=== PATIENT | male | born 1965 | race American Indian/Alaskan Native ===

== ENCOUNTER 2018-01-12 09:58 | Inpatient (IN) | payer OTHER ==
[2018-01-12 10:37] LABS: Mean Corpuscular HGB Conc 31 % (32-34); Mean Corpuscular Hemoglobin 28 pg (28-32); Mean Corpuscular Volume 90 fl (84-94); Platelet Count 263 K/mm3 (140-440); Red Blood Count 4.35 M/mm3 (3.65-5.03)
[2018-01-12 10:50] LABS: Hematocrit 39.3 % (35.5-45.6)
[2018-01-12 10:52] LABS: Calcium 8.2 mg/dL (8.4-10.2)
[2018-01-12 11:02] LABS: Bilirubin,Urine NEG (Negative); Blood,Urine MOD (Negative); Color,Urine Yellow (Yellow); Urobilinogen,Urine < 2.0 mg/dL (<2.0)
[2018-01-12 11:09] LABS: Basophils % (Manual) 0 % (0.0-1.8); Eosinophils % (Manual) 0 % (0.0-4.3); Total Cells Counted 100
[2018-01-12 11:12] LABS: Acanthocytes Few; Anisocytosis 1+; Burr Cells 2+; Large Platelets Few
[2018-01-12] MEDS ORDERED: NACL 0.9% 1000 ML 1,000 ML ONE ×2 (12:55→16:27)
[2018-01-12] MEDS ORDERED: D50W (25GM) Syringe IV PRN ×3 (13:07→19:39)
[2018-01-12] MEDS ORDERED: KIONEX ONE (13:07)
[2018-01-12] MEDS ORDERED: NACL 0.9% 1000 ML 1,000 ML IV ONE ×3 (13:07→16:30)
--- NOTE | 2018-01-12 13:27 | Emergency Department Report ---
ED General Adult HPI - General Chief complaint: Hyperglycemia Stated complaint: POSS DKA Time Seen by Provider: 01/12/18 11:28 Source: patient Mode of arrival: Wheelchair Limitations: Physical Limitation - History of Present Illness Initial comments: pt is here with diffuse abd. pain and nausea and vomiting.pt. says that he as not taken his insulin in 2 days because he left it at work Onset/Timin (day) -: Gradual Location: abdomen Radiation: non-radiation Severity scale (0 -10): 10 Quality: aching Consistency: constant Improves with: none Worsens with: none Associated Symptoms: nausea/vomiting Treatments Prior to Arrival: none - Related Data Allergies Allergy/AdvReac Type Severity Reaction Status Date / Time No Known Allergies Allergy Unverified 01/12/18 10:02 ED Review of Systems ROS: Stated complaint: POSS DKA Other details as noted in HPI Comment: All other systems reviewed and negative ED Past Medical Hx - Past Medical History Previous Medical History?: Yes Hx Hypertension: Yes Hx CVA: Yes (right sided weakness) Hx Diabetes: Yes (Insulin Pump) Additional medical history: insulin pump usage - Surgical History Past Surgical History?: No - Social History Smoking Status: Current Some Day Smoker Substance Use Type: Alcohol, Marijuana, Prescribed ED Physical Exam - General Limitations: Physical Limitation General appearance: alert, in no apparent distress - Head Head exam: Present: atraumatic, normocephalic - Eye Eye exam: Present: normal appearance. Absent: PERRL - ENT ENT exam: Present: mucous membranes dry - Neck Neck exam: Present: normal inspection - Respiratory Respiratory exam: Present: normal lung sounds bilaterally. Absent: respiratory distress - Cardiovascular Cardiovascular Exam: Present: regular rate, normal rhythm. Absent: systolic murmur, diastolic murmur, rubs, gallop - GI/Abdominal GI/Abdominal exam: Present: soft, tenderness (mild diffuse ttp), normal bowel sounds - Rectal Rectal exam: Present: deferred - Extremities Exam Extremities exam: Present: normal inspection - Back Exam Back exam: Present: normal inspection - Neurological Exam Neurological exam: Present: alert, oriented X3. Absent: CN II-XII intact - Psychiatric Psychiatric exam: Present: normal affect, normal mood - Skin Skin exam: Present: warm, dry, intact, normal color. Absent: rash ED Course Vital Signs 01/12/18 01/12/18 01/12/18 10:02 12:14 13:15 Temperature 97.8 F 98.9 F Pulse Rate 118 H 130 H Respiratory 20 22 24 Rate Blood Pressure 176/118 208/96 O2 Sat by Pulse 97 98 99 Oximetry ED Medical Decision Making - Lab Data Result diagrams: 01/12/18 10:16 01/12/18 10:16 - Radiology Data Radiology results: report reviewed - Medical Decision Making I spoke to Dr Alvarenga and he was okay with admitting to ICU. Critical care attestation.: If time is entered above; I have spent that time in minutes in the direct care of this critically ill patient, excluding procedure time. ED Disposition Clinical Impression: DKA (diabetic ketoacidoses) Disposition: DC-09 OP ADMIT IP TO THIS HOSP Is pt being admited?: Yes Does the pt Need Aspirin: No Condition: Stable Instructions: Diabetic Ketoacidosis (ED) Referrals: PRIMARY CARE, [Primary Care Provider] - 3-5 Days Time of Disposition: 13:34 Print Language: ITALIAN
[2018-01-12] MEDS ORDERED: HumuLIN R IV ONE (13:42)
[2018-01-12 13:46] LABS: Calcium 7.9 mg/dL (8.4-10.2)
[2018-01-12] MEDS ORDERED: D5W/0.45% NACL/KCL 20 MEQ 20 MEQ/1,000 ML BAG IV SCH (14:00)
[2018-01-12] MEDS ORDERED: CALCIUM GLUCONATE 1,000 MG in NACL 0.9% 100 ML IV ONE (14:00)
[2018-01-12] MEDS: HumuLIN R 100 UNITS in NACL 0.9% 99 ML IV SCH (15:00)
[2018-01-12] MEDS ORDERED: PERCOCET 5/325 PO PRN (15:01)
[2018-01-12] MEDS ORDERED: DILAUDID IV PRN (15:01)
[2018-01-12] MEDS ORDERED: AMBIEN PO PRN (15:01)
[2018-01-12] MEDS ORDERED: ZOFRAN IV PRN (15:01)
[2018-01-12] MEDS ORDERED: TYLENOL PO PRN (15:01)
[2018-01-12] MEDS ORDERED: SODIUM CHLORIDE FLUSH SYRINGE 10 ML IV PRN (15:01)
--- NOTE | 2018-01-12 15:01 | History and Physical Report ---
History of Present Illness Date of examination: 01/12/18 Date of admission: 01/12/18 13:36 Chief complaint: CC Abd pain Nausea and vomiting for 1 day. History of present illness: History of Present Illness: Patient with Hx of IDDM comes in for Nausea Vomiting and abdominal pain of 1 day.Patient has not been taking any insulin for 2 days.He left his Insulin at work and not taking his insulin for 2 days.No fever or chills. Past Medical History Hypertension: Yes CVA: Yes (right sided weakness) Diabetes: Yes (Insulin Pump) Additional medical history: Insulin pump usage Surgical History Past Surgical History?: No Social History Smoking Status: Current Some Day Smoker Substance Use Type: Alcohol, Marijuana, Prescribed Family History DM Medications and Allergies Allergies Allergy/AdvReac Type Severity Reaction Status Date / Time No Known Allergies Allergy Unverified 01/12/18 10:02 Active Meds: Active Medications Dextrose (D50w (25gm) Syringe) 0 ml IV ONCE PRN PRN Reason: Hypoglycemia Heparin Sodium (Porcine) (Heparin) 5,000 unit SUB-Q Q8H MUSA Potassium Chloride/Dextrose/Sod Cl (D5w/0.45% Nacl/Kcl 20 Meq) 20 meq in 1,000 mls @ 125 mls/hr IV DIRECT MUSA Insulin Human Regular 100 (units/ Sodium Chloride) 100 mls @ 1 mls/hr IV TITR MUSA; Protocol Review of Systems All systems: negative Constitutional: no weight loss, no weight gain, no fever, no chills, no sweats, no night sweats Ears, nose, mouth and throat: no hoarseness, no sore throat, no swelling in mouth, no swelling in throat Cardiovascular: no chest pain, no orthopnea, no palpitations, no rapid/ irregular heart beat, no edema, no syncope, no lightheadedness, no shortness of breath Respiratory: no cough, no cough with sputum, no excessive sputum, no hemoptysis , no shortness of breath, no dyspnea on exertion Gastrointestinal: abdominal pain, nausea, vomiting, no diarrhea, no constipation Genitourinary Male: no dysuria, no hematuria, no flank pain, no discharge Rectal: no pain Musculoskeletal: no neck stiffness, no neck pain, no shooting arm pain, no arm numbness/tingling, no low back pain Integumentary: no rash, no pruritis, no redness, no sores Neurological: no head injury, no transient paralysis, no paralysis, no weakness Psychiatric: no anxiety, no memory loss, no change in sleep habits, no sleep disturbances, no insomnia, no hypersomnia Endocrine: polydipsia, polyuria, nocturia Hematologic/Lymphatic: no easy bruising, no easy bleeding Exam - Constitutional Vitals: Temp Pulse Resp BP Pulse Ox 98.9 F 130 H 24 208/96 99 01/12/18 12:14 01/12/18 12:14 01/12/18 13:15 01/12/18 12:14 01/12/18 13:15 General appearance: Present: mild distress, well-nourished - EENT Eyes: Present: PERRL ENT: hearing intact, clear oral mucosa - Neck Neck: Present: supple, normal ROM - Respiratory Respiratory effort: normal Respiratory: bilateral: CTA - Cardiovascular Heart rate: 90 Rhythm: regular Heart Sounds: Present: S1 & S2. Absent: rub, click - Extremities Extremities: no ischemia, pulses intact, pulses symmetrical, No edema Peripheral Pulses: within normal limits - Abdominal General gastrointestinal: Present: soft, non-tender, non-distended, normal bowel sounds Male genitourinary: Present: normal - Rectal Rectal Exam: deferred - Integumentary Integumentary: Present: clear, warm, dry - Musculoskeletal Musculoskeletal: gait normal, strength equal bilaterally - Psychiatric Psychiatric: appropriate mood/affect, intact judgment & insight - Neurologic Neurologic: CNII-XII intact, moves all extremities - Allied Health Allied health notes reviewed: nursing, case management Results - Labs CBC & Chem 7: 01/12/18 10:16 01/12/18 16:08 Labs: Laboratory Last Values WBC 15.4 K/mm3 (4.5-11.0) H 01/12/18 10:16 RBC 4.35 M/mm3 (3.65-5.03) 01/12/18 10:16 Hgb 12.0 gm/dl (11.8-15.2) 01/12/18 10:16 Hct 39.3 % (35.5-45.6) 01/12/18 10:16 MCV 90 fl (84-94) 01/12/18 10:16 MCH 28 pg (28-32) 01/12/18 10:16 MCHC 31 % (32-34) L 01/12/18 10:16 RDW 14.0 % (13.2-15.2) 01/12/18 10:16 Plt Count 263 K/mm3 (140-440) 01/12/18 10:16 Add Manual Diff Complete 01/12/18 10:16 Total Counted 100 01/12/18 10:16 Seg Neutrophils % Wheelchair Van Operator First Responder 01/12/18 10:16 Seg Neuts % (Manual) 94.0 % (40.0-70.0) H 01/12/18 10:16 Band Neutrophils % 0 % 01/12/18 10:16 Lymphocytes % (Manual) 4.0 % (13.4-35.0) L 01/12/18 10:16 Reactive Lymphs % (Man) 0 % 01/12/18 10:16 Monocytes % (Manual) 2.0 % (0.0-7.3) 01/12/18 10:16 Eosinophils % (Manual) 0 % (0.0-4.3) 01/12/18 10:16 Basophils % (Manual) 0 % (0.0-1.8) 01/12/18 10:16 Metamyelocytes % 0 % 01/12/18 10:16 Myelocytes % 0 % 01/12/18 10:16 Promyelocytes % 0 % 01/12/18 10:16 Blast Cells % 0 % 01/12/18 10:16 Nucleated RBC % Not Reportable 01/12/18 10:16 Seg Neutrophils # Man 14.5 K/mm3 (1.8-7.7) H 01/12/18 10:16 Band Neutrophils # 0.0 K/mm3 01/12/18 10:16 Lymphocytes # (Manual) 0.6 K/mm3 (1.2-5.4) L 01/12/18 10:16 Abs React Lymphs (Man) 0.0 K/mm3 01/12/18 10:16 Monocytes # (Manual) 0.3 K/mm3 (0.0-0.8) 01/12/18 10:16 Eosinophils # (Manual) 0.0 K/mm3 (0.0-0.4) 01/12/18 10:16 Basophils # (Manual) 0.0 K/mm3 (0.0-0.1) 01/12/18 10:16 Metamyelocytes # 0.0 K/mm3 01/12/18 10:16 Myelocytes # 0.0 K/mm3 01/12/18 10:16 Promyelocytes # 0.0 K/mm3 01/12/18 10:16 Blast Cells # 0.0 K/mm3 01/12/18 10:16 WBC Morphology Not Reportable 01/12/18 10:16 Hypersegmented Neuts Not Reportable 01/12/18 10:16 Hyposegmented Neuts Not Reportable 01/12/18 10:16 Hypogranular Neuts Not Reportable 01/12/18 10:16 Smudge Cells Not Reportable 01/12/18 10:16 Toxic Granulation Not Reportable 01/12/18 10:16 Toxic Vacuolation Not Reportable 01/12/18 10:16 Dohle Bodies Not Reportable 01/12/18 10:16 Pelger-Huet Anomaly Not Reportable 01/12/18 10:16 Loi Rods Not Reportable 01/12/18 10:16 Platelet Estimate Appears normal 01/12/18 10:16 Clumped Platelets Not Reportable 01/12/18 10:16 Plt Clumps, EDTA Not Reportable 01/12/18 10:16 Large Platelets Few 01/12/18 10:16 Giant Platelets Not Reportable 01/12/18 10:16 Platelet Satelliting Not Reportable 01/12/18 10:16 Plt Morphology Comment Not Reportable 01/12/18 10:16 RBC Morphology Not Reportable 01/12/18 10:16 Dimorphic RBCs Not Reportable 01/12/18 10:16 Polychromasia Few 01/12/18 10:16 Hypochromasia Not Reportable 01/12/18 10:16 Poikilocytosis Not Reportable 01/12/18 10:16 Anisocytosis 1+ 01/12/18 10:16 Microcytosis Not Reportable 01/12/18 10:16 Macrocytosis Not Reportable 01/12/18 10:16 Spherocytes Not Reportable 01/12/18 10:16 Pappenheimer Bodies Not Reportable 01/12/18 10:16 Sickle Cells Not Reportable 01/12/18 10:16 Target Cells Not Reportable 01/12/18 10:16 Tear Drop Cells Not Reportable 01/12/18 10:16 Ovalocytes Not Reportable 01/12/18 10:16 Helmet Cells Not Reportable 01/12/18 10:[address] [place] Bodies Not Reportable 01/12/18 10:16 [place] Rings Not Reportable 01/12/18 10:16 [place] Cells 2+ 01/12/18 10:16 Bite Cells Not Reportable 01/12/18 10:16 Crenated Cell Not Reportable 01/12/18 10:16 Elliptocytes Not Reportable 01/12/18 10:16 Acanthocytes (Spur) Few 01/12/18 10:16 Rouleaux Not Reportable 01/12/18 10:16 Hemoglobin C Crystals Not Reportable 01/12/18 10:16 Schistocytes Not Reportable 01/12/18 10:16 Malaria parasites Not Reportable 01/12/18 10:16 Lev Bodies Not Reportable 01/12/18 10:16 Hem Pathologist Commnt No 01/12/18 10:16 VBG pH 7.211 (7.320-7.420) L 01/12/18 10:16 Sodium 130 mmol/L (137-145) L 01/12/18 13:21 Potassium 6.6 mmol/L (3.6-5.0) H* 01/12/18 13:21 Chloride 85.5 mmol/L (98-107) L 01/12/18 13:21 Carbon Dioxide 8 mmol/L (22-30) L* 01/12/18 13:21 Anion Gap 43 mmol/L 01/12/18 13:21 BUN 55 mg/dL (9-20) H 01/12/18 13:21 Creatinine 2.2 mg/dL (0.8-1.5) H 01/12/18 13:21 Estimated GFR 38 ml/min 01/12/18 13:21 BUN/Creatinine Ratio 25 % 01/12/18 13:21 Glucose 907 mg/dL (75-100) H* 01/12/18 13:21 POC Glucose > 500 (70-105) H 01/12/18 10:04 Calcium 7.9 mg/dL (8.4-10.2) L 01/12/18 13:21 Phosphorus 6.70 mg/dL (2.5-4.5) H 01/12/18 13:21 Magnesium 2.00 mg/dL (1.7-2.3) 01/12/18 13:21 Urine Color Yellow (Yellow) 01/12/18 10:56 Urine Turbidity Clear (Clear) 01/12/18 10:56 Urine pH 5.0 (5.0-7.0) 01/12/18 10:56 Ur Specific [place] 1.020 (1.003-1.030) 01/12/18 10:56 Urine Protein 100 mg/dl mg/dL (Negative) 01/12/18 10:56 Urine Glucose (UA) >=500 mg/dL (Negative) 01/12/18 10:56 Urine Ketones 20 mg/dL (Negative) 01/12/18 10:56 Urine Blood Mod (Negative) 01/12/18 10:56 Urine Nitrite Neg (Negative) 01/12/18 10:56 Urine Bilirubin Neg (Negative) 01/12/18 10:56 Urine Urobilinogen < 2.0 mg/dL (<2.0) 01/12/18 10:56 Ur Leukocyte Esterase Neg (Negative) 01/12/18 10:56 Urine WBC (Auto) 1.0 /HPF (0.0-6.0) 01/12/18 10:56 Urine RBC (Auto) 2.0 /HPF (0.0-6.0) 01/12/18 10:56 Assessment and Plan Assessment and plan: The high probability of a clinically significant, sudden or life threatening deterioration of the [Pulmonary, cadiac, renal] system(s) required my full and direct attention, intervention and personal management. The aggregate critical care time was [35] minutes. This time is in addition to time spent performing reported procedures but includes the following: [x] Data Review and interpretation [x] Patient assessment and monitoring of vital signs [x] Documentation [x] Medication orders and management Advance Directives: Yes (full code) VTE prophylaxis?: Chemical Plan of care discussed with patient/family: Yes - Patient Problems (1) DKA (diabetic ketoacidoses) Current Visit: Yes Status: Acute Qualifiers: Diabetes mellitus type: type 2 Plan to address problem: DKA protocol initiated Large Anion gap of 40 Dischaarge insulin regimen to be adjusted-Will defer to Hospitalist team (2) Hyperkalemia Current Visit: Yes Status: Acute Plan to address problem: Patient onIV Insulin drip K level should correct IV fluids for now (3) Acute hyponatremia Current Visit: Yes Status: Acute Plan to address problem: Sec to severe Hyperglycemia [place] correct with correction of glucose levels (4) Metabolic acidosis Current Visit: Yes Status: Acute Plan to address problem: Severe cont DKA protocol (5) DVT prophylaxis Current Visit: Yes Status: Acute Plan to address problem: On Heparin
[2018-01-12] MEDS ORDERED: MORPHINE IV PRN (15:23)
[2018-01-12 15:40] LABS: Creatinine,Urine 41.1 mg/dL (0.1-20.0)
[2018-01-12] MEDS: HEPARIN SUB-Q SCH ×3 (15:48→23:16)
[2018-01-12 16:00] LABS: Microalbumin/Creatinine Ratio 2457.4 ug/mg
[2018-01-12] MEDS ORDERED: HumuLIN R 100 UNITS in NACL 0.9% 99 ML IV SCH ×2 (16:00→20:00)
[2018-01-12 16:53] LABS: Calcium 7.8 mg/dL (8.4-10.2)
[2018-01-12 16:58] LABS: Chol/HDL Ratio 3.23 %
[2018-01-12] MEDS: KCL 10MEQ/100ML 10 MEQ/100 ML BAG IV SCH ×4 (19:57→22:16)
[2018-01-12 20:26] LABS: Calcium 7.7 mg/dL (8.4-10.2)
[2018-01-12 22:03] LABS: Calcium 7.5 mg/dL (8.4-10.2)
[2018-01-12] MEDS: SODIUM CHLORIDE FLUSH SYRINGE 10 ML IV SCH (23:16)
[2018-01-12 23:24] LABS: Calcium 7.5 mg/dL (8.4-10.2)
[2018-01-13] MEDS ORDERED: NACL 0.9% 1000 ML 1,000 ML ONE (00:31)
[2018-01-13] MEDS ORDERED: NACL 0.9% 1000 ML 1,000 ML IV SCH ×2 (01:00→07:00)
[2018-01-13] MEDS: HumuLIN R 100 UNITS in NACL 0.9% 99 ML IV SCH (01:42)
[2018-01-13 02:45] LABS: Calcium 7.6 mg/dL (8.4-10.2)
[2018-01-13 04:23] LABS: Calcium 7.5 mg/dL (8.4-10.2)
[2018-01-13 04:27] LABS: Albumin 2.1 g/dL (3.9-5); Calcium 7.6 mg/dL (8.4-10.2)
[2018-01-13] MEDS ORDERED: HumuLIN R SUB-Q ONE (05:51)
[2018-01-13] MEDS: HEPARIN SUB-Q SCH (06:48)
[2018-01-13 07:07] LABS: Calcium 7.3 mg/dL (8.4-10.2)
[2018-01-13] MEDS ORDERED: HumuLIN R SUB-Q SCH (07:30)
[2018-01-13] MEDS ORDERED: LANTUS SUB-Q ONE (09:42)
[2018-01-13] MEDS ORDERED: D50W (25GM) Syringe IV PRN (09:44)
[2018-01-13] MEDS ORDERED: K-DUR PO ONE (09:46)
[2018-01-13] MEDS: SODIUM CHLORIDE FLUSH SYRINGE 10 ML IV SCH ×2 (11:11→22:50)
--- NOTE | 2018-01-13 13:12 | Progress Note ---
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 He was treated with insulin drip and anion gap closed, insulin drip was stopped, he was placed on sliding scale but not long-acting insulin last night. This morning prior to me taking over care, his Blood glucose drop to 64 on bmp and nurse covered him with dextrose. Now blood sugars over 200 but Patient feels better and he is tolerating liquids. -DKA: ordered long acting insulin, he can resume insulin pump at home, adjusted ssi -Hypoglycemia, resolved -Tobacco dep: peer counselor on stopping -CVA with late effect: continue secondary prevention. dvt/gi prop reviewed Disposition: if blood glucose less than 300 and tolerating diet, anion gap stays close then d/c tomorrow. CCT 35 minutes, treating DKA History Interval history: Patient was seen and examined. Follow-up on current diagnosis of abdominal pain , nausea which is improved. He denies any vomiting currently. Overnight uneventful. Patient denies any chest pain, shortness breath, or severe headaches. Imaging, nursing note, chart, labs and old chart reviewed. Discussed with patient. Hospitalist Physical - Physical exam Narrative exam: GEN: WDWN, NAD, AWAKE, ALERT, ORIENTATED 3 HEENT: NCAT, EOMI, PERRL, OP Clear NECK: supple, no adenopathy, no thyromegaly, no JVD CVS/HEART: RRR, NORMAL S1S2, pulses present bilaterally CHEST/LUNGS: CTA B, Symmetrical chest expansion, good air entry bilaterally GI/Abdomen: soft, NTND, good bowel sounds, no guarding or rebound /Bladder: no suprapubic tenderness, no CVA or paraspinal tenderness EXT/Skin: no c/c/e, no obvious rash MSK: Right hemiparesis Neuro: CN 2-12 grossly intact, no new focal deficits Psych: calm - Constitutional Vitals: Temp Pulse Resp BP Pulse Ox 98.7 F 112 H 16 183/90 99 01/13/18 12:49 01/13/18 12:49 01/13/18 12:49 01/13/18 12:49 01/13/18 12:49 General appearance: Present: well-nourished Results - Labs CBC & Chem 7: 01/12/18 10:16 01/13/18 06:08 Labs: Laboratory Last Values WBC 15.4 K/mm3 (4.5-11.0) H 01/12/18 10:16 RBC 4.35 M/mm3 (3.65-5.03) 01/12/18 10:16 Hgb 12.0 gm/dl (11.8-15.2) 01/12/18 10:16 Hct 39.3 % (35.5-45.6) 01/12/18 10:16 MCV 90 fl (84-94) 01/12/18 10:16 MCH 28 pg (28-32) 01/12/18 10:16 MCHC 31 % (32-34) L 01/12/18 10:16 RDW 14.0 % (13.2-15.2) 01/12/18 10:16 Plt Count 263 K/mm3 (140-440) 01/12/18 10:16 Add Manual Diff Complete 01/12/18 10:16 Total Counted 100 01/12/18 10:16 Seg Neutrophils % [employer] Visitor 01/12/18 10:16 Seg Neuts % (Manual) 94.0 % (40.0-70.0) H 01/12/18 10:16 Band Neutrophils % 0 % 01/12/18 10:16 Lymphocytes % (Manual) 4.0 % (13.4-35.0) L 01/12/18 10:16 Reactive Lymphs % (Man) 0 % 01/12/18 10:16 Monocytes % (Manual) 2.0 % (0.0-7.3) 01/12/18 10:16 Eosinophils % (Manual) 0 % (0.0-4.3) 01/12/18 10:16 Basophils % (Manual) 0 % (0.0-1.8) 01/12/18 10:16 Metamyelocytes % 0 % 01/12/18 10:16 Myelocytes % 0 % 01/12/18 10:16 Promyelocytes % 0 % 01/12/18 10:16 Blast Cells % 0 % 01/12/18 10:16 Nucleated RBC % Not Reportable 01/12/18 10:16 Seg Neutrophils # Man 14.5 K/mm3 (1.8-7.7) H 01/12/18 10:16 Band Neutrophils # 0.0 K/mm3 01/12/18 10:16 Lymphocytes # (Manual) 0.6 K/mm3 (1.2-5.4) L 01/12/18 10:16 Abs React Lymphs (Man) 0.0 K/mm3 01/12/18 10:16 Monocytes # (Manual) 0.3 K/mm3 (0.0-0.8) 01/12/18 10:16 Eosinophils # (Manual) 0.0 K/mm3 (0.0-0.4) 01/12/18 10:16 Basophils # (Manual) 0.0 K/mm3 (0.0-0.1) 01/12/18 10:16 Metamyelocytes # 0.0 K/mm3 01/12/18 10:16 Myelocytes # 0.0 K/mm3 01/12/18 10:16 Promyelocytes # 0.0 K/mm3 01/12/18 10:16 Blast Cells # 0.0 K/mm3 01/12/18 10:16 WBC Morphology Not Reportable 01/12/18 10:16 Hypersegmented Neuts Not Reportable 01/12/18 10:16 Hyposegmented Neuts Not Reportable 01/12/18 10:16 Hypogranular Neuts Not Reportable 01/12/18 10:16 Smudge Cells Not Reportable 01/12/18 10:16 Toxic Granulation Not Reportable 01/12/18 10:16 Toxic Vacuolation Not Reportable 01/12/18 10:16 Dohle Bodies Not Reportable 01/12/18 10:16 Pelger-Huet Anomaly Not Reportable 01/12/18 10:16 Loi Rods Not Reportable 01/12/18 10:16 Platelet Estimate Appears normal 01/12/18 10:16 Clumped Platelets Not Reportable 01/12/18 10:16 Plt Clumps, EDTA Not Reportable 01/12/18 10:16 Large Platelets Few 01/12/18 10:16 Giant Platelets Not Reportable 01/12/18 10:16 Platelet Satelliting Not Reportable 01/12/18 10:16 Plt Morphology Comment Not Reportable 01/12/18 10:16 RBC Morphology Not Reportable 01/12/18 10:16 Dimorphic RBCs Not Reportable 01/12/18 10:16 Polychromasia Few 01/12/18 10:16 Hypochromasia Not Reportable 01/12/18 10:16 Poikilocytosis Not Reportable 01/12/18 10:16 Anisocytosis 1+ 01/12/18 10:16 Microcytosis Not Reportable 01/12/18 10:16 Macrocytosis Not Reportable 01/12/18 10:16 Spherocytes Not Reportable 01/12/18 10:16 Pappenheimer Bodies Not Reportable 01/12/18 10:16 Sickle Cells Not Reportable 01/12/18 10:16 Target Cells Not Reportable 01/12/18 10:16 Tear Drop Cells Not Reportable 01/12/18 10:16 Ovalocytes Not Reportable 01/12/18 10:16 Helmet Cells Not Reportable 01/12/18 10:16 [place] Bodies Not Reportable 01/12/18 10:16 [place] Rings Not Reportable 01/12/18 10:16 [place] Cells 2+ 01/12/18 10:16 Bite Cells Not Reportable 01/12/18 10:16 Crenated Cell Not Reportable 01/12/18 10:16 Elliptocytes Not Reportable 01/12/18 10:16 Acanthocytes (Spur) Few 01/12/18 10:16 Rouleaux Not Reportable 01/12/18 10:16 Hemoglobin C Crystals Not Reportable 01/12/18 10:16 Schistocytes Not Reportable 01/12/18 10:16 Malaria parasites Not Reportable 01/12/18 10:16 Lev Bodies Not Reportable 01/12/18 10:16 Hem Pathologist Commnt No 01/12/18 10:16 VBG pH 7.211 (7.320-7.420) L 01/12/18 10:16 Sodium 146 mmol/L (137-145) H 01/13/18 06:08 Potassium 3.6 mmol/L (3.6-5.0) 01/13/18 06:08 Chloride 108.8 mmol/L (98-107) H 01/13/18 06:08 Carbon Dioxide 21 mmol/L (22-30) L 01/13/18 06:08 Anion Gap 20 mmol/L 01/13/18 06:08 BUN 52 mg/dL (9-20) H 01/13/18 06:08 Creatinine 1.8 mg/dL (0.8-1.5) H 01/13/18 06:08 Estimated GFR 48 ml/min 01/13/18 06:08 BUN/Creatinine Ratio 29 % 01/13/18 06:08 Glucose 133 mg/dL (75-100) H 01/13/18 06:08 POC Glucose 253 (70-105) H 01/13/18 09:54 Hemoglobin A1c 8.3 % (4-6) H 01/12/18 16:08 Calcium 7.3 mg/dL (8.4-10.2) L 01/13/18 06:08 Phosphorus 2.80 mg/dL (2.5-4.5) D 01/12/18 19:44 Magnesium 2.10 mg/dL (1.7-2.3) 01/12/18 19:44 Total Bilirubin 0.20 mg/dL (0.1-1.2) 01/13/18 04:03 AST 40 units/L (5-40) 01/13/18 04:03 ALT 26 units/L (7-56) 01/13/18 04:03 Alkaline Phosphatase 88 units/L (35-129) 01/13/18 04:03 Total Protein 5.5 g/dL (6.3-8.2) L 01/13/18 04:03 Albumin 2.1 g/dL (3.9-5) L 01/13/18 04:03 Albumin/Globulin Ratio 0.6 % 01/13/18 04:03 Triglycerides 109 mg/dL (2-149) 01/12/18 16:08 Cholesterol 191 mg/dL (50-199) 01/12/18 16:08 LDL Cholesterol Direct 124 mg/dL (50-130) 01/12/18 16:08 HDL Cholesterol 59 mg/dL (40-59) 01/12/18 16:08 Cholesterol/HDL Ratio 3.23 % 01/12/18 16:08 Urine Color Yellow (Yellow) 01/12/18 10:56 Urine Turbidity Clear (Clear) 01/12/18 10:56 Urine pH 5.0 (5.0-7.0) 01/12/18 10:56 Ur Specific [place] 1.020 (1.003-1.030) 01/12/18 10:56 Urine Protein 100 mg/dl mg/dL (Negative) 01/12/18 10:56 Urine Glucose (UA) >=500 mg/dL (Negative) 01/12/18 10:56 Urine Ketones 20 mg/dL (Negative) 01/12/18 10:56 Urine Blood Mod (Negative) 01/12/18 10:56 Urine Nitrite Neg (Negative) 01/12/18 10:56 Urine Bilirubin Neg (Negative) 01/12/18 10:56 Urine Urobilinogen < 2.0 mg/dL (<2.0) 01/12/18 10:56 Ur Leukocyte Esterase Neg (Negative) 01/12/18 10:56 Urine WBC (Auto) 1.0 /HPF (0.0-6.0) 01/12/18 10:56 Urine RBC (Auto) 2.0 /HPF (0.0-6.0) 01/12/18 10:56 Urine Creatinine 41.1 mg/dL (0.1-20.0) H 01/12/18 10:56 Urine Microalbumin 101.0 mg/dL (0.1-34.0) H 01/12/18 10:56 Microalb/Creat Ratio 2457.4 ug/mg 01/12/18 10:56
[2018-01-13] MEDS ORDERED: NORMODYNE IV PRN (14:13)
[2018-01-13] MEDS: HumaLOG SUB-Q SCH ×3 (15:31→22:48)
[2018-01-13] MEDS ORDERED: LANTUS SUB-Q SCH (22:00)
[2018-01-13] MEDS ORDERED: NON-FORMULARY (Terazosin 5 MG) PO SCH (22:00)
[2018-01-13] MEDS: MINIPRESS PO SCH (22:47)
[2018-01-13] MEDS: COREG PO SCH (22:48)
[2018-01-14 05:43] LABS: Hematocrit 26.2 % (35.5-45.6); Hemoglobin 8.9 gm/dl (11.8-15.2); Mean Corpuscular HGB Conc 34 % (32-34); Mean Corpuscular Hemoglobin 28 pg (28-32); Mean Corpuscular Volume 81 fl (84-94); Platelet Count 211 K/mm3 (140-440); Red Blood Count 3.24 M/mm3 (3.65-5.03); Red Cell Distribution Width 13.3 % (13.2-15.2)
[2018-01-14 05:59] LABS: Calcium 7.3 mg/dL (8.4-10.2)
[2018-01-14] MEDS ORDERED: LANTUS SUB-Q SCH (08:00)
[2018-01-14 08:22] VITALS: BP 165/77
[2018-01-14] MEDS: HumaLOG SUB-Q SCH ×2 (08:56→12:19)
[2018-01-14] MEDS ORDERED: BABY ASPIRIN PO SCH (10:00)
[2018-01-14] MEDS ORDERED: PROzac PO SCH (10:00)
[2018-01-14] MEDS: COREG PO SCH (10:49)
--- NOTE | 2018-01-14 11:43 | Discharge Summary ---
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 He was treated with insulin drip and anion gap closed, insulin drip was stopped, he was placed on sliding scale but not long-acting insulin last night. This morning prior to me taking over care, his Blood glucose drop to 64 on bmp and nurse covered him with dextrose. Now blood sugars over 200 but Patient feels better and he is tolerating liquids. -DKA: ordered long acting insulin, he can resume insulin pump at home, adjusted ssi -Hypoglycemia, resolved -Tobacco dep: primary counselor on stopping -CVA with late effect: continue secondary prevention. Severe Malnutrition, poa: discuss his diet and made recommendations dvt/gi prop reviewed Disposition: DC-01 TO HOME OR SELFCARE Time spent for discharge: 35 minutes Core Measure Documentation - Palliative Care Palliative Care/ Comfort Measures: Not Applicable - Core Measures Any of the following diagnoses?: none - VTE Discharge Requirements Deep Vein Thrombosis/Pulmonary Embolism Present on Admission: No Has pt received <5 days of overlap therapy or INR<2.0: No Anticoagulant overlap therapy prescribed at discharge: No Contraindication No Overlap Therapy order at DC: Not Indicated Exam - Physical Exam Narrative exam: GEN: WDWN, NAD, AWAKE, ALERT, ORIENTATED 3 HEENT: NCAT, EOMI, PERRL, OP Clear NECK: supple, no adenopathy, no thyromegaly, no JVD CVS/HEART: RRR, NORMAL S1S2, pulses present bilaterally CHEST/LUNGS: CTA B, Symmetrical chest expansion, good air entry bilaterally GI/Abdomen: soft, NTND, good bowel sounds, no guarding or rebound /Bladder: no suprapubic tenderness, no CVA or paraspinal tenderness EXT/Skin: no c/c/e, no obvious rash MSK: Right hemiparesis Neuro: CN 2-12 grossly intact, no new focal deficits Psych: calm - Constitutional Vitals: Temp Pulse Resp BP Pulse Ox 97.8 F 85 16 165/77 96 01/14/18 07:22 01/14/18 10:55 01/14/18 07:22 01/14/18 07:22 01/14/18 07:22 Plan Activity: other (no strenous activity until cleared by pcp) Diet: diabetic Special Instructions: record blood sugar diary (with meals 3 times a day) Follow up with: PRIMARY CARE, [Primary Care Provider] - 3-5 Days
[2018-01-14] MEDS: MINIPRESS PO SCH (12:00)
[2018-01-14] MEDS: SODIUM CHLORIDE FLUSH SYRINGE 10 ML IV SCH (12:25)
== END 2018-01-14 13:00 | disposition home or self-care (01) | DRG 637 ==
LOC: ED 09:58 → CC1 13:36 → 2B-ACE 01-13 09:59 → 3A 01-14 03:19
PROVIDERS: ADMIT Internal Medicine; ATTEND Internal Medicine
DX: E13.10 Other specified diabetes mellitus with ketoacidosis without coma (principal); E43 Unspecified severe protein-calorie malnutrition; I69.351 Hemiplegia and hemiparesis following cerebral infarction affecting right dominant side; E87.1 Hypo-osmolality and hyponatremia; N28.9 Disorder of kidney and ureter, unspecified; E87.5 Hyperkalemia; I10 Essential (primary) hypertension; F17.200 Nicotine dependence, unspecified, uncomplicated; E13.649 Other specified diabetes mellitus with hypoglycemia without coma; Z68.26 Body mass index [BMI] 26.0-26.9, adult
CPT/HCPCS: 36415; 80048; 80053; 80061; 81001; 82043; 82805; 82962; 83036; 83735; 84100; 85007; 85025; 85027; 96361; 96365; 96366; 96372; 96375; A9270-GY; J0610; J1644; J1815; J7030

== ENCOUNTER 2018-03-25 13:34 | Inpatient (IN) | payer OTHER ==
[2018-03-25] MEDS ORDERED: NACL 0.9% 1000 ML 2,000 ML ONE (13:55)
[2018-03-25] MEDS ORDERED: VASELINE LIP THERAPY TP PRN (13:56)
[2018-03-25] MEDS ORDERED: ARTIFICIAL TEARS OPHTH OINT OU PRN (13:56)
[2018-03-25] MEDS ORDERED: DIPRIVAN 10 MG/ML 1,000 MG/100 ML BOTTLE IV ONE (13:56)
[2018-03-25] MEDS ORDERED: HumuLIN R ONE (13:57)
[2018-03-25] MEDS ORDERED: NACL 0.9% 500 ML IV SCH (14:00)
[2018-03-25] MEDS: DIPRIVAN 10 MG/ML 1,000 MG/100 ML BOTTLE IV SCH (14:05)
[2018-03-25] MEDS ORDERED: ZEMURON IV ONE (14:07)
[2018-03-25] MEDS ORDERED: AMIDATE IV ONE (14:07)
[2018-03-25] MEDS ORDERED: HumuLIN R IV ONE ×2 (14:08→15:29)
[2018-03-25 14:41] LABS: Basophils # (Auto) 0.1 K/mm3 (0.0-0.1); Basophils % (Auto) 0.4 % (0.0-1.8); Lymphocytes # (Auto) 1.3 K/mm3 (1.2-5.4); Lymphocytes % (Auto) 8.5 % (13.4-35.0); Mean Corpuscular HGB Conc 28 % (32-34); Mean Corpuscular Hemoglobin 27 pg (28-32); Mean Corpuscular Volume 95 fl (84-94); Monocytes # (Auto) 0.7 K/mm3 (0.0-0.8); Monocytes % (Auto) 4.7 % (0.0-7.3); Platelet Count 269 K/mm3 (140-440); Red Blood Count 3.87 M/mm3 (3.65-5.03); Red Cell Distribution Width 14.5 % (13.2-15.2)
[2018-03-25 14:43] LABS: Hematocrit 36.9 % (35.5-45.6); Hemoglobin 10.5 gm/dl (11.8-15.2)
[2018-03-25] MEDS ORDERED: VANCOMYCIN PHARMACY TO DOSE IV SCH (15:00)
[2018-03-25 15:03] LABS: Bacteria,Urine 1+ /HPF (Negative); Bilirubin,Urine NEG (Negative); Blood,Urine SM (Negative); Color,Urine Yellow (Yellow); Mucus,Urine FEW /HPF; Urobilinogen,Urine < 2.0 mg/dL (<2.0)
[2018-03-25 15:06] LABS: Calcium 8.4 mg/dL (8.4-10.2)
[2018-03-25 15:09] LABS: Alanine Aminotransferase 37 units/L (7-56); Albumin 2.6 g/dL (3.9-5)
[2018-03-25 15:10] LABS: Amphetamine Screen,Urine PRESUMPTIVE NEGATIVE; Benzodiazepines Screen,Urine PRESUMPTIVE NEGATIVE; Cannabinoid Screen,Urine PRESUMPTIVE NEGATIVE; Cocaine Screen,Urine PRESUMPTIVE NEGATIVE; Methadone Screen,Urine PRESUMPTIVE NEGATIVE; Opiate Screen,Urine PRESUMPTIVE NEGATIVE
[2018-03-25 15:13] LABS: Bilirubin,Direct < 0.2 mg/dL (0-0.2)
[2018-03-25] MEDS ORDERED: SODIUM BICARBONATE IV ONE ×2 (15:30→15:57)
[2018-03-25] MEDS ORDERED: NACL 0.9% 1000 ML 1,000 ML IV ONE (15:31)
[2018-03-25] MEDS ORDERED: CALCIUM CHLORIDE IVP ONE (15:31)
[2018-03-25] MEDS: ZOSYN/NS 3.375GM/50ML 3.375 GM/50 ML BAG IV SCH ×2 (15:45→18:30)
[2018-03-25] MEDS ORDERED: XYLOCAINE 1% 20 mL ONE (15:58)
[2018-03-25] MEDS ORDERED: HumuLIN R 100 UNITS in NACL 0.9% 99 ML IV SCH (16:00)
[2018-03-25] MEDS ORDERED: VANCOMYCIN 1,500 MG in NACL 0.9% 500 ML 500 ML IV ONE (16:00)
[2018-03-25] MEDS ORDERED: VANCOMYCIN 1,250 MG in NACL 0.9% 250ML 250 ML IV SCH (16:00)
[2018-03-25 16:09] LABS: Calcium 7.5 mg/dL (8.4-10.2)
[2018-03-25] MEDS ORDERED: CALCIUM CHLORIDE 1,000 MG in NACL 0.9% 100 ML IV ONE (17:00)
--- NOTE | 2018-03-25 17:10 | Consultation ---
History of Present Illness Consult date: 03/25/18 Requesting physician: BELEN PINK Reason for consult: other (Acute Hypoxemic Respiratory Failure; Severe Sepsis; DKA) History of present illness: PULMONARY/CCM CONSULT NOTE (Full note dictated) Please see dictated notes for full details Medications and Allergies Allergies Allergy/AdvReac Type Severity Reaction Status Date / Time No Known Allergies Allergy Unverified 01/12/18 10:02 Home Medications Medication Instructions Recorded Confirmed Last Taken Type Aspirin 81 mg PO DAILY 01/13/18 01/13/18 Unknown History AtorvaSTATin [Lipitor] 40 mg PO QHS 01/13/18 01/13/18 Unknown History Carvedilol [Coreg] 6.25 mg PO BID 01/13/18 01/13/18 Unknown History FLUoxetine [PROzac] 10 mg PO QDAY 01/13/18 01/13/18 Unknown History Fluconazole [Diflucan] 200 mg PO 1XW 01/13/18 01/13/18 Unknown History Lisinopril/Hydrochlorothiazide 1 tab PO QDAY 01/13/18 01/13/18 Unknown History [Zestoretic 20-12.5 mg] Terazosin [Hytrin] 5 mg PO QHS 01/13/18 01/13/18 Unknown History Active Meds: Active Medications Dextrose (D50w (25gm) Syringe) 0 ml IV ONCE PRN PRN Reason: Hypoglycemia Hydrophilic Ointment (Vaseline Lip Therapy) 1 applic TP Q2HR PRN PRN Reason: Dry Lips Propofol (Diprivan 10 Mg/Ml) 1,000 mg in 100 mls @ 2.585 mls/hr IV TITR MUSA; Protocol Last Admin: 03/25/18 14:05 Dose: 5 mcg/kg/min, 2.585 mls/hr Piperacillin Sod/Tazobactam Sod (Zosyn/Ns 3.375gm/50ml) 3.375 gm in 50 mls @ 100 mls/hr IV Q6HR MUSA; Protocol Insulin Human Regular 100 (units/ Sodium Chloride) 100 mls @ 1 mls/hr IV TITR MUSA; Protocol Vancomycin HCl 1,500 mg/ (Sodium Chloride) 515 mls @ 333.333 mls/hr IV ONCE ONE Stop: 03/25/18 17:32 Vancomycin HCl 1,250 mg/ (Sodium Chloride) 262.5 mls @ 166.667 mls/hr IV Q24H MUSA Calcium Chloride 1,000 mg/ (Sodium Chloride) 110 mls @ 330 mls/hr IV ONCE ONE Stop: 03/25/18 17:19 Multi-Ingred Cream/Lotion/Oil/Oint (Artificial Tears Ophth Oint) 1 applic OU Q4HR PRN PRN Reason: Dry Eye(s) Sodium Chloride (Nacl 0.9% 500 Ml) 1 ml IV DIRECT MUSA Vancomycin HCl (Vancomycin Pharmacy To Dose) 1 each IV PKCONSULT MUSA; Protocol Physical Examination Vital signs: Vital Signs Pulse Resp 144 H 46 H 03/25/18 13:41 03/25/18 13:41 Results - Laboratory Findings CBC and BMP: 03/25/18 14:00 03/25/18 15:40 ABG POC ABG pH 6.952 (7.35-7.45) L 03/25/18 14:29 POC ABG pCO2 25.8 (35-45) L 03/25/18 14:29 POC ABG pO2 559 (80-105) H 03/25/18 14:29 POC ABG HCO3 5.7 03/25/18 14:29 POC ABG Total CO2 6 03/25/18 14:29 POC ABG O2 Sat 100 03/25/18 14:29 Abnormal lab findings: Abnormal Labs 03/25/18 03/25/18 03/25/18 13:48 14:00 14:00 WBC 15.3 H Hgb 10.5 L MCV 95 H MCH 27 L MCHC 28 L Lymph % (Auto) 8.5 L Seg Neutrophils % 86.4 H Seg Neutrophils # 13.2 H POC ABG pH POC ABG pCO2 POC ABG pO2 VBG pH Sodium 132 L Potassium 8.1 H* Chloride 87.8 L Carbon Dioxide 3 L* BUN 43 H Creatinine 2.6 H Glucose 1026 H* POC Glucose > 500 H Lactic Acid Calcium Phosphorus Albumin 03/25/18 03/25/18 03/25/18 14:00 14:08 14:29 WBC Hgb MCV MCH MCHC Lymph % (Auto) Seg Neutrophils % Seg Neutrophils # POC ABG pH 6.952 L POC ABG pCO2 25.8 L POC ABG pO2 559 H VBG pH Sodium Potassium Chloride Carbon Dioxide BUN Creatinine Glucose POC Glucose Lactic Acid 10.10 H* Calcium Phosphorus 8.70 H Albumin 2.6 L 03/25/18 03/25/18 03/25/18 14:41 15:40 15:40 WBC Hgb MCV MCH MCHC Lymph % (Auto) Seg Neutrophils % Seg Neutrophils # POC ABG pH POC ABG pCO2 POC ABG pO2 VBG pH 7.000 L* Sodium Potassium 6.7 H* Chloride 97.5 L Carbon Dioxide 5 L* BUN 43 H Creatinine 2.5 H Glucose 893 H* POC Glucose Lactic Acid Calcium 7.5 L Phosphorus 9.10 H Albumin
--- NOTE | 2018-03-25 17:20 | XRay Report ---
FINAL REPORT PROCEDURE: XR CHEST 1V AP TECHNIQUE: Chest radiograph anteroposterior view. CPT 70161 HISTORY: line placement COMPARISON: No prior studies are available for comparison. FINDINGS: There is an endotracheal to in place. The tip lies 5 centimeters above the marleni. Right jugular central venous line in place. Tip projects in the mid SVC. No evidence of pneumothorax. Lungs are clear. Tip of the right lateral costophrenic angle is excluded, this does limit the exam. Lung armas otherwise. No acute bony abnormalities are seen. Heart is magnified due to projection although appears to be size. Pulmonary vasculature appears normal. IMPRESSION: Endotracheal tube and central venous line in place as described. No evidence of pneumothorax. No acute abnormalities are identified..
--- NOTE | 2018-03-25 17:36 | Emergency Department Report ---
ED General Adult HPI - General Chief complaint: Hyperglycemia Stated complaint: SEVERINO Time Seen by Provider: 03/25/18 14:40 Source: EMS Mode of arrival: Stretcher Limitations: Altered Mental Status - History of Present Illness Initial comments: This is a 52-year-old insulin-dependent diabetic who was found essentially obtunded in his residence. No history was obtainable from the patient. Family members state that they have not seen him for perhaps 48 hours. He was found by his brother and obviously dire condition and EMS was notified. Medics transported to the patient to this facility fighting a sugar to be above the scale. The patient had been disconnected from his insulin pump. He was placed in a resuscitation room. He was deemed to be unable to adequately protect his airway. His respiratory rate was about 50. He was thus intubated using rapid sequence intubation technique. Later I spoke to the [facility] doctor (Dr. Carrera? sp). She stated that actually the patient had been seen in the [facility] on Sunday. He was found to have a sugar greater than 1000. He was given insulin and fluid. Apparently he was discharged with a sugar in the 400s. At that time he was fully ambulatory. He was documented to be in "good spirits". -: days(s) - Related Data Home Medications Medication Instructions Recorded Confirmed Last Taken Aspirin 81 mg PO DAILY 01/13/18 01/13/18 Unknown AtorvaSTATin [Lipitor] 40 mg PO QHS 01/13/18 01/13/18 Unknown Carvedilol [Coreg] 6.25 mg PO BID 01/13/18 01/13/18 Unknown FLUoxetine [PROzac] 10 mg PO QDAY 01/13/18 01/13/18 Unknown Fluconazole [Diflucan] 200 mg PO 1XW 01/13/18 01/13/18 Unknown Lisinopril/Hydrochlorothiazide 1 tab PO QDAY 01/13/18 01/13/18 Unknown [Zestoretic 20-12.5 mg] Terazosin [Hytrin] 5 mg PO QHS 01/13/18 01/13/18 Unknown Allergies Allergy/AdvReac Type Severity Reaction Status Date / Time No Known Allergies Allergy Unverified 01/12/18 10:02 ED Review of Systems ROS: Stated complaint: SEVERINO Other details as noted in HPI Comment: Unobtainable due to pts medical conditions ED Past Medical Hx - Past Medical History Previous Medical History?: Yes Hx Hypertension: Yes Hx CVA: Yes (right sided weakness) Hx Diabetes: Yes (Has an Insulin pump at home) Hx HIV: No Additional medical history: insulin pump usage - Surgical History Past Surgical History?: No - Social History Smoking Status: Never Smoker - Medications Home Medications: Home Medications Medication Instructions Recorded Confirmed Last Taken Type Aspirin 81 mg PO DAILY 01/13/18 01/13/18 Unknown History AtorvaSTATin [Lipitor] 40 mg PO QHS 01/13/18 01/13/18 Unknown History Carvedilol [Coreg] 6.25 mg PO BID 01/13/18 01/13/18 Unknown History FLUoxetine [PROzac] 10 mg PO QDAY 01/13/18 01/13/18 Unknown History Fluconazole [Diflucan] 200 mg PO 1XW 01/13/18 01/13/18 Unknown History Lisinopril/Hydrochlorothiazide 1 tab PO QDAY 01/13/18 01/13/18 Unknown History [Zestoretic 20-12.5 mg] Terazosin [Hytrin] 5 mg PO QHS 01/13/18 01/13/18 Unknown History ED Physical Exam - General Limitations: Altered Mental Status General appearance: obtunded - Head Head exam: Present: atraumatic - Eye Eye exam: Present: PERRL, other (somewhat roving eye movements). Absent: scleral icterus Pupils: Present: other (reactive) - ENT ENT exam: Present: mucous membranes dry - Neck Neck exam: Absent: tenderness, meningismus - Respiratory Respiratory exam: Present: normal lung sounds bilaterally - Cardiovascular Cardiovascular Exam: Present: tachycardia - GI/Abdominal GI/Abdominal exam: Present: soft, normal bowel sounds. Absent: distended, tenderness (none apparent), guarding, rebound - Extremities Exam Extremities exam: Present: normal inspection - Neurological Exam Neurological exam: Present: altered, other (moving all extremities but essentially obtunded. Does not specifically respond to pain stimulation.) - Psychiatric Psychiatric exam: Present: other (inapplicable) - Skin Skin exam: Absent: warm, dry ED Course Vital Signs 03/25/18 03/25/18 03/25/18 13:41 13:46 13:57 Pulse Rate 144 H 140 H 130 H Respiratory 46 H 46 H Rate Blood Pressure 148/50 O2 Sat by Pulse 100 100 Oximetry 03/25/18 03/25/18 03/25/18 14:00 14:15 14:30 Pulse Rate 137 H 128 H 122 H Respiratory 55 H 30 H 30 H Rate Blood Pressure 148/50 117/51 91/44 O2 Sat by Pulse 100 100 97 Oximetry 03/25/18 03/25/18 03/25/18 14:45 15:00 15:15 Pulse Rate 121 H 118 H 117 H Respiratory 30 H 30 H 30 H Rate Blood Pressure 89/43 76/39 84/43 O2 Sat by Pulse 99 96 97 Oximetry 03/25/18 03/25/18 03/25/18 15:30 15:45 16:00 Pulse Rate 119 H 123 H 128 H Respiratory 30 H 28 H 28 H Rate Blood Pressure 85/41 96/44 109/61 O2 Sat by Pulse 98 100 Oximetry 03/25/18 16:47 Pulse Rate 129 H Respiratory Rate Blood Pressure 128/60 O2 Sat by Pulse 100 Oximetry - Reevaluation(s) Reevaluation #1: The patient was given 50 mg a rock erroneous man 6 mg of etomidate. He was intubated using a Mac 4 and #8 Lithuanian endotracheal tube secured at 23 cm at the teeth. End-tidal CO2 was positive. There were good breath sounds bilaterally. Tube position was confirmed with an x-ray. The patient was placed on a propofol drip for sedation. The patient had a 12-lead EKG that which was consistent with hyperkalemia and tachycardia at about 135. He was given 6 units of insulin empirically. His laboratory returned shortly thereafter. He was found to have a sugar of greater than 1000. His CO2 was 3 and his potassium was greater than 8. He was given 6 additional units of insulin IV. His pH was 6.9. I decided that one amp of bicarbonate and 1 amp of calcium chloride was reasonable. This was given. Insulin drip was started. He received at least 4 L of normal saline during the course of care. I spoke to her plant protection officer about the patient's findings. He felt that the patient's metabolic disorder with likely improve with the above interventions. He was in agreement with what had been done so far. He stated he would see the patient. On reexam the patient continued to the lethargic. His propofol drip was turned off because his blood pressure was somewhat low. The blood pressure did improve with additional fluids. However due to his lactic acid level of 10 and obvious dire illness I decided to place a central line. This was placed without difficulty, usual Seldinger technique, 1 puncture in the left internal jugular vein. A confirmatory x-ray showed good endotracheal and line placement and no acute pulmonary process. I spoke with Dr. Cooper the shearing machine tender. It was Dr. Murphy that came to see and examine the patient. We went over the findings thus far. Dr. Harrison has admitted the patient to the intensive care unit. He is still being head held in the emergency department. Veins hemodynamically stable. Further care will be with the above consultants and the hospitalist service. 03/25/18 19:26 Reevaluation #2: The patient was given empiric antibiotics shortly after my initial encounter processes Zosyn and vancomycin. 03/25/18 19:32 03/25/18 19:[address] of the patient's head has long been ordered. I will remind the nursing staff of the need to complete. ED Medical Decision Making - Lab Data Result diagrams: 03/25/18 14:00 03/25/18 18:12 Laboratory Results - last 24 hr 03/25/18 03/25/18 03/25/18 13:48 14:00 14:00 WBC 15.3 H RBC 3.87 Hgb 10.5 L Hct 36.9 MCV 95 H MCH 27 L MCHC 28 L RDW 14.5 Plt Count 269 Lymph % (Auto) 8.5 L [place] % (Auto) 4.7 Eos % (Auto) 0.0 Baso % (Auto) 0.4 Lymph # 1.3 [place]racken # 0.7 Eos # 0.0 Baso # 0.1 Seg Neutrophils % 86.4 H Seg Neutrophils # 13.2 H POC ABG pH POC ABG pCO2 POC ABG pO2 POC ABG HCO3 POC ABG Total CO2 POC ABG O2 Sat POC ABG Base Excess VBG pH FiO2 Sodium Potassium Chloride Carbon Dioxide Anion Gap BUN Creatinine Estimated GFR BUN/Creatinine Ratio Glucose POC Glucose > 500 H Lactic Acid Calcium Phosphorus Magnesium Total Bilirubin Direct Bilirubin Indirect Bilirubin AST ALT Alkaline Phosphatase Total Protein Albumin Albumin/Globulin Ratio Urine Color Yellow Urine Turbidity Clear Urine pH 5.0 Ur Specific [place] 1.021 Urine Protein 100 mg/dl Urine Glucose (UA) >=500 Urine Ketones 80 Urine Blood Sm Urine Nitrite Neg Urine Bilirubin Neg Urine Urobilinogen < 2.0 Ur Leukocyte Esterase Neg Urine WBC (Auto) 1.0 Urine RBC (Auto) 1.0 Urine Bacteria (Auto) 1+ Urine Mucus Few Urine Opiates Screen Urine Methadone Screen Ur Barbiturates Screen Ur Phencyclidine Scrn Ur Amphetamines Screen U Benzodiazepines Scrn Urine Cocaine Screen U Marijuana (THC) Screen Drugs of Abuse Note 03/25/18 03/25/18 03/25/18 14:00 14:00 14:08 WBC RBC Hgb Hct MCV MCH MCHC RDW Plt Count Lymph % (Auto) [place] % (Auto) Eos % (Auto) Baso % (Auto) Lymph # [place] # Eos # Baso # Seg Neutrophils % Seg Neutrophils # POC ABG pH POC ABG pCO2 POC ABG pO2 POC ABG HCO3 POC ABG Total CO2 POC ABG O2 Sat POC ABG Base Excess VBG pH FiO2 Sodium 132 L Potassium 8.1 H* Chloride 87.8 L Carbon Dioxide 3 L* Anion Gap 49 BUN 43 H Creatinine 2.6 H Estimated GFR 32 BUN/Creatinine Ratio 17 Glucose 1026 H* POC Glucose Lactic Acid 10.10 H* Calcium 8.4 Phosphorus 8.70 H Magnesium 2.20 Total Bilirubin 0.30 Direct Bilirubin < 0.2 Indirect Bilirubin 0.1 AST 34 ALT 37 Alkaline Phosphatase 113 Total Protein 6.5 Albumin 2.6 L Albumin/Globulin Ratio 0.7 Urine Color Urine Turbidity Urine pH Ur Specific [place] Urine Protein Urine Glucose (UA) Urine Ketones Urine Blood Urine Nitrite Urine Bilirubin Urine Urobilinogen Ur Leukocyte Esterase Urine WBC (Auto) Urine RBC (Auto) Urine Bacteria (Auto) Urine Mucus Urine Opiates Screen Urine Methadone Screen Ur Barbiturates Screen Ur Phencyclidine Scrn Ur Amphetamines Screen U Benzodiazepines Scrn Urine Cocaine Screen U Marijuana (THC) Screen Drugs of Abuse Note 03/25/18 03/25/18 03/25/18 14:19 14:29 14:41 WBC RBC Hgb Hct MCV MCH MCHC RDW Plt Count Lymph % (Auto) [place] % (Auto) Eos % (Auto) Baso % (Auto) Lymph # [place] # Eos # Baso # Seg Neutrophils % Seg Neutrophils # POC ABG pH 6.952 L POC ABG pCO2 25.8 L POC ABG pO2 559 H POC ABG HCO3 5.7 POC ABG Total CO2 6 POC ABG O2 Sat 100 POC ABG Base Excess -26 VBG pH 7.000 L* FiO2 100 Sodium Potassium Chloride Carbon Dioxide Anion Gap BUN Creatinine Estimated GFR BUN/Creatinine Ratio Glucose POC Glucose Lactic Acid Calcium Phosphorus Magnesium Total Bilirubin Direct Bilirubin Indirect Bilirubin AST ALT Alkaline Phosphatase Total Protein Albumin Albumin/Globulin Ratio Urine Color Urine Turbidity Urine pH Ur Specific [place] Urine Protein Urine Glucose (UA) Urine Ketones Urine Blood Urine Nitrite Urine Bilirubin Urine Urobilinogen Ur Leukocyte Esterase Urine WBC (Auto) Urine RBC (Auto) Urine Bacteria (Auto) Urine Mucus Urine Opiates Screen Presumptive negative Urine Methadone Screen Presumptive negative Ur Barbiturates Screen Presumptive negative Ur Phencyclidine Scrn Presumptive negative Ur Amphetamines Screen Presumptive negative U Benzodiazepines Scrn Presumptive negative Urine Cocaine Screen Presumptive negative U Marijuana (THC) Screen Presumptive negative Drugs of Abuse Note Disclamer 03/25/18 03/25/18 15:40 15:40 WBC RBC Hgb Hct MCV MCH MCHC RDW Plt Count Lymph % (Auto) [place] % (Auto) Eos % (Auto) Baso % (Auto) Lymph # [place] # Eos # Baso # Seg Neutrophils % Seg Neutrophils # POC ABG pH POC ABG pCO2 POC ABG pO2 POC ABG HCO3 POC ABG Total CO2 POC ABG O2 Sat POC ABG Base Excess VBG pH FiO2 Sodium 137 Potassium 6.7 H* Chloride 97.5 L Carbon Dioxide 5 L* Anion Gap 41 BUN 43 H Creatinine 2.5 H Estimated GFR 33 BUN/Creatinine Ratio 17 Glucose 893 H* POC Glucose Lactic Acid Calcium 7.5 L Phosphorus 9.10 H Magnesium 2.10 Total Bilirubin Direct Bilirubin Indirect Bilirubin AST ALT Alkaline Phosphatase Total Protein Albumin Albumin/Globulin Ratio Urine Color Urine Turbidity Urine pH Ur Specific [place] Urine Protein Urine Glucose (UA) Urine Ketones Urine Blood Urine Nitrite Urine Bilirubin Urine Urobilinogen Ur Leukocyte Esterase Urine WBC (Auto) Urine RBC (Auto) Urine Bacteria (Auto) Urine Mucus Urine Opiates Screen Urine Methadone Screen Ur Barbiturates Screen Ur Phencyclidine Scrn Ur Amphetamines Screen U Benzodiazepines Scrn Urine Cocaine Screen U Marijuana (THC) Screen Drugs of Abuse Note - EKG Data -: EKG Interpreted by Me EKG shows normal: sinus rhythm Rate: tachycardia - EKG Data Interpretation: other (consistent with hyperkalemia) - Radiology Data interpreted by me: Good tube physicians as above. No acute pulmonary process seen. Critical Care Time: Yes Critical care time in (mins) excluding proc time.: 120 Critical care attestation.: If time is entered above; I have spent that time in minutes in the direct care of this critically ill patient, excluding procedure time. ED Disposition Clinical Impression: Hyperkalemia, Metabolic acidosis, Lactic acidosis DKA (diabetic ketoacidoses) Qualifiers: Diabetes mellitus type: type 1 Diabetes mellitus complication detail: with coma Qualified Code(s): E10.11 - Type 1 diabetes mellitus with ketoacidosis with coma Acute renal failure Qualifiers: Acute renal failure type: unspecified Qualified Code(s): N17.9 - Acute kidney failure, unspecified Disposition: DC-09 OP ADMIT IP TO THIS HOSP Is pt being admited?: Yes Does the pt Need Aspirin: Yes Condition: Stable Time of Disposition: 19:36
--- NOTE | 2018-03-25 18:06 | History and Physical Report ---
History of Present Illness Date of examination: 03/25/18 Date of admission: 03/25/18 16:07 Chief complaint: Chief complaint: Abd pain Nausea and vomiting for 1 day. History of present illness: History of present illness: History of Present Illness: Patient with Hx of IDDM comes in for Nausea Vomiting and abdominal pain of 2 days duration.Patient has not been taking any insulin for 2 days.He left his Insulin at work and not taking his insulin for 2 days.No fever or chills. Patient has an insulin pump. Patient is very noncompliant. Patient is admitted for about 3 days and discharged on 03/16/2018. Patient's blood sugars at the time of discharge were 200 and now the blood sugars remain around 800. Patient is obtunded and lethargic--- hence intubated in the ER for protection of airway. No fever or chills. No shortness of breath. No diarrhea. No recent travel. Past Medical History Hypertension: Yes CVA: Yes (right sided weakness) Diabetes: Yes (Insulin Pump) Additional medical history: Insulin pump usage Surgical History Past Surgical History?: No Social History Smoking Status: Current Some Day Smoker Substance Use Type: Alcohol, Marijuana, Prescribed Family History DM Medications and Allergies Allergies Allergy/AdvReac Type Severity Reaction Status Date / Time No Known Allergies Allergy Unverified 01/12/18 10:02 Active Meds: Active Medications Dextrose (D50w (25gm) Syringe) 0 ml IV ONCE PRN PRN Reason: Hypoglycemia Heparin Sodium (Porcine) (Heparin) 5,000 unit SUB-Q Q8H [facility] Potassium Chloride/Dextrose/Sod Cl (D5w/0.45% Nacl/Kcl 20 Meq) 20 meq in 1,000 mls @ 125 mls/hr IV DIRECT [facility] Insulin Human Regular 100 (units/ Sodium Chloride) 100 mls @ 1 mls/hr IV TITR [facility]; Protocol Review of Systems All systems: negative Constitutional: no weight loss, no weight gain, no fever, no chills, no sweats, no night sweats Ears, nose, mouth and throat: no hoarseness, no sore throat, no swelling in mouth, no swelling in throat Cardiovascular: no chest pain, no orthopnea, no palpitations, no rapid/ irregular heart beat, no edema, no syncope, no lightheadedness, no shortness of breath Respiratory: no cough, no cough with sputum, no excessive sputum, no hemoptysis , no shortness of breath, no dyspnea on exertion Gastrointestinal: abdominal pain, nausea, vomiting, no diarrhea, no constipation Genitourinary Male: no dysuria, no hematuria, no flank pain, no discharge Rectal: no pain Musculoskeletal: no neck stiffness, no neck pain, no shooting arm pain, no arm numbness/tingling, no low back pain Integumentary: no rash, no pruritis, no redness, no sores Neurological: no head injury, no transient paralysis, no paralysis, no weakness Psychiatric: no anxiety, no memory loss, no change in sleep habits, no sleep disturbances, no insomnia, no hypersomnia Endocrine: polydipsia, polyuria, nocturia Hematologic/Lymphatic: no easy bruising, no easy bleeding Medications and Allergies Allergies Allergy/AdvReac Type Severity Reaction Status Date / Time No Known Allergies Allergy Unverified 01/12/18 10:02 Home Medications Medication Instructions Recorded Confirmed Last Taken Type Aspirin 81 mg PO DAILY 01/13/18 01/13/18 Unknown History AtorvaSTATin [Lipitor] 40 mg PO QHS 01/13/18 01/13/18 Unknown History Carvedilol [Coreg] 6.25 mg PO BID 01/13/18 01/13/18 Unknown History FLUoxetine [PROzac] 10 mg PO QDAY 01/13/18 01/13/18 Unknown History Fluconazole [Diflucan] 200 mg PO 1XW 01/13/18 01/13/18 Unknown History Lisinopril/Hydrochlorothiazide 1 tab PO QDAY 01/13/18 01/13/18 Unknown History [Zestoretic 20-12.5 mg] Terazosin [Hytrin] 5 mg PO QHS 01/13/18 01/13/18 Unknown History Active Meds: Active Medications Dextrose (D50w (25gm) Syringe) 0 ml IV ONCE PRN PRN Reason: Hypoglycemia Hydrophilic Ointment (Vaseline Lip Therapy) 1 applic TP Q2HR PRN PRN Reason: Dry Lips Propofol (Diprivan 10 Mg/Ml) 1,000 mg in 100 mls @ 2.585 mls/hr IV TITR [facility]; Protocol Last Admin: 03/25/18 14:05 Dose: 5 mcg/kg/min, 2.585 mls/hr Piperacillin Sod/Tazobactam Sod (Zosyn/Ns 3.375gm/50ml) 3.375 gm in 50 mls @ 100 mls/hr IV Q6HR [facility]; Protocol Insulin Human Regular 100 (units/ Sodium Chloride) 100 mls @ 1 mls/hr IV TITR [facility]; Protocol Vancomycin HCl 1,250 mg/ (Sodium Chloride) 262.5 mls @ 166.667 mls/hr IV Q24H [facility] Multi-Ingred Cream/Lotion/Oil/Oint (Artificial Tears Ophth Oint) 1 applic OU Q4HR PRN PRN Reason: Dry Eye(s) Sodium Chloride (Nacl 0.9% 500 Ml) 1 ml IV DIRECT [facility] Vancomycin HCl (Vancomycin Pharmacy To Dose) 1 each IV PKCONSULT [facility]; Protocol Exam - Physical Exam Narrative exam: Patient intubated - Constitutional Vitals: Temp Pulse Resp BP Pulse Ox 129 H 28 H 128/60 100 03/25/18 16:47 03/25/18 16:00 03/25/18 16:47 03/25/18 16:47 General appearance: Present: severe distress, well-nourished - EENT Eyes: Present: PERRL ENT: hearing intact, clear oral mucosa, other (tongue is dry) - Neck Neck: Present: supple, normal ROM - Respiratory Respiratory effort: normal Respiratory: bilateral: CTA - Cardiovascular Heart rate: 130 Rhythm: regular Heart Sounds: Present: S1 & S2. Absent: rub, click - Extremities Extremities: no ischemia, pulses intact, pulses symmetrical, No edema Peripheral Pulses: within normal limits - Abdominal General gastrointestinal: Present: soft, non-tender, non-distended, normal bowel sounds Male genitourinary: Present: normal - Rectal Rectal Exam: deferred - Integumentary Integumentary: Present: clear, warm, dry - Musculoskeletal Musculoskeletal: strength equal bilaterally, generalized weakness - Psychiatric Psychiatric: appropriate mood/affect, intact judgment & insight - Neurologic Neurologic: CNII-XII intact, moves all extremities - Allied Health Allied health notes reviewed: nursing, case management Results - Labs CBC & Chem 7: 03/25/18 14:00 03/25/18 15:40 Labs: Laboratory Last Values WBC 15.3 K/mm3 (4.5-11.0) H 03/25/18 14:00 RBC 3.87 M/mm3 (3.65-5.03) 03/25/18 14:00 Hgb 10.5 gm/dl (11.8-15.2) L 03/25/18 14:00 Hct 36.9 % (35.5-45.6) 03/25/18 14:00 MCV 95 fl (84-94) H 03/25/18 14:00 MCH 27 pg (28-32) L 03/25/18 14:00 MCHC 28 % (32-34) L 03/25/18 14:00 RDW 14.5 % (13.2-15.2) 03/25/18 14:00 Plt Count 269 K/mm3 (140-440) 03/25/18 14:00 Lymph % (Auto) 8.5 % (13.4-35.0) L 03/25/18 14:00 [place] % (Auto) 4.7 % (0.0-7.3) 03/25/18 14:00 Eos % (Auto) 0.0 % (0.0-4.3) 03/25/18 14:00 Baso % (Auto) 0.4 % (0.0-1.8) 03/25/18 14:00 Lymph # 1.3 K/mm3 (1.2-5.4) 03/25/18 14:00 [place] # 0.7 K/mm3 (0.0-0.8) 03/25/18 14:00 Eos # 0.0 K/mm3 (0.0-0.4) 03/25/18 14:00 Baso # 0.1 K/mm3 (0.0-0.1) 03/25/18 14:00 Seg Neutrophils % 86.4 % (40.0-70.0) H 03/25/18 14:00 Seg Neutrophils # 13.2 K/mm3 (1.8-7.7) H 03/25/18 14:00 POC ABG pH 6.952 (7.35-7.45) L 03/25/18 14:29 POC ABG pCO2 25.8 (35-45) L 03/25/18 14:29 POC ABG pO2 559 (80-105) H 03/25/18 14:29 POC ABG HCO3 5.7 03/25/18 14:29 POC ABG Total CO2 6 03/25/18 14:29 POC ABG O2 Sat 100 03/25/18 14:29 POC ABG Base Excess -26 03/25/18 14:29 VBG pH 7.000 (7.320-7.420) L* 03/25/18 14:41 FiO2 100 % 03/25/18 14:29 Sodium 137 mmol/L (137-145) 03/25/18 15:40 Potassium 6.7 mmol/L (3.6-5.0) H* 03/25/18 15:40 Chloride 97.5 mmol/L (98-107) L 03/25/18 15:40 Carbon Dioxide 5 mmol/L (22-30) L* 03/25/18 15:40 Anion Gap 41 mmol/L 03/25/18 15:40 BUN 43 mg/dL (9-20) H 03/25/18 15:40 Creatinine 2.5 mg/dL (0.8-1.5) H 03/25/18 15:40 Estimated GFR 33 ml/min 03/25/18 15:40 BUN/Creatinine Ratio 17 % 03/25/18 15:40 Glucose 893 mg/dL (75-100) H* 03/25/18 15:40 POC Glucose > 500 (70-105) H 03/25/18 13:48 Lactic Acid 10.10 mmol/L (0.7-2.0) H* 03/25/18 14:00 Calcium 7.5 mg/dL (8.4-10.2) L 03/25/18 15:40 Phosphorus 9.10 mg/dL (2.5-4.5) H 03/25/18 15:40 Magnesium 2.10 mg/dL (1.7-2.3) 03/25/18 15:40 Total Bilirubin 0.30 mg/dL (0.1-1.2) 03/25/18 14:08 Direct Bilirubin < 0.2 mg/dL (0-0.2) 03/25/18 14:08 Indirect Bilirubin 0.1 mg/dL 03/25/18 14:08 AST 34 units/L (5-40) 03/25/18 14:08 ALT 37 units/L (7-56) 03/25/18 14:08 Alkaline Phosphatase 113 units/L (35-129) 03/25/18 14:08 Total Protein 6.5 g/dL (6.3-8.2) 03/25/18 14:08 Albumin 2.6 g/dL (3.9-5) L 03/25/18 14:08 Albumin/Globulin Ratio 0.7 % 03/25/18 14:08 Urine Color Yellow (Yellow) 03/25/18 14:00 Urine Turbidity Clear (Clear) 03/25/18 14:00 Urine pH 5.0 (5.0-7.0) 03/25/18 14:00 Ur Specific [place] 1.021 (1.003-1.030) 03/25/18 14:00 Urine Protein 100 mg/dl mg/dL (Negative) 03/25/18 14:00 Urine Glucose (UA) >=500 mg/dL (Negative) 03/25/18 14:00 Urine Ketones 80 mg/dL (Negative) 03/25/18 14:00 Urine Blood Sm (Negative) 03/25/18 14:00 Urine Nitrite Neg (Negative) 03/25/18 14:00 Urine Bilirubin Neg (Negative) 03/25/18 14:00 Urine Urobilinogen < 2.0 mg/dL (<2.0) 03/25/18 14:00 Ur Leukocyte Esterase Neg (Negative) 03/25/18 14:00 Urine WBC (Auto) 1.0 /HPF (0.0-6.0) 03/25/18 14:00 Urine RBC (Auto) 1.0 /HPF (0.0-6.0) 03/25/18 14:00 Urine Bacteria (Auto) 1+ /HPF (Negative) 03/25/18 14:00 Urine Mucus Few /HPF 03/25/18 14:00 Urine Opiates Screen Presumptive negative 03/25/18 14:19 Urine Methadone Screen Presumptive negative 03/25/18 14:19 Ur Barbiturates Screen Presumptive negative 03/25/18 14:19 Ur Phencyclidine Scrn Presumptive negative 03/25/18 14:19 Ur Amphetamines Screen Presumptive negative 03/25/18 14:19 U Benzodiazepines Scrn Presumptive negative 03/25/18 14:19 Urine Cocaine Screen Presumptive negative 03/25/18 14:19 U Marijuana (THC) Screen Presumptive negative 03/25/18 14:19 Drugs of Abuse Note Disclamer 03/25/18 14:19 Short CBC 03/25/18 03/25/18 03/25/18 Range/Units 13:48 14:00 14:00 WBC 15.3 H (4.5-11.0) K/mm3 RBC 3.87 (3.65-5.03) M/mm3 Hgb 10.5 L (11.8-15.2) gm/dl Hct 36.9 (35.5-45.6) % MCV 95 H (84-94) fl MCH 27 L (28-32) pg MCHC 28 L (32-34) % RDW 14.5 (13.2-15.2) % Plt Count 269 (140-440) K/mm3 Lymph % (Auto) 8.5 L (13.4-35.0) % [place] % (Auto) 4.7 (0.0-7.3) % Eos % (Auto) 0.0 (0.0-4.3) % Baso % (Auto) 0.4 (0.0-1.8) % Lymph # 1.3 (1.2-5.4) K/mm3 [place] # 0.7 (0.0-0.8) K/mm3 Eos # 0.0 (0.0-0.4) K/mm3 Baso # 0.1 (0.0-0.1) K/mm3 Seg Neutrophils % 86.4 H (40.0-70.0) % Seg Neutrophils # 13.2 H (1.8-7.7) K/mm3 POC ABG pH (7.35-7.45) POC ABG pCO2 (35-45) POC ABG pO2 (80-105) POC ABG HCO3 POC ABG Total CO2 POC ABG O2 Sat POC ABG Base Excess VBG pH (7.320-7.420) FiO2 % Sodium (137-145) mmol/L Potassium (3.6-5.0) mmol/L Chloride (98-107) mmol/L Carbon Dioxide (22-30) mmol/L Anion Gap mmol/L BUN (9-20) mg/dL Creatinine (0.8-1.5) mg/dL Estimated GFR ml/min BUN/Creatinine Ratio % Glucose (75-100) mg/dL POC Glucose > 500 H (70-105) Lactic Acid (0.7-2.0) mmol/L Calcium (8.4-10.2) mg/dL Phosphorus (2.5-4.5) mg/dL Magnesium (1.7-2.3) mg/dL Total Bilirubin (0.1-1.2) mg/dL Direct Bilirubin (0-0.2) mg/dL Indirect Bilirubin mg/dL AST (5-40) units/L ALT (7-56) units/L Alkaline Phosphatase (35-129) units/L Total Protein (6.3-8.2) g/dL Albumin (3.9-5) g/dL Albumin/Globulin Ratio % Urine Color Yellow (Yellow) Urine Turbidity Clear (Clear) Urine pH 5.0 (5.0-7.0) Ur Specific [place] 1.021 (1.003-1.030) Urine Protein 100 mg/dl (Negative) mg/dL Urine Glucose (UA) >=500 (Negative) mg/dL Urine Ketones 80 (Negative) mg/dL Urine Blood Sm (Negative) Urine Nitrite Neg (Negative) Urine Bilirubin Neg (Negative) Urine Urobilinogen < 2.0 (<2.0) mg/dL Ur Leukocyte Esterase Neg (Negative) Urine WBC (Auto) 1.0 (0.0-6.0) /HPF Urine RBC (Auto) 1.0 (0.0-6.0) /HPF Urine Bacteria (Auto) 1+ (Negative) /HPF Urine Mucus Few /HPF Urine Opiates Screen Urine Methadone Screen Ur Barbiturates Screen Ur Phencyclidine Scrn Ur Amphetamines Screen U Benzodiazepines Scrn Urine Cocaine Screen U Marijuana (THC) Screen Drugs of Abuse Note 03/25/18 03/25/18 03/25/18 Range/Units 14:00 14:00 14:08 WBC (4.5-11.0) K/mm3 RBC (3.65-5.03) M/mm3 Hgb (11.8-15.2) gm/dl Hct (35.5-45.6) % MCV (84-94) fl MCH (28-32) pg MCHC (32-34) % RDW (13.2-15.2) % Plt Count (140-440) K/mm3 Lymph % (Auto) (13.4-35.0) % [place] % (Auto) (0.0-7.3) % Eos % (Auto) (0.0-4.3) % Baso % (Auto) (0.0-1.8) % Lymph # (1.2-5.4) K/mm3 [place] # (0.0-0.8) K/mm3 Eos # (0.0-0.4) K/mm3 Baso # (0.0-0.1) K/mm3 Seg Neutrophils % (40.0-70.0) % Seg Neutrophils # (1.8-7.7) K/mm3 POC ABG pH (7.35-7.45) POC ABG pCO2 (35-45) POC ABG pO2 (80-105) POC ABG HCO3 POC ABG Total CO2 POC ABG O2 Sat POC ABG Base Excess VBG pH (7.320-7.420) FiO2 % Sodium 132 L (137-145) mmol/L Potassium 8.1 H* (3.6-5.0) mmol/L Chloride 87.8 L (98-107) mmol/L Carbon Dioxide 3 L* (22-30) mmol/L Anion Gap 49 mmol/L BUN 43 H (9-20) mg/dL Creatinine 2.6 H (0.8-1.5) mg/dL Estimated GFR 32 ml/min BUN/Creatinine Ratio 17 % Glucose 1026 H* (75-100) mg/dL POC Glucose (70-105) Lactic Acid 10.10 H* (0.7-2.0) mmol/L Calcium 8.4 (8.4-10.2) mg/dL Phosphorus 8.70 H (2.5-4.5) mg/dL Magnesium 2.20 (1.7-2.3) mg/dL Total Bilirubin 0.30 (0.1-1.2) mg/dL Direct Bilirubin < 0.2 (0-0.2) mg/dL Indirect Bilirubin 0.1 mg/dL AST 34 (5-40) units/L ALT 37 (7-56) units/L Alkaline Phosphatase 113 (35-129) units/L Total Protein 6.5 (6.3-8.2) g/dL Albumin 2.6 L (3.9-5) g/dL Albumin/Globulin Ratio 0.7 % Urine Color (Yellow) Urine Turbidity (Clear) Urine pH (5.0-7.0) Ur Specific [place] (1.003-1.030) Urine Protein (Negative) mg/dL Urine Glucose (UA) (Negative) mg/dL Urine Ketones (Negative) mg/dL Urine Blood (Negative) Urine Nitrite (Negative) Urine Bilirubin (Negative) Urine Urobilinogen (<2.0) mg/dL Ur Leukocyte Esterase (Negative) Urine WBC (Auto) (0.0-6.0) /HPF Urine RBC (Auto) (0.0-6.0) /HPF Urine Bacteria (Auto) (Negative) /HPF Urine Mucus /HPF Urine Opiates Screen Urine Methadone Screen Ur Barbiturates Screen Ur Phencyclidine Scrn Ur Amphetamines Screen U Benzodiazepines Scrn Urine Cocaine Screen U Marijuana (THC) Screen Drugs of Abuse Note 03/25/18 03/25/18 03/25/18 Range/Units 14:19 14:29 14:41 WBC (4.5-11.0) K/mm3 RBC (3.65-5.03) M/mm3 Hgb (11.8-15.2) gm/dl Hct (35.5-45.6) % MCV (84-94) fl MCH (28-32) pg MCHC (32-34) % RDW (13.2-15.2) % Plt Count (140-440) K/mm3 Lymph % (Auto) (13.4-35.0) % [place] % (Auto) (0.0-7.3) % Eos % (Auto) (0.0-4.3) % Baso % (Auto) (0.0-1.8) % Lymph # (1.2-5.4) K/mm3 [place] # (0.0-0.8) K/mm3 Eos # (0.0-0.4) K/mm3 Baso # (0.0-0.1) K/mm3 Seg Neutrophils % (40.0-70.0) % Seg Neutrophils # (1.8-7.7) K/mm3 POC ABG pH 6.952 L (7.35-7.45) POC ABG pCO2 25.8 L (35-45) POC ABG pO2 559 H (80-105) POC ABG HCO3 5.7 POC ABG Total CO2 6 POC ABG O2 Sat 100 POC ABG Base Excess -26 VBG pH 7.000 L* (7.320-7.420) FiO2 100 % Sodium (137-145) mmol/L Potassium (3.6-5.0) mmol/L Chloride (98-107) mmol/L Carbon Dioxide (22-30) mmol/L Anion Gap mmol/L BUN (9-20) mg/dL Creatinine (0.8-1.5) mg/dL Estimated GFR ml/min BUN/Creatinine Ratio % Glucose (75-100) mg/dL POC Glucose (70-105) Lactic Acid (0.7-2.0) mmol/L Calcium (8.4-10.2) mg/dL Phosphorus (2.5-4.5) mg/dL Magnesium (1.7-2.3) mg/dL Total Bilirubin (0.1-1.2) mg/dL Direct Bilirubin (0-0.2) mg/dL Indirect Bilirubin mg/dL AST (5-40) units/L ALT (7-56) units/L Alkaline Phosphatase (35-129) units/L Total Protein (6.3-8.2) g/dL Albumin (3.9-5) g/dL Albumin/Globulin Ratio % Urine Color (Yellow) Urine Turbidity (Clear) Urine pH (5.0-7.0) Ur Specific [place] (1.003-1.030) Urine Protein (Negative) mg/dL Urine Glucose (UA) (Negative) mg/dL Urine Ketones (Negative) mg/dL Urine Blood (Negative) Urine Nitrite (Negative) Urine Bilirubin (Negative) Urine Urobilinogen (<2.0) mg/dL Ur Leukocyte Esterase (Negative) Urine WBC (Auto) (0.0-6.0) /HPF Urine RBC (Auto) (0.0-6.0) /HPF Urine Bacteria (Auto) (Negative) /HPF Urine Mucus /HPF Urine Opiates Screen Presumptive negative Urine Methadone Screen Presumptive negative Ur Barbiturates Screen Presumptive negative Ur Phencyclidine Scrn Presumptive negative Ur Amphetamines Screen Presumptive negative U Benzodiazepines Scrn Presumptive negative Urine Cocaine Screen Presumptive negative U Marijuana (THC) Screen Presumptive negative Drugs of Abuse Note Disclamer 03/25/18 03/25/18 Range/Units 15:40 15:40 WBC (4.5-11.0) K/mm3 RBC (3.65-5.03) M/mm3 Hgb (11.8-15.2) gm/dl Hct (35.5-45.6) % MCV (84-94) fl MCH (28-32) pg MCHC (32-34) % RDW (13.2-15.2) % Plt Count (140-440) K/mm3 Lymph % (Auto) (13.4-35.0) % [place] % (Auto) (0.0-7.3) % Eos % (Auto) (0.0-4.3) % Baso % (Auto) (0.0-1.8) % Lymph # (1.2-5.4) K/mm3 [place] # (0.0-0.8) K/mm3 Eos # (0.0-0.4) K/mm3 Baso # (0.0-0.1) K/mm3 Seg Neutrophils % (40.0-70.0) % Seg Neutrophils # (1.8-7.7) K/mm3 POC ABG pH (7.35-7.45) POC ABG pCO2 (35-45) POC ABG pO2 (80-105) POC ABG HCO3 POC ABG Total CO2 POC ABG O2 Sat POC ABG Base Excess VBG pH (7.320-7.420) FiO2 % Sodium 137 (137-145) mmol/L Potassium 6.7 H* (3.6-5.0) mmol/L Chloride 97.5 L (98-107) mmol/L Carbon Dioxide 5 L* (22-30) mmol/L Anion Gap 41 mmol/L BUN 43 H (9-20) mg/dL Creatinine 2.5 H (0.8-1.5) mg/dL Estimated GFR 33 ml/min BUN/Creatinine Ratio 17 % Glucose 893 H* (75-100) mg/dL POC Glucose (70-105) Lactic Acid (0.7-2.0) mmol/L Calcium 7.5 L (8.4-10.2) mg/dL Phosphorus 9.10 H (2.5-4.5) mg/dL Magnesium 2.10 (1.7-2.3) mg/dL Total Bilirubin (0.1-1.2) mg/dL Direct Bilirubin (0-0.2) mg/dL Indirect Bilirubin mg/dL AST (5-40) units/L ALT (7-56) units/L Alkaline Phosphatase (35-129) units/L Total Protein (6.3-8.2) g/dL Albumin (3.9-5) g/dL Albumin/Globulin Ratio % Urine Color (Yellow) Urine Turbidity (Clear) Urine pH (5.0-7.0) Ur Specific [place] (1.003-1.030) Urine Protein (Negative) mg/dL Urine Glucose (UA) (Negative) mg/dL Urine Ketones (Negative) mg/dL Urine Blood (Negative) Urine Nitrite (Negative) Urine Bilirubin (Negative) Urine Urobilinogen (<2.0) mg/dL Ur Leukocyte Esterase (Negative) Urine WBC (Auto) (0.0-6.0) /HPF Urine RBC (Auto) (0.0-6.0) /HPF Urine Bacteria (Auto) (Negative) /HPF Urine Mucus /HPF Urine Opiates Screen Urine Methadone Screen Ur Barbiturates Screen Ur Phencyclidine Scrn Ur Amphetamines Screen U Benzodiazepines Scrn Urine Cocaine Screen U Marijuana (THC) Screen Drugs of Abuse Note BMP 03/25/18 03/25/18 14:00 15:40 Sodium 132 L 137 Potassium 8.1 H* 6.7 H* Chloride 87.8 L 97.5 L Carbon Dioxide 3 L* 5 L* BUN 43 H 43 H Creatinine 2.6 H 2.5 H Glucose 1026 H* 893 H* Calcium 8.4 7.5 L Liver Function 03/25/18 Range/Units 14:08 Total Bilirubin 0.30 (0.1-1.2) mg/dL Direct Bilirubin < 0.2 (0-0.2) mg/dL AST 34 (5-40) units/L ALT 37 (7-56) units/L Alkaline Phosphatase 113 (35-129) units/L Albumin 2.6 L (3.9-5) g/dL Urine 03/25/18 Range/Units 14:00 Urine Color Yellow (Yellow) Urine pH 5.0 (5.0-7.0) Ur Specific [place] 1.021 (1.003-1.030) Urine Protein 100 mg/dl (Negative) mg/dL Urine Glucose (UA) >=500 (Negative) mg/dL - Imaging and Cardiology EKG: report reviewed (heart rate of 139 nonspecific intraventricular conduction delay nonspecific ST-T wave changes and prolonged QT interval EKG interpreted by me) Chest x-ray: report reviewed Assessment and Plan Assessment and plan: The high probability of a clinically significant, sudden or life threatening deterioration of the [Pulmonary, cadiac, renal] system(s) required my full and direct attention, intervention and personal management. The aggregate critical care time was [45] minutes. This time is in addition to time spent performing reported procedures but includes the following: [x] Data Review and interpretation [x] Patient assessment and monitoring of vital signs [x] Documentation [x] Medication orders and management Advance Directives: Yes (full code) VTE prophylaxis?: Chemical Plan of care discussed with patient/family: Yes - Patient Problems (1) DKA (diabetic ketoacidoses) Current Visit: No Status: Acute Qualifiers: Diabetes mellitus type: type 2 Diabetes mellitus complication detail: with coma Qualified Code(s): E11.11 - Type 2 diabetes mellitus with ketoacidosis with coma Plan to address problem: DKA with her unresponsive state. Patient intubated. Vent management IV insulin drip IV fluids Patiently to be counselled once he is extubated and blood sugars are reasonable. Also his home insulin to be adjusted (2) Acute respiratory failure Current Visit: Yes Status: Acute Qualifiers: Respiratory failure complication: hypoxia Qualified Code(s): J96.01 - Acute respiratory failure with hypoxia Plan to address problem: Continue ventilator management and support DuoNeb when necessary (3) Hyperkalemia Current Visit: No Status: Acute Plan to address problem: Should correct with IV insulin IV fluids Better control of diabetes (4) BLEKIS (acute kidney injury) Current Visit: Yes Status: Acute Plan to address problem: BUN/creatinine on March 16 was 41/1.5 today it is 43/2.5. Acute kidney injury secondary to severe dehydration IV fluids for now Nephrology consult requested monitor BUN/creatinine (5) Sepsis Current Visit: Yes Status: Acute Qualifiers: Sepsis type: sepsis due to unspecified organism Qualified Code(s): A41.9 - Sepsis, unspecified organism Plan to address problem: We will start on IV Zosyn pending blood cultures. Urine infection is not there. (6) Metabolic acidosis Current Visit: No Status: Acute Plan to address problem: Severe Sodium bicarbonate to be given (7) DVT prophylaxis Current Visit: No Status: Acute Plan to address problem: Heparin subcutaneously 5000 units every 8 hours
[2018-03-25 18:24] LABS: Creatine Kinase MB 3.7 ng/mL (0.0-4.0)
[2018-03-25] MEDS ORDERED: D50W (25GM) Syringe IV PRN (18:27)
[2018-03-25 18:35] LABS: Chol/HDL Ratio 4.47 %
[2018-03-25 18:40] LABS: Calcium 7.8 mg/dL (8.4-10.2)
[2018-03-25] MEDS ORDERED: D5W/0.45% NACL/KCL 20 MEQ 20 MEQ/1,000 ML BAG IV SCH (19:00)
--- NOTE | 2018-03-25 20:53 | Cat Scan Report ---
FINAL REPORT PROCEDURE: CT HEAD/BRAIN WO CON TECHNIQUE: Computerized tomography of the head was performed without contrast material. HISTORY: altered mental status COMPARISON: No prior studies are available for comparison. FINDINGS: Brain: There is no evidence of intracranial hemorrhage. No parenchymal hemorrhage is seen. No mass lesions or mass effect is identified. No abnormal extra-axial fluid collections or masses are seen. Old lacunar infarcts visualized inferior aspect of the terence. Old lacunar infarct also appears to be visualized in the anterior lateral aspect of the left basal ganglia and left caudate nucleus. There is some decreased density seen in the periventricular white matter without mass effect. This is fairly symmetric and does not exhibit any mass effect consistent with gliosis probably on the basis of microvascular disease or white matter changes of aging. Ventricles: The ventricles are midline. There is mild compensatory enlargement of the anterior horn of the left lateral ventricle secondary to the adjacent mature lacunar infarcts. Ventricles otherwise are normal size. Sulcal pattern and fissures are mildly prominent consistent with mild atrophy. Bones: No evidence of acute fracture. Paranasal sinuses: Visualized portions appear clear. Mastoid air cells: clear IMPRESSION: There is evidence of mild atrophy and gliosis. Old lacunar infarcts seen in the terence, left basal ganglia and left caudate nucleus. No acute intracranial abnormalities are identified. If clinical symptoms persist or worsen consider follow-up CT scan or MRI for further evaluation.
[2018-03-25] MEDS: HumuLIN R 100 UNITS in NACL 0.9% 99 ML IV SCH (21:00)
[2018-03-25] MEDS: NACL 0.9% 1000 ML 1,000 ML IV SCH (21:02)
[2018-03-25 21:28] LABS: Calcium 7.8 mg/dL (8.4-10.2)
[2018-03-25] MEDS ORDERED: ATIVAN IV ONE (21:34)
[2018-03-25] MEDS ORDERED: ZOSYN/NS 2.25 GM/50ML 2.25 GM/50 ML BAG IV SCH (22:00)
[2018-03-25] MEDS ORDERED: PEPCID IV SCH (22:00)
[2018-03-25] MEDS ORDERED: ZOSYN/NS 4.5GM/100ML 4.5 GM/100 ML VIAL IV SCH (22:00)
[2018-03-25] MEDS ORDERED: KIONEX PO ONE (22:16)
[2018-03-25] MEDS ORDERED: NACL 0.9% 500 ML 500 ML IV ONE (23:06)
[2018-03-26] MEDS: ZOSYN/NS 2.25 GM/50ML 2.25 GM/50 ML BAG IV SCH ×2 (00:17→05:43)
--- NOTE | 2018-03-26 00:23 | XRay Report ---
FINAL REPORT PROCEDURE: XR ABDOMEN 1V AP TECHNIQUE: Upright AP view of the abdomen obtained. HISTORY: Evaluate NG tube placement COMPARISON: No prior studies are available for comparison. FINDINGS: NG tube is seen directed into the left side of the stomach. The tube appears to be in good position. Visualized bowel gas pattern is unremarkable. Lower lung armas show no abnormalities. IMPRESSION: NG tube in good position.
[2018-03-26 00:30] LABS: Calcium 7.6 mg/dL (8.4-10.2)
[2018-03-26] MEDS: SODIUM CHLORIDE FLUSH SYRINGE 10 ML IV SCH ×3 (00:42→21:45)
[2018-03-26] MEDS: DIPRIVAN 10 MG/ML 1,000 MG/100 ML BOTTLE IV SCH ×2 (01:27→06:53)
--- NOTE | 2018-03-26 02:30 | XRay Report ---
FINAL REPORT EXAM: XR CHEST 1V AP HISTORY: Follow-up respiratory failure. TECHNIQUE: A single frontal portable radiograph of the chest was obtained. Comparison is made with prior exam 03/25/2018. FINDINGS: Note that the inferior tip of the right costophrenic angle is not fully included on this exam. The cardiac silhouette and mediastinum are within normal limits. An endotracheal tube is seen with its tip approximately 7 cm above the marleni. An enteric tube traverses the thorax into the stomach, though its tip is not included on this film. A right jugular central venous line terminates overlying the SVC. The lungs are clear bilaterally, without focal infiltrate or effusion. There is no pneumothorax. No significant osseous abnormalities are identified. IMPRESSION: No focal infiltrate or effusion. No pneumothorax.
[2018-03-26] MEDS: HumuLIN R 100 UNITS in NACL 0.9% 99 ML IV SCH (02:41)
[2018-03-26] MEDS: NACL 0.9% 1000 ML 1,000 ML IV SCH (03:18)
[2018-03-26 05:19] LABS: Calcium 7.7 mg/dL (8.4-10.2)
[2018-03-26] MEDS ORDERED: NACL 0.45% 1000 ML 1,000 ML IV SCH ×2 (08:00→10:00)
[2018-03-26] MEDS: KCL 10MEQ/100ML 10 MEQ/100 ML BAG IV SCH ×7 (08:13→16:37)
[2018-03-26] MEDS: SODIUM BICARBONATE IV SCH ×2 (08:16→08:17)
[2018-03-26] MEDS ORDERED: AMIDATE IV ONE (08:28)
[2018-03-26] MEDS ORDERED: ZEMURON IV ONE (08:28)
--- NOTE | 2018-03-26 09:08 | Progress Note ---
Assessment and Plan SIRS possibly from DKA Acute hypoxic respiratory failure on MVS Acute encephalopathy( toxic, metabolic) Diabetic ketoacidosis Severe metabolic acidosis Severe Hyperkalemia ( Potassium was 8.1 on admission) BELKIS (acute kidney injury)secondary to severe dehydration BUN/creatinine on March 16 was 41/1.5, on admission was 43/2.5. Hypernatremia -VAP bundle addressed -Continue empiric antibiotics for now, follow cultures then de-escalatebased on SALOME -Continue with volume resuscitation, once blood glucose is <200 change IVF -Change insulin to long acting with scheduled short acting insulin therapy TID -Enteral feeding with steady-carg formula( discussed with pegger dobby looms/ ore trimmer during IDT rounds)\\ -VTE prophylaxis -Stress ulcer prophylaxis -SAT and SBT today ( discussed with RT and RN during IDT rounds) -Titrate propofol to RAAS of -1 -Beard catheter for accurate intake and output measurement in this critically ill patient -Agitation and analgesia -Avoid delirium, avoid benzodiazepines -Electrolyte management -Avoid nephrotoxic agents and adjust all medications for CrCl/GFR -ABGS -CXR prn -Mobility, PT/OT consult placed -Address and treat electrolyte abnormalities The high probability of a clinically significant, sudden or life threatening deterioration of the system( Respiratory, endocrine, cardiovascular) required my full and direct attention, intervention and personal management. The aggregate critical care time was 75 minutes. This time is in addition to time spent performing reported procedures but includes the following: [x] Data Review and interpretation [x] Patient assessment and monitoring of vital signs [x] Documentation [x] Medication orders and management Subjective Date of service: 03/26/18 Principal diagnosis: Acute hypoxic respiratory failure, DKA, BELKIS, Acute encephalopathy Interval history: Documentation per ER MD. Unable to get history from the patient he is orally intubated. This is a 52-year-old insulin-dependent diabetic who was found essentially obtunded in his residence. No history was obtainable from the patient. Family members state that they have not seen him for perhaps 48 hours. He was found by his brother and obviously dire condition and EMS was notified. Medics transported to the patient to this facility fighting a sugar to be above the scale. The patient had been disconnected from his insulin pump. He was placed in a resuscitation room. He was deemed to be unable to adequately protect his airway. His respiratory rate was about 50. He was thus intubated using rapid sequence intubation technique. Later I spoke to the [place] doctor (Dr. Carrera? sp). She stated that actually the patient had been seen in the [facility] on Sunday. He was found to have a sugar greater than 1000. He was given insulin and fluid. Apparently he was discharged with a sugar in the 400s. At that time he was fully ambulatory. He was documented to be in "good spirits". Follow up: Patient was seen and examined. Vitals, labs, medications and chart reviewed. Critically ill on mechanical ventilatory support, and insulin infusion. Hemodynamically..has sinus tachycardia with adequate blood pressure parameters. Overnight issues were addressed remotely over the phone with his RN Patient was discussed in ICU-IDT rounds Objective - Exam Narrative Exam: Patient intubated GENERAL: -[place]ov[place] male lying on bed appeared to be in no discomfort. Intubated No patient -ventialtor dyssynchrony HEENT: Normocephalic. Atraumatic. No conjunctival congestion or icterus. Patient has moist mucous membranes. NECK: Supple. Trachea midline. ET tube in place CHEST/LUNGS: Clear to auscultated bilaterally, mechanically ventilated HEART/CARDIOVASCULAR: Regular in rate and rhythm. S1 and S2 positive. ABDOMEN: Abdomen is soft, non tender. Patient has normal bowel sounds. SKIN: There is no rash. Warm and dry. NEURO: Sedated MUSCULOSKELETAL: No joint effusion or tenderness. EXTRIMITY: No edema, no cyanosis or clubbing. PSYCH: Unable to assess Vital Signs - 12hr 03/25/18 03/25/18 03/25/18 21:54 22:00 22:11 Temperature Pulse Rate 140 H 142 H 137 H Respiratory 27 H 26 H 27 H Rate Blood Pressure 123/59 123/59 O2 Sat by Pulse 100 100 100 Oximetry 03/25/18 03/25/18 03/25/18 22:21 22:30 22:41 Temperature Pulse Rate 137 H 135 H 137 H Respiratory 28 H 27 H 25 H Rate Blood Pressure 126/63 130/61 130/61 O2 Sat by Pulse 100 100 100 Oximetry 03/25/18 03/25/18 03/25/18 22:51 23:00 23:11 Temperature Pulse Rate 134 H 133 H 135 H Respiratory 24 26 H 27 H Rate Blood Pressure 122/56 112/59 112/59 O2 Sat by Pulse 100 100 100 Oximetry 03/25/18 03/25/18 03/25/18 23:21 23:30 23:41 Temperature Pulse Rate 133 H 131 H 129 H Respiratory 24 24 24 Rate Blood Pressure 108/60 107/64 107/64 O2 Sat by Pulse 100 100 100 Oximetry 03/25/18 03/25/18 03/26/18 23:46 23:50 00:00 Temperature 98.8 F Pulse Rate 129 H 129 H Respiratory 25 H 25 H 33 H Rate Blood Pressure 112/59 O2 Sat by Pulse 100 100 100 Oximetry 03/26/18 03/26/18 03/26/18 00:02 00:11 00:21 Temperature Pulse Rate 130 H 129 H 130 H Respiratory 25 H 23 25 H Rate Blood Pressure 117/63 O2 Sat by Pulse 100 100 100 Oximetry 03/26/18 03/26/18 03/26/18 00:22 00:30 00:41 Temperature Pulse Rate 131 H 131 H 131 H Respiratory 24 25 H Rate Blood Pressure 117/63 109/64 109/64 O2 Sat by Pulse 100 100 100 Oximetry 03/26/18 03/26/18 03/26/18 00:51 01:00 01:11 Temperature Pulse Rate 129 H 130 H 129 H Respiratory 24 24 22 Rate Blood Pressure 112/60 116/63 116/63 O2 Sat by Pulse 100 100 100 Oximetry 03/26/18 03/26/18 03/26/18 01:21 01:30 01:41 Temperature Pulse Rate 132 H 127 H 126 H Respiratory 26 H 26 H 29 H Rate Blood Pressure 111/62 105/59 105/59 O2 Sat by Pulse 100 100 100 Oximetry 03/26/18 03/26/18 03/26/18 01:51 01:57 02:00 Temperature Pulse Rate 126 H 125 H Respiratory 30 H 30 H 30 H Rate Blood Pressure 109/57 109/57 O2 Sat by Pulse 100 100 Oximetry 03/26/18 03/26/18 03/26/18 02:11 02:21 02:30 Temperature Pulse Rate 124 H 122 H 123 H Respiratory 28 H 34 H 31 H Rate Blood Pressure 116/58 103/55 107/58 O2 Sat by Pulse 100 100 100 Oximetry 03/26/18 03/26/18 03/26/18 02:41 02:51 03:00 Temperature Pulse Rate 124 H 123 H 123 H Respiratory 30 H 31 H 30 H Rate Blood Pressure 107/58 113/59 110/58 O2 Sat by Pulse 100 100 100 Oximetry 03/26/18 03/26/18 03/26/18 03:11 03:21 03:30 Temperature Pulse Rate 124 H 124 H 122 H Respiratory 30 H 30 H 30 H Rate Blood Pressure 110/58 111/57 106/57 O2 Sat by Pulse 100 100 100 Oximetry 03/26/18 03/26/18 03/26/18 03:41 03:51 04:00 Temperature 98.5 F Pulse Rate 120 H 121 H 119 H Respiratory 29 H 30 H 30 H Rate Blood Pressure 106/57 96/58 101/56 O2 Sat by Pulse 100 100 100 Oximetry 03/26/18 03/26/18 03/26/18 04:11 04:21 04:23 Temperature Pulse Rate 118 H 118 H 117 H Respiratory 30 H 23 Rate Blood Pressure 101/56 112/55 112/55 O2 Sat by Pulse 100 100 100 Oximetry 03/26/18 03/26/18 03/26/18 04:30 04:41 04:51 Temperature Pulse Rate 114 H 115 H 115 H Respiratory 30 H 30 H 31 H Rate Blood Pressure 103/57 103/57 103/61 O2 Sat by Pulse 100 100 100 Oximetry 03/26/18 03/26/18 03/26/18 05:01 05:11 05:21 Temperature Pulse Rate 110 H 112 H Respiratory 30 H 30 H Rate Blood Pressure 100/69 103/57 127/67 O2 Sat by Pulse 100 100 100 Oximetry 03/26/18 03/26/18 03/26/18 05:30 05:41 05:51 Temperature Pulse Rate 112 H 112 H 117 H Respiratory 30 H 30 H 30 H Rate Blood Pressure 123/65 123/65 118/64 O2 Sat by Pulse 100 100 100 Oximetry 03/26/18 03/26/18 03/26/18 06:00 06:11 06:21 Temperature Pulse Rate 113 H 112 H 112 H Respiratory 30 H 30 H 26 H Rate Blood Pressure 126/67 126/67 131/61 O2 Sat by Pulse 100 100 100 Oximetry 03/26/18 03/26/18 03/26/18 06:30 06:41 06:51 Temperature Pulse Rate 111 H 110 H 110 H Respiratory 30 H 30 H 26 H Rate Blood Pressure 120/66 126/67 117/66 O2 Sat by Pulse 100 100 100 Oximetry 03/26/18 03/26/18 03/26/18 07:00 07:10 07:20 Temperature Pulse Rate 109 H 107 H 106 H Respiratory 32 H 30 H 29 H Rate Blood Pressure 125/69 117/66 125/69 O2 Sat by Pulse 100 100 100 Oximetry 03/26/18 03/26/18 03/26/18 07:23 07:30 07:40 Temperature Pulse Rate 105 H 103 H Respiratory 30 H 24 30 H Rate Blood Pressure 135/73 135/73 O2 Sat by Pulse 100 100 Oximetry 03/26/18 03/26/18 03/26/18 07:51 08:00 08:01 Temperature 98.4 F Pulse Rate 102 H 101 H Respiratory 30 H 30 H 30 H Rate Blood Pressure 130/76 143/74 O2 Sat by Pulse 100 100 100 Oximetry 03/26/18 03/26/18 08:11 08:55 Temperature Pulse Rate 99 H 100 H Respiratory 30 H Rate Blood Pressure 135/73 169/78 O2 Sat by Pulse 100 100 Oximetry CBC and BMP: 03/27/18 03:35 03/27/18 03:35 ABG, PT/INR, D-dimer: ABG POC ABG pH 7.388 (7.35-7.45) 03/26/18 04:52 POC ABG pCO2 26.2 (35-45) L 03/26/18 04:52 POC ABG pO2 39 (80-105) L 03/26/18 04:52 POC ABG HCO3 15.8 03/26/18 04:52 POC ABG Total CO2 17 03/26/18 04:52 POC ABG O2 Sat 74 03/26/18 04:52 Abnormal lab findings: Abnormal Labs 03/25/18 03/25/18 03/25/18 13:48 14:00 14:00 WBC 15.3 H Hgb 10.5 L MCV 95 H MCH 27 L MCHC 28 L Lymph % (Auto) 8.5 L Seg Neutrophils % 86.4 H Seg Neutrophils # 13.2 H POC ABG pH POC ABG pCO2 POC ABG pO2 VBG pH Sodium 132 L Potassium 8.1 H* Chloride 87.8 L Carbon Dioxide 3 L* BUN 43 H Creatinine 2.6 H Glucose 1026 H* POC Glucose > 500 H Hemoglobin A1c Lactic Acid Calcium Phosphorus Total Creatine Kinase Troponin T Albumin Triglycerides Cholesterol LDL Cholesterol Direct 03/25/18 03/25/18 03/25/18 14:00 14:08 14:29 WBC Hgb MCV MCH MCHC Lymph % (Auto) Seg Neutrophils % Seg Neutrophils # POC ABG pH 6.952 L POC ABG pCO2 25.8 L POC ABG pO2 559 H VBG pH Sodium Potassium Chloride Carbon Dioxide BUN Creatinine Glucose POC Glucose Hemoglobin A1c Lactic Acid 10.10 H* Calcium Phosphorus 8.70 H Total Creatine Kinase Troponin T Albumin 2.6 L Triglycerides Cholesterol LDL Cholesterol Direct 03/25/18 03/25/18 03/25/18 14:41 15:40 15:40 WBC Hgb MCV MCH MCHC Lymph % (Auto) Seg Neutrophils % Seg Neutrophils # POC ABG pH POC ABG pCO2 POC ABG pO2 VBG pH 7.000 L* Sodium Potassium 6.7 H* Chloride 97.5 L Carbon Dioxide 5 L* BUN 43 H Creatinine 2.5 H Glucose 893 H* POC Glucose Hemoglobin A1c Lactic Acid Calcium 7.5 L Phosphorus 9.10 H Total Creatine Kinase Troponin T Albumin Triglycerides Cholesterol LDL Cholesterol Direct 03/25/18 03/25/18 03/25/18 18:09 18:12 18:55 WBC Hgb MCV MCH MCHC Lymph % (Auto) Seg Neutrophils % Seg Neutrophils # POC ABG pH POC ABG pCO2 POC ABG pO2 VBG pH Sodium 133 L Potassium 5.7 H Chloride 93.1 L Carbon Dioxide 10 L BUN 43 H Creatinine 2.5 H Glucose 786 H* POC Glucose Hemoglobin A1c 8.9 H Lactic Acid Calcium 7.8 L Phosphorus Total Creatine Kinase 226 H Troponin T 0.033 H Albumin Triglycerides 185 H Cholesterol 215 H LDL Cholesterol Direct 144 H 03/25/18 03/25/18 03/25/18 18:55 21:00 21:03 WBC Hgb MCV MCH MCHC Lymph % (Auto) Seg Neutrophils % Seg Neutrophils # POC ABG pH POC ABG pCO2 POC ABG pO2 VBG pH Sodium 136 L Potassium 6.7 H* Chloride Carbon Dioxide 7 L* BUN 45 H Creatinine 2.6 H Glucose 879 H* POC Glucose > 500 H Hemoglobin A1c Lactic Acid Calcium 7.8 L Phosphorus 9.20 H Total Creatine Kinase Troponin T Albumin Triglycerides Cholesterol LDL Cholesterol Direct 03/25/18 03/25/18 03/25/18 21:39 22:06 23:20 WBC Hgb MCV MCH MCHC Lymph % (Auto) Seg Neutrophils % Seg Neutrophils # POC ABG pH 7.272 L POC ABG pCO2 14.2 L POC ABG pO2 263 H VBG pH Sodium Potassium Chloride Carbon Dioxide 7 L* BUN 47 H Creatinine 2.9 H Glucose 702 H* POC Glucose > 500 H Hemoglobin A1c Lactic Acid Calcium 7.6 L Phosphorus Total Creatine Kinase Troponin T Albumin Triglycerides Cholesterol LDL Cholesterol Direct 03/25/18 03/26/18 03/26/18 23:20 00:17 01:08 WBC Hgb MCV MCH MCHC Lymph % (Auto) Seg Neutrophils % Seg Neutrophils # POC ABG pH POC ABG pCO2 POC ABG pO2 VBG pH Sodium Potassium Chloride Carbon Dioxide BUN Creatinine Glucose POC Glucose > 500 H 447 H 484 H Hemoglobin A1c Lactic Acid Calcium Phosphorus Total Creatine Kinase Troponin T Albumin Triglycerides Cholesterol LDL Cholesterol Direct 03/26/18 03/26/18 03/26/18 02:31 03:07 04:09 WBC Hgb MCV MCH MCHC Lymph % (Auto) Seg Neutrophils % Seg Neutrophils # POC ABG pH POC ABG pCO2 POC ABG pO2 VBG pH Sodium Potassium Chloride Carbon Dioxide BUN Creatinine Glucose POC Glucose > 500 H 467 H 361 H Hemoglobin A1c Lactic Acid Calcium Phosphorus Total Creatine Kinase Troponin T Albumin Triglycerides Cholesterol LDL Cholesterol Direct 03/26/18 03/26/18 03/26/18 04:25 04:52 05:24 WBC Hgb MCV MCH MCHC Lymph % (Auto) Seg Neutrophils % Seg Neutrophils # POC ABG pH POC ABG pCO2 26.2 L POC ABG pO2 39 L VBG pH Sodium 150 H D Potassium 3.4 L D Chloride 118.3 H Carbon Dioxide 16 L D BUN 45 H Creatinine 2.7 H Glucose 278 H POC Glucose 306 H Hemoglobin A1c Lactic Acid Calcium 7.7 L Phosphorus Total Creatine Kinase Troponin T Albumin Triglycerides Cholesterol LDL Cholesterol Direct 03/26/18 03/26/18 06:19 07:09 WBC Hgb MCV MCH MCHC Lymph % (Auto) Seg Neutrophils % Seg Neutrophils # POC ABG pH POC ABG pCO2 POC ABG pO2 VBG pH Sodium Potassium Chloride Carbon Dioxide BUN Creatinine Glucose POC Glucose 188 H 148 H Hemoglobin A1c Lactic Acid Calcium Phosphorus Total Creatine Kinase Troponin T Albumin Triglycerides Cholesterol LDL Cholesterol Direct Additional Studies: Radiological data: CT head: Evidence of chronic changes and gliosis Chest x-ray: No infiltrates or pneumothorax, ET tube in place Abdomen x-ray: No acute process NG tube in place
[2018-03-26] MEDS ORDERED: SODIUM BICARBONATE FEEDTUBE PRN ×2 (09:33→10:25)
[2018-03-26] MEDS ORDERED: SIMPLE SYRUP FEEDTUBE PRN ×4 (09:33→10:25)
[2018-03-26] MEDS ORDERED: PANCREAZE DR 10,500 UNIT FEEDTUBE PRN ×2 (09:33→10:25)
--- NOTE | 2018-03-26 09:41 | Progress Note ---
Assessment and Plan /DKA (diabetic ketoacidoses) BG was 1026, with pH of 6.9, AG 49 Placed on insulin drip since admission Patient remained intubated. Anion gap has now closed will DC insulin drip and placed on NPH every 12 hours along with SSI We'll also start on tube feeding, nutrition consult We'll check A1c /Acute respiratory failure Continue ventilator management and support DuoNeb scheduled, critical care following Weaned off vent as tolerated /Hyperkalemia Potassium was 8.1 on admission Corrected with IV insulin cont IV fluids, monitor BMP /BELKIS (acute kidney injury)secondary to severe dehydration BUN/creatinine on March 16 was 41/1.5, on admission was 43/2.5. IV fluids for now Nephrology consult requested monitor BUN/creatinine / SIRS, likely from DKA We will continue on IV Zosyn pending blood cultures. UA doesn't look like significant for UTI / Metabolic acidosis due to DKA and renal failure Severe Status post IV Sodium bicarbonate /Hypernatremia, we'll change IV fluid to half normal saline, continue to monitor BMP Free water with tube feeding /DVT prophylaxis Heparin subcutaneously 5000 units every 8 hours The high probability of a clinically significant, sudden or life threatening deterioration of the system(s) required my full and direct attention, intervention and personal management. The aggregate critical care time was 35 minutes. This time is in addition to time spent performing reported procedures but includes the following: [x] Data Review and interpretation [x] Patient assessment and monitoring of vital signs [x] Documentation [x] Medication orders and management Brief History: Patient with Hx of IDDM on insulin pump and noncompliant came to the ER for Nausea Vomiting and abdominal pain of 2 days duration. Patient left his insulin pump at work and was not taking any insulin for 2 days. in the ER his blood sugars noted to be about 1000 and Patient was obtunded and lethargic--- hence intubated in the ER for protection of airway. Placed on insulin drip and admitted to ICU. Radiological data: CT head: Evidence of chronic changes and gliosis Chest x-ray: No infiltrates or pneumothorax, ET tube in place Abdomen x-ray: No acute process NG tube in place Hospitalist Physical exam: GENERAL: -[place] male lying on bed appeared to be in no discomfort. Intubated HEENT: Normocephalic. Atraumatic. No conjunctival congestion or icterus. Patient has moist mucous membranes. NECK: Supple. Trachea midline. ET tube in place CHEST/LUNGS: Clear to auscultated bilaterally, mechanically ventilated HEART/CARDIOVASCULAR: Regular in rate and rhythm. S1 and S2 positive. ABDOMEN: Abdomen is soft, nontender. Patient has normal bowel sounds. SKIN: There is no rash. Warm and dry. NEURO: Intubated and sedated MUSCULOSKELETAL: No joint effusion or tenderness. EXTRIMITY: No edema, no cyanosis or clubbing. PSYCH: Unable to assess The Subjective Date of service: 03/26/18 Interval history: Patient seen and examined. Medical records and medication list reviewed. No acute event overnight noted by the RN. Patient remained intubated Discussed plan of care at bedside with dispatch associate Objective - Constitutional Vitals: Vital Signs - 12hr 03/25/18 03/25/18 03/25/18 21:54 22:00 22:11 Temperature Pulse Rate 140 H 142 H 137 H Respiratory 27 H 26 H 27 H Rate Blood Pressure 123/59 123/59 O2 Sat by Pulse 100 100 100 Oximetry 03/25/18 03/25/18 03/25/18 22:21 22:30 22:41 Temperature Pulse Rate 137 H 135 H 137 H Respiratory 28 H 27 H 25 H Rate Blood Pressure 126/63 130/61 130/61 O2 Sat by Pulse 100 100 100 Oximetry 03/25/18 03/25/18 03/25/18 22:51 23:00 23:11 Temperature Pulse Rate 134 H 133 H 135 H Respiratory 24 26 H 27 H Rate Blood Pressure 122/56 112/59 112/59 O2 Sat by Pulse 100 100 100 Oximetry 03/25/18 03/25/18 03/25/18 23:21 23:30 23:41 Temperature Pulse Rate 133 H 131 H 129 H Respiratory 24 24 24 Rate Blood Pressure 108/60 107/64 107/64 O2 Sat by Pulse 100 100 100 Oximetry 03/25/18 03/25/18 03/26/18 23:46 23:50 00:00 Temperature 98.8 F Pulse Rate 129 H 129 H Respiratory 25 H 25 H 33 H Rate Blood Pressure 112/59 O2 Sat by Pulse 100 100 100 Oximetry 03/26/18 03/26/18 03/26/18 00:02 00:11 00:21 Temperature Pulse Rate 130 H 129 H 130 H Respiratory 25 H 23 25 H Rate Blood Pressure 117/63 O2 Sat by Pulse 100 100 100 Oximetry 03/26/18 03/26/18 03/26/18 00:22 00:30 00:41 Temperature Pulse Rate 131 H 131 H 131 H Respiratory 24 25 H Rate Blood Pressure 117/63 109/64 109/64 O2 Sat by Pulse 100 100 100 Oximetry 03/26/18 03/26/18 03/26/18 00:51 01:00 01:11 Temperature Pulse Rate 129 H 130 H 129 H Respiratory 24 24 22 Rate Blood Pressure 112/60 116/63 116/63 O2 Sat by Pulse 100 100 100 Oximetry 03/26/18 03/26/18 03/26/18 01:21 01:30 01:41 Temperature Pulse Rate 132 H 127 H 126 H Respiratory 26 H 26 H 29 H Rate Blood Pressure 111/62 105/59 105/59 O2 Sat by Pulse 100 100 100 Oximetry 03/26/18 03/26/18 03/26/18 01:51 01:57 02:00 Temperature Pulse Rate 126 H 125 H Respiratory 30 H 30 H 30 H Rate Blood Pressure 109/57 109/57 O2 Sat by Pulse 100 100 Oximetry 03/26/18 03/26/18 03/26/18 02:11 02:21 02:30 Temperature Pulse Rate 124 H 122 H 123 H Respiratory 28 H 34 H 31 H Rate Blood Pressure 116/58 103/55 107/58 O2 Sat by Pulse 100 100 100 Oximetry 03/26/18 03/26/18 03/26/18 02:41 02:51 03:00 Temperature Pulse Rate 124 H 123 H 123 H Respiratory 30 H 31 H 30 H Rate Blood Pressure 107/58 113/59 110/58 O2 Sat by Pulse 100 100 100 Oximetry 03/26/18 03/26/18 03/26/18 03:11 03:21 03:30 Temperature Pulse Rate 124 H 124 H 122 H Respiratory 30 H 30 H 30 H Rate Blood Pressure 110/58 111/57 106/57 O2 Sat by Pulse 100 100 100 Oximetry 03/26/18 03/26/18 03/26/18 03:41 03:51 04:00 Temperature 98.5 F Pulse Rate 120 H 121 H 119 H Respiratory 29 H 30 H 30 H Rate Blood Pressure 106/57 96/58 101/56 O2 Sat by Pulse 100 100 100 Oximetry 03/26/18 03/26/18 03/26/18 04:11 04:21 04:23 Temperature Pulse Rate 118 H 118 H 117 H Respiratory 30 H 23 Rate Blood Pressure 101/56 112/55 112/55 O2 Sat by Pulse 100 100 100 Oximetry 03/26/18 03/26/18 03/26/18 04:30 04:41 04:51 Temperature Pulse Rate 114 H 115 H 115 H Respiratory 30 H 30 H 31 H Rate Blood Pressure 103/57 103/57 103/61 O2 Sat by Pulse 100 100 100 Oximetry 03/26/18 03/26/18 03/26/18 05:01 05:11 05:21 Temperature Pulse Rate 110 H 112 H Respiratory 30 H 30 H Rate Blood Pressure 100/69 103/57 127/67 O2 Sat by Pulse 100 100 100 Oximetry 03/26/18 03/26/18 03/26/18 05:30 05:41 05:51 Temperature Pulse Rate 112 H 112 H 117 H Respiratory 30 H 30 H 30 H Rate Blood Pressure 123/65 123/65 118/64 O2 Sat by Pulse 100 100 100 Oximetry 03/26/18 03/26/18 03/26/18 06:00 06:11 06:21 Temperature Pulse Rate 113 H 112 H 112 H Respiratory 30 H 30 H 26 H Rate Blood Pressure 126/67 126/67 131/61 O2 Sat by Pulse 100 100 100 Oximetry 03/26/18 03/26/18 03/26/18 06:30 06:41 06:51 Temperature Pulse Rate 111 H 110 H 110 H Respiratory 30 H 30 H 26 H Rate Blood Pressure 120/66 126/67 117/66 O2 Sat by Pulse 100 100 100 Oximetry 03/26/18 03/26/18 03/26/18 07:00 07:10 07:20 Temperature Pulse Rate 109 H 107 H 106 H Respiratory 32 H 30 H 29 H Rate Blood Pressure 125/69 117/66 125/69 O2 Sat by Pulse 100 100 100 Oximetry 03/26/18 03/26/18 03/26/18 07:23 07:30 07:40 Temperature Pulse Rate 105 H 103 H Respiratory 30 H 24 30 H Rate Blood Pressure 135/73 135/73 O2 Sat by Pulse 100 100 Oximetry 03/26/18 03/26/18 03/26/18 07:51 08:00 08:01 Temperature 98.4 F Pulse Rate 102 H 101 H Respiratory 30 H 30 H 30 H Rate Blood Pressure 130/76 143/74 O2 Sat by Pulse 100 100 100 Oximetry 03/26/18 03/26/18 08:11 08:55 Temperature Pulse Rate 99 H 100 H Respiratory 30 H Rate Blood Pressure 135/73 169/78 O2 Sat by Pulse 100 100 Oximetry - Labs CBC & Chem 7: 03/25/18 14:00 03/26/18 19:27 Labs: Abnormal lab results 03/25/18 03/25/18 03/25/18 Range/Units 13:48 14:00 14:00 WBC 15.3 H (4.5-11.0) K/mm3 Hgb 10.5 L (11.8-15.2) gm/dl MCV 95 H (84-94) fl MCH 27 L (28-32) pg MCHC 28 L (32-34) % Lymph % (Auto) 8.5 L (13.4-35.0) % Seg Neutrophils % 86.4 H (40.0-70.0) % Seg Neutrophils # 13.2 H (1.8-7.7) K/mm3 POC ABG pH (7.35-7.45) POC ABG pCO2 (35-45) POC ABG pO2 (80-105) VBG pH (7.320-7.420) Sodium 132 L (137-145) mmol/L Potassium 8.1 H* (3.6-5.0) mmol/L Chloride 87.8 L (98-107) mmol/L Carbon Dioxide 3 L* (22-30) mmol/L BUN 43 H (9-20) mg/dL Creatinine 2.6 H (0.8-1.5) mg/dL Glucose 1026 H* (75-100) mg/dL POC Glucose > 500 H (70-105) Hemoglobin A1c (4-6) % Lactic Acid (0.7-2.0) mmol/L Calcium (8.4-10.2) mg/dL Phosphorus (2.5-4.5) mg/dL Total Creatine Kinase (55-170) units/L Troponin T (0.00-0.029) ng/mL Albumin (3.9-5) g/dL Triglycerides (2-149) mg/dL Cholesterol (50-199) mg/dL LDL Cholesterol Direct (50-130) mg/dL 03/25/18 03/25/18 03/25/18 Range/Units 14:00 14:08 14:29 WBC (4.5-11.0) K/mm3 Hgb (11.8-15.2) gm/dl MCV (84-94) fl MCH (28-32) pg MCHC (32-34) % Lymph % (Auto) (13.4-35.0) % Seg Neutrophils % (40.0-70.0) % Seg Neutrophils # (1.8-7.7) K/mm3 POC ABG pH 6.952 L (7.35-7.45) POC ABG pCO2 25.8 L (35-45) POC ABG pO2 559 H (80-105) VBG pH (7.320-7.420) Sodium (137-145) mmol/L Potassium (3.6-5.0) mmol/L Chloride (98-107) mmol/L Carbon Dioxide (22-30) mmol/L BUN (9-20) mg/dL Creatinine (0.8-1.5) mg/dL Glucose (75-100) mg/dL POC Glucose (70-105) Hemoglobin A1c (4-6) % Lactic Acid 10.10 H* (0.7-2.0) mmol/L Calcium (8.4-10.2) mg/dL Phosphorus 8.70 H (2.5-4.5) mg/dL Total Creatine Kinase (55-170) units/L Troponin T (0.00-0.029) ng/mL Albumin 2.6 L (3.9-5) g/dL Triglycerides (2-149) mg/dL Cholesterol (50-199) mg/dL LDL Cholesterol Direct (50-130) mg/dL 03/25/18 03/25/18 03/25/18 Range/Units 14:41 15:40 15:40 WBC (4.5-11.0) K/mm3 Hgb (11.8-15.2) gm/dl MCV (84-94) fl MCH (28-32) pg MCHC (32-34) % Lymph % (Auto) (13.4-35.0) % Seg Neutrophils % (40.0-70.0) % Seg Neutrophils # (1.8-7.7) K/mm3 POC ABG pH (7.35-7.45) POC ABG pCO2 (35-45) POC ABG pO2 (80-105) VBG pH 7.000 L* (7.320-7.420) Sodium (137-145) mmol/L Potassium 6.7 H* (3.6-5.0) mmol/L Chloride 97.5 L (98-107) mmol/L Carbon Dioxide 5 L* (22-30) mmol/L BUN 43 H (9-20) mg/dL Creatinine 2.5 H (0.8-1.5) mg/dL Glucose 893 H* (75-100) mg/dL POC Glucose (70-105) Hemoglobin A1c (4-6) % Lactic Acid (0.7-2.0) mmol/L Calcium 7.5 L (8.4-10.2) mg/dL Phosphorus 9.10 H (2.5-4.5) mg/dL Total Creatine Kinase (55-170) units/L Troponin T (0.00-0.029) ng/mL Albumin (3.9-5) g/dL Triglycerides (2-149) mg/dL Cholesterol (50-199) mg/dL LDL Cholesterol Direct (50-130) mg/dL 03/25/18 03/25/18 03/25/18 Range/Units 18:09 18:12 18:55 WBC (4.5-11.0) K/mm3 Hgb (11.8-15.2) gm/dl MCV (84-94) fl MCH (28-32) pg MCHC (32-34) % Lymph % (Auto) (13.4-35.0) % Seg Neutrophils % (40.0-70.0) % Seg Neutrophils # (1.8-7.7) K/mm3 POC ABG pH (7.35-7.45) POC ABG pCO2 (35-45) POC ABG pO2 (80-105) VBG pH (7.320-7.420) Sodium 133 L (137-145) mmol/L Potassium 5.7 H (3.6-5.0) mmol/L Chloride 93.1 L (98-107) mmol/L Carbon Dioxide 10 L (22-30) mmol/L BUN 43 H (9-20) mg/dL Creatinine 2.5 H (0.8-1.5) mg/dL Glucose 786 H* (75-100) mg/dL POC Glucose (70-105) Hemoglobin A1c 8.9 H (4-6) % Lactic Acid (0.7-2.0) mmol/L Calcium 7.8 L (8.4-10.2) mg/dL Phosphorus (2.5-4.5) mg/dL Total Creatine Kinase 226 H (55-170) units/L Troponin T 0.033 H (0.00-0.029) ng/mL Albumin (3.9-5) g/dL Triglycerides 185 H (2-149) mg/dL Cholesterol 215 H (50-199) mg/dL LDL Cholesterol Direct 144 H (50-130) mg/dL 03/25/18 03/25/18 03/25/18 Range/Units 18:55 21:00 21:03 WBC (4.5-11.0) K/mm3 Hgb (11.8-15.2) gm/dl MCV (84-94) fl MCH (28-32) pg MCHC (32-34) % Lymph % (Auto) (13.4-35.0) % Seg Neutrophils % (40.0-70.0) % Seg Neutrophils # (1.8-7.7) K/mm3 POC ABG pH (7.35-7.45) POC ABG pCO2 (35-45) POC ABG pO2 (80-105) VBG pH (7.320-7.420) Sodium 136 L (137-145) mmol/L Potassium 6.7 H* (3.6-5.0) mmol/L Chloride (98-107) mmol/L Carbon Dioxide 7 L* (22-30) mmol/L BUN 45 H (9-20) mg/dL Creatinine 2.6 H (0.8-1.5) mg/dL Glucose 879 H* (75-100) mg/dL POC Glucose > 500 H (70-105) Hemoglobin A1c (4-6) % Lactic Acid (0.7-2.0) mmol/L Calcium 7.8 L (8.4-10.2) mg/dL Phosphorus 9.20 H (2.5-4.5) mg/dL Total Creatine Kinase (55-170) units/L Troponin T (0.00-0.029) ng/mL Albumin (3.9-5) g/dL Triglycerides (2-149) mg/dL Cholesterol (50-199) mg/dL LDL Cholesterol Direct (50-130) mg/dL 03/25/18 03/25/18 03/25/18 Range/Units 21:39 22:06 23:20 WBC (4.5-11.0) K/mm3 Hgb (11.8-15.2) gm/dl MCV (84-94) fl MCH (28-32) pg MCHC (32-34) % Lymph % (Auto) (13.4-35.0) % Seg Neutrophils % (40.0-70.0) % Seg Neutrophils # (1.8-7.7) K/mm3 POC ABG pH 7.272 L (7.35-7.45) POC ABG pCO2 14.2 L (35-45) POC ABG pO2 263 H (80-105) VBG pH (7.320-7.420) Sodium (137-145) mmol/L Potassium (3.6-5.0) mmol/L Chloride (98-107) mmol/L Carbon Dioxide 7 L* (22-30) mmol/L BUN 47 H (9-20) mg/dL Creatinine 2.9 H (0.8-1.5) mg/dL Glucose 702 H* (75-100) mg/dL POC Glucose > 500 H (70-105) Hemoglobin A1c (4-6) % Lactic Acid (0.7-2.0) mmol/L Calcium 7.6 L (8.4-10.2) mg/dL Phosphorus (2.5-4.5) mg/dL Total Creatine Kinase (55-170) units/L Troponin T (0.00-0.029) ng/mL Albumin (3.9-5) g/dL Triglycerides (2-149) mg/dL Cholesterol (50-199) mg/dL LDL Cholesterol Direct (50-130) mg/dL 03/25/18 03/26/18 03/26/18 Range/Units 23:20 00:17 01:08 WBC (4.5-11.0) K/mm3 Hgb (11.8-15.2) gm/dl MCV (84-94) fl MCH (28-32) pg MCHC (32-34) % Lymph % (Auto) (13.4-35.0) % Seg Neutrophils % (40.0-70.0) % Seg Neutrophils # (1.8-7.7) K/mm3 POC ABG pH (7.35-7.45) POC ABG pCO2 (35-45) POC ABG pO2 (80-105) VBG pH (7.320-7.420) Sodium (137-145) mmol/L Potassium (3.6-5.0) mmol/L Chloride (98-107) mmol/L Carbon Dioxide (22-30) mmol/L BUN (9-20) mg/dL Creatinine (0.8-1.5) mg/dL Glucose (75-100) mg/dL POC Glucose > 500 H 447 H 484 H (70-105) Hemoglobin A1c (4-6) % Lactic Acid (0.7-2.0) mmol/L Calcium (8.4-10.2) mg/dL Phosphorus (2.5-4.5) mg/dL Total Creatine Kinase (55-170) units/L Troponin T (0.00-0.029) ng/mL Albumin (3.9-5) g/dL Triglycerides (2-149) mg/dL Cholesterol (50-199) mg/dL LDL Cholesterol Direct (50-130) mg/dL 03/26/18 03/26/18 03/26/18 Range/Units 02:31 03:07 04:09 WBC (4.5-11.0) K/mm3 Hgb (11.8-15.2) gm/dl MCV (84-94) fl MCH (28-32) pg MCHC (32-34) % Lymph % (Auto) (13.4-35.0) % Seg Neutrophils % (40.0-70.0) % Seg Neutrophils # (1.8-7.7) K/mm3 POC ABG pH (7.35-7.45) POC ABG pCO2 (35-45) POC ABG pO2 (80-105) VBG pH (7.320-7.420) Sodium (137-145) mmol/L Potassium (3.6-5.0) mmol/L Chloride (98-107) mmol/L Carbon Dioxide (22-30) mmol/L BUN (9-20) mg/dL Creatinine (0.8-1.5) mg/dL Glucose (75-100) mg/dL POC Glucose > 500 H 467 H 361 H (70-105) Hemoglobin A1c (4-6) % Lactic Acid (0.7-2.0) mmol/L Calcium (8.4-10.2) mg/dL Phosphorus (2.5-4.5) mg/dL Total Creatine Kinase (55-170) units/L Troponin T (0.00-0.029) ng/mL Albumin (3.9-5) g/dL Triglycerides (2-149) mg/dL Cholesterol (50-199) mg/dL LDL Cholesterol Direct (50-130) mg/dL 03/26/18 03/26/18 03/26/18 Range/Units 04:25 04:52 05:24 WBC (4.5-11.0) K/mm3 Hgb (11.8-15.2) gm/dl MCV (84-94) fl MCH (28-32) pg MCHC (32-34) % Lymph % (Auto) (13.4-35.0) % Seg Neutrophils % (40.0-70.0) % Seg Neutrophils # (1.8-7.7) K/mm3 POC ABG pH (7.35-7.45) POC ABG pCO2 26.2 L (35-45) POC ABG pO2 39 L (80-105) VBG pH (7.320-7.420) Sodium 150 H D (137-145) mmol/L Potassium 3.4 L D (3.6-5.0) mmol/L Chloride 118.3 H (98-107) mmol/L Carbon Dioxide 16 L D (22-30) mmol/L BUN 45 H (9-20) mg/dL Creatinine 2.7 H (0.8-1.5) mg/dL Glucose 278 H (75-100) mg/dL POC Glucose 306 H (70-105) Hemoglobin A1c (4-6) % Lactic Acid (0.7-2.0) mmol/L Calcium 7.7 L (8.4-10.2) mg/dL Phosphorus (2.5-4.5) mg/dL Total Creatine Kinase (55-170) units/L Troponin T (0.00-0.029) ng/mL Albumin (3.9-5) g/dL Triglycerides (2-149) mg/dL Cholesterol (50-199) mg/dL LDL Cholesterol Direct (50-130) mg/dL 03/26/18 03/26/18 03/26/18 Range/Units 06:19 07:09 09:12 WBC (4.5-11.0) K/mm3 Hgb (11.8-15.2) gm/dl MCV (84-94) fl MCH (28-32) pg MCHC (32-34) % Lymph % (Auto) (13.4-35.0) % Seg Neutrophils % (40.0-70.0) % Seg Neutrophils # (1.8-7.7) K/mm3 POC ABG pH 7.530 H (7.35-7.45) POC ABG pCO2 22.0 L (35-45) POC ABG pO2 147 H (80-105) VBG pH (7.320-7.420) Sodium (137-145) mmol/L Potassium (3.6-5.0) mmol/L Chloride (98-107) mmol/L Carbon Dioxide (22-30) mmol/L BUN (9-20) mg/dL Creatinine (0.8-1.5) mg/dL Glucose (75-100) mg/dL POC Glucose 188 H 148 H (70-105) Hemoglobin A1c (4-6) % Lactic Acid (0.7-2.0) mmol/L Calcium (8.4-10.2) mg/dL Phosphorus (2.5-4.5) mg/dL Total Creatine Kinase (55-170) units/L Troponin T (0.00-0.029) ng/mL Albumin (3.9-5) g/dL Triglycerides (2-149) mg/dL Cholesterol (50-199) mg/dL LDL Cholesterol Direct (50-130) mg/dL
[2018-03-26] MEDS ORDERED: COREG PO SCH (10:00)
--- NOTE | 2018-03-26 10:34 | Consultation ---
History of Present Illness - Reason for Consult Consult date: 03/26/18 acute renal failure, hyperkalemia - History of Present Illness patient with h/o DM who was admitted yesterday for DKA, he was brought by EMS after he was found to down in his home. in the ED he was found to have severe hyperglycemia, hyperkalemia, and metabolic acidosis, he was intubated for airway protection. renal consult was requested for elevated K and kidney failure. currently he is intubated and sedated. his brother at bedside. Past History Past Medical History: diabetes, hypertension Medications and Allergies Allergies Allergy/AdvReac Type Severity Reaction Status Date / Time No Known Allergies Allergy Unverified 01/12/18 10:02 Home Medications Medication Instructions Recorded Confirmed Last Taken Type Aspirin 81 mg PO DAILY 01/13/18 01/13/18 Unknown History AtorvaSTATin [Lipitor] 40 mg PO QHS 01/13/18 01/13/18 Unknown History Carvedilol [Coreg] 6.25 mg PO BID 01/13/18 01/13/18 Unknown History FLUoxetine [PROzac] 10 mg PO QDAY 01/13/18 01/13/18 Unknown History Fluconazole [Diflucan] 200 mg PO 1XW 01/13/18 01/13/18 Unknown History Lisinopril/Hydrochlorothiazide 1 tab PO QDAY 01/13/18 01/13/18 Unknown History [Zestoretic 20-12.5 mg] Terazosin [Hytrin] 5 mg PO QHS 01/13/18 01/13/18 Unknown History Active Meds: Active Medications Lipase/Protease/Amylase (Holli Metz 10,500 Unit) 1 each FEEDTUBE PRN PRN PRN Reason: For Clogged Feeding Tube Lipase/Protease/Amylase (Holli Metz 10,500 Unit) 1 each FEEDTUBE PRN PRN PRN Reason: For Clogged Feeding Tube Aspirin (Aspirin) 300 mg FL ONCE ONE Stop: 03/26/18 22:01 Aspirin (Baby Aspirin) 81 mg PO DAILY [facility] Atorvastatin Calcium (Lipitor) 40 mg PO QHS [facility] Carvedilol (Coreg) 6.25 mg PO BID [facility] Dextrose (D50w (25gm) Syringe) 0 ml IV ONCE PRN PRN Reason: Hypoglycemia Famotidine (Pepcid) 20 mg IV DAILY [facility] Fluoxetine HCl (Prozac) 10 mg PO QDAY [facility] Heparin Sodium (Porcine) (Heparin) 5,000 unit SUB-Q Q8HR [facility] Hydrophilic Ointment (Vaseline Lip Therapy) 1 applic TP Q2HR PRN PRN Reason: Dry Lips Propofol (Diprivan 10 Mg/Ml) 1,000 mg in 100 mls @ 2.585 mls/hr IV TITR [facility]; Protocol Last Titration: 03/26/18 09:10 Dose: 0 mcg/kg/min, 0 mls/hr Potassium Chloride (Kcl 10meq/100ml) 10 meq in 100 mls @ 100 mls/hr IV Q1H [facility] Stop: 03/26/18 12:59 Sodium Chloride (Nacl 0.45% 1000 Ml) 1,000 mls @ 125 mls/hr IV DIRECT [facility] Insulin Human NPH (Humulin N) 10 unit SUB-Q BIDDIAB [facility] Insulin Human Regular (Humulin R) 0 units SUB-Q Q4HR [facility]; Protocol Multi-Ingred Cream/Lotion/Oil/Oint (Artificial Tears Ophth Oint) 1 applic OU Q4HR PRN PRN Reason: Dry Eye(s) Prazosin HCl (Minipress) 1 mg PO Q12HR [facility] Simple Syrup (Simple Syrup) 15 ml FEEDTUBE PRN PRN PRN Reason: Hypoglycemia Simple Syrup (Simple Syrup) 30 ml FEEDTUBE PRN PRN PRN Reason: Hypoglycemia Simple Syrup (Simple Syrup) 15 ml FEEDTUBE PRN PRN PRN Reason: Hypoglycemia Simple Syrup (Simple Syrup) 30 ml FEEDTUBE PRN PRN PRN Reason: Hypoglycemia Sodium Bicarbonate (Sodium Bicarbonate) 325 mg FEEDTUBE PRN PRN PRN Reason: For Clogged Feeding Tube Sodium Bicarbonate (Sodium Bicarbonate) 325 mg FEEDTUBE PRN PRN PRN Reason: For Clogged Feeding Tube Sodium Chloride (Nacl 0.9% 500 Ml) 1 ml IV DIRECT [facility] Sodium Chloride (Sodium Chloride Flush Syringe 10 Ml) 10 ml IV BID [facility] Last Admin: 03/26/18 00:42 Dose: 10 ml Sodium Chloride (Sodium Chloride Flush Syringe 10 Ml) 10 ml IV PRN PRN PRN Reason: LINE FLUSH Review of Systems ROS unobtainable: due to mental status Exam - Vital Signs Vital signs: Vital Signs Pulse Resp 144 H 46 H 03/25/18 13:41 05/28/18 13:41 - General Appearance General appearance: sedated on ventilator, intubated EENT: ATNC, PERRL, mucous membranes dry Neck: Present: neck supple Respiratory: Clear to Ascultation Heart: tachycardia, S1S2 Gastrointestinal: Present: normoactive bowel sounds. Absent: tenderness, distended Integumentary: no rash, warm and dry Neurologic: other (intubated and sedated) Musculoskeletal: Present: other (no edema in BLE) Psychiatric: other (sedated) Results - Lab Results 03/25/18 14:00 03/26/18 04:25 Most recent lab results Calcium 7.7 mg/dL (8.4-10.2) L 03/26/18 04:25 Phosphorus 9.20 mg/dL (2.5-4.5) H 03/25/18 18:55 Magnesium 2.20 mg/dL (1.7-2.3) 03/25/18 18:55 Assessment and Plan Acute renal failure - unknown baseline, possible CKD due to DM and HTN, worsening renal failure secondary to prerenal azotemia vs/ ischemic ATN from volume depletion - mild improvement in Cr since admission, good UOP - no indication for [employer] - renally dose meds - strict I&O - daily weight Acute resp failure - on the vent, per ICU team Hyperkalemia - resolved with insulin gtt DKA - improving - on DKA protocol Hypernatremia - started on 1 NS HTN - will adjust home regimen as needed
[2018-03-26] MEDS: PEPCID IV SCH (11:22)
[2018-03-26 11:23] LABS: Calcium 7.5 mg/dL (8.4-10.2)
[2018-03-26] MEDS: HEPARIN SUB-Q SCH ×3 (11:47→21:44)
[2018-03-26] MEDS: PROzac PO SCH (11:51)
[2018-03-26] MEDS: BABY ASPIRIN PO SCH (11:51)
[2018-03-26] MEDS: SODIUM CHLORIDE FLUSH SYRINGE 10 ML IV PRN ×2 (11:52→13:47)
[2018-03-26] MEDS: NACL 0.45% 1000 ML 1,000 ML IV SCH ×2 (11:53→20:02)
[2018-03-26] MEDS: MINIPRESS PO SCH ×2 (13:46→23:50)
[2018-03-26] MEDS: HumuLIN R SUB-Q SCH ×5 (13:48→21:43)
[2018-03-26] MEDS ORDERED: KCL 10MEQ/100ML 10 MEQ/100 ML BAG IV SCH (15:10)
[2018-03-26 15:30] LABS: Calcium 7.3 mg/dL (8.4-10.2)
[2018-03-26] MEDS ORDERED: LOPRESSOR IV ONE ×2 (17:44→19:45)
[2018-03-26 19:56] LABS: Calcium 7.1 mg/dL (8.4-10.2)
[2018-03-26] MEDS: SUBLIMAZE IV PRN (20:50)
[2018-03-26] MEDS: COREG PO SCH (21:45)
[2018-03-26] MEDS ORDERED: ASPIRIN PR ONE (22:00)
[2018-03-27] MEDS: HumuLIN R SUB-Q SCH ×6 (02:09→21:45)
[2018-03-27] MEDS: SUBLIMAZE IV PRN ×4 (04:05→21:03)
[2018-03-27 04:18] LABS: Basophils % (Auto) 0.3 % (0.0-1.8); Eosinophils % (Auto) 0.1 % (0.0-4.3); Hematocrit 25.3 % (35.5-45.6); Hemoglobin 8.3 gm/dl (11.8-15.2); Lymphocytes # (Auto) 1.8 K/mm3 (1.2-5.4); Lymphocytes % (Auto) 14.5 % (13.4-35.0); Mean Corpuscular HGB Conc 33 % (32-34); Mean Corpuscular Hemoglobin 27 pg (28-32); Mean Corpuscular Volume 83 fl (84-94); Monocytes # (Auto) 1.1 K/mm3 (0.0-0.8); Monocytes % (Auto) 8.6 % (0.0-7.3); Platelet Count 172 K/mm3 (140-440); Red Blood Count 3.05 M/mm3 (3.65-5.03); Red Cell Distribution Width 13.3 % (13.2-15.2)
--- NOTE | 2018-03-27 04:34 | XRay Report ---
FINAL REPORT EXAM: XR CHEST 1V AP HISTORY: follow up respiratory failure TECHNIQUE: A portable upright view the chest was obtained and compared the study of 03/26/2018. FINDINGS: The tip of the ET tube is 3 cm above the marleni. The NG tube is in good position in the stomach. The right-sided transjugular venous catheter is in good position in the distal superior vena cava. The heart size is normal. The lungs are not congested. There are no localized infiltrates or effusions. The skeletal structures are well-maintained. IMPRESSION: Satisfactory position of all tubes and lines. No acute infiltrates or congestion.
[2018-03-27 04:35] LABS: Albumin 2.1 g/dL (3.9-5); Calcium 7.1 mg/dL (8.4-10.2)
[2018-03-27] MEDS: HEPARIN SUB-Q SCH ×3 (05:29→21:29)
[2018-03-27] MEDS: NACL 0.45% 1000 ML 1,000 ML IV SCH ×3 (05:31→20:17)
[2018-03-27] MEDS: PEPCID IV SCH (09:45)
[2018-03-27] MEDS: BABY ASPIRIN PO SCH (09:46)
[2018-03-27] MEDS: PROzac PO SCH (09:46)
[2018-03-27] MEDS: COREG PO SCH ×2 (09:46→21:28)
[2018-03-27] MEDS ORDERED: SUBLIMAZE IV ONE (10:01)
[2018-03-27] MEDS: CATAPRES-TTS PATCH TD SCH (10:09)
[2018-03-27] MEDS: MINIPRESS PO SCH ×2 (10:10→21:29)
[2018-03-27] MEDS: SODIUM CHLORIDE FLUSH SYRINGE 10 ML IV SCH ×2 (10:11→21:30)
--- NOTE | 2018-03-27 10:25 | Progress Note ---
Assessment and Plan /DKA (diabetic ketoacidoses) BG was 1026, with pH of 6.9, AG 49 Placed on insulin drip since admission Patient remained intubated. Anion gap has now closed now off insulin drip and placed on NPH every 12 hours along with SSI cont on tube feeding, A1c 8.9 /Acute respiratory failure Continue ventilator management and support DuoNeb scheduled, critical care following Weaned off vent as tolerated, plan for extubation if tolerates /Hyperkalemia Potassium was 8.1 on admission Corrected with IV insulin cont IV fluids, monitor BMP /BELKIS (acute kidney injury)secondary to severe dehydration BUN/creatinine on March 16 was 41/1.5, on admission was 43/2.5. IV fluids for now Nephrology consult requested monitor BUN/creatinine / SIRS, likely from DKA We will continue on IV Zosyn pending blood cultures. UA doesn't look like significant for UTI / Metabolic acidosis due to DKA and renal failure Severe Status post IV Sodium bicarbonate /Hypernatremia, we'll change IV fluid to half normal saline, continue to monitor BMP Free water with tube feeding /Hypertension, uncontrolled Placed on Coreg 12.5 twice a day, will also place on clonidine patch for now /DVT prophylaxis Heparin subcutaneously 5000 units every 8 hours The high probability of a clinically significant, sudden or life threatening deterioration of the system(s) required my full and direct attention, intervention and personal management. The aggregate critical care time was 35 minutes. This time is in addition to time spent performing reported procedures but includes the following: [x] Data Review and interpretation [x] Patient assessment and monitoring of vital signs [x] Documentation [x] Medication orders and management Brief History: Patient with Hx of IDDM on insulin pump and noncompliant came to the ER for Nausea Vomiting and abdominal pain of 2 days duration. Patient left his insulin pump at work and was not taking any insulin for 2 days. in the ER his blood sugars noted to be about 1000 and Patient was obtunded and lethargic--- hence intubated in the ER for protection of airway. Placed on insulin drip and admitted to ICU. Radiological data: CT head: Evidence of chronic changes and gliosis Chest x-ray: No infiltrates or pneumothorax, ET tube in place Abdomen x-ray: No acute process NG tube in place Hospitalist Physical exam: GENERAL: -[place] male lying on bed appeared to be in no discomfort. Intubated HEENT: Normocephalic. Atraumatic. No conjunctival congestion or icterus. Patient has moist mucous membranes. NECK: Supple. Trachea midline. ET tube in place CHEST/LUNGS: Clear to auscultated bilaterally, mechanically ventilated HEART/CARDIOVASCULAR: Regular in rate and rhythm. S1 and S2 positive. ABDOMEN: Abdomen is soft, nontender. Patient has normal bowel sounds. SKIN: There is no rash. Warm and dry. NEURO: Intubated and sedated MUSCULOSKELETAL: No joint effusion or tenderness. EXTRIMITY: No edema, no cyanosis or clubbing. PSYCH: Unable to assess The Subjective Date of service: 03/27/18 Principal diagnosis: Acute hypoxic respiratory failure, DKA, BELKIS, Acute encephalopathy Interval history: Patient seen and examined. Medical records and medication list reviewed. No acute event overnight noted by the RN. Patient remained intubated Discussed plan of care at bedside with agricultural produce commission agent Objective - Constitutional Vitals: Vital Signs - 12hr 03/26/18 03/26/18 03/26/18 22:31 22:41 22:45 Temperature Pulse Rate 100 H 99 H 99 H Respiratory 18 18 18 Rate Blood Pressure 160/92 160/92 160/92 O2 Sat by Pulse 100 100 100 Oximetry 03/26/18 03/26/18 03/26/18 22:51 23:00 23:11 Temperature Pulse Rate 99 H 98 H 94 H Respiratory 17 17 16 Rate Blood Pressure 160/92 158/84 158/84 O2 Sat by Pulse 100 100 100 Oximetry 03/26/18 03/26/18 03/26/18 23:21 23:31 23:41 Temperature Pulse Rate 95 H 101 H 100 H Respiratory 17 15 13 Rate Blood Pressure 158/84 158/84 158/84 O2 Sat by Pulse 100 100 100 Oximetry 03/26/18 03/26/18 03/27/18 23:50 23:51 00:00 Temperature 98.8 F Pulse Rate 93 H 92 H 105 H Respiratory 14 18 Rate Blood Pressure 158/84 158/84 158/84 O2 Sat by Pulse 100 100 Oximetry 03/27/18 03/27/18 03/27/18 00:11 00:21 00:31 Temperature Pulse Rate 105 H 104 H 101 H Respiratory 16 19 17 Rate Blood Pressure 191/101 176/97 176/97 O2 Sat by Pulse 100 100 100 Oximetry 03/27/18 03/27/18 03/27/18 01:00 01:23 01:31 Temperature Pulse Rate 99 H 98 H 98 H Respiratory 17 19 Rate Blood Pressure 155/85 176/97 155/85 O2 Sat by Pulse 100 100 100 Oximetry 03/27/18 03/27/18 03/27/18 02:00 02:31 02:58 Temperature Pulse Rate 101 H 109 H 98 H Respiratory 17 15 Rate Blood Pressure 155/85 149/78 149/78 O2 Sat by Pulse 100 100 100 Oximetry 03/27/18 03/27/18 03/27/18 03:00 03:31 04:00 Temperature 98.9 F Pulse Rate 97 H 98 H Respiratory 17 17 18 Rate Blood Pressure 168/86 168/86 O2 Sat by Pulse 100 100 100 Oximetry 03/27/18 03/27/18 03/27/18 04:01 04:31 05:00 Temperature Pulse Rate 103 H 92 H 94 H Respiratory 17 16 17 Rate Blood Pressure 193/93 171/90 176/89 O2 Sat by Pulse 100 100 100 Oximetry 03/27/18 03/27/18 03/27/18 05:31 06:00 06:31 Temperature Pulse Rate 92 H 92 H 90 Respiratory 18 13 17 Rate Blood Pressure 176/89 169/84 176/89 O2 Sat by Pulse 100 100 100 Oximetry 03/27/18 03/27/18 03/27/18 07:00 07:31 07:53 Temperature Pulse Rate 87 86 86 Respiratory 15 16 Rate Blood Pressure 170/83 170/83 170/83 O2 Sat by Pulse 100 100 100 Oximetry 03/27/18 03/27/18 03/27/18 08:00 08:18 08:31 Temperature 98.3 F Pulse Rate 100 H 97 H 86 Respiratory 9 L 12 Rate Blood Pressure 162/74 162/74 162/74 O2 Sat by Pulse 100 100 100 Oximetry 03/27/18 03/27/18 03/27/18 09:00 09:46 10:10 Temperature Pulse Rate 95 H Respiratory 12 Rate Blood Pressure 188/92 188/92 179/86 O2 Sat by Pulse 100 Oximetry - Labs CBC & Chem 7: 03/27/18 03:35 03/27/18 03:35 Labs: Abnormal lab results 03/26/18 03/26/18 03/26/18 Range/Units 08:20 09:15 10:30 WBC (4.5-11.0) K/mm3 RBC (3.65-5.03) M/mm3 Hgb (11.8-15.2) gm/dl Hct (35.5-45.6) % MCV (84-94) fl MCH (28-32) pg [place] % (Auto) (0.0-7.3) % [place] # (0.0-0.8) K/mm3 Seg Neutrophils % (40.0-70.0) % Seg Neutrophils # (1.8-7.7) K/mm3 Sodium 152 H (137-145) mmol/L Potassium 3.1 L (3.6-5.0) mmol/L Chloride 121.4 H (98-107) mmol/L Carbon Dioxide (22-30) mmol/L BUN 43 H (9-20) mg/dL Creatinine 2.6 H (0.8-1.5) mg/dL Glucose 105 H (75-100) mg/dL POC Glucose 170 H 177 H (70-105) Calcium 7.5 L (8.4-10.2) mg/dL AST (5-40) units/L Total Protein (6.3-8.2) g/dL Albumin (3.9-5) g/dL 03/26/18 03/26/18 03/26/18 Range/Units 10:46 14:57 15:35 WBC (4.5-11.0) K/mm3 RBC (3.65-5.03) M/mm3 Hgb (11.8-15.2) gm/dl Hct (35.5-45.6) % MCV (84-94) fl MCH (28-32) pg [place] % (Auto) (0.0-7.3) % [place] # (0.0-0.8) K/mm3 Seg Neutrophils % (40.0-70.0) % Seg Neutrophils # (1.8-7.7) K/mm3 Sodium 148 H (137-145) mmol/L Potassium (3.6-5.0) mmol/L Chloride 117.5 H (98-107) mmol/L Carbon Dioxide 18 L (22-30) mmol/L BUN 43 H (9-20) mg/dL Creatinine 2.5 H (0.8-1.5) mg/dL Glucose 135 H (75-100) mg/dL POC Glucose 125 H 159 H (70-105) Calcium 7.3 L (8.4-10.2) mg/dL AST (5-40) units/L Total Protein (6.3-8.2) g/dL Albumin (3.9-5) g/dL 03/26/18 03/26/18 03/26/18 Range/Units 18:12 19:27 21:42 WBC (4.5-11.0) K/mm3 RBC (3.65-5.03) M/mm3 Hgb (11.8-15.2) gm/dl Hct (35.5-45.6) % MCV (84-94) fl MCH (28-32) pg [place] % (Auto) (0.0-7.3) % [place] # (0.0-0.8) K/mm3 Seg Neutrophils % (40.0-70.0) % Seg Neutrophils # (1.8-7.7) K/mm3 Sodium (137-145) mmol/L Potassium (3.6-5.0) mmol/L Chloride 115.0 H (98-107) mmol/L Carbon Dioxide 20 L (22-30) mmol/L BUN 42 H (9-20) mg/dL Creatinine 2.4 H (0.8-1.5) mg/dL Glucose 221 H (75-100) mg/dL POC Glucose 245 H 261 H (70-105) Calcium 7.1 L (8.4-10.2) mg/dL AST (5-40) units/L Total Protein (6.3-8.2) g/dL Albumin (3.9-5) g/dL 03/27/18 03/27/18 03/27/18 Range/Units 02:03 03:35 03:35 WBC 12.3 H (4.5-11.0) K/mm3 RBC 3.05 L (3.65-5.03) M/mm3 Hgb 8.3 L (11.8-15.2) gm/dl Hct 25.3 L D (35.5-45.6) % MCV 83 L (84-94) fl MCH 27 L (28-32) pg [place] % (Auto) 8.6 H (0.0-7.3) % [place] # 1.1 H (0.0-0.8) K/mm3 Seg Neutrophils % 76.5 H (40.0-70.0) % Seg Neutrophils # 9.4 H (1.8-7.7) K/mm3 Sodium (137-145) mmol/L Potassium (3.6-5.0) mmol/L Chloride 112.6 H (98-107) mmol/L Carbon Dioxide (22-30) mmol/L BUN 36 H (9-20) mg/dL Creatinine 2.1 H (0.8-1.5) mg/dL Glucose 244 H (75-100) mg/dL POC Glucose 254 H (70-105) Calcium 7.1 L (8.4-10.2) mg/dL AST 44 H (5-40) units/L Total Protein 5.1 L D (6.3-8.2) g/dL Albumin 2.1 L (3.9-5) g/dL 03/27/18 03/27/18 Range/Units 05:20 08:22 WBC (4.5-11.0) K/mm3 RBC (3.65-5.03) M/mm3 Hgb (11.8-15.2) gm/dl Hct (35.5-45.6) % MCV (84-94) fl MCH (28-32) pg [place] % (Auto) (0.0-7.3) % [place] # (0.0-0.8) K/mm3 Seg Neutrophils % (40.0-70.0) % Seg Neutrophils # (1.8-7.7) K/mm3 Sodium (137-145) mmol/L Potassium (3.6-5.0) mmol/L Chloride (98-107) mmol/L Carbon Dioxide (22-30) mmol/L BUN (9-20) mg/dL Creatinine (0.8-1.5) mg/dL Glucose (75-100) mg/dL POC Glucose 263 H 306 H (70-105) Calcium (8.4-10.2) mg/dL AST (5-40) units/L Total Protein (6.3-8.2) g/dL Albumin (3.9-5) g/dL
--- NOTE | 2018-03-27 10:58 | Progress Note ---
Assessment and Plan Acute respiratory failure, on mechanical ventilator. Sepsis syndrome. Diabetic ketoacidosis. Severe metabolic acidosis. Acute on chronic encephalopathy, rule out cerebrovascular accident. Medication noncompliance. Anemia. Hyperkalemia. Acute kidney injury. - continue PSV trial as tolerated; get 2 hour ABG - if tolerates through the day will rest on AC with extubation in am after SBT - VAP bundle addressed - Continue empiric antibiotics for now, follow cultures then de-escalate based on SALOME - continue Enteral feeding ( discussed with brick dropper/marketing sales representative during IDT rounds)\ - continue VTE prophylaxis - continue Stress ulcer prophylaxis - continue daily SAT - continue Beard catheter for accurate intake and output measurement in this critically ill patient - Agitation and analgesia - Avoid delirium, avoid benzodiazepines - Avoid nephrotoxic agents and adjust all medications for CrCl/GFR - CXR prn - Mobility, PT/OT consult placed - continue other care per attending / other consultants The high probability of a clinically significant, sudden or life threatening deterioration of the [cardiac and respiratory] system(s) required my full and direct attention, intervention and personal management. The aggregate critical care time was [35] minutes without overlap. Time includes spent on; [x] Data Review and interpretation [x] Patient assessment and monitoring of vital signs [x] Documentation [x] Medication orders and management Subjective Date of service: 03/27/18 Principal diagnosis: Acute hypoxic respiratory failure, DKA, BELKIS, Acute encephalopathy Interval history: Patient is seen today for: Acute hypoxic respiratory failure, DKA, BELKIS, Acute encephalopathy Seen and examined at bedside; 24hour events reviewed; nursing and respiratory care staff consulted; no adverse overnight events reported to me; resting in bed ; denies any chest pains; on PSV but tolerating tenuously at times; No N/V/F/C; friends visiting in room Objective Vital Signs - 12hr 03/26/18 03/26/18 03/26/18 23:00 23:11 23:21 Temperature Pulse Rate 98 H 94 H 95 H Respiratory 17 16 17 Rate Blood Pressure 158/84 158/84 158/84 O2 Sat by Pulse 100 100 100 Oximetry 03/26/18 03/26/18 03/26/18 23:31 23:41 23:50 Temperature Pulse Rate 101 H 100 H 93 H Respiratory 15 13 Rate Blood Pressure 158/84 158/84 158/84 O2 Sat by Pulse 100 100 Oximetry 03/26/18 03/27/18 03/27/18 23:51 00:00 00:11 Temperature 98.8 F Pulse Rate 92 H 105 H 105 H Respiratory 14 18 16 Rate Blood Pressure 158/84 158/84 191/101 O2 Sat by Pulse 100 100 100 Oximetry 03/27/18 03/27/18 03/27/18 00:21 00:31 01:00 Temperature Pulse Rate 104 H 101 H 99 H Respiratory 19 17 17 Rate Blood Pressure 176/97 176/97 155/85 O2 Sat by Pulse 100 100 100 Oximetry 03/27/18 03/27/18 03/27/18 01:23 01:31 02:00 Temperature Pulse Rate 98 H 98 H 101 H Respiratory 19 17 Rate Blood Pressure 176/97 155/85 155/85 O2 Sat by Pulse 100 100 100 Oximetry 03/27/18 03/27/18 03/27/18 02:31 02:58 03:00 Temperature Pulse Rate 109 H 98 H 97 H Respiratory 15 17 Rate Blood Pressure 149/78 149/78 168/86 O2 Sat by Pulse 100 100 100 Oximetry 03/27/18 03/27/18 03/27/18 03:31 04:00 04:01 Temperature 98.9 F Pulse Rate 98 H 103 H Respiratory 17 18 17 Rate Blood Pressure 168/86 193/93 O2 Sat by Pulse 100 100 100 Oximetry 03/27/18 03/27/18 03/27/18 04:31 05:00 05:31 Temperature Pulse Rate 92 H 94 H 92 H Respiratory 16 17 18 Rate Blood Pressure 171/90 176/89 176/89 O2 Sat by Pulse 100 100 100 Oximetry 03/27/18 03/27/18 03/27/18 06:00 06:31 07:00 Temperature Pulse Rate 92 H 90 87 Respiratory 13 17 15 Rate Blood Pressure 169/84 176/89 170/83 O2 Sat by Pulse 100 100 100 Oximetry 03/27/18 03/27/18 03/27/18 07:31 07:53 08:00 Temperature 98.3 F Pulse Rate 86 86 100 H Respiratory 16 9 L Rate Blood Pressure 170/83 170/83 162/74 O2 Sat by Pulse 100 100 100 Oximetry 03/27/18 03/27/18 03/27/18 08:18 08:31 09:00 Temperature Pulse Rate 97 H 86 95 H Respiratory 12 12 Rate Blood Pressure 162/74 162/74 188/92 O2 Sat by Pulse 100 100 100 Oximetry 03/27/18 03/27/18 03/27/18 09:31 09:46 10:00 Temperature Pulse Rate 90 87 Respiratory 13 12 Rate Blood Pressure 188/92 188/92 179/86 O2 Sat by Pulse 100 100 Oximetry 03/27/18 10:10 Temperature Pulse Rate Respiratory Rate Blood Pressure 179/86 O2 Sat by Pulse Oximetry Constitutional: appears uncomfortable, other (middle aged AAM, normocephalic and atraumatic) Eyes: non-icteric ENT: oropharynx moist, other (mallampatti 2) Neck: supple, no lymphadenopathy, no JVD, other (no thyromegaly) Effort: mildly labored Ascultation: Bilateral: diminished breath sounds, rhonchi (posterior base) Percussion: Bilateral: not dull Cardiovascular: regular rate and rhythm, other (No R/M) Gastrointestinal: normoactive bowel sounds, soft, non-tender, non-distended, other ( No HSM) Integumentary: normal Extremities: no cyanosis, pulses normal, no ischemia or petechiae, edema (to hands) Neurologic: normal mental status, non-focal exam (grossly), pupils equal and round, CN II-XII normal, motor strength normal and Psychiatric: mood appropriate, affect normal CBC and BMP: 03/29/18 05:45 03/29/18 04:23 ABG, PT/INR, D-dimer: ABG POC ABG pH 7.409 (7.35-7.45) 03/27/18 08:20 POC ABG pCO2 38.5 (35-45) 03/27/18 08:20 POC ABG pO2 91 (80-105) 03/27/18 08:20 POC ABG HCO3 24.3 03/27/18 08:20 POC ABG Total CO2 26 03/27/18 08:20 POC ABG O2 Sat 97 03/27/18 08:20 Abnormal lab findings: Abnormal Labs 03/25/18 03/25/18 03/25/18 13:48 14:00 14:00 WBC 15.3 H RBC Hgb 10.5 L Hct MCV 95 H MCH 27 L MCHC 28 L Lymph % (Auto) 8.5 L [place] % (Auto) [place] # Seg Neutrophils % 86.4 H Seg Neutrophils # 13.2 H POC ABG pH POC ABG pCO2 POC ABG pO2 VBG pH Sodium 132 L Potassium 8.1 H* Chloride 87.8 L Carbon Dioxide 3 L* BUN 43 H Creatinine 2.6 H Glucose 1026 H* POC Glucose > 500 H Hemoglobin A1c Lactic Acid Calcium Phosphorus AST Total Creatine Kinase Troponin T Total Protein Albumin Triglycerides Cholesterol LDL Cholesterol Direct 03/25/18 03/25/18 03/25/18 14:00 14:08 14:29 WBC RBC Hgb Hct MCV MCH MCHC Lymph % (Auto) [place] % (Auto) [place] # Seg Neutrophils % Seg Neutrophils # POC ABG pH 6.952 L POC ABG pCO2 25.8 L POC ABG pO2 559 H VBG pH Sodium Potassium Chloride Carbon Dioxide BUN Creatinine Glucose POC Glucose Hemoglobin A1c Lactic Acid 10.10 H* Calcium Phosphorus 8.70 H AST Total Creatine Kinase Troponin T Total Protein Albumin 2.6 L Triglycerides Cholesterol LDL Cholesterol Direct 03/25/18 03/25/18 03/25/18 14:41 15:40 15:40 WBC RBC Hgb Hct MCV MCH MCHC Lymph % (Auto) [place] % (Auto) [place] # Seg Neutrophils % Seg Neutrophils # POC ABG pH POC ABG pCO2 POC ABG pO2 VBG pH 7.000 L* Sodium Potassium 6.7 H* Chloride 97.5 L Carbon Dioxide 5 L* BUN 43 H Creatinine 2.5 H Glucose 893 H* POC Glucose Hemoglobin A1c Lactic Acid Calcium 7.5 L Phosphorus 9.10 H AST Total Creatine Kinase Troponin T Total Protein Albumin Triglycerides Cholesterol LDL Cholesterol Direct 03/25/18 03/25/18 03/25/18 18:09 18:12 18:55 WBC RBC Hgb Hct MCV MCH MCHC Lymph % (Auto) [place] % (Auto) [place] # Seg Neutrophils % Seg Neutrophils # POC ABG pH POC ABG pCO2 POC ABG pO2 VBG pH Sodium 133 L Potassium 5.7 H Chloride 93.1 L Carbon Dioxide 10 L BUN 43 H Creatinine 2.5 H Glucose 786 H* POC Glucose Hemoglobin A1c 8.9 H Lactic Acid Calcium 7.8 L Phosphorus AST Total Creatine Kinase 226 H Troponin T 0.033 H Total Protein Albumin Triglycerides 185 H Cholesterol 215 H LDL Cholesterol Direct 144 H 03/25/18 03/25/18 03/25/18 18:55 21:00 21:03 WBC RBC Hgb Hct MCV MCH MCHC Lymph % (Auto) [place] % (Auto) [place] # Seg Neutrophils % Seg Neutrophils # POC ABG pH POC ABG pCO2 POC ABG pO2 VBG pH Sodium 136 L Potassium 6.7 H* Chloride Carbon Dioxide 7 L* BUN 45 H Creatinine 2.6 H Glucose 879 H* POC Glucose > 500 H Hemoglobin A1c Lactic Acid Calcium 7.8 L Phosphorus 9.20 H AST Total Creatine Kinase Troponin T Total Protein Albumin Triglycerides Cholesterol LDL Cholesterol Direct 03/25/18 03/25/18 03/25/18 21:39 22:06 23:20 WBC RBC Hgb Hct MCV MCH MCHC Lymph % (Auto) [place] % (Auto) [place] # Seg Neutrophils % Seg Neutrophils # POC ABG pH 7.272 L POC ABG pCO2 14.2 L POC ABG pO2 263 H VBG pH Sodium Potassium Chloride Carbon Dioxide 7 L* BUN 47 H Creatinine 2.9 H Glucose 702 H* POC Glucose > 500 H Hemoglobin A1c Lactic Acid Calcium 7.6 L Phosphorus AST Total Creatine Kinase Troponin T Total Protein Albumin Triglycerides Cholesterol LDL Cholesterol Direct 03/25/18 03/26/18 03/26/18 23:20 00:17 01:08 WBC RBC Hgb Hct MCV MCH MCHC Lymph % (Auto) [place] % (Auto) [place] # Seg Neutrophils % Seg Neutrophils # POC ABG pH POC ABG pCO2 POC ABG pO2 VBG pH Sodium Potassium Chloride Carbon Dioxide BUN Creatinine Glucose POC Glucose > 500 H 447 H 484 H Hemoglobin A1c Lactic Acid Calcium Phosphorus AST Total Creatine Kinase Troponin T Total Protein Albumin Triglycerides Cholesterol LDL Cholesterol Direct 03/26/18 03/26/18 03/26/18 02:31 03:07 04:09 WBC RBC Hgb Hct MCV MCH MCHC Lymph % (Auto) [place] % (Auto) [place] # Seg Neutrophils % Seg Neutrophils # POC ABG pH POC ABG pCO2 POC ABG pO2 VBG pH Sodium Potassium Chloride Carbon Dioxide BUN Creatinine Glucose POC Glucose > 500 H 467 H 361 H Hemoglobin A1c Lactic Acid Calcium Phosphorus AST Total Creatine Kinase Troponin T Total Protein Albumin Triglycerides Cholesterol LDL Cholesterol Direct 03/26/18 03/26/18 03/26/18 04:25 04:52 05:24 WBC RBC Hgb Hct MCV MCH MCHC Lymph % (Auto) [place] % (Auto) [place] # Seg Neutrophils % Seg Neutrophils # POC ABG pH POC ABG pCO2 26.2 L POC ABG pO2 39 L VBG pH Sodium 150 H D Potassium 3.4 L D Chloride 118.3 H Carbon Dioxide 16 L D BUN 45 H Creatinine 2.7 H Glucose 278 H POC Glucose 306 H Hemoglobin A1c Lactic Acid Calcium 7.7 L Phosphorus AST Total Creatine Kinase Troponin T Total Protein Albumin Triglycerides Cholesterol LDL Cholesterol Direct 03/26/18 03/26/18 03/26/18 06:19 07:09 08:20 WBC RBC Hgb Hct MCV MCH MCHC Lymph % (Auto) [place] % (Auto) [place] # Seg Neutrophils % Seg Neutrophils # POC ABG pH POC ABG pCO2 POC ABG pO2 VBG pH Sodium Potassium Chloride Carbon Dioxide BUN Creatinine Glucose POC Glucose 188 H 148 H 170 H Hemoglobin A1c Lactic Acid Calcium Phosphorus AST Total Creatine Kinase Troponin T Total Protein Albumin Triglycerides Cholesterol LDL Cholesterol Direct 03/26/18 03/26/18 03/26/18 09:12 09:15 10:30 WBC RBC Hgb Hct MCV MCH MCHC Lymph % (Auto) [place] % (Auto) [place] # Seg Neutrophils % Seg Neutrophils # POC ABG pH 7.530 H POC ABG pCO2 22.0 L POC ABG pO2 147 H VBG pH Sodium 152 H Potassium 3.1 L Chloride 121.4 H Carbon Dioxide BUN 43 H Creatinine 2.6 H Glucose 105 H POC Glucose 177 H Hemoglobin A1c Lactic Acid Calcium 7.5 L Phosphorus AST Total Creatine Kinase Troponin T Total Protein Albumin Triglycerides Cholesterol LDL Cholesterol Direct 03/26/18 03/26/18 03/26/18 10:46 14:57 15:35 WBC RBC Hgb Hct MCV MCH MCHC Lymph % (Auto) [place] % (Auto) [place] # Seg Neutrophils % Seg Neutrophils # POC ABG pH POC ABG pCO2 POC ABG pO2 VBG pH Sodium 148 H Potassium Chloride 117.5 H Carbon Dioxide 18 L BUN 43 H Creatinine 2.5 H Glucose 135 H POC Glucose 125 H 159 H Hemoglobin A1c Lactic Acid Calcium 7.3 L Phosphorus AST Total Creatine Kinase Troponin T Total Protein Albumin Triglycerides Cholesterol LDL Cholesterol Direct 03/26/18 03/26/18 03/26/18 18:12 19:27 21:42 WBC RBC Hgb Hct MCV MCH MCHC Lymph % (Auto) [place] % (Auto) [place] # Seg Neutrophils % Seg Neutrophils # POC ABG pH POC ABG pCO2 POC ABG pO2 VBG pH Sodium Potassium Chloride 115.0 H Carbon Dioxide 20 L BUN 42 H Creatinine 2.4 H Glucose 221 H POC Glucose 245 H 261 H Hemoglobin A1c Lactic Acid Calcium 7.1 L Phosphorus AST Total Creatine Kinase Troponin T Total Protein Albumin Triglycerides Cholesterol LDL Cholesterol Direct 03/27/18 03/27/18 03/27/18 02:03 03:35 03:35 WBC 12.3 H RBC 3.05 L Hgb 8.3 L Hct 25.3 L D MCV 83 L MCH 27 L MCHC Lymph % (Auto) [place] % (Auto) 8.6 H Henry # 1.1 H Seg Neutrophils % 76.5 H Seg Neutrophils # 9.4 H POC ABG pH POC ABG pCO2 POC ABG pO2 VBG pH Sodium Potassium Chloride 112.6 H Carbon Dioxide BUN 36 H Creatinine 2.1 H Glucose 244 H POC Glucose 254 H Hemoglobin A1c Lactic Acid Calcium 7.1 L Phosphorus AST 44 H Total Creatine Kinase Troponin T Total Protein 5.1 L D Albumin 2.1 L Triglycerides Cholesterol LDL Cholesterol Direct 03/27/18 03/27/18 05:20 08:22 WBC RBC Hgb Hct MCV MCH MCHC Lymph % (Auto) [place] % (Auto) [place] # Seg Neutrophils % Seg Neutrophils # POC ABG pH POC ABG pCO2 POC ABG pO2 VBG pH Sodium Potassium Chloride Carbon Dioxide BUN Creatinine Glucose POC Glucose 263 H 306 H Hemoglobin A1c Lactic Acid Calcium Phosphorus AST Total Creatine Kinase Troponin T Total Protein Albumin Triglycerides Cholesterol LDL Cholesterol Direct Chest x-ray: image reviewed (RIJ line otherwise no acute process) Allied health notes reviewed: nursing
[2018-03-27] MEDS ORDERED: COREG PO ONE (12:00)
[2018-03-27] MEDS: APRESOLINE IV PRN ×2 (14:46→19:41)
--- NOTE | 2018-03-27 16:39 | Progress Note ---
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: -Renal function reviewed, SCr level was 2.1 today, yesterday's SCr level was 2.4 -Renally dose meds -Strict intake and output -On 0.45% NS infusion at 125 ml/hr -Obtain daily weight -Beard Catheter: Yes -Intake= 2933 ml Output= 1650 ml ( Net= 1283 ml) -Renal plan d/w Dr Adrian -Continue supportive therapy Acute Respiratory Failure: -Intubated on ventilator -Pulmonology on board DKA: -Improving -Off insulin drip -On insulin -On DKA protocol Essential Hypertension: -On clonidine patch and coreg Anemia: -Check iron studies Subjective Date of service: 03/27/18 Principal diagnosis: Acute hypoxic respiratory failure, DKA, BELKIS, Acute encephalopathy Interval history: Pt intubated, awake, follows simple commands, ex- at bedside Objective - Vital Signs Vital signs: Vital Signs - 12hr 03/27/18 03/27/18 03/27/18 05:00 05:31 06:00 Temperature Pulse Rate 94 H 92 H 92 H Respiratory 17 18 13 Rate Blood Pressure 176/89 176/89 169/84 O2 Sat by Pulse 100 100 100 Oximetry 03/27/18 03/27/18 03/27/18 06:31 07:00 07:31 Temperature Pulse Rate 90 87 86 Respiratory 17 15 16 Rate Blood Pressure 176/89 170/83 170/83 O2 Sat by Pulse 100 100 100 Oximetry 03/27/18 03/27/18 03/27/18 07:53 08:00 08:18 Temperature 98.3 F Pulse Rate 86 100 H 97 H Respiratory 9 L Rate Blood Pressure 170/83 162/74 162/74 O2 Sat by Pulse 100 100 100 Oximetry 03/27/18 03/27/18 03/27/18 08:31 09:00 09:31 Temperature Pulse Rate 86 95 H 90 Respiratory 12 12 13 Rate Blood Pressure 162/74 188/92 188/92 O2 Sat by Pulse 100 100 100 Oximetry 03/27/18 03/27/18 03/27/18 09:46 10:00 10:10 Temperature Pulse Rate 87 Respiratory 12 Rate Blood Pressure 188/92 179/86 179/86 O2 Sat by Pulse 100 Oximetry 03/27/18 03/27/18 03/27/18 10:31 11:00 11:31 Temperature Pulse Rate 80 81 80 Respiratory 14 10 L 13 Rate Blood Pressure 179/86 151/81 151/81 O2 Sat by Pulse 100 100 100 Oximetry 03/27/18 03/27/18 03/27/18 12:00 12:18 12:31 Temperature 98.1 F Pulse Rate 80 78 78 Respiratory 18 13 Rate Blood Pressure 159/84 159/84 159/84 O2 Sat by Pulse 100 100 100 Oximetry 03/27/18 03/27/18 03/27/18 13:00 13:23 13:30 Temperature Pulse Rate 80 82 Respiratory 13 18 Rate Blood Pressure 172/82 172/82 O2 Sat by Pulse 100 100 Oximetry 03/27/18 03/27/18 03/27/18 14:00 14:30 14:46 Temperature Pulse Rate 86 82 79 Respiratory 17 17 Rate Blood Pressure 172/82 174/83 174/83 O2 Sat by Pulse 100 100 Oximetry 03/27/18 03/27/18 03/27/18 15:00 15:31 15:52 Temperature 98.4 F Pulse Rate 86 86 Respiratory 17 19 Rate Blood Pressure 158/78 158/78 O2 Sat by Pulse 100 100 Oximetry 03/27/18 16:00 Temperature Pulse Rate 87 Respiratory 17 Rate Blood Pressure 167/78 O2 Sat by Pulse 100 Oximetry - General Appearance General appearance: intubated (no acute distress) EENT: ATNC Neck: no JVD Respiratory: Present: Other (Lung sounds decreased bilaterally, intubated on ventilator) Cardiology: regular, S1S2 Gastrointestinal: normoactive bowel sounds, other (: Beard to gravity draining christiano colored urine) Integumentary: warm and dry Neurologic: other (intubated, awake, follows simple commands, moves all 4 extremities) Musculoskeletal: other (no edema to both lower extremities) Psychiatric: cooperative - Lab 03/27/18 03:35 03/27/18 03:35 Most recent lab results Calcium 7.1 mg/dL (8.4-10.2) L 03/27/18 03:35 Phosphorus 9.20 mg/dL (2.5-4.5) H 03/25/18 18:55 Magnesium 2.20 mg/dL (1.7-2.3) 03/25/18 18:55
[2018-03-28] MEDS: HumuLIN R SUB-Q SCH ×6 (02:46→21:51)
[2018-03-28] MEDS: APRESOLINE IV PRN (03:31)
[2018-03-28] MEDS: NACL 0.45% 1000 ML 1,000 ML IV SCH ×2 (04:09→19:47)
[2018-03-28 05:32] LABS: Iron 54 ug/dL (49-181); Total Iron Binding Capacity 115 mcg/dL (250-450); Transferrin 94 mg/dl (180-329)
[2018-03-28] MEDS: HEPARIN SUB-Q SCH ×3 (05:32→21:22)
--- NOTE | 2018-03-28 10:28 | Progress Note ---
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: -labs are pending this AM, good UOP -Renally dose meds -Strict intake and output -Obtain daily weight -Beard Catheter: Yes Acute Respiratory Failure: -Intubated on ventilator -Pulmonology on board DKA: -Improving -Off insulin drip -On insulin -On DKA protocol Essential Hypertension: -On clonidine patch and coreg Subjective Date of service: 03/28/18 Principal diagnosis: Acute hypoxic respiratory failure, DKA, BELKIS, Acute encephalopathy Interval history: patient is intubated and sedated, no family at bedside Objective - Vital Signs Vital signs: Vital Signs - 12hr 03/27/18 03/27/18 03/27/18 22:31 23:00 23:31 Temperature Pulse Rate 90 86 85 Respiratory 19 18 17 Rate Blood Pressure 182/85 158/82 158/82 O2 Sat by Pulse 100 100 100 Oximetry 03/27/18 03/27/18 03/28/18 23:37 23:39 00:00 Temperature 100.8 F H Pulse Rate 86 100 H Respiratory 19 19 Rate Blood Pressure 158/82 152/88 O2 Sat by Pulse 100 100 Oximetry 03/28/18 03/28/18 03/28/18 00:31 01:00 01:31 Temperature Pulse Rate 86 93 H 87 Respiratory 17 17 18 Rate Blood Pressure 158/82 152/88 177/84 O2 Sat by Pulse 100 100 100 Oximetry 03/28/18 03/28/18 03/28/18 02:00 02:31 03:00 Temperature Pulse Rate 91 H 135 H 87 Respiratory 16 34 H 17 Rate Blood Pressure 170/74 170/74 173/86 O2 Sat by Pulse 100 66 L 100 Oximetry 03/28/18 03/28/18 03/28/18 03:08 03:27 03:31 Temperature 99.6 F Pulse Rate 85 83 Respiratory 16 Rate Blood Pressure 173/86 170/74 O2 Sat by Pulse 100 100 Oximetry 03/28/18 03/28/18 03/28/18 03:41 03:51 04:00 Temperature Pulse Rate 102 H 99 H 109 H Respiratory 19 19 16 Rate Blood Pressure 170/74 170/74 185/82 O2 Sat by Pulse 100 100 100 Oximetry 03/28/18 03/28/18 03/28/18 04:11 04:31 05:00 Temperature Pulse Rate 97 H 98 H 102 H Respiratory 20 17 17 Rate Blood Pressure 167/79 167/79 174/81 O2 Sat by Pulse 100 100 100 Oximetry 03/28/18 03/28/18 03/28/18 05:31 06:00 06:31 Temperature Pulse Rate 97 H 90 91 H Respiratory 16 18 16 Rate Blood Pressure 174/81 157/81 157/81 O2 Sat by Pulse 100 100 100 Oximetry 03/28/18 03/28/18 03/28/18 07:00 08:00 08:35 Temperature 98.4 F Pulse Rate 88 94 H Respiratory 18 18 Rate Blood Pressure 158/82 171/85 O2 Sat by Pulse 100 100 Oximetry - General Appearance General appearance: well-developed, well-nourished, sedated on ventilator, intubated EENT: ATNC, mucous membranes moist Neck: no JVD, no carotid bruit Respiratory: Present: Clear to Ascultation. Absent: Rales, Ronchi Cardiology: regular, S1S2 Gastrointestinal: normoactive bowel sounds, no tenderness, no distended Integumentary: no rash, warm and dry Neurologic: other (intubated ) Musculoskeletal: other (no edema in BLE) Psychiatric: other (intubated) - Lab 03/27/18 03:35 03/27/18 03:35 Most recent lab results Calcium 7.1 mg/dL (8.4-10.2) L 03/27/18 03:35 Phosphorus 9.20 mg/dL (2.5-4.5) H 03/25/18 18:55 Magnesium 2.20 mg/dL (1.7-2.3) 03/25/18 18:55
--- NOTE | 2018-03-28 10:34 | Progress Note ---
Assessment and Plan SIRS possibly from DKA Acute hypoxic respiratory failure on MVS Acute encephalopathy( toxic, metabolic) Diabetic ketoacidosis Severe metabolic acidosis Severe Hyperkalemia ( Potassium was 8.1 on admission) BELKIS (acute kidney injury)secondary to severe dehydration BUN/creatinine on March 16 was 41/1.5, on admission was 43/2.5. Hypernatremia -VAP bundle addressed -Continue empiric antibiotics for now, follow cultures then de-escalate based on SALOME -Continue with fluid and insulin management per DKA protocol -Change insulin to long acting with scheduled short acting insulin therapy TID -Enteral feeding with steady-carb formula( discussed with pediatric geneticist/ land conservation specialist during IDT rounds)\\ -VTE prophylaxis -Stress ulcer prophylaxis -SAT and SBT today ( discussed with RT and RN during IDT rounds, plan to liberate from mechanical ventilatory support today) -Beard catheter for accurate intake and output measurement in this critically ill patient -Agitation and analgesia -Avoid delirium, avoid benzodiazepines -Electrolyte management -Avoid nephrotoxic agents and adjust all medications for CrCl/GFR -ABGS -CXR prn -Mobility, PT/OT consult placed -Address and treat electrolyte abnormalities The high probability of a clinically significant, sudden or life threatening deterioration of the system( Respiratory, endocrine, cardiovascular) required my full and direct attention, intervention and personal management. The aggregate critical care time was 35 minutes. This time is in addition to time spent performing reported procedures but includes the following: [x] Data Review and interpretation [x] Patient assessment and monitoring of vital signs [x] Documentation [x] Medication orders and management Subjective Date of service: 03/28/18 Principal diagnosis: Acute hypoxic respiratory failure, DKA, BELKIS, Acute encephalopathy Interval history: Documentation per ER MD. Unable to get history from the patient he is orally intubated. This is a 52-year-old insulin-dependent diabetic who was found essentially obtunded in his residence. No history was obtainable from the patient. Family members state that they have not seen him for perhaps 48 hours. He was found by his brother and obviously dire condition and EMS was notified. Medics transported to the patient to this facility fighting a sugar to be above the scale. The patient had been disconnected from his insulin pump. He was placed in a resuscitation room. He was deemed to be unable to adequately protect his airway. His respiratory rate was about 50. He was thus intubated using rapid sequence intubation technique. Later I spoke to the [place] doctor (Dr. Carrera? sp). She stated that actually the patient had been seen in the [facility] on Sunday. He was found to have a sugar greater than 1000. He was given insulin and fluid. Apparently he was discharged with a sugar in the 400s. At that time he was fully ambulatory. He was documented to be in "good spirits". Follow up: Patient was seen and examined. Vitals, labs, medications and chart reviewed. Critically ill on mechanical ventilatory support, and insulin infusion. Hemodynamically..has sinus tachycardia with adequate blood pressure parameters. No acute overnight events reported or documented Patient was discussed in ICU-IDT rounds Objective - Exam Narrative Exam: Patient intubated GENERAL: -Tong[place] male lying on bed appeared to be in no discomfort. Intubated No patient -ventialtor dyssynchrony HEENT: Normocephalic. Atraumatic. No conjunctival congestion or icterus. Patient has moist mucous membranes. NECK: Supple. Trachea midline. ET tube in place CHEST/LUNGS: Clear to auscultated bilaterally, mechanically ventilated HEART/CARDIOVASCULAR: Regular in rate and rhythm. S1 and S2 positive. ABDOMEN: Abdomen is soft, non tender. Patient has normal bowel sounds. SKIN: There is no rash. Warm and dry. NEURO:Awake, alert, obeys simple commands MUSCULOSKELETAL: No joint effusion or tenderness. EXTRIMITY: No edema, no cyanosis or clubbing. PSYCH: Good affect Vital Signs - 12hr 03/27/18 03/27/18 03/27/18 23:00 23:31 23:37 Temperature 100.8 F H Pulse Rate 86 85 Respiratory 18 17 Rate Blood Pressure 158/82 158/82 O2 Sat by Pulse 100 100 Oximetry 03/27/18 03/28/18 03/28/18 23:39 00:00 00:31 Temperature Pulse Rate 86 100 H 86 Respiratory 19 19 17 Rate Blood Pressure 158/82 152/88 158/82 O2 Sat by Pulse 100 100 100 Oximetry 03/28/18 03/28/18 03/28/18 01:00 01:31 02:00 Temperature Pulse Rate 93 H 87 91 H Respiratory 17 18 16 Rate Blood Pressure 152/88 177/84 170/74 O2 Sat by Pulse 100 100 100 Oximetry 03/28/18 03/28/1818 02:31 03:00 03:08 Temperature Pulse Rate 135 H 87 85 Respiratory 34 H 17 Rate Blood Pressure 170/74 173/86 173/86 O2 Sat by Pulse 66 L 100 100 Oximetry 03/28/18 03/28/18 03/28/18 03:27 03:31 03:41 Temperature 99.6 F Pulse Rate 83 102 H Respiratory 16 19 Rate Blood Pressure 170/74 170/74 O2 Sat by Pulse 100 100 Oximetry 03/28/18 03/28/18 03/28/18 03:51 04:00 04:11 Temperature Pulse Rate 99 H 109 H 97 H Respiratory 19 16 20 Rate Blood Pressure 170/74 185/82 167/79 O2 Sat by Pulse 100 100 100 Oximetry 03/28/18 03/28/18 03/28/18 04:31 05:00 05:31 Temperature Pulse Rate 98 H 102 H 97 H Respiratory 17 17 16 Rate Blood Pressure 167/79 174/81 174/81 O2 Sat by Pulse 100 100 100 Oximetry 03/28/18 03/28/18 03/28/18 06:00 06:31 07:00 Temperature Pulse Rate 90 91 H 88 Respiratory 18 16 18 Rate Blood Pressure 157/81 157/81 158/82 O2 Sat by Pulse 100 100 100 Oximetry 03/28/18 03/28/18 08:00 08:35 Temperature 98.4 F Pulse Rate 94 H Respiratory 18 Rate Blood Pressure 171/85 O2 Sat by Pulse 100 Oximetry CBC and BMP: 03/30/18 06:39 03/30/18 06:39 ABG, PT/INR, D-dimer: ABG POC ABG pH 7.405 (7.35-7.45) 03/28/18 03:49 POC ABG pCO2 38.6 (35-45) 03/28/18 03:49 POC ABG pO2 102 (80-105) 03/28/18 03:49 POC ABG HCO3 24.2 03/28/18 03:49 POC ABG Total CO2 25 03/28/18 03:49 POC ABG O2 Sat 98 03/28/18 03:49 Abnormal lab findings: Abnormal Labs 03/25/18 03/25/18 03/25/18 13:48 14:00 14:00 WBC 15.3 H RBC Hgb 10.5 L Hct MCV 95 H MCH 27 L MCHC 28 L Lymph % (Auto) 8.5 L [place] % (Auto) [place] # Seg Neutrophils % 86.4 H Seg Neutrophils # 13.2 H POC ABG pH POC ABG pCO2 POC ABG pO2 VBG pH Sodium 132 L Potassium 8.1 H* Chloride 87.8 L Carbon Dioxide 3 L* BUN 43 H Creatinine 2.6 H Glucose 1026 H* POC Glucose > 500 H Hemoglobin A1c Lactic Acid Calcium Phosphorus TIBC Transferrin Ferritin AST Total Creatine Kinase Troponin T Total Protein Albumin Triglycerides Cholesterol LDL Cholesterol Direct 03/25/18 03/25/18 03/25/18 14:00 14:08 14:29 WBC RBC Hgb Hct MCV MCH MCHC Lymph % (Auto) [place] % (Auto) [place] # Seg Neutrophils % Seg Neutrophils # POC ABG pH 6.952 L POC ABG pCO2 25.8 L POC ABG pO2 559 H VBG pH Sodium Potassium Chloride Carbon Dioxide BUN Creatinine Glucose POC Glucose Hemoglobin A1c Lactic Acid 10.10 H* Calcium Phosphorus 8.70 H TIBC Transferrin Ferritin AST Total Creatine Kinase Troponin T Total Protein Albumin 2.6 L Triglycerides Cholesterol LDL Cholesterol Direct 03/25/18 03/25/18 03/25/18 14:41 15:40 15:40 WBC RBC Hgb Hct MCV MCH MCHC Lymph % (Auto) [place] % (Auto) [place] # Seg Neutrophils % Seg Neutrophils # POC ABG pH POC ABG pCO2 POC ABG pO2 VBG pH 7.000 L* Sodium Potassium 6.7 H* Chloride 97.5 L Carbon Dioxide 5 L* BUN 43 H Creatinine 2.5 H Glucose 893 H* POC Glucose Hemoglobin A1c Lactic Acid Calcium 7.5 L Phosphorus 9.10 H TIBC Transferrin Ferritin AST Total Creatine Kinase Troponin T Total Protein Albumin Triglycerides Cholesterol LDL Cholesterol Direct 03/25/18 03/25/18 03/25/18 18:09 18:12 18:55 WBC RBC Hgb Hct MCV MCH MCHC Lymph % (Auto) [place] % (Auto) [place] # Seg Neutrophils % Seg Neutrophils # POC ABG pH POC ABG pCO2 POC ABG pO2 VBG pH Sodium 133 L Potassium 5.7 H Chloride 93.1 L Carbon Dioxide 10 L BUN 43 H Creatinine 2.5 H Glucose 786 H* POC Glucose Hemoglobin A1c 8.9 H Lactic Acid Calcium 7.8 L Phosphorus TIBC Transferrin Ferritin AST Total Creatine Kinase 226 H Troponin T 0.033 H Total Protein Albumin Triglycerides 185 H Cholesterol 215 H LDL Cholesterol Direct 144 H 03/25/18 03/25/18 03/25/18 18:55 21:00 21:03 WBC RBC Hgb Hct MCV MCH MCHC Lymph % (Auto) [place] % (Auto) [place] # Seg Neutrophils % Seg Neutrophils # POC ABG pH POC ABG pCO2 POC ABG pO2 VBG pH Sodium 136 L Potassium 6.7 H* Chloride Carbon Dioxide 7 L* BUN 45 H Creatinine 2.6 H Glucose 879 H* POC Glucose > 500 H Hemoglobin A1c Lactic Acid Calcium 7.8 L Phosphorus 9.20 H TIBC Transferrin Ferritin AST Total Creatine Kinase Troponin T Total Protein Albumin Triglycerides Cholesterol LDL Cholesterol Direct 03/25/18 03/25/18 03/25/18 21:39 22:06 23:20 WBC RBC Hgb Hct MCV MCH MCHC Lymph % (Auto) [place] % (Auto) [place] # Seg Neutrophils % Seg Neutrophils # POC ABG pH 7.272 L POC ABG pCO2 14.2 L POC ABG pO2 263 H VBG pH Sodium Potassium Chloride Carbon Dioxide 7 L* BUN 47 H Creatinine 2.9 H Glucose 702 H* POC Glucose > 500 H Hemoglobin A1c Lactic Acid Calcium 7.6 L Phosphorus TIBC Transferrin Ferritin AST Total Creatine Kinase Troponin T Total Protein Albumin Triglycerides Cholesterol LDL Cholesterol Direct 03/25/18 03/26/18 03/26/18 23:20 00:17 01:08 WBC RBC Hgb Hct MCV MCH MCHC Lymph % (Auto) [place] % (Auto) [place] # Seg Neutrophils % Seg Neutrophils # POC ABG pH POC ABG pCO2 POC ABG pO2 VBG pH Sodium Potassium Chloride Carbon Dioxide BUN Creatinine Glucose POC Glucose > 500 H 447 H 484 H Hemoglobin A1c Lactic Acid Calcium Phosphorus TIBC Transferrin Ferritin AST Total Creatine Kinase Troponin T Total Protein Albumin Triglycerides Cholesterol LDL Cholesterol Direct 03/26/18 03/26/18 03/26/18 02:31 03:07 04:09 WBC RBC Hgb Hct MCV MCH MCHC Lymph % (Auto) [place] % (Auto) [place] # Seg Neutrophils % Seg Neutrophils # POC ABG pH POC ABG pCO2 POC ABG pO2 VBG pH Sodium Potassium Chloride Carbon Dioxide BUN Creatinine Glucose POC Glucose > 500 H 467 H 361 H Hemoglobin A1c Lactic Acid Calcium Phosphorus TIBC Transferrin Ferritin AST Total Creatine Kinase Troponin T Total Protein Albumin Triglycerides Cholesterol LDL Cholesterol Direct 03/26/18 03/26/18 03/26/18 04:25 05:24 06:19 WBC RBC Hgb Hct MCV MCH MCHC Lymph % (Auto) [place] % (Auto) [place] # Seg Neutrophils % Seg Neutrophils # POC ABG pH POC ABG pCO2 POC ABG pO2 VBG pH Sodium 150 H D Potassium 3.4 L D Chloride 118.3 H Carbon Dioxide 16 L D BUN 45 H Creatinine 2.7 H Glucose 278 H POC Glucose 306 H 188 H Hemoglobin A1c Lactic Acid Calcium 7.7 L Phosphorus TIBC Transferrin Ferritin AST Total Creatine Kinase Troponin T Total Protein Albumin Triglycerides Cholesterol LDL Cholesterol Direct 03/26/18 03/26/18 03/26/18 07:09 08:20 09:12 WBC RBC Hgb Hct MCV MCH MCHC Lymph % (Auto) [place] % (Auto) [place] # Seg Neutrophils % Seg Neutrophils # POC ABG pH 7.530 H POC ABG pCO2 22.0 L POC ABG pO2 147 H VBG pH Sodium Potassium Chloride Carbon Dioxide BUN Creatinine Glucose POC Glucose 148 H 170 H Hemoglobin A1c Lactic Acid Calcium Phosphorus TIBC Transferrin Ferritin AST Total Creatine Kinase Troponin T Total Protein Albumin Triglycerides Cholesterol LDL Cholesterol Direct 03/26/18 03/26/18 03/26/18 09:15 10:30 10:46 WBC RBC Hgb Hct MCV MCH MCHC Lymph % (Auto) [place] % (Auto) [place] # Seg Neutrophils % Seg Neutrophils # POC ABG pH POC ABG pCO2 POC ABG pO2 VBG pH Sodium 152 H Potassium 3.1 L Chloride 121.4 H Carbon Dioxide BUN 43 H Creatinine 2.6 H Glucose 105 H POC Glucose 177 H 125 H Hemoglobin A1c Lactic Acid Calcium 7.5 L Phosphorus TIBC Transferrin Ferritin AST Total Creatine Kinase Troponin T Total Protein Albumin Triglycerides Cholesterol LDL Cholesterol Direct 03/26/18 03/26/18 03/26/18 14:57 15:35 18:12 WBC RBC Hgb Hct MCV MCH MCHC Lymph % (Auto) [place] % (Auto) [place] # Seg Neutrophils % Seg Neutrophils # POC ABG pH POC ABG pCO2 POC ABG pO2 VBG pH Sodium 148 H Potassium Chloride 117.5 H Carbon Dioxide 18 L BUN 43 H Creatinine 2.5 H Glucose 135 H POC Glucose 159 H 245 H Hemoglobin A1c Lactic Acid Calcium 7.3 L Phosphorus TIBC Transferrin Ferritin AST Total Creatine Kinase Troponin T Total Protein Albumin Triglycerides Cholesterol LDL Cholesterol Direct 03/26/18 03/26/18 03/27/18 19:27 21:42 02:03 WBC RBC Hgb Hct MCV MCH MCHC Lymph % (Auto) [place] % (Auto) [place] # Seg Neutrophils % Seg Neutrophils # POC ABG pH POC ABG pCO2 POC ABG pO2 VBG pH Sodium Potassium Chloride 115.0 H Carbon Dioxide 20 L BUN 42 H Creatinine 2.4 H Glucose 221 H POC Glucose 261 H 254 H Hemoglobin A1c Lactic Acid Calcium 7.1 L Phosphorus TIBC Transferrin Ferritin AST Total Creatine Kinase Troponin T Total Protein Albumin Triglycerides Cholesterol LDL Cholesterol Direct 03/27/18 03/27/18 03/27/18 03:35 03:35 05:20 WBC 12.3 H RBC 3.05 L Hgb 8.3 L Hct 25.3 L D MCV 83 L MCH 27 L MCHC Lymph % (Auto) [place] % (Auto) 8.6 H [place] # 1.1 H Seg Neutrophils % 76.5 H Seg Neutrophils # 9.4 H POC ABG pH POC ABG pCO2 POC ABG pO2 VBG pH Sodium Potassium Chloride 112.6 H Carbon Dioxide BUN 36 H Creatinine 2.1 H Glucose 244 H POC Glucose 263 H Hemoglobin A1c Lactic Acid Calcium 7.1 L Phosphorus TIBC Transferrin Ferritin AST 44 H Total Creatine Kinase Troponin T Total Protein 5.1 L D Albumin 2.1 L Triglycerides Cholesterol LDL Cholesterol Direct 03/27/18 03/27/18 03/27/18 08:22 13:00 14:06 WBC RBC Hgb Hct MCV MCH MCHC Lymph % (Auto) [place] % (Auto) [place] # Seg Neutrophils % Seg Neutrophils # POC ABG pH POC ABG pCO2 34.7 L POC ABG pO2 VBG pH Sodium Potassium Chloride Carbon Dioxide BUN Creatinine Glucose POC Glucose 306 H 233 H Hemoglobin A1c Lactic Acid Calcium Phosphorus TIBC Transferrin Ferritin AST Total Creatine Kinase Troponin T Total Protein Albumin Triglycerides Cholesterol LDL Cholesterol Direct 03/27/18 03/27/18 03/27/18 16:15 18:11 21:44 WBC RBC Hgb Hct MCV MCH MCHC Lymph % (Auto) [place] % (Auto) [place] # Seg Neutrophils % Seg Neutrophils # POC ABG pH POC ABG pCO2 POC ABG pO2 VBG pH Sodium Potassium Chloride Carbon Dioxide BUN Creatinine Glucose POC Glucose 243 H 226 H 224 H Hemoglobin A1c Lactic Acid Calcium Phosphorus TIBC Transferrin Ferritin AST Total Creatine Kinase Troponin T Total Protein Albumin Triglycerides Cholesterol LDL Cholesterol Direct 03/28/18 03/28/18 03/28/18 02:07 04:35 04:35 WBC RBC Hgb Hct MCV MCH MCHC Lymph % (Auto) [place] % (Auto) [place] # Seg Neutrophils % Seg Neutrophils # POC ABG pH POC ABG pCO2 POC ABG pO2 VBG pH Sodium Potassium Chloride Carbon Dioxide BUN Creatinine Glucose POC Glucose 220 H Hemoglobin A1c Lactic Acid Calcium Phosphorus TIBC 115 L Transferrin 94 L Ferritin 412.1 H AST Total Creatine Kinase Troponin T Total Protein Albumin Triglycerides Cholesterol LDL Cholesterol Direct 03/28/18 03/28/18 05:27 09:52 WBC RBC Hgb Hct MCV MCH MCHC Lymph % (Auto) [place] % (Auto) [place] # Seg Neutrophils % Seg Neutrophils # POC ABG pH POC ABG pCO2 POC ABG pO2 VBG pH Sodium Potassium Chloride Carbon Dioxide BUN Creatinine Glucose POC Glucose 280 H 332 H Hemoglobin A1c Lactic Acid Calcium Phosphorus TIBC Transferrin Ferritin AST Total Creatine Kinase Troponin T Total Protein Albumin Triglycerides Cholesterol LDL Cholesterol Direct
[2018-03-28 11:17] LABS: Hematocrit 26.8 % (35.5-45.6); Hemoglobin 9.1 gm/dl (11.8-15.2); Mean Corpuscular HGB Conc 34 % (32-34); Mean Corpuscular Hemoglobin 28 pg (28-32); Mean Corpuscular Volume 83 fl (84-94); Platelet Count 134 K/mm3 (140-440); Red Blood Count 3.22 M/mm3 (3.65-5.03); Red Cell Distribution Width 13.2 % (13.2-15.2)
[2018-03-28 11:41] LABS: BUN/Creatinine Ratio 24; Blood Urea Nitrogen 29 mg/dL (9-20); Hemolysis Index 2
--- NOTE | 2018-03-28 13:02 | XRay Report ---
AP CHEST: HISTORY: Endotracheal tube placement An endotracheal tube has been inserted which terminates 4.5 cm superior to the marleni. AP view of the chest demonstrates a normal mediastinal and cardiac contour with clear lungs and normal bony and soft tissue structures. IMPRESSION: Unremarkable AP chest. Adequate placement of the endotracheal tube.
--- NOTE | 2018-03-28 13:41 | Progress Note ---
Assessment and Plan /DKA (diabetic ketoacidoses) BG was 1026, with pH of 6.9, AG 49 Placed on insulin drip since admission Anion gap has now closed now off insulin drip and placed on NPH every 12 hours along with SSI, A1c 8.9 /Acute respiratory failure s/p ventilator management and support Weaned off from vent, extubated today DuoNeb scheduled, critical care following /Hyperkalemia Potassium was 8.1 on admission Corrected with IV insulin cont IV fluids, monitor BMP /BELKIS (acute kidney injury)secondary to severe dehydration BUN/creatinine on March 16 was 41/1.5, on admission was 43/2.5. IV fluids for now Nephrology consult requested monitor BUN/creatinine / SIRS, likely from DKA We will continue on IV Zosyn pending blood cultures. UA doesn't look like significant for UTI / Metabolic acidosis due to DKA and renal failure Severe Status post IV Sodium bicarbonate /Hypernatremia, we'll change IV fluid to half normal saline, continue to monitor BMP Free water with tube feeding /Hypertension, uncontrolled Placed on Coreg 12.5 twice a day, also placed on clonidine patch for now /DVT prophylaxis Heparin subcutaneously 5000 units every 8 hours Brief History: Patient with Hx of IDDM on insulin pump and noncompliant came to the ER for Nausea Vomiting and abdominal pain of 2 days duration. Patient left his insulin pump at work and was not taking any insulin for 2 days. in the ER his blood sugars noted to be about 1000 and Patient was obtunded and lethargic--- hence intubated in the ER for protection of airway. Placed on insulin drip and admitted to ICU. Radiological data: CT head: Evidence of chronic changes and gliosis Chest x-ray: No infiltrates or pneumothorax, ET tube in place Abdomen x-ray: No acute process NG tube in place Hospitalist Physical exam: GENERAL: -[place] male lying on bed appeared to be in no discomfort. HEENT: Normocephalic. Atraumatic. No conjunctival congestion or icterus. Patient has moist mucous membranes. NECK: Supple. Trachea midline. CHEST/LUNGS: Coarse BS auscultated bilaterally, on nasal canula now HEART/CARDIOVASCULAR: Regular in rate and rhythm. S1 and S2 positive. ABDOMEN: Abdomen is soft, nontender. Patient has normal bowel sounds. SKIN: There is no rash. Warm and dry. NEURO: follows commend, no focal deficit MUSCULOSKELETAL: No joint effusion or tenderness. EXTRIMITY: No edema, no cyanosis or clubbing. PSYCH: cooperative Subjective Date of service: 03/28/18 Principal diagnosis: Acute hypoxic respiratory failure, DKA, BELKIS, Acute encephalopathy Interval history: Patient seen and examined. Medical records and medication list reviewed. No acute event overnight noted by the RN. Patient patient extubated now, placed on nasal cannula and frequent suction Discussed plan of care at bedside with RN Objective - Constitutional Vitals: Vital Signs - 12hr 03/28/18 03/28/18 03/28/18 02:00 02:31 03:00 Temperature Pulse Rate 91 H 135 H 87 Respiratory 16 34 H 17 Rate Blood Pressure 170/74 170/74 173/86 O2 Sat by Pulse 100 66 L 100 Oximetry 03/28/18 03/28/18 03/28/18 03:08 03:27 03:31 Temperature 99.6 F Pulse Rate 85 83 Respiratory 16 Rate Blood Pressure 173/86 170/74 O2 Sat by Pulse 100 100 Oximetry 03/28/18 03/28/18 03/28/18 03:41 03:51 04:00 Temperature Pulse Rate 102 H 99 H 109 H Respiratory 19 19 16 Rate Blood Pressure 170/74 170/74 185/82 O2 Sat by Pulse 100 100 100 Oximetry 03/28/18 03/28/18 03/28/18 04:11 04:31 05:00 Temperature Pulse Rate 97 H 98 H 102 H Respiratory 20 17 17 Rate Blood Pressure 167/79 167/79 174/81 O2 Sat by Pulse 100 100 100 Oximetry 03/28/18 03/28/18 03/28/18 05:31 06:00 06:31 Temperature Pulse Rate 97 H 90 91 H Respiratory 16 18 16 Rate Blood Pressure 174/81 157/81 157/81 O2 Sat by Pulse 100 100 100 Oximetry 03/28/18 03/28/18 03/28/18 07:00 08:00 08:35 Temperature 98.4 F Pulse Rate 88 94 H Respiratory 18 18 Rate Blood Pressure 158/82 171/85 O2 Sat by Pulse 100 100 Oximetry 03/28/18 12:00 Temperature 98.2 F Pulse Rate Respiratory Rate Blood Pressure O2 Sat by Pulse Oximetry - Labs CBC & Chem 7: 03/29/18 05:45 03/29/18 04:23 Labs: Abnormal lab results 03/27/18 03/27/18 03/27/18 Range/Units 13:00 14:06 16:15 RBC (3.65-5.03) M/mm3 Hgb (11.8-15.2) gm/dl Hct (35.5-45.6) % MCV (84-94) fl Plt Count (140-440) K/mm3 POC ABG pCO2 34.7 L (35-45) Sodium (137-145) mmol/L BUN (9-20) mg/dL Glucose (75-100) mg/dL POC Glucose 233 H 243 H (70-105) Calcium (8.4-10.2) mg/dL TIBC (250-450) mcg/dL Transferrin (180-329) mg/dl Ferritin (13.0-400.0) ng/mL 03/27/18 03/27/18 03/28/18 Range/Units 18:11 21:44 02:07 RBC (3.65-5.03) M/mm3 Hgb (11.8-15.2) gm/dl Hct (35.5-45.6) % MCV (84-94) fl Plt Count (140-440) K/mm3 POC ABG pCO2 (35-45) Sodium (137-145) mmol/L BUN (9-20) mg/dL Glucose (75-100) mg/dL POC Glucose 226 H 224 H 220 H (70-105) Calcium (8.4-10.2) mg/dL TIBC (250-450) mcg/dL Transferrin (180-329) mg/dl Ferritin (13.0-400.0) ng/mL 03/28/18 03/28/18 03/28/18 Range/Units 04:35 04:35 05:27 RBC (3.65-5.03) M/mm3 Hgb (11.8-15.2) gm/dl Hct (35.5-45.6) % MCV (84-94) fl Plt Count (140-440) K/mm3 POC ABG pCO2 (35-45) Sodium (137-145) mmol/L BUN (9-20) mg/dL Glucose (75-100) mg/dL POC Glucose 280 H (70-105) Calcium (8.4-10.2) mg/dL TIBC 115 L (250-450) mcg/dL Transferrin 94 L (180-329) mg/dl Ferritin 412.1 H (13.0-400.0) ng/mL 03/28/18 03/28/18 03/28/18 Range/Units 09:52 10:59 10:59 RBC 3.22 L (3.65-5.03) M/mm3 Hgb 9.1 L (11.8-15.2) gm/dl Hct 26.8 L (35.5-45.6) % MCV 83 L (84-94) fl Plt Count 134 L (140-440) K/mm3 POC ABG pCO2 (35-45) Sodium 136 L (137-145) mmol/L BUN 29 H (9-20) mg/dL Glucose 310 H (75-100) mg/dL POC Glucose 332 H (70-105) Calcium 7.0 L (8.4-10.2) mg/dL TIBC (250-450) mcg/dL Transferrin (180-329) mg/dl Ferritin (13.0-400.0) ng/mL
[2018-03-28] MEDS: PROzac PO SCH (19:48)
[2018-03-28] MEDS: MINIPRESS PO SCH ×2 (19:48→21:21)
[2018-03-28] MEDS: PEPCID PO SCH ×2 (19:48→21:21)
[2018-03-28] MEDS: BABY ASPIRIN PO SCH (19:48)
[2018-03-28] MEDS: COREG PO SCH ×2 (19:49→21:22)
[2018-03-28] MEDS: SODIUM CHLORIDE FLUSH SYRINGE 10 ML IV SCH ×2 (19:58→21:23)
[2018-03-28] MEDS: PERCOCET 5/325 PO PRN (22:53)
[2018-03-29] MEDS: HumuLIN R SUB-Q SCH ×5 (02:07→17:18)
[2018-03-29] MEDS: NACL 0.45% 1000 ML 1,000 ML IV SCH (05:07)
[2018-03-29 05:08] LABS: BUN/Creatinine Ratio 21; Blood Urea Nitrogen 27 mg/dL (9-20); Calcium 7.1 mg/dL (8.4-10.2); Hemolysis Index 158
[2018-03-29] MEDS: APRESOLINE IV PRN (05:08)
[2018-03-29] MEDS: PERCOCET 5/325 PO PRN (05:09)
[2018-03-29] MEDS: HEPARIN SUB-Q SCH ×2 (05:10→13:45)
[2018-03-29 05:59] LABS: Basophils % (Auto) 0.2 % (0.0-1.8); Eosinophils # (Auto) 0.1 K/mm3 (0.0-0.4); Eosinophils % (Auto) 0.8 % (0.0-4.3); Hematocrit 25.8 % (35.5-45.6); Hemoglobin 8.8 gm/dl (11.8-15.2); Lymphocytes % (Auto) 10.8 % (13.4-35.0); Mean Corpuscular HGB Conc 34 % (32-34); Mean Corpuscular Hemoglobin 28 pg (28-32); Mean Corpuscular Volume 82 fl (84-94); Monocytes # (Auto) 0.8 K/mm3 (0.0-0.8); Monocytes % (Auto) 9.1 % (0.0-7.3); Platelet Count 132 K/mm3 (140-440); Red Blood Count 3.13 M/mm3 (3.65-5.03); Red Cell Distribution Width 12.7 % (13.2-15.2)
[2018-03-29] MEDS: MINIPRESS PO SCH (11:09)
[2018-03-29] MEDS: COREG PO SCH (11:10)
[2018-03-29] MEDS: BABY ASPIRIN PO SCH (11:10)
[2018-03-29] MEDS: PEPCID PO SCH (11:11)
[2018-03-29] MEDS: PROzac PO SCH (11:11)
[2018-03-29] MEDS: SODIUM CHLORIDE FLUSH SYRINGE 10 ML IV SCH (11:15)
--- NOTE | 2018-03-29 13:24 | Progress Note ---
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: -resolved -Renally dose meds -Strict intake and output -Obtain daily weight -Beard Catheter: Yes Acute Respiratory Failure: -extubated -Pulmonology on board DKA: -Improving -Off insulin drip -On insulin -On DKA protocol Essential Hypertension: -On clonidine patch and coreg Subjective Date of service: 03/29/18 Principal diagnosis: Acute hypoxic respiratory failure, DKA, BELKIS, Acute encephalopathy Interval history: extubated, feels weak but comfortable Objective - Vital Signs Vital signs: Vital Signs - 12hr 03/29/18 03/29/18 03/29/18 01:30 02:00 02:30 Temperature Pulse Rate 86 85 83 Respiratory 27 H 26 H 30 H Rate Blood Pressure 148/71 158/72 158/72 O2 Sat by Pulse 95 96 96 Oximetry 03/29/18 03/29/18 03/29/18 03:00 03:30 03:52 Temperature 99.7 F H Pulse Rate 85 91 H Respiratory 28 H 28 H Rate Blood Pressure 161/75 161/75 O2 Sat by Pulse 96 97 Oximetry 03/29/18 03/29/18 03/29/18 04:00 04:30 05:00 Temperature Pulse Rate 85 85 87 Respiratory 18 19 23 Rate Blood Pressure 161/75 170/74 176/77 O2 Sat by Pulse 98 97 95 Oximetry 03/29/18 03/29/18 03/29/18 05:08 05:30 06:00 Temperature Pulse Rate 84 96 H 101 H Respiratory 23 22 Rate Blood Pressure 176/77 170/74 156/71 O2 Sat by Pulse 96 97 Oximetry 03/29/18 03/29/18 03/29/18 06:30 07:00 07:30 Temperature Pulse Rate 102 H 101 H 100 H Respiratory 18 30 H 26 H Rate Blood Pressure 156/71 147/65 147/65 O2 Sat by Pulse 97 96 96 Oximetry 03/29/18 03/29/18 03/29/18 08:00 08:30 08:58 Temperature 99.2 F Pulse Rate 96 H 90 Respiratory 18 29 H Rate Blood Pressure 133/62 133/62 O2 Sat by Pulse 96 97 98 Oximetry 03/29/18 03/29/18 03/29/18 09:00 09:31 10:00 Temperature Pulse Rate 88 90 93 H Respiratory 21 19 17 Rate Blood Pressure 133/62 160/79 161/69 O2 Sat by Pulse 97 98 98 Oximetry 03/29/18 03/29/18 03/29/18 10:31 11:00 11:09 Temperature Pulse Rate 89 92 H 94 H Respiratory 21 20 Rate Blood Pressure 161/69 173/73 173/73 O2 Sat by Pulse 99 100 Oximetry 03/29/18 03/29/18 03/29/18 11:10 11:31 12:00 Temperature 99.2 F Pulse Rate 94 H 91 H 89 Respiratory 23 17 Rate Blood Pressure 173/73 173/73 146/70 O2 Sat by Pulse 98 99 Oximetry 03/29/18 03/29/18 12:31 13:00 Temperature Pulse Rate 89 92 H Respiratory 23 19 Rate Blood Pressure 146/70 145/71 O2 Sat by Pulse 97 99 Oximetry - General Appearance General appearance: well-developed, well-nourished EENT: ATNC, PERRL, mucous membranes moist Neck: no JVD, no carotid bruit Respiratory: Present: Clear to Ascultation. Absent: Rales, Ronchi Cardiology: regular, S1S2 Gastrointestinal: normoactive bowel sounds, no tenderness, no distended Integumentary: no rash, warm and dry Neurologic: no focal deficit, no asterixis Musculoskeletal: other (no edema in BLE) Psychiatric: cooperative - Lab 03/29/18 05:45 03/29/18 04:23 Most recent lab results Calcium 7.1 mg/dL (8.4-10.2) L 03/29/18 04:23 Phosphorus 2.80 mg/dL (2.5-4.5) 03/29/18 04:23 Magnesium 2.20 mg/dL (1.7-2.3) 03/25/18 18:55
--- NOTE | 2018-03-29 13:54 | Progress Note ---
Assessment and Plan Acute respiratory failure, on mechanical ventilator. Sepsis syndrome. Diabetic ketoacidosis. Severe metabolic acidosis. Acute on chronic encephalopathy, rule out cerebrovascular accident. Medication noncompliance. Anemia. Hyperkalemia. Acute kidney injury. - supplemental oxygen as needed to keep O2 Sats > 90% - Continue empiric antibiotics for now, follow cultures then de-escalate based on SALOME - ST evaluation and advance diet - continue VTE prophylaxis - continue Stress ulcer prophylaxis - Agitation and analgesia - Avoid delirium, avoid benzodiazepines - Avoid nephrotoxic agents and adjust all medications for CrCl/GFR - CXR prn - Mobility, PT/OT consult placed - continue other care per attending / other consultants ..... improved ...35' Subjective Date of service: 03/29/18 Principal diagnosis: Acute hypoxic respiratory failure, DKA, BELKIS, Acute encephalopathy Interval history: Patient is seen today for: Acute hypoxic respiratory failure, DKA, BELKIS, Acute encephalopathy Seen and examined at bedside; 24hour events reviewed; nursing and respiratory care staff consulted; no adverse overnight events reported to me; resting in bed ; denies any chest pains; doing well post extubation; No N/V/F/C Objective Vital Signs - 12hr 03/29/18 03/29/18 03/29/18 02:00 02:30 03:00 Temperature Pulse Rate 85 83 85 Respiratory 26 H 30 H 28 H Rate Blood Pressure 158/72 158/72 161/75 O2 Sat by Pulse 96 96 96 Oximetry 03/29/18 03/29/18 03/29/18 03:30 03:52 04:00 Temperature 99.7 F H Pulse Rate 91 H 85 Respiratory 28 H 18 Rate Blood Pressure 161/75 161/75 O2 Sat by Pulse 97 98 Oximetry 03/29/18 03/29/18 03/29/18 04:30 05:00 05:08 Temperature Pulse Rate 85 87 84 Respiratory 19 23 Rate Blood Pressure 170/74 176/77 176/77 O2 Sat by Pulse 97 95 Oximetry 03/29/18 03/29/18 03/29/18 05:30 06:00 06:30 Temperature Pulse Rate 96 H 101 H 102 H Respiratory 23 22 18 Rate Blood Pressure 170/74 156/71 156/71 O2 Sat by Pulse 96 97 97 Oximetry 03/29/18 03/29/18 03/29/18 07:00 07:30 08:00 Temperature 99.2 F Pulse Rate 101 H 100 H 96 H Respiratory 30 H 26 H 18 Rate Blood Pressure 147/65 147/65 133/62 O2 Sat by Pulse 96 96 96 Oximetry 03/29/18 03/29/18 03/29/18 08:30 08:58 09:00 Temperature Pulse Rate 90 88 Respiratory 29 H 21 Rate Blood Pressure 133/62 133/62 O2 Sat by Pulse 97 98 97 Oximetry 03/29/18 03/29/18 03/29/18 09:31 10:00 10:31 Temperature Pulse Rate 90 93 H 89 Respiratory 19 17 21 Rate Blood Pressure 160/79 161/69 161/69 O2 Sat by Pulse 98 98 99 Oximetry 03/29/18 03/29/18 03/29/18 11:00 11:09 11:10 Temperature Pulse Rate 92 H 94 H 94 H Respiratory 20 Rate Blood Pressure 173/73 173/73 173/73 O2 Sat by Pulse 100 Oximetry 03/29/18 03/29/18 03/29/18 11:31 12:00 12:31 Temperature 99.2 F Pulse Rate 91 H 89 89 Respiratory 23 17 23 Rate Blood Pressure 173/73 146/70 146/70 O2 Sat by Pulse 98 99 97 Oximetry 03/29/18 13:00 Temperature Pulse Rate 92 H Respiratory 19 Rate Blood Pressure 145/71 O2 Sat by Pulse 99 Oximetry Constitutional: appears uncomfortable, other (middle aged AAM, normocephalic and atraumatic) Eyes: non-icteric ENT: oropharynx moist, other (mallampatti 2) Neck: supple, no lymphadenopathy, no JVD, other (no thyromegaly) Effort: mildly labored Ascultation: Bilateral: diminished breath sounds, rhonchi (posterior base) Percussion: Bilateral: not dull Cardiovascular: regular rate and rhythm, other (No R/M) Gastrointestinal: normoactive bowel sounds, soft, non-tender, non-distended, other ( No HSM) Integumentary: normal Extremities: no cyanosis, pulses normal, no ischemia or petechiae, edema (to hands) Neurologic: normal mental status, non-focal exam (grossly), pupils equal and round, CN II-XII normal, motor strength normal and Psychiatric: mood appropriate, affect normal CBC and BMP: 04/03/18 05:46 04/03/18 05:46 ABG, PT/INR, D-dimer: ABG POC ABG pH 7.405 (7.35-7.45) 03/28/18 03:49 POC ABG pCO2 38.6 (35-45) 03/28/18 03:49 POC ABG pO2 102 (80-105) 03/28/18 03:49 POC ABG HCO3 24.2 03/28/18 03:49 POC ABG Total CO2 25 03/28/18 03:49 POC ABG O2 Sat 98 03/28/18 03:49 Abnormal lab findings: Abnormal Labs 03/25/18 03/25/18 03/25/18 13:48 14:00 14:00 WBC 15.3 H RBC Hgb 10.5 L Hct MCV 95 H MCH 27 L MCHC 28 L RDW Plt Count Lymph % (Auto) 8.5 L [place] % (Auto) Lymph # [place] # Seg Neutrophils % 86.4 H Seg Neutrophils # 13.2 H POC ABG pH POC ABG pCO2 POC ABG pO2 VBG pH Sodium 132 L Potassium 8.1 H* Chloride 87.8 L Carbon Dioxide 3 L* BUN 43 H Creatinine 2.6 H Glucose 1026 H* POC Glucose > 500 H Hemoglobin A1c Lactic Acid Calcium Phosphorus TIBC Transferrin Ferritin AST Total Creatine Kinase Troponin T Total Protein Albumin Triglycerides Cholesterol LDL Cholesterol Direct 03/25/18 03/25/18 03/25/18 14:00 14:08 14:29 WBC RBC Hgb Hct MCV MCH MCHC RDW Plt Count Lymph % (Auto) [place] % (Auto) Lymph # [place] # Seg Neutrophils % Seg Neutrophils # POC ABG pH 6.952 L POC ABG pCO2 25.8 L POC ABG pO2 559 H VBG pH Sodium Potassium Chloride Carbon Dioxide BUN Creatinine Glucose POC Glucose Hemoglobin A1c Lactic Acid 10.10 H* Calcium Phosphorus 8.70 H TIBC Transferrin Ferritin AST Total Creatine Kinase Troponin T Total Protein Albumin 2.6 L Triglycerides Cholesterol LDL Cholesterol Direct 03/25/18 03/25/18 03/25/18 14:41 15:40 15:40 WBC RBC Hgb Hct MCV MCH MCHC RDW Plt Count Lymph % (Auto) [place] % (Auto) Lymph # [place] # Seg Neutrophils % Seg Neutrophils # POC ABG pH POC ABG pCO2 POC ABG pO2 VBG pH 7.000 L* Sodium Potassium 6.7 H* Chloride 97.5 L Carbon Dioxide 5 L* BUN 43 H Creatinine 2.5 H Glucose 893 H* POC Glucose Hemoglobin A1c Lactic Acid Calcium 7.5 L Phosphorus 9.10 H TIBC Transferrin Ferritin AST Total Creatine Kinase Troponin T Total Protein Albumin Triglycerides Cholesterol LDL Cholesterol Direct 03/25/18 03/25/18 03/25/18 18:09 18:12 18:55 WBC RBC Hgb Hct MCV MCH MCHC RDW Plt Count Lymph % (Auto) [place] % (Auto) Lymph # [place] # Seg Neutrophils % Seg Neutrophils # POC ABG pH POC ABG pCO2 POC ABG pO2 VBG pH Sodium 133 L Potassium 5.7 H Chloride 93.1 L Carbon Dioxide 10 L BUN 43 H Creatinine 2.5 H Glucose 786 H* POC Glucose Hemoglobin A1c 8.9 H Lactic Acid Calcium 7.8 L Phosphorus TIBC Transferrin Ferritin AST Total Creatine Kinase 226 H Troponin T 0.033 H Total Protein Albumin Triglycerides 185 H Cholesterol 215 H LDL Cholesterol Direct 144 H 03/25/18 03/25/18 03/25/18 18:55 21:00 21:03 WBC RBC Hgb Hct MCV MCH MCHC RDW Plt Count Lymph % (Auto) [place] % (Auto) Lymph # [place] # Seg Neutrophils % Seg Neutrophils # POC ABG pH POC ABG pCO2 POC ABG pO2 VBG pH Sodium 136 L Potassium 6.7 H* Chloride Carbon Dioxide 7 L* BUN 45 H Creatinine 2.6 H Glucose 879 H* POC Glucose > 500 H Hemoglobin A1c Lactic Acid Calcium 7.8 L Phosphorus 9.20 H TIBC Transferrin Ferritin AST Total Creatine Kinase Troponin T Total Protein Albumin Triglycerides Cholesterol LDL Cholesterol Direct 03/25/18 03/25/18 03/25/18 21:39 22:06 23:20 WBC RBC Hgb Hct MCV MCH MCHC RDW Plt Count Lymph % (Auto) [place] % (Auto) Lymph # [place] # Seg Neutrophils % Seg Neutrophils # POC ABG pH 7.272 L POC ABG pCO2 14.2 L POC ABG pO2 263 H VBG pH Sodium Potassium Chloride Carbon Dioxide 7 L* BUN 47 H Creatinine 2.9 H Glucose 702 H* POC Glucose > 500 H Hemoglobin A1c Lactic Acid Calcium 7.6 L Phosphorus TIBC Transferrin Ferritin AST Total Creatine Kinase Troponin T Total Protein Albumin Triglycerides Cholesterol LDL Cholesterol Direct 05/28/18 05/29/18 05/29/18 23:20 00:17 01:08 WBC RBC Hgb Hct MCV MCH MCHC RDW Plt Count Lymph % (Auto) [place] % (Auto) Lymph # [place] # Seg Neutrophils % Seg Neutrophils # POC ABG pH POC ABG pCO2 POC ABG pO2 VBG pH Sodium Potassium Chloride Carbon Dioxide BUN Creatinine Glucose POC Glucose > 500 H 447 H 484 H Hemoglobin A1c Lactic Acid Calcium Phosphorus TIBC Transferrin Ferritin AST Total Creatine Kinase Troponin T Total Protein Albumin Triglycerides Cholesterol LDL Cholesterol Direct 03/26/18 03/26/18 03/26/18 02:31 03:07 04:09 WBC RBC Hgb Hct MCV MCH MCHC RDW Plt Count Lymph % (Auto) [place] % (Auto) Lymph # [place] # Seg Neutrophils % Seg Neutrophils # POC ABG pH POC ABG pCO2 POC ABG pO2 VBG pH Sodium Potassium Chloride Carbon Dioxide BUN Creatinine Glucose POC Glucose > 500 H 467 H 361 H Hemoglobin A1c Lactic Acid Calcium Phosphorus TIBC Transferrin Ferritin AST Total Creatine Kinase Troponin T Total Protein Albumin Triglycerides Cholesterol LDL Cholesterol Direct 03/26/18 03/26/18 03/26/18 04:25 05:24 06:19 WBC RBC Hgb Hct MCV MCH MCHC RDW Plt Count Lymph % (Auto) [place] % (Auto) Lymph # [place] # Seg Neutrophils % Seg Neutrophils # POC ABG pH POC ABG pCO2 POC ABG pO2 VBG pH Sodium 150 H D Potassium 3.4 L D Chloride 118.3 H Carbon Dioxide 16 L D BUN 45 H Creatinine 2.7 H Glucose 278 H POC Glucose 306 H 188 H Hemoglobin A1c Lactic Acid Calcium 7.7 L Phosphorus TIBC Transferrin Ferritin AST Total Creatine Kinase Troponin T Total Protein Albumin Triglycerides Cholesterol LDL Cholesterol Direct 03/26/18 03/26/18 03/26/18 07:09 08:20 09:12 WBC RBC Hgb Hct MCV MCH MCHC RDW Plt Count Lymph % (Auto) [place] % (Auto) Lymph # [place] # Seg Neutrophils % Seg Neutrophils # POC ABG pH 7.530 H POC ABG pCO2 22.0 L POC ABG pO2 147 H VBG pH Sodium Potassium Chloride Carbon Dioxide BUN Creatinine Glucose POC Glucose 148 H 170 H Hemoglobin A1c Lactic Acid Calcium Phosphorus TIBC Transferrin Ferritin AST Total Creatine Kinase Troponin T Total Protein Albumin Triglycerides Cholesterol LDL Cholesterol Direct 03/26/18 03/26/18 03/26/18 09:15 10:30 10:46 WBC RBC Hgb Hct MCV MCH MCHC RDW Plt Count Lymph % (Auto) [place] % (Auto) Lymph # [place] # Seg Neutrophils % Seg Neutrophils # POC ABG pH POC ABG pCO2 POC ABG pO2 VBG pH Sodium 152 H Potassium 3.1 L Chloride 121.4 H Carbon Dioxide BUN 43 H Creatinine 2.6 H Glucose 105 H POC Glucose 177 H 125 H Hemoglobin A1c Lactic Acid Calcium 7.5 L Phosphorus TIBC Transferrin Ferritin AST Total Creatine Kinase Troponin T Total Protein Albumin Triglycerides Cholesterol LDL Cholesterol Direct 03/26/18 03/26/18 03/26/18 14:57 15:35 18:12 WBC RBC Hgb Hct MCV MCH MCHC RDW Plt Count Lymph % (Auto) [place] % (Auto) Lymph # [place] # Seg Neutrophils % Seg Neutrophils # POC ABG pH POC ABG pCO2 POC ABG pO2 VBG pH Sodium 148 H Potassium Chloride 117.5 H Carbon Dioxide 18 L BUN 43 H Creatinine 2.5 H Glucose 135 H POC Glucose 159 H 245 H Hemoglobin A1c Lactic Acid Calcium 7.3 L Phosphorus TIBC Transferrin Ferritin AST Total Creatine Kinase Troponin T Total Protein Albumin Triglycerides Cholesterol LDL Cholesterol Direct 03/26/18 03/26/18 03/27/18 19:27 21:42 02:03 WBC RBC Hgb Hct MCV MCH MCHC RDW Plt Count Lymph % (Auto) [place] % (Auto) Lymph # [place] # Seg Neutrophils % Seg Neutrophils # POC ABG pH POC ABG pCO2 POC ABG pO2 VBG pH Sodium Potassium Chloride 115.0 H Carbon Dioxide 20 L BUN 42 H Creatinine 2.4 H Glucose 221 H POC Glucose 261 H 254 H Hemoglobin A1c Lactic Acid Calcium 7.1 L Phosphorus TIBC Transferrin Ferritin AST Total Creatine Kinase Troponin T Total Protein Albumin Triglycerides Cholesterol LDL Cholesterol Direct 03/27/18 03/27/18 03/27/18 03:35 03:35 05:20 WBC 12.3 H RBC 3.05 L Hgb 8.3 L Hct 25.3 L D MCV 83 L MCH 27 L MCHC RDW Plt Count Lymph % (Auto) [place] % (Auto) 8.6 H Lymph # [place] # 1.1 H Seg Neutrophils % 76.5 H Seg Neutrophils # 9.4 H POC ABG pH POC ABG pCO2 POC ABG pO2 VBG pH Sodium Potassium Chloride 112.6 H Carbon Dioxide BUN 36 H Creatinine 2.1 H Glucose 244 H POC Glucose 263 H Hemoglobin A1c Lactic Acid Calcium 7.1 L Phosphorus TIBC Transferrin Ferritin AST 44 H Total Creatine Kinase Troponin T Total Protein 5.1 L D Albumin 2.1 L Triglycerides Cholesterol LDL Cholesterol Direct 03/27/18 03/27/18 03/27/18 08:22 13:00 14:06 WBC RBC Hgb Hct MCV MCH MCHC RDW Plt Count Lymph % (Auto) [place] % (Auto) Lymph # [place] # Seg Neutrophils % Seg Neutrophils # POC ABG pH POC ABG pCO2 34.7 L POC ABG pO2 VBG pH Sodium Potassium Chloride Carbon Dioxide BUN Creatinine Glucose POC Glucose 306 H 233 H Hemoglobin A1c Lactic Acid Calcium Phosphorus TIBC Transferrin Ferritin AST Total Creatine Kinase Troponin T Total Protein Albumin Triglycerides Cholesterol LDL Cholesterol Direct 03/27/18 03/27/18 03/27/18 16:15 18:11 21:44 WBC RBC Hgb Hct MCV MCH MCHC RDW Plt Count Lymph % (Auto) [place] % (Auto) Lymph # [place] # Seg Neutrophils % Seg Neutrophils # POC ABG pH POC ABG pCO2 POC ABG pO2 VBG pH Sodium Potassium Chloride Carbon Dioxide BUN Creatinine Glucose POC Glucose 243 H 226 H 224 H Hemoglobin A1c Lactic Acid Calcium Phosphorus TIBC Transferrin Ferritin AST Total Creatine Kinase Troponin T Total Protein Albumin Triglycerides Cholesterol LDL Cholesterol Direct 03/28/18 03/28/18 03/28/18 02:07 04:35 04:35 WBC RBC Hgb Hct MCV MCH MCHC RDW Plt Count Lymph % (Auto) [place] % (Auto) Lymph # [place] # Seg Neutrophils % Seg Neutrophils # POC ABG pH POC ABG pCO2 POC ABG pO2 VBG pH Sodium Potassium Chloride Carbon Dioxide BUN Creatinine Glucose POC Glucose 220 H Hemoglobin A1c Lactic Acid Calcium Phosphorus TIBC 115 L Transferrin 94 L Ferritin 412.1 H AST Total Creatine Kinase Troponin T Total Protein Albumin Triglycerides Cholesterol LDL Cholesterol Direct 03/28/18 03/28/18 03/28/18 05:27 09:52 10:59 WBC RBC 3.22 L Hgb 9.1 L Hct 26.8 L MCV 83 L MCH MCHC RDW Plt Count 134 L Lymph % (Auto) [place] % (Auto) Lymph # [place] # Seg Neutrophils % Seg Neutrophils # POC ABG pH POC ABG pCO2 POC ABG pO2 VBG pH Sodium Potassium Chloride Carbon Dioxide BUN Creatinine Glucose POC Glucose 280 H 332 H Hemoglobin A1c Lactic Acid Calcium Phosphorus TIBC Transferrin Ferritin AST Total Creatine Kinase Troponin T Total Protein Albumin Triglycerides Cholesterol LDL Cholesterol Direct 03/28/18 03/28/18 03/28/18 10:59 14:39 17:47 WBC RBC Hgb Hct MCV MCH MCHC RDW Plt Count Lymph % (Auto) [place] % (Auto) Lymph # [place] # Seg Neutrophils % Seg Neutrophils # POC ABG pH POC ABG pCO2 POC ABG pO2 VBG pH Sodium 136 L Potassium Chloride Carbon Dioxide BUN 29 H Creatinine Glucose 310 H POC Glucose 250 H 132 H Hemoglobin A1c Lactic Acid Calcium 7.0 L Phosphorus TIBC Transferrin Ferritin AST Total Creatine Kinase Troponin T Total Protein Albumin Triglycerides Cholesterol LDL Cholesterol Direct 03/29/18 03/29/18 03/29/18 01:49 04:23 05:45 WBC RBC 3.13 L Hgb 8.8 L Hct 25.8 L MCV 82 L MCH MCHC RDW 12.7 L Plt Count 132 L Lymph % (Auto) 10.8 L [place] % (Auto) 9.1 H Lymph # 1.0 L [place] # Seg Neutrophils % 79.1 H Seg Neutrophils # POC ABG pH POC ABG pCO2 POC ABG pO2 VBG pH Sodium 134 L Potassium Chloride Carbon Dioxide BUN 27 H Creatinine Glucose 172 H POC Glucose 122 H Hemoglobin A1c Lactic Acid Calcium 7.1 L Phosphorus TIBC Transferrin Ferritin AST Total Creatine Kinase Troponin T Total Protein Albumin Triglycerides Cholesterol LDL Cholesterol Direct 03/29/18 03/29/18 05:57 09:19 WBC RBC Hgb Hct MCV MCH MCHC RDW Plt Count Lymph % (Auto) [place] % (Auto) Lymph # [place] # Seg Neutrophils % Seg Neutrophils # POC ABG pH POC ABG pCO2 POC ABG pO2 VBG pH Sodium Potassium Chloride Carbon Dioxide BUN Creatinine Glucose POC Glucose 224 H 316 H Hemoglobin A1c Lactic Acid Calcium Phosphorus TIBC Transferrin Ferritin AST Total Creatine Kinase Troponin T Total Protein Albumin Triglycerides Cholesterol LDL Cholesterol Direct Allied health notes reviewed: nursing
--- NOTE | 2018-03-29 14:11 | Progress Note ---
Assessment and Plan /DKA (diabetic ketoacidoses) BG was 1026, with pH of 6.9, AG 49 Placed on insulin drip since admission Anion gap has now closed now off insulin drip and placed on NPH every 12 hours along with SSI, A1c 8.9 Start on consistent carb diet /Acute respiratory failure s/p ventilator management and support Weaned off from vent, extubated 03/28 DuoNeb scheduled, critical care following transfer out to [facility] today /Hyperkalemia Potassium was 8.1 on admission Corrected with IV insulin cont IV fluids, monitor BMP /BELKIS (acute kidney injury)secondary to severe dehydration BUN/creatinine on March 16 was 41/1.5, on admission was 43/2.5. IV fluids for now Nephrology consult requested monitor BUN/creatinine / SIRS, likely from DKA We will continue on IV Zosyn pending blood cultures. UA doesn't look like significant for UTI / Metabolic acidosis due to DKA and renal failure Severe Status post IV Sodium bicarbonate /Hypernatremia, we'll change IV fluid to half normal saline, continue to monitor BMP Free water with tube feeding /Hypertension, uncontrolled Placed on Coreg 12.5 twice a day, also placed on clonidine patch for now /DVT prophylaxis Heparin subcutaneously 5000 units every 8 hours Brief History: Patient with Hx of IDDM on insulin pump and noncompliant came to the ER for Nausea Vomiting and abdominal pain of 2 days duration. Patient left his insulin pump at work and was not taking any insulin for 2 days. in the ER his blood sugars noted to be about 1000 and Patient was obtunded and lethargic--- hence intubated in the ER for protection of airway. Placed on insulin drip and admitted to ICU. Radiological data: CT head: Evidence of chronic changes and gliosis Chest x-ray: No infiltrates or pneumothorax, ET tube in place Abdomen x-ray: No acute process NG tube in place Hospitalist Physical exam: GENERAL: -Marshallese male lying on bed appeared to be in no discomfort. HEENT: Normocephalic. Atraumatic. No conjunctival congestion or icterus. Patient has moist mucous membranes. NECK: Supple. Trachea midline. CHEST/LUNGS: Coarse BS auscultated bilaterally, on nasal canula now HEART/CARDIOVASCULAR: Regular in rate and rhythm. S1 and S2 positive. ABDOMEN: Abdomen is soft, nontender. Patient has normal bowel sounds. SKIN: There is no rash. Warm and dry. NEURO: follows commend, no focal deficit MUSCULOSKELETAL: No joint effusion or tenderness. EXTRIMITY: No edema, no cyanosis or clubbing. PSYCH: cooperative Subjective Date of service: 03/29/18 Principal diagnosis: Acute hypoxic respiratory failure, DKA, BELKIS, Acute encephalopathy Interval history: Patient seen and examined. Medical records and medication list reviewed. No acute event overnight noted by the RN. s/p extubated yesterday, placed on nasal cannula and frequent suction Passed swallow eval today, transfer to tele Discussed plan of care at bedside with RN Objective - Constitutional Vitals: Vital Signs - 12hr 03/29/18 03/29/18 03/29/18 02:30 03:00 03:30 Temperature Pulse Rate 83 85 91 H Respiratory 30 H 28 H 28 H Rate Blood Pressure 158/72 161/75 161/75 O2 Sat by Pulse 96 96 97 Oximetry 03/29/18 03/29/18 03/29/18 03:52 04:00 04:30 Temperature 99.7 F H Pulse Rate 85 85 Respiratory 18 19 Rate Blood Pressure 161/75 170/74 O2 Sat by Pulse 98 97 Oximetry 03/29/18 03/29/18 03/29/18 05:00 05:08 05:30 Temperature Pulse Rate 87 84 96 H Respiratory 23 23 Rate Blood Pressure 176/77 176/77 170/74 O2 Sat by Pulse 95 96 Oximetry 03/29/18 03/29/18 03/29/18 06:00 06:30 07:00 Temperature Pulse Rate 101 H 102 H 101 H Respiratory 22 18 30 H Rate Blood Pressure 156/71 156/71 147/65 O2 Sat by Pulse 97 97 96 Oximetry 03/29/18 03/29/18 03/29/18 07:30 08:00 08:30 Temperature 99.2 F Pulse Rate 100 H 96 H 90 Respiratory 26 H 18 29 H Rate Blood Pressure 147/65 133/62 133/62 O2 Sat by Pulse 96 96 97 Oximetry 03/29/18 03/29/18 03/29/18 08:58 09:00 09:31 Temperature Pulse Rate 88 90 Respiratory 21 19 Rate Blood Pressure 133/62 160/79 O2 Sat by Pulse 98 97 98 Oximetry 03/29/18 03/29/18 03/29/18 10:00 10:31 11:00 Temperature Pulse Rate 93 H 89 92 H Respiratory 17 21 20 Rate Blood Pressure 161/69 161/69 173/73 O2 Sat by Pulse 98 99 100 Oximetry 03/29/18 03/29/18 03/29/18 11:09 11:10 11:31 Temperature Pulse Rate 94 H 94 H 91 H Respiratory 23 Rate Blood Pressure 173/73 173/73 173/73 O2 Sat by Pulse 98 Oximetry 03/29/18 03/29/18 03/29/18 12:00 12:31 13:00 Temperature 99.2 F Pulse Rate 89 89 92 H Respiratory 17 23 19 Rate Blood Pressure 146/70 146/70 145/71 O2 Sat by Pulse 99 97 99 Oximetry 03/29/18 13:31 Temperature Pulse Rate 86 Respiratory 23 Rate Blood Pressure 145/71 O2 Sat by Pulse 98 Oximetry - Labs CBC & Chem 7: 03/29/18 05:45 03/29/18 23:18 Labs: Abnormal lab results 03/28/18 03/28/18 03/29/18 Range/Units 14:39 17:47 01:49 RBC (3.65-5.03) M/mm3 Hgb (11.8-15.2) gm/dl Hct (35.5-45.6) % MCV (84-94) fl RDW (13.2-15.2) % Plt Count (140-440) K/mm3 Lymph % (Auto) (13.4-35.0) % [place] % (Auto) (0.0-7.3) % Lymph # (1.2-5.4) K/mm3 Seg Neutrophils % (40.0-70.0) % Sodium (137-145) mmol/L BUN (9-20) mg/dL Glucose (75-100) mg/dL POC Glucose 250 H 132 H 122 H (70-105) Calcium (8.4-10.2) mg/dL 03/29/18 03/29/18 03/29/18 Range/Units 04:23 05:45 05:57 RBC 3.13 L (3.65-5.03) M/mm3 Hgb 8.8 L (11.8-15.2) gm/dl Hct 25.8 L (35.5-45.6) % MCV 82 L (84-94) fl RDW 12.7 L (13.2-15.2) % Plt Count 132 L (140-440) K/mm3 Lymph % (Auto) 10.8 L (13.4-35.0) % [place] % (Auto) 9.1 H (0.0-7.3) % Lymph # 1.0 L (1.2-5.4) K/mm3 Seg Neutrophils % 79.1 H (40.0-70.0) % Sodium 134 L (137-145) mmol/L BUN 27 H (9-20) mg/dL Glucose 172 H (75-100) mg/dL POC Glucose 224 H (70-105) Calcium 7.1 L (8.4-10.2) mg/dL 03/29/18 Range/Units 09:19 RBC (3.65-5.03) M/mm3 Hgb (11.8-15.2) gm/dl Hct (35.5-45.6) % MCV (84-94) fl RDW (13.2-15.2) % Plt Count (140-440) K/mm3 Lymph % (Auto) (13.4-35.0) % [place] % (Auto) (0.0-7.3) % Lymph # (1.2-5.4) K/mm3 Seg Neutrophils % (40.0-70.0) % Sodium (137-145) mmol/L BUN (9-20) mg/dL Glucose (75-100) mg/dL POC Glucose 316 H (70-105) Calcium (8.4-10.2) mg/dL
[2018-03-29] MEDS: D50W (25GM) Syringe IV PRN (22:33)
[2018-03-30] MEDS: MINIPRESS PO SCH ×3 (00:04→21:55)
[2018-03-30] MEDS: COREG PO SCH ×3 (00:05→21:55)
[2018-03-30] MEDS: PEPCID PO SCH ×3 (00:05→21:55)
[2018-03-30] MEDS: HEPARIN SUB-Q SCH ×4 (00:06→21:55)
[2018-03-30] MEDS: HumuLIN R SUB-Q SCH ×7 (00:07→21:35)
[2018-03-30] MEDS: SODIUM CHLORIDE FLUSH SYRINGE 10 ML IV SCH ×3 (00:13→21:56)
[2018-03-30] MEDS: NACL 0.45% 1000 ML 1,000 ML IV SCH ×2 (00:19→10:14)
[2018-03-30 08:11] LABS: Basophils % (Auto) 0.5 % (0.0-1.8); Eosinophils # (Auto) 0.1 K/mm3 (0.0-0.4); Eosinophils % (Auto) 1.7 % (0.0-4.3); Hematocrit 24.6 % (35.5-45.6); Hemoglobin 8.3 gm/dl (11.8-15.2); Lymphocytes # (Auto) 1.3 K/mm3 (1.2-5.4); Lymphocytes % (Auto) 20.2 % (13.4-35.0); Mean Corpuscular HGB Conc 34 % (32-34); Mean Corpuscular Hemoglobin 28 pg (28-32); Mean Corpuscular Volume 83 fl (84-94); Monocytes # (Auto) 0.9 K/mm3 (0.0-0.8); Monocytes % (Auto) 13.5 % (0.0-7.3); Platelet Count 172 K/mm3 (140-440); Red Blood Count 2.95 M/mm3 (3.65-5.03); Red Cell Distribution Width 12.9 % (13.2-15.2)
[2018-03-30] MEDS: PERCOCET 5/325 PO PRN ×3 (08:20→18:15)
[2018-03-30 08:23] LABS: BUN/Creatinine Ratio 24; Blood Urea Nitrogen 34 mg/dL (9-20); Calcium 7.3 mg/dL (8.4-10.2); Hemolysis Index 2
[2018-03-30] MEDS: BABY ASPIRIN PO SCH (10:15)
[2018-03-30] MEDS: APRESOLINE IV PRN (10:16)
--- NOTE | 2018-03-30 10:57 | Progress Note ---
Assessment and Plan SIRS possibly from DKA Acute hypoxic respiratory failure s/p MVS Acute encephalopathy( toxic, metabolic) Diabetic ketoacidosis Severe metabolic acidosis Severe Hyperkalemia ( Potassium was 8.1 on admission) BELKIS (acute kidney injury)secondary to severe dehydration BUN/creatinine on March 16 was 41/1.5, on admission was 43/2.5. Hypernatremia -Continue empiric antibiotics for now, follow cultures then de-escalate based on SALOME -Continue with fluid and insulin management per DKA protocol -Change insulin to long acting with scheduled short acting insulin therapy TID -VTE prophylaxis -Stress ulcer prophylaxis -Electrolyte management -Avoid nephrotoxic agents and adjust all medications for CrCl/GFR -ABGS -CXR prn -Mobility, PT/OT -Address and treat electrolyte abnormalities Subjective Date of service: 03/30/18 Principal diagnosis: Acute hypoxic respiratory failure, DKA, BELKIS, Acute encephalopathy Interval history: Documentation per ER MD. Unable to get history from the patient he is orally intubated. This is a 52-year-old insulin-dependent diabetic who was found essentially obtunded in his residence. No history was obtainable from the patient. Family members state that they have not seen him for perhaps 48 hours. He was found by his brother and obviously dire condition and EMS was notified. Medics transported to the patient to this facility fighting a sugar to be above the scale. The patient had been disconnected from his insulin pump. He was placed in a resuscitation room. He was deemed to be unable to adequately protect his airway. His respiratory rate was about 50. He was thus intubated using rapid sequence intubation technique. Later I spoke to the [facility] doctor (Dr. Carrera? sp). She stated that actually the patient had been seen in the [facility] on Sunday. He was found to have a sugar greater than 1000. He was given insulin and fluid. Apparently he was discharged with a sugar in the 400s. At that time he was fully ambulatory. He was documented to be in "good spirits". Follow up: Patient was seen and examined. Vitals, labs, medications and chart reviewed. No acute overnight events reported or documented Objective Vital Signs - 12hr 03/30/18 03/30/18 03/30/18 00:08 04:23 07:35 Temperature 98.5 F 98.5 F 99.0 F Pulse Rate 73 74 86 Respiratory 20 20 22 Rate Blood Pressure 148/87 156/83 190/86 O2 Sat by Pulse 99 99 100 Oximetry Constitutional: no acute distress, other (middle aged AAM, normocephalic and atraumatic) Eyes: non-icteric ENT: oropharynx moist, other (mallampatti 2) Neck: supple, no lymphadenopathy, no JVD, other (no thyromegaly) Effort: normal Ascultation: Bilateral: diminished breath sounds, rhonchi (posterior base) Percussion: Bilateral: not dull Cardiovascular: regular rate and rhythm, other (No R/M) Gastrointestinal: normoactive bowel sounds, soft, non-tender, non-distended, other ( No HSM) Integumentary: normal Extremities: no cyanosis, pulses normal, no ischemia or petechiae, edema (to hands) Neurologic: normal mental status, non-focal exam (grossly), pupils equal and round, CN II-XII normal, motor strength normal and Psychiatric: mood appropriate, affect normal CBC and BMP: 04/16/18 06:08 04/16/18 06:08 ABG, PT/INR, D-dimer: ABG POC ABG pH 7.405 (7.35-7.45) 03/28/18 03:49 POC ABG pCO2 38.6 (35-45) 03/28/18 03:49 POC ABG pO2 102 (80-105) 03/28/18 03:49 POC ABG HCO3 24.2 03/28/18 03:49 POC ABG Total CO2 25 03/28/18 03:49 POC ABG O2 Sat 98 03/28/18 03:49 Abnormal lab findings: Abnormal Labs 03/25/18 03/25/18 03/25/18 13:48 14:00 14:00 WBC 15.3 H RBC Hgb 10.5 L Hct MCV 95 H MCH 27 L MCHC 28 L RDW Plt Count Lymph % (Auto) 8.5 L [place] % (Auto) Lymph # [place] # Seg Neutrophils % 86.4 H Seg Neutrophils # 13.2 H POC ABG pH POC ABG pCO2 POC ABG pO2 VBG pH Sodium 132 L Potassium 8.1 H* Chloride 87.8 L Carbon Dioxide 3 L* BUN 43 H Creatinine 2.6 H Glucose 1026 H* POC Glucose > 500 H Hemoglobin A1c Lactic Acid Calcium Phosphorus TIBC Transferrin Ferritin AST Total Creatine Kinase Troponin T Total Protein Albumin Triglycerides Cholesterol LDL Cholesterol Direct 03/25/18 03/25/18 03/25/18 14:00 14:08 14:29 WBC RBC Hgb Hct MCV MCH MCHC RDW Plt Count Lymph % (Auto) [place] % (Auto) Lymph # [place] # Seg Neutrophils % Seg Neutrophils # POC ABG pH 6.952 L POC ABG pCO2 25.8 L POC ABG pO2 559 H VBG pH Sodium Potassium Chloride Carbon Dioxide BUN Creatinine Glucose POC Glucose Hemoglobin A1c Lactic Acid 10.10 H* Calcium Phosphorus 8.70 H TIBC Transferrin Ferritin AST Total Creatine Kinase Troponin T Total Protein Albumin 2.6 L Triglycerides Cholesterol LDL Cholesterol Direct 03/25/18 03/25/18 03/25/18 14:41 15:40 15:40 WBC RBC Hgb Hct MCV MCH MCHC RDW Plt Count Lymph % (Auto) [place] % (Auto) Lymph # [place] # Seg Neutrophils % Seg Neutrophils # POC ABG pH POC ABG pCO2 POC ABG pO2 VBG pH 7.000 L* Sodium Potassium 6.7 H* Chloride 97.5 L Carbon Dioxide 5 L* BUN 43 H Creatinine 2.5 H Glucose 893 H* POC Glucose Hemoglobin A1c Lactic Acid Calcium 7.5 L Phosphorus 9.10 H TIBC Transferrin Ferritin AST Total Creatine Kinase Troponin T Total Protein Albumin Triglycerides Cholesterol LDL Cholesterol Direct 03/25/18 03/25/18 03/25/18 18:09 18:12 18:55 WBC RBC Hgb Hct MCV MCH MCHC RDW Plt Count Lymph % (Auto) [place] % (Auto) Lymph # [place] # Seg Neutrophils % Seg Neutrophils # POC ABG pH POC ABG pCO2 POC ABG pO2 VBG pH Sodium 133 L Potassium 5.7 H Chloride 93.1 L Carbon Dioxide 10 L BUN 43 H Creatinine 2.5 H Glucose 786 H* POC Glucose Hemoglobin A1c 8.9 H Lactic Acid Calcium 7.8 L Phosphorus TIBC Transferrin Ferritin AST Total Creatine Kinase 226 H Troponin T 0.033 H Total Protein Albumin Triglycerides 185 H Cholesterol 215 H LDL Cholesterol Direct 144 H 03/25/18 03/25/18 03/25/18 18:55 21:00 21:03 WBC RBC Hgb Hct MCV MCH MCHC RDW Plt Count Lymph % (Auto) [place] % (Auto) Lymph # [place] # Seg Neutrophils % Seg Neutrophils # POC ABG pH POC ABG pCO2 POC ABG pO2 VBG pH Sodium 136 L Potassium 6.7 H* Chloride Carbon Dioxide 7 L* BUN 45 H Creatinine 2.6 H Glucose 879 H* POC Glucose > 500 H Hemoglobin A1c Lactic Acid Calcium 7.8 L Phosphorus 9.20 H TIBC Transferrin Ferritin AST Total Creatine Kinase Troponin T Total Protein Albumin Triglycerides Cholesterol LDL Cholesterol Direct 03/25/18 03/25/18 03/25/18 21:39 22:06 23:20 WBC RBC Hgb Hct MCV MCH MCHC RDW Plt Count Lymph % (Auto) [place] % (Auto) Lymph # [place] # Seg Neutrophils % Seg Neutrophils # POC ABG pH 7.272 L POC ABG pCO2 14.2 L POC ABG pO2 263 H VBG pH Sodium Potassium Chloride Carbon Dioxide 7 L* BUN 47 H Creatinine 2.9 H Glucose 702 H* POC Glucose > 500 H Hemoglobin A1c Lactic Acid Calcium 7.6 L Phosphorus TIBC Transferrin Ferritin AST Total Creatine Kinase Troponin T Total Protein Albumin Triglycerides Cholesterol LDL Cholesterol Direct 03/25/18 03/26/18 03/26/18 23:20 00:17 01:08 WBC RBC Hgb Hct MCV MCH MCHC RDW Plt Count Lymph % (Auto) [place] % (Auto) Lymph # [place] # Seg Neutrophils % Seg Neutrophils # POC ABG pH POC ABG pCO2 POC ABG pO2 VBG pH Sodium Potassium Chloride Carbon Dioxide BUN Creatinine Glucose POC Glucose > 500 H 447 H 484 H Hemoglobin A1c Lactic Acid Calcium Phosphorus TIBC Transferrin Ferritin AST Total Creatine Kinase Troponin T Total Protein Albumin Triglycerides Cholesterol LDL Cholesterol Direct 03/26/18 03/26/18 03/26/18 02:31 03:07 04:09 WBC RBC Hgb Hct MCV MCH MCHC RDW Plt Count Lymph % (Auto) [place] % (Auto) Lymph # [place] # Seg Neutrophils % Seg Neutrophils # POC ABG pH POC ABG pCO2 POC ABG pO2 VBG pH Sodium Potassium Chloride Carbon Dioxide BUN Creatinine Glucose POC Glucose > 500 H 467 H 361 H Hemoglobin A1c Lactic Acid Calcium Phosphorus TIBC Transferrin Ferritin AST Total Creatine Kinase Troponin T Total Protein Albumin Triglycerides Cholesterol LDL Cholesterol Direct 03/26/18 03/26/18 03/26/18 04:25 05:24 06:19 WBC RBC Hgb Hct MCV MCH MCHC RDW Plt Count Lymph % (Auto) [place] % (Auto) Lymph # [place] # Seg Neutrophils % Seg Neutrophils # POC ABG pH POC ABG pCO2 POC ABG pO2 VBG pH Sodium 150 H D Potassium 3.4 L D Chloride 118.3 H Carbon Dioxide 16 L D BUN 45 H Creatinine 2.7 H Glucose 278 H POC Glucose 306 H 188 H Hemoglobin A1c Lactic Acid Calcium 7.7 L Phosphorus TIBC Transferrin Ferritin AST Total Creatine Kinase Troponin T Total Protein Albumin Triglycerides Cholesterol LDL Cholesterol Direct 03/26/18 03/26/18 03/26/18 07:09 08:20 09:12 WBC RBC Hgb Hct MCV MCH MCHC RDW Plt Count Lymph % (Auto) [place] % (Auto) Lymph # [place] # Seg Neutrophils % Seg Neutrophils # POC ABG pH 7.530 H POC ABG pCO2 22.0 L POC ABG pO2 147 H VBG pH Sodium Potassium Chloride Carbon Dioxide BUN Creatinine Glucose POC Glucose 148 H 170 H Hemoglobin A1c Lactic Acid Calcium Phosphorus TIBC Transferrin Ferritin AST Total Creatine Kinase Troponin T Total Protein Albumin Triglycerides Cholesterol LDL Cholesterol Direct 03/26/18 03/26/18 03/26/18 09:15 10:30 10:46 WBC RBC Hgb Hct MCV MCH MCHC RDW Plt Count Lymph % (Auto) [place] % (Auto) Lymph # [place] # Seg Neutrophils % Seg Neutrophils # POC ABG pH POC ABG pCO2 POC ABG pO2 VBG pH Sodium 152 H Potassium 3.1 L Chloride 121.4 H Carbon Dioxide BUN 43 H Creatinine 2.6 H Glucose 105 H POC Glucose 177 H 125 H Hemoglobin A1c Lactic Acid Calcium 7.5 L Phosphorus TIBC Transferrin Ferritin AST Total Creatine Kinase Troponin T Total Protein Albumin Triglycerides Cholesterol LDL Cholesterol Direct 03/26/18 03/26/18 03/26/18 14:57 15:35 18:12 WBC RBC Hgb Hct MCV MCH MCHC RDW Plt Count Lymph % (Auto) [place] % (Auto) Lymph # [place] # Seg Neutrophils % Seg Neutrophils # POC ABG pH POC ABG pCO2 POC ABG pO2 VBG pH Sodium 148 H Potassium Chloride 117.5 H Carbon Dioxide 18 L BUN 43 H Creatinine 2.5 H Glucose 135 H POC Glucose 159 H 245 H Hemoglobin A1c Lactic Acid Calcium 7.3 L Phosphorus TIBC Transferrin Ferritin AST Total Creatine Kinase Troponin T Total Protein Albumin Triglycerides Cholesterol LDL Cholesterol Direct 03/26/18 03/26/18 03/27/18 19:27 21:42 02:03 WBC RBC Hgb Hct MCV MCH MCHC RDW Plt Count Lymph % (Auto) [place] % (Auto) Lymph # [place] # Seg Neutrophils % Seg Neutrophils # POC ABG pH POC ABG pCO2 POC ABG pO2 VBG pH Sodium Potassium Chloride 115.0 H Carbon Dioxide 20 L BUN 42 H Creatinine 2.4 H Glucose 221 H POC Glucose 261 H 254 H Hemoglobin A1c Lactic Acid Calcium 7.1 L Phosphorus TIBC Transferrin Ferritin AST Total Creatine Kinase Troponin T Total Protein Albumin Triglycerides Cholesterol LDL Cholesterol Direct 03/27/18 03/27/18 03/27/18 03:35 03:35 05:20 WBC 12.3 H RBC 3.05 L Hgb 8.3 L Hct 25.3 L D MCV 83 L MCH 27 L MCHC RDW Plt Count Lymph % (Auto) [place] % (Auto) 8.6 H Lymph # [place] # 1.1 H Seg Neutrophils % 76.5 H Seg Neutrophils # 9.4 H POC ABG pH POC ABG pCO2 POC ABG pO2 VBG pH Sodium Potassium Chloride 112.6 H Carbon Dioxide BUN 36 H Creatinine 2.1 H Glucose 244 H POC Glucose 263 H Hemoglobin A1c Lactic Acid Calcium 7.1 L Phosphorus TIBC Transferrin Ferritin AST 44 H Total Creatine Kinase Troponin T Total Protein 5.1 L D Albumin 2.1 L Triglycerides Cholesterol LDL Cholesterol Direct 03/27/18 03/27/18 03/27/18 08:22 13:00 14:06 WBC RBC Hgb Hct MCV MCH MCHC RDW Plt Count Lymph % (Auto) [place] % (Auto) Lymph # [place] # Seg Neutrophils % Seg Neutrophils # POC ABG pH POC ABG pCO2 34.7 L POC ABG pO2 VBG pH Sodium Potassium Chloride Carbon Dioxide BUN Creatinine Glucose POC Glucose 306 H 233 H Hemoglobin A1c Lactic Acid Calcium Phosphorus TIBC Transferrin Ferritin AST Total Creatine Kinase Troponin T Total Protein Albumin Triglycerides Cholesterol LDL Cholesterol Direct 03/27/18 03/27/18 03/27/18 16:15 18:11 21:44 WBC RBC Hgb Hct MCV MCH MCHC RDW Plt Count Lymph % (Auto) [place] % (Auto) Lymph # [place] # Seg Neutrophils % Seg Neutrophils # POC ABG pH POC ABG pCO2 POC ABG pO2 VBG pH Sodium Potassium Chloride Carbon Dioxide BUN Creatinine Glucose POC Glucose 243 H 226 H 224 H Hemoglobin A1c Lactic Acid Calcium Phosphorus TIBC Transferrin Ferritin AST Total Creatine Kinase Troponin T Total Protein Albumin Triglycerides Cholesterol LDL Cholesterol Direct 03/28/18 03/28/18 03/28/18 02:07 04:35 04:35 WBC RBC Hgb Hct MCV MCH MCHC RDW Plt Count Lymph % (Auto) [place] % (Auto) Lymph # [place] # Seg Neutrophils % Seg Neutrophils # POC ABG pH POC ABG pCO2 POC ABG pO2 VBG pH Sodium Potassium Chloride Carbon Dioxide BUN Creatinine Glucose POC Glucose 220 H Hemoglobin A1c Lactic Acid Calcium Phosphorus TIBC 115 L Transferrin 94 L Ferritin 412.1 H AST Total Creatine Kinase Troponin T Total Protein Albumin Triglycerides Cholesterol LDL Cholesterol Direct 03/28/18 03/28/18 03/28/18 05:27 09:52 10:59 WBC RBC 3.22 L Hgb 9.1 L Hct 26.8 L MCV 83 L MCH MCHC RDW Plt Count 134 L Lymph % (Auto) [place] % (Auto) Lymph # [place] # Seg Neutrophils % Seg Neutrophils # POC ABG pH POC ABG pCO2 POC ABG pO2 VBG pH Sodium Potassium Chloride Carbon Dioxide BUN Creatinine Glucose POC Glucose 280 H 332 H Hemoglobin A1c Lactic Acid Calcium Phosphorus TIBC Transferrin Ferritin AST Total Creatine Kinase Troponin T Total Protein Albumin Triglycerides Cholesterol LDL Cholesterol Direct 03/28/18 03/28/18 03/28/18 10:59 14:39 17:47 WBC RBC Hgb Hct MCV MCH MCHC RDW Plt Count Lymph % (Auto) [place] % (Auto) Lymph # [place] # Seg Neutrophils % Seg Neutrophils # POC ABG pH POC ABG pCO2 POC ABG pO2 VBG pH Sodium 136 L Potassium Chloride Carbon Dioxide BUN 29 H Creatinine Glucose 310 H POC Glucose 250 H 132 H Hemoglobin A1c Lactic Acid Calcium 7.0 L Phosphorus TIBC Transferrin Ferritin AST Total Creatine Kinase Troponin T Total Protein Albumin Triglycerides Cholesterol LDL Cholesterol Direct 03/29/18 03/29/18 03/29/18 01:49 04:23 05:45 WBC RBC 3.13 L Hgb 8.8 L Hct 25.8 L MCV 82 L MCH MCHC RDW 12.7 L Plt Count 132 L Lymph % (Auto) 10.8 L [place] % (Auto) 9.1 H Lymph # 1.0 L [place] # Seg Neutrophils % 79.1 H Seg Neutrophils # POC ABG pH POC ABG pCO2 POC ABG pO2 VBG pH Sodium 134 L Potassium Chloride Carbon Dioxide BUN 27 H Creatinine Glucose 172 H POC Glucose 122 H Hemoglobin A1c Lactic Acid Calcium 7.1 L Phosphorus TIBC Transferrin Ferritin AST Total Creatine Kinase Troponin T Total Protein Albumin Triglycerides Cholesterol LDL Cholesterol Direct 03/29/18 03/29/18 03/29/18 05:57 09:19 13:09 WBC RBC Hgb Hct MCV MCH MCHC RDW Plt Count Lymph % (Auto) [place] % (Auto) Lymph # [place] # Seg Neutrophils % Seg Neutrophils # POC ABG pH POC ABG pCO2 POC ABG pO2 VBG pH Sodium Potassium Chloride Carbon Dioxide BUN Creatinine Glucose POC Glucose 224 H 316 H 345 H Hemoglobin A1c Lactic Acid Calcium Phosphorus TIBC Transferrin Ferritin AST Total Creatine Kinase Troponin T Total Protein Albumin Triglycerides Cholesterol LDL Cholesterol Direct 03/29/18 03/30/18 03/30/18 16:27 00:07 05:12 WBC RBC Hgb Hct MCV MCH MCHC RDW Plt Count Lymph % (Auto) [place] % (Auto) Lymph # [place] # Seg Neutrophils % Seg Neutrophils # POC ABG pH POC ABG pCO2 POC ABG pO2 VBG pH Sodium Potassium Chloride Carbon Dioxide BUN Creatinine Glucose POC Glucose 210 H 69 L 213 H Hemoglobin A1c Lactic Acid Calcium Phosphorus TIBC Transferrin Ferritin AST Total Creatine Kinase Troponin T Total Protein Albumin Triglycerides Cholesterol LDL Cholesterol Direct 03/30/18 03/30/18 03/30/18 06:39 06:39 10:06 WBC RBC 2.95 L Hgb 8.3 L Hct 24.6 L MCV 83 L MCH MCHC RDW 12.9 L Plt Count Lymph % (Auto) [place] % (Auto) 13.5 H Lymph # [place] # 0.9 H Seg Neutrophils % Seg Neutrophils # POC ABG pH POC ABG pCO2 POC ABG pO2 VBG pH Sodium 133 L Potassium 3.5 L D Chloride 95.6 L Carbon Dioxide BUN 34 H Creatinine Glucose 241 H POC Glucose 368 H Hemoglobin A1c Lactic Acid Calcium 7.3 L Phosphorus TIBC Transferrin Ferritin AST Total Creatine Kinase Troponin T Total Protein Albumin Triglycerides Cholesterol LDL Cholesterol Direct Allied health notes reviewed: nursing
--- NOTE | 2018-03-30 11:04 | Progress Note ---
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: -Cr stable. -Renally dose meds -Strict intake and output -Obtain daily weight Acute Respiratory Failure: -extubated -Pulmonology on board DKA: -Improving -Off insulin drip -On insulin -On DKA protocol Essential Hypertension: -Titrate BP meds PRN to keep SBP <130 Subjective Date of service: 03/30/18 Principal diagnosis: Acute hypoxic respiratory failure, DKA, BELKIS, Acute encephalopathy Interval history: Denies CP, SHOB. Objective - Exam Narrative Exam: General appearance: well-developed, well-nourished EENT: ATNC, PERRL, mucous membranes moist Neck: no JVD, no carotid bruit Respiratory: Present: Clear to Ascultation. Absent: Rales, Ronchi Cardiology: regular, S1S2 Gastrointestinal: normoactive bowel sounds, no tenderness, no distended Integumentary: no rash, warm and dry Neurologic: no focal deficit, no asterixis Musculoskeletal: other (no edema in BLE) Psychiatric: cooperative - Vital Signs Vital signs: Vital Signs - 12hr 03/30/18 03/30/18 03/30/18 00:08 04:23 07:35 Temperature 98.5 F 98.5 F 99.0 F Pulse Rate 73 74 86 Respiratory 20 20 22 Rate Blood Pressure 148/87 156/83 190/86 O2 Sat by Pulse 99 99 100 Oximetry 03/30/18 10:57 Temperature Pulse Rate 86 Respiratory Rate Blood Pressure O2 Sat by Pulse Oximetry - Lab 03/30/18 06:39 03/30/18 06:39 Most recent lab results Calcium 7.3 mg/dL (8.4-10.2) L 03/30/18 06:39 Phosphorus 3.10 mg/dL (2.5-4.5) 03/30/18 06:39 Magnesium 2.20 mg/dL (1.7-2.3) 03/25/18 18:55
--- NOTE | 2018-03-30 12:18 | Progress Note ---
Assessment and Plan Assessment and plan: --DKA (diabetic ketoacidoses) BG was 1026, with pH of 6.9, AG 49 Placed on insulin drip since admission Anion gap has now closed now off insulin drip and placed on NPH every 12 hours along with SSI, A1c 8.9 Start on consistent carb diet --Acute respiratory failure s/p ventilator management and support Weaned off from vent, extubated 03/28 DuoNeb scheduled, critical care following transfer out to [facility] today --Hyperkalemia Potassium was 8.1 on admission Corrected with IV insulin cont IV fluids, monitor BMP --BELKIS (acute kidney injury)secondary to severe dehydration BUN/creatinine on March 16 was 41/1.5, on admission was 43/2.5. IV fluids for now Nephrology consult requested monitor BUN/creatinine --SIRS, likely from DKA We will continue on IV Zosyn pending blood cultures. UA doesn't look like significant for UTI --Metabolic acidosis due to DKA and renal failure Severe Status post IV Sodium bicarbonate --Hypernatremia, we'll change IV fluid to half normal saline, continue to monitor BMP Free water with tube feeding --Hypertension, uncontrolled Placed on Coreg 12.5 twice a day, also placed on clonidine patch for now --DVT prophylaxis Heparin subcutaneously 5000 units every 8 hours History Interval history: Patient seen and evaluated medical records reviewed Admitted with DKA The patient's blood sugars are uncontrolled Secondary to noncompliance No new complaints vital signs reviewed Hospitalist Physical - Constitutional Vitals: Temp Pulse Resp BP Pulse Ox 99.0 F 86 22 190/86 100 03/30/18 07:35 03/30/18 10:57 03/30/18 07:35 03/30/18 07:35 03/30/18 07:35 General appearance: Present: no acute distress, well-nourished - EENT Eyes: Present: PERRL, EOM intact - Neck Neck: Present: supple, normal ROM - Respiratory Respiratory effort: normal Respiratory: negative: rales, rhonchi, wheezing - Cardiovascular Rhythm: regular Heart Sounds: Present: S1 & S2 - Extremities Extremities: no ischemia, No edema - Abdominal General gastrointestinal: soft, non-tender, non-distended, normal bowel sounds - Integumentary Integumentary: Present: clear, warm - Psychiatric Psychiatric: appropriate mood/affect, cooperative - Neurologic Neurologic: CNII-XII intact, moves all extremities Results - Labs CBC & Chem 7: 03/30/18 06:39 06 06:39 Labs: Laboratory Last Values WBC 6.6 K/mm3 (4.5-11.0) 03/30/18 06:39 RBC 2.95 M/mm3 (3.65-5.03) L 03/30/18 06:39 Hgb 8.3 gm/dl (11.8-15.2) L 03/30/18 06:39 Hct 24.6 % (35.5-45.6) L 03/30/18 06:39 MCV 83 fl (84-94) L 03/30/18 06:39 MCH 28 pg (28-32) 03/30/18 06:39 MCHC 34 % (32-34) 03/30/18 06:39 RDW 12.9 % (13.2-15.2) L 03/30/18 06:39 Plt Count 172 K/mm3 (140-440) 03/30/18 06:39 Lymph % (Auto) 20.2 % (13.4-35.0) 03/30/18 06:39 [place] % (Auto) 13.5 % (0.0-7.3) H 03/30/18 06:39 Eos % (Auto) 1.7 % (0.0-4.3) 03/30/18 06:39 Baso % (Auto) 0.5 % (0.0-1.8) 03/30/18 06:39 Lymph # 1.3 K/mm3 (1.2-5.4) 03/30/18 06:39 [place] # 0.9 K/mm3 (0.0-0.8) H 03/30/18 06:39 Eos # 0.1 K/mm3 (0.0-0.4) 03/30/18 06:39 Baso # 0.0 K/mm3 (0.0-0.1) 03/30/18 06:39 Seg Neutrophils % 64.1 % (40.0-70.0) 03/30/18 06:39 Seg Neutrophils # 4.2 K/mm3 (1.8-7.7) 03/30/18 06:39 POC ABG pH 7.405 (7.35-7.45) 03/28/18 03:49 POC ABG pCO2 38.6 (35-45) 03/28/18 03:49 POC ABG pO2 102 (80-105) 03/28/18 03:49 POC ABG HCO3 24.2 03/28/18 03:49 POC ABG Total CO2 25 03/28/18 03:49 POC ABG O2 Sat 98 03/28/18 03:49 POC ABG Base Excess 0 03/28/18 03:49 VBG pH 7.000 (7.320-7.420) L* 03/25/18 14:41 FiO2 25 % 03/28/18 03:49 Sodium 133 mmol/L (137-145) L 03/30/18 06:39 Potassium 3.5 mmol/L (3.6-5.0) L D 03/30/18 06:39 Chloride 95.6 mmol/L (98-107) L 03/30/18 06:39 Carbon Dioxide 24 mmol/L (22-30) 03/30/18 06:39 Anion Gap 17 mmol/L 03/30/18 06:39 BUN 34 mg/dL (9-20) H 03/30/18 06:39 Creatinine 1.4 mg/dL (0.8-1.5) 03/30/18 06:39 Estimated GFR > 60 ml/min 03/30/18 06:39 BUN/Creatinine Ratio 24 % 03/30/18 06:39 Glucose 241 mg/dL (75-100) H 03/30/18 06:39 POC Glucose 368 (70-105) H 03/30/18 10:06 Hemoglobin A1c 8.9 % (4-6) H 03/25/18 18:55 Lactic Acid 1.80 mmol/L (0.7-2.0) 03/26/18 04:25 Calcium 7.3 mg/dL (8.4-10.2) L 03/30/18 06:39 Phosphorus 3.10 mg/dL (2.5-4.5) 03/30/18 06:39 Magnesium 2.20 mg/dL (1.7-2.3) 03/25/18 18:55 Iron 54 ug/dL (49-181) 03/28/18 04:35 TIBC 115 mcg/dL (250-450) L 03/28/18 04:35 Transferrin 94 mg/dl (180-329) L 03/28/18 04:35 Ferritin 412.1 ng/mL (13.0-400.0) H 03/28/18 04:35 Total Bilirubin 0.20 mg/dL (0.1-1.2) 03/27/18 03:35 Direct Bilirubin < 0.2 mg/dL (0-0.2) 03/25/18 14:08 Indirect Bilirubin 0.1 mg/dL 03/25/18 14:08 AST 44 units/L (5-40) H 03/27/18 03:35 ALT 28 units/L (7-56) 03/27/18 03:35 Alkaline Phosphatase 128 units/L (35-129) 03/27/18 03:35 Total Creatine Kinase 226 units/L (55-170) H 03/25/18 18:09 CK-MB (CK-2) 3.7 ng/mL (0.0-4.0) 03/25/18 18:09 CK-MB (CK-2) Rel Index 1.6 (0-4) 03/25/18 18:09 Troponin T 0.033 ng/mL (0.00-0.029) H 03/25/18 18:09 Total Protein 5.1 g/dL (6.3-8.2) L D 03/27/18 03:35 Albumin 2.1 g/dL (3.9-5) L 03/27/18 03:35 Albumin/Globulin Ratio 0.7 % 03/27/18 03:35 Triglycerides 185 mg/dL (2-149) H 03/25/18 18:09 Cholesterol 215 mg/dL (50-199) H 03/25/18 18:09 LDL Cholesterol Direct 144 mg/dL (50-130) H 03/25/18 18:09 HDL Cholesterol 48 mg/dL (40-59) 03/25/18 18:09 Cholesterol/HDL Ratio 4.47 % 03/25/18 18:09 Urine Color Yellow (Yellow) 03/25/18 14:00 Urine Turbidity Clear (Clear) 03/25/18 14:00 Urine pH 5.0 (5.0-7.0) 03/25/18 14:00 Ur Specific [place] 1.021 (1.003-1.030) 03/25/18 14:00 Urine Protein 100 mg/dl mg/dL (Negative) 03/25/18 14:00 Urine Glucose (UA) >=500 mg/dL (Negative) 03/25/18 14:00 Urine Ketones 80 mg/dL (Negative) 03/25/18 14:00 Urine Blood Sm (Negative) 03/25/18 14:00 Urine Nitrite Neg (Negative) 03/25/18 14:00 Urine Bilirubin Neg (Negative) 03/25/18 14:00 Urine Urobilinogen < 2.0 mg/dL (<2.0) 03/25/18 14:00 Ur Leukocyte Esterase Neg (Negative) 03/25/18 14:00 Urine WBC (Auto) 1.0 /HPF (0.0-6.0) 03/25/18 14:00 Urine RBC (Auto) 1.0 /HPF (0.0-6.0) 03/25/18 14:00 Urine Bacteria (Auto) 1+ /HPF (Negative) 03/25/18 14:00 Urine Mucus Few /HPF 03/25/18 14:00 Urine Opiates Screen Presumptive negative 03/25/18 14:19 Urine Methadone Screen Presumptive negative 03/25/18 14:19 Ur Barbiturates Screen Presumptive negative 03/25/18 14:19 Ur Phencyclidine Scrn Presumptive negative 03/25/18 14:19 Ur Amphetamines Screen Presumptive negative 03/25/18 14:19 U Benzodiazepines Scrn Presumptive negative 03/25/18 14:19 Urine Cocaine Screen Presumptive negative 03/25/18 14:19 U Marijuana (THC) Screen Presumptive negative 03/25/18 14:19 Drugs of Abuse Note Disclamer 03/25/18 14:19
[2018-03-30] MEDS ORDERED: K-DUR PO ONE (13:00)
[2018-03-30] MEDS: PROzac PO SCH (15:27)
[2018-03-31] MEDS: NACL 0.45% 1000 ML 1,000 ML IV SCH (04:06)
[2018-03-31] MEDS: HumuLIN R SUB-Q SCH ×6 (05:11→22:56)
[2018-03-31] MEDS: HEPARIN SUB-Q SCH ×3 (06:32→22:57)
[2018-03-31 09:06] LABS: Hematocrit 25.3 % (35.5-45.6); Hemoglobin 8.6 gm/dl (11.8-15.2); Mean Corpuscular HGB Conc 34 % (32-34); Mean Corpuscular Hemoglobin 28 pg (28-32); Mean Corpuscular Volume 83 fl (84-94); Platelet Count 232 K/mm3 (140-440); Red Blood Count 3.06 M/mm3 (3.65-5.03); Red Cell Distribution Width 12.7 % (13.2-15.2)
[2018-03-31 09:23] LABS: Calcium 7.3 mg/dL (8.4-10.2)
[2018-03-31] MEDS: PEPCID PO SCH ×2 (09:47→22:56)
[2018-03-31] MEDS: BABY ASPIRIN PO SCH (09:47)
[2018-03-31] MEDS: PROzac PO SCH (09:47)
[2018-03-31] MEDS: MINIPRESS PO SCH ×2 (09:47→22:55)
[2018-03-31] MEDS: COREG PO SCH ×2 (09:47→22:55)
[2018-03-31 10:47] LABS: Basophils % (Manual) 0 % (0.0-1.8); Eosinophils % (Manual) 0 % (0.0-4.3); RBC Morphology Normal; Total Cells Counted 100
[2018-03-31 10:48] LABS: Platelet Estimate Consistent w Auto
--- NOTE | 2018-03-31 11:05 | Progress Note ---
Assessment and Plan Assessment and plan: --Uncontrolled blood sugars; Patient did not receive 30 units insulin last night because of hypoglycemia Did not receive 30 units insulin this morning, [ nurse reports that pt did not eat]] Patient's sugars are more than 500 ,not in DKA Closely monitor blood sugars and adjust insulin dose as needed --DKA (diabetic ketoacidoses); resolved BG was 1026, with pH of 6.9, AG 49 at the time of admission now off insulin drip and placed on long-acting insulin twice a day dose Sliding scale coverage high-dose scale, A1c 8.9 On ADA diet --Acute respiratory failure; saturating well on nasal cannula oxygen s/p ventilator management and support Weaned off from vent, extubated 03/28 Continued nebs, evaluation for home oxygen at discharge --Hyperkalemia; resolved --BELKIS (acute kidney injury)secondary to severe dehydration Due to ATN, trending down --SIRS, Received empiric antibiotics Cultures negative to date --Metabolic acidosis due to DKA and renal failure Admission to improve continue supportive care --Hypernatremia, resolved --Hypertension,moderate control Continue current antihypertensives and when necessary medications --DVT prophylaxis Heparin subcutaneously 5000 units every 8 hours Plan of care reviewed with the patient and his nurse Closely monitor blood sugars Possible home health nurse for disease monitoring at discharge Possible discharge in 1-2 days if stable History Interval history: Patient seen and examined medical records reviewed Admitted with DKA , managed per DKA protocol Blood sugars are reasonable level, acidosis ketosis resolved This morning morning blood sugars 260, Patient did not receive 30 units of yesterday evening dose due to hypoglycemia, did not receive 30 units morning dose today because patient did not eat, Today afternoon blood sugars are more than 500 Not in DKA, patient is tolerating diet Hospitalist Physical - Constitutional Vitals: Temp Pulse Resp BP Pulse Ox 99.6 F 93 H 20 163/76 96 03/31/18 08:14 03/31/18 09:47 03/31/18 08:14 03/31/18 09:47 03/31/18 08:14 General appearance: Present: no acute distress, well-nourished - EENT Eyes: Present: PERRL, EOM intact - Neck Neck: Present: supple, normal ROM - Respiratory Respiratory effort: normal Respiratory: bilateral: diminished, negative: rales, rhonchi, wheezing - Cardiovascular Rhythm: regular Heart Sounds: Present: S1 & S2 - Extremities Extremities: no ischemia, No edema - Abdominal General gastrointestinal: soft, non-tender, non-distended, normal bowel sounds - Integumentary Integumentary: Present: clear, warm - Psychiatric Psychiatric: appropriate mood/affect, cooperative - Neurologic Neurologic: CNII-XII intact, moves all extremities Results - Labs CBC & Chem 7: 03/31/18 07:24 03/31/18 07:24 Labs: Laboratory Last Values WBC 6.9 K/mm3 (4.5-11.0) 03/31/18 07:24 RBC 3.06 M/mm3 (3.65-5.03) L 03/31/18 07:24 Hgb 8.6 gm/dl (11.8-15.2) L 03/31/18 07:24 Hct 25.3 % (35.5-45.6) L 03/31/18 07:24 MCV 83 fl (84-94) L 03/31/18 07:24 MCH 28 pg (28-32) 03/31/18 07:24 MCHC 34 % (32-34) 03/31/18 07:24 RDW 12.7 % (13.2-15.2) L 03/31/18 07:24 Plt Count 232 K/mm3 (140-440) 03/31/18 07:24 Lymph % (Auto) 20.2 % (13.4-35.0) 03/30/18 06:39 [place] % (Auto) Therapist Speech 03/31/18 07:24 Eos % (Auto) 1.7 % (0.0-4.3) 03/30/18 06:39 Baso % (Auto) 0.5 % (0.0-1.8) 03/30/18 06:39 Lymph # 1.3 K/mm3 (1.2-5.4) 03/30/18 06:39 [place] # 0.9 K/mm3 (0.0-0.8) H 03/30/18 06:39 Eos # 0.1 K/mm3 (0.0-0.4) 03/30/18 06:39 Baso # 0.0 K/mm3 (0.0-0.1) 03/30/18 06:39 Add Manual Diff Complete 03/31/18 07:24 Total Counted 100 03/31/18 07:24 Seg Neutrophils % 64.1 % (40.0-70.0) 03/30/18 06:39 Seg Neuts % (Manual) 73.0 % (40.0-70.0) H 03/31/18 07:24 Band Neutrophils % 0 % 03/31/18 07:24 Lymphocytes % (Manual) 6.0 % (13.4-35.0) L 03/31/18 07:24 Reactive Lymphs % (Man) 0 % 03/31/18 07:24 Monocytes % (Manual) 21.0 % (0.0-7.3) H 03/31/18 07:24 Eosinophils % (Manual) 0 % (0.0-4.3) 03/31/18 07:24 Basophils % (Manual) 0 % (0.0-1.8) 03/31/18 07:24 Metamyelocytes % 0 % 03/31/18 07:24 Myelocytes % 0 % 03/31/18 07:24 Promyelocytes % 0 % 03/31/18 07:24 Blast Cells % 0 % 03/31/18 07:24 Nucleated RBC % Not Reportable 03/31/18 07:24 Seg Neutrophils # 4.2 K/mm3 (1.8-7.7) 03/30/18 06:39 Seg Neutrophils # Man 5.0 K/mm3 (1.8-7.7) 03/31/18 07:24 Band Neutrophils # 0.0 K/mm3 03/31/18 07:24 Lymphocytes # (Manual) 0.4 K/mm3 (1.2-5.4) L 03/31/18 07:24 Abs React Lymphs (Man) 0.0 K/mm3 03/31/18 07:24 Monocytes # (Manual) 1.4 K/mm3 (0.0-0.8) H 03/31/18 07:24 Eosinophils # (Manual) 0.0 K/mm3 (0.0-0.4) 03/31/18 07:24 Basophils # (Manual) 0.0 K/mm3 (0.0-0.1) 03/31/18 07:24 Metamyelocytes # 0.0 K/mm3 03/31/18 07:24 Myelocytes # 0.0 K/mm3 03/31/18 07:24 Promyelocytes # 0.0 K/mm3 03/31/18 07:24 Blast Cells # 0.0 K/mm3 03/31/18 07:24 WBC Morphology Not Reportable 03/31/18 07:24 Hypersegmented Neuts Not Reportable 03/31/18 07:24 Hyposegmented Neuts Not Reportable 03/31/18 07:24 Hypogranular Neuts Not Reportable 03/31/18 07:24 Smudge Cells Not Reportable 03/31/18 07:24 Toxic Granulation Not Reportable 03/31/18 07:24 Toxic Vacuolation Not Reportable 03/31/18 07:24 Dohle Bodies Not Reportable 03/31/18 07:24 Pelger-Huet Anomaly Not Reportable 03/31/18 07:24 Loi Rods Not Reportable 03/31/18 07:24 Platelet Estimate Consistent w auto 03/31/18 07:24 Clumped Platelets Not Reportable 03/31/18 07:24 Plt Clumps, EDTA Not Reportable 03/31/18 07:24 Large Platelets Not Reportable 03/31/18 07:24 Giant Platelets Not Reportable 03/31/18 07:24 Platelet Satelliting Not Reportable 03/31/18 07:24 Plt Morphology Comment Not Reportable 03/31/18 07:24 RBC Morphology Normal 03/31/18 07:24 Dimorphic RBCs Not Reportable 03/31/18 07:24 Polychromasia Not Reportable 03/31/18 07:24 Hypochromasia Not Reportable 03/31/18 07:24 Poikilocytosis Not Reportable 03/31/18 07:24 Anisocytosis Not Reportable 03/31/18 07:24 Microcytosis Not Reportable 03/31/18 07:24 Macrocytosis Not Reportable 03/31/18 07:24 Spherocytes Not Reportable 03/31/18 07:24 Pappenheimer Bodies Not Reportable 03/31/18 07:24 Sickle Cells Not Reportable 03/31/18 07:24 Target Cells Not Reportable 03/31/18 07:24 Tear Drop Cells Not Reportable 03/31/18 07:24 Ovalocytes Not Reportable 03/31/18 07:24 Helmet Cells Not Reportable 03/31/18 07:24 [place] Bodies Not Reportable 03/31/18 07:24 Atkins Rings Not Reportable 03/31/18 07:24 Bison Cells Not Reportable 03/31/18 07:24 Bite Cells Not Reportable 03/31/18 07:24 Crenated Cell Not Reportable 03/31/18 07:24 Elliptocytes Not Reportable 03/31/18 07:24 Acanthocytes (Spur) Not Reportable 03/31/18 07:24 Rouleaux Not Reportable 03/31/18 07:24 Hemoglobin C Crystals Not Reportable 03/31/18 07:24 Schistocytes Not Reportable 03/31/18 07:24 Malaria parasites Not Reportable 03/31/18 07:24 Lev Bodies Not Reportable 03/31/18 07:24 Hem Pathologist Commnt No 03/31/18 07:24 POC ABG pH 7.405 (7.35-7.45) 03/28/18 03:49 POC ABG pCO2 38.6 (35-45) 03/28/18 03:49 POC ABG pO2 102 (80-105) 03/28/18 03:49 POC ABG HCO3 24.2 03/28/18 03:49 POC ABG Total CO2 25 03/28/18 03:49 POC ABG O2 Sat 98 03/28/18 03:49 POC ABG Base Excess 0 03/28/18 03:49 VBG pH 7.000 (7.320-7.420) L* 03/25/18 14:41 FiO2 25 % 03/28/18 03:49 Sodium 134 mmol/L (137-145) L 03/31/18 07:24 Potassium 4.0 mmol/L (3.6-5.0) 03/31/18 07:24 Chloride 100.5 mmol/L (98-107) 03/31/18 07:24 Carbon Dioxide 23 mmol/L (22-30) 03/31/18 07:24 Anion Gap 15 mmol/L 03/31/18 07:24 BUN 36 mg/dL (9-20) H 03/31/18 07:24 Creatinine 1.8 mg/dL (0.8-1.5) H 03/31/18 07:24 Estimated GFR 48 ml/min 03/31/18 07:24 BUN/Creatinine Ratio 20 % 03/31/18 07:24 Glucose 271 mg/dL (75-100) H 03/31/18 07:24 POC Glucose 260 (70-105) H 03/31/18 06:45 Hemoglobin A1c 8.9 % (4-6) H 03/25/18 18:55 Lactic Acid 1.80 mmol/L (0.7-2.0) 03/26/18 04:25 Calcium 7.3 mg/dL (8.4-10.2) L 03/31/18 07:24 Phosphorus 2.70 mg/dL (2.5-4.5) 03/31/18 07:24 Magnesium 2.20 mg/dL (1.7-2.3) 03/25/18 18:55 Iron 54 ug/dL (49-181) 03/28/18 04:35 TIBC 115 mcg/dL (250-450) L 03/28/18 04:35 Transferrin 94 mg/dl (180-329) L 03/28/18 04:35 Ferritin 412.1 ng/mL (13.0-400.0) H 03/28/18 04:35 Total Bilirubin 0.20 mg/dL (0.1-1.2) 03/27/18 03:35 Direct Bilirubin < 0.2 mg/dL (0-0.2) 03/25/18 14:08 Indirect Bilirubin 0.1 mg/dL 03/25/18 14:08 AST 44 units/L (5-40) H 03/27/18 03:35 ALT 28 units/L (7-56) 03/27/18 03:35 Alkaline Phosphatase 128 units/L (35-129) 03/27/18 03:35 Total Creatine Kinase 226 units/L (55-170) H 03/25/18 18:09 CK-MB (CK-2) 3.7 ng/mL (0.0-4.0) 03/25/18 18:09 CK-MB (CK-2) Rel Index 1.6 (0-4) 03/25/18 18:09 Troponin T 0.033 ng/mL (0.00-0.029) H 03/25/18 18:09 Total Protein 5.1 g/dL (6.3-8.2) L D 03/27/18 03:35 Albumin 2.1 g/dL (3.9-5) L 03/27/18 03:35 Albumin/Globulin Ratio 0.7 % 03/27/18 03:35 Triglycerides 185 mg/dL (2-149) H 03/25/18 18:09 Cholesterol 215 mg/dL (50-199) H 03/25/18 18:09 LDL Cholesterol Direct 144 mg/dL (50-130) H 03/25/18 18:09 HDL Cholesterol 48 mg/dL (40-59) 03/25/18 18:09 Cholesterol/HDL Ratio 4.47 % 03/25/18 18:09 Urine Color Yellow (Yellow) 03/25/18 14:00 Urine Turbidity Clear (Clear) 03/25/18 14:00 Urine pH 5.0 (5.0-7.0) 03/25/18 14:00 Ur Specific [place] 1.021 (1.003-1.030) 03/25/18 14:00 Urine Protein 100 mg/dl mg/dL (Negative) 03/25/18 14:00 Urine Glucose (UA) >=500 mg/dL (Negative) 03/25/18 14:00 Urine Ketones 80 mg/dL (Negative) 03/25/18 14:00 Urine Blood Sm (Negative) 03/25/18 14:00 Urine Nitrite Neg (Negative) 03/25/18 14:00 Urine Bilirubin Neg (Negative) 03/25/18 14:00 Urine Urobilinogen < 2.0 mg/dL (<2.0) 03/25/18 14:00 Ur Leukocyte Esterase Neg (Negative) 03/25/18 14:00 Urine WBC (Auto) 1.0 /HPF (0.0-6.0) 03/25/18 14:00 Urine RBC (Auto) 1.0 /HPF (0.0-6.0) 03/25/18 14:00 Urine Bacteria (Auto) 1+ /HPF (Negative) 03/25/18 14:00 Urine Mucus Few /HPF 03/25/18 14:00 Urine Opiates Screen Presumptive negative 03/25/18 14:19 Urine Methadone Screen Presumptive negative 03/25/18 14:19 Ur Barbiturates Screen Presumptive negative 03/25/18 14:19 Ur Phencyclidine Scrn Presumptive negative 03/25/18 14:19 Ur Amphetamines Screen Presumptive negative 03/25/18 14:19 U Benzodiazepines Scrn Presumptive negative 03/25/18 14:19 Urine Cocaine Screen Presumptive negative 03/25/18 14:19 U Marijuana (THC) Screen Presumptive negative 03/25/18 14:19 Drugs of Abuse Note Disclamer 03/25/18 14:19
--- NOTE | 2018-03-31 11:07 | Progress Note ---
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: -Cr trending up. Will give albumin q6h X 3 doses. -Renally dose meds -Strict intake and output -Obtain daily weight Acute Respiratory Failure: -extubated -Pulmonology on board DKA: -Improving -Per primary Essential Hypertension: -Titrate BP meds PRN to keep SBP <130 Glen Dimas MD [phone] Subjective Date of service: 03/31/18 Principal diagnosis: Acute hypoxic respiratory failure, DKA, BELKIS, Acute encephalopathy Interval history: Feels tired. Family at bedside. Objective - Exam Narrative Exam: General appearance: well-developed, well-nourished EENT: ATNC, PERRL, mucous membranes moist Neck: no JVD, no carotid bruit Respiratory: Present: Clear to Ascultation. Absent: Rales, Ronchi Cardiology: regular, S1S2 Gastrointestinal: normoactive bowel sounds, no tenderness, no distended Integumentary: no rash, warm and dry Neurologic: no focal deficit, no asterixis Musculoskeletal: other (no edema in BLE) Psychiatric: cooperative - Vital Signs Vital signs: Vital Signs - 12hr 03/30/18 03/31/18 03/31/18 23:56 04:41 08:14 Temperature 99.7 F H 100.7 F H 99.6 F Pulse Rate 89 99 H 93 H Respiratory 18 20 20 Rate Blood Pressure 150/71 162/72 163/76 O2 Sat by Pulse 99 96 96 Oximetry 03/31/18 09:47 Temperature Pulse Rate 93 H Respiratory Rate Blood Pressure 163/76 O2 Sat by Pulse Oximetry - Lab 03/31/18 07:24 03/31/18 07:24 Most recent lab results Calcium 7.3 mg/dL (8.4-10.2) L 03/31/18 07:24 Phosphorus 2.70 mg/dL (2.5-4.5) 03/31/18 07:24 Magnesium 2.20 mg/dL (1.7-2.3) 03/25/18 18:55
[2018-03-31] MEDS: SODIUM CHLORIDE FLUSH SYRINGE 10 ML IV SCH (11:36)
[2018-03-31] MEDS: NACL 0.9% 1000 ML 1,000 ML IV SCH (12:13)
[2018-03-31] MEDS: ALBURX 25% (ALBUMIN) IV SCH ×2 (12:25→17:49)
--- NOTE | 2018-03-31 15:21 | Progress Note ---
Assessment and Plan SIRS possibly from DKA Acute hypoxic respiratory failure s/p MVS Acute encephalopathy( toxic, metabolic) Diabetic ketoacidosis Severe metabolic acidosis Severe Hyperkalemia ( Potassium was 8.1 on admission) BELKIS (acute kidney injury)secondary to severe dehydration BUN/creatinine on March 16 was 41/1.5, on admission was 43/2.5. Hypernatremia -Continue empiric antibiotics for now, follow cultures then de-escalate based on SALOME -Continue with fluid and insulin management per DKA protocol -Change insulin to long acting with scheduled short acting insulin therapy TID -VTE prophylaxis -Stress ulcer prophylaxis -Electrolyte management -Avoid nephrotoxic agents and adjust all medications for CrCl/GFR -CXR prn -Mobility, PT/OT -Address and treat electrolyte abnormalities Subjective Date of service: 03/31/18 Principal diagnosis: Acute hypoxic respiratory failure, DKA, BELKIS, Acute encephalopathy Interval history: Patient was seen and examined. Vitals, labs, medications and chart reviewed. No acute overnight events reported or documented Denies any chest pain, no shortness of breath, no fevers or chills. O2 sats 98% on 2L NC Objective - Exam Narrative Exam: General appearance: well-developed, well-nourished EENT: ATNC, PERRL, mucous membranes moist Neck: no JVD, no carotid bruit Respiratory: Present: Clear to Ascultation. Absent: Rales, Ronchi Cardiology: regular, S1S2, systolic murmur Gastrointestinal: normoactive bowel sounds, no tenderness, no distended Integumentary: no rash, warm and dry Neurologic: no focal deficit, no asterixis Musculoskeletal: other (no edema in BLE) Psychiatric: cooperative Vital Signs - 12hr 03/31/18 03/31/18 03/31/18 04:41 08:14 09:47 Temperature 100.7 F H 99.6 F Pulse Rate 99 H 93 H 93 H Pulse Rate [ From Monitor] Respiratory 20 20 Rate Blood Pressure 162/72 163/76 163/76 O2 Sat by Pulse 96 96 Oximetry 03/31/18 10:00 Temperature Pulse Rate 103 H Pulse Rate [ 93 H From Monitor] Respiratory 20 Rate Blood Pressure O2 Sat by Pulse 96 Oximetry Constitutional: no acute distress, other (middle aged AAM, normocephalic and atraumatic) Eyes: non-icteric ENT: oropharynx moist, other (mallampatti 2) Neck: supple, no lymphadenopathy, no JVD, other (no thyromegaly) Effort: normal Ascultation: Bilateral: diminished breath sounds, rhonchi (posterior base) Percussion: Bilateral: not dull Cardiovascular: regular rate and rhythm, other (No R/M) Gastrointestinal: normoactive bowel sounds, soft, non-tender, non-distended, other ( No HSM) Integumentary: normal Extremities: no cyanosis, pulses normal, no ischemia or petechiae, edema (to hands) Neurologic: normal mental status, non-focal exam (grossly), pupils equal and round, CN II-XII normal, motor strength normal and Psychiatric: mood appropriate, affect normal CBC and BMP: 04/08/18 05:38 04/09/18 10:08 ABG, PT/INR, D-dimer: ABG POC ABG pH 7.405 (7.35-7.45) 03/28/18 03:49 POC ABG pCO2 38.6 (35-45) 03/28/18 03:49 POC ABG pO2 102 (80-105) 03/28/18 03:49 POC ABG HCO3 24.2 03/28/18 03:49 POC ABG Total CO2 25 03/28/18 03:49 POC ABG O2 Sat 98 03/28/18 03:49 Abnormal lab findings: Abnormal Labs 03/25/18 03/25/18 03/25/18 13:48 14:00 14:00 WBC 15.3 H RBC Hgb 10.5 L Hct MCV 95 H MCH 27 L MCHC 28 L RDW Plt Count Lymph % (Auto) 8.5 L [place] % (Auto) Lymph # [place] # Seg Neutrophils % 86.4 H Seg Neuts % (Manual) Lymphocytes % (Manual) Monocytes % (Manual) Seg Neutrophils # 13.2 H Lymphocytes # (Manual) Monocytes # (Manual) POC ABG pH POC ABG pCO2 POC ABG pO2 VBG pH Sodium 132 L Potassium 8.1 H* Chloride 87.8 L Carbon Dioxide 3 L* BUN 43 H Creatinine 2.6 H Glucose 1026 H* POC Glucose > 500 H Hemoglobin A1c Lactic Acid Calcium Phosphorus TIBC Transferrin Ferritin AST Total Creatine Kinase Troponin T Total Protein Albumin Triglycerides Cholesterol LDL Cholesterol Direct 03/25/18 03/25/18 03/25/18 14:00 14:08 14:29 WBC RBC Hgb Hct MCV MCH MCHC RDW Plt Count Lymph % (Auto) [place] % (Auto) Lymph # [place] # Seg Neutrophils % Seg Neuts % (Manual) Lymphocytes % (Manual) Monocytes % (Manual) Seg Neutrophils # Lymphocytes # (Manual) Monocytes # (Manual) POC ABG pH 6.952 L POC ABG pCO2 25.8 L POC ABG pO2 559 H VBG pH Sodium Potassium Chloride Carbon Dioxide BUN Creatinine Glucose POC Glucose Hemoglobin A1c Lactic Acid 10.10 H* Calcium Phosphorus 8.70 H TIBC Transferrin Ferritin AST Total Creatine Kinase Troponin T Total Protein Albumin 2.6 L Triglycerides Cholesterol LDL Cholesterol Direct 03/25/18 03/25/18 03/25/18 14:41 15:40 15:40 WBC RBC Hgb Hct MCV MCH MCHC RDW Plt Count Lymph % (Auto) [place] % (Auto) Lymph # [place] # Seg Neutrophils % Seg Neuts % (Manual) Lymphocytes % (Manual) Monocytes % (Manual) Seg Neutrophils # Lymphocytes # (Manual) Monocytes # (Manual) POC ABG pH POC ABG pCO2 POC ABG pO2 VBG pH 7.000 L* Sodium Potassium 6.7 H* Chloride 97.5 L Carbon Dioxide 5 L* BUN 43 H Creatinine 2.5 H Glucose 893 H* POC Glucose Hemoglobin A1c Lactic Acid Calcium 7.5 L Phosphorus 9.10 H TIBC Transferrin Ferritin AST Total Creatine Kinase Troponin T Total Protein Albumin Triglycerides Cholesterol LDL Cholesterol Direct 03/25/18 03/25/18 03/25/18 18:09 18:12 18:55 WBC RBC Hgb Hct MCV MCH MCHC RDW Plt Count Lymph % (Auto) [place] % (Auto) Lymph # [place] # Seg Neutrophils % Seg Neuts % (Manual) Lymphocytes % (Manual) Monocytes % (Manual) Seg Neutrophils # Lymphocytes # (Manual) Monocytes # (Manual) POC ABG pH POC ABG pCO2 POC ABG pO2 VBG pH Sodium 133 L Potassium 5.7 H Chloride 93.1 L Carbon Dioxide 10 L BUN 43 H Creatinine 2.5 H Glucose 786 H* POC Glucose Hemoglobin A1c 8.9 H Lactic Acid Calcium 7.8 L Phosphorus TIBC Transferrin Ferritin AST Total Creatine Kinase 226 H Troponin T 0.033 H Total Protein Albumin Triglycerides 185 H Cholesterol 215 H LDL Cholesterol Direct 144 H 03/25/18 03/25/18 03/25/18 18:55 21:00 21:03 WBC RBC Hgb Hct MCV MCH MCHC RDW Plt Count Lymph % (Auto) [place] % (Auto) Lymph # [place] # Seg Neutrophils % Seg Neuts % (Manual) Lymphocytes % (Manual) Monocytes % (Manual) Seg Neutrophils # Lymphocytes # (Manual) Monocytes # (Manual) POC ABG pH POC ABG pCO2 POC ABG pO2 VBG pH Sodium 136 L Potassium 6.7 H* Chloride Carbon Dioxide 7 L* BUN 45 H Creatinine 2.6 H Glucose 879 H* POC Glucose > 500 H Hemoglobin A1c Lactic Acid Calcium 7.8 L Phosphorus 9.20 H TIBC Transferrin Ferritin AST Total Creatine Kinase Troponin T Total Protein Albumin Triglycerides Cholesterol LDL Cholesterol Direct 03/25/18 03/25/18 03/25/18 21:39 22:06 23:20 WBC RBC Hgb Hct MCV MCH MCHC RDW Plt Count Lymph % (Auto) [place] % (Auto) Lymph # [place] # Seg Neutrophils % Seg Neuts % (Manual) Lymphocytes % (Manual) Monocytes % (Manual) Seg Neutrophils # Lymphocytes # (Manual) Monocytes # (Manual) POC ABG pH 7.272 L POC ABG pCO2 14.2 L POC ABG pO2 263 H VBG pH Sodium Potassium Chloride Carbon Dioxide 7 L* BUN 47 H Creatinine 2.9 H Glucose 702 H* POC Glucose > 500 H Hemoglobin A1c Lactic Acid Calcium 7.6 L Phosphorus TIBC Transferrin Ferritin AST Total Creatine Kinase Troponin T Total Protein Albumin Triglycerides Cholesterol LDL Cholesterol Direct 03/25/18 03/26/18 03/26/18 23:20 00:17 01:08 WBC RBC Hgb Hct MCV MCH MCHC RDW Plt Count Lymph % (Auto) [place] % (Auto) Lymph # [place] # Seg Neutrophils % Seg Neuts % (Manual) Lymphocytes % (Manual) Monocytes % (Manual) Seg Neutrophils # Lymphocytes # (Manual) Monocytes # (Manual) POC ABG pH POC ABG pCO2 POC ABG pO2 VBG pH Sodium Potassium Chloride Carbon Dioxide BUN Creatinine Glucose POC Glucose > 500 H 447 H 484 H Hemoglobin A1c Lactic Acid Calcium Phosphorus TIBC Transferrin Ferritin AST Total Creatine Kinase Troponin T Total Protein Albumin Triglycerides Cholesterol LDL Cholesterol Direct 03/26/18 03/26/18 03/26/18 02:31 03:07 04:09 WBC RBC Hgb Hct MCV MCH MCHC RDW Plt Count Lymph % (Auto) [place] % (Auto) Lymph # [place] # Seg Neutrophils % Seg Neuts % (Manual) Lymphocytes % (Manual) Monocytes % (Manual) Seg Neutrophils # Lymphocytes # (Manual) Monocytes # (Manual) POC ABG pH POC ABG pCO2 POC ABG pO2 VBG pH Sodium Potassium Chloride Carbon Dioxide BUN Creatinine Glucose POC Glucose > 500 H 467 H 361 H Hemoglobin A1c Lactic Acid Calcium Phosphorus TIBC Transferrin Ferritin AST Total Creatine Kinase Troponin T Total Protein Albumin Triglycerides Cholesterol LDL Cholesterol Direct 03/26/18 03/26/18 03/26/18 04:25 05:24 06:19 WBC RBC Hgb Hct MCV MCH MCHC RDW Plt Count Lymph % (Auto) [place] % (Auto) Lymph # [place] # Seg Neutrophils % Seg Neuts % (Manual) Lymphocytes % (Manual) Monocytes % (Manual) Seg Neutrophils # Lymphocytes # (Manual) Monocytes # (Manual) POC ABG pH POC ABG pCO2 POC ABG pO2 VBG pH Sodium 150 H D Potassium 3.4 L D Chloride 118.3 H Carbon Dioxide 16 L D BUN 45 H Creatinine 2.7 H Glucose 278 H POC Glucose 306 H 188 H Hemoglobin A1c Lactic Acid Calcium 7.7 L Phosphorus TIBC Transferrin Ferritin AST Total Creatine Kinase Troponin T Total Protein Albumin Triglycerides Cholesterol LDL Cholesterol Direct 03/26/18 03/26/18 03/26/18 07:09 08:20 09:12 WBC RBC Hgb Hct MCV MCH MCHC RDW Plt Count Lymph % (Auto) [place] % (Auto) Lymph # [place] # Seg Neutrophils % Seg Neuts % (Manual) Lymphocytes % (Manual) Monocytes % (Manual) Seg Neutrophils # Lymphocytes # (Manual) Monocytes # (Manual) POC ABG pH 7.530 H POC ABG pCO2 22.0 L POC ABG pO2 147 H VBG pH Sodium Potassium Chloride Carbon Dioxide BUN Creatinine Glucose POC Glucose 148 H 170 H Hemoglobin A1c Lactic Acid Calcium Phosphorus TIBC Transferrin Ferritin AST Total Creatine Kinase Troponin T Total Protein Albumin Triglycerides Cholesterol LDL Cholesterol Direct 03/26/18 03/26/18 03/26/18 09:15 10:30 10:46 WBC RBC Hgb Hct MCV MCH MCHC RDW Plt Count Lymph % (Auto) [place] % (Auto) Lymph # [place] # Seg Neutrophils % Seg Neuts % (Manual) Lymphocytes % (Manual) Monocytes % (Manual) Seg Neutrophils # Lymphocytes # (Manual) Monocytes # (Manual) POC ABG pH POC ABG pCO2 POC ABG pO2 VBG pH Sodium 152 H Potassium 3.1 L Chloride 121.4 H Carbon Dioxide BUN 43 H Creatinine 2.6 H Glucose 105 H POC Glucose 177 H 125 H Hemoglobin A1c Lactic Acid Calcium 7.5 L Phosphorus TIBC Transferrin Ferritin AST Total Creatine Kinase Troponin T Total Protein Albumin Triglycerides Cholesterol LDL Cholesterol Direct 03/26/18 03/26/18 03/26/18 14:57 15:35 18:12 WBC RBC Hgb Hct MCV MCH MCHC RDW Plt Count Lymph % (Auto) [place] % (Auto) Lymph # [place] # Seg Neutrophils % Seg Neuts % (Manual) Lymphocytes % (Manual) Monocytes % (Manual) Seg Neutrophils # Lymphocytes # (Manual) Monocytes # (Manual) POC ABG pH POC ABG pCO2 POC ABG pO2 VBG pH Sodium 148 H Potassium Chloride 117.5 H Carbon Dioxide 18 L BUN 43 H Creatinine 2.5 H Glucose 135 H POC Glucose 159 H 245 H Hemoglobin A1c Lactic Acid Calcium 7.3 L Phosphorus TIBC Transferrin Ferritin AST Total Creatine Kinase Troponin T Total Protein Albumin Triglycerides Cholesterol LDL Cholesterol Direct 03/26/18 03/26/18 03/27/18 19:27 21:42 02:03 WBC RBC Hgb Hct MCV MCH MCHC RDW Plt Count Lymph % (Auto) [place] % (Auto) Lymph # [place] # Seg Neutrophils % Seg Neuts % (Manual) Lymphocytes % (Manual) Monocytes % (Manual) Seg Neutrophils # Lymphocytes # (Manual) Monocytes # (Manual) POC ABG pH POC ABG pCO2 POC ABG pO2 VBG pH Sodium Potassium Chloride 115.0 H Carbon Dioxide 20 L BUN 42 H Creatinine 2.4 H Glucose 221 H POC Glucose 261 H 254 H Hemoglobin A1c Lactic Acid Calcium 7.1 L Phosphorus TIBC Transferrin Ferritin AST Total Creatine Kinase Troponin T Total Protein Albumin Triglycerides Cholesterol LDL Cholesterol Direct 03/27/18 03/27/18 03/27/18 03:35 03:35 05:20 WBC 12.3 H RBC 3.05 L Hgb 8.3 L Hct 25.3 L D MCV 83 L MCH 27 L MCHC RDW Plt Count Lymph % (Auto) [place] % (Auto) 8.6 H Lymph # [place] # 1.1 H Seg Neutrophils % 76.5 H Seg Neuts % (Manual) Lymphocytes % (Manual) Monocytes % (Manual) Seg Neutrophils # 9.4 H Lymphocytes # (Manual) Monocytes # (Manual) POC ABG pH POC ABG pCO2 POC ABG pO2 VBG pH Sodium Potassium Chloride 112.6 H Carbon Dioxide BUN 36 H Creatinine 2.1 H Glucose 244 H POC Glucose 263 H Hemoglobin A1c Lactic Acid Calcium 7.1 L Phosphorus TIBC Transferrin Ferritin AST 44 H Total Creatine Kinase Troponin T Total Protein 5.1 L D Albumin 2.1 L Triglycerides Cholesterol LDL Cholesterol Direct 03/27/18 03/27/18 03/27/18 08:22 13:00 14:06 WBC RBC Hgb Hct MCV MCH MCHC RDW Plt Count Lymph % (Auto) [place] % (Auto) Lymph # [place] # Seg Neutrophils % Seg Neuts % (Manual) Lymphocytes % (Manual) Monocytes % (Manual) Seg Neutrophils # Lymphocytes # (Manual) Monocytes # (Manual) POC ABG pH POC ABG pCO2 34.7 L POC ABG pO2 VBG pH Sodium Potassium Chloride Carbon Dioxide BUN Creatinine Glucose POC Glucose 306 H 233 H Hemoglobin A1c Lactic Acid Calcium Phosphorus TIBC Transferrin Ferritin AST Total Creatine Kinase Troponin T Total Protein Albumin Triglycerides Cholesterol LDL Cholesterol Direct 03/27/18 03/27/18 03/27/18 16:15 18:11 21:44 WBC RBC Hgb Hct MCV MCH MCHC RDW Plt Count Lymph % (Auto) [place] % (Auto) Lymph # [place] # Seg Neutrophils % Seg Neuts % (Manual) Lymphocytes % (Manual) Monocytes % (Manual) Seg Neutrophils # Lymphocytes # (Manual) Monocytes # (Manual) POC ABG pH POC ABG pCO2 POC ABG pO2 VBG pH Sodium Potassium Chloride Carbon Dioxide BUN Creatinine Glucose POC Glucose 243 H 226 H 224 H Hemoglobin A1c Lactic Acid Calcium Phosphorus TIBC Transferrin Ferritin AST Total Creatine Kinase Troponin T Total Protein Albumin Triglycerides Cholesterol LDL Cholesterol Direct 03/28/18 03/28/18 03/28/18 02:07 04:35 04:35 WBC RBC Hgb Hct MCV MCH MCHC RDW Plt Count Lymph % (Auto) [place] % (Auto) Lymph # [place] # Seg Neutrophils % Seg Neuts % (Manual) Lymphocytes % (Manual) Monocytes % (Manual) Seg Neutrophils # Lymphocytes # (Manual) Monocytes # (Manual) POC ABG pH POC ABG pCO2 POC ABG pO2 VBG pH Sodium Potassium Chloride Carbon Dioxide BUN Creatinine Glucose POC Glucose 220 H Hemoglobin A1c Lactic Acid Calcium Phosphorus TIBC 115 L Transferrin 94 L Ferritin 412.1 H AST Total Creatine Kinase Troponin T Total Protein Albumin Triglycerides Cholesterol LDL Cholesterol Direct 03/28/18 03/28/18 03/28/18 05:27 09:52 10:59 WBC RBC 3.22 L Hgb 9.1 L Hct 26.8 L MCV 83 L MCH MCHC RDW Plt Count 134 L Lymph % (Auto) [place] % (Auto) Lymph # [place] # Seg Neutrophils % Seg Neuts % (Manual) Lymphocytes % (Manual) Monocytes % (Manual) Seg Neutrophils # Lymphocytes # (Manual) Monocytes # (Manual) POC ABG pH POC ABG pCO2 POC ABG pO2 VBG pH Sodium Potassium Chloride Carbon Dioxide BUN Creatinine Glucose POC Glucose 280 H 332 H Hemoglobin A1c Lactic Acid Calcium Phosphorus TIBC Transferrin Ferritin AST Total Creatine Kinase Troponin T Total Protein Albumin Triglycerides Cholesterol LDL Cholesterol Direct 03/28/18 03/28/18 03/28/18 10:59 14:39 17:47 WBC RBC Hgb Hct MCV MCH MCHC RDW Plt Count Lymph % (Auto) [place] % (Auto) Lymph # [place] # Seg Neutrophils % Seg Neuts % (Manual) Lymphocytes % (Manual) Monocytes % (Manual) Seg Neutrophils # Lymphocytes # (Manual) Monocytes # (Manual) POC ABG pH POC ABG pCO2 POC ABG pO2 VBG pH Sodium 136 L Potassium Chloride Carbon Dioxide BUN 29 H Creatinine Glucose 310 H POC Glucose 250 H 132 H Hemoglobin A1c Lactic Acid Calcium 7.0 L Phosphorus TIBC Transferrin Ferritin AST Total Creatine Kinase Troponin T Total Protein Albumin Triglycerides Cholesterol LDL Cholesterol Direct 03/29/18 03/29/18 03/29/18 01:49 04:23 05:45 WBC RBC 3.13 L Hgb 8.8 L Hct 25.8 L MCV 82 L MCH MCHC RDW 12.7 L Plt Count 132 L Lymph % (Auto) 10.8 L [place] % (Auto) 9.1 H Lymph # 1.0 L [place] # Seg Neutrophils % 79.1 H Seg Neuts % (Manual) Lymphocytes % (Manual) Monocytes % (Manual) Seg Neutrophils # Lymphocytes # (Manual) Monocytes # (Manual) POC ABG pH POC ABG pCO2 POC ABG pO2 VBG pH Sodium 134 L Potassium Chloride Carbon Dioxide BUN 27 H Creatinine Glucose 172 H POC Glucose 122 H Hemoglobin A1c Lactic Acid Calcium 7.1 L Phosphorus TIBC Transferrin Ferritin AST Total Creatine Kinase Troponin T Total Protein Albumin Triglycerides Cholesterol LDL Cholesterol Direct 03/29/18 03/29/18 03/29/18 05:57 09:19 13:09 WBC RBC Hgb Hct MCV MCH MCHC RDW Plt Count Lymph % (Auto) [place] % (Auto) Lymph # [place] # Seg Neutrophils % Seg Neuts % (Manual) Lymphocytes % (Manual) Monocytes % (Manual) Seg Neutrophils # Lymphocytes # (Manual) Monocytes # (Manual) POC ABG pH POC ABG pCO2 POC ABG pO2 VBG pH Sodium Potassium Chloride Carbon Dioxide BUN Creatinine Glucose POC Glucose 224 H 316 H 345 H Hemoglobin A1c Lactic Acid Calcium Phosphorus TIBC Transferrin Ferritin AST Total Creatine Kinase Troponin T Total Protein Albumin Triglycerides Cholesterol LDL Cholesterol Direct 03/29/18 03/30/18 03/30/18 16:27 00:07 05:12 WBC RBC Hgb Hct MCV MCH MCHC RDW Plt Count Lymph % (Auto) [place] % (Auto) Lymph # [place] # Seg Neutrophils % Seg Neuts % (Manual) Lymphocytes % (Manual) Monocytes % (Manual) Seg Neutrophils # Lymphocytes # (Manual) Monocytes # (Manual) POC ABG pH POC ABG pCO2 POC ABG pO2 VBG pH Sodium Potassium Chloride Carbon Dioxide BUN Creatinine Glucose POC Glucose 210 H 69 L 213 H Hemoglobin A1c Lactic Acid Calcium Phosphorus TIBC Transferrin Ferritin AST Total Creatine Kinase Troponin T Total Protein Albumin Triglycerides Cholesterol LDL Cholesterol Direct 03/30/18 03/30/18 03/30/18 06:39 06:39 10:06 WBC RBC 2.95 L Hgb 8.3 L Hct 24.6 L MCV 83 L MCH MCHC RDW 12.9 L Plt Count Lymph % (Auto) [place] % (Auto) 13.5 H Lymph # [place] # 0.9 H Seg Neutrophils % Seg Neuts % (Manual) Lymphocytes % (Manual) Monocytes % (Manual) Seg Neutrophils # Lymphocytes # (Manual) Monocytes # (Manual) POC ABG pH POC ABG pCO2 POC ABG pO2 VBG pH Sodium 133 L Potassium 3.5 L D Chloride 95.6 L Carbon Dioxide BUN 34 H Creatinine Glucose 241 H POC Glucose 368 H Hemoglobin A1c Lactic Acid Calcium 7.3 L Phosphorus TIBC Transferrin Ferritin AST Total Creatine Kinase Troponin T Total Protein Albumin Triglycerides Cholesterol LDL Cholesterol Direct 03/30/18 03/30/18 03/30/18 13:59 16:39 20:47 WBC RBC Hgb Hct MCV MCH MCHC RDW Plt Count Lymph % (Auto) [place] % (Auto) Lymph # [place] # Seg Neutrophils % Seg Neuts % (Manual) Lymphocytes % (Manual) Monocytes % (Manual) Seg Neutrophils # Lymphocytes # (Manual) Monocytes # (Manual) POC ABG pH POC ABG pCO2 POC ABG pO2 VBG pH Sodium Potassium Chloride Carbon Dioxide BUN Creatinine Glucose POC Glucose 237 H 176 H 60 L Hemoglobin A1c Lactic Acid Calcium Phosphorus TIBC Transferrin Ferritin AST Total Creatine Kinase Troponin T Total Protein Albumin Triglycerides Cholesterol LDL Cholesterol Direct 03/30/18 03/31/18 03/31/18 21:30 02:07 06:45 WBC RBC Hgb Hct MCV MCH MCHC RDW Plt Count Lymph % (Auto) [place] % (Auto) Lymph # [place] # Seg Neutrophils % Seg Neuts % (Manual) Lymphocytes % (Manual) Monocytes % (Manual) Seg Neutrophils # Lymphocytes # (Manual) Monocytes # (Manual) POC ABG pH POC ABG pCO2 POC ABG pO2 VBG pH Sodium Potassium Chloride Carbon Dioxide BUN Creatinine Glucose POC Glucose 113 H 140 H 260 H Hemoglobin A1c Lactic Acid Calcium Phosphorus TIBC Transferrin Ferritin AST Total Creatine Kinase Troponin T Total Protein Albumin Triglycerides Cholesterol LDL Cholesterol Direct 03/31/18 03/31/18 03/31/18 07:24 07:24 11:51 WBC RBC 3.06 L Hgb 8.6 L Hct 25.3 L MCV 83 L MCH MCHC RDW 12.7 L Plt Count Lymph % (Auto) [place] % (Auto) Lymph # [place] # Seg Neutrophils % Seg Neuts % (Manual) 73.0 H Lymphocytes % (Manual) 6.0 L Monocytes % (Manual) 21.0 H Seg Neutrophils # Lymphocytes # (Manual) 0.4 L Monocytes # (Manual) 1.4 H POC ABG pH POC ABG pCO2 POC ABG pO2 VBG pH Sodium 134 L Potassium Chloride Carbon Dioxide BUN 36 H Creatinine 1.8 H Glucose 271 H POC Glucose > 500 H Hemoglobin A1c Lactic Acid Calcium 7.3 L Phosphorus TIBC Transferrin Ferritin AST Total Creatine Kinase Troponin T Total Protein Albumin Triglycerides Cholesterol LDL Cholesterol Direct 03/31/18 03/31/18 13:08 14:00 WBC RBC Hgb Hct MCV MCH MCHC RDW Plt Count Lymph % (Auto) [place] % (Auto) Lymph # [place] # Seg Neutrophils % Seg Neuts % (Manual) Lymphocytes % (Manual) Monocytes % (Manual) Seg Neutrophils # Lymphocytes # (Manual) Monocytes # (Manual) POC ABG pH POC ABG pCO2 POC ABG pO2 VBG pH Sodium Potassium Chloride Carbon Dioxide BUN Creatinine Glucose POC Glucose > 500 H > 500 H Hemoglobin A1c Lactic Acid Calcium Phosphorus TIBC Transferrin Ferritin AST Total Creatine Kinase Troponin T Total Protein Albumin Triglycerides Cholesterol LDL Cholesterol Direct Allied health notes reviewed: nursing
[2018-04-01] MEDS: ALBURX 25% (ALBUMIN) IV SCH (01:18)
[2018-04-01] MEDS: SODIUM CHLORIDE FLUSH SYRINGE 10 ML IV SCH ×2 (01:22→09:29)
[2018-04-01] MEDS: HEPARIN SUB-Q SCH (05:35)
[2018-04-01] MEDS: NACL 0.9% 1000 ML 1,000 ML IV SCH (05:39)
[2018-04-01 06:25] LABS: Hematocrit 21.2 % (35.5-45.6); Hemoglobin 7.1 gm/dl (11.8-15.2); Mean Corpuscular HGB Conc 34 % (32-34); Mean Corpuscular Hemoglobin 28 pg (28-32); Mean Corpuscular Volume 83 fl (84-94); Platelet Count 261 K/mm3 (140-440); Red Blood Count 2.55 M/mm3 (3.65-5.03); Red Cell Distribution Width 12.5 % (13.2-15.2)
[2018-04-01 06:35] LABS: Calcium 7.3 mg/dL (8.4-10.2)
[2018-04-01] MEDS: HumuLIN R SUB-Q SCH ×4 (07:56→22:35)
[2018-04-01 08:56] LABS: Basophils % (Manual) 0 % (0.0-1.8); Total Cells Counted 100
[2018-04-01 08:57] LABS: Platelet Estimate Consistent w Auto; RBC Morphology Normal
[2018-04-01] MEDS: MINIPRESS PO SCH ×2 (09:27→22:37)
[2018-04-01] MEDS: PROzac PO SCH (09:28)
[2018-04-01] MEDS: COREG PO SCH ×2 (09:28→22:37)
[2018-04-01] MEDS: PEPCID PO SCH ×2 (09:29→22:38)
--- NOTE | 2018-04-01 10:44 | Progress Note ---
Assessment and Plan Assessment and plan: --Severe anemia; no external evidence of bleeding Possible GI bleeding, stool for occult blood, GI consultation Hemoglobin was 10 on admission, gradually decreased to 7.1 today Type and cross, transfuse 1 unit of PRBC, --Uncontrolled blood sugars; Moderate control; Accu-Chek sliding scale coverage and ADA diet, long-acting insulin Closely monitor blood sugars and adjust insulin dose as needed --DKA (diabetic ketoacidoses); resolved BG was 1026, with pH of 6.9, AG 49 at the time of admission now off insulin drip, on long-acting insulin twice a day dose Sliding scale coverage high-dose scale, A1c 8.9 On ADA diet --Acute respiratory failure; saturating well on nasal cannula oxygen s/p ventilator management and support, extubated 03/28 Continued nebs, evaluation for home oxygen at discharge --Hyperkalemia; resolved --BELKIS (acute kidney injury)secondary to severe dehydration Due to ATN, trending down --SIRS, Received empiric antibiotics Cultures negative to date --Metabolic acidosis due to DKA and renal failure Admission to improve continue supportive care --Hypernatremia, resolved --Hypertension,moderate control Continue current antihypertensives and when necessary medications --DVT prophylaxis Heparin subcutaneously 5000 units every 8 hours Plan of care reviewed with the patient and his nurse Closely monitor blood sugars Possible home health nurse for disease monitoring at discharge Possible discharge in 1-2 days if stable History Interval history: Patient seen and examined medical records reviewed No new events reported by the nursing Complaints of constipation Looks diaphoretic and pale Hemoglobin today 7.1, no evidence of bleeding Vital signs reviewed Hospitalist Physical - Constitutional Vitals: Temp Pulse Resp BP Pulse Ox 99.1 F 88 20 147/70 94 04/01/18 08:16 04/01/18 09:28 04/01/18 08:16 04/01/18 09:28 04/01/18 08:16 General appearance: Present: no acute distress, well-nourished - EENT Eyes: Present: PERRL, EOM intact ENT: hearing intact, clear oral mucosa - Neck Neck: Present: supple, normal ROM - Cardiovascular Rhythm: regular Heart Sounds: Present: S1 & S2 - Extremities Extremities: no ischemia, No edema - Abdominal General gastrointestinal: soft, non-tender, non-distended, normal bowel sounds - Integumentary Integumentary: Present: clear, warm, pale - Psychiatric Psychiatric: appropriate mood/affect, cooperative - Neurologic Neurologic: CNII-XII intact, moves all extremities Results - Labs CBC & Chem 7: 04/01/18 05:51 04/01/18 05:51 Labs: Laboratory Last Values WBC 5.1 K/mm3 (4.5-11.0) 04/01/18 05:51 RBC 2.55 M/mm3 (3.65-5.03) L 04/01/18 05:51 Hgb 7.1 gm/dl (11.8-15.2) L 04/01/18 05:51 Hct 21.2 % (35.5-45.6) L 04/01/18 05:51 MCV 83 fl (84-94) L 04/01/18 05:51 MCH 28 pg (28-32) 04/01/18 05:51 MCHC 34 % (32-34) 04/01/18 05:51 RDW 12.5 % (13.2-15.2) L 04/01/18 05:51 Plt Count 261 K/mm3 (140-440) 04/01/18 05:51 Lymph % (Auto) 20.2 % (13.4-35.0) 03/30/18 06:39 [place] % (Auto) Drying Room Attendant 04/01/18 05:51 Eos % (Auto) 1.7 % (0.0-4.3) 03/30/18 06:39 Baso % (Auto) 0.5 % (0.0-1.8) 03/30/18 06:39 Lymph # 1.3 K/mm3 (1.2-5.4) 03/30/18 06:39 [place] # 0.9 K/mm3 (0.0-0.8) H 03/30/18 06:39 Eos # 0.1 K/mm3 (0.0-0.4) 03/30/18 06:39 Baso # 0.0 K/mm3 (0.0-0.1) 03/30/18 06:39 Add Manual Diff Complete 04/01/18 05:51 Total Counted 100 04/01/18 05:51 Seg Neutrophils % 64.1 % (40.0-70.0) 03/30/18 06:39 Seg Neuts % (Manual) 47.0 % (40.0-70.0) 04/01/18 05:51 Band Neutrophils % 0 % 04/01/18 05:51 Lymphocytes % (Manual) 28.0 % (13.4-35.0) 04/01/18 05:51 Reactive Lymphs % (Man) 0 % 04/01/18 05:51 Monocytes % (Manual) 22.0 % (0.0-7.3) H 04/01/18 05:51 Eosinophils % (Manual) 3.0 % (0.0-4.3) 04/01/18 05:51 Basophils % (Manual) 0 % (0.0-1.8) 04/01/18 05:51 Metamyelocytes % 0 % 04/01/18 05:51 Myelocytes % 0 % 04/01/18 05:51 Promyelocytes % 0 % 04/01/18 05:51 Blast Cells % 0 % 04/01/18 05:51 Nucleated RBC % Not Reportable 04/01/18 05:51 Seg Neutrophils # 4.2 K/mm3 (1.8-7.7) 03/30/18 06:39 Seg Neutrophils # Man 2.4 K/mm3 (1.8-7.7) 04/01/18 05:51 Band Neutrophils # 0.0 K/mm3 04/01/18 05:51 Lymphocytes # (Manual) 1.4 K/mm3 (1.2-5.4) 04/01/18 05:51 Abs React Lymphs (Man) 0.0 K/mm3 04/01/18 05:51 Monocytes # (Manual) 1.1 K/mm3 (0.0-0.8) H 04/01/18 05:51 Eosinophils # (Manual) 0.2 K/mm3 (0.0-0.4) 04/01/18 05:51 Basophils # (Manual) 0.0 K/mm3 (0.0-0.1) 04/01/18 05:51 Metamyelocytes # 0.0 K/mm3 04/01/18 05:51 Myelocytes # 0.0 K/mm3 04/01/18 05:51 Promyelocytes # 0.0 K/mm3 04/01/18 05:51 Blast Cells # 0.0 K/mm3 04/01/18 05:51 WBC Morphology Not Reportable 04/01/18 05:51 Hypersegmented Neuts Not Reportable 04/01/18 05:51 Hyposegmented Neuts Not Reportable 04/01/18 05:51 Hypogranular Neuts Not Reportable 04/01/18 05:51 Smudge Cells Not Reportable 04/01/18 05:51 Toxic Granulation Not Reportable 04/01/18 05:51 Toxic Vacuolation Not Reportable 04/01/18 05:51 Dohle Bodies Not Reportable 04/01/18 05:51 Pelger-Huet Anomaly Not Reportable 04/01/18 05:51 Loi Rods Not Reportable 04/01/18 05:51 Platelet Estimate Consistent w auto 04/01/18 05:51 Clumped Platelets Not Reportable 04/01/18 05:51 Plt Clumps, EDTA Not Reportable 04/01/18 05:51 Large Platelets Not Reportable 04/01/18 05:51 Giant Platelets Not Reportable 04/01/18 05:51 Platelet Satelliting Not Reportable 04/01/18 05:51 Plt Morphology Comment Not Reportable 04/01/18 05:51 RBC Morphology Normal 04/01/18 05:51 Dimorphic RBCs Not Reportable 04/01/18 05:51 Polychromasia Not Reportable 04/01/18 05:51 Hypochromasia Not Reportable 04/01/18 05:51 Poikilocytosis Not Reportable 04/01/18 05:51 Anisocytosis Not Reportable 04/01/18 05:51 Microcytosis Not Reportable 04/01/18 05:51 Macrocytosis Not Reportable 04/01/18 05:51 Spherocytes Not Reportable 04/01/18 05:51 Pappenheimer Bodies Not Reportable 04/01/18 05:51 Sickle Cells Not Reportable 04/01/18 05:51 Target Cells Not Reportable 04/01/18 05:51 Tear Drop Cells Not Reportable 04/01/18 05:51 Ovalocytes Not Reportable 04/01/18 05:51 Helmet Cells Not Reportable 04/01/18 05:51 [place] Bodies Not Reportable 04/01/18 05:51 [place] Rings Not Reportable 04/01/18 05:51 [place] Cells Not Reportable 04/01/18 05:51 Bite Cells Not Reportable 04/01/18 05:51 Crenated Cell Not Reportable 04/01/18 05:51 Elliptocytes Not Reportable 04/01/18 05:51 Acanthocytes (Spur) Not Reportable 04/01/18 05:51 Rouleaux Not Reportable 04/01/18 05:51 Hemoglobin C Crystals Not Reportable 04/01/18 05:51 Schistocytes Not Reportable 04/01/18 05:51 Malaria parasites Not Reportable 04/01/18 05:51 Lev Bodies Not Reportable 04/01/18 05:51 Hem Pathologist Commnt No 04/01/18 05:51 POC ABG pH 7.405 (7.35-7.45) 03/28/18 03:49 POC ABG pCO2 38.6 (35-45) 03/28/18 03:49 POC ABG pO2 102 (80-105) 03/28/18 03:49 POC ABG HCO3 24.2 03/28/18 03:49 POC ABG Total CO2 25 03/28/18 03:49 POC ABG O2 Sat 98 03/28/18 03:49 POC ABG Base Excess 0 03/28/18 03:49 VBG pH 7.000 (7.320-7.420) L* 03/25/18 14:41 FiO2 25 % 03/28/18 03:49 Sodium 137 mmol/L (137-145) 04/01/18 05:51 Potassium 3.9 mmol/L (3.6-5.0) 04/01/18 05:51 Chloride 103.9 mmol/L (98-107) 04/01/18 05:51 Carbon Dioxide 23 mmol/L (22-30) 04/01/18 05:51 Anion Gap 14 mmol/L 04/01/18 05:51 BUN 35 mg/dL (9-20) H 04/01/18 05:51 Creatinine 1.5 mg/dL (0.8-1.5) 04/01/18 05:51 Estimated GFR 59 ml/min 04/01/18 05:51 BUN/Creatinine Ratio 23 % 04/01/18 05:51 Glucose 120 mg/dL (75-100) H 04/01/18 05:51 POC Glucose 114 (70-105) H 04/01/18 06:52 Hemoglobin A1c 8.9 % (4-6) H 03/25/18 18:55 Lactic Acid 1.80 mmol/L (0.7-2.0) 03/26/18 04:25 Calcium 7.3 mg/dL (8.4-10.2) L 04/01/18 05:51 Phosphorus 3.30 mg/dL (2.5-4.5) D 04/01/18 05:51 Magnesium 2.00 mg/dL (1.7-2.3) 04/01/18 05:51 Iron 54 ug/dL (49-181) 03/28/18 04:35 TIBC 115 mcg/dL (250-450) L 03/28/18 04:35 Transferrin 94 mg/dl (180-329) L 03/28/18 04:35 Ferritin 412.1 ng/mL (13.0-400.0) H 03/28/18 04:35 Total Bilirubin 0.20 mg/dL (0.1-1.2) 03/27/18 03:35 Direct Bilirubin < 0.2 mg/dL (0-0.2) 03/25/18 14:08 Indirect Bilirubin 0.1 mg/dL 03/25/18 14:08 AST 44 units/L (5-40) H 03/27/18 03:35 ALT 28 units/L (7-56) 03/27/18 03:35 Alkaline Phosphatase 128 units/L (35-129) 03/27/18 03:35 Total Creatine Kinase 226 units/L (55-170) H 03/25/18 18:09 CK-MB (CK-2) 3.7 ng/mL (0.0-4.0) 03/25/18 18:09 CK-MB (CK-2) Rel Index 1.6 (0-4) 03/25/18 18:09 Troponin T 0.033 ng/mL (0.00-0.029) H 03/25/18 18:09 Total Protein 5.1 g/dL (6.3-8.2) L D 03/27/18 03:35 Albumin 2.1 g/dL (3.9-5) L 03/27/18 03:35 Albumin/Globulin Ratio 0.7 % 03/27/18 03:35 Triglycerides 185 mg/dL (2-149) H 03/25/18 18:09 Cholesterol 215 mg/dL (50-199) H 03/25/18 18:09 LDL Cholesterol Direct 144 mg/dL (50-130) H 03/25/18 18:09 HDL Cholesterol 48 mg/dL (40-59) 03/25/18 18:09 Cholesterol/HDL Ratio 4.47 % 03/25/18 18:09 Urine Color Yellow (Yellow) 03/25/18 14:00 Urine Turbidity Clear (Clear) 03/25/18 14:00 Urine pH 5.0 (5.0-7.0) 03/25/18 14:00 Ur Specific [place] 1.021 (1.003-1.030) 03/25/18 14:00 Urine Protein 100 mg/dl mg/dL (Negative) 03/25/18 14:00 Urine Glucose (UA) >=500 mg/dL (Negative) 03/25/18 14:00 Urine Ketones 80 mg/dL (Negative) 03/25/18 14:00 Urine Blood Sm (Negative) 03/25/18 14:00 Urine Nitrite Neg (Negative) 03/25/18 14:00 Urine Bilirubin Neg (Negative) 03/25/18 14:00 Urine Urobilinogen < 2.0 mg/dL (<2.0) 03/25/18 14:00 Ur Leukocyte Esterase Neg (Negative) 03/25/18 14:00 Urine WBC (Auto) 1.0 /HPF (0.0-6.0) 03/25/18 14:00 Urine RBC (Auto) 1.0 /HPF (0.0-6.0) 03/25/18 14:00 Urine Bacteria (Auto) 1+ /HPF (Negative) 03/25/18 14:00 Urine Mucus Few /HPF 03/25/18 14:00 Urine Opiates Screen Presumptive negative 03/25/18 14:19 Urine Methadone Screen Presumptive negative 03/25/18 14:19 Ur Barbiturates Screen Presumptive negative 03/25/18 14:19 Ur Phencyclidine Scrn Presumptive negative 03/25/18 14:19 Ur Amphetamines Screen Presumptive negative 03/25/18 14:19 U Benzodiazepines Scrn Presumptive negative 03/25/18 14:19 Urine Cocaine Screen Presumptive negative 03/25/18 14:19 U Marijuana (THC) Screen Presumptive negative 03/25/18 14:19 Drugs of Abuse Note Disclamer 03/25/18 14:19
[2018-04-01] MEDS ORDERED: NACL 0.9% 500 ML 500 ML IV ONE (10:48)
[2018-04-01] MEDS ORDERED: MILK OF MAGNESIA PO ONE (12:17)
[2018-04-01] MEDS: BABY ASPIRIN PO SCH (12:25)
[2018-04-01 12:39] LABS: Hematocrit 21.5 % (35.5-45.6); Hemoglobin 7.3 gm/dl (11.8-15.2)
--- NOTE | 2018-04-01 14:01 | Progress Note ---
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: -Cr trending down after albumin q6h X 3 doses. -Renally dose meds -Strict intake and output -Obtain daily weight Acute Respiratory Failure: -extubated -Pulmonology on board DKA: -Improving -Per primary Essential Hypertension: -Titrate BP meds PRN to keep SBP <130 Glen Dimas MD [phone] Subjective Date of service: 04/01/18 Principal diagnosis: Acute hypoxic respiratory failure, DKA, BELKIS, Acute encephalopathy Interval history: Denies Cp, SHOB. Objective - Exam Narrative Exam: General appearance: well-developed, well-nourished EENT: ATNC, PERRL, mucous membranes moist Neck: no JVD, no carotid bruit Respiratory: Present: Clear to Ascultation. Absent: Rales, Ronchi Cardiology: regular, S1S2 Gastrointestinal: normoactive bowel sounds, no tenderness, no distended Integumentary: no rash, warm and dry Neurologic: no focal deficit, no asterixis Musculoskeletal: other (no edema in BLE) Psychiatric: cooperative - Vital Signs Vital signs: Vital Signs - 12hr 04/01/18 04/01/18 04/01/18 04:40 08:16 09:27 Temperature 99.1 F Pulse Rate 80 88 88 Respiratory 22 20 Rate Blood Pressure 174/77 147/70 147/70 Blood Pressure [Right] O2 Sat by Pulse 97 94 Oximetry 04/01/18 04/01/18 09:28 11:30 Temperature Pulse Rate 88 80 Respiratory 20 Rate Blood Pressure 147/70 Blood Pressure 130/67 [Right] O2 Sat by Pulse 99 Oximetry - Lab 04/01/18 11:16 04/01/18 05:51 Most recent lab results Calcium 7.3 mg/dL (8.4-10.2) L 04/01/18 05:51 Phosphorus 3.30 mg/dL (2.5-4.5) D 04/01/18 05:51 Magnesium 2.00 mg/dL (1.7-2.3) 04/01/18 05:51
--- NOTE | 2018-04-01 14:15 | Progress Note ---
Assessment and Plan Acute respiratory failure, on mechanical ventilator. Sepsis syndrome. Diabetic ketoacidosis. Severe metabolic acidosis. Acute on chronic encephalopathy, rule out cerebrovascular accident. Medication noncompliance. Anemia. Hyperkalemia. Acute kidney injury. - supplemental oxygen as needed to keep O2 Sats > 90% - Continue empiric antibiotics for now, follow cultures then de-escalate based on SALOME - ST evaluation and advance diet - continue VTE prophylaxis - continue Stress ulcer prophylaxis - Agitation and analgesia - Avoid delirium, avoid benzodiazepines - Avoid nephrotoxic agents and adjust all medications for CrCl/GFR - CXR prn - Mobility, PT/OT consult placed - continue other care per attending / other consultants ..... improved ...25' Subjective Date of service: 04/01/18 Principal diagnosis: Acute hypoxic respiratory failure, DKA, BELKIS, Acute encephalopathy Interval history: Patient is seen today for: Acute hypoxic respiratory failure, DKA, BELKIS, Acute encephalopathy Seen and examined at bedside; 24hour events reviewed; nursing and respiratory care staff consulted; no adverse overnight events reported to me; resting in bed ; denies any chest pains; No N/V/F/C; tolerating PT so far. Objective Vital Signs - 12hr 04/01/18 04/01/18 04/01/18 04:40 08:16 09:27 Temperature 99.1 F Pulse Rate 80 88 88 Respiratory 22 20 Rate Blood Pressure 174/77 147/70 147/70 Blood Pressure [Right] O2 Sat by Pulse 97 94 Oximetry 04/01/18 04/01/18 04/01/18 09:28 11:30 14:13 Temperature 98.8 F Pulse Rate 88 80 79 Respiratory 20 20 Rate Blood Pressure 147/70 128/66 Blood Pressure 130/67 [Right] O2 Sat by Pulse 99 Oximetry Constitutional: no acute distress, other (middle aged AAM, normocephalic and atraumatic) Eyes: non-icteric ENT: oropharynx moist, other (mallampatti 2) Neck: supple, no lymphadenopathy, no JVD, other (no thyromegaly) Effort: normal Ascultation: Bilateral: diminished breath sounds, rhonchi (posterior base) Percussion: Bilateral: not dull Cardiovascular: regular rate and rhythm, other (No R/M) Gastrointestinal: normoactive bowel sounds, soft, non-tender, non-distended, other ( No HSM) Integumentary: normal Extremities: no cyanosis, pulses normal, no ischemia or petechiae, edema (to hands) Neurologic: normal mental status, non-focal exam (grossly), pupils equal and round, CN II-XII normal, motor strength normal and Psychiatric: mood appropriate, affect normal CBC and BMP: 04/03/18 05:46 04/03/18 05:46 ABG, PT/INR, D-dimer: ABG POC ABG pH 7.405 (7.35-7.45) 03/28/18 03:49 POC ABG pCO2 38.6 (35-45) 03/28/18 03:49 POC ABG pO2 102 (80-105) 03/28/18 03:49 POC ABG HCO3 24.2 03/28/18 03:49 POC ABG Total CO2 25 03/28/18 03:49 POC ABG O2 Sat 98 03/28/18 03:49 Abnormal lab findings: Abnormal Labs 03/25/18 03/25/18 03/25/18 13:48 14:00 14:00 WBC 15.3 H RBC Hgb 10.5 L Hct MCV 95 H MCH 27 L MCHC 28 L RDW Plt Count Lymph % (Auto) 8.5 L [place] % (Auto) Lymph # [place] # Seg Neutrophils % 86.4 H Seg Neuts % (Manual) Lymphocytes % (Manual) Monocytes % (Manual) Seg Neutrophils # 13.2 H Lymphocytes # (Manual) Monocytes # (Manual) POC ABG pH POC ABG pCO2 POC ABG pO2 VBG pH Sodium 132 L Potassium 8.1 H* Chloride 87.8 L Carbon Dioxide 3 L* BUN 43 H Creatinine 2.6 H Glucose 1026 H* POC Glucose > 500 H Hemoglobin A1c Lactic Acid Calcium Phosphorus TIBC Transferrin Ferritin AST Total Creatine Kinase Troponin T Total Protein Albumin Triglycerides Cholesterol LDL Cholesterol Direct Crossmatch 03/25/18 03/25/18 03/25/18 14:00 14:08 14:29 WBC RBC Hgb Hct MCV MCH MCHC RDW Plt Count Lymph % (Auto) [place] % (Auto) Lymph # [place] # Seg Neutrophils % Seg Neuts % (Manual) Lymphocytes % (Manual) Monocytes % (Manual) Seg Neutrophils # Lymphocytes # (Manual) Monocytes # (Manual) POC ABG pH 6.952 L POC ABG pCO2 25.8 L POC ABG pO2 559 H VBG pH Sodium Potassium Chloride Carbon Dioxide BUN Creatinine Glucose POC Glucose Hemoglobin A1c Lactic Acid 10.10 H* Calcium Phosphorus 8.70 H TIBC Transferrin Ferritin AST Total Creatine Kinase Troponin T Total Protein Albumin 2.6 L Triglycerides Cholesterol LDL Cholesterol Direct Crossmatch 03/25/18 03/25/18 03/25/18 14:41 15:40 15:40 WBC RBC Hgb Hct MCV MCH MCHC RDW Plt Count Lymph % (Auto) [place] % (Auto) Lymph # [place] # Seg Neutrophils % Seg Neuts % (Manual) Lymphocytes % (Manual) Monocytes % (Manual) Seg Neutrophils # Lymphocytes # (Manual) Monocytes # (Manual) POC ABG pH POC ABG pCO2 POC ABG pO2 VBG pH 7.000 L* Sodium Potassium 6.7 H* Chloride 97.5 L Carbon Dioxide 5 L* BUN 43 H Creatinine 2.5 H Glucose 893 H* POC Glucose Hemoglobin A1c Lactic Acid Calcium 7.5 L Phosphorus 9.10 H TIBC Transferrin Ferritin AST Total Creatine Kinase Troponin T Total Protein Albumin Triglycerides Cholesterol LDL Cholesterol Direct Crossmatch 03/25/18 03/25/18 03/25/18 18:09 18:12 18:55 WBC RBC Hgb Hct MCV MCH MCHC RDW Plt Count Lymph % (Auto) [place] % (Auto) Lymph # [place] # Seg Neutrophils % Seg Neuts % (Manual) Lymphocytes % (Manual) Monocytes % (Manual) Seg Neutrophils # Lymphocytes # (Manual) Monocytes # (Manual) POC ABG pH POC ABG pCO2 POC ABG pO2 VBG pH Sodium 133 L Potassium 5.7 H Chloride 93.1 L Carbon Dioxide 10 L BUN 43 H Creatinine 2.5 H Glucose 786 H* POC Glucose Hemoglobin A1c 8.9 H Lactic Acid Calcium 7.8 L Phosphorus TIBC Transferrin Ferritin AST Total Creatine Kinase 226 H Troponin T 0.033 H Total Protein Albumin Triglycerides 185 H Cholesterol 215 H LDL Cholesterol Direct 144 H Crossmatch 03/25/18 03/25/18 03/25/18 18:55 21:00 21:03 WBC RBC Hgb Hct MCV MCH MCHC RDW Plt Count Lymph % (Auto) [place] % (Auto) Lymph # [place] # Seg Neutrophils % Seg Neuts % (Manual) Lymphocytes % (Manual) Monocytes % (Manual) Seg Neutrophils # Lymphocytes # (Manual) Monocytes # (Manual) POC ABG pH POC ABG pCO2 POC ABG pO2 VBG pH Sodium 136 L Potassium 6.7 H* Chloride Carbon Dioxide 7 L* BUN 45 H Creatinine 2.6 H Glucose 879 H* POC Glucose > 500 H Hemoglobin A1c Lactic Acid Calcium 7.8 L Phosphorus 9.20 H TIBC Transferrin Ferritin AST Total Creatine Kinase Troponin T Total Protein Albumin Triglycerides Cholesterol LDL Cholesterol Direct Crossmatch 03/25/18 03/25/18 03/25/18 21:39 22:06 23:20 WBC RBC Hgb Hct MCV MCH MCHC RDW Plt Count Lymph % (Auto) [place] % (Auto) Lymph # [place] # Seg Neutrophils % Seg Neuts % (Manual) Lymphocytes % (Manual) Monocytes % (Manual) Seg Neutrophils # Lymphocytes # (Manual) Monocytes # (Manual) POC ABG pH 7.272 L POC ABG pCO2 14.2 L POC ABG pO2 263 H VBG pH Sodium Potassium Chloride Carbon Dioxide 7 L* BUN 47 H Creatinine 2.9 H Glucose 702 H* POC Glucose > 500 H Hemoglobin A1c Lactic Acid Calcium 7.6 L Phosphorus TIBC Transferrin Ferritin AST Total Creatine Kinase Troponin T Total Protein Albumin Triglycerides Cholesterol LDL Cholesterol Direct Crossmatch 03/25/18 03/26/18 03/26/18 23:20 00:17 01:08 WBC RBC Hgb Hct MCV MCH MCHC RDW Plt Count Lymph % (Auto) [place] % (Auto) Lymph # [place] # Seg Neutrophils % Seg Neuts % (Manual) Lymphocytes % (Manual) Monocytes % (Manual) Seg Neutrophils # Lymphocytes # (Manual) Monocytes # (Manual) POC ABG pH POC ABG pCO2 POC ABG pO2 VBG pH Sodium Potassium Chloride Carbon Dioxide BUN Creatinine Glucose POC Glucose > 500 H 447 H 484 H Hemoglobin A1c Lactic Acid Calcium Phosphorus TIBC Transferrin Ferritin AST Total Creatine Kinase Troponin T Total Protein Albumin Triglycerides Cholesterol LDL Cholesterol Direct Crossmatch 03/26/18 03/26/18 03/26/18 02:31 03:07 04:09 WBC RBC Hgb Hct MCV MCH MCHC RDW Plt Count Lymph % (Auto) [place] % (Auto) Lymph # [place] # Seg Neutrophils % Seg Neuts % (Manual) Lymphocytes % (Manual) Monocytes % (Manual) Seg Neutrophils # Lymphocytes # (Manual) Monocytes # (Manual) POC ABG pH POC ABG pCO2 POC ABG pO2 VBG pH Sodium Potassium Chloride Carbon Dioxide BUN Creatinine Glucose POC Glucose > 500 H 467 H 361 H Hemoglobin A1c Lactic Acid Calcium Phosphorus TIBC Transferrin Ferritin AST Total Creatine Kinase Troponin T Total Protein Albumin Triglycerides Cholesterol LDL Cholesterol Direct Crossmatch 03/26/18 03/26/18 03/26/18 04:25 05:24 06:19 WBC RBC Hgb Hct MCV MCH MCHC RDW Plt Count Lymph % (Auto) [place] % (Auto) Lymph # [place] # Seg Neutrophils % Seg Neuts % (Manual) Lymphocytes % (Manual) Monocytes % (Manual) Seg Neutrophils # Lymphocytes # (Manual) Monocytes # (Manual) POC ABG pH POC ABG pCO2 POC ABG pO2 VBG pH Sodium 150 H D Potassium 3.4 L D Chloride 118.3 H Carbon Dioxide 16 L D BUN 45 H Creatinine 2.7 H Glucose 278 H POC Glucose 306 H 188 H Hemoglobin A1c Lactic Acid Calcium 7.7 L Phosphorus TIBC Transferrin Ferritin AST Total Creatine Kinase Troponin T Total Protein Albumin Triglycerides Cholesterol LDL Cholesterol Direct Crossmatch 03/26/18 03/26/18 03/26/18 07:09 08:20 09:12 WBC RBC Hgb Hct MCV MCH MCHC RDW Plt Count Lymph % (Auto) [place] % (Auto) Lymph # [place] # Seg Neutrophils % Seg Neuts % (Manual) Lymphocytes % (Manual) Monocytes % (Manual) Seg Neutrophils # Lymphocytes # (Manual) Monocytes # (Manual) POC ABG pH 7.530 H POC ABG pCO2 22.0 L POC ABG pO2 147 H VBG pH Sodium Potassium Chloride Carbon Dioxide BUN Creatinine Glucose POC Glucose 148 H 170 H Hemoglobin A1c Lactic Acid Calcium Phosphorus TIBC Transferrin Ferritin AST Total Creatine Kinase Troponin T Total Protein Albumin Triglycerides Cholesterol LDL Cholesterol Direct Crossmatch 03/26/18 03/26/18 03/26/18 09:15 10:30 10:46 WBC RBC Hgb Hct MCV MCH MCHC RDW Plt Count Lymph % (Auto) [place] % (Auto) Lymph # [place] # Seg Neutrophils % Seg Neuts % (Manual) Lymphocytes % (Manual) Monocytes % (Manual) Seg Neutrophils # Lymphocytes # (Manual) Monocytes # (Manual) POC ABG pH POC ABG pCO2 POC ABG pO2 VBG pH Sodium 152 H Potassium 3.1 L Chloride 121.4 H Carbon Dioxide BUN 43 H Creatinine 2.6 H Glucose 105 H POC Glucose 177 H 125 H Hemoglobin A1c Lactic Acid Calcium 7.5 L Phosphorus TIBC Transferrin Ferritin AST Total Creatine Kinase Troponin T Total Protein Albumin Triglycerides Cholesterol LDL Cholesterol Direct Crossmatch 03/26/18 03/26/18 03/26/18 14:57 15:35 18:12 WBC RBC Hgb Hct MCV MCH MCHC RDW Plt Count Lymph % (Auto) [place] % (Auto) Lymph # [place] # Seg Neutrophils % Seg Neuts % (Manual) Lymphocytes % (Manual) Monocytes % (Manual) Seg Neutrophils # Lymphocytes # (Manual) Monocytes # (Manual) POC ABG pH POC ABG pCO2 POC ABG pO2 VBG pH Sodium 148 H Potassium Chloride 117.5 H Carbon Dioxide 18 L BUN 43 H Creatinine 2.5 H Glucose 135 H POC Glucose 159 H 245 H Hemoglobin A1c Lactic Acid Calcium 7.3 L Phosphorus TIBC Transferrin Ferritin AST Total Creatine Kinase Troponin T Total Protein Albumin Triglycerides Cholesterol LDL Cholesterol Direct Crossmatch 03/26/18 03/26/18 03/27/18 19:27 21:42 02:03 WBC RBC Hgb Hct MCV MCH MCHC RDW Plt Count Lymph % (Auto) [place] % (Auto) Lymph # [place] # Seg Neutrophils % Seg Neuts % (Manual) Lymphocytes % (Manual) Monocytes % (Manual) Seg Neutrophils # Lymphocytes # (Manual) Monocytes # (Manual) POC ABG pH POC ABG pCO2 POC ABG pO2 VBG pH Sodium Potassium Chloride 115.0 H Carbon Dioxide 20 L BUN 42 H Creatinine 2.4 H Glucose 221 H POC Glucose 261 H 254 H Hemoglobin A1c Lactic Acid Calcium 7.1 L Phosphorus TIBC Transferrin Ferritin AST Total Creatine Kinase Troponin T Total Protein Albumin Triglycerides Cholesterol LDL Cholesterol Direct Crossmatch 03/27/18 03/27/18 03/27/18 03:35 03:35 05:20 WBC 12.3 H RBC 3.05 L Hgb 8.3 L Hct 25.3 L D MCV 83 L MCH 27 L MCHC RDW Plt Count Lymph % (Auto) [place] % (Auto) 8.6 H Lymph # [place] # 1.1 H Seg Neutrophils % 76.5 H Seg Neuts % (Manual) Lymphocytes % (Manual) Monocytes % (Manual) Seg Neutrophils # 9.4 H Lymphocytes # (Manual) Monocytes # (Manual) POC ABG pH POC ABG pCO2 POC ABG pO2 VBG pH Sodium Potassium Chloride 112.6 H Carbon Dioxide BUN 36 H Creatinine 2.1 H Glucose 244 H POC Glucose 263 H Hemoglobin A1c Lactic Acid Calcium 7.1 L Phosphorus TIBC Transferrin Ferritin AST 44 H Total Creatine Kinase Troponin T Total Protein 5.1 L D Albumin 2.1 L Triglycerides Cholesterol LDL Cholesterol Direct Crossmatch 03/27/18 03/27/18 03/27/18 08:22 13:00 14:06 WBC RBC Hgb Hct MCV MCH MCHC RDW Plt Count Lymph % (Auto) [place] % (Auto) Lymph # [place] # Seg Neutrophils % Seg Neuts % (Manual) Lymphocytes % (Manual) Monocytes % (Manual) Seg Neutrophils # Lymphocytes # (Manual) Monocytes # (Manual) POC ABG pH POC ABG pCO2 34.7 L POC ABG pO2 VBG pH Sodium Potassium Chloride Carbon Dioxide BUN Creatinine Glucose POC Glucose 306 H 233 H Hemoglobin A1c Lactic Acid Calcium Phosphorus TIBC Transferrin Ferritin AST Total Creatine Kinase Troponin T Total Protein Albumin Triglycerides Cholesterol LDL Cholesterol Direct Crossmatch 03/27/18 03/27/18 03/27/18 16:15 18:11 21:44 WBC RBC Hgb Hct MCV MCH MCHC RDW Plt Count Lymph % (Auto) [place] % (Auto) Lymph # [place] # Seg Neutrophils % Seg Neuts % (Manual) Lymphocytes % (Manual) Monocytes % (Manual) Seg Neutrophils # Lymphocytes # (Manual) Monocytes # (Manual) POC ABG pH POC ABG pCO2 POC ABG pO2 VBG pH Sodium Potassium Chloride Carbon Dioxide BUN Creatinine Glucose POC Glucose 243 H 226 H 224 H Hemoglobin A1c Lactic Acid Calcium Phosphorus TIBC Transferrin Ferritin AST Total Creatine Kinase Troponin T Total Protein Albumin Triglycerides Cholesterol LDL Cholesterol Direct Crossmatch 03/28/18 03/28/18 03/28/18 02:07 04:35 04:35 WBC RBC Hgb Hct MCV MCH MCHC RDW Plt Count Lymph % (Auto) [place] % (Auto) Lymph # [place] # Seg Neutrophils % Seg Neuts % (Manual) Lymphocytes % (Manual) Monocytes % (Manual) Seg Neutrophils # Lymphocytes # (Manual) Monocytes # (Manual) POC ABG pH POC ABG pCO2 POC ABG pO2 VBG pH Sodium Potassium Chloride Carbon Dioxide BUN Creatinine Glucose POC Glucose 220 H Hemoglobin A1c Lactic Acid Calcium Phosphorus TIBC 115 L Transferrin 94 L Ferritin 412.1 H AST Total Creatine Kinase Troponin T Total Protein Albumin Triglycerides Cholesterol LDL Cholesterol Direct Crossmatch 03/28/18 03/28/18 03/28/18 05:27 09:52 10:59 WBC RBC 3.22 L Hgb 9.1 L Hct 26.8 L MCV 83 L MCH MCHC RDW Plt Count 134 L Lymph % (Auto) [place] % (Auto) Lymph # [place] # Seg Neutrophils % Seg Neuts % (Manual) Lymphocytes % (Manual) Monocytes % (Manual) Seg Neutrophils # Lymphocytes # (Manual) Monocytes # (Manual) POC ABG pH POC ABG pCO2 POC ABG pO2 VBG pH Sodium Potassium Chloride Carbon Dioxide BUN Creatinine Glucose POC Glucose 280 H 332 H Hemoglobin A1c Lactic Acid Calcium Phosphorus TIBC Transferrin Ferritin AST Total Creatine Kinase Troponin T Total Protein Albumin Triglycerides Cholesterol LDL Cholesterol Direct Crossmatch 03/28/18 03/28/18 03/28/18 10:59 14:39 17:47 WBC RBC Hgb Hct MCV MCH MCHC RDW Plt Count Lymph % (Auto) [place] % (Auto) Lymph # [place] # Seg Neutrophils % Seg Neuts % (Manual) Lymphocytes % (Manual) Monocytes % (Manual) Seg Neutrophils # Lymphocytes # (Manual) Monocytes # (Manual) POC ABG pH POC ABG pCO2 POC ABG pO2 VBG pH Sodium 136 L Potassium Chloride Carbon Dioxide BUN 29 H Creatinine Glucose 310 H POC Glucose 250 H 132 H Hemoglobin A1c Lactic Acid Calcium 7.0 L Phosphorus TIBC Transferrin Ferritin AST Total Creatine Kinase Troponin T Total Protein Albumin Triglycerides Cholesterol LDL Cholesterol Direct Crossmatch 03/29/18 03/29/18 03/29/18 01:49 04:23 05:45 WBC RBC 3.13 L Hgb 8.8 L Hct 25.8 L MCV 82 L MCH MCHC RDW 12.7 L Plt Count 132 L Lymph % (Auto) 10.8 L [place] % (Auto) 9.1 H Lymph # 1.0 L [place] # Seg Neutrophils % 79.1 H Seg Neuts % (Manual) Lymphocytes % (Manual) Monocytes % (Manual) Seg Neutrophils # Lymphocytes # (Manual) Monocytes # (Manual) POC ABG pH POC ABG pCO2 POC ABG pO2 VBG pH Sodium 134 L Potassium Chloride Carbon Dioxide BUN 27 H Creatinine Glucose 172 H POC Glucose 122 H Hemoglobin A1c Lactic Acid Calcium 7.1 L Phosphorus TIBC Transferrin Ferritin AST Total Creatine Kinase Troponin T Total Protein Albumin Triglycerides Cholesterol LDL Cholesterol Direct Crossmatch 03/29/18 03/29/18 03/29/18 05:57 09:19 13:09 WBC RBC Hgb Hct MCV MCH MCHC RDW Plt Count Lymph % (Auto) [place] % (Auto) Lymph # [place] # Seg Neutrophils % Seg Neuts % (Manual) Lymphocytes % (Manual) Monocytes % (Manual) Seg Neutrophils # Lymphocytes # (Manual) Monocytes # (Manual) POC ABG pH POC ABG pCO2 POC ABG pO2 VBG pH Sodium Potassium Chloride Carbon Dioxide BUN Creatinine Glucose POC Glucose 224 H 316 H 345 H Hemoglobin A1c Lactic Acid Calcium Phosphorus TIBC Transferrin Ferritin AST Total Creatine Kinase Troponin T Total Protein Albumin Triglycerides Cholesterol LDL Cholesterol Direct Crossmatch 03/29/18 03/30/18 03/30/18 16:27 00:07 05:12 WBC RBC Hgb Hct MCV MCH MCHC RDW Plt Count Lymph % (Auto) [place] % (Auto) Lymph # [place] # Seg Neutrophils % Seg Neuts % (Manual) Lymphocytes % (Manual) Monocytes % (Manual) Seg Neutrophils # Lymphocytes # (Manual) Monocytes # (Manual) POC ABG pH POC ABG pCO2 POC ABG pO2 VBG pH Sodium Potassium Chloride Carbon Dioxide BUN Creatinine Glucose POC Glucose 210 H 69 L 213 H Hemoglobin A1c Lactic Acid Calcium Phosphorus TIBC Transferrin Ferritin AST Total Creatine Kinase Troponin T Total Protein Albumin Triglycerides Cholesterol LDL Cholesterol Direct Crossmatch 03/30/18 03/30/18 03/30/18 06:39 06:39 10:06 WBC RBC 2.95 L Hgb 8.3 L Hct 24.6 L MCV 83 L MCH MCHC RDW 12.9 L Plt Count Lymph % (Auto) [place] % (Auto) 13.5 H Lymph # [place] # 0.9 H Seg Neutrophils % Seg Neuts % (Manual) Lymphocytes % (Manual) Monocytes % (Manual) Seg Neutrophils # Lymphocytes # (Manual) Monocytes # (Manual) POC ABG pH POC ABG pCO2 POC ABG pO2 VBG pH Sodium 133 L Potassium 3.5 L D Chloride 95.6 L Carbon Dioxide BUN 34 H Creatinine Glucose 241 H POC Glucose 368 H Hemoglobin A1c Lactic Acid Calcium 7.3 L Phosphorus TIBC Transferrin Ferritin AST Total Creatine Kinase Troponin T Total Protein Albumin Triglycerides Cholesterol LDL Cholesterol Direct Crossmatch 03/30/18 03/30/18 03/30/18 13:59 16:39 20:47 WBC RBC Hgb Hct MCV MCH MCHC RDW Plt Count Lymph % (Auto) [place] % (Auto) Lymph # [place] # Seg Neutrophils % Seg Neuts % (Manual) Lymphocytes % (Manual) Monocytes % (Manual) Seg Neutrophils # Lymphocytes # (Manual) Monocytes # (Manual) POC ABG pH POC ABG pCO2 POC ABG pO2 VBG pH Sodium Potassium Chloride Carbon Dioxide BUN Creatinine Glucose POC Glucose 237 H 176 H 60 L Hemoglobin A1c Lactic Acid Calcium Phosphorus TIBC Transferrin Ferritin AST Total Creatine Kinase Troponin T Total Protein Albumin Triglycerides Cholesterol LDL Cholesterol Direct Crossmatch 03/30/18 03/31/18 03/31/18 21:30 02:07 06:45 WBC RBC Hgb Hct MCV MCH MCHC RDW Plt Count Lymph % (Auto) [place] % (Auto) Lymph # [place] # Seg Neutrophils % Seg Neuts % (Manual) Lymphocytes % (Manual) Monocytes % (Manual) Seg Neutrophils # Lymphocytes # (Manual) Monocytes # (Manual) POC ABG pH POC ABG pCO2 POC ABG pO2 VBG pH Sodium Potassium Chloride Carbon Dioxide BUN Creatinine Glucose POC Glucose 113 H 140 H 260 H Hemoglobin A1c Lactic Acid Calcium Phosphorus TIBC Transferrin Ferritin AST Total Creatine Kinase Troponin T Total Protein Albumin Triglycerides Cholesterol LDL Cholesterol Direct Crossmatch 03/31/18 03/31/18 03/31/18 07:24 07:24 11:51 WBC RBC 3.06 L Hgb 8.6 L Hct 25.3 L MCV 83 L MCH MCHC RDW 12.7 L Plt Count Lymph % (Auto) [place] % (Auto) Lymph # [place] # Seg Neutrophils % Seg Neuts % (Manual) 73.0 H Lymphocytes % (Manual) 6.0 L Monocytes % (Manual) 21.0 H Seg Neutrophils # Lymphocytes # (Manual) 0.4 L Monocytes # (Manual) 1.4 H POC ABG pH POC ABG pCO2 POC ABG pO2 VBG pH Sodium 134 L Potassium Chloride Carbon Dioxide BUN 36 H Creatinine 1.8 H Glucose 271 H POC Glucose > 500 H Hemoglobin A1c Lactic Acid Calcium 7.3 L Phosphorus TIBC Transferrin Ferritin AST Total Creatine Kinase Troponin T Total Protein Albumin Triglycerides Cholesterol LDL Cholesterol Direct Crossmatch 03/31/18 03/31/18 03/31/18 13:08 14:00 16:15 WBC RBC Hgb Hct MCV MCH MCHC RDW Plt Count Lymph % (Auto) [place] % (Auto) Lymph # [place] # Seg Neutrophils % Seg Neuts % (Manual) Lymphocytes % (Manual) Monocytes % (Manual) Seg Neutrophils # Lymphocytes # (Manual) Monocytes # (Manual) POC ABG pH POC ABG pCO2 POC ABG pO2 VBG pH Sodium Potassium Chloride Carbon Dioxide BUN Creatinine Glucose POC Glucose > 500 H > 500 H 405 H Hemoglobin A1c Lactic Acid Calcium Phosphorus TIBC Transferrin Ferritin AST Total Creatine Kinase Troponin T Total Protein Albumin Triglycerides Cholesterol LDL Cholesterol Direct Crossmatch 03/31/18 03/31/18 04/01/18 16:29 21:14 00:21 WBC RBC Hgb Hct MCV MCH MCHC RDW Plt Count Lymph % (Auto) [place] % (Auto) Lymph # [place] # Seg Neutrophils % Seg Neuts % (Manual) Lymphocytes % (Manual) Monocytes % (Manual) Seg Neutrophils # Lymphocytes # (Manual) Monocytes # (Manual) POC ABG pH POC ABG pCO2 POC ABG pO2 VBG pH Sodium Potassium Chloride Carbon Dioxide BUN Creatinine Glucose POC Glucose 424 H 393 H 384 H Hemoglobin A1c Lactic Acid Calcium Phosphorus TIBC Transferrin Ferritin AST Total Creatine Kinase Troponin T Total Protein Albumin Triglycerides Cholesterol LDL Cholesterol Direct Crossmatch 04/01/18 04/01/18 04/01/18 05:51 05:51 06:52 WBC RBC 2.55 L Hgb 7.1 L Hct 21.2 L MCV 83 L MCH MCHC RDW 12.5 L Plt Count Lymph % (Auto) [place] % (Auto) Lymph # [place] # Seg Neutrophils % Seg Neuts % (Manual) Lymphocytes % (Manual) Monocytes % (Manual) 22.0 H Seg Neutrophils # Lymphocytes # (Manual) Monocytes # (Manual) 1.1 H POC ABG pH POC ABG pCO2 POC ABG pO2 VBG pH Sodium Potassium Chloride Carbon Dioxide BUN 35 H Creatinine Glucose 120 H POC Glucose 114 H Hemoglobin A1c Lactic Acid Calcium 7.3 L Phosphorus TIBC Transferrin Ferritin AST Total Creatine Kinase Troponin T Total Protein Albumin Triglycerides Cholesterol LDL Cholesterol Direct Crossmatch 04/01/18 04/01/18 04/01/18 11:13 11:16 12:06 WBC RBC Hgb 7.3 L Hct 21.5 L MCV MCH MCHC RDW Plt Count Lymph % (Auto) [place] % (Auto) Lymph # [place] # Seg Neutrophils % Seg Neuts % (Manual) Lymphocytes % (Manual) Monocytes % (Manual) Seg Neutrophils # Lymphocytes # (Manual) Monocytes # (Manual) POC ABG pH POC ABG pCO2 POC ABG pO2 VBG pH Sodium Potassium Chloride Carbon Dioxide BUN Creatinine Glucose POC Glucose 223 H Hemoglobin A1c Lactic Acid Calcium Phosphorus TIBC Transferrin Ferritin AST Total Creatine Kinase Troponin T Total Protein Albumin Triglycerides Cholesterol LDL Cholesterol Direct Crossmatch See Detail Allied health notes reviewed: nursing
--- NOTE | 2018-04-01 14:16 | XRay Report ---
FINAL REPORT EXAM: XR CHEST 1V AP HISTORY: Follow-up respiratory failure. TECHNIQUE: A single frontal portable radiograph of the chest was obtained. Comparison is made with prior study 03/26/2018. FINDINGS: The cardiac silhouette and mediastinum are within normal limits. An endotracheal tube is seen with its tip approximately 7 cm above the marleni. An enteric tube traverses the thorax, and is seen with its tip overlying the proximal stomach. A right jugular central venous line terminates overlying the lower SVC. The lungs are clear bilaterally, without focal infiltrate or effusion. There is no pneumothorax. No significant osseous abnormalities are identified. IMPRESSION: No focal infiltrate or effusion.
--- NOTE | 2018-04-01 14:23 | XRay Report ---
FINAL REPORT EXAM: XR CHEST 1V AP HISTORY: Follow-up respiratory failure. TECHNIQUE: A single frontal portable radiograph of the chest was obtained. Comparison is made with prior study 03/27/2018. FINDINGS: The cardiac silhouette and mediastinum are within normal limits. There has been interval removal of the endotracheal and nasogastric tubes. A right jugular central venous line remains in place with its tip overlying the SVC. There is mild patchy consolidation at the left lung base, representing mild atelectasis and/or infiltrate, new compared to prior exam. The remainder of the lung armas are clear. There is no pleural effusion or pneumothorax. No significant osseous abnormalities are identified. IMPRESSION: New mild patchy opacities at the left lung base, representing atelectasis and/or infiltrate.
[2018-04-01 20:50] LABS: Hematocrit 23.5 % (35.5-45.6); Hemoglobin 7.7 gm/dl (11.8-15.2)
[2018-04-02] MEDS: SODIUM CHLORIDE FLUSH SYRINGE 10 ML IV SCH ×3 (01:44→23:41)
[2018-04-02] MEDS: HumuLIN R SUB-Q SCH ×4 (08:15→23:48)
[2018-04-02 08:39] LABS: Hematocrit 23.5 % (35.5-45.6); Hemoglobin 7.7 gm/dl (11.8-15.2); Mean Corpuscular HGB Conc 33 % (32-34); Mean Corpuscular Hemoglobin 28 pg (28-32); Mean Corpuscular Volume 84 fl (84-94); Platelet Count 284 K/mm3 (140-440); Red Cell Distribution Width 13.2 % (13.2-15.2)
[2018-04-02 08:54] LABS: BUN/Creatinine Ratio 22; Blood Urea Nitrogen 28 mg/dL (9-20); Calcium 7.3 mg/dL (8.4-10.2); Hemolysis Index 1
[2018-04-02] MEDS ORDERED: MILK OF MAGNESIA PO PRN (10:00)
[2018-04-02] MEDS: BABY ASPIRIN PO SCH (10:07)
--- NOTE | 2018-04-02 10:07 | Progress Note ---
Assessment and Plan Assessment and plan: --Bilateral upper extremity swelling/cellulitis Elevated the limb, venous Doppler to rule out DVTs, supportive care Empiric IV antibiotics --Severe anemia; no external evidence of bleeding; Received 1 unit of PRBCs, mild improvement of hemoglobin Follow GI evaluation, stool for occult blood, closely monitor H&H and transfuse as needed --Uncontrolled blood sugars; Moderate control; Accu-Chek sliding scale coverage and ADA diet, long-acting insulin Closely monitor blood sugars and adjust insulin dose as needed --DKA (diabetic ketoacidoses); resolved BG was 1026, with pH of 6.9, AG 49 at the time of admission now off insulin drip, on long-acting insulin twice a day dose Sliding scale coverage high-dose scale, A1c 8.9 On ADA diet --Acute respiratory failure; saturating well on nasal cannula oxygen s/p ventilator management and support, extubated 03/28 Continued nebs, evaluation for home oxygen at discharge --Hyperkalemia; resolved --BELKIS (acute kidney injury)secondary to severe dehydration Due to ATN, trending down --Metabolic acidosis due to DKA and renal failure Admission to improve continue supportive care --Hypertension,moderate control Continue current antihypertensives and when necessary medications --DVT prophylaxis Heparin subcutaneously 5000 units every 8 hours Plan of care reviewed with the patient and his nurse Closely monitor blood sugars Possible home health nurse for disease monitoring at discharge Possible discharge in 1-2 days if stable History Interval history: The patient seen and examined medical records reviewed Patient noticed bilateral upper extremity swelling, with blisters Received 1 unit of PRBCs yesterday mild improvement of hemoglobin No external evidence of bleeding GI consulted Blood sugars are reasonable levels Alert awake oriented 3 vital signs reviewed Hospitalist Physical - Constitutional Vitals: Temp Pulse Resp BP Pulse Ox 99.9 F H 79 18 167/76 94 04/02/18 07:34 04/02/18 07:34 04/02/18 07:34 04/02/18 07:34 04/02/18 07:34 General appearance: Present: no acute distress, well-nourished - EENT Eyes: Present: PERRL, EOM intact ENT: hearing intact, clear oral mucosa - Neck Neck: Present: supple, normal ROM - Respiratory Respiratory effort: labored Respiratory: bilateral: diminished, negative: rales, rhonchi, wheezing - Cardiovascular Rhythm: regular Heart Sounds: Present: S1 & S2 - Extremities Extremities: abnormal (bilateral upper extremity swelling, blisters) Extremity abnormal: edema (bilateral upper extremities) - Abdominal General gastrointestinal: soft, non-tender, non-distended, normal bowel sounds - Integumentary Integumentary: Present: clear, warm - Psychiatric Psychiatric: appropriate mood/affect, cooperative - Neurologic Neurologic: moves all extremities Results - Labs CBC & Chem 7: 04/02/18 07:52 04/02/18 07:52 Labs: Laboratory Last Values WBC 5.3 K/mm3 (4.5-11.0) 04/02/18 07:52 RBC 2.80 M/mm3 (3.65-5.03) L 04/02/18 07:52 Hgb 7.7 gm/dl (11.8-15.2) L 04/02/18 07:52 Hct 23.5 % (35.5-45.6) L 04/02/18 07:52 MCV 84 fl (84-94) 04/02/18 07:52 MCH 28 pg (28-32) 04/02/18 07:52 MCHC 33 % (32-34) 04/02/18 07:52 RDW 13.2 % (13.2-15.2) 04/02/18 07:52 Plt Count 284 K/mm3 (140-440) 04/02/18 07:52 Lymph % (Auto) 20.2 % (13.4-35.0) 03/30/18 06:39 [place] % (Auto) Screwdown Operator 04/02/18 07:52 Eos % (Auto) 1.7 % (0.0-4.3) 03/30/18 06:39 Baso % (Auto) 0.5 % (0.0-1.8) 03/30/18 06:39 Lymph # 1.3 K/mm3 (1.2-5.4) 03/30/18 06:39 [place] # 0.9 K/mm3 (0.0-0.8) H 03/30/18 06:39 Eos # 0.1 K/mm3 (0.0-0.4) 03/30/18 06:39 Baso # 0.0 K/mm3 (0.0-0.1) 03/30/18 06:39 Add Manual Diff Complete 04/01/18 05:51 Total Counted 100 04/01/18 05:51 Seg Neutrophils % 64.1 % (40.0-70.0) 03/30/18 06:39 Seg Neuts % (Manual) 47.0 % (40.0-70.0) 04/01/18 05:51 Band Neutrophils % 0 % 04/01/18 05:51 Lymphocytes % (Manual) 28.0 % (13.4-35.0) 04/01/18 05:51 Reactive Lymphs % (Man) 0 % 04/01/18 05:51 Monocytes % (Manual) 22.0 % (0.0-7.3) H 04/01/18 05:51 Eosinophils % (Manual) 3.0 % (0.0-4.3) 04/01/18 05:51 Basophils % (Manual) 0 % (0.0-1.8) 04/01/18 05:51 Metamyelocytes % 0 % 04/01/18 05:51 Myelocytes % 0 % 04/01/18 05:51 Promyelocytes % 0 % 04/01/18 05:51 Blast Cells % 0 % 04/01/18 05:51 Nucleated RBC % Not Reportable 04/01/18 05:51 Seg Neutrophils # 4.2 K/mm3 (1.8-7.7) 03/30/18 06:39 Seg Neutrophils # Man 2.4 K/mm3 (1.8-7.7) 04/01/18 05:51 Band Neutrophils # 0.0 K/mm3 04/01/18 05:51 Lymphocytes # (Manual) 1.4 K/mm3 (1.2-5.4) 04/01/18 05:51 Abs React Lymphs (Man) 0.0 K/mm3 04/01/18 05:51 Monocytes # (Manual) 1.1 K/mm3 (0.0-0.8) H 04/01/18 05:51 Eosinophils # (Manual) 0.2 K/mm3 (0.0-0.4) 04/01/18 05:51 Basophils # (Manual) 0.0 K/mm3 (0.0-0.1) 04/01/18 05:51 Metamyelocytes # 0.0 K/mm3 04/01/18 05:51 Myelocytes # 0.0 K/mm3 04/01/18 05:51 Promyelocytes # 0.0 K/mm3 04/01/18 05:51 Blast Cells # 0.0 K/mm3 04/01/18 05:51 WBC Morphology Not Reportable 04/01/18 05:51 Hypersegmented Neuts Not Reportable 04/01/18 05:51 Hyposegmented Neuts Not Reportable 04/01/18 05:51 Hypogranular Neuts Not Reportable 04/01/18 05:51 Smudge Cells Not Reportable 04/01/18 05:51 Toxic Granulation Not Reportable 04/01/18 05:51 Toxic Vacuolation Not Reportable 04/01/18 05:51 Dohle Bodies Not Reportable 04/01/18 05:51 Pelger-Huet Anomaly Not Reportable 04/01/18 05:51 Loi Rods Not Reportable 04/01/18 05:51 Platelet Estimate Consistent w auto 04/01/18 05:51 Clumped Platelets Not Reportable 04/01/18 05:51 Plt Clumps, EDTA Not Reportable 04/01/18 05:51 Large Platelets Not Reportable 04/01/18 05:51 Giant Platelets Not Reportable 04/01/18 05:51 Platelet Satelliting Not Reportable 04/01/18 05:51 Plt Morphology Comment Not Reportable 04/01/18 05:51 RBC Morphology Normal 04/01/18 05:51 Dimorphic RBCs Not Reportable 04/01/18 05:51 Polychromasia Not Reportable 04/01/18 05:51 Hypochromasia Not Reportable 04/01/18 05:51 Poikilocytosis Not Reportable 04/01/18 05:51 Anisocytosis Not Reportable 04/01/18 05:51 Microcytosis Not Reportable 04/01/18 05:51 Macrocytosis Not Reportable 04/01/18 05:51 Spherocytes Not Reportable 04/01/18 05:51 Pappenheimer Bodies Not Reportable 04/01/18 05:51 Sickle Cells Not Reportable 04/01/18 05:51 Target Cells Not Reportable 04/01/18 05:51 Tear Drop Cells Not Reportable 04/01/18 05:51 Ovalocytes Not Reportable 04/01/18 05:51 Helmet Cells Not Reportable 04/01/18 05:51 Joe-[place] Bodies Not Reportable 04/01/18 05:51 Lavina Rings Not Reportable 04/01/18 05:51 Kiki Cells Not Reportable 04/01/18 05:51 Bite Cells Not Reportable 04/01/18 05:51 Crenated Cell Not Reportable 04/01/18 05:51 Elliptocytes Not Reportable 04/01/18 05:51 Acanthocytes (Spur) Not Reportable 04/01/18 05:51 Rouleaux Not Reportable 04/01/18 05:51 Hemoglobin C Crystals Not Reportable 04/01/18 05:51 Schistocytes Not Reportable 04/01/18 05:51 Malaria parasites Not Reportable 04/01/18 05:51 Lev Bodies Not Reportable 04/01/18 05:51 Hem Pathologist Commnt No 04/01/18 05:51 POC ABG pH 7.405 (7.35-7.45) 03/28/18 03:49 POC ABG pCO2 38.6 (35-45) 03/28/18 03:49 POC ABG pO2 102 (80-105) 03/28/18 03:49 POC ABG HCO3 24.2 03/28/18 03:49 POC ABG Total CO2 25 03/28/18 03:49 POC ABG O2 Sat 98 03/28/18 03:49 POC ABG Base Excess 0 03/28/18 03:49 VBG pH 7.000 (7.320-7.420) L* 03/25/18 14:41 FiO2 25 % 03/28/18 03:49 Sodium 139 mmol/L (137-145) 04/02/18 07:52 Potassium 3.9 mmol/L (3.6-5.0) 04/02/18 07:52 Chloride 106.1 mmol/L (98-107) 04/02/18 07:52 Carbon Dioxide 22 mmol/L (22-30) 04/02/18 07:52 Anion Gap 15 mmol/L 04/02/18 07:52 BUN 28 mg/dL (9-20) H 04/02/18 07:52 Creatinine 1.3 mg/dL (0.8-1.5) 04/02/18 07:52 Estimated GFR > 60 ml/min 04/02/18 07:52 BUN/Creatinine Ratio 22 % 04/02/18 07:52 Glucose 115 mg/dL (75-100) H 04/02/18 07:52 POC Glucose 111 (70-105) H 04/02/18 06:57 Hemoglobin A1c 8.9 % (4-6) H 03/25/18 18:55 Lactic Acid 1.80 mmol/L (0.7-2.0) 03/26/18 04:25 Calcium 7.3 mg/dL (8.4-10.2) L 04/02/18 07:52 Phosphorus 3.60 mg/dL (2.5-4.5) 04/02/18 07:52 Magnesium 2.00 mg/dL (1.7-2.3) 04/01/18 05:51 Iron 54 ug/dL (49-181) 03/28/18 04:35 TIBC 115 mcg/dL (250-450) L 03/28/18 04:35 Transferrin 94 mg/dl (180-329) L 03/28/18 04:35 Ferritin 412.1 ng/mL (13.0-400.0) H 03/28/18 04:35 Total Bilirubin 0.20 mg/dL (0.1-1.2) 03/27/18 03:35 Direct Bilirubin < 0.2 mg/dL (0-0.2) 03/25/18 14:08 Indirect Bilirubin 0.1 mg/dL 03/25/18 14:08 AST 44 units/L (5-40) H 03/27/18 03:35 ALT 28 units/L (7-56) 03/27/18 03:35 Alkaline Phosphatase 128 units/L (35-129) 03/27/18 03:35 Total Creatine Kinase 226 units/L (55-170) H 03/25/18 18:09 CK-MB (CK-2) 3.7 ng/mL (0.0-4.0) 03/25/18 18:09 CK-MB (CK-2) Rel Index 1.6 (0-4) 03/25/18 18:09 Troponin T 0.033 ng/mL (0.00-0.029) H 03/25/18 18:09 Total Protein 5.1 g/dL (6.3-8.2) L D 03/27/18 03:35 Albumin 2.1 g/dL (3.9-5) L 03/27/18 03:35 Albumin/Globulin Ratio 0.7 % 03/27/18 03:35 Triglycerides 185 mg/dL (2-149) H 03/25/18 18:09 Cholesterol 215 mg/dL (50-199) H 03/25/18 18:09 LDL Cholesterol Direct 144 mg/dL (50-130) H 03/25/18 18:09 HDL Cholesterol 48 mg/dL (40-59) 03/25/18 18:09 Cholesterol/HDL Ratio 4.47 % 03/25/18 18:09 Urine Color Yellow (Yellow) 03/25/18 14:00 Urine Turbidity Clear (Clear) 03/25/18 14:00 Urine pH 5.0 (5.0-7.0) 03/25/18 14:00 Ur Specific [place] 1.021 (1.003-1.030) 03/25/18 14:00 Urine Protein 100 mg/dl mg/dL (Negative) 03/25/18 14:00 Urine Glucose (UA) >=500 mg/dL (Negative) 03/25/18 14:00 Urine Ketones 80 mg/dL (Negative) 03/25/18 14:00 Urine Blood Sm (Negative) 03/25/18 14:00 Urine Nitrite Neg (Negative) 03/25/18 14:00 Urine Bilirubin Neg (Negative) 03/25/18 14:00 Urine Urobilinogen < 2.0 mg/dL (<2.0) 03/25/18 14:00 Ur Leukocyte Esterase Neg (Negative) 03/25/18 14:00 Urine WBC (Auto) 1.0 /HPF (0.0-6.0) 03/25/18 14:00 Urine RBC (Auto) 1.0 /HPF (0.0-6.0) 03/25/18 14:00 Urine Bacteria (Auto) 1+ /HPF (Negative) 03/25/18 14:00 Urine Mucus Few /HPF 03/25/18 14:00 Urine Opiates Screen Presumptive negative 03/25/18 14:19 Urine Methadone Screen Presumptive negative 03/25/18 14:19 Ur Barbiturates Screen Presumptive negative 03/25/18 14:19 Ur Phencyclidine Scrn Presumptive negative 03/25/18 14:19 Ur Amphetamines Screen Presumptive negative 03/25/18 14:19 U Benzodiazepines Scrn Presumptive negative 03/25/18 14:19 Urine Cocaine Screen Presumptive negative 03/25/18 14:19 U Marijuana (THC) Screen Presumptive negative 03/25/18 14:19 Drugs of Abuse Note Disclamer 03/25/18 14:19 Blood Type O POSITIVE 04/01/18 11:13 Antibody Screen Negative 04/01/18 11:13 Crossmatch See Detail 04/01/18 11:13
[2018-04-02] MEDS: COREG PO SCH ×2 (10:09→23:47)
[2018-04-02] MEDS: MINIPRESS PO SCH ×2 (10:09→23:47)
[2018-04-02] MEDS: PROzac PO SCH (10:10)
[2018-04-02] MEDS: PEPCID PO SCH ×2 (10:10→23:47)
--- NOTE | 2018-04-02 10:10 | Gastroenterology Consultation ---
<REBEKAH TANNER REYMUNDO - Last Filed: 04/02/18 09:56> History of Present Illness - Reason for Consult Consult date: 04/02/18 anemia Requesting physician: JING ROA - History of Present Illness Mr Rosales is a 52 y/o male admitted on 03/25/18 with abdominal pain, N/V and was found to be in DKA with a BG >800. He is noncompliant with his insulin per note. He was initially intubated as he was obtunded on admission, extubated on 03/28. During his admission he was noted to have a drop in H/H from 10.5-> 7.7, he is s/p 1 unit of PRBC. NO GI signs of bleeding. He denies melena, hematochezia or hematemesis. He reports a colonoscopy 1 year ago at [place], normal. No prior EGD. NO abdominal pain or reflux symptoms. [facility] has now closed and he is off insulin gtt, and on SQ insulin. Past History Past Medical History: diabetes, hypertension Past Surgical History: No surgical history Social history: no significant social history Family history: no significant family history Medications and Allergies Allergies Allergy/AdvReac Type Severity Reaction Status Date / Time No Known Allergies Allergy Unverified 01/12/18 10:02 Home Medications Medication Instructions Recorded Confirmed Last Taken Type Aspirin 81 mg PO DAILY 01/13/18 03/26/18 Unknown History AtorvaSTATin [Lipitor] 40 mg PO QHS 01/13/18 03/26/18 Unknown History Carvedilol [Coreg] 6.25 mg PO BID 01/13/18 03/27/18 Unknown History FLUoxetine [PROzac] 10 mg PO QDAY 01/13/18 03/27/18 Unknown History Fluconazole [Diflucan] 200 mg PO 1XW 01/13/18 03/27/18 03/25/18 10:00 History 5mg Lisinopril/Hydrochlorothiazide 1 tab PO QDAY 01/13/18 03/26/18 03/25/18 10:00 History [Zestoretic 20-12.5 mg] 5mg Terazosin [Hytrin] 5 mg PO QHS 01/13/18 03/26/18 Unknown History Active Meds: Active Medications Lipase/Protease/Amylase (Holli Metz 10,500 Unit) 1 each FEEDTUBE PRN PRN PRN Reason: For Clogged Feeding Tube Aspirin (Baby Aspirin) 81 mg PO DAILY [facility] Last Admin: 04/01/18 12:25 Dose: 81 mg Atorvastatin Calcium (Lipitor) 40 mg PO QHS [facility] Last Admin: 04/01/18 22:37 Dose: 40 mg Carvedilol (Coreg) 25 mg PO BID [facility] Last Admin: 04/01/18 22:37 Dose: 25 mg Clonidine HCl (Catapres-Tts Patch) 0.2 mg TD We [facility] Last Admin: 03/27/18 10:09 Dose: 0.2 mg Dextrose (D50w (25gm) Syringe) 0 ml IV ONCE PRN PRN Reason: Hypoglycemia Last Admin: 03/29/18 22:33 Dose: 30 ml Famotidine (Pepcid) 20 mg PO BID [facility] Last Admin: 04/01/18 22:38 Dose: 20 mg Fentanyl (Sublimaze) 25 mcg IV Q2H PRN PRN Reason: Pain Last Admin: 03/27/18 21:03 Dose: 25 mcg Fluoxetine HCl (Prozac) 10 mg PO QDAY [facility] Last Admin: 04/01/18 09:28 Dose: 10 mg Hydralazine HCl (Apresoline) 10 mg IV Q4H PRN PRN Reason: SBP > 160 Last Admin: 03/30/18 10:16 Dose: 10 mg Hydrophilic Ointment (Vaseline Lip Therapy) 1 applic TP Q2HR PRN PRN Reason: Dry Lips Sodium Chloride (Nacl 0.9% 1000 Ml) 1,000 mls @ 125 mls/hr IV DIRECT [facility] Last Infusion: 04/01/18 23:59 Dose: Infused Insulin Human NPH (Humulin N) 30 unit SUB-Q Q12HR [facility] Last Admin: 04/01/18 22:36 Dose: 30 unit Insulin Human Regular (Humulin R) 0 units SUB-Q ACHS [facility]; Protocol Last Admin: 04/02/18 08:15 Dose: Not Given Magnesium Hydroxide (Milk Of Magnesia) 30 ml PO QDAY PRN PRN Reason: Constipation Multi-Ingred Cream/Lotion/Oil/Oint (Artificial Tears Ophth Oint) 1 applic OU Q4HR PRN PRN Reason: Dry Eye(s) Oxycodone/Acetaminophen (Percocet 5/325) 1 tab PO Q6H PRN PRN Reason: Pain, Moderate (4-6) Last Admin: 03/30/18 18:15 Dose: 1 tab Prazosin HCl (Minipress) 1 mg PO Q12HR [facility] Last Admin: 04/01/18 22:37 Dose: 1 mg Simple Syrup (Simple Syrup) 15 ml FEEDTUBE PRN PRN PRN Reason: Hypoglycemia Simple Syrup (Simple Syrup) 30 ml FEEDTUBE PRN PRN PRN Reason: Hypoglycemia Sodium Bicarbonate (Sodium Bicarbonate) 325 mg FEEDTUBE PRN PRN PRN Reason: For Clogged Feeding Tube Sodium Chloride (Nacl 0.9% 500 Ml) 1 ml IV DIRECT [facility] Sodium Chloride (Sodium Chloride Flush Syringe 10 Ml) 10 ml IV BID [facility] Last Admin: 04/02/18 01:44 Dose: Not Given Sodium Chloride (Sodium Chloride Flush Syringe 10 Ml) 10 ml IV PRN PRN PRN Reason: LINE FLUSH Last Admin: 03/26/18 13:47 Dose: 10 ml Review of Systems - Review of Systems All systems: negative Constitutional: weakness Exam - Constitutional Vital Signs: Temp Pulse Resp BP Pulse Ox 99.9 F H 79 18 167/76 94 04/02/18 07:34 04/02/18 07:34 04/02/18 07:34 04/02/18 07:34 04/02/18 07:34 General appearance: no acute distress - EENT Eyes: EOM intact ENT: hearing intact - Neck Neck: supple - Respiratory Respiratory: bilateral: CTA - Cardiovascular Rhythm: regular Heart Sounds: Present: S1 & S2 - Gastrointestinal General gastrointestinal: Present: soft, non-tender, distended, normal bowel sounds - Integumentary Integumentary: Present: warm, dry - Neurologic Neurological: alert and oriented x3 - Psychiatric Psychiatric: appropriate mood/affect, cooperative - Labs CBC & Chem 7: 04/02/18 07:52 04/02/18 07:52 Lab Results: Laboratory Results - last 24 hr 04/01/18 04/01/18 04/01/18 05:51 11:13 11:16 WBC RBC Hgb 7.3 L Hct 21.5 L MCV MCH MCHC RDW Plt Count [place] % (Auto) Sodium Potassium Chloride Carbon Dioxide Anion Gap BUN Creatinine Estimated GFR BUN/Creatinine Ratio Glucose POC Glucose Calcium Phosphorus Magnesium 2.00 Blood Type O POSITIVE Antibody Screen Negative Crossmatch See Detail 04/01/18 04/01/18 04/01/18 12:06 16:04 16:46 WBC RBC Hgb Hct MCV MCH MCHC RDW Plt Count [place] % (Auto) Sodium Potassium Chloride Carbon Dioxide Anion Gap BUN Creatinine Estimated GFR BUN/Creatinine Ratio Glucose POC Glucose 223 H 225 H 219 H Calcium Phosphorus Magnesium Blood Type Antibody Screen Crossmatch 04/01/18 04/01/18 04/02/18 19:47 21:15 05:47 WBC RBC Hgb 7.7 L Hct 23.5 L MCV MCH MCHC RDW Plt Count [place] % (Auto) Sodium Potassium Chloride Carbon Dioxide Anion Gap BUN Creatinine Estimated GFR BUN/Creatinine Ratio Glucose POC Glucose 380 H 49 L Calcium Phosphorus Magnesium Blood Type Antibody Screen Crossmatch 04/02/18 04/02/18 04/02/18 06:57 07:52 07:52 WBC 5.3 RBC 2.80 L Hgb 7.7 L Hct 23.5 L MCV 84 MCH 28 MCHC 33 RDW 13.2 Plt Count 284 [place] % (Auto) [employer]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 DKA- resolved 2. Anemia -No evidence of GI bleeding at this time. PT denies Melena or hematochezia, last colonoscopy 1 yr ago. No prior EGD. -Agree with FOBT -Recheck H/H -May consider EGD if pt remains anemic, will d/w Dr. Escobedo inpt vs outpat. -Currently on Pepcid. <KOLE ESCOBEDO - Last Filed: 04/02/18 14:38> Medications and Allergies Active Meds: Active Medications Lipase/Protease/Amylase (Holli Metz 10,500 Unit) 1 each FEEDTUBE PRN PRN PRN Reason: For Clogged Feeding Tube Aspirin (Baby Aspirin) 81 mg PO DAILY [facility] Last Admin: 04/02/18 10:07 Dose: 81 mg Atorvastatin Calcium (Lipitor) 40 mg PO QHS [facility] Last Admin: 04/01/18 22:37 Dose: 40 mg Carvedilol (Coreg) 25 mg PO BID [facility] Last Admin: 04/02/18 10:09 Dose: 25 mg Clonidine HCl (Catapres-Tts Patch) 0.2 mg TD We [facility] Last Admin: 03/27/18 10:09 Dose: 0.2 mg Dextrose (D50w (25gm) Syringe) 0 ml IV ONCE PRN PRN Reason: Hypoglycemia Last Admin: 03/29/18 22:33 Dose: 30 ml Famotidine (Pepcid) 20 mg PO BID [facility] Last Admin: 04/02/18 10:10 Dose: 20 mg Fentanyl (Sublimaze) 25 mcg IV Q2H PRN PRN Reason: Pain Last Admin: 03/27/18 21:03 Dose: 25 mcg Fluoxetine HCl (Prozac) 10 mg PO QDAY [facility] Last Admin: 04/02/18 10:10 Dose: 10 mg Hydralazine HCl (Apresoline) 10 mg IV Q4H PRN PRN Reason: SBP > 160 Last Admin: 03/30/18 10:16 Dose: 10 mg Hydrophilic Ointment (Vaseline Lip Therapy) 1 applic TP Q2HR PRN PRN Reason: Dry Lips Sodium Chloride (Nacl 0.9% 1000 Ml) 1,000 mls @ 125 mls/hr IV DIRECT [facility] Last Infusion: 04/01/18 23:59 Dose: Infused Piperacillin Sod/Tazobactam Sod (Zosyn/Ns 4.5gm/100ml) 4.5 gm in 100 mls @ 200 mls/hr IV Q8H [facility]; Protocol Vancomycin HCl 1,250 mg/ (Sodium Chloride) 262.5 mls @ 131.25 mls/hr IV Q12H [facility] Last Admin: 04/02/18 13:29 Dose: 131.25 mls/hr Insulin Human NPH (Humulin N) 30 unit SUB-Q Q12HR [facility] Last Admin: 04/02/18 10:09 Dose: 30 unit Insulin Human Regular (Humulin R) 0 units SUB-Q ACHS [facility]; Protocol Last Admin: 04/02/18 13:29 Dose: 6 units Magnesium Hydroxide (Milk Of Magnesia) 30 ml PO QDAY PRN PRN Reason: Constipation Multi-Ingred Cream/Lotion/Oil/Oint (Artificial Tears Ophth Oint) 1 applic OU Q4HR PRN PRN Reason: Dry Eye(s) Oxycodone/Acetaminophen (Percocet 5/325) 1 tab PO Q6H PRN PRN Reason: Pain, Moderate (4-6) Last Admin: 03/30/18 18:15 Dose: 1 tab Prazosin HCl (Minipress) 1 mg PO Q12HR [facility] Last Admin: 04/02/18 10:09 Dose: 1 mg Simple Syrup (Simple Syrup) 15 ml FEEDTUBE PRN PRN PRN Reason: Hypoglycemia Simple Syrup (Simple Syrup) 30 ml FEEDTUBE PRN PRN PRN Reason: Hypoglycemia Sodium Bicarbonate (Sodium Bicarbonate) 325 mg FEEDTUBE PRN PRN PRN Reason: For Clogged Feeding Tube Sodium Chloride (Nacl 0.9% 500 Ml) 1 ml IV DIRECT [facility] Sodium Chloride (Sodium Chloride Flush Syringe 10 Ml) 10 ml IV BID [facility] Last Admin: 04/02/18 10:11 Dose: 10 ml Sodium Chloride (Sodium Chloride Flush Syringe 10 Ml) 10 ml IV PRN PRN PRN Reason: LINE FLUSH Last Admin: 03/26/18 13:47 Dose: 10 ml Vancomycin HCl (Vancomycin Pharmacy To Dose) 1 each IV PKCONSULT [facility] Exam - Constitutional Vital Signs: Temp Pulse Resp BP Pulse Ox 99.9 F H 87 18 175/85 100 04/02/18 07:34 04/02/18 10:00 04/02/18 07:34 04/02/18 12:26 04/02/18 09:44 - Labs CBC & Chem 7: 04/02/18 07:52 04/02/18 07:52 Lab Results: Laboratory Results - last 24 hr 04/01/18 04/01/18 04/01/18 11:13 16:04 16:46 WBC RBC Hgb Hct MCV MCH MCHC RDW Plt Count [place] % (Auto) Add Manual Diff Total Counted Seg Neuts % (Manual) Band Neutrophils % Lymphocytes % (Manual) Reactive Lymphs % (Man) Monocytes % (Manual) Eosinophils % (Manual) Basophils % (Manual) Metamyelocytes % Myelocytes % Promyelocytes % Blast Cells % Nucleated RBC % Seg Neutrophils # Man Band Neutrophils # Lymphocytes # (Manual) Abs React Lymphs (Man) Monocytes # (Manual) Eosinophils # (Manual) Basophils # (Manual) Metamyelocytes # Myelocytes # Promyelocytes # Blast Cells # WBC Morphology Hypersegmented Neuts Hyposegmented Neuts Hypogranular Neuts Smudge Cells Toxic Granulation Toxic Vacuolation Dohle Bodies Pelger-Huet Anomaly Loi Rods Platelet Estimate Clumped Platelets Plt Clumps, EDTA Large Platelets Giant Platelets Platelet Satelliting Plt Morphology Comment RBC Morphology Dimorphic RBCs Polychromasia Hypochromasia Poikilocytosis Anisocytosis Microcytosis Macrocytosis Spherocytes Pappenheimer Bodies Sickle Cells Target Cells Tear Drop Cells Ovalocytes Helmet Cells Joe-Sinclair Bodies [place] Rings [place] Cells Bite Cells Crenated Cell Elliptocytes Acanthocytes (Spur) Rouleaux Hemoglobin C Crystals Schistocytes Malaria parasites Lev Bodies Hem Pathologist Commnt Sodium Potassium Chloride Carbon Dioxide Anion Gap BUN Creatinine Estimated GFR BUN/Creatinine Ratio Glucose POC Glucose 225 H 219 H Calcium Phosphorus Crossmatch See Detail 04/01/18 04/01/18 04/02/18 19:47 21:15 05:47 WBC RBC Hgb 7.7 L Hct 23.5 L MCV MCH MCHC RDW Plt Count [place] % (Auto) Add Manual Diff Total Counted Seg Neuts % (Manual) Band Neutrophils % Lymphocytes % (Manual) Reactive Lymphs % (Man) Monocytes % (Manual) Eosinophils % (Manual) Basophils % (Manual) Metamyelocytes % Myelocytes % Promyelocytes % Blast Cells % Nucleated RBC % Seg Neutrophils # Man Band Neutrophils # Lymphocytes # (Manual) Abs React Lymphs (Man) Monocytes # (Manual) Eosinophils # (Manual) Basophils # (Manual) Metamyelocytes # Myelocytes # Promyelocytes # Blast Cells # WBC Morphology Hypersegmented Neuts Hyposegmented Neuts Hypogranular Neuts Smudge Cells Toxic Granulation Toxic Vacuolation Dohle Bodies Pelger-Huet Anomaly [place]i Rods Platelet Estimate Clumped Platelets Plt Clumps, EDTA Large Platelets Giant Platelets Platelet Satelliting Plt Morphology Comment RBC Morphology Dimorphic RBCs Polychromasia Hypochromasia Poikilocytosis Anisocytosis Microcytosis Macrocytosis Spherocytes Pappenheimer Bodies Sickle Cells Target Cells Tear Drop Cells Ovalocytes Helmet Cells Joe-[place] Bodies [place] Cells Bite Cells Crenated Cell Elliptocytes Acanthocytes (Spur) Rouleaux Hemoglobin C Crystals Schistocytes Malaria parasites Lev Bodies Hem Pathologist Commnt Sodium Potassium Chloride Carbon Dioxide Anion Gap BUN Creatinine Estimated GFR BUN/Creatinine Ratio Glucose POC Glucose 380 H 49 L Calcium Phosphorus Crossmatch 04/02/18 04/02/18 04/02/18 06:57 07:52 07:52 WBC 5.3 RBC 2.80 L Hgb 7.7 L Hct 23.5 L MCV 84 MCH 28 MCHC 33 RDW 13.2 Plt Count 284 [place] % (Auto) Assembler [employer] Puller Over Hand Add Manual Diff Complete Total Counted 100 Seg Neuts % (Manual) 51.0 Band Neutrophils % 0 Lymphocytes % (Manual) 20.0 Reactive Lymphs % (Man) 0 Monocytes % (Manual) 25.0 H Eosinophils % (Manual) 4.0 Basophils % (Manual) 0 Metamyelocytes % 0 Myelocytes % 0 Promyelocytes % 0 Blast Cells % 0 Nucleated RBC % Not Reportable Seg Neutrophils # Man 2.7 Band Neutrophils # 0.0 Lymphocytes # (Manual) 1.1 L Abs React Lymphs (Man) 0.0 Monocytes # (Manual) 1.3 H Eosinophils # (Manual) 0.2 Basophils # (Manual) 0.0 Metamyelocytes # 0.0 Myelocytes # 0.0 Promyelocytes # 0.0 Blast Cells # 0.0 WBC Morphology Not Reportable Hypersegmented Neuts Not Reportable Hyposegmented Neuts Not Reportable Hypogranular Neuts Not Reportable Smudge Cells Not Reportable Toxic Granulation Not Reportable Toxic Vacuolation Not Reportable Dohle Bodies Not Reportable Pelger-Huet Anomaly Not Reportable Loi Rods Not Reportable Platelet Estimate Consistent w auto Clumped Platelets Not Reportable Plt Clumps, EDTA Not Reportable Large Platelets Not Reportable Giant Platelets Not Reportable Platelet Satelliting Not Reportable Plt Morphology Comment Not Reportable RBC Morphology Normal Dimorphic RBCs Not Reportable Polychromasia Not Reportable Hypochromasia Not Reportable Poikilocytosis Not Reportable Anisocytosis Not Reportable Microcytosis Not Reportable Macrocytosis Not Reportable Spherocytes Not Reportable Pappenheimer Bodies Not Reportable Sickle Cells Not Reportable Target Cells Not Reportable Tear Drop Cells Not Reportable Ovalocytes Not Reportable Helmet Cells Not Reportable Joe-[place] Bodies Not Reportable [place] Rings Not Reportable [place] Cells Not Reportable Bite Cells Not Reportable Crenated Cell Not Reportable Elliptocytes Not Reportable Acanthocytes (Spur) Not Reportable Rouleaux Not Reportable Hemoglobin C Crystals Not Reportable Schistocytes Not Reportable Malaria parasites Not Reportable Lev Bodies Not Reportable Hem Pathologist Commnt No Sodium 139 Potassium 3.9 Chloride 106.1 Carbon Dioxide 22 Anion Gap 15 BUN 28 H Creatinine 1.3 Estimated GFR > 60 BUN/Creatinine Ratio 22 Glucose 115 H POC Glucose 111 H Calcium 7.3 L Phosphorus 3.60 Crossmatch 04/02/18 12:36 WBC RBC Hgb Hct MCV MCH MCHC RDW Plt Count [place] % (Auto) Add Manual Diff Total Counted Seg Neuts % (Manual) Band Neutrophils % Lymphocytes % (Manual) Reactive Lymphs % (Man) Monocytes % (Manual) Eosinophils % (Manual) Basophils % (Manual) Metamyelocytes % Myelocytes % Promyelocytes % Blast Cells % Nucleated RBC % Seg Neutrophils # Man Band Neutrophils # Lymphocytes # (Manual) Abs React Lymphs (Man) Monocytes # (Manual) Eosinophils # (Manual) Basophils # (Manual) Metamyelocytes # Myelocytes # Promyelocytes # Blast Cells # WBC Morphology Hypersegmented Neuts Hyposegmented Neuts Hypogranular Neuts Smudge Cells Toxic Granulation Toxic Vacuolation Dohle Bodies Pelger-Huet Anomaly Loi Rods Platelet Estimate Clumped Platelets Plt Clumps, EDTA Large Platelets Giant Platelets Platelet Satelliting Plt Morphology Comment RBC Morphology Dimorphic RBCs Polychromasia Hypochromasia Poikilocytosis Anisocytosis Microcytosis Macrocytosis Spherocytes Pappenheimer Bodies Sickle Cells Target Cells Tear Drop Cells Ovalocytes Helmet Cells Joe-Sinclair Bodies [place] Cells Bite Cells Crenated Cell Elliptocytes Acanthocytes (Spur) Rouleaux Hemoglobin C Crystals Schistocytes Malaria parasites Lev Bodies Hem Pathologist Commnt Sodium Potassium Chloride Carbon Dioxide Anion Gap BUN Creatinine Estimated GFR BUN/Creatinine Ratio Glucose POC Glucose 259 H Calcium Phosphorus Crossmatch Assessment and Plan - Patient Problems (1) Anemia Current Visit: Yes Status: Acute Plan to address problem: The patient was seen and examined and care discussed. Medications were reviewed. He has no evidence of acute GI bleeding and is asymptomatic. Occult GI blood loss is possible. He had a normal colonoscopy a year ago at [place]. Outpatient EGD will be planned. We will s/o and f/u PRN this admission. Would continue empiric PPI therapy as outpatient until seen.
[2018-04-02 10:25] LABS: Basophils % (Manual) 0 % (0.0-1.8); Platelet Estimate Consistent w Auto; RBC Morphology Normal; Total Cells Counted 100
[2018-04-02] MEDS ORDERED: VANCOMYCIN PHARMACY TO DOSE IV SCH (11:00)
[2018-04-02] MEDS ORDERED: VANCOMYCIN/NS 1 GM/250 ML 1 GM/250 ML BAG IV SCH (11:00)
--- NOTE | 2018-04-02 13:25 | Progress Note ---
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: -Cr continues to improve. s/p albumin q6h X 3 doses. -Renally dose meds -Strict intake and output -Obtain daily weight Acute Respiratory Failure: -extubated -Pulmonology on board DKA: -Improving -Per primary Essential Hypertension: -Titrate BP meds PRN to keep SBP <130 Glen Dimas MD [phone] Subjective Date of service: 04/02/18 Principal diagnosis: Acute hypoxic respiratory failure, DKA, BELKIS, Acute encephalopathy Interval history: Denies Cp, SHOB. Objective - Exam Narrative Exam: General appearance: well-developed, well-nourished EENT: ATNC, PERRL, mucous membranes moist Neck: no JVD, no carotid bruit Respiratory: Present: Clear to Ascultation. Absent: Rales, Ronchi Cardiology: regular, S1S2 Gastrointestinal: normoactive bowel sounds, no tenderness, no distended Integumentary: no rash, warm and dry Neurologic: no focal deficit, no asterixis Musculoskeletal: other (no edema in BLE) Psychiatric: cooperative - Vital Signs Vital signs: Vital Signs - 12hr 04/02/18 04/02/18 04/02/18 04:05 04:55 07:34 Temperature 99.6 F 99.9 F H Pulse Rate 79 79 79 Pulse Rate [ From Monitor] Respiratory 18 18 Rate Blood Pressure 178/85 167/76 Blood Pressure 178/85 [Right] O2 Sat by Pulse 97 94 94 Oximetry 04/02/18 04/02/18 04/02/18 09:44 10:00 12:26 Temperature Pulse Rate 87 Pulse Rate [ 87 From Monitor] Respiratory Rate Blood Pressure 175/85 Blood Pressure [Right] O2 Sat by Pulse 100 Oximetry - Lab 04/02/18 07:52 04/02/18 07:52 Most recent lab results Calcium 7.3 mg/dL (8.4-10.2) L 04/02/18 07:52 Phosphorus 3.60 mg/dL (2.5-4.5) 04/02/18 07:52 Magnesium 2.00 mg/dL (1.7-2.3) 04/01/18 05:51
[2018-04-02] MEDS: VANCOMYCIN 1,250 MG in NACL 0.9% 250ML 250 ML IV SCH (13:29)
[2018-04-02] MEDS: ZOSYN/NS 4.5GM/100ML 4.5 GM/100 ML VIAL IV SCH ×3 (16:00→23:39)
--- NOTE | 2018-04-02 18:08 | Vascular Lab Report ---
UPPER EXTREMITY VENOUS DUPLEX: REASON FOR EXAM: Pain and swelling of the upper extremities COMMENTS ON THE RIGHT: Acute superficial venous thrombosis involving the cephalic vein from the forearm up to the upper arm is identified. The remaining veins visualized are freely compressible without evidence of internal echogenicity. Spontaneous and phasic flow is present proximally. COMMENTS ON THE LEFT: Acute thrombus is seen in the cephalic vein from the wrist to the shoulder. The remaining veins visualized are freely compressible without evidence of internal echogenicity. Spontaneous and phasic flow is present proximally. IMPRESSION: Acute superficial venous thrombosis involving the cephalic veins bilaterally. No evidence of acute deep venous thrombosis in either upper extremity.
[2018-04-02] MEDS: APRESOLINE IV PRN (18:34)
[2018-04-02] MEDS: NACL 0.9% 1000 ML 1,000 ML IV SCH (20:35)
[2018-04-03] MEDS: VANCOMYCIN 1,250 MG in NACL 0.9% 250ML 250 ML IV SCH ×2 (01:57→18:00)
[2018-04-03] MEDS: D50W (25GM) Syringe IV PRN (04:22)
[2018-04-03] MEDS: ZOSYN/NS 4.5GM/100ML 4.5 GM/100 ML VIAL IV SCH ×3 (05:16→21:50)
[2018-04-03 06:37] LABS: Hematocrit 22.4 % (35.5-45.6); Hemoglobin 7.6 gm/dl (11.8-15.2); Mean Corpuscular HGB Conc 34 % (32-34); Mean Corpuscular Hemoglobin 28 pg (28-32); Mean Corpuscular Volume 83 fl (84-94); Red Blood Count 2.72 M/mm3 (3.65-5.03); Red Cell Distribution Width 13.4 % (13.2-15.2)
[2018-04-03 07:01] LABS: Calcium 7.3 mg/dL (8.4-10.2)
[2018-04-03 08:27] LABS: Total Cells Counted 100
[2018-04-03 08:28] LABS: Platelet Estimate Consistent w Auto; RBC Morphology Normal
[2018-04-03 08:31] LABS: Platelet Count 319 K/mm3 (140-440)
--- NOTE | 2018-04-03 11:16 | Progress Note ---
Hospitalist Physical - Constitutional Vitals: Temp Pulse Resp BP Pulse Ox 98.2 F 79 20 164/72 94 04/03/18 08:00 04/03/18 08:26 04/03/18 08:26 04/03/18 08:26 04/03/18 09:57 General appearance: Present: no acute distress, well-nourished Results - Labs CBC & Chem 7: 04/03/18 05:46 04/03/18 05:46 Labs: Laboratory Last Values WBC 7.1 K/mm3 (4.5-11.0) 04/03/18 05:46 RBC 2.72 M/mm3 (3.65-5.03) L 04/03/18 05:46 Hgb 7.6 gm/dl (11.8-15.2) L 04/03/18 05:46 Hct 22.4 % (35.5-45.6) L 04/03/18 05:46 MCV 83 fl (84-94) L 04/03/18 05:46 MCH 28 pg (28-32) 04/03/18 05:46 MCHC 34 % (32-34) 04/03/18 05:46 RDW 13.4 % (13.2-15.2) 04/03/18 05:46 Plt Count 319 K/mm3 (140-440) 04/03/18 05:46 Lymph % (Auto) 20.2 % (13.4-35.0) 03/30/18 06:39 [place] % (Auto) Coronary Care Unit Nurse 04/03/18 05:46 Eos % (Auto) 1.7 % (0.0-4.3) 03/30/18 06:39 Baso % (Auto) 0.5 % (0.0-1.8) 03/30/18 06:39 Lymph # 1.3 K/mm3 (1.2-5.4) 03/30/18 06:39 [place] # 0.9 K/mm3 (0.0-0.8) H 03/30/18 06:39 Eos # 0.1 K/mm3 (0.0-0.4) 03/30/18 06:39 Baso # 0.0 K/mm3 (0.0-0.1) 03/30/18 06:39 Add Manual Diff Complete 04/03/18 05:46 Total Counted 100 04/03/18 05:46 Seg Neutrophils % 64.1 % (40.0-70.0) 03/30/18 06:39 Seg Neuts % (Manual) 64.0 % (40.0-70.0) 04/03/18 05:46 Band Neutrophils % 0 % 04/03/18 05:46 Lymphocytes % (Manual) 13.0 % (13.4-35.0) L 04/03/18 05:46 Reactive Lymphs % (Man) 0 % 04/03/18 05:46 Monocytes % (Manual) 19.0 % (0.0-7.3) H 04/03/18 05:46 Eosinophils % (Manual) 3.0 % (0.0-4.3) 04/03/18 05:46 Basophils % (Manual) 1.0 % (0.0-1.8) 04/03/18 05:46 Metamyelocytes % 0 % 04/03/18 05:46 Myelocytes % 0 % 04/03/18 05:46 Promyelocytes % 0 % 04/03/18 05:46 Blast Cells % 0 % 04/03/18 05:46 Nucleated RBC % Not Reportable 04/03/18 05:46 Seg Neutrophils # 4.2 K/mm3 (1.8-7.7) 03/30/18 06:39 Seg Neutrophils # Man 4.5 K/mm3 (1.8-7.7) 04/03/18 05:46 Band Neutrophils # 0.0 K/mm3 04/03/18 05:46 Lymphocytes # (Manual) 0.9 K/mm3 (1.2-5.4) L 04/03/18 05:46 Abs React Lymphs (Man) 0.0 K/mm3 04/03/18 05:46 Monocytes # (Manual) 1.3 K/mm3 (0.0-0.8) H 04/03/18 05:46 Eosinophils # (Manual) 0.2 K/mm3 (0.0-0.4) 04/03/18 05:46 Basophils # (Manual) 0.1 K/mm3 (0.0-0.1) 04/03/18 05:46 Metamyelocytes # 0.0 K/mm3 04/03/18 05:46 Myelocytes # 0.0 K/mm3 04/03/18 05:46 Promyelocytes # 0.0 K/mm3 04/03/18 05:46 Blast Cells # 0.0 K/mm3 04/03/18 05:46 WBC Morphology Not Reportable 04/03/18 05:46 Hypersegmented Neuts Not Reportable 04/03/18 05:46 Hyposegmented Neuts Not Reportable 04/03/18 05:46 Hypogranular Neuts Not Reportable 04/03/18 05:46 Smudge Cells Not Reportable 04/03/18 05:46 Toxic Granulation Not Reportable 04/03/18 05:46 Toxic Vacuolation Not Reportable 04/03/18 05:46 Dohle Bodies Not Reportable 04/03/18 05:46 Pelger-Huet Anomaly Not Reportable 04/03/18 05:46 Loi Rods Not Reportable 04/03/18 05:46 Platelet Estimate Consistent w auto 04/03/18 05:46 Clumped Platelets Not Reportable 04/03/18 05:46 Plt Clumps, EDTA Not Reportable 04/03/18 05:46 Large Platelets Not Reportable 04/03/18 05:46 Giant Platelets Not Reportable 04/03/18 05:46 Platelet Satelliting Not Reportable 04/03/18 05:46 Plt Morphology Comment Not Reportable 04/03/18 05:46 RBC Morphology Normal 04/03/18 05:46 Dimorphic RBCs Not Reportable 04/03/18 05:46 Polychromasia Not Reportable 04/03/18 05:46 Hypochromasia Not Reportable 04/03/18 05:46 Poikilocytosis Not Reportable 04/03/18 05:46 Anisocytosis Not Reportable 04/03/18 05:46 Microcytosis Not Reportable 04/03/18 05:46 Macrocytosis Not Reportable 04/03/18 05:46 Spherocytes Not Reportable 04/03/18 05:46 Pappenheimer Bodies Not Reportable 04/03/18 05:46 Sickle Cells Not Reportable 04/03/18 05:46 Target Cells Not Reportable 04/03/18 05:46 Tear Drop Cells Not Reportable 04/03/18 05:46 Ovalocytes Not Reportable 04/03/18 05:46 Helmet Cells Not Reportable 04/03/18 05:46 [place] Bodies Not Reportable 04/03/18 05:46 [place] Rings Not Reportable 04/03/18 05:46 Kiki Cells Not Reportable 04/03/18 05:46 Bite Cells Not Reportable 04/03/18 05:46 Crenated Cell Not Reportable 04/03/18 05:46 Elliptocytes Not Reportable 04/03/18 05:46 Acanthocytes (Spur) Not Reportable 04/03/18 05:46 Rouleaux Not Reportable 04/03/18 05:46 Hemoglobin C Crystals Not Reportable 04/03/18 05:46 Schistocytes Not Reportable 04/03/18 05:46 Malaria parasites Not Reportable 04/03/18 05:46 Lev Bodies Not Reportable 04/03/18 05:46 Hem Pathologist Commnt No 04/03/18 05:46 POC ABG pH 7.405 (7.35-7.45) 03/28/18 03:49 POC ABG pCO2 38.6 (35-45) 03/28/18 03:49 POC ABG pO2 102 (80-105) 03/28/18 03:49 POC ABG HCO3 24.2 03/28/18 03:49 POC ABG Total CO2 25 03/28/18 03:49 POC ABG O2 Sat 98 03/28/18 03:49 POC ABG Base Excess 0 03/28/18 03:49 VBG pH 7.000 (7.320-7.420) L* 03/25/18 14:41 FiO2 25 % 03/28/18 03:49 Sodium 144 mmol/L (137-145) 04/03/18 05:46 Potassium 3.6 mmol/L (3.6-5.0) 04/03/18 05:46 Chloride 110.7 mmol/L (98-107) H 04/03/18 05:46 Carbon Dioxide 22 mmol/L (22-30) 04/03/18 05:46 Anion Gap 15 mmol/L 04/03/18 05:46 BUN 24 mg/dL (9-20) H 04/03/18 05:46 Creatinine 1.5 mg/dL (0.8-1.5) 04/03/18 05:46 Estimated GFR 59 ml/min 04/03/18 05:46 BUN/Creatinine Ratio 16 % 04/03/18 05:46 Glucose 45 mg/dL (75-100) L 04/03/18 05:46 POC Glucose 107 (70-105) H 04/03/18 09:17 Hemoglobin A1c 8.9 % (4-6) H 03/25/18 18:55 Lactic Acid 1.80 mmol/L (0.7-2.0) 03/26/18 04:25 Calcium 7.3 mg/dL (8.4-10.2) L 04/03/18 05:46 Phosphorus 3.70 mg/dL (2.5-4.5) 04/03/18 05:46 Magnesium 2.00 mg/dL (1.7-2.3) 04/01/18 05:51 Iron 54 ug/dL (49-181) 03/28/18 04:35 TIBC 115 mcg/dL (250-450) L 03/28/18 04:35 Transferrin 94 mg/dl (180-329) L 03/28/18 04:35 Ferritin 412.1 ng/mL (13.0-400.0) H 03/28/18 04:35 Total Bilirubin 0.20 mg/dL (0.1-1.2) 03/27/18 03:35 Direct Bilirubin < 0.2 mg/dL (0-0.2) 03/25/18 14:08 Indirect Bilirubin 0.1 mg/dL 03/25/18 14:08 AST 44 units/L (5-40) H 03/27/18 03:35 ALT 28 units/L (7-56) 03/27/18 03:35 Alkaline Phosphatase 128 units/L (35-129) 03/27/18 03:35 Total Creatine Kinase 226 units/L (55-170) H 03/25/18 18:09 CK-MB (CK-2) 3.7 ng/mL (0.0-4.0) 03/25/18 18:09 CK-MB (CK-2) Rel Index 1.6 (0-4) 03/25/18 18:09 Troponin T 0.033 ng/mL (0.00-0.029) H 03/25/18 18:09 Total Protein 5.1 g/dL (6.3-8.2) L D 03/27/18 03:35 Albumin 2.1 g/dL (3.9-5) L 03/27/18 03:35 Albumin/Globulin Ratio 0.7 % 03/27/18 03:35 Triglycerides 185 mg/dL (2-149) H 03/25/18 18:09 Cholesterol 215 mg/dL (50-199) H 03/25/18 18:09 LDL Cholesterol Direct 144 mg/dL (50-130) H 03/25/18 18:09 HDL Cholesterol 48 mg/dL (40-59) 03/25/18 18:09 Cholesterol/HDL Ratio 4.47 % 03/25/18 18:09 Urine Color Yellow (Yellow) 03/25/18 14:00 Urine Turbidity Clear (Clear) 03/25/18 14:00 Urine pH 5.0 (5.0-7.0) 03/25/18 14:00 Ur Specific [place] 1.021 (1.003-1.030) 03/25/18 14:00 Urine Protein 100 mg/dl mg/dL (Negative) 03/25/18 14:00 Urine Glucose (UA) >=500 mg/dL (Negative) 03/25/18 14:00 Urine Ketones 80 mg/dL (Negative) 03/25/18 14:00 Urine Blood Sm (Negative) 03/25/18 14:00 Urine Nitrite Neg (Negative) 03/25/18 14:00 Urine Bilirubin Neg (Negative) 03/25/18 14:00 Urine Urobilinogen < 2.0 mg/dL (<2.0) 03/25/18 14:00 Ur Leukocyte Esterase Neg (Negative) 03/25/18 14:00 Urine WBC (Auto) 1.0 /HPF (0.0-6.0) 03/25/18 14:00 Urine RBC (Auto) 1.0 /HPF (0.0-6.0) 03/25/18 14:00 Urine Bacteria (Auto) 1+ /HPF (Negative) 03/25/18 14:00 Urine Mucus Few /HPF 03/25/18 14:00 Urine Opiates Screen Presumptive negative 03/25/18 14:19 Urine Methadone Screen Presumptive negative 03/25/18 14:19 Ur Barbiturates Screen Presumptive negative 03/25/18 14:19 Ur Phencyclidine Scrn Presumptive negative 03/25/18 14:19 Ur Amphetamines Screen Presumptive negative 03/25/18 14:19 U Benzodiazepines Scrn Presumptive negative 03/25/18 14:19 Urine Cocaine Screen Presumptive negative 03/25/18 14:19 U Marijuana (THC) Screen Presumptive negative 03/25/18 14:19 Drugs of Abuse Note Disclamer 03/25/18 14:19 Blood Type O POSITIVE 04/01/18 11:13 Antibody Screen Negative 04/01/18 11:13 Crossmatch See Detail 04/01/18 11:13
[2018-04-03] MEDS: SODIUM CHLORIDE FLUSH SYRINGE 10 ML IV SCH (12:00)
[2018-04-03] MEDS: PROzac PO SCH (12:00)
[2018-04-03] MEDS: PEPCID PO SCH ×2 (12:00→22:45)
[2018-04-03] MEDS: MINIPRESS PO SCH ×2 (12:00→22:45)
[2018-04-03] MEDS ORDERED: D10W 1,000 ML IV SCH (12:00)
[2018-04-03] MEDS: BABY ASPIRIN PO SCH (12:00)
[2018-04-03] MEDS: COREG PO SCH ×2 (12:00→22:45)
[2018-04-03] MEDS: CATAPRES-TTS PATCH TD SCH (13:00)
--- NOTE | 2018-04-03 13:10 | Gastroenterology Progress Note ---
Assessment and Plan - Patient Problems (1) Anemia Current Visit: Yes Status: Acute Plan to address problem: No signs of acute blood loss during this admission. Stable GI diana for outpatient work up. Patient was given my contact information. I will s/o at this point and see him in the office in 2-3 weeks. Subjective Date of service: 04/03/18 Principal diagnosis: anemia Interval history: The patient reports feeling well overall. Eating well. No nausea and vomiting. Stools are brown and non bloody/non melenic. Objective - Constitutional Vitals: Temp Pulse Resp BP Pulse Ox 98.2 F 79 20 164/72 94 04/03/18 08:00 04/03/18 08:26 04/03/18 08:26 04/03/18 08:26 04/03/18 09:57 General appearance: no acute distress - EENT ENT: hearing intact, clear oral mucosa, dentition normal - Respiratory Respiratory effort: normal Respiratory: bilateral: CTA - Cardiovascular Rhythm: regular - Gastrointestinal General gastrointestinal: Present: soft, non-tender, non-distended, normal bowel sounds - Neurologic Neurological: alert and oriented x3 - Labs CBC & Chem 7: 04/03/18 05:46 04/03/18 05:46 Labs: Laboratory Results - last 24 hr 03/29/18 03/29/18 04/02/18 22:26 22:36 12:36 WBC RBC Hgb Hct MCV MCH MCHC RDW Plt Count [place] % (Auto) Add Manual Diff Total Counted Seg Neuts % (Manual) Band Neutrophils % Lymphocytes % (Manual) Reactive Lymphs % (Man) Monocytes % (Manual) Eosinophils % (Manual) Basophils % (Manual) Metamyelocytes % Myelocytes % Promyelocytes % Blast Cells % Nucleated RBC % Seg Neutrophils # Man Band Neutrophils # Lymphocytes # (Manual) Abs React Lymphs (Man) Monocytes # (Manual) Eosinophils # (Manual) Basophils # (Manual) Metamyelocytes # Myelocytes # Promyelocytes # Blast Cells # WBC Morphology Hypersegmented Neuts Hyposegmented Neuts Hypogranular Neuts Smudge Cells Toxic Granulation Toxic Vacuolation Dohle Bodies Pelger-Huet Anomaly Loi Rods Platelet Estimate Clumped Platelets Plt Clumps, EDTA Large Platelets Giant Platelets Platelet Satelliting Plt Morphology Comment RBC Morphology Dimorphic RBCs Polychromasia Hypochromasia Poikilocytosis Anisocytosis Microcytosis Macrocytosis Spherocytes Pappenheimer Bodies Sickle Cells Target Cells Tear Drop Cells Ovalocytes Helmet Cells [place] Bodies [place] Rings Kiki Cells Bite Cells Crenated Cell Elliptocytes Acanthocytes (Spur) Rouleaux Hemoglobin C Crystals Schistocytes Malaria parasites Lev Bodies Hem Pathologist Commnt Sodium Potassium Chloride Carbon Dioxide Anion Gap BUN Creatinine Estimated GFR BUN/Creatinine Ratio Glucose POC Glucose < 40 L 172 H 259 H Calcium Phosphorus 04/02/18 04/02/18 04/03/18 16:36 22:01 04:20 WBC RBC Hgb Hct MCV MCH MCHC RDW Plt Count [place] % (Auto) Add Manual Diff Total Counted Seg Neuts % (Manual) Band Neutrophils % Lymphocytes % (Manual) Reactive Lymphs % (Man) Monocytes % (Manual) Eosinophils % (Manual) Basophils % (Manual) Metamyelocytes % Myelocytes % Promyelocytes % Blast Cells % Nucleated RBC % Seg Neutrophils # Man Band Neutrophils # Lymphocytes # (Manual) Abs React Lymphs (Man) Monocytes # (Manual) Eosinophils # (Manual) Basophils # (Manual) Metamyelocytes # Myelocytes # Promyelocytes # Blast Cells # WBC Morphology Hypersegmented Neuts Hyposegmented Neuts Hypogranular Neuts Smudge Cells Toxic Granulation Toxic Vacuolation Dohle Bodies Pelger-Huet Anomaly Loi Rods Platelet Estimate Clumped Platelets Plt Clumps, EDTA Large Platelets Giant Platelets Platelet Satelliting Plt Morphology Comment RBC Morphology Dimorphic RBCs Polychromasia Hypochromasia Poikilocytosis Anisocytosis Microcytosis Macrocytosis Spherocytes Pappenheimer Bodies Sickle Cells Target Cells Tear Drop Cells Ovalocytes Helmet Cells [place] Bodies [place] Rings [place]iki Cells Bite Cells Crenated Cell Elliptocytes Acanthocytes (Spur) Rouleaux Hemoglobin C Crystals Schistocytes Malaria parasites Lev Bodies Hem Pathologist Commnt Sodium Potassium Chloride Carbon Dioxide Anion Gap BUN Creatinine Estimated GFR BUN/Creatinine Ratio Glucose POC Glucose 297 H 206 H < 40 L Calcium Phosphorus 04/03/18 04/03/18 04/03/18 04:46 05:46 05:46 WBC 7.1 RBC 2.72 L Hgb 7.6 L Hct 22.4 L MCV 83 L MCH 28 MCHC 34 RDW 13.4 Plt Count 319 [place] % (Auto) [employer] Mechanical Engineer Add Manual Diff Complete Total Counted 100 Seg Neuts % (Manual) 64.0 Band Neutrophils % 0 Lymphocytes % (Manual) 13.0 L Reactive Lymphs % (Man) 0 Monocytes % (Manual) 19.0 H Eosinophils % (Manual) 3.0 Basophils % (Manual) 1.0 Metamyelocytes % 0 Myelocytes % 0 Promyelocytes % 0 Blast Cells % 0 Nucleated RBC % Not Reportable Seg Neutrophils # Man 4.5 Band Neutrophils # 0.0 Lymphocytes # (Manual) 0.9 L Abs React Lymphs (Man) 0.0 Monocytes # (Manual) 1.3 H Eosinophils # (Manual) 0.2 Basophils # (Manual) 0.1 Metamyelocytes # 0.0 Myelocytes # 0.0 Promyelocytes # 0.0 Blast Cells # 0.0 WBC Morphology Not Reportable Hypersegmented Neuts Not Reportable Hyposegmented Neuts Not Reportable Hypogranular Neuts Not Reportable Smudge Cells Not Reportable Toxic Granulation Not Reportable Toxic Vacuolation Not Reportable Dohle Bodies Not Reportable Pelger-Huet Anomaly Not Reportable Loi Rods Not Reportable Platelet Estimate Consistent w auto Clumped Platelets Not Reportable Plt Clumps, EDTA Not Reportable Large Platelets Not Reportable Giant Platelets Not Reportable Platelet Satelliting Not Reportable Plt Morphology Comment Not Reportable RBC Morphology Normal Dimorphic RBCs Not Reportable Polychromasia Not Reportable Hypochromasia Not Reportable Poikilocytosis Not Reportable Anisocytosis Not Reportable Microcytosis Not Reportable Macrocytosis Not Reportable Spherocytes Not Reportable Pappenheimer Bodies Not Reportable Sickle Cells Not Reportable Target Cells Not Reportable Tear Drop Cells Not Reportable Ovalocytes Not Reportable Helmet Cells Not Reportable [place] Bodies Not Reportable [place] Rings Not Reportable [place]iki Cells Not Reportable Bite Cells Not Reportable Crenated Cell Not Reportable Elliptocytes Not Reportable Acanthocytes (Spur) Not Reportable Rouleaux Not Reportable Hemoglobin C Crystals Not Reportable Schistocytes Not Reportable Malaria parasites Not Reportable Lev Bodies Not Reportable Hem Pathologist Commnt No Sodium 144 Potassium 3.6 Chloride 110.7 H Carbon Dioxide 22 Anion Gap 15 BUN 24 H Creatinine 1.5 Estimated GFR 59 BUN/Creatinine Ratio 16 Glucose 45 L POC Glucose 64 L Calcium 7.3 L Phosphorus 3.70 04/03/18 04/03/18 04/03/18 05:57 07:04 09:17 WBC RBC Hgb Hct MCV MCH MCHC RDW Plt Count [place] % (Auto) Add Manual Diff Total Counted Seg Neuts % (Manual) Band Neutrophils % Lymphocytes % (Manual) Reactive Lymphs % (Man) Monocytes % (Manual) Eosinophils % (Manual) Basophils % (Manual) Metamyelocytes % Myelocytes % Promyelocytes % Blast Cells % Nucleated RBC % Seg Neutrophils # Man Band Neutrophils # Lymphocytes # (Manual) Abs React Lymphs (Man) Monocytes # (Manual) Eosinophils # (Manual) Basophils # (Manual) Metamyelocytes # Myelocytes # Promyelocytes # Blast Cells # WBC Morphology Hypersegmented Neuts Hyposegmented Neuts Hypogranular Neuts Smudge Cells Toxic Granulation Toxic Vacuolation Dohle Bodies Pelger-Huet Anomaly Loi Rods Platelet Estimate Clumped Platelets Plt Clumps, EDTA Large Platelets Giant Platelets Platelet Satelliting Plt Morphology Comment RBC Morphology Dimorphic RBCs Polychromasia Hypochromasia Poikilocytosis Anisocytosis Microcytosis Macrocytosis Spherocytes Pappenheimer Bodies Sickle Cells Target Cells Tear Drop Cells Ovalocytes Helmet Cells [place] Bodies [place] Rings Kiki Cells Bite Cells Crenated Cell Elliptocytes Acanthocytes (Spur) Rouleaux Hemoglobin C Crystals Schistocytes Malaria parasites Lev Bodies Hem Pathologist Commnt Sodium Potassium Chloride Carbon Dioxide Anion Gap BUN Creatinine Estimated GFR BUN/Creatinine Ratio Glucose POC Glucose < 40 L 44 L 107 H Calcium Phosphorus 04/03/18 11:34 WBC RBC Hgb Hct MCV MCH MCHC RDW Plt Count [place] % (Auto) Add Manual Diff Total Counted Seg Neuts % (Manual) Band Neutrophils % Lymphocytes % (Manual) Reactive Lymphs % (Man) Monocytes % (Manual) Eosinophils % (Manual) Basophils % (Manual) Metamyelocytes % Myelocytes % Promyelocytes % Blast Cells % Nucleated RBC % Seg Neutrophils # Man Band Neutrophils # Lymphocytes # (Manual) Abs React Lymphs (Man) Monocytes # (Manual) Eosinophils # (Manual) Basophils # (Manual) Metamyelocytes # Myelocytes # Promyelocytes # Blast Cells # WBC Morphology Hypersegmented Neuts Hyposegmented Neuts Hypogranular Neuts Smudge Cells Toxic Granulation Toxic Vacuolation Dohle Bodies Pelger-Huet Anomaly Loi Rods Platelet Estimate Clumped Platelets Plt Clumps, EDTA Large Platelets Giant Platelets Platelet Satelliting Plt Morphology Comment RBC Morphology Dimorphic RBCs Polychromasia Hypochromasia Poikilocytosis Anisocytosis Microcytosis Macrocytosis Spherocytes Pappenheimer Bodies Sickle Cells Target Cells Tear Drop Cells Ovalocytes Helmet Cells [place] Bodies [place] Rings [place] Cells Bite Cells Crenated Cell Elliptocytes Acanthocytes (Spur) Rouleaux Hemoglobin C Crystals Schistocytes Malaria parasites Lev Bodies Hem Pathologist Commnt Sodium Potassium Chloride Carbon Dioxide Anion Gap BUN Creatinine Estimated GFR BUN/Creatinine Ratio Glucose POC Glucose 196 H Calcium Phosphorus
[2018-04-03] MEDS: HumuLIN R SUB-Q SCH ×2 (14:11→22:50)
--- NOTE | 2018-04-03 14:54 | Progress Note ---
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: -Cr worsening now. Albumin q6h X 3 doses ordered. -Renally dose meds -Strict intake and output -Obtain daily weight Acute Respiratory Failure: -extubated -Pulmonology on board DKA: -Improving -Per primary Essential Hypertension: -Titrate BP meds PRN to keep SBP <130 Glen Dimas MD [phone] Subjective Date of service: 04/03/18 Principal diagnosis: anemia Interval history: Feels tired. Objective - Exam Narrative Exam: General appearance: well-developed, well-nourished EENT: ATNC, PERRL, mucous membranes moist Neck: no JVD, no carotid bruit Respiratory: Present: Clear to Ascultation. Absent: Rales, Ronchi Cardiology: regular, S1S2 Gastrointestinal: normoactive bowel sounds, no tenderness, no distended Integumentary: no rash, warm and dry Neurologic: no focal deficit, no asterixis Musculoskeletal: other (no edema in BLE) Psychiatric: cooperative - Vital Signs Vital signs: Vital Signs - 12hr 04/03/18 04/03/18 04/03/18 04:34 08:00 08:26 Temperature 98.2 F 98.2 F Pulse Rate 79 Respiratory 20 20 Rate Blood Pressure 159/76 164/72 O2 Sat by Pulse 93 Oximetry 04/03/18 09:57 Temperature Pulse Rate Respiratory Rate Blood Pressure O2 Sat by Pulse 94 Oximetry - Lab 04/03/18 05:46 04/03/18 05:46 Most recent lab results Calcium 7.3 mg/dL (8.4-10.2) L 04/03/18 05:46 Phosphorus 3.70 mg/dL (2.5-4.5) 04/03/18 05:46 Magnesium 2.00 mg/dL (1.7-2.3) 04/01/18 05:51
--- NOTE | 2018-04-03 16:51 | Progress Note ---
Assessment and Plan Acute respiratory failure, on mechanical ventilator. Sepsis syndrome. Diabetic ketoacidosis. Severe metabolic acidosis. Acute on chronic encephalopathy, rule out cerebrovascular accident. Medication noncompliance. Anemia. Hyperkalemia. Acute kidney injury. - supplemental oxygen as needed to keep O2 Sats > 90% - Continue empiric antibiotics for now, follow cultures then de-escalate based on SALOME - ST evaluation and advance diet - continue VTE prophylaxis - continue Stress ulcer prophylaxis - Agitation and analgesia - Avoid delirium, avoid benzodiazepines - Avoid nephrotoxic agents and adjust all medications for CrCl/GFR - CXR prn - Mobility, PT/OT consult placed - continue other care per attending / other consultants ..... improved ...25' Subjective Date of service: 04/03/18 Principal diagnosis: Acute hypoxic respiratory failure, DKA, BELKIS, Acute encephalopathy Interval history: Patient is seen today for: Acute hypoxic respiratory failure, DKA, BELKIS, Acute encephalopathy Seen and examined at bedside; 24hour events reviewed; nursing and respiratory care staff consulted; no adverse overnight events reported to me; resting in bed ; Objective Vital Signs - 12hr 04/03/18 04/03/18 04/03/18 08:00 08:26 09:57 Temperature 98.2 F Pulse Rate 79 Respiratory 20 Rate Blood Pressure 164/72 O2 Sat by Pulse 93 94 Oximetry Constitutional: no acute distress, other (middle aged AAM, normocephalic and atraumatic) Eyes: non-icteric ENT: oropharynx moist, other (mallampatti 2) Neck: supple, no lymphadenopathy, no JVD, other (no thyromegaly) Effort: normal Ascultation: Bilateral: diminished breath sounds, rhonchi (posterior base) Percussion: Bilateral: not dull Cardiovascular: regular rate and rhythm, other (No R/M) Gastrointestinal: normoactive bowel sounds, soft, non-tender, non-distended, other ( No HSM) Integumentary: normal Extremities: no cyanosis, pulses normal, no ischemia or petechiae, edema (to hands) Neurologic: normal mental status, non-focal exam (grossly), pupils equal and round, CN II-XII normal, motor strength normal and Psychiatric: mood appropriate, affect normal CBC and BMP: 04/03/18 05:46 04/03/18 05:46 ABG, PT/INR, D-dimer: ABG POC ABG pH 7.405 (7.35-7.45) 03/28/18 03:49 POC ABG pCO2 38.6 (35-45) 03/28/18 03:49 POC ABG pO2 102 (80-105) 03/28/18 03:49 POC ABG HCO3 24.2 03/28/18 03:49 POC ABG Total CO2 25 03/28/18 03:49 POC ABG O2 Sat 98 03/28/18 03:49 Abnormal lab findings: Abnormal Labs 03/25/18 03/25/18 03/25/18 13:48 14:00 14:00 WBC 15.3 H RBC Hgb 10.5 L Hct MCV 95 H MCH 27 L MCHC 28 L RDW Plt Count Lymph % (Auto) 8.5 L [place] % (Auto) Lymph # [place] # Seg Neutrophils % 86.4 H Seg Neuts % (Manual) Lymphocytes % (Manual) Monocytes % (Manual) Seg Neutrophils # 13.2 H Lymphocytes # (Manual) Monocytes # (Manual) POC ABG pH POC ABG pCO2 POC ABG pO2 VBG pH Sodium 132 L Potassium 8.1 H* Chloride 87.8 L Carbon Dioxide 3 L* BUN 43 H Creatinine 2.6 H Glucose 1026 H* POC Glucose > 500 H Hemoglobin A1c Lactic Acid Calcium Phosphorus TIBC Transferrin Ferritin AST Total Creatine Kinase Troponin T Total Protein Albumin Triglycerides Cholesterol LDL Cholesterol Direct Crossmatch 03/25/18 03/25/18 03/25/18 14:00 14:08 14:29 WBC RBC Hgb Hct MCV MCH MCHC RDW Plt Count Lymph % (Auto) [place] % (Auto) Lymph # [place] # Seg Neutrophils % Seg Neuts % (Manual) Lymphocytes % (Manual) Monocytes % (Manual) Seg Neutrophils # Lymphocytes # (Manual) Monocytes # (Manual) POC ABG pH 6.952 L POC ABG pCO2 25.8 L POC ABG pO2 559 H VBG pH Sodium Potassium Chloride Carbon Dioxide BUN Creatinine Glucose POC Glucose Hemoglobin A1c Lactic Acid 10.10 H* Calcium Phosphorus 8.70 H TIBC Transferrin Ferritin AST Total Creatine Kinase Troponin T Total Protein Albumin 2.6 L Triglycerides Cholesterol LDL Cholesterol Direct Crossmatch 03/25/18 03/25/18 03/25/18 14:41 15:40 15:40 WBC RBC Hgb Hct MCV MCH MCHC RDW Plt Count Lymph % (Auto) [place] % (Auto) Lymph # [place] # Seg Neutrophils % Seg Neuts % (Manual) Lymphocytes % (Manual) Monocytes % (Manual) Seg Neutrophils # Lymphocytes # (Manual) Monocytes # (Manual) POC ABG pH POC ABG pCO2 POC ABG pO2 VBG pH 7.000 L* Sodium Potassium 6.7 H* Chloride 97.5 L Carbon Dioxide 5 L* BUN 43 H Creatinine 2.5 H Glucose 893 H* POC Glucose Hemoglobin A1c Lactic Acid Calcium 7.5 L Phosphorus 9.10 H TIBC Transferrin Ferritin AST Total Creatine Kinase Troponin T Total Protein Albumin Triglycerides Cholesterol LDL Cholesterol Direct Crossmatch 03/25/18 03/25/18 03/25/18 18:09 18:12 18:55 WBC RBC Hgb Hct MCV MCH MCHC RDW Plt Count Lymph % (Auto) [place] % (Auto) Lymph # [place] # Seg Neutrophils % Seg Neuts % (Manual) Lymphocytes % (Manual) Monocytes % (Manual) Seg Neutrophils # Lymphocytes # (Manual) Monocytes # (Manual) POC ABG pH POC ABG pCO2 POC ABG pO2 VBG pH Sodium 133 L Potassium 5.7 H Chloride 93.1 L Carbon Dioxide 10 L BUN 43 H Creatinine 2.5 H Glucose 786 H* POC Glucose Hemoglobin A1c 8.9 H Lactic Acid Calcium 7.8 L Phosphorus TIBC Transferrin Ferritin AST Total Creatine Kinase 226 H Troponin T 0.033 H Total Protein Albumin Triglycerides 185 H Cholesterol 215 H LDL Cholesterol Direct 144 H Crossmatch 03/25/18 03/25/18 03/25/18 18:55 21:00 21:03 WBC RBC Hgb Hct MCV MCH MCHC RDW Plt Count Lymph % (Auto) [place] % (Auto) Lymph # [place] # Seg Neutrophils % Seg Neuts % (Manual) Lymphocytes % (Manual) Monocytes % (Manual) Seg Neutrophils # Lymphocytes # (Manual) Monocytes # (Manual) POC ABG pH POC ABG pCO2 POC ABG pO2 VBG pH Sodium 136 L Potassium 6.7 H* Chloride Carbon Dioxide 7 L* BUN 45 H Creatinine 2.6 H Glucose 879 H* POC Glucose > 500 H Hemoglobin A1c Lactic Acid Calcium 7.8 L Phosphorus 9.20 H TIBC Transferrin Ferritin AST Total Creatine Kinase Troponin T Total Protein Albumin Triglycerides Cholesterol LDL Cholesterol Direct Crossmatch 03/25/18 03/25/18 03/25/18 21:39 22:06 23:20 WBC RBC Hgb Hct MCV MCH MCHC RDW Plt Count Lymph % (Auto) [place] % (Auto) Lymph # [place] # Seg Neutrophils % Seg Neuts % (Manual) Lymphocytes % (Manual) Monocytes % (Manual) Seg Neutrophils # Lymphocytes # (Manual) Monocytes # (Manual) POC ABG pH 7.272 L POC ABG pCO2 14.2 L POC ABG pO2 263 H VBG pH Sodium Potassium Chloride Carbon Dioxide 7 L* BUN 47 H Creatinine 2.9 H Glucose 702 H* POC Glucose > 500 H Hemoglobin A1c Lactic Acid Calcium 7.6 L Phosphorus TIBC Transferrin Ferritin AST Total Creatine Kinase Troponin T Total Protein Albumin Triglycerides Cholesterol LDL Cholesterol Direct Crossmatch 03/25/18 03/26/18 03/26/18 23:20 00:17 01:08 WBC RBC Hgb Hct MCV MCH MCHC RDW Plt Count Lymph % (Auto) [place] % (Auto) Lymph # [place] # Seg Neutrophils % Seg Neuts % (Manual) Lymphocytes % (Manual) Monocytes % (Manual) Seg Neutrophils # Lymphocytes # (Manual) Monocytes # (Manual) POC ABG pH POC ABG pCO2 POC ABG pO2 VBG pH Sodium Potassium Chloride Carbon Dioxide BUN Creatinine Glucose POC Glucose > 500 H 447 H 484 H Hemoglobin A1c Lactic Acid Calcium Phosphorus TIBC Transferrin Ferritin AST Total Creatine Kinase Troponin T Total Protein Albumin Triglycerides Cholesterol LDL Cholesterol Direct Crossmatch 03/26/18 03/26/18 03/26/18 02:31 03:07 04:09 WBC RBC Hgb Hct MCV MCH MCHC RDW Plt Count Lymph % (Auto) [place] % (Auto) Lymph # [place] # Seg Neutrophils % Seg Neuts % (Manual) Lymphocytes % (Manual) Monocytes % (Manual) Seg Neutrophils # Lymphocytes # (Manual) Monocytes # (Manual) POC ABG pH POC ABG pCO2 POC ABG pO2 VBG pH Sodium Potassium Chloride Carbon Dioxide BUN Creatinine Glucose POC Glucose > 500 H 467 H 361 H Hemoglobin A1c Lactic Acid Calcium Phosphorus TIBC Transferrin Ferritin AST Total Creatine Kinase Troponin T Total Protein Albumin Triglycerides Cholesterol LDL Cholesterol Direct Crossmatch 03/26/18 03/26/18 03/26/18 04:25 05:24 06:19 WBC RBC Hgb Hct MCV MCH MCHC RDW Plt Count Lymph % (Auto) [place] % (Auto) Lymph # [place] # Seg Neutrophils % Seg Neuts % (Manual) Lymphocytes % (Manual) Monocytes % (Manual) Seg Neutrophils # Lymphocytes # (Manual) Monocytes # (Manual) POC ABG pH POC ABG pCO2 POC ABG pO2 VBG pH Sodium 150 H D Potassium 3.4 L D Chloride 118.3 H Carbon Dioxide 16 L D BUN 45 H Creatinine 2.7 H Glucose 278 H POC Glucose 306 H 188 H Hemoglobin A1c Lactic Acid Calcium 7.7 L Phosphorus TIBC Transferrin Ferritin AST Total Creatine Kinase Troponin T Total Protein Albumin Triglycerides Cholesterol LDL Cholesterol Direct Crossmatch 03/26/18 03/26/18 03/26/18 07:09 08:20 09:12 WBC RBC Hgb Hct MCV MCH MCHC RDW Plt Count Lymph % (Auto) [place] % (Auto) Lymph # [place] # Seg Neutrophils % Seg Neuts % (Manual) Lymphocytes % (Manual) Monocytes % (Manual) Seg Neutrophils # Lymphocytes # (Manual) Monocytes # (Manual) POC ABG pH 7.530 H POC ABG pCO2 22.0 L POC ABG pO2 147 H VBG pH Sodium Potassium Chloride Carbon Dioxide BUN Creatinine Glucose POC Glucose 148 H 170 H Hemoglobin A1c Lactic Acid Calcium Phosphorus TIBC Transferrin Ferritin AST Total Creatine Kinase Troponin T Total Protein Albumin Triglycerides Cholesterol LDL Cholesterol Direct Crossmatch 03/26/18 03/26/18 03/26/18 09:15 10:30 10:46 WBC RBC Hgb Hct MCV MCH MCHC RDW Plt Count Lymph % (Auto) [place] % (Auto) Lymph # [place] # Seg Neutrophils % Seg Neuts % (Manual) Lymphocytes % (Manual) Monocytes % (Manual) Seg Neutrophils # Lymphocytes # (Manual) Monocytes # (Manual) POC ABG pH POC ABG pCO2 POC ABG pO2 VBG pH Sodium 152 H Potassium 3.1 L Chloride 121.4 H Carbon Dioxide BUN 43 H Creatinine 2.6 H Glucose 105 H POC Glucose 177 H 125 H Hemoglobin A1c Lactic Acid Calcium 7.5 L Phosphorus TIBC Transferrin Ferritin AST Total Creatine Kinase Troponin T Total Protein Albumin Triglycerides Cholesterol LDL Cholesterol Direct Crossmatch 03/26/18 03/26/18 03/26/18 14:57 15:35 18:12 WBC RBC Hgb Hct MCV MCH MCHC RDW Plt Count Lymph % (Auto) [place] % (Auto) Lymph # [place] # Seg Neutrophils % Seg Neuts % (Manual) Lymphocytes % (Manual) Monocytes % (Manual) Seg Neutrophils # Lymphocytes # (Manual) Monocytes # (Manual) POC ABG pH POC ABG pCO2 POC ABG pO2 VBG pH Sodium 148 H Potassium Chloride 117.5 H Carbon Dioxide 18 L BUN 43 H Creatinine 2.5 H Glucose 135 H POC Glucose 159 H 245 H Hemoglobin A1c Lactic Acid Calcium 7.3 L Phosphorus TIBC Transferrin Ferritin AST Total Creatine Kinase Troponin T Total Protein Albumin Triglycerides Cholesterol LDL Cholesterol Direct Crossmatch 03/26/18 03/26/18 03/27/18 19:27 21:42 02:03 WBC RBC Hgb Hct MCV MCH MCHC RDW Plt Count Lymph % (Auto) [place] % (Auto) Lymph # [place] # Seg Neutrophils % Seg Neuts % (Manual) Lymphocytes % (Manual) Monocytes % (Manual) Seg Neutrophils # Lymphocytes # (Manual) Monocytes # (Manual) POC ABG pH POC ABG pCO2 POC ABG pO2 VBG pH Sodium Potassium Chloride 115.0 H Carbon Dioxide 20 L BUN 42 H Creatinine 2.4 H Glucose 221 H POC Glucose 261 H 254 H Hemoglobin A1c Lactic Acid Calcium 7.1 L Phosphorus TIBC Transferrin Ferritin AST Total Creatine Kinase Troponin T Total Protein Albumin Triglycerides Cholesterol LDL Cholesterol Direct Crossmatch 03/27/18 03/27/18 03/27/18 03:35 03:35 05:20 WBC 12.3 H RBC 3.05 L Hgb 8.3 L Hct 25.3 L D MCV 83 L MCH 27 L MCHC RDW Plt Count Lymph % (Auto) [place] % (Auto) 8.6 H Lymph # [place] # 1.1 H Seg Neutrophils % 76.5 H Seg Neuts % (Manual) Lymphocytes % (Manual) Monocytes % (Manual) Seg Neutrophils # 9.4 H Lymphocytes # (Manual) Monocytes # (Manual) POC ABG pH POC ABG pCO2 POC ABG pO2 VBG pH Sodium Potassium Chloride 112.6 H Carbon Dioxide BUN 36 H Creatinine 2.1 H Glucose 244 H POC Glucose 263 H Hemoglobin A1c Lactic Acid Calcium 7.1 L Phosphorus TIBC Transferrin Ferritin AST 44 H Total Creatine Kinase Troponin T Total Protein 5.1 L D Albumin 2.1 L Triglycerides Cholesterol LDL Cholesterol Direct Crossmatch 03/27/18 03/27/18 03/27/18 08:22 13:00 14:06 WBC RBC Hgb Hct MCV MCH MCHC RDW Plt Count Lymph % (Auto) [place] % (Auto) Lymph # [place] # Seg Neutrophils % Seg Neuts % (Manual) Lymphocytes % (Manual) Monocytes % (Manual) Seg Neutrophils # Lymphocytes # (Manual) Monocytes # (Manual) POC ABG pH POC ABG pCO2 34.7 L POC ABG pO2 VBG pH Sodium Potassium Chloride Carbon Dioxide BUN Creatinine Glucose POC Glucose 306 H 233 H Hemoglobin A1c Lactic Acid Calcium Phosphorus TIBC Transferrin Ferritin AST Total Creatine Kinase Troponin T Total Protein Albumin Triglycerides Cholesterol LDL Cholesterol Direct Crossmatch 03/27/18 03/27/18 03/27/18 16:15 18:11 21:44 WBC RBC Hgb Hct MCV MCH MCHC RDW Plt Count Lymph % (Auto) [place] % (Auto) Lymph # [place] # Seg Neutrophils % Seg Neuts % (Manual) Lymphocytes % (Manual) Monocytes % (Manual) Seg Neutrophils # Lymphocytes # (Manual) Monocytes # (Manual) POC ABG pH POC ABG pCO2 POC ABG pO2 VBG pH Sodium Potassium Chloride Carbon Dioxide BUN Creatinine Glucose POC Glucose 243 H 226 H 224 H Hemoglobin A1c Lactic Acid Calcium Phosphorus TIBC Transferrin Ferritin AST Total Creatine Kinase Troponin T Total Protein Albumin Triglycerides Cholesterol LDL Cholesterol Direct Crossmatch 03/28/18 03/28/18 03/28/18 02:07 04:35 04:35 WBC RBC Hgb Hct MCV MCH MCHC RDW Plt Count Lymph % (Auto) [place] % (Auto) Lymph # [place] # Seg Neutrophils % Seg Neuts % (Manual) Lymphocytes % (Manual) Monocytes % (Manual) Seg Neutrophils # Lymphocytes # (Manual) Monocytes # (Manual) POC ABG pH POC ABG pCO2 POC ABG pO2 VBG pH Sodium Potassium Chloride Carbon Dioxide BUN Creatinine Glucose POC Glucose 220 H Hemoglobin A1c Lactic Acid Calcium Phosphorus TIBC 115 L Transferrin 94 L Ferritin 412.1 H AST Total Creatine Kinase Troponin T Total Protein Albumin Triglycerides Cholesterol LDL Cholesterol Direct Crossmatch 03/28/18 03/28/18 03/28/18 05:27 09:52 10:59 WBC RBC 3.22 L Hgb 9.1 L Hct 26.8 L MCV 83 L MCH MCHC RDW Plt Count 134 L Lymph % (Auto) [place] % (Auto) Lymph # [place] # Seg Neutrophils % Seg Neuts % (Manual) Lymphocytes % (Manual) Monocytes % (Manual) Seg Neutrophils # Lymphocytes # (Manual) Monocytes # (Manual) POC ABG pH POC ABG pCO2 POC ABG pO2 VBG pH Sodium Potassium Chloride Carbon Dioxide BUN Creatinine Glucose POC Glucose 280 H 332 H Hemoglobin A1c Lactic Acid Calcium Phosphorus TIBC Transferrin Ferritin AST Total Creatine Kinase Troponin T Total Protein Albumin Triglycerides Cholesterol LDL Cholesterol Direct Crossmatch 03/28/18 03/28/18 03/28/18 10:59 14:39 17:47 WBC RBC Hgb Hct MCV MCH MCHC RDW Plt Count Lymph % (Auto) [place] % (Auto) Lymph # [place] # Seg Neutrophils % Seg Neuts % (Manual) Lymphocytes % (Manual) Monocytes % (Manual) Seg Neutrophils # Lymphocytes # (Manual) Monocytes # (Manual) POC ABG pH POC ABG pCO2 POC ABG pO2 VBG pH Sodium 136 L Potassium Chloride Carbon Dioxide BUN 29 H Creatinine Glucose 310 H POC Glucose 250 H 132 H Hemoglobin A1c Lactic Acid Calcium 7.0 L Phosphorus TIBC Transferrin Ferritin AST Total Creatine Kinase Troponin T Total Protein Albumin Triglycerides Cholesterol LDL Cholesterol Direct Crossmatch 03/29/18 03/29/18 03/29/18 01:49 04:23 05:45 WBC RBC 3.13 L Hgb 8.8 L Hct 25.8 L MCV 82 L MCH MCHC RDW 12.7 L Plt Count 132 L Lymph % (Auto) 10.8 L [place] % (Auto) 9.1 H Lymph # 1.0 L [place] # Seg Neutrophils % 79.1 H Seg Neuts % (Manual) Lymphocytes % (Manual) Monocytes % (Manual) Seg Neutrophils # Lymphocytes # (Manual) Monocytes # (Manual) POC ABG pH POC ABG pCO2 POC ABG pO2 VBG pH Sodium 134 L Potassium Chloride Carbon Dioxide BUN 27 H Creatinine Glucose 172 H POC Glucose 122 H Hemoglobin A1c Lactic Acid Calcium 7.1 L Phosphorus TIBC Transferrin Ferritin AST Total Creatine Kinase Troponin T Total Protein Albumin Triglycerides Cholesterol LDL Cholesterol Direct Crossmatch 03/29/18 03/29/18 03/29/18 05:57 09:19 13:09 WBC RBC Hgb Hct MCV MCH MCHC RDW Plt Count Lymph % (Auto) [place] % (Auto) Lymph # [place] # Seg Neutrophils % Seg Neuts % (Manual) Lymphocytes % (Manual) Monocytes % (Manual) Seg Neutrophils # Lymphocytes # (Manual) Monocytes # (Manual) POC ABG pH POC ABG pCO2 POC ABG pO2 VBG pH Sodium Potassium Chloride Carbon Dioxide BUN Creatinine Glucose POC Glucose 224 H 316 H 345 H Hemoglobin A1c Lactic Acid Calcium Phosphorus TIBC Transferrin Ferritin AST Total Creatine Kinase Troponin T Total Protein Albumin Triglycerides Cholesterol LDL Cholesterol Direct Crossmatch 03/29/18 03/29/18 03/29/18 16:27 22:26 22:36 WBC RBC Hgb Hct MCV MCH MCHC RDW Plt Count Lymph % (Auto) [place] % (Auto) Lymph # [place] # Seg Neutrophils % Seg Neuts % (Manual) Lymphocytes % (Manual) Monocytes % (Manual) Seg Neutrophils # Lymphocytes # (Manual) Monocytes # (Manual) POC ABG pH POC ABG pCO2 POC ABG pO2 VBG pH Sodium Potassium Chloride Carbon Dioxide BUN Creatinine Glucose POC Glucose 210 H < 40 L 172 H Hemoglobin A1c Lactic Acid Calcium Phosphorus TIBC Transferrin Ferritin AST Total Creatine Kinase Troponin T Total Protein Albumin Triglycerides Cholesterol LDL Cholesterol Direct Crossmatch 03/30/18 03/30/18 03/30/18 00:07 05:12 06:39 WBC RBC 2.95 L Hgb 8.3 L Hct 24.6 L MCV 83 L MCH MCHC RDW 12.9 L Plt Count Lymph % (Auto) [place] % (Auto) 13.5 H Lymph # [place] # 0.9 H Seg Neutrophils % Seg Neuts % (Manual) Lymphocytes % (Manual) Monocytes % (Manual) Seg Neutrophils # Lymphocytes # (Manual) Monocytes # (Manual) POC ABG pH POC ABG pCO2 POC ABG pO2 VBG pH Sodium Potassium Chloride Carbon Dioxide BUN Creatinine Glucose POC Glucose 69 L 213 H Hemoglobin A1c Lactic Acid Calcium Phosphorus TIBC Transferrin Ferritin AST Total Creatine Kinase Troponin T Total Protein Albumin Triglycerides Cholesterol LDL Cholesterol Direct Crossmatch 03/30/18 03/30/18 03/30/18 06:39 10:06 13:59 WBC RBC Hgb Hct MCV MCH MCHC RDW Plt Count Lymph % (Auto) [place] % (Auto) Lymph # [place] # Seg Neutrophils % Seg Neuts % (Manual) Lymphocytes % (Manual) Monocytes % (Manual) Seg Neutrophils # Lymphocytes # (Manual) Monocytes # (Manual) POC ABG pH POC ABG pCO2 POC ABG pO2 VBG pH Sodium 133 L Potassium 3.5 L D Chloride 95.6 L Carbon Dioxide BUN 34 H Creatinine Glucose 241 H POC Glucose 368 H 237 H Hemoglobin A1c Lactic Acid Calcium 7.3 L Phosphorus TIBC Transferrin Ferritin AST Total Creatine Kinase Troponin T Total Protein Albumin Triglycerides Cholesterol LDL Cholesterol Direct Crossmatch 03/30/18 03/30/18 03/30/18 16:39 20:47 21:30 WBC RBC Hgb Hct MCV MCH MCHC RDW Plt Count Lymph % (Auto) [place] % (Auto) Lymph # [place] # Seg Neutrophils % Seg Neuts % (Manual) Lymphocytes % (Manual) Monocytes % (Manual) Seg Neutrophils # Lymphocytes # (Manual) Monocytes # (Manual) POC ABG pH POC ABG pCO2 POC ABG pO2 VBG pH Sodium Potassium Chloride Carbon Dioxide BUN Creatinine Glucose POC Glucose 176 H 60 L 113 H Hemoglobin A1c Lactic Acid Calcium Phosphorus TIBC Transferrin Ferritin AST Total Creatine Kinase Troponin T Total Protein Albumin Triglycerides Cholesterol LDL Cholesterol Direct Crossmatch 03/31/18 03/31/18 03/31/18 02:07 06:45 07:24 WBC RBC 3.06 L Hgb 8.6 L Hct 25.3 L MCV 83 L MCH MCHC RDW 12.7 L Plt Count Lymph % (Auto) [place] % (Auto) Lymph # [place] # Seg Neutrophils % Seg Neuts % (Manual) 73.0 H Lymphocytes % (Manual) 6.0 L Monocytes % (Manual) 21.0 H Seg Neutrophils # Lymphocytes # (Manual) 0.4 L Monocytes # (Manual) 1.4 H POC ABG pH POC ABG pCO2 POC ABG pO2 VBG pH Sodium Potassium Chloride Carbon Dioxide BUN Creatinine Glucose POC Glucose 140 H 260 H Hemoglobin A1c Lactic Acid Calcium Phosphorus TIBC Transferrin Ferritin AST Total Creatine Kinase Troponin T Total Protein Albumin Triglycerides Cholesterol LDL Cholesterol Direct Crossmatch 03/31/18 03/31/18 03/31/18 07:24 11:51 13:08 WBC RBC Hgb Hct MCV MCH MCHC RDW Plt Count Lymph % (Auto) [place] % (Auto) Lymph # [place] # Seg Neutrophils % Seg Neuts % (Manual) Lymphocytes % (Manual) Monocytes % (Manual) Seg Neutrophils # Lymphocytes # (Manual) Monocytes # (Manual) POC ABG pH POC ABG pCO2 POC ABG pO2 VBG pH Sodium 134 L Potassium Chloride Carbon Dioxide BUN 36 H Creatinine 1.8 H Glucose 271 H POC Glucose > 500 H > 500 H Hemoglobin A1c Lactic Acid Calcium 7.3 L Phosphorus TIBC Transferrin Ferritin AST Total Creatine Kinase Troponin T Total Protein Albumin Triglycerides Cholesterol LDL Cholesterol Direct Crossmatch 03/31/18 03/31/18 03/31/18 14:00 16:15 16:29 WBC RBC Hgb Hct MCV MCH MCHC RDW Plt Count Lymph % (Auto) [place] % (Auto) Lymph # [place] # Seg Neutrophils % Seg Neuts % (Manual) Lymphocytes % (Manual) Monocytes % (Manual) Seg Neutrophils # Lymphocytes # (Manual) Monocytes # (Manual) POC ABG pH POC ABG pCO2 POC ABG pO2 VBG pH Sodium Potassium Chloride Carbon Dioxide BUN Creatinine Glucose POC Glucose > 500 H 405 H 424 H Hemoglobin A1c Lactic Acid Calcium Phosphorus TIBC Transferrin Ferritin AST Total Creatine Kinase Troponin T Total Protein Albumin Triglycerides Cholesterol LDL Cholesterol Direct Crossmatch 03/31/18 04/01/18 04/01/18 21:14 00:21 05:51 WBC RBC 2.55 L Hgb 7.1 L Hct 21.2 L MCV 83 L MCH MCHC RDW 12.5 L Plt Count Lymph % (Auto) [place] % (Auto) Lymph # [place] # Seg Neutrophils % Seg Neuts % (Manual) Lymphocytes % (Manual) Monocytes % (Manual) 22.0 H Seg Neutrophils # Lymphocytes # (Manual) Monocytes # (Manual) 1.1 H POC ABG pH POC ABG pCO2 POC ABG pO2 VBG pH Sodium Potassium Chloride Carbon Dioxide BUN Creatinine Glucose POC Glucose 393 H 384 H Hemoglobin A1c Lactic Acid Calcium Phosphorus TIBC Transferrin Ferritin AST Total Creatine Kinase Troponin T Total Protein Albumin Triglycerides Cholesterol LDL Cholesterol Direct Crossmatch 04/01/18 04/01/18 04/01/18 05:51 06:52 11:13 WBC RBC Hgb Hct MCV MCH MCHC RDW Plt Count Lymph % (Auto) [place] % (Auto) Lymph # [place] # Seg Neutrophils % Seg Neuts % (Manual) Lymphocytes % (Manual) Monocytes % (Manual) Seg Neutrophils # Lymphocytes # (Manual) Monocytes # (Manual) POC ABG pH POC ABG pCO2 POC ABG pO2 VBG pH Sodium Potassium Chloride Carbon Dioxide BUN 35 H Creatinine Glucose 120 H POC Glucose 114 H Hemoglobin A1c Lactic Acid Calcium 7.3 L Phosphorus TIBC Transferrin Ferritin AST Total Creatine Kinase Troponin T Total Protein Albumin Triglycerides Cholesterol LDL Cholesterol Direct Crossmatch See Detail 04/01/18 04/01/18 04/01/18 11:16 12:06 16:04 WBC RBC Hgb 7.3 L Hct 21.5 L MCV MCH MCHC RDW Plt Count Lymph % (Auto) [place] % (Auto) Lymph # [place] # Seg Neutrophils % Seg Neuts % (Manual) Lymphocytes % (Manual) Monocytes % (Manual) Seg Neutrophils # Lymphocytes # (Manual) Monocytes # (Manual) POC ABG pH POC ABG pCO2 POC ABG pO2 VBG pH Sodium Potassium Chloride Carbon Dioxide BUN Creatinine Glucose POC Glucose 223 H 225 H Hemoglobin A1c Lactic Acid Calcium Phosphorus TIBC Transferrin Ferritin AST Total Creatine Kinase Troponin T Total Protein Albumin Triglycerides Cholesterol LDL Cholesterol Direct Crossmatch 04/01/18 04/01/18 04/01/18 16:46 19:47 21:15 WBC RBC Hgb 7.7 L Hct 23.5 L MCV MCH MCHC RDW Plt Count Lymph % (Auto) [place] % (Auto) Lymph # [place] # Seg Neutrophils % Seg Neuts % (Manual) Lymphocytes % (Manual) Monocytes % (Manual) Seg Neutrophils # Lymphocytes # (Manual) Monocytes # (Manual) POC ABG pH POC ABG pCO2 POC ABG pO2 VBG pH Sodium Potassium Chloride Carbon Dioxide BUN Creatinine Glucose POC Glucose 219 H 380 H Hemoglobin A1c Lactic Acid Calcium Phosphorus TIBC Transferrin Ferritin AST Total Creatine Kinase Troponin T Total Protein Albumin Triglycerides Cholesterol LDL Cholesterol Direct Crossmatch 04/02/18 04/02/18 04/02/18 05:47 06:57 07:52 WBC RBC 2.80 L Hgb 7.7 L Hct 23.5 L MCV MCH MCHC RDW Plt Count Lymph % (Auto) [place] % (Auto) Lymph # [place] # Seg Neutrophils % Seg Neuts % (Manual) Lymphocytes % (Manual) Monocytes % (Manual) 25.0 H Seg Neutrophils # Lymphocytes # (Manual) 1.1 L Monocytes # (Manual) 1.3 H POC ABG pH POC ABG pCO2 POC ABG pO2 VBG pH Sodium Potassium Chloride Carbon Dioxide BUN Creatinine Glucose POC Glucose 49 L 111 H Hemoglobin A1c Lactic Acid Calcium Phosphorus TIBC Transferrin Ferritin AST Total Creatine Kinase Troponin T Total Protein Albumin Triglycerides Cholesterol LDL Cholesterol Direct Crossmatch 04/02/18 04/02/18 04/02/18 07:52 12:36 16:36 WBC RBC Hgb Hct MCV MCH MCHC RDW Plt Count Lymph % (Auto) [place] % (Auto) Lymph # [place] # Seg Neutrophils % Seg Neuts % (Manual) Lymphocytes % (Manual) Monocytes % (Manual) Seg Neutrophils # Lymphocytes # (Manual) Monocytes # (Manual) POC ABG pH POC ABG pCO2 POC ABG pO2 VBG pH Sodium Potassium Chloride Carbon Dioxide BUN 28 H Creatinine Glucose 115 H POC Glucose 259 H 297 H Hemoglobin A1c Lactic Acid Calcium 7.3 L Phosphorus TIBC Transferrin Ferritin AST Total Creatine Kinase Troponin T Total Protein Albumin Triglycerides Cholesterol LDL Cholesterol Direct Crossmatch 04/02/18 04/03/18 04/03/18 22:01 04:20 04:46 WBC RBC Hgb Hct MCV MCH MCHC RDW Plt Count Lymph % (Auto) [place] % (Auto) Lymph # [place] # Seg Neutrophils % Seg Neuts % (Manual) Lymphocytes % (Manual) Monocytes % (Manual) Seg Neutrophils # Lymphocytes # (Manual) Monocytes # (Manual) POC ABG pH POC ABG pCO2 POC ABG pO2 VBG pH Sodium Potassium Chloride Carbon Dioxide BUN Creatinine Glucose POC Glucose 206 H < 40 L 64 L Hemoglobin A1c Lactic Acid Calcium Phosphorus TIBC Transferrin Ferritin AST Total Creatine Kinase Troponin T Total Protein Albumin Triglycerides Cholesterol LDL Cholesterol Direct Crossmatch 04/03/18 04/03/18 04/03/18 05:46 05:46 05:57 WBC RBC 2.72 L Hgb 7.6 L Hct 22.4 L MCV 83 L MCH MCHC RDW Plt Count Lymph % (Auto) [place] % (Auto) Lymph # [place] # Seg Neutrophils % Seg Neuts % (Manual) Lymphocytes % (Manual) 13.0 L Monocytes % (Manual) 19.0 H Seg Neutrophils # Lymphocytes # (Manual) 0.9 L Monocytes # (Manual) 1.3 H POC ABG pH POC ABG pCO2 POC ABG pO2 VBG pH Sodium Potassium Chloride 110.7 H Carbon Dioxide BUN 24 H Creatinine Glucose 45 L POC Glucose < 40 L Hemoglobin A1c Lactic Acid Calcium 7.3 L Phosphorus TIBC Transferrin Ferritin AST Total Creatine Kinase Troponin T Total Protein Albumin Triglycerides Cholesterol LDL Cholesterol Direct Crossmatch 04/03/18 04/03/18 04/03/18 07:04 09:17 11:34 WBC RBC Hgb Hct MCV MCH MCHC RDW Plt Count Lymph % (Auto) [place] % (Auto) Lymph # [place] # Seg Neutrophils % Seg Neuts % (Manual) Lymphocytes % (Manual) Monocytes % (Manual) Seg Neutrophils # Lymphocytes # (Manual) Monocytes # (Manual) POC ABG pH POC ABG pCO2 POC ABG pO2 VBG pH Sodium Potassium Chloride Carbon Dioxide BUN Creatinine Glucose POC Glucose 44 L 107 H 196 H Hemoglobin A1c Lactic Acid Calcium Phosphorus TIBC Transferrin Ferritin AST Total Creatine Kinase Troponin T Total Protein Albumin Triglycerides Cholesterol LDL Cholesterol Direct Crossmatch Allied health notes reviewed: nursing
--- NOTE | 2018-04-03 17:43 | Consultation ---
History of Present Illness - Reason for Consult Consult date: 04/03/18 Bilateral Upper Extremity Superficial Venous Thrombosis Requesting physician: JING ROA - History of Present Illness This patient is a 52-year-old -[place] male that was admitted via the emergency room on 03/25/2018 due to nausea vomiting and abdominal pain. He is a juvenile onset diabetic, noncompliant with his insulin needs over the 2 days prior to this admission. He was found to be in DKA, and subsequently intubated for airway protection. He has since been extubated. During the course of this hospitalization he developed anasarca-like swelling with subsequent blistering of his upper extremities (primarily on the left). He was started on antibiotics , and a venous duplex was ordered. This revealed an acute superficial venous thrombosis involving the cephalic veins bilaterally; no evidence of acute DVT noted in either upper extremity. A Vascular surgery consult has been requested to further evaluate. The patient denies any previous history of known "blood clots". During the course was also positioned the patient's hemoglobin dropped from 10.5 -7.6. A gastrointestinal workup was initiated but no evidence of active acute GI blood loss was noted. Past History Past Medical History: diabetes, hypertension Past Surgical History: No surgical history Social history: no significant social history Family history: diabetes Medications and Allergies Allergies Allergy/AdvReac Type Severity Reaction Status Date / Time No Known Allergies Allergy Unverified 01/12/18 10:02 Home Medications Medication Instructions Recorded Confirmed Last Taken Type Aspirin 81 mg PO DAILY 01/13/18 03/26/18 Unknown History AtorvaSTATin [Lipitor] 40 mg PO QHS 01/13/18 03/26/18 Unknown History Carvedilol [Coreg] 6.25 mg PO BID 01/13/18 03/27/18 Unknown History FLUoxetine [PROzac] 10 mg PO QDAY 01/13/18 03/27/18 Unknown History Fluconazole [Diflucan] 200 mg PO 1XW 01/13/18 03/27/18 03/25/18 10:00 History 5mg Lisinopril/Hydrochlorothiazide 1 tab PO QDAY 01/13/18 03/26/18 03/25/18 10:00 History [Zestoretic 20-12.5 mg] 5mg Terazosin [Hytrin] 5 mg PO QHS 01/13/18 03/26/18 Unknown History Active Meds: Active Medications Albumin Human (Alburx 25% (Albumin)) 25 gm IV Q6H [facility] Stop: 04/04/18 04:01 Lipase/Protease/Amylase (Pancreramy Dr 10,500 Unit) 1 each FEEDTUBE PRN PRN PRN Reason: For Clogged Feeding Tube Aspirin (Baby Aspirin) 81 mg PO DAILY [facility] Last Admin: 04/02/18 10:07 Dose: 81 mg Atorvastatin Calcium (Lipitor) 40 mg PO QHS [facility] Last Admin: 04/02/18 23:47 Dose: 40 mg Carvedilol (Coreg) 25 mg PO BID [facility] Last Admin: 04/02/18 23:47 Dose: 25 mg Clonidine HCl (Catapres-Tts Patch) 0.2 mg TD We [facility] Last Admin: 03/27/18 10:09 Dose: 0.2 mg Dextrose (D50w (25gm) Syringe) 0 ml IV ONCE PRN PRN Reason: Hypoglycemia Last Admin: 04/03/18 04:22 Dose: 25 ml Enoxaparin Sodium (Lovenox) 40 mg SUB-Q QDAY@2200 [facility] Famotidine (Pepcid) 20 mg PO BID [facility] Last Admin: 04/02/18 23:47 Dose: 20 mg Fentanyl (Sublimaze) 25 mcg IV Q2H PRN PRN Reason: Pain Last Admin: 03/27/18 21:03 Dose: 25 mcg Fluoxetine HCl (Prozac) 10 mg PO QDAY [facility] Last Admin: 04/02/18 10:10 Dose: 10 mg Hydralazine HCl (Apresoline) 10 mg IV Q4H PRN PRN Reason: SBP > 160 Last Admin: 04/02/18 18:34 Dose: 10 mg Hydrophilic Ointment (Vaseline Lip Therapy) 1 applic TP Q2HR PRN PRN Reason: Dry Lips Sodium Chloride (Nacl 0.9% 1000 Ml) 1,000 mls @ 125 mls/hr IV DIRECT [facility] Last Admin: 04/02/18 20:35 Dose: 125 mls/hr Piperacillin Sod/Tazobactam Sod (Zosyn/Ns 4.5gm/100ml) 4.5 gm in 100 mls @ 200 mls/hr IV Q8H [facility]; Protocol Last Admin: 04/03/18 05:16 Dose: 200 mls/hr Vancomycin HCl 1,250 mg/ (Sodium Chloride) 262.5 mls @ 131.25 mls/hr IV Q12H [facility] Last Admin: 04/03/18 01:57 Dose: 131.25 mls/hr Insulin Human Regular (Humulin R) 0 units SUB-Q ACHS [facility]; Protocol Last Admin: 04/03/18 14:11 Dose: Not Given Magnesium Hydroxide (Milk Of Magnesia) 30 ml PO QDAY PRN PRN Reason: Constipation Multi-Ingred Cream/Lotion/Oil/Oint (Artificial Tears Ophth Oint) 1 applic OU Q4HR PRN PRN Reason: Dry Eye(s) Oxycodone/Acetaminophen (Percocet 5/325) 1 tab PO Q6H PRN PRN Reason: Pain, Moderate (4-6) Last Admin: 03/30/18 18:15 Dose: 1 tab Prazosin HCl (Minipress) 1 mg PO Q12HR [facility] Last Admin: 04/02/18 23:47 Dose: 1 mg Simple Syrup (Simple Syrup) 15 ml FEEDTUBE PRN PRN PRN Reason: Hypoglycemia Simple Syrup (Simple Syrup) 30 ml FEEDTUBE PRN PRN PRN Reason: Hypoglycemia Sodium Bicarbonate (Sodium Bicarbonate) 325 mg FEEDTUBE PRN PRN PRN Reason: For Clogged Feeding Tube Sodium Chloride (Nacl 0.9% 500 Ml) 1 ml IV DIRECT [facility] Sodium Chloride (Sodium Chloride Flush Syringe 10 Ml) 10 ml IV BID [facility] Last Admin: 04/02/18 23:41 Dose: 10 ml Sodium Chloride (Sodium Chloride Flush Syringe 10 Ml) 10 ml IV PRN PRN PRN Reason: LINE FLUSH Last Admin: 03/26/18 13:47 Dose: 10 ml Vancomycin HCl (Vancomycin Pharmacy To Dose) 1 each IV PKCONSULT [facility] Review of Systems All systems: negative Exam - Constitutional Vitals: Temp Pulse Resp BP Pulse Ox 98.2 F 79 20 164/72 94 04/03/18 08:00 04/03/18 08:26 04/03/18 08:26 04/03/18 08:26 04/03/18 09:57 General appearance: Present: no acute distress - EENT Eyes: Present: EOM intact ENT: hearing intact - Neck Neck: Present: supple - Respiratory Respiratory effort: normal - Extremities Extremities: no ischemia, normal temperature Extremity abnormal: edema (marked edema of all 4 upper and lower extremities. He has multiple large bulla on his left forearm. Some have ruptured and are leaking serous fluid. Mild erythema appreciated.) - Psychiatric Psychiatric: appropriate mood/affect, intact judgment & insight, cooperative - Neurologic Neurologic: no focal deficits Results - Labs CBC & Chem 7: 04/03/18 05:46 04/03/18 05:46 Labs: Abnormal lab results 03/29/18 03/29/18 04/02/18 Range/Units 22:26 22:36 22:01 RBC (3.65-5.03) M/mm3 Hgb (11.8-15.2) gm/dl Hct (35.5-45.6) % MCV (84-94) fl Lymphocytes % (Manual) (13.4-35.0) % Monocytes % (Manual) (0.0-7.3) % Lymphocytes # (Manual) (1.2-5.4) K/mm3 Monocytes # (Manual) (0.0-0.8) K/mm3 Chloride (98-107) mmol/L BUN (9-20) mg/dL Glucose (75-100) mg/dL POC Glucose < 40 L 172 H 206 H (70-105) Calcium (8.4-10.2) mg/dL 04/03/18 04/03/18 04/03/18 Range/Units 04:20 04:46 05:46 RBC 2.72 L (3.65-5.03) M/mm3 Hgb 7.6 L (11.8-15.2) gm/dl Hct 22.4 L (35.5-45.6) % MCV 83 L (84-94) fl Lymphocytes % (Manual) 13.0 L (13.4-35.0) % Monocytes % (Manual) 19.0 H (0.0-7.3) % Lymphocytes # (Manual) 0.9 L (1.2-5.4) K/mm3 Monocytes # (Manual) 1.3 H (0.0-0.8) K/mm3 Chloride (98-107) mmol/L BUN (9-20) mg/dL Glucose (75-100) mg/dL POC Glucose < 40 L 64 L (70-105) Calcium (8.4-10.2) mg/dL 06/06/18 06/06/18 06/06/18 Range/Units 05:46 05:57 07:04 RBC (3.65-5.03) M/mm3 Hgb (11.8-15.2) gm/dl Hct (35.5-45.6) % MCV (84-94) fl Lymphocytes % (Manual) (13.4-35.0) % Monocytes % (Manual) (0.0-7.3) % Lymphocytes # (Manual) (1.2-5.4) K/mm3 Monocytes # (Manual) (0.0-0.8) K/mm3 Chloride 110.7 H (98-107) mmol/L BUN 24 H (9-20) mg/dL Glucose 45 L (75-100) mg/dL POC Glucose < 40 L 44 L (70-105) Calcium 7.3 L (8.4-10.2) mg/dL 04/03/18 04/03/18 04/03/18 Range/Units 09:17 11:34 16:48 RBC (3.65-5.03) M/mm3 Hgb (11.8-15.2) gm/dl Hct (35.5-45.6) % MCV (84-94) fl Lymphocytes % (Manual) (13.4-35.0) % Monocytes % (Manual) (0.0-7.3) % Lymphocytes # (Manual) (1.2-5.4) K/mm3 Monocytes # (Manual) (0.0-0.8) K/mm3 Chloride (98-107) mmol/L BUN (9-20) mg/dL Glucose (75-100) mg/dL POC Glucose 107 H 196 H 251 H (70-105) Calcium (8.4-10.2) mg/dL Assessment and Plan This patient is a 52-year-old [place] male that was admitted with DKA. He was initially intubated to protect his airway and has since been extubated. During the course of his hospitalization he's had a significant drop in hemoglobin. He is also noted have hypoalbuminemia and hypoproteinemia. He appears to have anasarca. He had significant upper extremity swelling with blister formation to the skin. A venous duplex was ordered this revealed bilateral cephalic vein thrombosis ( no evidence of deep vein thrombosis). A vascular surgery consult was requested to further evaluate. He is currently on 40 mg of Lovenox daily, which he seems to be tolerating thus far. He will have to be monitored given his recent drop in hemoglobin. He was also started on intravenous antibiotics which seems reasonable given the skin lesions. We'll consult the ET nurse for upper extremity local wound care recommendations. Recommend treating his underlying anasarca, which I suspect may have contributed to the development of his upper extremity SVTs. We'll also check a lower extremity venous duplex given the bilateral extremity swelling. - Patient Problems (1) Superficial venous thrombosis of both upper extremities Current Visit: Yes Status: Acute (2) Anasarca Current Visit: Yes Status: Acute (3) Hypoalbuminemia Current Visit: Yes Status: Acute (4) Hypoproteinemia Current Visit: Yes Status: Acute (5) DKA (diabetic ketoacidoses) Current Visit: Yes Status: Acute Qualifiers: Diabetes mellitus type: type 1 Diabetes mellitus complication detail: with coma Qualified Code(s): E10.11 - Type 1 diabetes mellitus with ketoacidosis with coma (6) Acute renal failure Current Visit: Yes Status: Acute Qualifiers: Acute renal failure type: unspecified Qualified Code(s): N17.9 - Acute kidney failure, unspecified
--- NOTE | 2018-04-03 18:19 | Progress Note ---
Assessment and Plan Assessment and plan: --Bilateral upper extremity superficial venous thrombosis/cellulitis With edema, cellulitis and blisters, Elevate the limb Continue empiric antibiotics, wound care, vascular evaluation noted --Severe anemia; no external evidence of bleeding; Received 1 unit of PRBCs, mild improvement of hemoglobin No external bleeding, GI evaluated, recommended out patient workup, --Uncontrolled blood sugars; Moderate control; Accu-Chek sliding scale coverage and ADA diet, long-acting insulin Closely monitor blood sugars and adjust insulin dose as needed --DKA (diabetic ketoacidoses); resolved BG was 1026, with pH of 6.9, AG 49 at the time of admission now off insulin drip, on long-acting insulin twice a day dose Sliding scale coverage high-dose scale, A1c 8.9 On ADA diet --Acute respiratory failure; saturating well on nasal cannula oxygen s/p ventilator management and support, extubated 03/28 Continued nebs, evaluation for home oxygen at discharge --BELKIS (acute kidney injury)secondary to severe dehydration Due to ATN, trending down --Severe hypoalbuminemia; severe malnutrition Nutrition consults, supportive care --Metabolic acidosis due to DKA and renal failure Admission to improve continue supportive care --Hypertension,moderate control Continue current antihypertensives and when necessary medications --DVT prophylaxis Heparin subcutaneously 5000 units every 8 hours Plan of care reviewed with the patient and his nurse Closely monitor blood sugars Possible home health nurse for disease monitoring at discharge Possible discharge in 1-2 days if stable History Interval history: Sincerely and examined medical records reviewed No new events reported by the nursing staff Bilateral upper extremity swelling slightly improved Has multiple blisters on the left upper extremity Patient denies any chest pain or shortness of breath Vital signs reviewed Hospitalist Physical - Constitutional Vitals: Temp Pulse Resp BP Pulse Ox 98.2 F 79 20 164/72 94 04/03/18 08:00 04/03/18 08:26 04/03/18 08:26 04/03/18 08:26 04/03/18 09:57 General appearance: Present: no acute distress, well-nourished - EENT Eyes: Present: PERRL, EOM intact - Neck Neck: Present: supple, normal ROM - Respiratory Respiratory effort: normal Respiratory: bilateral: diminished, negative: rales, rhonchi, wheezing - Cardiovascular Rhythm: regular Heart Sounds: Present: S1 & S2 - Extremities Extremities: abnormal (left upper extremity swelling) Extremity abnormal: edema, other (left upper extremity multiple blisters noted) - Abdominal General gastrointestinal: soft, non-tender, non-distended, normal bowel sounds - Integumentary Integumentary: Present: clear, warm - Psychiatric Psychiatric: appropriate mood/affect, cooperative - Neurologic Neurologic: CNII-XII intact, moves all extremities Results - Labs CBC & Chem 7: 04/03/18 05:46 04/03/18 05:46 Labs: Laboratory Last Values WBC 7.1 K/mm3 (4.5-11.0) 04/03/18 05:46 RBC 2.72 M/mm3 (3.65-5.03) L 04/03/18 05:46 Hgb 7.6 gm/dl (11.8-15.2) L 04/03/18 05:46 Hct 22.4 % (35.5-45.6) L 04/03/18 05:46 MCV 83 fl (84-94) L 04/03/18 05:46 MCH 28 pg (28-32) 04/03/18 05:46 MCHC 34 % (32-34) 04/03/18 05:46 RDW 13.4 % (13.2-15.2) 04/03/18 05:46 Plt Count 319 K/mm3 (140-440) 04/03/18 05:46 Lymph % (Auto) 20.2 % (13.4-35.0) 03/30/18 06:39 [place] % (Auto) [employer] Engineer 04/03/18 05:46 Eos % (Auto) 1.7 % (0.0-4.3) 03/30/18 06:39 Baso % (Auto) 0.5 % (0.0-1.8) 03/30/18 06:39 Lymph # 1.3 K/mm3 (1.2-5.4) 03/30/18 06:39 [place] # 0.9 K/mm3 (0.0-0.8) H 03/30/18 06:39 Eos # 0.1 K/mm3 (0.0-0.4) 03/30/18 06:39 Baso # 0.0 K/mm3 (0.0-0.1) 03/30/18 06:39 Add Manual Diff Complete 04/03/18 05:46 Total Counted 100 04/03/18 05:46 Seg Neutrophils % 64.1 % (40.0-70.0) 03/30/18 06:39 Seg Neuts % (Manual) 64.0 % (40.0-70.0) 04/03/18 05:46 Band Neutrophils % 0 % 04/03/18 05:46 Lymphocytes % (Manual) 13.0 % (13.4-35.0) L 04/03/18 05:46 Reactive Lymphs % (Man) 0 % 04/03/18 05:46 Monocytes % (Manual) 19.0 % (0.0-7.3) H 04/03/18 05:46 Eosinophils % (Manual) 3.0 % (0.0-4.3) 04/03/18 05:46 Basophils % (Manual) 1.0 % (0.0-1.8) 04/03/18 05:46 Metamyelocytes % 0 % 04/03/18 05:46 Myelocytes % 0 % 04/03/18 05:46 Promyelocytes % 0 % 04/03/18 05:46 Blast Cells % 0 % 04/03/18 05:46 Nucleated RBC % Not Reportable 04/03/18 05:46 Seg Neutrophils # 4.2 K/mm3 (1.8-7.7) 03/30/18 06:39 Seg Neutrophils # Man 4.5 K/mm3 (1.8-7.7) 04/03/18 05:46 Band Neutrophils # 0.0 K/mm3 04/03/18 05:46 Lymphocytes # (Manual) 0.9 K/mm3 (1.2-5.4) L 04/03/18 05:46 Abs React Lymphs (Man) 0.0 K/mm3 04/03/18 05:46 Monocytes # (Manual) 1.3 K/mm3 (0.0-0.8) H 04/03/18 05:46 Eosinophils # (Manual) 0.2 K/mm3 (0.0-0.4) 04/03/18 05:46 Basophils # (Manual) 0.1 K/mm3 (0.0-0.1) 04/03/18 05:46 Metamyelocytes # 0.0 K/mm3 04/03/18 05:46 Myelocytes # 0.0 K/mm3 04/03/18 05:46 Promyelocytes # 0.0 K/mm3 04/03/18 05:46 Blast Cells # 0.0 K/mm3 04/03/18 05:46 WBC Morphology Not Reportable 04/03/18 05:46 Hypersegmented Neuts Not Reportable 04/03/18 05:46 Hyposegmented Neuts Not Reportable 04/03/18 05:46 Hypogranular Neuts Not Reportable 04/03/18 05:46 Smudge Cells Not Reportable 04/03/18 05:46 Toxic Granulation Not Reportable 04/03/18 05:46 Toxic Vacuolation Not Reportable 04/03/18 05:46 Dohle Bodies Not Reportable 04/03/18 05:46 Pelger-Huet Anomaly Not Reportable 04/03/18 05:46 Loi Rods Not Reportable 04/03/18 05:46 Platelet Estimate Consistent w auto 04/03/18 05:46 Clumped Platelets Not Reportable 04/03/18 05:46 Plt Clumps, EDTA Not Reportable 04/03/18 05:46 Large Platelets Not Reportable 04/03/18 05:46 Giant Platelets Not Reportable 04/03/18 05:46 Platelet Satelliting Not Reportable 04/03/18 05:46 Plt Morphology Comment Not Reportable 04/03/18 05:46 RBC Morphology Normal 04/03/18 05:46 Dimorphic RBCs Not Reportable 04/03/18 05:46 Polychromasia Not Reportable 04/03/18 05:46 Hypochromasia Not Reportable 04/03/18 05:46 Poikilocytosis Not Reportable 04/03/18 05:46 Anisocytosis Not Reportable 04/03/18 05:46 Microcytosis Not Reportable 04/03/18 05:46 Macrocytosis Not Reportable 04/03/18 05:46 Spherocytes Not Reportable 04/03/18 05:46 Pappenheimer Bodies Not Reportable 04/03/18 05:46 Sickle Cells Not Reportable 04/03/18 05:46 Target Cells Not Reportable 04/03/18 05:46 Tear Drop Cells Not Reportable 04/03/18 05:46 Ovalocytes Not Reportable 04/03/18 05:46 Helmet Cells Not Reportable 04/03/18 05:46 Joe-Thurmond Bodies Not Reportable 04/03/18 05:46 [place] Rings Not Reportable 04/03/18 05:46 [place] Cells Not Reportable 04/03/18 05:46 Bite Cells Not Reportable 04/03/18 05:46 Crenated Cell Not Reportable 04/03/18 05:46 Elliptocytes Not Reportable 04/03/18 05:46 Acanthocytes (Spur) Not Reportable 04/03/18 05:46 Rouleaux Not Reportable 04/03/18 05:46 Hemoglobin C Crystals Not Reportable 04/03/18 05:46 Schistocytes Not Reportable 04/03/18 05:46 Malaria parasites Not Reportable 04/03/18 05:46 Lev Bodies Not Reportable 04/03/18 05:46 Hem Pathologist Commnt No 04/03/18 05:46 POC ABG pH 7.405 (7.35-7.45) 03/28/18 03:49 POC ABG pCO2 38.6 (35-45) 03/28/18 03:49 POC ABG pO2 102 (80-105) 03/28/18 03:49 POC ABG HCO3 24.2 03/28/18 03:49 POC ABG Total CO2 25 03/28/18 03:49 POC ABG O2 Sat 98 03/28/18 03:49 POC ABG Base Excess 0 03/28/18 03:49 VBG pH 7.000 (7.320-7.420) L* 03/25/18 14:41 FiO2 25 % 03/28/18 03:49 Sodium 144 mmol/L (137-145) 04/03/18 05:46 Potassium 3.6 mmol/L (3.6-5.0) 04/03/18 05:46 Chloride 110.7 mmol/L (98-107) H 04/03/18 05:46 Carbon Dioxide 22 mmol/L (22-30) 04/03/18 05:46 Anion Gap 15 mmol/L 04/03/18 05:46 BUN 24 mg/dL (9-20) H 04/03/18 05:46 Creatinine 1.5 mg/dL (0.8-1.5) 04/03/18 05:46 Estimated GFR 59 ml/min 04/03/18 05:46 BUN/Creatinine Ratio 16 % 04/03/18 05:46 Glucose 45 mg/dL (75-100) L 04/03/18 05:46 POC Glucose 251 (70-105) H 04/03/18 16:48 Hemoglobin A1c 8.9 % (4-6) H 03/25/18 18:55 Lactic Acid 1.80 mmol/L (0.7-2.0) 03/26/18 04:25 Calcium 7.3 mg/dL (8.4-10.2) L 04/03/18 05:46 Phosphorus 3.70 mg/dL (2.5-4.5) 04/03/18 05:46 Magnesium 2.00 mg/dL (1.7-2.3) 04/01/18 05:51 Iron 54 ug/dL (49-181) 03/28/18 04:35 TIBC 115 mcg/dL (250-450) L 03/28/18 04:35 Transferrin 94 mg/dl (180-329) L 03/28/18 04:35 Ferritin 412.1 ng/mL (13.0-400.0) H 03/28/18 04:35 Total Bilirubin 0.20 mg/dL (0.1-1.2) 03/27/18 03:35 Direct Bilirubin < 0.2 mg/dL (0-0.2) 03/25/18 14:08 Indirect Bilirubin 0.1 mg/dL 03/25/18 14:08 AST 44 units/L (5-40) H 03/27/18 03:35 ALT 28 units/L (7-56) 03/27/18 03:35 Alkaline Phosphatase 128 units/L (35-129) 03/27/18 03:35 Total Creatine Kinase 226 units/L (55-170) H 03/25/18 18:09 CK-MB (CK-2) 3.7 ng/mL (0.0-4.0) 03/25/18 18:09 CK-MB (CK-2) Rel Index 1.6 (0-4) 03/25/18 18:09 Troponin T 0.033 ng/mL (0.00-0.029) H 03/25/18 18:09 Total Protein 5.1 g/dL (6.3-8.2) L D 03/27/18 03:35 Albumin 2.1 g/dL (3.9-5) L 03/27/18 03:35 Albumin/Globulin Ratio 0.7 % 03/27/18 03:35 Triglycerides 185 mg/dL (2-149) H 03/25/18 18:09 Cholesterol 215 mg/dL (50-199) H 03/25/18 18:09 LDL Cholesterol Direct 144 mg/dL (50-130) H 03/25/18 18:09 HDL Cholesterol 48 mg/dL (40-59) 03/25/18 18:09 Cholesterol/HDL Ratio 4.47 % 03/25/18 18:09 Urine Color Yellow (Yellow) 03/25/18 14:00 Urine Turbidity Clear (Clear) 03/25/18 14:00 Urine pH 5.0 (5.0-7.0) 03/25/18 14:00 Ur Specific [place] 1.021 (1.003-1.030) 03/25/18 14:00 Urine Protein 100 mg/dl mg/dL (Negative) 03/25/18 14:00 Urine Glucose (UA) >=500 mg/dL (Negative) 03/25/18 14:00 Urine Ketones 80 mg/dL (Negative) 03/25/18 14:00 Urine Blood Sm (Negative) 03/25/18 14:00 Urine Nitrite Neg (Negative) 03/25/18 14:00 Urine Bilirubin Neg (Negative) 03/25/18 14:00 Urine Urobilinogen < 2.0 mg/dL (<2.0) 03/25/18 14:00 Ur Leukocyte Esterase Neg (Negative) 03/25/18 14:00 Urine WBC (Auto) 1.0 /HPF (0.0-6.0) 03/25/18 14:00 Urine RBC (Auto) 1.0 /HPF (0.0-6.0) 03/25/18 14:00 Urine Bacteria (Auto) 1+ /HPF (Negative) 03/25/18 14:00 Urine Mucus Few /HPF 03/25/18 14:00 Urine Opiates Screen Presumptive negative 03/25/18 14:19 Urine Methadone Screen Presumptive negative 03/25/18 14:19 Ur Barbiturates Screen Presumptive negative 03/25/18 14:19 Ur Phencyclidine Scrn Presumptive negative 03/25/18 14:19 Ur Amphetamines Screen Presumptive negative 03/25/18 14:19 U Benzodiazepines Scrn Presumptive negative 03/25/18 14:19 Urine Cocaine Screen Presumptive negative 03/25/18 14:19 U Marijuana (THC) Screen Presumptive negative 03/25/18 14:19 Drugs of Abuse Note Disclamer 03/25/18 14:19 Blood Type O POSITIVE 04/01/18 11:13 Antibody Screen Negative 04/01/18 11:13 Crossmatch See Detail 04/01/18 11:13
[2018-04-03] MEDS: LOVENOX SUB-Q SCH (22:45)
[2018-04-03] MEDS: ALBURX 25% (ALBUMIN) IV SCH (22:45)
[2018-04-04] MEDS: VANCOMYCIN 1,250 MG in NACL 0.9% 250ML 250 ML IV SCH ×2 (02:35→16:00)
[2018-04-04] MEDS: ALBURX 25% (ALBUMIN) IV SCH (04:30)
[2018-04-04] MEDS: ZOSYN/NS 4.5GM/100ML 4.5 GM/100 ML VIAL IV SCH ×3 (05:27→21:48)
[2018-04-04 06:35] LABS: Hematocrit 20.8 % (35.5-45.6); Hemoglobin 6.9 gm/dl (11.8-15.2); Mean Corpuscular HGB Conc 33 % (32-34); Mean Corpuscular Hemoglobin 28 pg (28-32); Mean Corpuscular Volume 83 fl (84-94); Platelet Count 330 K/mm3 (140-440); Red Blood Count 2.49 M/mm3 (3.65-5.03); Red Cell Distribution Width 13.2 % (13.2-15.2)
[2018-04-04 06:43] LABS: Calcium 7.2 mg/dL (8.4-10.2)
[2018-04-04] MEDS: APRESOLINE IV PRN (06:59)
[2018-04-04] MEDS: HumuLIN R SUB-Q SCH ×5 (07:00→22:48)
[2018-04-04 07:26] LABS: Band Neutrophils # (Manual) 0.1 K/mm3; Basophils % (Manual) 0 % (0.0-1.8); Total Cells Counted 100
[2018-04-04 07:27] LABS: Anisocytosis 1+; Hypochromasia Few
[2018-04-04] MEDS: PROzac PO SCH (11:00)
[2018-04-04] MEDS: PEPCID PO SCH ×2 (11:00→21:48)
[2018-04-04] MEDS: SODIUM CHLORIDE FLUSH SYRINGE 10 ML IV SCH ×3 (11:00→22:46)
[2018-04-04] MEDS: BABY ASPIRIN PO SCH (12:53)
[2018-04-04] MEDS: COREG PO SCH ×2 (12:53→21:49)
[2018-04-04] MEDS: MINIPRESS PO SCH ×2 (12:53→21:49)
[2018-04-04] MEDS: SODIUM CHLORIDE FLUSH SYRINGE 10 ML IV PRN (12:54)
--- NOTE | 2018-04-04 14:32 | Progress Note ---
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: -Cr still trending up. s/p albumin yesterday. Will keep AIN from Antibiotics in mind. Check Urine studies. -Renally dose meds -Strict intake and output -Obtain daily weight Normocytic anemia: -Hg low, transfuse PRN primary Cellulitus: -On Abx -Per primary Metabolic acidosis: -Mild, monitor Acute Respiratory Failure: -extubated -Pulmonology on board Diabetes Mellitus Type 2: -Per primary Essential Hypertension: -Titrate BP meds PRN to keep SBP <130 -Add hydralazine 25 mg TID to regimen as BP high. Glen Dimas MD [phone] Subjective Date of service: 04/04/18 Principal diagnosis: Acute hypoxic respiratory failure, DKA, BELKIS, Acute encephalopathy Interval history: Denies CP, SHOB. Objective - Exam Narrative Exam: General appearance: well-developed, well-nourished EENT: ATNC, PERRL, mucous membranes moist Neck: no JVD, no carotid bruit Respiratory: Present: Clear to Ascultation. Absent: Rales, Ronchi Cardiology: regular, S1S2 Gastrointestinal: normoactive bowel sounds, no tenderness, no distended Integumentary: no rash, warm and dry Neurologic: no focal deficit, no asterixis Musculoskeletal: 2+ BLE edema Psychiatric: cooperative - Vital Signs Vital signs: Vital Signs - 12hr 04/04/18 04/04/18 04/04/18 04:41 06:59 08:11 Temperature 98.7 F 98.4 F Pulse Rate 83 83 95 H Respiratory 18 24 Rate Blood Pressure 175/94 175/94 171/74 O2 Sat by Pulse 94 96 Oximetry 04/04/18 11:37 Temperature 99.4 F Pulse Rate 92 H Respiratory 18 Rate Blood Pressure 154/74 O2 Sat by Pulse 96 Oximetry - Lab 04/04/18 06:05 04/04/18 06:05 Most recent lab results Calcium 7.2 mg/dL (8.4-10.2) L 04/04/18 06:05 Phosphorus 3.70 mg/dL (2.5-4.5) 04/03/18 05:46 Magnesium 2.00 mg/dL (1.7-2.3) 04/04/18 06:05
--- NOTE | 2018-04-04 15:00 | Progress Note ---
Assessment and Plan Patient resting on room air . No acute respiratory distress.O2 saturation 96%. Patient running very low grade temp.Denies cough,chest pain or shortness of breath. No leukocytosis. - Patient Problems (1) Acute respiratory failure Current Visit: Yes Status: Acute Qualifiers: Respiratory failure complication: hypoxia Qualified Code(s): J96.01 - Acute respiratory failure with hypoxia Plan to address problem: Improved. No complaint of shortness of breath.O2 saturation 96% on room air. (2) DKA (diabetic ketoacidoses) Current Visit: Yes Status: Acute Qualifiers: Diabetes mellitus type: type 1 Diabetes mellitus complication detail: with coma Qualified Code(s): E10.11 - Type 1 diabetes mellitus with ketoacidosis with coma Plan to address problem: Improving. Management as per primary care. (3) BELKIS (acute kidney injury) Current Visit: Yes Status: Acute (4) Pulmonary infiltrate in left lung on chest x-ray Current Visit: Yes Status: Acute Plan to address problem: Patient is on zosyn. Subjective Date of service: 04/04/18 Principal diagnosis: Acute hypoxic respiratory failure, DKA, BELKIS, Acute encephalopathy Interval history: Patient resting on room air . No acute respiratory distress.O2 saturation 96% .Patient running very low grade temp.Denies cough,chest pain or shortness of breath. No leukocytosis. Objective Vital Signs - 12hr 04/04/18 04/04/18 04/04/18 04:41 06:59 08:11 Temperature 98.7 F 98.4 F Pulse Rate 83 83 95 H Respiratory 18 24 Rate Blood Pressure 175/94 175/94 171/74 O2 Sat by Pulse 94 96 Oximetry 04/04/18 11:37 Temperature 99.4 F Pulse Rate 92 H Respiratory 18 Rate Blood Pressure 154/74 O2 Sat by Pulse 96 Oximetry Constitutional: no acute distress, alert, other (middle aged AAM, normocephalic and atraumatic) Eyes: non-icteric ENT: oropharynx moist, other (mallampatti 2) Neck: supple, no lymphadenopathy, no JVD, other (no thyromegaly) Effort: normal Ascultation: Bilateral: diminished breath sounds Percussion: Bilateral: not dull Cardiovascular: regular rate and rhythm, other (No R/M) Gastrointestinal: normoactive bowel sounds, soft, non-tender, non-distended, other ( No HSM) Integumentary: normal Extremities: no cyanosis, pulses normal, no ischemia or petechiae, edema (to hands) Neurologic: normal mental status, non-focal exam (grossly), pupils equal and round, CN II-XII normal, motor strength normal and Psychiatric: mood appropriate, affect normal CBC and BMP: 04/04/18 06:05 04/04/18 06:05 ABG, PT/INR, D-dimer: ABG POC ABG pH 7.405 (7.35-7.45) 03/28/18 03:49 POC ABG pCO2 38.6 (35-45) 03/28/18 03:49 POC ABG pO2 102 (80-105) 03/28/18 03:49 POC ABG HCO3 24.2 03/28/18 03:49 POC ABG Total CO2 25 03/28/18 03:49 POC ABG O2 Sat 98 03/28/18 03:49 Abnormal lab findings: Abnormal Labs 03/25/18 03/25/18 03/25/18 13:48 14:00 14:00 WBC 15.3 H RBC Hgb 10.5 L Hct MCV 95 H MCH 27 L MCHC 28 L RDW Plt Count Lymph % (Auto) 8.5 L [place] % (Auto) Lymph # [place] # Seg Neutrophils % 86.4 H Seg Neuts % (Manual) Lymphocytes % (Manual) Monocytes % (Manual) Seg Neutrophils # 13.2 H Lymphocytes # (Manual) Monocytes # (Manual) POC ABG pH POC ABG pCO2 POC ABG pO2 VBG pH Sodium 132 L Potassium 8.1 H* Chloride 87.8 L Carbon Dioxide 3 L* BUN 43 H Creatinine 2.6 H Glucose 1026 H* POC Glucose > 500 H Hemoglobin A1c Lactic Acid Calcium Phosphorus TIBC Transferrin Ferritin AST Total Creatine Kinase Troponin T Total Protein Albumin Triglycerides Cholesterol LDL Cholesterol Direct Crossmatch 03/25/18 03/25/18 03/25/18 14:00 14:08 14:29 WBC RBC Hgb Hct MCV MCH MCHC RDW Plt Count Lymph % (Auto) [place] % (Auto) Lymph # [place] # Seg Neutrophils % Seg Neuts % (Manual) Lymphocytes % (Manual) Monocytes % (Manual) Seg Neutrophils # Lymphocytes # (Manual) Monocytes # (Manual) POC ABG pH 6.952 L POC ABG pCO2 25.8 L POC ABG pO2 559 H VBG pH Sodium Potassium Chloride Carbon Dioxide BUN Creatinine Glucose POC Glucose Hemoglobin A1c Lactic Acid 10.10 H* Calcium Phosphorus 8.70 H TIBC Transferrin Ferritin AST Total Creatine Kinase Troponin T Total Protein Albumin 2.6 L Triglycerides Cholesterol LDL Cholesterol Direct Crossmatch 03/25/18 03/25/18 03/25/18 14:41 15:40 15:40 WBC RBC Hgb Hct MCV MCH MCHC RDW Plt Count Lymph % (Auto) [place] % (Auto) Lymph # [place] # Seg Neutrophils % Seg Neuts % (Manual) Lymphocytes % (Manual) Monocytes % (Manual) Seg Neutrophils # Lymphocytes # (Manual) Monocytes # (Manual) POC ABG pH POC ABG pCO2 POC ABG pO2 VBG pH 7.000 L* Sodium Potassium 6.7 H* Chloride 97.5 L Carbon Dioxide 5 L* BUN 43 H Creatinine 2.5 H Glucose 893 H* POC Glucose Hemoglobin A1c Lactic Acid Calcium 7.5 L Phosphorus 9.10 H TIBC Transferrin Ferritin AST Total Creatine Kinase Troponin T Total Protein Albumin Triglycerides Cholesterol LDL Cholesterol Direct Crossmatch 03/25/18 03/25/18 03/25/18 18:09 18:12 18:55 WBC RBC Hgb Hct MCV MCH MCHC RDW Plt Count Lymph % (Auto) [place] % (Auto) Lymph # [place] # Seg Neutrophils % Seg Neuts % (Manual) Lymphocytes % (Manual) Monocytes % (Manual) Seg Neutrophils # Lymphocytes # (Manual) Monocytes # (Manual) POC ABG pH POC ABG pCO2 POC ABG pO2 VBG pH Sodium 133 L Potassium 5.7 H Chloride 93.1 L Carbon Dioxide 10 L BUN 43 H Creatinine 2.5 H Glucose 786 H* POC Glucose Hemoglobin A1c 8.9 H Lactic Acid Calcium 7.8 L Phosphorus TIBC Transferrin Ferritin AST Total Creatine Kinase 226 H Troponin T 0.033 H Total Protein Albumin Triglycerides 185 H Cholesterol 215 H LDL Cholesterol Direct 144 H Crossmatch 03/25/18 03/25/18 03/25/18 18:55 21:00 21:03 WBC RBC Hgb Hct MCV MCH MCHC RDW Plt Count Lymph % (Auto) [place] % (Auto) Lymph # [place] # Seg Neutrophils % Seg Neuts % (Manual) Lymphocytes % (Manual) Monocytes % (Manual) Seg Neutrophils # Lymphocytes # (Manual) Monocytes # (Manual) POC ABG pH POC ABG pCO2 POC ABG pO2 VBG pH Sodium 136 L Potassium 6.7 H* Chloride Carbon Dioxide 7 L* BUN 45 H Creatinine 2.6 H Glucose 879 H* POC Glucose > 500 H Hemoglobin A1c Lactic Acid Calcium 7.8 L Phosphorus 9.20 H TIBC Transferrin Ferritin AST Total Creatine Kinase Troponin T Total Protein Albumin Triglycerides Cholesterol LDL Cholesterol Direct Crossmatch 03/25/18 03/25/18 03/25/18 21:39 22:06 23:20 WBC RBC Hgb Hct MCV MCH MCHC RDW Plt Count Lymph % (Auto) [place] % (Auto) Lymph # [place] # Seg Neutrophils % Seg Neuts % (Manual) Lymphocytes % (Manual) Monocytes % (Manual) Seg Neutrophils # Lymphocytes # (Manual) Monocytes # (Manual) POC ABG pH 7.272 L POC ABG pCO2 14.2 L POC ABG pO2 263 H VBG pH Sodium Potassium Chloride Carbon Dioxide 7 L* BUN 47 H Creatinine 2.9 H Glucose 702 H* POC Glucose > 500 H Hemoglobin A1c Lactic Acid Calcium 7.6 L Phosphorus TIBC Transferrin Ferritin AST Total Creatine Kinase Troponin T Total Protein Albumin Triglycerides Cholesterol LDL Cholesterol Direct Crossmatch 03/25/18 03/26/18 03/26/18 23:20 00:17 01:08 WBC RBC Hgb Hct MCV MCH MCHC RDW Plt Count Lymph % (Auto) [place] % (Auto) Lymph # [place] # Seg Neutrophils % Seg Neuts % (Manual) Lymphocytes % (Manual) Monocytes % (Manual) Seg Neutrophils # Lymphocytes # (Manual) Monocytes # (Manual) POC ABG pH POC ABG pCO2 POC ABG pO2 VBG pH Sodium Potassium Chloride Carbon Dioxide BUN Creatinine Glucose POC Glucose > 500 H 447 H 484 H Hemoglobin A1c Lactic Acid Calcium Phosphorus TIBC Transferrin Ferritin AST Total Creatine Kinase Troponin T Total Protein Albumin Triglycerides Cholesterol LDL Cholesterol Direct Crossmatch 03/26/18 03/26/18 03/26/18 02:31 03:07 04:09 WBC RBC Hgb Hct MCV MCH MCHC RDW Plt Count Lymph % (Auto) [place] % (Auto) Lymph # [place] # Seg Neutrophils % Seg Neuts % (Manual) Lymphocytes % (Manual) Monocytes % (Manual) Seg Neutrophils # Lymphocytes # (Manual) Monocytes # (Manual) POC ABG pH POC ABG pCO2 POC ABG pO2 VBG pH Sodium Potassium Chloride Carbon Dioxide BUN Creatinine Glucose POC Glucose > 500 H 467 H 361 H Hemoglobin A1c Lactic Acid Calcium Phosphorus TIBC Transferrin Ferritin AST Total Creatine Kinase Troponin T Total Protein Albumin Triglycerides Cholesterol LDL Cholesterol Direct Crossmatch 03/26/18 03/26/18 03/26/18 04:25 05:24 06:19 WBC RBC Hgb Hct MCV MCH MCHC RDW Plt Count Lymph % (Auto) [place] % (Auto) Lymph # [place] # Seg Neutrophils % Seg Neuts % (Manual) Lymphocytes % (Manual) Monocytes % (Manual) Seg Neutrophils # Lymphocytes # (Manual) Monocytes # (Manual) POC ABG pH POC ABG pCO2 POC ABG pO2 VBG pH Sodium 150 H D Potassium 3.4 L D Chloride 118.3 H Carbon Dioxide 16 L D BUN 45 H Creatinine 2.7 H Glucose 278 H POC Glucose 306 H 188 H Hemoglobin A1c Lactic Acid Calcium 7.7 L Phosphorus TIBC Transferrin Ferritin AST Total Creatine Kinase Troponin T Total Protein Albumin Triglycerides Cholesterol LDL Cholesterol Direct Crossmatch 03/26/18 03/26/18 03/26/18 07:09 08:20 09:12 WBC RBC Hgb Hct MCV MCH MCHC RDW Plt Count Lymph % (Auto) [place] % (Auto) Lymph # [place] # Seg Neutrophils % Seg Neuts % (Manual) Lymphocytes % (Manual) Monocytes % (Manual) Seg Neutrophils # Lymphocytes # (Manual) Monocytes # (Manual) POC ABG pH 7.530 H POC ABG pCO2 22.0 L POC ABG pO2 147 H VBG pH Sodium Potassium Chloride Carbon Dioxide BUN Creatinine Glucose POC Glucose 148 H 170 H Hemoglobin A1c Lactic Acid Calcium Phosphorus TIBC Transferrin Ferritin AST Total Creatine Kinase Troponin T Total Protein Albumin Triglycerides Cholesterol LDL Cholesterol Direct Crossmatch 03/26/18 03/26/18 03/26/18 09:15 10:30 10:46 WBC RBC Hgb Hct MCV MCH MCHC RDW Plt Count Lymph % (Auto) [place] % (Auto) Lymph # [place] # Seg Neutrophils % Seg Neuts % (Manual) Lymphocytes % (Manual) Monocytes % (Manual) Seg Neutrophils # Lymphocytes # (Manual) Monocytes # (Manual) POC ABG pH POC ABG pCO2 POC ABG pO2 VBG pH Sodium 152 H Potassium 3.1 L Chloride 121.4 H Carbon Dioxide BUN 43 H Creatinine 2.6 H Glucose 105 H POC Glucose 177 H 125 H Hemoglobin A1c Lactic Acid Calcium 7.5 L Phosphorus TIBC Transferrin Ferritin AST Total Creatine Kinase Troponin T Total Protein Albumin Triglycerides Cholesterol LDL Cholesterol Direct Crossmatch 03/26/18 03/26/18 03/26/18 14:57 15:35 18:12 WBC RBC Hgb Hct MCV MCH MCHC RDW Plt Count Lymph % (Auto) [place] % (Auto) Lymph # [place] # Seg Neutrophils % Seg Neuts % (Manual) Lymphocytes % (Manual) Monocytes % (Manual) Seg Neutrophils # Lymphocytes # (Manual) Monocytes # (Manual) POC ABG pH POC ABG pCO2 POC ABG pO2 VBG pH Sodium 148 H Potassium Chloride 117.5 H Carbon Dioxide 18 L BUN 43 H Creatinine 2.5 H Glucose 135 H POC Glucose 159 H 245 H Hemoglobin A1c Lactic Acid Calcium 7.3 L Phosphorus TIBC Transferrin Ferritin AST Total Creatine Kinase Troponin T Total Protein Albumin Triglycerides Cholesterol LDL Cholesterol Direct Crossmatch 03/26/18 03/26/18 03/27/18 19:27 21:42 02:03 WBC RBC Hgb Hct MCV MCH MCHC RDW Plt Count Lymph % (Auto) [place] % (Auto) Lymph # [place] # Seg Neutrophils % Seg Neuts % (Manual) Lymphocytes % (Manual) Monocytes % (Manual) Seg Neutrophils # Lymphocytes # (Manual) Monocytes # (Manual) POC ABG pH POC ABG pCO2 POC ABG pO2 VBG pH Sodium Potassium Chloride 115.0 H Carbon Dioxide 20 L BUN 42 H Creatinine 2.4 H Glucose 221 H POC Glucose 261 H 254 H Hemoglobin A1c Lactic Acid Calcium 7.1 L Phosphorus TIBC Transferrin Ferritin AST Total Creatine Kinase Troponin T Total Protein Albumin Triglycerides Cholesterol LDL Cholesterol Direct Crossmatch 03/27/18 03/27/18 03/27/18 03:35 03:35 05:20 WBC 12.3 H RBC 3.05 L Hgb 8.3 L Hct 25.3 L D MCV 83 L MCH 27 L MCHC RDW Plt Count Lymph % (Auto) [place] % (Auto) 8.6 H Lymph # [place] # 1.1 H Seg Neutrophils % 76.5 H Seg Neuts % (Manual) Lymphocytes % (Manual) Monocytes % (Manual) Seg Neutrophils # 9.4 H Lymphocytes # (Manual) Monocytes # (Manual) POC ABG pH POC ABG pCO2 POC ABG pO2 VBG pH Sodium Potassium Chloride 112.6 H Carbon Dioxide BUN 36 H Creatinine 2.1 H Glucose 244 H POC Glucose 263 H Hemoglobin A1c Lactic Acid Calcium 7.1 L Phosphorus TIBC Transferrin Ferritin AST 44 H Total Creatine Kinase Troponin T Total Protein 5.1 L D Albumin 2.1 L Triglycerides Cholesterol LDL Cholesterol Direct Crossmatch 03/27/18 03/27/18 03/27/18 08:22 13:00 14:06 WBC RBC Hgb Hct MCV MCH MCHC RDW Plt Count Lymph % (Auto) [place] % (Auto) Lymph # [place] # Seg Neutrophils % Seg Neuts % (Manual) Lymphocytes % (Manual) Monocytes % (Manual) Seg Neutrophils # Lymphocytes # (Manual) Monocytes # (Manual) POC ABG pH POC ABG pCO2 34.7 L POC ABG pO2 VBG pH Sodium Potassium Chloride Carbon Dioxide BUN Creatinine Glucose POC Glucose 306 H 233 H Hemoglobin A1c Lactic Acid Calcium Phosphorus TIBC Transferrin Ferritin AST Total Creatine Kinase Troponin T Total Protein Albumin Triglycerides Cholesterol LDL Cholesterol Direct Crossmatch 03/27/18 03/27/18 03/27/18 16:15 18:11 21:44 WBC RBC Hgb Hct MCV MCH MCHC RDW Plt Count Lymph % (Auto) [place] % (Auto) Lymph # [place] # Seg Neutrophils % Seg Neuts % (Manual) Lymphocytes % (Manual) Monocytes % (Manual) Seg Neutrophils # Lymphocytes # (Manual) Monocytes # (Manual) POC ABG pH POC ABG pCO2 POC ABG pO2 VBG pH Sodium Potassium Chloride Carbon Dioxide BUN Creatinine Glucose POC Glucose 243 H 226 H 224 H Hemoglobin A1c Lactic Acid Calcium Phosphorus TIBC Transferrin Ferritin AST Total Creatine Kinase Troponin T Total Protein Albumin Triglycerides Cholesterol LDL Cholesterol Direct Crossmatch 03/28/18 03/28/18 03/28/18 02:07 04:35 04:35 WBC RBC Hgb Hct MCV MCH MCHC RDW Plt Count Lymph % (Auto) [place] % (Auto) Lymph # [place] # Seg Neutrophils % Seg Neuts % (Manual) Lymphocytes % (Manual) Monocytes % (Manual) Seg Neutrophils # Lymphocytes # (Manual) Monocytes # (Manual) POC ABG pH POC ABG pCO2 POC ABG pO2 VBG pH Sodium Potassium Chloride Carbon Dioxide BUN Creatinine Glucose POC Glucose 220 H Hemoglobin A1c Lactic Acid Calcium Phosphorus TIBC 115 L Transferrin 94 L Ferritin 412.1 H AST Total Creatine Kinase Troponin T Total Protein Albumin Triglycerides Cholesterol LDL Cholesterol Direct Crossmatch 03/28/18 03/28/18 03/28/18 05:27 09:52 10:59 WBC RBC 3.22 L Hgb 9.1 L Hct 26.8 L MCV 83 L MCH MCHC RDW Plt Count 134 L Lymph % (Auto) [place] % (Auto) Lymph # [place] # Seg Neutrophils % Seg Neuts % (Manual) Lymphocytes % (Manual) Monocytes % (Manual) Seg Neutrophils # Lymphocytes # (Manual) Monocytes # (Manual) POC ABG pH POC ABG pCO2 POC ABG pO2 VBG pH Sodium Potassium Chloride Carbon Dioxide BUN Creatinine Glucose POC Glucose 280 H 332 H Hemoglobin A1c Lactic Acid Calcium Phosphorus TIBC Transferrin Ferritin AST Total Creatine Kinase Troponin T Total Protein Albumin Triglycerides Cholesterol LDL Cholesterol Direct Crossmatch 03/28/18 03/28/18 03/28/18 10:59 14:39 17:47 WBC RBC Hgb Hct MCV MCH MCHC RDW Plt Count Lymph % (Auto) [place] % (Auto) Lymph # [place] # Seg Neutrophils % Seg Neuts % (Manual) Lymphocytes % (Manual) Monocytes % (Manual) Seg Neutrophils # Lymphocytes # (Manual) Monocytes # (Manual) POC ABG pH POC ABG pCO2 POC ABG pO2 VBG pH Sodium 136 L Potassium Chloride Carbon Dioxide BUN 29 H Creatinine Glucose 310 H POC Glucose 250 H 132 H Hemoglobin A1c Lactic Acid Calcium 7.0 L Phosphorus TIBC Transferrin Ferritin AST Total Creatine Kinase Troponin T Total Protein Albumin Triglycerides Cholesterol LDL Cholesterol Direct Crossmatch 03/29/18 03/29/18 03/29/18 01:49 04:23 05:45 WBC RBC 3.13 L Hgb 8.8 L Hct 25.8 L MCV 82 L MCH MCHC RDW 12.7 L Plt Count 132 L Lymph % (Auto) 10.8 L [place] % (Auto) 9.1 H Lymph # 1.0 L [place] # Seg Neutrophils % 79.1 H Seg Neuts % (Manual) Lymphocytes % (Manual) Monocytes % (Manual) Seg Neutrophils # Lymphocytes # (Manual) Monocytes # (Manual) POC ABG pH POC ABG pCO2 POC ABG pO2 VBG pH Sodium 134 L Potassium Chloride Carbon Dioxide BUN 27 H Creatinine Glucose 172 H POC Glucose 122 H Hemoglobin A1c Lactic Acid Calcium 7.1 L Phosphorus TIBC Transferrin Ferritin AST Total Creatine Kinase Troponin T Total Protein Albumin Triglycerides Cholesterol LDL Cholesterol Direct Crossmatch 03/29/18 03/29/18 03/29/18 05:57 09:19 13:09 WBC RBC Hgb Hct MCV MCH MCHC RDW Plt Count Lymph % (Auto) [place] % (Auto) Lymph # [place] # Seg Neutrophils % Seg Neuts % (Manual) Lymphocytes % (Manual) Monocytes % (Manual) Seg Neutrophils # Lymphocytes # (Manual) Monocytes # (Manual) POC ABG pH POC ABG pCO2 POC ABG pO2 VBG pH Sodium Potassium Chloride Carbon Dioxide BUN Creatinine Glucose POC Glucose 224 H 316 H 345 H Hemoglobin A1c Lactic Acid Calcium Phosphorus TIBC Transferrin Ferritin AST Total Creatine Kinase Troponin T Total Protein Albumin Triglycerides Cholesterol LDL Cholesterol Direct Crossmatch 03/29/18 03/29/18 03/29/18 16:27 22:26 22:36 WBC RBC Hgb Hct MCV MCH MCHC RDW Plt Count Lymph % (Auto) [place] % (Auto) Lymph # [place] # Seg Neutrophils % Seg Neuts % (Manual) Lymphocytes % (Manual) Monocytes % (Manual) Seg Neutrophils # Lymphocytes # (Manual) Monocytes # (Manual) POC ABG pH POC ABG pCO2 POC ABG pO2 VBG pH Sodium Potassium Chloride Carbon Dioxide BUN Creatinine Glucose POC Glucose 210 H < 40 L 172 H Hemoglobin A1c Lactic Acid Calcium Phosphorus TIBC Transferrin Ferritin AST Total Creatine Kinase Troponin T Total Protein Albumin Triglycerides Cholesterol LDL Cholesterol Direct Crossmatch 03/30/18 03/30/18 03/30/18 00:07 05:12 06:39 WBC RBC 2.95 L Hgb 8.3 L Hct 24.6 L MCV 83 L MCH MCHC RDW 12.9 L Plt Count Lymph % (Auto) [place] % (Auto) 13.5 H Lymph # [place] # 0.9 H Seg Neutrophils % Seg Neuts % (Manual) Lymphocytes % (Manual) Monocytes % (Manual) Seg Neutrophils # Lymphocytes # (Manual) Monocytes # (Manual) POC ABG pH POC ABG pCO2 POC ABG pO2 VBG pH Sodium Potassium Chloride Carbon Dioxide BUN Creatinine Glucose POC Glucose 69 L 213 H Hemoglobin A1c Lactic Acid Calcium Phosphorus TIBC Transferrin Ferritin AST Total Creatine Kinase Troponin T Total Protein Albumin Triglycerides Cholesterol LDL Cholesterol Direct Crossmatch 03/30/18 03/30/18 03/30/18 06:39 10:06 13:59 WBC RBC Hgb Hct MCV MCH MCHC RDW Plt Count Lymph % (Auto) [place] % (Auto) Lymph # [place] # Seg Neutrophils % Seg Neuts % (Manual) Lymphocytes % (Manual) Monocytes % (Manual) Seg Neutrophils # Lymphocytes # (Manual) Monocytes # (Manual) POC ABG pH POC ABG pCO2 POC ABG pO2 VBG pH Sodium 133 L Potassium 3.5 L D Chloride 95.6 L Carbon Dioxide BUN 34 H Creatinine Glucose 241 H POC Glucose 368 H 237 H Hemoglobin A1c Lactic Acid Calcium 7.3 L Phosphorus TIBC Transferrin Ferritin AST Total Creatine Kinase Troponin T Total Protein Albumin Triglycerides Cholesterol LDL Cholesterol Direct Crossmatch 03/30/18 03/30/18 03/30/18 16:39 20:47 21:30 WBC RBC Hgb Hct MCV MCH MCHC RDW Plt Count Lymph % (Auto) [place] % (Auto) Lymph # [place] # Seg Neutrophils % Seg Neuts % (Manual) Lymphocytes % (Manual) Monocytes % (Manual) Seg Neutrophils # Lymphocytes # (Manual) Monocytes # (Manual) POC ABG pH POC ABG pCO2 POC ABG pO2 VBG pH Sodium Potassium Chloride Carbon Dioxide BUN Creatinine Glucose POC Glucose 176 H 60 L 113 H Hemoglobin A1c Lactic Acid Calcium Phosphorus TIBC Transferrin Ferritin AST Total Creatine Kinase Troponin T Total Protein Albumin Triglycerides Cholesterol LDL Cholesterol Direct Crossmatch 03/31/18 03/31/18 03/31/18 02:07 06:45 07:24 WBC RBC 3.06 L Hgb 8.6 L Hct 25.3 L MCV 83 L MCH MCHC RDW 12.7 L Plt Count Lymph % (Auto) [place] % (Auto) Lymph # [place] # Seg Neutrophils % Seg Neuts % (Manual) 73.0 H Lymphocytes % (Manual) 6.0 L Monocytes % (Manual) 21.0 H Seg Neutrophils # Lymphocytes # (Manual) 0.4 L Monocytes # (Manual) 1.4 H POC ABG pH POC ABG pCO2 POC ABG pO2 VBG pH Sodium Potassium Chloride Carbon Dioxide BUN Creatinine Glucose POC Glucose 140 H 260 H Hemoglobin A1c Lactic Acid Calcium Phosphorus TIBC Transferrin Ferritin AST Total Creatine Kinase Troponin T Total Protein Albumin Triglycerides Cholesterol LDL Cholesterol Direct Crossmatch 03/31/18 03/31/18 03/31/18 07:24 11:51 13:08 WBC RBC Hgb Hct MCV MCH MCHC RDW Plt Count Lymph % (Auto) [place] % (Auto) Lymph # [place] # Seg Neutrophils % Seg Neuts % (Manual) Lymphocytes % (Manual) Monocytes % (Manual) Seg Neutrophils # Lymphocytes # (Manual) Monocytes # (Manual) POC ABG pH POC ABG pCO2 POC ABG pO2 VBG pH Sodium 134 L Potassium Chloride Carbon Dioxide BUN 36 H Creatinine 1.8 H Glucose 271 H POC Glucose > 500 H > 500 H Hemoglobin A1c Lactic Acid Calcium 7.3 L Phosphorus TIBC Transferrin Ferritin AST Total Creatine Kinase Troponin T Total Protein Albumin Triglycerides Cholesterol LDL Cholesterol Direct Crossmatch 03/31/18 03/31/18 03/31/18 14:00 16:15 16:29 WBC RBC Hgb Hct MCV MCH MCHC RDW Plt Count Lymph % (Auto) [place] % (Auto) Lymph # [place] # Seg Neutrophils % Seg Neuts % (Manual) Lymphocytes % (Manual) Monocytes % (Manual) Seg Neutrophils # Lymphocytes # (Manual) Monocytes # (Manual) POC ABG pH POC ABG pCO2 POC ABG pO2 VBG pH Sodium Potassium Chloride Carbon Dioxide BUN Creatinine Glucose POC Glucose > 500 H 405 H 424 H Hemoglobin A1c Lactic Acid Calcium Phosphorus TIBC Transferrin Ferritin AST Total Creatine Kinase Troponin T Total Protein Albumin Triglycerides Cholesterol LDL Cholesterol Direct Crossmatch 03/31/18 04/01/18 04/01/18 21:14 00:21 05:51 WBC RBC 2.55 L Hgb 7.1 L Hct 21.2 L MCV 83 L MCH MCHC RDW 12.5 L Plt Count Lymph % (Auto) [place] % (Auto) Lymph # [place] # Seg Neutrophils % Seg Neuts % (Manual) Lymphocytes % (Manual) Monocytes % (Manual) 22.0 H Seg Neutrophils # Lymphocytes # (Manual) Monocytes # (Manual) 1.1 H POC ABG pH POC ABG pCO2 POC ABG pO2 VBG pH Sodium Potassium Chloride Carbon Dioxide BUN Creatinine Glucose POC Glucose 393 H 384 H Hemoglobin A1c Lactic Acid Calcium Phosphorus TIBC Transferrin Ferritin AST Total Creatine Kinase Troponin T Total Protein Albumin Triglycerides Cholesterol LDL Cholesterol Direct Crossmatch 04/01/18 04/01/18 04/01/18 05:51 06:52 11:13 WBC RBC Hgb Hct MCV MCH MCHC RDW Plt Count Lymph % (Auto) [place] % (Auto) Lymph # [place] # Seg Neutrophils % Seg Neuts % (Manual) Lymphocytes % (Manual) Monocytes % (Manual) Seg Neutrophils # Lymphocytes # (Manual) Monocytes # (Manual) POC ABG pH POC ABG pCO2 POC ABG pO2 VBG pH Sodium Potassium Chloride Carbon Dioxide BUN 35 H Creatinine Glucose 120 H POC Glucose 114 H Hemoglobin A1c Lactic Acid Calcium 7.3 L Phosphorus TIBC Transferrin Ferritin AST Total Creatine Kinase Troponin T Total Protein Albumin Triglycerides Cholesterol LDL Cholesterol Direct Crossmatch See Detail 04/01/18 04/01/18 04/01/18 11:16 12:06 16:04 WBC RBC Hgb 7.3 L Hct 21.5 L MCV MCH MCHC RDW Plt Count Lymph % (Auto) [place] % (Auto) Lymph # [place] # Seg Neutrophils % Seg Neuts % (Manual) Lymphocytes % (Manual) Monocytes % (Manual) Seg Neutrophils # Lymphocytes # (Manual) Monocytes # (Manual) POC ABG pH POC ABG pCO2 POC ABG pO2 VBG pH Sodium Potassium Chloride Carbon Dioxide BUN Creatinine Glucose POC Glucose 223 H 225 H Hemoglobin A1c Lactic Acid Calcium Phosphorus TIBC Transferrin Ferritin AST Total Creatine Kinase Troponin T Total Protein Albumin Triglycerides Cholesterol LDL Cholesterol Direct Crossmatch 04/01/18 04/01/18 04/01/18 16:46 19:47 21:15 WBC RBC Hgb 7.7 L Hct 23.5 L MCV MCH MCHC RDW Plt Count Lymph % (Auto) [place] % (Auto) Lymph # [place] # Seg Neutrophils % Seg Neuts % (Manual) Lymphocytes % (Manual) Monocytes % (Manual) Seg Neutrophils # Lymphocytes # (Manual) Monocytes # (Manual) POC ABG pH POC ABG pCO2 POC ABG pO2 VBG pH Sodium Potassium Chloride Carbon Dioxide BUN Creatinine Glucose POC Glucose 219 H 380 H Hemoglobin A1c Lactic Acid Calcium Phosphorus TIBC Transferrin Ferritin AST Total Creatine Kinase Troponin T Total Protein Albumin Triglycerides Cholesterol LDL Cholesterol Direct Crossmatch 04/02/18 04/02/18 04/02/18 05:47 06:57 07:52 WBC RBC 2.80 L Hgb 7.7 L Hct 23.5 L MCV MCH MCHC RDW Plt Count Lymph % (Auto) [place] % (Auto) Lymph # [place] # Seg Neutrophils % Seg Neuts % (Manual) Lymphocytes % (Manual) Monocytes % (Manual) 25.0 H Seg Neutrophils # Lymphocytes # (Manual) 1.1 L Monocytes # (Manual) 1.3 H POC ABG pH POC ABG pCO2 POC ABG pO2 VBG pH Sodium Potassium Chloride Carbon Dioxide BUN Creatinine Glucose POC Glucose 49 L 111 H Hemoglobin A1c Lactic Acid Calcium Phosphorus TIBC Transferrin Ferritin AST Total Creatine Kinase Troponin T Total Protein Albumin Triglycerides Cholesterol LDL Cholesterol Direct Crossmatch 04/02/18 04/02/18 04/02/18 07:52 12:36 16:36 WBC RBC Hgb Hct MCV MCH MCHC RDW Plt Count Lymph % (Auto) [place] % (Auto) Lymph # [place] # Seg Neutrophils % Seg Neuts % (Manual) Lymphocytes % (Manual) Monocytes % (Manual) Seg Neutrophils # Lymphocytes # (Manual) Monocytes # (Manual) POC ABG pH POC ABG pCO2 POC ABG pO2 VBG pH Sodium Potassium Chloride Carbon Dioxide BUN 28 H Creatinine Glucose 115 H POC Glucose 259 H 297 H Hemoglobin A1c Lactic Acid Calcium 7.3 L Phosphorus TIBC Transferrin Ferritin AST Total Creatine Kinase Troponin T Total Protein Albumin Triglycerides Cholesterol LDL Cholesterol Direct Crossmatch 04/02/18 04/03/18 04/03/18 22:01 04:20 04:46 WBC RBC Hgb Hct MCV MCH MCHC RDW Plt Count Lymph % (Auto) [place] % (Auto) Lymph # [place] # Seg Neutrophils % Seg Neuts % (Manual) Lymphocytes % (Manual) Monocytes % (Manual) Seg Neutrophils # Lymphocytes # (Manual) Monocytes # (Manual) POC ABG pH POC ABG pCO2 POC ABG pO2 VBG pH Sodium Potassium Chloride Carbon Dioxide BUN Creatinine Glucose POC Glucose 206 H < 40 L 64 L Hemoglobin A1c Lactic Acid Calcium Phosphorus TIBC Transferrin Ferritin AST Total Creatine Kinase Troponin T Total Protein Albumin Triglycerides Cholesterol LDL Cholesterol Direct Crossmatch 04/03/18 04/03/18 04/03/18 05:46 05:46 05:57 WBC RBC 2.72 L Hgb 7.6 L Hct 22.4 L MCV 83 L MCH MCHC RDW Plt Count Lymph % (Auto) [place] % (Auto) Lymph # [place] # Seg Neutrophils % Seg Neuts % (Manual) Lymphocytes % (Manual) 13.0 L Monocytes % (Manual) 19.0 H Seg Neutrophils # Lymphocytes # (Manual) 0.9 L Monocytes # (Manual) 1.3 H POC ABG pH POC ABG pCO2 POC ABG pO2 VBG pH Sodium Potassium Chloride 110.7 H Carbon Dioxide BUN 24 H Creatinine Glucose 45 L POC Glucose < 40 L Hemoglobin A1c Lactic Acid Calcium 7.3 L Phosphorus TIBC Transferrin Ferritin AST Total Creatine Kinase Troponin T Total Protein Albumin Triglycerides Cholesterol LDL Cholesterol Direct Crossmatch 04/03/18 04/03/18 04/03/18 07:04 09:17 11:34 WBC RBC Hgb Hct MCV MCH MCHC RDW Plt Count Lymph % (Auto) [place] % (Auto) Lymph # [place] # Seg Neutrophils % Seg Neuts % (Manual) Lymphocytes % (Manual) Monocytes % (Manual) Seg Neutrophils # Lymphocytes # (Manual) Monocytes # (Manual) POC ABG pH POC ABG pCO2 POC ABG pO2 VBG pH Sodium Potassium Chloride Carbon Dioxide BUN Creatinine Glucose POC Glucose 44 L 107 H 196 H Hemoglobin A1c Lactic Acid Calcium Phosphorus TIBC Transferrin Ferritin AST Total Creatine Kinase Troponin T Total Protein Albumin Triglycerides Cholesterol LDL Cholesterol Direct Crossmatch 04/03/18 04/03/18 04/04/18 16:48 20:25 06:05 WBC RBC 2.49 L Hgb 6.9 L Hct 20.8 L MCV 83 L MCH MCHC RDW Plt Count Lymph % (Auto) [place] % (Auto) Lymph # [place] # Seg Neutrophils % Seg Neuts % (Manual) Lymphocytes % (Manual) Monocytes % (Manual) 23.0 H Seg Neutrophils # Lymphocytes # (Manual) 0.7 L Monocytes # (Manual) 1.2 H POC ABG pH POC ABG pCO2 POC ABG pO2 VBG pH Sodium Potassium Chloride Carbon Dioxide BUN Creatinine Glucose POC Glucose 251 H 211 H Hemoglobin A1c Lactic Acid Calcium Phosphorus TIBC Transferrin Ferritin AST Total Creatine Kinase Troponin T Total Protein Albumin Triglycerides Cholesterol LDL Cholesterol Direct Crossmatch 04/04/18 04/04/18 06:05 06:06 WBC RBC Hgb Hct MCV MCH MCHC RDW Plt Count Lymph % (Auto) [place] % (Auto) Lymph # [place] # Seg Neutrophils % Seg Neuts % (Manual) Lymphocytes % (Manual) Monocytes % (Manual) Seg Neutrophils # Lymphocytes # (Manual) Monocytes # (Manual) POC ABG pH POC ABG pCO2 POC ABG pO2 VBG pH Sodium Potassium Chloride 109.8 H Carbon Dioxide BUN 22 H Creatinine 1.7 H Glucose 260 H POC Glucose 312 H Hemoglobin A1c Lactic Acid Calcium 7.2 L Phosphorus TIBC Transferrin Ferritin AST Total Creatine Kinase Troponin T Total Protein Albumin Triglycerides Cholesterol LDL Cholesterol Direct Crossmatch Chest x-ray: report reviewed (New patchy infiltrate left lung base atelectasis or infiltrate.), image reviewed Allied health notes reviewed: nursing
--- NOTE | 2018-04-04 16:16 | Progress Note ---
<[email or web address] - Last Filed: 04/04/18 16:13> Assessment and Plan Pt states symptoms continue to improve. Hemoglobin down slightly from yesterday. Venous duplex of lower ext was negative for DVT. - Patient Problems (1) Superficial venous thrombosis of both upper extremities Current Visit: Yes Status: Acute (2) Anasarca Current Visit: Yes Status: Acute (3) Hypoalbuminemia Current Visit: Yes Status: Acute (4) Hypoproteinemia Current Visit: Yes Status: Acute (5) DKA (diabetic ketoacidoses) Current Visit: Yes Status: Acute Qualifiers: Diabetes mellitus type: type 1 Diabetes mellitus complication detail: with coma Qualified Code(s): E10.11 - Type 1 diabetes mellitus with ketoacidosis with coma (6) Acute renal failure Current Visit: Yes Status: Acute Qualifiers: Acute renal failure type: unspecified Qualified Code(s): N17.9 - Acute kidney failure, unspecified Subjective Date of service: 04/04/18 Principal diagnosis: Acute hypoxic respiratory failure, DKA, BELKIS, Acute encephalopathy Interval history: Pt sleeping, but woke easily. Continues to feel better, daily. Objective - Constitutional Vitals: Vital Signs - 12hr 04/04/18 04/04/18 04/04/18 04:41 06:59 08:11 Temperature 98.7 F 98.4 F Pulse Rate 83 83 95 H Respiratory 18 24 Rate Blood Pressure 175/94 175/94 171/74 O2 Sat by Pulse 94 96 Oximetry 04/04/18 11:37 Temperature 99.4 F Pulse Rate 92 H Respiratory 18 Rate Blood Pressure 154/74 O2 Sat by Pulse 96 Oximetry General appearance: Present: no acute distress - EENT Eyes: EOM intact ENT: hearing intact - Neck Neck: supple - Respiratory Respiratory effort: normal Extremities: no ischemia, normal temperature, abnormal (blisters and skin wounds to upper ext bandaged) Extremity abnormal: edema (to all ext improving) - Neurologic Neurologic: no focal deficits - Psychiatric Psychiatric: appropriate mood/affect, intact judgment & insight, cooperative - Labs CBC & Chem 7: 04/04/18 06:05 04/04/18 06:05 Labs: Abnormal lab results 04/03/18 04/03/18 04/04/18 Range/Units 16:48 20:25 06:05 RBC 2.49 L (3.65-5.03) M/mm3 Hgb 6.9 L (11.8-15.2) gm/dl Hct 20.8 L (35.5-45.6) % MCV 83 L (84-94) fl Monocytes % (Manual) 23.0 H (0.0-7.3) % Lymphocytes # (Manual) 0.7 L (1.2-5.4) K/mm3 Monocytes # (Manual) 1.2 H (0.0-0.8) K/mm3 Chloride (98-107) mmol/L BUN (9-20) mg/dL Creatinine (0.8-1.5) mg/dL Glucose (75-100) mg/dL POC Glucose 251 H 211 H (70-105) Calcium (8.4-10.2) mg/dL 04/04/18 04/04/18 Range/Units 06:05 06:06 RBC (3.65-5.03) M/mm3 Hgb (11.8-15.2) gm/dl Hct (35.5-45.6) % MCV (84-94) fl Monocytes % (Manual) (0.0-7.3) % Lymphocytes # (Manual) (1.2-5.4) K/mm3 Monocytes # (Manual) (0.0-0.8) K/mm3 Chloride 109.8 H (98-107) mmol/L BUN 22 H (9-20) mg/dL Creatinine 1.7 H (0.8-1.5) mg/dL Glucose 260 H (75-100) mg/dL POC Glucose 312 H (70-105) Calcium 7.2 L (8.4-10.2) mg/dL <DANIS DICKINSON - Last Filed: 04/04/18 18:25> Assessment and Plan - Patient Problems (1) Anasarca Current Visit: Yes Status: Acute Plan to address problem: swelling dimminished no DVT Objective - Constitutional Vitals: Vital Signs - 12hr 04/04/18 04/04/18 04/04/18 06:59 08:11 11:37 Temperature 98.4 F 99.4 F Pulse Rate 83 95 H 92 H Respiratory 24 18 Rate Blood Pressure 175/94 171/74 154/74 O2 Sat by Pulse 96 96 Oximetry - Labs CBC & Chem 7: 04/04/18 06:05 04/04/18 06:05 Labs: Abnormal lab results 04/03/18 04/04/18 04/04/18 Range/Units 20:25 06:05 06:05 RBC 2.49 L (3.65-5.03) M/mm3 Hgb 6.9 L (11.8-15.2) gm/dl Hct 20.8 L (35.5-45.6) % MCV 83 L (84-94) fl Monocytes % (Manual) 23.0 H (0.0-7.3) % Lymphocytes # (Manual) 0.7 L (1.2-5.4) K/mm3 Monocytes # (Manual) 1.2 H (0.0-0.8) K/mm3 Chloride 109.8 H (98-107) mmol/L BUN 22 H (9-20) mg/dL Creatinine 1.7 H (0.8-1.5) mg/dL Glucose 260 H (75-100) mg/dL POC Glucose 211 H (70-105) Calcium 7.2 L (8.4-10.2) mg/dL 04/04/18 Range/Units 06:06 RBC (3.65-5.03) M/mm3 Hgb (11.8-15.2) gm/dl Hct (35.5-45.6) % MCV (84-94) fl Monocytes % (Manual) (0.0-7.3) % Lymphocytes # (Manual) (1.2-5.4) K/mm3 Monocytes # (Manual) (0.0-0.8) K/mm3 Chloride (98-107) mmol/L BUN (9-20) mg/dL Creatinine (0.8-1.5) mg/dL Glucose (75-100) mg/dL POC Glucose 312 H (70-105) Calcium (8.4-10.2) mg/dL
[2018-04-04] MEDS: APRESOLINE PO SCH ×2 (17:41→21:49)
[2018-04-04] MEDS ORDERED: NACL 0.9% 500 ML 500 ML IV NR (19:51)
--- NOTE | 2018-04-04 19:53 | Progress Note ---
Assessment and Plan Assessment and plan: --Severe anemia; mild drop in H&H Transfuse additional 1 unit of PRBC today , received 1 unit PRBC no external evidence of bleeding; stool guaiac-negative GI evaluated, recommended out patient workup, --Bilateral upper extremity superficial venous thrombosis/cellulitis With edema, cellulitis and blisters, Elevate the limb Signs and symptoms significantly improved Empiric antibiotics wound care, vascular evaluated --Labile blood sugars; Moderate control; Accu-Chek sliding scale coverage and ADA diet, long-acting insulin Closely monitor blood sugars and adjust insulin dose as needed --DKA (diabetic ketoacidoses); resolved BG was 1026, with pH of 6.9, AG 49 at the time of admission now off insulin drip, on long-acting insulin twice a day dose Sliding scale coverage high-dose scale, A1c 8.9 On ADA diet --Acute respiratory failure; saturating well on nasal cannula oxygen s/p ventilator management and support, extubated 03/28 Continued nebs, evaluation for home oxygen at discharge --BELKIS (acute kidney injury)secondary to severe dehydration Due to ATN, trending down --Severe hypoalbuminemia; severe malnutrition Nutrition consults, supportive care --Metabolic acidosis due to DKA and renal failure Admission to improve continue supportive care --Hypertension,moderate control Continue current antihypertensives and when necessary medications --DVT prophylaxis Heparin subcutaneously 5000 units every 8 hours Plan of care reviewed with the patient and his nurse Closely monitor blood sugars Possible home health nurse for disease monitoring at discharge Possible discharge in 1-2 days if stable History Interval history: Patient seen and examined medical records reviewed No new events reported by the nursing staff Patient has mild drop in H&H, no external evidence of bleeding GI has evaluated the patient recently Recommend Outpatient workup Hospitalist Physical - Constitutional Vitals: Temp Pulse Resp BP Pulse Ox 99.4 F 92 H 18 154/74 96 04/04/18 11:37 04/04/18 11:37 04/04/18 11:37 04/04/18 11:37 04/04/18 11:37 General appearance: Present: no acute distress, well-nourished, obese - EENT Eyes: Present: PERRL, EOM intact - Neck Neck: Present: supple, normal ROM - Respiratory Respiratory effort: normal Respiratory: bilateral: diminished, negative: rales, rhonchi, wheezing - Cardiovascular Rhythm: regular Heart Sounds: Present: S1 & S2 - Extremities Extremities: abnormal (swelling bilateral upper extremities/blisters , significantly improved) Extremity abnormal: other (superficial venous thrombosis) - Abdominal General gastrointestinal: soft, non-tender, non-distended, normal bowel sounds - Integumentary Integumentary: Present: clear, warm - Psychiatric Psychiatric: appropriate mood/affect, cooperative - Neurologic Neurologic: CNII-XII intact, moves all extremities Results - Labs CBC & Chem 7: 04/04/18 06:05 04/04/18 06:05 Labs: Laboratory Last Values WBC 5.2 K/mm3 (4.5-11.0) 04/04/18 06:05 RBC 2.49 M/mm3 (3.65-5.03) L 04/04/18 06:05 Hgb 6.9 gm/dl (11.8-15.2) L 04/04/18 06:05 Hct 20.8 % (35.5-45.6) L 04/04/18 06:05 MCV 83 fl (84-94) L 04/04/18 06:05 MCH 28 pg (28-32) 04/04/18 06:05 MCHC 33 % (32-34) 04/04/18 06:05 RDW 13.2 % (13.2-15.2) 04/04/18 06:05 Plt Count 330 K/mm3 (140-440) 04/04/18 06:05 Lymph % (Auto) 20.2 % (13.4-35.0) 03/30/18 06:39 [place] % (Auto) [employer] 04/04/18 06:05 Eos % (Auto) 1.7 % (0.0-4.3) 03/30/18 06:39 Baso % (Auto) 0.5 % (0.0-1.8) 03/30/18 06:39 Lymph # 1.3 K/mm3 (1.2-5.4) 03/30/18 06:39 [place] # 0.9 K/mm3 (0.0-0.8) H 03/30/18 06:39 Eos # 0.1 K/mm3 (0.0-0.4) 03/30/18 06:39 Baso # 0.0 K/mm3 (0.0-0.1) 03/30/18 06:39 Add Manual Diff Complete 04/04/18 06:05 Total Counted 100 04/04/18 06:05 Seg Neutrophils % 64.1 % (40.0-70.0) 03/30/18 06:39 Seg Neuts % (Manual) 55.0 % (40.0-70.0) 04/04/18 06:05 Band Neutrophils % 2.0 % 04/04/18 06:05 Lymphocytes % (Manual) 14.0 % (13.4-35.0) 04/04/18 06:05 Reactive Lymphs % (Man) 0 % 04/04/18 06:05 Monocytes % (Manual) 23.0 % (0.0-7.3) H 04/04/18 06:05 Eosinophils % (Manual) 4.0 % (0.0-4.3) 04/04/18 06:05 Basophils % (Manual) 0 % (0.0-1.8) 04/04/18 06:05 Metamyelocytes % 2.0 % 04/04/18 06:05 Myelocytes % 0 % 04/04/18 06:05 Promyelocytes % 0 % 04/04/18 06:05 Blast Cells % 0 % 04/04/18 06:05 Nucleated RBC % Not Reportable 04/04/18 06:05 Seg Neutrophils # 4.2 K/mm3 (1.8-7.7) 03/30/18 06:39 Seg Neutrophils # Man 2.9 K/mm3 (1.8-7.7) 04/04/18 06:05 Band Neutrophils # 0.1 K/mm3 04/04/18 06:05 Lymphocytes # (Manual) 0.7 K/mm3 (1.2-5.4) L 04/04/18 06:05 Abs React Lymphs (Man) 0.0 K/mm3 04/04/18 06:05 Monocytes # (Manual) 1.2 K/mm3 (0.0-0.8) H 04/04/18 06:05 Eosinophils # (Manual) 0.2 K/mm3 (0.0-0.4) 04/04/18 06:05 Basophils # (Manual) 0.0 K/mm3 (0.0-0.1) 04/04/18 06:05 Metamyelocytes # 0.1 K/mm3 04/04/18 06:05 Myelocytes # 0.0 K/mm3 04/04/18 06:05 Promyelocytes # 0.0 K/mm3 04/04/18 06:05 Blast Cells # 0.0 K/mm3 04/04/18 06:05 WBC Morphology Not Reportable 04/04/18 06:05 Hypersegmented Neuts Not Reportable 04/04/18 06:05 Hyposegmented Neuts Not Reportable 04/04/18 06:05 Hypogranular Neuts Not Reportable 04/04/18 06:05 Smudge Cells Not Reportable 04/04/18 06:05 Toxic Granulation Not Reportable 04/04/18 06:05 Toxic Vacuolation Not Reportable 04/04/18 06:05 Dohle Bodies Not Reportable 04/04/18 06:05 Pelger-Huet Anomaly Not Reportable 04/04/18 06:05 Loi Rods Not Reportable 04/04/18 06:05 Platelet Estimate Appears normal 04/04/18 06:05 Clumped Platelets Not Reportable 04/04/18 06:05 Plt Clumps, EDTA Not Reportable 04/04/18 06:05 Large Platelets Not Reportable 04/04/18 06:05 Giant Platelets Not Reportable 04/04/18 06:05 Platelet Satelliting Not Reportable 04/04/18 06:05 Plt Morphology Comment Not Reportable 04/04/18 06:05 RBC Morphology Not Reportable 04/04/18 06:05 Dimorphic RBCs Not Reportable 04/04/18 06:05 Polychromasia Not Reportable 04/04/18 06:05 Hypochromasia Few 04/04/18 06:05 Poikilocytosis Not Reportable 04/04/18 06:05 Anisocytosis 1+ 04/04/18 06:05 Microcytosis Not Reportable 04/04/18 06:05 Macrocytosis Not Reportable 04/04/18 06:05 Spherocytes Not Reportable 04/04/18 06:05 Pappenheimer Bodies Not Reportable 04/04/18 06:05 Sickle Cells Not Reportable 04/04/18 06:05 Target Cells Not Reportable 04/04/18 06:05 Tear Drop Cells Not Reportable 04/04/18 06:05 Ovalocytes Not Reportable 04/04/18 06:05 Helmet Cells Not Reportable 04/04/18 06:05 [place] Bodies Not Reportable 04/04/18 06:05 [place] Rings Not Reportable 04/04/18 06:05 [place] Cells Not Reportable 04/04/18 06:05 Bite Cells Not Reportable 04/04/18 06:05 Crenated Cell Not Reportable 04/04/18 06:05 Elliptocytes Not Reportable 04/04/18 06:05 Acanthocytes (Spur) Not Reportable 04/04/18 06:05 Rouleaux Not Reportable 04/04/18 06:05 Hemoglobin C Crystals Not Reportable 04/04/18 06:05 Schistocytes Not Reportable 04/04/18 06:05 Malaria parasites Not Reportable 04/04/18 06:05 Lev Bodies Not Reportable 04/04/18 06:05 Hem Pathologist Commnt No 04/04/18 06:05 POC ABG pH 7.405 (7.35-7.45) 03/28/18 03:49 POC ABG pCO2 38.6 (35-45) 03/28/18 03:49 POC ABG pO2 102 (80-105) 03/28/18 03:49 POC ABG HCO3 24.2 03/28/18 03:49 POC ABG Total CO2 25 03/28/18 03:49 POC ABG O2 Sat 98 03/28/18 03:49 POC ABG Base Excess 0 03/28/18 03:49 VBG pH 7.000 (7.320-7.420) L* 03/25/18 14:41 FiO2 25 % 03/28/18 03:49 Sodium 142 mmol/L (137-145) 04/04/18 06:05 Potassium 4.6 mmol/L (3.6-5.0) D 04/04/18 06:05 Chloride 109.8 mmol/L (98-107) H 04/04/18 06:05 Carbon Dioxide 22 mmol/L (22-30) 04/04/18 06:05 Anion Gap 15 mmol/L 04/04/18 06:05 BUN 22 mg/dL (9-20) H 04/04/18 06:05 Creatinine 1.7 mg/dL (0.8-1.5) H 04/04/18 06:05 Estimated GFR 51 ml/min 04/04/18 06:05 BUN/Creatinine Ratio 13 % 04/04/18 06:05 Glucose 260 mg/dL (75-100) H 04/04/18 06:05 POC Glucose 312 (70-105) H 04/04/18 06:06 Hemoglobin A1c 8.9 % (4-6) H 03/25/18 18:55 Lactic Acid 1.80 mmol/L (0.7-2.0) 03/26/18 04:25 Calcium 7.2 mg/dL (8.4-10.2) L 04/04/18 06:05 Phosphorus 3.70 mg/dL (2.5-4.5) 04/03/18 05:46 Magnesium 2.00 mg/dL (1.7-2.3) 04/04/18 06:05 Iron 54 ug/dL (49-181) 03/28/18 04:35 TIBC 115 mcg/dL (250-450) L 03/28/18 04:35 Transferrin 94 mg/dl (180-329) L 03/28/18 04:35 Ferritin 412.1 ng/mL (13.0-400.0) H 03/28/18 04:35 Total Bilirubin 0.20 mg/dL (0.1-1.2) 03/27/18 03:35 Direct Bilirubin < 0.2 mg/dL (0-0.2) 03/25/18 14:08 Indirect Bilirubin 0.1 mg/dL 03/25/18 14:08 AST 44 units/L (5-40) H 03/27/18 03:35 ALT 28 units/L (7-56) 03/27/18 03:35 Alkaline Phosphatase 128 units/L (35-129) 03/27/18 03:35 Total Creatine Kinase 226 units/L (55-170) H 03/25/18 18:09 CK-MB (CK-2) 3.7 ng/mL (0.0-4.0) 03/25/18 18:09 CK-MB (CK-2) Rel Index 1.6 (0-4) 03/25/18 18:09 Troponin T 0.033 ng/mL (0.00-0.029) H 03/25/18 18:09 Total Protein 5.1 g/dL (6.3-8.2) L D 03/27/18 03:35 Albumin 2.1 g/dL (3.9-5) L 03/27/18 03:35 Albumin/Globulin Ratio 0.7 % 03/27/18 03:35 Triglycerides 185 mg/dL (2-149) H 03/25/18 18:09 Cholesterol 215 mg/dL (50-199) H 03/25/18 18:09 LDL Cholesterol Direct 144 mg/dL (50-130) H 03/25/18 18:09 HDL Cholesterol 48 mg/dL (40-59) 03/25/18 18:09 Cholesterol/HDL Ratio 4.47 % 03/25/18 18:09 Urine Color Yellow (Yellow) 03/25/18 14:00 Urine Turbidity Clear (Clear) 03/25/18 14:00 Urine pH 5.0 (5.0-7.0) 03/25/18 14:00 Ur Specific [place] 1.021 (1.003-1.030) 03/25/18 14:00 Urine Protein 100 mg/dl mg/dL (Negative) 03/25/18 14:00 Urine Glucose (UA) >=500 mg/dL (Negative) 03/25/18 14:00 Urine Ketones 80 mg/dL (Negative) 03/25/18 14:00 Urine Blood Sm (Negative) 03/25/18 14:00 Urine Nitrite Neg (Negative) 03/25/18 14:00 Urine Bilirubin Neg (Negative) 03/25/18 14:00 Urine Urobilinogen < 2.0 mg/dL (<2.0) 03/25/18 14:00 Ur Leukocyte Esterase Neg (Negative) 03/25/18 14:00 Urine WBC (Auto) 1.0 /HPF (0.0-6.0) 03/25/18 14:00 Urine RBC (Auto) 1.0 /HPF (0.0-6.0) 03/25/18 14:00 Urine Bacteria (Auto) 1+ /HPF (Negative) 03/25/18 14:00 Urine Mucus Few /HPF 03/25/18 14:00 Urine Opiates Screen Presumptive negative 03/25/18 14:19 Urine Methadone Screen Presumptive negative 03/25/18 14:19 Ur Barbiturates Screen Presumptive negative 03/25/18 14:19 Ur Phencyclidine Scrn Presumptive negative 03/25/18 14:19 Ur Amphetamines Screen Presumptive negative 03/25/18 14:19 U Benzodiazepines Scrn Presumptive negative 03/25/18 14:19 Urine Cocaine Screen Presumptive negative 03/25/18 14:19 U Marijuana (THC) Screen Presumptive negative 03/25/18 14:19 Drugs of Abuse Note Disclamer 03/25/18 14:19 Blood Type O POSITIVE 04/01/18 11:13 Antibody Screen Negative 04/01/18 11:13 Crossmatch See Detail 04/01/18 11:13
[2018-04-04] MEDS: LOVENOX SUB-Q SCH (21:48)
[2018-04-05] MEDS: APRESOLINE IV PRN ×2 (02:00→10:51)
[2018-04-05] MEDS: VANCOMYCIN 1,250 MG in NACL 0.9% 250ML 250 ML IV SCH (02:50)
[2018-04-05] MEDS: APRESOLINE PO SCH ×4 (06:07→21:12)
[2018-04-05] MEDS: ZOSYN/NS 4.5GM/100ML 4.5 GM/100 ML VIAL IV SCH ×3 (06:07→23:09)
[2018-04-05] MEDS: D50W (25GM) Syringe IV PRN (06:30)
[2018-04-05 06:38] LABS: Basophils # (Auto) 0.1 K/mm3 (0.0-0.1); Basophils % (Auto) 0.8 % (0.0-1.8); Eosinophils # (Auto) 0.2 K/mm3 (0.0-0.4); Eosinophils % (Auto) 2.1 % (0.0-4.3); Hemoglobin 8.6 gm/dl (11.8-15.2); Lymphocytes # (Auto) 1.2 K/mm3 (1.2-5.4); Lymphocytes % (Auto) 15.9 % (13.4-35.0); Mean Corpuscular HGB Conc 34 % (32-34); Mean Corpuscular Hemoglobin 29 pg (28-32); Mean Corpuscular Volume 84 fl (84-94); Monocytes # (Auto) 1.2 K/mm3 (0.0-0.8); Monocytes % (Auto) 15.9 % (0.0-7.3); Platelet Count 392 K/mm3 (140-440); Red Blood Count 2.97 M/mm3 (3.65-5.03); Red Cell Distribution Width 14.1 % (13.2-15.2)
[2018-04-05 07:10] LABS: Albumin 2.3 g/dL (3.9-5); Calcium 7.3 mg/dL (8.4-10.2)
[2018-04-05 07:12] LABS: Bilirubin,Urine NEG (Negative); Blood,Urine SM (Negative); Color,Urine Yellow (Yellow); Mucus,Urine FEW /HPF; Urobilinogen,Urine < 2.0 mg/dL (<2.0)
[2018-04-05 07:50] LABS: Protein,Urine >500 mg/dL (Negative)
[2018-04-05] MEDS: HumuLIN R SUB-Q SCH ×4 (08:12→23:16)
[2018-04-05] MEDS: PEPCID PO SCH ×2 (10:50→21:09)
[2018-04-05] MEDS: PROzac PO SCH (10:50)
[2018-04-05] MEDS: BABY ASPIRIN PO SCH (10:50)
[2018-04-05] MEDS: SODIUM CHLORIDE FLUSH SYRINGE 10 ML IV SCH ×2 (10:50→21:31)
[2018-04-05] MEDS: MINIPRESS PO SCH ×2 (10:50→21:09)
[2018-04-05] MEDS: COREG PO SCH ×2 (10:51→21:10)
[2018-04-05] MEDS ORDERED: LASIX IV NR (12:23)
--- NOTE | 2018-04-05 16:08 | Progress Note ---
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: -Cr trending up. Serum albumin low. Albumin Q8h X 6 doses ordered. -UA does not show much white cells to suggest AIN. Could have ATN from ABx. -Renally dose meds -Strict intake and output -Obtain daily weight Normocytic anemia: -Hg low, transfuse PRN primary Cellulitus: -On Abx -Per primary Metabolic acidosis: -Mild, monitor Acute Respiratory Failure: -extubated -Pulmonology on board Diabetes Mellitus Type 2: -Per primary Essential Hypertension: -Titrate BP meds PRN to keep SBP <130 -Inc Hydralazine to 50 mg TID. Glen Dimas MD [phone] Subjective Date of service: 04/05/18 Principal diagnosis: Acute hypoxic respiratory failure, DKA, BELKIS, Acute encephalopathy Interval history: Denies CP, SHOB. Objective - Exam Narrative Exam: General appearance: well-developed, well-nourished EENT: ATNC, PERRL, mucous membranes moist Neck: no JVD, no carotid bruit Respiratory: Present: Clear to Ascultation. Absent: Rales, Ronchi Cardiology: regular, S1S2 Gastrointestinal: normoactive bowel sounds, no tenderness, no distended Integumentary: no rash, warm and dry Neurologic: no focal deficit, no asterixis Musculoskeletal: 2+ BLE edema Psychiatric: cooperative - Vital Signs Vital signs: Vital Signs - 12hr 04/05/18 04/05/18 04/05/18 04:08 07:45 10:00 Temperature 98.9 F 98.5 F Pulse Rate 81 94 H 84 Respiratory 22 22 Rate Blood Pressure 181/81 193/91 Blood Pressure [Right] O2 Sat by Pulse 93 95 Oximetry 04/05/18 04/05/18 04/05/18 10:27 10:43 10:51 Temperature 98.5 F Pulse Rate 98 H 82 Respiratory 22 Rate Blood Pressure 178/88 178/88 Blood Pressure 193/91 [Right] O2 Sat by Pulse 93 93 Oximetry 04/05/18 12:03 Temperature 99.0 F Pulse Rate 89 Respiratory 20 Rate Blood Pressure 160/81 Blood Pressure [Right] O2 Sat by Pulse 96 Oximetry - Lab 04/05/18 06:10 04/05/18 06:10 Most recent lab results Calcium 7.3 mg/dL (8.4-10.2) L 04/05/18 06:10 Phosphorus 3.70 mg/dL (2.5-4.5) 04/03/18 05:46 Magnesium 2.00 mg/dL (1.7-2.3) 04/05/18 06:10 Urine Creatinine 112.0 mg/dL (0.1-20.0) H 04/05/18 06:18
--- NOTE | 2018-04-05 18:15 | Progress Note ---
Assessment and Plan Patient resting on room air . No acute respiratory distress.O2 saturation 94%. Patient running very low grade temp.Denies cough,chest pain or shortness of breath. No leukocytosis. - Patient Problems (1) Acute respiratory failure Current Visit: Yes Status: Acute Qualifiers: Respiratory failure complication: hypoxia Qualified Code(s): J96.01 - Acute respiratory failure with hypoxia Plan to address problem: Improved. No complaint of shortness of breath.O2 saturation 94% on room air. (2) DKA (diabetic ketoacidoses) Current Visit: Yes Status: Acute Qualifiers: Diabetes mellitus type: type 1 Diabetes mellitus complication detail: with coma Qualified Code(s): E10.11 - Type 1 diabetes mellitus with ketoacidosis with coma Plan to address problem: Improving. Management as per primary care. (3) BELKIS (acute kidney injury) Current Visit: Yes Status: Acute (4) Pulmonary infiltrate in left lung on chest x-ray Current Visit: Yes Status: Acute Plan to address problem: Patient is on zosyn. Repeating chest xray. Subjective Date of service: 04/05/18 Principal diagnosis: Acute hypoxic respiratory failure, DKA, BELKIS, Acute encephalopathy Interval history: Patient resting on room air . No acute respiratory distress.O2 saturation 94% .Patient running very low grade temp.Denies cough,chest pain or shortness of breath. No leukocytosis. Objective Vital Signs - 12hr 04/05/18 04/05/18 04/05/18 07:45 10:00 10:27 Temperature 98.5 F 98.5 F Pulse Rate 94 H 84 98 H Respiratory 22 22 Rate Blood Pressure 193/91 Blood Pressure 193/91 [Right] O2 Sat by Pulse 95 93 Oximetry 04/05/18 04/05/18 04/05/18 10:43 10:51 12:03 Temperature 99.0 F Pulse Rate 82 89 Respiratory 20 Rate Blood Pressure 178/88 178/88 160/81 Blood Pressure [Right] O2 Sat by Pulse 93 96 Oximetry 04/05/18 16:15 Temperature 98.9 F Pulse Rate 90 Respiratory 22 Rate Blood Pressure 182/84 Blood Pressure [Right] O2 Sat by Pulse 94 Oximetry Constitutional: no acute distress, alert, other (middle aged AAM, normocephalic and atraumatic) Eyes: non-icteric ENT: oropharynx moist, other (mallampatti 2) Neck: supple, no lymphadenopathy, no JVD, other (no thyromegaly) Effort: normal Ascultation: Bilateral: diminished breath sounds, rhonchi (posterior base) Percussion: Bilateral: not dull Cardiovascular: regular rate and rhythm, other (No R/M) Gastrointestinal: normoactive bowel sounds, soft, non-tender, non-distended, other ( No HSM) Integumentary: normal Extremities: no cyanosis, pulses normal, no ischemia or petechiae, edema (to hands) Neurologic: normal mental status, non-focal exam (grossly), pupils equal and round, CN II-XII normal, motor strength normal and Psychiatric: mood appropriate, affect normal CBC and BMP: 04/05/18 06:10 04/05/18 06:10 ABG, PT/INR, D-dimer: ABG POC ABG pH 7.405 (7.35-7.45) 03/28/18 03:49 POC ABG pCO2 38.6 (35-45) 03/28/18 03:49 POC ABG pO2 102 (80-105) 03/28/18 03:49 POC ABG HCO3 24.2 03/28/18 03:49 POC ABG Total CO2 25 03/28/18 03:49 POC ABG O2 Sat 98 03/28/18 03:49 Abnormal lab findings: Abnormal Labs 03/25/18 03/25/18 03/25/18 13:48 14:00 14:00 WBC 15.3 H RBC Hgb 10.5 L Hct MCV 95 H MCH 27 L MCHC 28 L RDW Plt Count Lymph % (Auto) 8.5 L Boyd % (Auto) Lymph # Boyd # Seg Neutrophils % 86.4 H Seg Neuts % (Manual) Lymphocytes % (Manual) Monocytes % (Manual) Seg Neutrophils # 13.2 H Lymphocytes # (Manual) Monocytes # (Manual) POC ABG pH POC ABG pCO2 POC ABG pO2 VBG pH Sodium 132 L Potassium 8.1 H* Chloride 87.8 L Carbon Dioxide 3 L* BUN 43 H Creatinine 2.6 H Glucose 1026 H* POC Glucose > 500 H Hemoglobin A1c Lactic Acid Calcium Phosphorus TIBC Transferrin Ferritin AST Total Creatine Kinase Troponin T Total Protein Albumin Triglycerides Cholesterol LDL Cholesterol Direct Urine Creatinine Crossmatch 03/25/18 03/25/18 03/25/18 14:00 14:08 14:29 WBC RBC Hgb Hct MCV MCH MCHC RDW Plt Count Lymph % (Auto) Boyd % (Auto) Lymph # Boyd # Seg Neutrophils % Seg Neuts % (Manual) Lymphocytes % (Manual) Monocytes % (Manual) Seg Neutrophils # Lymphocytes # (Manual) Monocytes # (Manual) POC ABG pH 6.952 L POC ABG pCO2 25.8 L POC ABG pO2 559 H VBG pH Sodium Potassium Chloride Carbon Dioxide BUN Creatinine Glucose POC Glucose Hemoglobin A1c Lactic Acid 10.10 H* Calcium Phosphorus 8.70 H TIBC Transferrin Ferritin AST Total Creatine Kinase Troponin T Total Protein Albumin 2.6 L Triglycerides Cholesterol LDL Cholesterol Direct Urine Creatinine Crossmatch 03/25/18 03/25/18 03/25/18 14:41 15:40 15:40 WBC RBC Hgb Hct MCV MCH MCHC RDW Plt Count Lymph % (Auto) Boyd % (Auto) Lymph # Boyd # Seg Neutrophils % Seg Neuts % (Manual) Lymphocytes % (Manual) Monocytes % (Manual) Seg Neutrophils # Lymphocytes # (Manual) Monocytes # (Manual) POC ABG pH POC ABG pCO2 POC ABG pO2 VBG pH 7.000 L* Sodium Potassium 6.7 H* Chloride 97.5 L Carbon Dioxide 5 L* BUN 43 H Creatinine 2.5 H Glucose 893 H* POC Glucose Hemoglobin A1c Lactic Acid Calcium 7.5 L Phosphorus 9.10 H TIBC Transferrin Ferritin AST Total Creatine Kinase Troponin T Total Protein Albumin Triglycerides Cholesterol LDL Cholesterol Direct Urine Creatinine Crossmatch 03/25/18 03/25/18 03/25/18 18:09 18:12 18:55 WBC RBC Hgb Hct MCV MCH MCHC RDW Plt Count Lymph % (Auto) Boyd % (Auto) Lymph # Boyd # Seg Neutrophils % Seg Neuts % (Manual) Lymphocytes % (Manual) Monocytes % (Manual) Seg Neutrophils # Lymphocytes # (Manual) Monocytes # (Manual) POC ABG pH POC ABG pCO2 POC ABG pO2 VBG pH Sodium 133 L Potassium 5.7 H Chloride 93.1 L Carbon Dioxide 10 L BUN 43 H Creatinine 2.5 H Glucose 786 H* POC Glucose Hemoglobin A1c 8.9 H Lactic Acid Calcium 7.8 L Phosphorus TIBC Transferrin Ferritin AST Total Creatine Kinase 226 H Troponin T 0.033 H Total Protein Albumin Triglycerides 185 H Cholesterol 215 H LDL Cholesterol Direct 144 H Urine Creatinine Crossmatch 03/25/18 03/25/18 03/25/18 18:55 21:00 21:03 WBC RBC Hgb Hct MCV MCH MCHC RDW Plt Count Lymph % (Auto) Boyd % (Auto) Lymph # Boyd # Seg Neutrophils % Seg Neuts % (Manual) Lymphocytes % (Manual) Monocytes % (Manual) Seg Neutrophils # Lymphocytes # (Manual) Monocytes # (Manual) POC ABG pH POC ABG pCO2 POC ABG pO2 VBG pH Sodium 136 L Potassium 6.7 H* Chloride Carbon Dioxide 7 L* BUN 45 H Creatinine 2.6 H Glucose 879 H* POC Glucose > 500 H Hemoglobin A1c Lactic Acid Calcium 7.8 L Phosphorus 9.20 H TIBC Transferrin Ferritin AST Total Creatine Kinase Troponin T Total Protein Albumin Triglycerides Cholesterol LDL Cholesterol Direct Urine Creatinine Crossmatch 03/25/18 03/25/18 03/25/18 21:39 22:06 23:20 WBC RBC Hgb Hct MCV MCH MCHC RDW Plt Count Lymph % (Auto) Boyd % (Auto) Lymph # Boyd # Seg Neutrophils % Seg Neuts % (Manual) Lymphocytes % (Manual) Monocytes % (Manual) Seg Neutrophils # Lymphocytes # (Manual) Monocytes # (Manual) POC ABG pH 7.272 L POC ABG pCO2 14.2 L POC ABG pO2 263 H VBG pH Sodium Potassium Chloride Carbon Dioxide 7 L* BUN 47 H Creatinine 2.9 H Glucose 702 H* POC Glucose > 500 H Hemoglobin A1c Lactic Acid Calcium 7.6 L Phosphorus TIBC Transferrin Ferritin AST Total Creatine Kinase Troponin T Total Protein Albumin Triglycerides Cholesterol LDL Cholesterol Direct Urine Creatinine Crossmatch 03/25/18 03/26/18 03/26/18 23:20 00:17 01:08 WBC RBC Hgb Hct MCV MCH MCHC RDW Plt Count Lymph % (Auto) Boyd % (Auto) Lymph # Boyd # Seg Neutrophils % Seg Neuts % (Manual) Lymphocytes % (Manual) Monocytes % (Manual) Seg Neutrophils # Lymphocytes # (Manual) Monocytes # (Manual) POC ABG pH POC ABG pCO2 POC ABG pO2 VBG pH Sodium Potassium Chloride Carbon Dioxide BUN Creatinine Glucose POC Glucose > 500 H 447 H 484 H Hemoglobin A1c Lactic Acid Calcium Phosphorus TIBC Transferrin Ferritin AST Total Creatine Kinase Troponin T Total Protein Albumin Triglycerides Cholesterol LDL Cholesterol Direct Urine Creatinine Crossmatch 03/26/18 03/26/18 03/26/18 02:31 03:07 04:09 WBC RBC Hgb Hct MCV MCH MCHC RDW Plt Count Lymph % (Auto) Boyd % (Auto) Lymph # Boyd # Seg Neutrophils % Seg Neuts % (Manual) Lymphocytes % (Manual) Monocytes % (Manual) Seg Neutrophils # Lymphocytes # (Manual) Monocytes # (Manual) POC ABG pH POC ABG pCO2 POC ABG pO2 VBG pH Sodium Potassium Chloride Carbon Dioxide BUN Creatinine Glucose POC Glucose > 500 H 467 H 361 H Hemoglobin A1c Lactic Acid Calcium Phosphorus TIBC Transferrin Ferritin AST Total Creatine Kinase Troponin T Total Protein Albumin Triglycerides Cholesterol LDL Cholesterol Direct Urine Creatinine Crossmatch 03/26/18 03/26/18 03/26/18 04:25 05:24 06:19 WBC RBC Hgb Hct MCV MCH MCHC RDW Plt Count Lymph % (Auto) Boyd % (Auto) Lymph # Boyd # Seg Neutrophils % Seg Neuts % (Manual) Lymphocytes % (Manual) Monocytes % (Manual) Seg Neutrophils # Lymphocytes # (Manual) Monocytes # (Manual) POC ABG pH POC ABG pCO2 POC ABG pO2 VBG pH Sodium 150 H D Potassium 3.4 L D Chloride 118.3 H Carbon Dioxide 16 L D BUN 45 H Creatinine 2.7 H Glucose 278 H POC Glucose 306 H 188 H Hemoglobin A1c Lactic Acid Calcium 7.7 L Phosphorus TIBC Transferrin Ferritin AST Total Creatine Kinase Troponin T Total Protein Albumin Triglycerides Cholesterol LDL Cholesterol Direct Urine Creatinine Crossmatch 03/26/18 03/26/18 03/26/18 07:09 08:20 09:12 WBC RBC Hgb Hct MCV MCH MCHC RDW Plt Count Lymph % (Auto) Boyd % (Auto) Lymph # Boyd # Seg Neutrophils % Seg Neuts % (Manual) Lymphocytes % (Manual) Monocytes % (Manual) Seg Neutrophils # Lymphocytes # (Manual) Monocytes # (Manual) POC ABG pH 7.530 H POC ABG pCO2 22.0 L POC ABG pO2 147 H VBG pH Sodium Potassium Chloride Carbon Dioxide BUN Creatinine Glucose POC Glucose 148 H 170 H Hemoglobin A1c Lactic Acid Calcium Phosphorus TIBC Transferrin Ferritin AST Total Creatine Kinase Troponin T Total Protein Albumin Triglycerides Cholesterol LDL Cholesterol Direct Urine Creatinine Crossmatch 03/26/18 03/26/18 03/26/18 09:15 10:30 10:46 WBC RBC Hgb Hct MCV MCH MCHC RDW Plt Count Lymph % (Auto) Boyd % (Auto) Lymph # Boyd # Seg Neutrophils % Seg Neuts % (Manual) Lymphocytes % (Manual) Monocytes % (Manual) Seg Neutrophils # Lymphocytes # (Manual) Monocytes # (Manual) POC ABG pH POC ABG pCO2 POC ABG pO2 VBG pH Sodium 152 H Potassium 3.1 L Chloride 121.4 H Carbon Dioxide BUN 43 H Creatinine 2.6 H Glucose 105 H POC Glucose 177 H 125 H Hemoglobin A1c Lactic Acid Calcium 7.5 L Phosphorus TIBC Transferrin Ferritin AST Total Creatine Kinase Troponin T Total Protein Albumin Triglycerides Cholesterol LDL Cholesterol Direct Urine Creatinine Crossmatch 03/26/18 03/26/18 03/26/18 14:57 15:35 18:12 WBC RBC Hgb Hct MCV MCH MCHC RDW Plt Count Lymph % (Auto) Boyd % (Auto) Lymph # Boyd # Seg Neutrophils % Seg Neuts % (Manual) Lymphocytes % (Manual) Monocytes % (Manual) Seg Neutrophils # Lymphocytes # (Manual) Monocytes # (Manual) POC ABG pH POC ABG pCO2 POC ABG pO2 VBG pH Sodium 148 H Potassium Chloride 117.5 H Carbon Dioxide 18 L BUN 43 H Creatinine 2.5 H Glucose 135 H POC Glucose 159 H 245 H Hemoglobin A1c Lactic Acid Calcium 7.3 L Phosphorus TIBC Transferrin Ferritin AST Total Creatine Kinase Troponin T Total Protein Albumin Triglycerides Cholesterol LDL Cholesterol Direct Urine Creatinine Crossmatch 03/26/18 03/26/18 03/27/18 19:27 21:42 02:03 WBC RBC Hgb Hct MCV MCH MCHC RDW Plt Count Lymph % (Auto) Boyd % (Auto) Lymph # Boyd # Seg Neutrophils % Seg Neuts % (Manual) Lymphocytes % (Manual) Monocytes % (Manual) Seg Neutrophils # Lymphocytes # (Manual) Monocytes # (Manual) POC ABG pH POC ABG pCO2 POC ABG pO2 VBG pH Sodium Potassium Chloride 115.0 H Carbon Dioxide 20 L BUN 42 H Creatinine 2.4 H Glucose 221 H POC Glucose 261 H 254 H Hemoglobin A1c Lactic Acid Calcium 7.1 L Phosphorus TIBC Transferrin Ferritin AST Total Creatine Kinase Troponin T Total Protein Albumin Triglycerides Cholesterol LDL Cholesterol Direct Urine Creatinine Crossmatch 03/27/18 03/27/18 03/27/18 03:35 03:35 05:20 WBC 12.3 H RBC 3.05 L Hgb 8.3 L Hct 25.3 L D MCV 83 L MCH 27 L MCHC RDW Plt Count Lymph % (Auto) Boyd % (Auto) 8.6 H Lymph # Boyd # 1.1 H Seg Neutrophils % 76.5 H Seg Neuts % (Manual) Lymphocytes % (Manual) Monocytes % (Manual) Seg Neutrophils # 9.4 H Lymphocytes # (Manual) Monocytes # (Manual) POC ABG pH POC ABG pCO2 POC ABG pO2 VBG pH Sodium Potassium Chloride 112.6 H Carbon Dioxide BUN 36 H Creatinine 2.1 H Glucose 244 H POC Glucose 263 H Hemoglobin A1c Lactic Acid Calcium 7.1 L Phosphorus TIBC Transferrin Ferritin AST 44 H Total Creatine Kinase Troponin T Total Protein 5.1 L D Albumin 2.1 L Triglycerides Cholesterol LDL Cholesterol Direct Urine Creatinine Crossmatch 03/27/18 03/27/18 03/27/18 08:22 13:00 14:06 WBC RBC Hgb Hct MCV MCH MCHC RDW Plt Count Lymph % (Auto) Boyd % (Auto) Lymph # Boyd # Seg Neutrophils % Seg Neuts % (Manual) Lymphocytes % (Manual) Monocytes % (Manual) Seg Neutrophils # Lymphocytes # (Manual) Monocytes # (Manual) POC ABG pH POC ABG pCO2 34.7 L POC ABG pO2 VBG pH Sodium Potassium Chloride Carbon Dioxide BUN Creatinine Glucose POC Glucose 306 H 233 H Hemoglobin A1c Lactic Acid Calcium Phosphorus TIBC Transferrin Ferritin AST Total Creatine Kinase Troponin T Total Protein Albumin Triglycerides Cholesterol LDL Cholesterol Direct Urine Creatinine Crossmatch 03/27/18 03/27/18 03/27/18 16:15 18:11 21:44 WBC RBC Hgb Hct MCV MCH MCHC RDW Plt Count Lymph % (Auto) Boyd % (Auto) Lymph # Boyd # Seg Neutrophils % Seg Neuts % (Manual) Lymphocytes % (Manual) Monocytes % (Manual) Seg Neutrophils # Lymphocytes # (Manual) Monocytes # (Manual) POC ABG pH POC ABG pCO2 POC ABG pO2 VBG pH Sodium Potassium Chloride Carbon Dioxide BUN Creatinine Glucose POC Glucose 243 H 226 H 224 H Hemoglobin A1c Lactic Acid Calcium Phosphorus TIBC Transferrin Ferritin AST Total Creatine Kinase Troponin T Total Protein Albumin Triglycerides Cholesterol LDL Cholesterol Direct Urine Creatinine Crossmatch 03/28/18 03/28/18 03/28/18 02:07 04:35 04:35 WBC RBC Hgb Hct MCV MCH MCHC RDW Plt Count Lymph % (Auto) Boyd % (Auto) Lymph # Boyd # Seg Neutrophils % Seg Neuts % (Manual) Lymphocytes % (Manual) Monocytes % (Manual) Seg Neutrophils # Lymphocytes # (Manual) Monocytes # (Manual) POC ABG pH POC ABG pCO2 POC ABG pO2 VBG pH Sodium Potassium Chloride Carbon Dioxide BUN Creatinine Glucose POC Glucose 220 H Hemoglobin A1c Lactic Acid Calcium Phosphorus TIBC 115 L Transferrin 94 L Ferritin 412.1 H AST Total Creatine Kinase Troponin T Total Protein Albumin Triglycerides Cholesterol LDL Cholesterol Direct Urine Creatinine Crossmatch 03/28/18 03/28/18 03/28/18 05:27 09:52 10:59 WBC RBC 3.22 L Hgb 9.1 L Hct 26.8 L MCV 83 L MCH MCHC RDW Plt Count 134 L Lymph % (Auto) Boyd % (Auto) Lymph # Boyd # Seg Neutrophils % Seg Neuts % (Manual) Lymphocytes % (Manual) Monocytes % (Manual) Seg Neutrophils # Lymphocytes # (Manual) Monocytes # (Manual) POC ABG pH POC ABG pCO2 POC ABG pO2 VBG pH Sodium Potassium Chloride Carbon Dioxide BUN Creatinine Glucose POC Glucose 280 H 332 H Hemoglobin A1c Lactic Acid Calcium Phosphorus TIBC Transferrin Ferritin AST Total Creatine Kinase Troponin T Total Protein Albumin Triglycerides Cholesterol LDL Cholesterol Direct Urine Creatinine Crossmatch 03/28/18 03/28/18 03/28/18 10:59 14:39 17:47 WBC RBC Hgb Hct MCV MCH MCHC RDW Plt Count Lymph % (Auto) Boyd % (Auto) Lymph # Boyd # Seg Neutrophils % Seg Neuts % (Manual) Lymphocytes % (Manual) Monocytes % (Manual) Seg Neutrophils # Lymphocytes # (Manual) Monocytes # (Manual) POC ABG pH POC ABG pCO2 POC ABG pO2 VBG pH Sodium 136 L Potassium Chloride Carbon Dioxide BUN 29 H Creatinine Glucose 310 H POC Glucose 250 H 132 H Hemoglobin A1c Lactic Acid Calcium 7.0 L Phosphorus TIBC Transferrin Ferritin AST Total Creatine Kinase Troponin T Total Protein Albumin Triglycerides Cholesterol LDL Cholesterol Direct Urine Creatinine Crossmatch 03/29/18 03/29/18 03/29/18 01:49 04:23 05:45 WBC RBC 3.13 L Hgb 8.8 L Hct 25.8 L MCV 82 L MCH MCHC RDW 12.7 L Plt Count 132 L Lymph % (Auto) 10.8 L Boyd % (Auto) 9.1 H Lymph # 1.0 L Boyd # Seg Neutrophils % 79.1 H Seg Neuts % (Manual) Lymphocytes % (Manual) Monocytes % (Manual) Seg Neutrophils # Lymphocytes # (Manual) Monocytes # (Manual) POC ABG pH POC ABG pCO2 POC ABG pO2 VBG pH Sodium 134 L Potassium Chloride Carbon Dioxide BUN 27 H Creatinine Glucose 172 H POC Glucose 122 H Hemoglobin A1c Lactic Acid Calcium 7.1 L Phosphorus TIBC Transferrin Ferritin AST Total Creatine Kinase Troponin T Total Protein Albumin Triglycerides Cholesterol LDL Cholesterol Direct Urine Creatinine Crossmatch 03/29/18 03/29/18 03/29/18 05:57 09:19 13:09 WBC RBC Hgb Hct MCV MCH MCHC RDW Plt Count Lymph % (Auto) Boyd % (Auto) Lymph # Boyd # Seg Neutrophils % Seg Neuts % (Manual) Lymphocytes % (Manual) Monocytes % (Manual) Seg Neutrophils # Lymphocytes # (Manual) Monocytes # (Manual) POC ABG pH POC ABG pCO2 POC ABG pO2 VBG pH Sodium Potassium Chloride Carbon Dioxide BUN Creatinine Glucose POC Glucose 224 H 316 H 345 H Hemoglobin A1c Lactic Acid Calcium Phosphorus TIBC Transferrin Ferritin AST Total Creatine Kinase Troponin T Total Protein Albumin Triglycerides Cholesterol LDL Cholesterol Direct Urine Creatinine Crossmatch 03/29/18 03/29/18 03/29/18 16:27 22:26 22:36 WBC RBC Hgb Hct MCV MCH MCHC RDW Plt Count Lymph % (Auto) Boyd % (Auto) Lymph # Boyd # Seg Neutrophils % Seg Neuts % (Manual) Lymphocytes % (Manual) Monocytes % (Manual) Seg Neutrophils # Lymphocytes # (Manual) Monocytes # (Manual) POC ABG pH POC ABG pCO2 POC ABG pO2 VBG pH Sodium Potassium Chloride Carbon Dioxide BUN Creatinine Glucose POC Glucose 210 H < 40 L 172 H Hemoglobin A1c Lactic Acid Calcium Phosphorus TIBC Transferrin Ferritin AST Total Creatine Kinase Troponin T Total Protein Albumin Triglycerides Cholesterol LDL Cholesterol Direct Urine Creatinine Crossmatch 03/30/18 03/30/18 03/30/18 00:07 05:12 06:39 WBC RBC 2.95 L Hgb 8.3 L Hct 24.6 L MCV 83 L MCH MCHC RDW 12.9 L Plt Count Lymph % (Auto) Boyd % (Auto) 13.5 H Lymph # Boyd # 0.9 H Seg Neutrophils % Seg Neuts % (Manual) Lymphocytes % (Manual) Monocytes % (Manual) Seg Neutrophils # Lymphocytes # (Manual) Monocytes # (Manual) POC ABG pH POC ABG pCO2 POC ABG pO2 VBG pH Sodium Potassium Chloride Carbon Dioxide BUN Creatinine Glucose POC Glucose 69 L 213 H Hemoglobin A1c Lactic Acid Calcium Phosphorus TIBC Transferrin Ferritin AST Total Creatine Kinase Troponin T Total Protein Albumin Triglycerides Cholesterol LDL Cholesterol Direct Urine Creatinine Crossmatch 03/30/18 03/30/18 03/30/18 06:39 10:06 13:59 WBC RBC Hgb Hct MCV MCH MCHC RDW Plt Count Lymph % (Auto) Boyd % (Auto) Lymph # Boyd # Seg Neutrophils % Seg Neuts % (Manual) Lymphocytes % (Manual) Monocytes % (Manual) Seg Neutrophils # Lymphocytes # (Manual) Monocytes # (Manual) POC ABG pH POC ABG pCO2 POC ABG pO2 VBG pH Sodium 133 L Potassium 3.5 L D Chloride 95.6 L Carbon Dioxide BUN 34 H Creatinine Glucose 241 H POC Glucose 368 H 237 H Hemoglobin A1c Lactic Acid Calcium 7.3 L Phosphorus TIBC Transferrin Ferritin AST Total Creatine Kinase Troponin T Total Protein Albumin Triglycerides Cholesterol LDL Cholesterol Direct Urine Creatinine Crossmatch 03/30/18 03/30/18 03/30/18 16:39 20:47 21:30 WBC RBC Hgb Hct MCV MCH MCHC RDW Plt Count Lymph % (Auto) Boyd % (Auto) Lymph # Boyd # Seg Neutrophils % Seg Neuts % (Manual) Lymphocytes % (Manual) Monocytes % (Manual) Seg Neutrophils # Lymphocytes # (Manual) Monocytes # (Manual) POC ABG pH POC ABG pCO2 POC ABG pO2 VBG pH Sodium Potassium Chloride Carbon Dioxide BUN Creatinine Glucose POC Glucose 176 H 60 L 113 H Hemoglobin A1c Lactic Acid Calcium Phosphorus TIBC Transferrin Ferritin AST Total Creatine Kinase Troponin T Total Protein Albumin Triglycerides Cholesterol LDL Cholesterol Direct Urine Creatinine Crossmatch 03/31/18 03/31/18 03/31/18 02:07 06:45 07:24 WBC RBC 3.06 L Hgb 8.6 L Hct 25.3 L MCV 83 L MCH MCHC RDW 12.7 L Plt Count Lymph % (Auto) Boyd % (Auto) Lymph # Boyd # Seg Neutrophils % Seg Neuts % (Manual) 73.0 H Lymphocytes % (Manual) 6.0 L Monocytes % (Manual) 21.0 H Seg Neutrophils # Lymphocytes # (Manual) 0.4 L Monocytes # (Manual) 1.4 H POC ABG pH POC ABG pCO2 POC ABG pO2 VBG pH Sodium Potassium Chloride Carbon Dioxide BUN Creatinine Glucose POC Glucose 140 H 260 H Hemoglobin A1c Lactic Acid Calcium Phosphorus TIBC Transferrin Ferritin AST Total Creatine Kinase Troponin T Total Protein Albumin Triglycerides Cholesterol LDL Cholesterol Direct Urine Creatinine Crossmatch 03/31/18 03/31/18 03/31/18 07:24 11:51 13:08 WBC RBC Hgb Hct MCV MCH MCHC RDW Plt Count Lymph % (Auto) Boyd % (Auto) Lymph # Boyd # Seg Neutrophils % Seg Neuts % (Manual) Lymphocytes % (Manual) Monocytes % (Manual) Seg Neutrophils # Lymphocytes # (Manual) Monocytes # (Manual) POC ABG pH POC ABG pCO2 POC ABG pO2 VBG pH Sodium 134 L Potassium Chloride Carbon Dioxide BUN 36 H Creatinine 1.8 H Glucose 271 H POC Glucose > 500 H > 500 H Hemoglobin A1c Lactic Acid Calcium 7.3 L Phosphorus TIBC Transferrin Ferritin AST Total Creatine Kinase Troponin T Total Protein Albumin Triglycerides Cholesterol LDL Cholesterol Direct Urine Creatinine Crossmatch 03/31/18 03/31/18 03/31/18 14:00 16:15 16:29 WBC RBC Hgb Hct MCV MCH MCHC RDW Plt Count Lymph % (Auto) Boyd % (Auto) Lymph # Boyd # Seg Neutrophils % Seg Neuts % (Manual) Lymphocytes % (Manual) Monocytes % (Manual) Seg Neutrophils # Lymphocytes # (Manual) Monocytes # (Manual) POC ABG pH POC ABG pCO2 POC ABG pO2 VBG pH Sodium Potassium Chloride Carbon Dioxide BUN Creatinine Glucose POC Glucose > 500 H 405 H 424 H Hemoglobin A1c Lactic Acid Calcium Phosphorus TIBC Transferrin Ferritin AST Total Creatine Kinase Troponin T Total Protein Albumin Triglycerides Cholesterol LDL Cholesterol Direct Urine Creatinine Crossmatch 03/31/18 04/01/18 04/01/18 21:14 00:21 05:51 WBC RBC 2.55 L Hgb 7.1 L Hct 21.2 L MCV 83 L MCH MCHC RDW 12.5 L Plt Count Lymph % (Auto) Boyd % (Auto) Lymph # Boyd # Seg Neutrophils % Seg Neuts % (Manual) Lymphocytes % (Manual) Monocytes % (Manual) 22.0 H Seg Neutrophils # Lymphocytes # (Manual) Monocytes # (Manual) 1.1 H POC ABG pH POC ABG pCO2 POC ABG pO2 VBG pH Sodium Potassium Chloride Carbon Dioxide BUN Creatinine Glucose POC Glucose 393 H 384 H Hemoglobin A1c Lactic Acid Calcium Phosphorus TIBC Transferrin Ferritin AST Total Creatine Kinase Troponin T Total Protein Albumin Triglycerides Cholesterol LDL Cholesterol Direct Urine Creatinine Crossmatch 04/01/18 04/01/18 04/01/18 05:51 06:52 11:13 WBC RBC Hgb Hct MCV MCH MCHC RDW Plt Count Lymph % (Auto) Boyd % (Auto) Lymph # Boyd # Seg Neutrophils % Seg Neuts % (Manual) Lymphocytes % (Manual) Monocytes % (Manual) Seg Neutrophils # Lymphocytes # (Manual) Monocytes # (Manual) POC ABG pH POC ABG pCO2 POC ABG pO2 VBG pH Sodium Potassium Chloride Carbon Dioxide BUN 35 H Creatinine Glucose 120 H POC Glucose 114 H Hemoglobin A1c Lactic Acid Calcium 7.3 L Phosphorus TIBC Transferrin Ferritin AST Total Creatine Kinase Troponin T Total Protein Albumin Triglycerides Cholesterol LDL Cholesterol Direct Urine Creatinine Crossmatch See Detail 04/01/18 04/01/18 04/01/18 11:16 12:06 16:04 WBC RBC Hgb 7.3 L Hct 21.5 L MCV MCH MCHC RDW Plt Count Lymph % (Auto) Boyd % (Auto) Lymph # Boyd # Seg Neutrophils % Seg Neuts % (Manual) Lymphocytes % (Manual) Monocytes % (Manual) Seg Neutrophils # Lymphocytes # (Manual) Monocytes # (Manual) POC ABG pH POC ABG pCO2 POC ABG pO2 VBG pH Sodium Potassium Chloride Carbon Dioxide BUN Creatinine Glucose POC Glucose 223 H 225 H Hemoglobin A1c Lactic Acid Calcium Phosphorus TIBC Transferrin Ferritin AST Total Creatine Kinase Troponin T Total Protein Albumin Triglycerides Cholesterol LDL Cholesterol Direct Urine Creatinine Crossmatch 04/01/18 04/01/18 04/01/18 16:46 19:47 21:15 WBC RBC Hgb 7.7 L Hct 23.5 L MCV MCH MCHC RDW Plt Count Lymph % (Auto) Boyd % (Auto) Lymph # Boyd # Seg Neutrophils % Seg Neuts % (Manual) Lymphocytes % (Manual) Monocytes % (Manual) Seg Neutrophils # Lymphocytes # (Manual) Monocytes # (Manual) POC ABG pH POC ABG pCO2 POC ABG pO2 VBG pH Sodium Potassium Chloride Carbon Dioxide BUN Creatinine Glucose POC Glucose 219 H 380 H Hemoglobin A1c Lactic Acid Calcium Phosphorus TIBC Transferrin Ferritin AST Total Creatine Kinase Troponin T Total Protein Albumin Triglycerides Cholesterol LDL Cholesterol Direct Urine Creatinine Crossmatch 04/02/18 04/02/18 04/02/18 05:47 06:57 07:52 WBC RBC 2.80 L Hgb 7.7 L Hct 23.5 L MCV MCH MCHC RDW Plt Count Lymph % (Auto) Boyd % (Auto) Lymph # Boyd # Seg Neutrophils % Seg Neuts % (Manual) Lymphocytes % (Manual) Monocytes % (Manual) 25.0 H Seg Neutrophils # Lymphocytes # (Manual) 1.1 L Monocytes # (Manual) 1.3 H POC ABG pH POC ABG pCO2 POC ABG pO2 VBG pH Sodium Potassium Chloride Carbon Dioxide BUN Creatinine Glucose POC Glucose 49 L 111 H Hemoglobin A1c Lactic Acid Calcium Phosphorus TIBC Transferrin Ferritin AST Total Creatine Kinase Troponin T Total Protein Albumin Triglycerides Cholesterol LDL Cholesterol Direct Urine Creatinine Crossmatch 04/02/18 04/02/18 04/02/18 07:52 12:36 16:36 WBC RBC Hgb Hct MCV MCH MCHC RDW Plt Count Lymph % (Auto) Boyd % (Auto) Lymph # Boyd # Seg Neutrophils % Seg Neuts % (Manual) Lymphocytes % (Manual) Monocytes % (Manual) Seg Neutrophils # Lymphocytes # (Manual) Monocytes # (Manual) POC ABG pH POC ABG pCO2 POC ABG pO2 VBG pH Sodium Potassium Chloride Carbon Dioxide BUN 28 H Creatinine Glucose 115 H POC Glucose 259 H 297 H Hemoglobin A1c Lactic Acid Calcium 7.3 L Phosphorus TIBC Transferrin Ferritin AST Total Creatine Kinase Troponin T Total Protein Albumin Triglycerides Cholesterol LDL Cholesterol Direct Urine Creatinine Crossmatch 04/02/18 04/03/18 04/03/18 22:01 04:20 04:46 WBC RBC Hgb Hct MCV MCH MCHC RDW Plt Count Lymph % (Auto) Boyd % (Auto) Lymph # Boyd # Seg Neutrophils % Seg Neuts % (Manual) Lymphocytes % (Manual) Monocytes % (Manual) Seg Neutrophils # Lymphocytes # (Manual) Monocytes # (Manual) POC ABG pH POC ABG pCO2 POC ABG pO2 VBG pH Sodium Potassium Chloride Carbon Dioxide BUN Creatinine Glucose POC Glucose 206 H < 40 L 64 L Hemoglobin A1c Lactic Acid Calcium Phosphorus TIBC Transferrin Ferritin AST Total Creatine Kinase Troponin T Total Protein Albumin Triglycerides Cholesterol LDL Cholesterol Direct Urine Creatinine Crossmatch 04/03/18 04/03/18 04/03/18 05:46 05:46 05:57 WBC RBC 2.72 L Hgb 7.6 L Hct 22.4 L MCV 83 L MCH MCHC RDW Plt Count Lymph % (Auto) Boyd % (Auto) Lymph # Boyd # Seg Neutrophils % Seg Neuts % (Manual) Lymphocytes % (Manual) 13.0 L Monocytes % (Manual) 19.0 H Seg Neutrophils # Lymphocytes # (Manual) 0.9 L Monocytes # (Manual) 1.3 H POC ABG pH POC ABG pCO2 POC ABG pO2 VBG pH Sodium Potassium Chloride 110.7 H Carbon Dioxide BUN 24 H Creatinine Glucose 45 L POC Glucose < 40 L Hemoglobin A1c Lactic Acid Calcium 7.3 L Phosphorus TIBC Transferrin Ferritin AST Total Creatine Kinase Troponin T Total Protein Albumin Triglycerides Cholesterol LDL Cholesterol Direct Urine Creatinine Crossmatch 04/03/18 04/03/18 04/03/18 07:04 09:17 11:34 WBC RBC Hgb Hct MCV MCH MCHC RDW Plt Count Lymph % (Auto) Boyd % (Auto) Lymph # Boyd # Seg Neutrophils % Seg Neuts % (Manual) Lymphocytes % (Manual) Monocytes % (Manual) Seg Neutrophils # Lymphocytes # (Manual) Monocytes # (Manual) POC ABG pH POC ABG pCO2 POC ABG pO2 VBG pH Sodium Potassium Chloride Carbon Dioxide BUN Creatinine Glucose POC Glucose 44 L 107 H 196 H Hemoglobin A1c Lactic Acid Calcium Phosphorus TIBC Transferrin Ferritin AST Total Creatine Kinase Troponin T Total Protein Albumin Triglycerides Cholesterol LDL Cholesterol Direct Urine Creatinine Crossmatch 04/03/18 04/03/18 04/04/18 16:48 20:25 06:05 WBC RBC 2.49 L Hgb 6.9 L Hct 20.8 L MCV 83 L MCH MCHC RDW Plt Count Lymph % (Auto) Boyd % (Auto) Lymph # [place] # Seg Neutrophils % Seg Neuts % (Manual) Lymphocytes % (Manual) Monocytes % (Manual) 23.0 H Seg Neutrophils # Lymphocytes # (Manual) 0.7 L Monocytes # (Manual) 1.2 H POC ABG pH POC ABG pCO2 POC ABG pO2 VBG pH Sodium Potassium Chloride Carbon Dioxide BUN Creatinine Glucose POC Glucose 251 H 211 H Hemoglobin A1c Lactic Acid Calcium Phosphorus TIBC Transferrin Ferritin AST Total Creatine Kinase Troponin T Total Protein Albumin Triglycerides Cholesterol LDL Cholesterol Direct Urine Creatinine Crossmatch 04/04/18 04/04/18 04/04/18 06:05 06:06 20:14 WBC RBC Hgb Hct MCV MCH MCHC RDW Plt Count Lymph % (Auto) Boyd % (Auto) Lymph # [place] # Seg Neutrophils % Seg Neuts % (Manual) Lymphocytes % (Manual) Monocytes % (Manual) Seg Neutrophils # Lymphocytes # (Manual) Monocytes # (Manual) POC ABG pH POC ABG pCO2 POC ABG pO2 VBG pH Sodium Potassium Chloride 109.8 H Carbon Dioxide BUN 22 H Creatinine 1.7 H Glucose 260 H POC Glucose 312 H Hemoglobin A1c Lactic Acid Calcium 7.2 L Phosphorus TIBC Transferrin Ferritin AST Total Creatine Kinase Troponin T Total Protein Albumin Triglycerides Cholesterol LDL Cholesterol Direct Urine Creatinine Crossmatch See Detail 04/04/18 04/05/18 04/05/18 22:23 06:10 06:10 WBC RBC 2.97 L Hgb 8.6 L Hct 25.0 L MCV MCH MCHC RDW Plt Count Lymph % (Auto) Boyd % (Auto) 15.9 H Lymph # Boyd # 1.2 H Seg Neutrophils % Seg Neuts % (Manual) Lymphocytes % (Manual) Monocytes % (Manual) Seg Neutrophils # Lymphocytes # (Manual) Monocytes # (Manual) POC ABG pH POC ABG pCO2 POC ABG pO2 VBG pH Sodium Potassium Chloride 108.4 H Carbon Dioxide 20 L BUN Creatinine 1.9 H Glucose 42 L POC Glucose 116 H Hemoglobin A1c Lactic Acid Calcium 7.3 L Phosphorus TIBC Transferrin Ferritin AST Total Creatine Kinase Troponin T Total Protein 5.7 L Albumin 2.3 L Triglycerides Cholesterol LDL Cholesterol Direct Urine Creatinine Crossmatch 04/05/18 04/05/18 04/05/18 06:18 06:20 12:17 WBC RBC Hgb Hct MCV MCH MCHC RDW Plt Count Lymph % (Auto) Boyd % (Auto) Lymph # Boyd # Seg Neutrophils % Seg Neuts % (Manual) Lymphocytes % (Manual) Monocytes % (Manual) Seg Neutrophils # Lymphocytes # (Manual) Monocytes # (Manual) POC ABG pH POC ABG pCO2 POC ABG pO2 VBG pH Sodium Potassium Chloride Carbon Dioxide BUN Creatinine Glucose POC Glucose 44 L 123 H Hemoglobin A1c Lactic Acid Calcium Phosphorus TIBC Transferrin Ferritin AST Total Creatine Kinase Troponin T Total Protein Albumin Triglycerides Cholesterol LDL Cholesterol Direct Urine Creatinine 112.0 H Crossmatch 04/05/18 16:33 WBC RBC Hgb Hct MCV MCH MCHC RDW Plt Count Lymph % (Auto) Boyd % (Auto) Lymph # [place] # Seg Neutrophils % Seg Neuts % (Manual) Lymphocytes % (Manual) Monocytes % (Manual) Seg Neutrophils # Lymphocytes # (Manual) Monocytes # (Manual) POC ABG pH POC ABG pCO2 POC ABG pO2 VBG pH Sodium Potassium Chloride Carbon Dioxide BUN Creatinine Glucose POC Glucose 268 H Hemoglobin A1c Lactic Acid Calcium Phosphorus TIBC Transferrin Ferritin AST Total Creatine Kinase Troponin T Total Protein Albumin Triglycerides Cholesterol LDL Cholesterol Direct Urine Creatinine Crossmatch Allied health notes reviewed: nursing
--- NOTE | 2018-04-05 20:19 | Progress Note ---
Assessment and Plan Assessment and plan: --Severe anemia; mild drop in H&H Received total 2 units of PRBC, HB 8.6 no external evidence of bleeding; stool guaiac-negative GI recommended out patient workup, --Bilateral upper extremity superficial venous thrombosis/cellulitis Significant improvement of this., Patient advised to elevated dependent With edema, cellulitis and blisters, Elevate the limb Empiric antibiotics wound care, vascular evaluated Extremity venous Doppler negative for DVT. --Labile blood sugars; patient noncompliant with diet [place] sliding scale coverage and ADA diet and long-acting insulin --DKA (diabetic ketoacidoses); resolved Uncontrolled blood sugars, non-complaints, Accu-Cheks, insulin, ADA diet --Acute respiratory failure; saturating well on nasal cannula oxygen s/p ventilator management and support, extubated 03/28 Continued nebs, evaluation for home oxygen at discharge --BELKIS (acute kidney injury)secondary to severe dehydration Due to ATN, worsening of renal Function --Severe hypoalbuminemia; severe malnutrition Nutrition consults, supportive care --Metabolic acidosis due to DKA and renal failure Supportive care --Hypertension,moderate control Continue current antihypertensives and when necessary medications --DVT prophylaxis Heparin subcutaneously 5000 units every 8 hours Plan of care reviewed with the patient and his nurse Closely monitor blood sugars Possible home health nurse for disease monitoring at discharge Possible discharge in 1-2 days if stable History Interval history: Patient seen and examined medical records reviewed No new events reported Patient that she was sent by Non-competent Today patient did not eat any breakfast, the breakfast tray untouched at the bedside Received blood transfusion yesterday, significant improvement of H&H Hospitalist Physical - Constitutional Vitals: Temp Pulse Resp BP Pulse Ox 98.4 F 88 18 168/65 96 04/05/18 19:50 04/05/18 19:50 04/05/18 19:50 04/05/18 19:50 04/05/18 19:50 General appearance: Present: no acute distress, well-nourished, obese - EENT Eyes: Present: PERRL, EOM intact - Neck Neck: Present: supple, normal ROM - Respiratory Respiratory effort: normal Respiratory: bilateral: diminished, negative: rales, rhonchi, wheezing - Cardiovascular Rhythm: regular Heart Sounds: Present: S1 & S2 - Extremities Extremities: no ischemia, No edema - Abdominal General gastrointestinal: soft, non-tender, non-distended, normal bowel sounds - Integumentary Integumentary: Present: clear, warm - Psychiatric Psychiatric: appropriate mood/affect, cooperative - Neurologic Neurologic: CNII-XII intact, moves all extremities Results - Labs CBC & Chem 7: 04/05/18 06:10 04/05/18 06:10 Labs: Laboratory Last Values WBC 7.4 K/mm3 (4.5-11.0) 04/05/18 06:10 RBC 2.97 M/mm3 (3.65-5.03) L 04/05/18 06:10 Hgb 8.6 gm/dl (11.8-15.2) L 04/05/18 06:10 Hct 25.0 % (35.5-45.6) L 04/05/18 06:10 MCV 84 fl (84-94) 04/05/18 06:10 MCH 29 pg (28-32) 04/05/18 06:10 MCHC 34 % (32-34) 04/05/18 06:10 RDW 14.1 % (13.2-15.2) 04/05/18 06:10 Plt Count 392 K/mm3 (140-440) 04/05/18 06:10 Lymph % (Auto) 15.9 % (13.4-35.0) 04/05/18 06:10 [place] % (Auto) 15.9 % (0.0-7.3) H 04/05/18 06:10 Eos % (Auto) 2.1 % (0.0-4.3) 04/05/18 06:10 Baso % (Auto) 0.8 % (0.0-1.8) 04/05/18 06:10 Lymph # 1.2 K/mm3 (1.2-5.4) 04/05/18 06:10 [place] # 1.2 K/mm3 (0.0-0.8) H 04/05/18 06:10 Eos # 0.2 K/mm3 (0.0-0.4) 04/05/18 06:10 Baso # 0.1 K/mm3 (0.0-0.1) 04/05/18 06:10 Add Manual Diff Complete 04/04/18 06:05 Total Counted 100 04/04/18 06:05 Seg Neutrophils % 65.3 % (40.0-70.0) 04/05/18 06:10 Seg Neuts % (Manual) 55.0 % (40.0-70.0) 04/04/18 06:05 Band Neutrophils % 2.0 % 04/04/18 06:05 Lymphocytes % (Manual) 14.0 % (13.4-35.0) 04/04/18 06:05 Reactive Lymphs % (Man) 0 % 04/04/18 06:05 Monocytes % (Manual) 23.0 % (0.0-7.3) H 04/04/18 06:05 Eosinophils % (Manual) 4.0 % (0.0-4.3) 04/04/18 06:05 Basophils % (Manual) 0 % (0.0-1.8) 04/04/18 06:05 Metamyelocytes % 2.0 % 04/04/18 06:05 Myelocytes % 0 % 04/04/18 06:05 Promyelocytes % 0 % 04/04/18 06:05 Blast Cells % 0 % 04/04/18 06:05 Nucleated RBC % Not Reportable 04/04/18 06:05 Seg Neutrophils # 4.8 K/mm3 (1.8-7.7) 04/05/18 06:10 Seg Neutrophils # Man 2.9 K/mm3 (1.8-7.7) 04/04/18 06:05 Band Neutrophils # 0.1 K/mm3 04/04/18 06:05 Lymphocytes # (Manual) 0.7 K/mm3 (1.2-5.4) L 04/04/18 06:05 Abs React Lymphs (Man) 0.0 K/mm3 04/04/18 06:05 Monocytes # (Manual) 1.2 K/mm3 (0.0-0.8) H 04/04/18 06:05 Eosinophils # (Manual) 0.2 K/mm3 (0.0-0.4) 04/04/18 06:05 Basophils # (Manual) 0.0 K/mm3 (0.0-0.1) 04/04/18 06:05 Metamyelocytes # 0.1 K/mm3 04/04/18 06:05 Myelocytes # 0.0 K/mm3 04/04/18 06:05 Promyelocytes # 0.0 K/mm3 04/04/18 06:05 Blast Cells # 0.0 K/mm3 04/04/18 06:05 WBC Morphology Not Reportable 04/04/18 06:05 Hypersegmented Neuts Not Reportable 04/04/18 06:05 Hyposegmented Neuts Not Reportable 04/04/18 06:05 Hypogranular Neuts Not Reportable 04/04/18 06:05 Smudge Cells Not Reportable 04/04/18 06:05 Toxic Granulation Not Reportable 04/04/18 06:05 Toxic Vacuolation Not Reportable 04/04/18 06:05 Dohle Bodies Not Reportable 04/04/18 06:05 Pelger-Huet Anomaly Not Reportable 04/04/18 06:05 Loi Rods Not Reportable 04/04/18 06:05 Platelet Estimate Appears normal 04/04/18 06:05 Clumped Platelets Not Reportable 04/04/18 06:05 Plt Clumps, EDTA Not Reportable 04/04/18 06:05 Large Platelets Not Reportable 04/04/18 06:05 Giant Platelets Not Reportable 04/04/18 06:05 Platelet Satelliting Not Reportable 04/04/18 06:05 Plt Morphology Comment Not Reportable 04/04/18 06:05 RBC Morphology Not Reportable 04/04/18 06:05 Dimorphic RBCs Not Reportable 04/04/18 06:05 Polychromasia Not Reportable 04/04/18 06:05 Hypochromasia Few 04/04/18 06:05 Poikilocytosis Not Reportable 04/04/18 06:05 Anisocytosis 1+ 04/04/18 06:05 Microcytosis Not Reportable 04/04/18 06:05 Macrocytosis Not Reportable 04/04/18 06:05 Spherocytes Not Reportable 04/04/18 06:05 Pappenheimer Bodies Not Reportable 04/04/18 06:05 Sickle Cells Not Reportable 04/04/18 06:05 Target Cells Not Reportable 04/04/18 06:05 Tear Drop Cells Not Reportable 04/04/18 06:05 Ovalocytes Not Reportable 04/04/18 06:05 Helmet Cells Not Reportable 04/04/18 06:05 [place] Bodies Not Reportable 04/04/18 06:05 [place] Rings Not Reportable 04/04/18 06:05 [place] Cells Not Reportable 04/04/18 06:05 Bite Cells Not Reportable 04/04/18 06:05 Crenated Cell Not Reportable 04/04/18 06:05 Elliptocytes Not Reportable 04/04/18 06:05 Acanthocytes (Spur) Not Reportable 04/04/18 06:05 Rouleaux Not Reportable 04/04/18 06:05 Hemoglobin C Crystals Not Reportable 04/04/18 06:05 Schistocytes Not Reportable 04/04/18 06:05 Malaria parasites Not Reportable 04/04/18 06:05 Lev Bodies Not Reportable 04/04/18 06:05 Hem Pathologist Commnt No 04/04/18 06:05 POC ABG pH 7.405 (7.35-7.45) 03/28/18 03:49 POC ABG pCO2 38.6 (35-45) 03/28/18 03:49 POC ABG pO2 102 (80-105) 03/28/18 03:49 POC ABG HCO3 24.2 03/28/18 03:49 POC ABG Total CO2 25 03/28/18 03:49 POC ABG O2 Sat 98 03/28/18 03:49 POC ABG Base Excess 0 03/28/18 03:49 VBG pH 7.000 (7.320-7.420) L* 03/25/18 14:41 FiO2 25 % 03/28/18 03:49 Sodium 141 mmol/L (137-145) 04/05/18 06:10 Potassium 3.7 mmol/L (3.6-5.0) 04/05/18 06:10 Chloride 108.4 mmol/L (98-107) H 04/05/18 06:10 Carbon Dioxide 20 mmol/L (22-30) L 04/05/18 06:10 Anion Gap 16 mmol/L 04/05/18 06:10 BUN 20 mg/dL (9-20) 04/05/18 06:10 Creatinine 1.9 mg/dL (0.8-1.5) H 04/05/18 06:10 Estimated GFR 45 ml/min 04/05/18 06:10 BUN/Creatinine Ratio 11 % 04/05/18 06:10 Glucose 42 mg/dL (75-100) L 04/05/18 06:10 POC Glucose 268 (70-105) H 04/05/18 16:33 Hemoglobin A1c 8.9 % (4-6) H 03/25/18 18:55 Lactic Acid 1.80 mmol/L (0.7-2.0) 03/26/18 04:25 Calcium 7.3 mg/dL (8.4-10.2) L 04/05/18 06:10 Phosphorus 3.70 mg/dL (2.5-4.5) 04/03/18 05:46 Magnesium 2.00 mg/dL (1.7-2.3) 04/05/18 06:10 Iron 54 ug/dL (49-181) 03/28/18 04:35 TIBC 115 mcg/dL (250-450) L 03/28/18 04:35 Transferrin 94 mg/dl (180-329) L 03/28/18 04:35 Ferritin 412.1 ng/mL (13.0-400.0) H 03/28/18 04:35 Total Bilirubin 0.30 mg/dL (0.1-1.2) 04/05/18 06:10 Direct Bilirubin < 0.2 mg/dL (0-0.2) 03/25/18 14:08 Indirect Bilirubin 0.1 mg/dL 03/25/18 14:08 AST 30 units/L (5-40) 04/05/18 06:10 ALT 25 units/L (7-56) 04/05/18 06:10 Alkaline Phosphatase 75 units/L (35-129) 04/05/18 06:10 Total Creatine Kinase 226 units/L (55-170) H 03/25/18 18:09 CK-MB (CK-2) 3.7 ng/mL (0.0-4.0) 03/25/18 18:09 CK-MB (CK-2) Rel Index 1.6 (0-4) 03/25/18 18:09 Troponin T 0.033 ng/mL (0.00-0.029) H 03/25/18 18:09 Total Protein 5.7 g/dL (6.3-8.2) L 04/05/18 06:10 Albumin 2.3 g/dL (3.9-5) L 04/05/18 06:10 Albumin/Globulin Ratio 0.7 % 04/05/18 06:10 Triglycerides 185 mg/dL (2-149) H 03/25/18 18:09 Cholesterol 215 mg/dL (50-199) H 03/25/18 18:09 LDL Cholesterol Direct 144 mg/dL (50-130) H 03/25/18 18:09 HDL Cholesterol 48 mg/dL (40-59) 03/25/18 18:09 Cholesterol/HDL Ratio 4.47 % 03/25/18 18:09 Urine Color Yellow (Yellow) 04/05/18 06:18 Urine Turbidity Clear (Clear) 04/05/18 06:18 Urine pH 5.0 (5.0-7.0) 04/05/18 06:18 Ur Specific [place] 1.013 (1.003-1.030) 04/05/18 06:18 Urine Protein >500 mg/dL (Negative) 04/05/18 06:18 Urine Glucose (UA) Neg mg/dL (Negative) 04/05/18 06:18 Urine Ketones Neg mg/dL (Negative) 04/05/18 06:18 Urine Blood Sm (Negative) 04/05/18 06:18 Urine Nitrite Neg (Negative) 04/05/18 06:18 Urine Bilirubin Neg (Negative) 04/05/18 06:18 Urine Urobilinogen < 2.0 mg/dL (<2.0) 04/05/18 06:18 Ur Leukocyte Esterase Neg (Negative) 04/05/18 06:18 Urine WBC (Auto) 3.0 /HPF (0.0-6.0) 04/05/18 06:18 Urine RBC (Auto) 2.0 /HPF (0.0-6.0) 04/05/18 06:18 Urine Bacteria (Auto) 1+ /HPF (Negative) 03/25/18 14:00 Uric Acid Crystals 2+ 04/05/18 06:18 Urine Mucus Few /HPF 04/05/18 06:18 Urine Yeast (Budding) 1+ /HPF 04/05/18 06:18 Urine Creatinine 112.0 mg/dL (0.1-20.0) H 04/05/18 06:18 Urine Sodium 39 mmol/L 04/05/18 06:18 Urine Urea Nitrogen 419 04/05/18 06:18 Urine Opiates Screen Presumptive negative 03/25/18 14:19 Urine Methadone Screen Presumptive negative 03/25/18 14:19 Ur Barbiturates Screen Presumptive negative 03/25/18 14:19 Ur Phencyclidine Scrn Presumptive negative 03/25/18 14:19 Ur Amphetamines Screen Presumptive negative 03/25/18 14:19 U Benzodiazepines Scrn Presumptive negative 03/25/18 14:19 Urine Cocaine Screen Presumptive negative 03/25/18 14:19 U Marijuana (THC) Screen Presumptive negative 03/25/18 14:19 Drugs of Abuse Note Disclamer 03/25/18 14:19 Blood Type O POSITIVE 04/04/18 20:14 Antibody Screen Negative 04/04/18 20:14 Crossmatch See Detail 04/04/18 20:14
[2018-04-05] MEDS: LOVENOX SUB-Q SCH (21:15)
[2018-04-05] MEDS: ALBURX 25% (ALBUMIN) IV SCH (21:17)
[2018-04-06] MEDS: APRESOLINE PO SCH ×6 (05:45→22:22)
[2018-04-06] MEDS: ZOSYN/NS 4.5GM/100ML 4.5 GM/100 ML VIAL IV SCH ×3 (05:46→22:18)
[2018-04-06] MEDS: D50W (25GM) Syringe IV PRN (07:08)
[2018-04-06] MEDS: ALBURX 25% (ALBUMIN) IV SCH ×3 (07:10→22:18)
[2018-04-06] MEDS: HumuLIN R SUB-Q SCH ×4 (07:58→22:33)
--- NOTE | 2018-04-06 09:05 | Progress Note ---
Assessment and Plan Assessment and plan: --Labile blood sugars; patient noncompliant with diet Accu-Chek sliding scale coverage and ADA diet and long-acting insulin[only when patient eats food] --DKA (diabetic ketoacidoses); resolved Uncontrolled blood sugars, non-complaints, Accu-Cheks, insulin, ADA diet --anemia; mild drop in H&H Received total 2 units of PRBC, HB 8.6 stool guaiac-negative, GI recommended out patient workup, --Bilateral upper extremity superficial venous thrombosis/cellulitis Significant improvement ,cellulitis and blisters, Elevate the limb Empiric antibiotics wound care, vascular evaluated Lower Extremity venous Doppler negative for DVT. --Acute respiratory failure; saturating well on nasal cannula oxygen s/p ventilator management and support, extubated 03/28 Continued nebs, evaluation for home oxygen at discharge --BELKIS (acute kidney injury)secondary to severe dehydration Due to ATN, worsening of renal Function --Severe hypoalbuminemia; severe malnutrition Nutrition consults, albumin infusions, supportive care --Hypertension,moderate control Continue current antihypertensives and when necessary medications --Depression; consult psych, patient denies suicidal thoughts or ideation --DVT prophylaxis Heparin subcutaneously 5000 units every 8 hours Plan of care reviewed with the patient and his nurse Closely monitor blood sugars Possible home health nurse for disease monitoring at discharge Possible discharge in 1-2 days if stable History Interval history: Patient seen and examined medical records reviewed Noncompliant with diet, Sugars are labile Patient feels better no new complaints Denies chest pain or shortness of breath Denies nausea vomiting Vital signs reviewed Hospitalist Physical - Constitutional Vitals: Temp Pulse Resp BP Pulse Ox 98.5 F 84 18 196/92 98 04/06/18 05:14 04/06/18 05:45 04/06/18 05:14 04/06/18 05:45 04/06/18 05:14 General appearance: Present: no acute distress, well-nourished, obese - EENT Eyes: Present: PERRL, EOM intact - Neck Neck: Present: supple, normal ROM - Respiratory Respiratory effort: normal Respiratory: bilateral: diminished, negative: rales, rhonchi, wheezing - Cardiovascular Rhythm: regular Heart Sounds: Present: S1 & S2 - Extremities Extremities: no ischemia, No edema - Abdominal General gastrointestinal: soft, non-tender, non-distended, normal bowel sounds - Integumentary Integumentary: Present: clear, warm - Psychiatric Psychiatric: appropriate mood/affect, cooperative - Neurologic Neurologic: CNII-XII intact, moves all extremities Results - Labs CBC & Chem 7: 04/05/18 06:10 04/05/18 06:10 Labs: Laboratory Last Values WBC 7.4 K/mm3 (4.5-11.0) 04/05/18 06:10 RBC 2.97 M/mm3 (3.65-5.03) L 04/05/18 06:10 Hgb 8.6 gm/dl (11.8-15.2) L 04/05/18 06:10 Hct 25.0 % (35.5-45.6) L 04/05/18 06:10 MCV 84 fl (84-94) 04/05/18 06:10 MCH 29 pg (28-32) 04/05/18 06:10 MCHC 34 % (32-34) 04/05/18 06:10 RDW 14.1 % (13.2-15.2) 04/05/18 06:10 Plt Count 392 K/mm3 (140-440) 04/05/18 06:10 Lymph % (Auto) 15.9 % (13.4-35.0) 04/05/18 06:10 [place] % (Auto) 15.9 % (0.0-7.3) H 04/05/18 06:10 Eos % (Auto) 2.1 % (0.0-4.3) 04/05/18 06:10 Baso % (Auto) 0.8 % (0.0-1.8) 04/05/18 06:10 Lymph # 1.2 K/mm3 (1.2-5.4) 04/05/18 06:10 [place] # 1.2 K/mm3 (0.0-0.8) H 04/05/18 06:10 Eos # 0.2 K/mm3 (0.0-0.4) 04/05/18 06:10 Baso # 0.1 K/mm3 (0.0-0.1) 04/05/18 06:10 Add Manual Diff Complete 04/04/18 06:05 Total Counted 100 04/04/18 06:05 Seg Neutrophils % 65.3 % (40.0-70.0) 04/05/18 06:10 Seg Neuts % (Manual) 55.0 % (40.0-70.0) 04/04/18 06:05 Band Neutrophils % 2.0 % 04/04/18 06:05 Lymphocytes % (Manual) 14.0 % (13.4-35.0) 04/04/18 06:05 Reactive Lymphs % (Man) 0 % 04/04/18 06:05 Monocytes % (Manual) 23.0 % (0.0-7.3) H 04/04/18 06:05 Eosinophils % (Manual) 4.0 % (0.0-4.3) 04/04/18 06:05 Basophils % (Manual) 0 % (0.0-1.8) 04/04/18 06:05 Metamyelocytes % 2.0 % 04/04/18 06:05 Myelocytes % 0 % 04/04/18 06:05 Promyelocytes % 0 % 04/04/18 06:05 Blast Cells % 0 % 04/04/18 06:05 Nucleated RBC % Not Reportable 04/04/18 06:05 Seg Neutrophils # 4.8 K/mm3 (1.8-7.7) 04/05/18 06:10 Seg Neutrophils # Man 2.9 K/mm3 (1.8-7.7) 04/04/18 06:05 Band Neutrophils # 0.1 K/mm3 04/04/18 06:05 Lymphocytes # (Manual) 0.7 K/mm3 (1.2-5.4) L 04/04/18 06:05 Abs React Lymphs (Man) 0.0 K/mm3 04/04/18 06:05 Monocytes # (Manual) 1.2 K/mm3 (0.0-0.8) H 04/04/18 06:05 Eosinophils # (Manual) 0.2 K/mm3 (0.0-0.4) 04/04/18 06:05 Basophils # (Manual) 0.0 K/mm3 (0.0-0.1) 04/04/18 06:05 Metamyelocytes # 0.1 K/mm3 04/04/18 06:05 Myelocytes # 0.0 K/mm3 04/04/18 06:05 Promyelocytes # 0.0 K/mm3 04/04/18 06:05 Blast Cells # 0.0 K/mm3 04/04/18 06:05 WBC Morphology Not Reportable 04/04/18 06:05 Hypersegmented Neuts Not Reportable 04/04/18 06:05 Hyposegmented Neuts Not Reportable 04/04/18 06:05 Hypogranular Neuts Not Reportable 04/04/18 06:05 Smudge Cells Not Reportable 04/04/18 06:05 Toxic Granulation Not Reportable 04/04/18 06:05 Toxic Vacuolation Not Reportable 04/04/18 06:05 Dohle Bodies Not Reportable 04/04/18 06:05 [place] Anomaly Not Reportable 04/04/18 06:05 Loi Rods Not Reportable 04/04/18 06:05 Platelet Estimate Appears normal 04/04/18 06:05 Clumped Platelets Not Reportable 04/04/18 06:05 Plt Clumps, EDTA Not Reportable 04/04/18 06:05 Large Platelets Not Reportable 04/04/18 06:05 Giant Platelets Not Reportable 04/04/18 06:05 Platelet Satelliting Not Reportable 04/04/18 06:05 Plt Morphology Comment Not Reportable 04/04/18 06:05 RBC Morphology Not Reportable 04/04/18 06:05 Dimorphic RBCs Not Reportable 04/04/18 06:05 Polychromasia Not Reportable 04/04/18 06:05 Hypochromasia Few 04/04/18 06:05 Poikilocytosis Not Reportable 04/04/18 06:05 Anisocytosis 1+ 04/04/18 06:05 Microcytosis Not Reportable 04/04/18 06:05 Macrocytosis Not Reportable 04/04/18 06:05 Spherocytes Not Reportable 04/04/18 06:05 Pappenheimer Bodies Not Reportable 04/04/18 06:05 Sickle Cells Not Reportable 04/04/18 06:05 Target Cells Not Reportable 04/04/18 06:05 Tear Drop Cells Not Reportable 04/04/18 06:05 Ovalocytes Not Reportable 04/04/18 06:05 Helmet Cells Not Reportable 04/04/18 06:05 [place] Bodies Not Reportable 04/04/18 06:05 [place] Rings Not Reportable 04/04/18 06:05 [place] Cells Not Reportable 04/04/18 06:05 Bite Cells Not Reportable 04/04/18 06:05 Crenated Cell Not Reportable 04/04/18 06:05 Elliptocytes Not Reportable 04/04/18 06:05 Acanthocytes (Spur) Not Reportable 04/04/18 06:05 Rouleaux Not Reportable 04/04/18 06:05 Hemoglobin C Crystals Not Reportable 04/04/18 06:05 Schistocytes Not Reportable 04/04/18 06:05 Malaria parasites Not Reportable 04/04/18 06:05 Lev Bodies Not Reportable 04/04/18 06:05 Hem Pathologist Commnt No 04/04/18 06:05 POC ABG pH 7.405 (7.35-7.45) 03/28/18 03:49 POC ABG pCO2 38.6 (35-45) 03/28/18 03:49 POC ABG pO2 102 (80-105) 03/28/18 03:49 POC ABG HCO3 24.2 03/28/18 03:49 POC ABG Total CO2 25 03/28/18 03:49 POC ABG O2 Sat 98 03/28/18 03:49 POC ABG Base Excess 0 03/28/18 03:49 VBG pH 7.000 (7.320-7.420) L* 03/25/18 14:41 FiO2 25 % 03/28/18 03:49 Sodium 141 mmol/L (137-145) 04/05/18 06:10 Potassium 3.7 mmol/L (3.6-5.0) 04/05/18 06:10 Chloride 108.4 mmol/L (98-107) H 04/05/18 06:10 Carbon Dioxide 20 mmol/L (22-30) L 04/05/18 06:10 Anion Gap 16 mmol/L 04/05/18 06:10 BUN 20 mg/dL (9-20) 04/05/18 06:10 Creatinine 1.9 mg/dL (0.8-1.5) H 04/05/18 06:10 Estimated GFR 45 ml/min 04/05/18 06:10 BUN/Creatinine Ratio 11 % 04/05/18 06:10 Glucose 42 mg/dL (75-100) L 04/05/18 06:10 POC Glucose 42 (70-105) L 04/06/18 07:06 Hemoglobin A1c 8.9 % (4-6) H 03/25/18 18:55 Lactic Acid 1.80 mmol/L (0.7-2.0) 03/26/18 04:25 Calcium 7.3 mg/dL (8.4-10.2) L 04/05/18 06:10 Phosphorus 3.70 mg/dL (2.5-4.5) 04/03/18 05:46 Magnesium 2.00 mg/dL (1.7-2.3) 04/05/18 06:10 Iron 54 ug/dL (49-181) 03/28/18 04:35 TIBC 115 mcg/dL (250-450) L 03/28/18 04:35 Transferrin 94 mg/dl (180-329) L 03/28/18 04:35 Ferritin 412.1 ng/mL (13.0-400.0) H 03/28/18 04:35 Total Bilirubin 0.30 mg/dL (0.1-1.2) 04/05/18 06:10 Direct Bilirubin < 0.2 mg/dL (0-0.2) 03/25/18 14:08 Indirect Bilirubin 0.1 mg/dL 03/25/18 14:08 AST 30 units/L (5-40) 04/05/18 06:10 ALT 25 units/L (7-56) 04/05/18 06:10 Alkaline Phosphatase 75 units/L (35-129) 04/05/18 06:10 Total Creatine Kinase 226 units/L (55-170) H 03/25/18 18:09 CK-MB (CK-2) 3.7 ng/mL (0.0-4.0) 03/25/18 18:09 CK-MB (CK-2) Rel Index 1.6 (0-4) 03/25/18 18:09 Troponin T 0.033 ng/mL (0.00-0.029) H 03/25/18 18:09 Total Protein 5.7 g/dL (6.3-8.2) L 04/05/18 06:10 Albumin 2.3 g/dL (3.9-5) L 04/05/18 06:10 Albumin/Globulin Ratio 0.7 % 04/05/18 06:10 Triglycerides 185 mg/dL (2-149) H 03/25/18 18:09 Cholesterol 215 mg/dL (50-199) H 03/25/18 18:09 LDL Cholesterol Direct 144 mg/dL (50-130) H 03/25/18 18:09 HDL Cholesterol 48 mg/dL (40-59) 03/25/18 18:09 Cholesterol/HDL Ratio 4.47 % 03/25/18 18:09 Urine Color Yellow (Yellow) 04/05/18 06:18 Urine Turbidity Clear (Clear) 04/05/18 06:18 Urine pH 5.0 (5.0-7.0) 04/05/18 06:18 Ur Specific [place] 1.013 (1.003-1.030) 04/05/18 06:18 Urine Protein >500 mg/dL (Negative) 04/05/18 06:18 Urine Glucose (UA) Neg mg/dL (Negative) 04/05/18 06:18 Urine Ketones Neg mg/dL (Negative) 04/05/18 06:18 Urine Blood Sm (Negative) 04/05/18 06:18 Urine Nitrite Neg (Negative) 04/05/18 06:18 Urine Bilirubin Neg (Negative) 04/05/18 06:18 Urine Urobilinogen < 2.0 mg/dL (<2.0) 04/05/18 06:18 Ur Leukocyte Esterase Neg (Negative) 04/05/18 06:18 Urine WBC (Auto) 3.0 /HPF (0.0-6.0) 04/05/18 06:18 Urine RBC (Auto) 2.0 /HPF (0.0-6.0) 04/05/18 06:18 Urine Bacteria (Auto) 1+ /HPF (Negative) 03/25/18 14:00 Uric Acid Crystals 2+ 04/05/18 06:18 Urine Mucus Few /HPF 04/05/18 06:18 Urine Yeast ([place]) 1+ /HPF 04/05/18 06:18 Urine Creatinine 112.0 mg/dL (0.1-20.0) H 04/05/18 06:18 Urine Sodium 39 mmol/L 04/05/18 06:18 Urine Urea Nitrogen 419 04/05/18 06:18 Random Vancomycin 21.0 ug/mL (0-40.0) 04/06/18 05:26 Urine Opiates Screen Presumptive negative 03/25/18 14:19 Urine Methadone Screen Presumptive negative 03/25/18 14:19 Ur Barbiturates Screen Presumptive negative 03/25/18 14:19 Ur Phencyclidine Scrn Presumptive negative 03/25/18 14:19 Ur Amphetamines Screen Presumptive negative 03/25/18 14:19 U Benzodiazepines Scrn Presumptive negative 03/25/18 14:19 Urine Cocaine Screen Presumptive negative 03/25/18 14:19 U Marijuana (THC) Screen Presumptive negative 03/25/18 14:19 Drugs of Abuse Note Disclamer 03/25/18 14:19 Blood Type O POSITIVE 04/04/18 20:14 Antibody Screen Negative 04/04/18 20:14 Crossmatch See Detail 04/04/18 20:14
--- NOTE | 2018-04-06 09:11 | XRay Report ---
XRAY CHEST TWO VIEWS: 04/06/18 CLINICAL: Followup pulmonary infiltrates. COMPARISON: 03/29/18 FINDINGS: Normal heart and pulmonary vasculature.Increased bilateral perihilar and bibasal interstitial lung opacities. No pulmonary consolidation. Opacification of the posterior costophrenic angle on the lateral view.The right jugular venous catheter has been removed. IMPRESSION: Increased bilateral reticular interstitial opacities.No consolidating pneumonia. Suspect small pleural effusion or pleural effusions.
[2018-04-06] MEDS: PROzac PO SCH (10:00)
[2018-04-06] MEDS: MINIPRESS PO SCH ×2 (10:00→22:21)
[2018-04-06] MEDS: COREG PO SCH ×2 (10:00→22:19)
[2018-04-06] MEDS: PEPCID PO SCH ×2 (10:00→22:21)
[2018-04-06] MEDS: SODIUM CHLORIDE FLUSH SYRINGE 10 ML IV SCH ×2 (10:00→22:22)
[2018-04-06] MEDS: BABY ASPIRIN PO SCH (10:00)
--- NOTE | 2018-04-06 12:27 | Progress Note ---
Assessment and Plan Patient is in deep sleep at this time. Patient is on on room air .O2 saturation 98%. No acute respiratory distress. Patient afebrile. No leukocytosis. - Patient Problems (1) Acute respiratory failure Current Visit: Yes Status: Acute Qualifiers: Respiratory failure complication: hypoxia Qualified Code(s): J96.01 - Acute respiratory failure with hypoxia Plan to address problem: Improved. No complaint of shortness of breath.O2 saturation 98% on room air. (2) DKA (diabetic ketoacidoses) Current Visit: Yes Status: Acute Qualifiers: Diabetes mellitus type: type 1 Diabetes mellitus complication detail: with coma Qualified Code(s): E10.11 - Type 1 diabetes mellitus with ketoacidosis with coma Plan to address problem: Improving. Management as per primary care. (3) BELKIS (acute kidney injury) Current Visit: Yes Status: Acute Plan to address problem: Management as per primary care and nephrology. (4) Pulmonary infiltrate in left lung on chest x-ray Current Visit: Yes Status: Acute Plan to address problem: Patient is on zosyn and vancomycin. Recommend to add Zithromax also. Subjective Date of service: 04/06/18 Principal diagnosis: Acute hypoxic respiratory failure, DKA, BELKIS, Acute encephalopathy Interval history: Patient is in deep sleep at this time. Patient is on on room air .O2 saturation 98%. No acute respiratory distress. Patient afebrile. No leukocytosis. Objective Vital Signs - 12hr 04/06/18 04/06/18 05:14 05:45 Temperature 98.5 F Pulse Rate 74 84 Respiratory 18 Rate Blood Pressure 196/92 196/92 O2 Sat by Pulse 98 Oximetry Constitutional: no acute distress, asleep, other (middle aged AAM, normocephalic and atraumatic) Eyes: non-icteric ENT: oropharynx moist, other (mallampatti 2) Neck: supple, no lymphadenopathy, no JVD, other (no thyromegaly) Effort: normal Ascultation: Bilateral: diminished breath sounds, rhonchi (posterior base) Percussion: Bilateral: not dull Cardiovascular: regular rate and rhythm, other (No R/M) Gastrointestinal: normoactive bowel sounds, soft, non-tender, non-distended, other ( No HSM) Integumentary: normal Extremities: no cyanosis, pulses normal, no ischemia or petechiae, edema (to hands) Neurologic: non-focal exam (grossly), pupils equal and round, CN II-XII normal, motor strength normal and Psychiatric: other (Patient is in deep sleep.) CBC and BMP: 04/05/18 06:10 04/05/18 06:10 ABG, PT/INR, D-dimer: ABG POC ABG pH 7.405 (7.35-7.45) 03/28/18 03:49 POC ABG pCO2 38.6 (35-45) 03/28/18 03:49 POC ABG pO2 102 (80-105) 03/28/18 03:49 POC ABG HCO3 24.2 03/28/18 03:49 POC ABG Total CO2 25 03/28/18 03:49 POC ABG O2 Sat 98 03/28/18 03:49 Abnormal lab findings: Abnormal Labs 03/25/18 03/25/18 03/25/18 13:48 14:00 14:00 WBC 15.3 H RBC Hgb 10.5 L Hct MCV 95 H MCH 27 L MCHC 28 L RDW Plt Count Lymph % (Auto) 8.5 L Gates % (Auto) Lymph # [place] # Seg Neutrophils % 86.4 H Seg Neuts % (Manual) Lymphocytes % (Manual) Monocytes % (Manual) Seg Neutrophils # 13.2 H Lymphocytes # (Manual) Monocytes # (Manual) POC ABG pH POC ABG pCO2 POC ABG pO2 VBG pH Sodium 132 L Potassium 8.1 H* Chloride 87.8 L Carbon Dioxide 3 L* BUN 43 H Creatinine 2.6 H Glucose 1026 H* POC Glucose > 500 H Hemoglobin A1c Lactic Acid Calcium Phosphorus TIBC Transferrin Ferritin AST Total Creatine Kinase Troponin T Total Protein Albumin Triglycerides Cholesterol LDL Cholesterol Direct Urine Creatinine Crossmatch 03/25/18 03/25/18 03/25/18 14:00 14:08 14:29 WBC RBC Hgb Hct MCV MCH MCHC RDW Plt Count Lymph % (Auto) [place] % (Auto) Lymph # [place] # Seg Neutrophils % Seg Neuts % (Manual) Lymphocytes % (Manual) Monocytes % (Manual) Seg Neutrophils # Lymphocytes # (Manual) Monocytes # (Manual) POC ABG pH 6.952 L POC ABG pCO2 25.8 L POC ABG pO2 559 H VBG pH Sodium Potassium Chloride Carbon Dioxide BUN Creatinine Glucose POC Glucose Hemoglobin A1c Lactic Acid 10.10 H* Calcium Phosphorus 8.70 H TIBC Transferrin Ferritin AST Total Creatine Kinase Troponin T Total Protein Albumin 2.6 L Triglycerides Cholesterol LDL Cholesterol Direct Urine Creatinine Crossmatch 03/25/18 03/25/18 03/25/18 14:41 15:40 15:40 WBC RBC Hgb Hct MCV MCH MCHC RDW Plt Count Lymph % (Auto) [place] % (Auto) Lymph # [place] # Seg Neutrophils % Seg Neuts % (Manual) Lymphocytes % (Manual) Monocytes % (Manual) Seg Neutrophils # Lymphocytes # (Manual) Monocytes # (Manual) POC ABG pH POC ABG pCO2 POC ABG pO2 VBG pH 7.000 L* Sodium Potassium 6.7 H* Chloride 97.5 L Carbon Dioxide 5 L* BUN 43 H Creatinine 2.5 H Glucose 893 H* POC Glucose Hemoglobin A1c Lactic Acid Calcium 7.5 L Phosphorus 9.10 H TIBC Transferrin Ferritin AST Total Creatine Kinase Troponin T Total Protein Albumin Triglycerides Cholesterol LDL Cholesterol Direct Urine Creatinine Crossmatch 03/25/18 03/25/18 03/25/18 18:09 18:12 18:55 WBC RBC Hgb Hct MCV MCH MCHC RDW Plt Count Lymph % (Auto) [place] % (Auto) Lymph # [place] # Seg Neutrophils % Seg Neuts % (Manual) Lymphocytes % (Manual) Monocytes % (Manual) Seg Neutrophils # Lymphocytes # (Manual) Monocytes # (Manual) POC ABG pH POC ABG pCO2 POC ABG pO2 VBG pH Sodium 133 L Potassium 5.7 H Chloride 93.1 L Carbon Dioxide 10 L BUN 43 H Creatinine 2.5 H Glucose 786 H* POC Glucose Hemoglobin A1c 8.9 H Lactic Acid Calcium 7.8 L Phosphorus TIBC Transferrin Ferritin AST Total Creatine Kinase 226 H Troponin T 0.033 H Total Protein Albumin Triglycerides 185 H Cholesterol 215 H LDL Cholesterol Direct 144 H Urine Creatinine Crossmatch 03/25/18 03/25/18 03/25/18 18:55 21:00 21:03 WBC RBC Hgb Hct MCV MCH MCHC RDW Plt Count Lymph % (Auto) [place] % (Auto) Lymph # [place] # Seg Neutrophils % Seg Neuts % (Manual) Lymphocytes % (Manual) Monocytes % (Manual) Seg Neutrophils # Lymphocytes # (Manual) Monocytes # (Manual) POC ABG pH POC ABG pCO2 POC ABG pO2 VBG pH Sodium 136 L Potassium 6.7 H* Chloride Carbon Dioxide 7 L* BUN 45 H Creatinine 2.6 H Glucose 879 H* POC Glucose > 500 H Hemoglobin A1c Lactic Acid Calcium 7.8 L Phosphorus 9.20 H TIBC Transferrin Ferritin AST Total Creatine Kinase Troponin T Total Protein Albumin Triglycerides Cholesterol LDL Cholesterol Direct Urine Creatinine Crossmatch 03/25/18 03/25/18 03/25/18 21:39 22:06 23:20 WBC RBC Hgb Hct MCV MCH MCHC RDW Plt Count Lymph % (Auto) [place] % (Auto) Lymph # [place] # Seg Neutrophils % Seg Neuts % (Manual) Lymphocytes % (Manual) Monocytes % (Manual) Seg Neutrophils # Lymphocytes # (Manual) Monocytes # (Manual) POC ABG pH 7.272 L POC ABG pCO2 14.2 L POC ABG pO2 263 H VBG pH Sodium Potassium Chloride Carbon Dioxide 7 L* BUN 47 H Creatinine 2.9 H Glucose 702 H* POC Glucose > 500 H Hemoglobin A1c Lactic Acid Calcium 7.6 L Phosphorus TIBC Transferrin Ferritin AST Total Creatine Kinase Troponin T Total Protein Albumin Triglycerides Cholesterol LDL Cholesterol Direct Urine Creatinine Crossmatch 03/25/18 03/26/18 03/26/18 23:20 00:17 01:08 WBC RBC Hgb Hct MCV MCH MCHC RDW Plt Count Lymph % (Auto) [place] % (Auto) Lymph # [place] # Seg Neutrophils % Seg Neuts % (Manual) Lymphocytes % (Manual) Monocytes % (Manual) Seg Neutrophils # Lymphocytes # (Manual) Monocytes # (Manual) POC ABG pH POC ABG pCO2 POC ABG pO2 VBG pH Sodium Potassium Chloride Carbon Dioxide BUN Creatinine Glucose POC Glucose > 500 H 447 H 484 H Hemoglobin A1c Lactic Acid Calcium Phosphorus TIBC Transferrin Ferritin AST Total Creatine Kinase Troponin T Total Protein Albumin Triglycerides Cholesterol LDL Cholesterol Direct Urine Creatinine Crossmatch 03/26/18 03/26/18 03/26/18 02:31 03:07 04:09 WBC RBC Hgb Hct MCV MCH MCHC RDW Plt Count Lymph % (Auto) [place] % (Auto) Lymph # [place] # Seg Neutrophils % Seg Neuts % (Manual) Lymphocytes % (Manual) Monocytes % (Manual) Seg Neutrophils # Lymphocytes # (Manual) Monocytes # (Manual) POC ABG pH POC ABG pCO2 POC ABG pO2 VBG pH Sodium Potassium Chloride Carbon Dioxide BUN Creatinine Glucose POC Glucose > 500 H 467 H 361 H Hemoglobin A1c Lactic Acid Calcium Phosphorus TIBC Transferrin Ferritin AST Total Creatine Kinase Troponin T Total Protein Albumin Triglycerides Cholesterol LDL Cholesterol Direct Urine Creatinine Crossmatch 03/26/18 03/26/18 03/26/18 04:25 05:24 06:19 WBC RBC Hgb Hct MCV MCH MCHC RDW Plt Count Lymph % (Auto) [place] % (Auto) Lymph # [place] # Seg Neutrophils % Seg Neuts % (Manual) Lymphocytes % (Manual) Monocytes % (Manual) Seg Neutrophils # Lymphocytes # (Manual) Monocytes # (Manual) POC ABG pH POC ABG pCO2 POC ABG pO2 VBG pH Sodium 150 H D Potassium 3.4 L D Chloride 118.3 H Carbon Dioxide 16 L D BUN 45 H Creatinine 2.7 H Glucose 278 H POC Glucose 306 H 188 H Hemoglobin A1c Lactic Acid Calcium 7.7 L Phosphorus TIBC Transferrin Ferritin AST Total Creatine Kinase Troponin T Total Protein Albumin Triglycerides Cholesterol LDL Cholesterol Direct Urine Creatinine Crossmatch 03/26/18 03/26/18 03/26/18 07:09 08:20 09:12 WBC RBC Hgb Hct MCV MCH MCHC RDW Plt Count Lymph % (Auto) [place] % (Auto) Lymph # [place] # Seg Neutrophils % Seg Neuts % (Manual) Lymphocytes % (Manual) Monocytes % (Manual) Seg Neutrophils # Lymphocytes # (Manual) Monocytes # (Manual) POC ABG pH 7.530 H POC ABG pCO2 22.0 L POC ABG pO2 147 H VBG pH Sodium Potassium Chloride Carbon Dioxide BUN Creatinine Glucose POC Glucose 148 H 170 H Hemoglobin A1c Lactic Acid Calcium Phosphorus TIBC Transferrin Ferritin AST Total Creatine Kinase Troponin T Total Protein Albumin Triglycerides Cholesterol LDL Cholesterol Direct Urine Creatinine Crossmatch 03/26/18 03/26/18 03/26/18 09:15 10:30 10:46 WBC RBC Hgb Hct MCV MCH MCHC RDW Plt Count Lymph % (Auto) [place] % (Auto) Lymph # [place] # Seg Neutrophils % Seg Neuts % (Manual) Lymphocytes % (Manual) Monocytes % (Manual) Seg Neutrophils # Lymphocytes # (Manual) Monocytes # (Manual) POC ABG pH POC ABG pCO2 POC ABG pO2 VBG pH Sodium 152 H Potassium 3.1 L Chloride 121.4 H Carbon Dioxide BUN 43 H Creatinine 2.6 H Glucose 105 H POC Glucose 177 H 125 H Hemoglobin A1c Lactic Acid Calcium 7.5 L Phosphorus TIBC Transferrin Ferritin AST Total Creatine Kinase Troponin T Total Protein Albumin Triglycerides Cholesterol LDL Cholesterol Direct Urine Creatinine Crossmatch 03/26/18 03/26/18 03/26/18 14:57 15:35 18:12 WBC RBC Hgb Hct MCV MCH MCHC RDW Plt Count Lymph % (Auto) [place] % (Auto) Lymph # [place] # Seg Neutrophils % Seg Neuts % (Manual) Lymphocytes % (Manual) Monocytes % (Manual) Seg Neutrophils # Lymphocytes # (Manual) Monocytes # (Manual) POC ABG pH POC ABG pCO2 POC ABG pO2 VBG pH Sodium 148 H Potassium Chloride 117.5 H Carbon Dioxide 18 L BUN 43 H Creatinine 2.5 H Glucose 135 H POC Glucose 159 H 245 H Hemoglobin A1c Lactic Acid Calcium 7.3 L Phosphorus TIBC Transferrin Ferritin AST Total Creatine Kinase Troponin T Total Protein Albumin Triglycerides Cholesterol LDL Cholesterol Direct Urine Creatinine Crossmatch 03/26/18 03/26/18 03/27/18 19:27 21:42 02:03 WBC RBC Hgb Hct MCV MCH MCHC RDW Plt Count Lymph % (Auto) [place] % (Auto) Lymph # [place] # Seg Neutrophils % Seg Neuts % (Manual) Lymphocytes % (Manual) Monocytes % (Manual) Seg Neutrophils # Lymphocytes # (Manual) Monocytes # (Manual) POC ABG pH POC ABG pCO2 POC ABG pO2 VBG pH Sodium Potassium Chloride 115.0 H Carbon Dioxide 20 L BUN 42 H Creatinine 2.4 H Glucose 221 H POC Glucose 261 H 254 H Hemoglobin A1c Lactic Acid Calcium 7.1 L Phosphorus TIBC Transferrin Ferritin AST Total Creatine Kinase Troponin T Total Protein Albumin Triglycerides Cholesterol LDL Cholesterol Direct Urine Creatinine Crossmatch 03/27/18 03/27/18 03/27/18 03:35 03:35 05:20 WBC 12.3 H RBC 3.05 L Hgb 8.3 L Hct 25.3 L D MCV 83 L MCH 27 L MCHC RDW Plt Count Lymph % (Auto) [place] % (Auto) 8.6 H Lymph # [place] # 1.1 H Seg Neutrophils % 76.5 H Seg Neuts % (Manual) Lymphocytes % (Manual) Monocytes % (Manual) Seg Neutrophils # 9.4 H Lymphocytes # (Manual) Monocytes # (Manual) POC ABG pH POC ABG pCO2 POC ABG pO2 VBG pH Sodium Potassium Chloride 112.6 H Carbon Dioxide BUN 36 H Creatinine 2.1 H Glucose 244 H POC Glucose 263 H Hemoglobin A1c Lactic Acid Calcium 7.1 L Phosphorus TIBC Transferrin Ferritin AST 44 H Total Creatine Kinase Troponin T Total Protein 5.1 L D Albumin 2.1 L Triglycerides Cholesterol LDL Cholesterol Direct Urine Creatinine Crossmatch 03/27/18 03/27/18 03/27/18 08:22 13:00 14:06 WBC RBC Hgb Hct MCV MCH MCHC RDW Plt Count Lymph % (Auto) [place] % (Auto) Lymph # [place] # Seg Neutrophils % Seg Neuts % (Manual) Lymphocytes % (Manual) Monocytes % (Manual) Seg Neutrophils # Lymphocytes # (Manual) Monocytes # (Manual) POC ABG pH POC ABG pCO2 34.7 L POC ABG pO2 VBG pH Sodium Potassium Chloride Carbon Dioxide BUN Creatinine Glucose POC Glucose 306 H 233 H Hemoglobin A1c Lactic Acid Calcium Phosphorus TIBC Transferrin Ferritin AST Total Creatine Kinase Troponin T Total Protein Albumin Triglycerides Cholesterol LDL Cholesterol Direct Urine Creatinine Crossmatch 03/27/18 03/27/18 03/27/18 16:15 18:11 21:44 WBC RBC Hgb Hct MCV MCH MCHC RDW Plt Count Lymph % (Auto) [place] % (Auto) Lymph # [place] # Seg Neutrophils % Seg Neuts % (Manual) Lymphocytes % (Manual) Monocytes % (Manual) Seg Neutrophils # Lymphocytes # (Manual) Monocytes # (Manual) POC ABG pH POC ABG pCO2 POC ABG pO2 VBG pH Sodium Potassium Chloride Carbon Dioxide BUN Creatinine Glucose POC Glucose 243 H 226 H 224 H Hemoglobin A1c Lactic Acid Calcium Phosphorus TIBC Transferrin Ferritin AST Total Creatine Kinase Troponin T Total Protein Albumin Triglycerides Cholesterol LDL Cholesterol Direct Urine Creatinine Crossmatch 03/28/18 03/28/18 03/28/18 02:07 04:35 04:35 WBC RBC Hgb Hct MCV MCH MCHC RDW Plt Count Lymph % (Auto) [place] % (Auto) Lymph # [place] # Seg Neutrophils % Seg Neuts % (Manual) Lymphocytes % (Manual) Monocytes % (Manual) Seg Neutrophils # Lymphocytes # (Manual) Monocytes # (Manual) POC ABG pH POC ABG pCO2 POC ABG pO2 VBG pH Sodium Potassium Chloride Carbon Dioxide BUN Creatinine Glucose POC Glucose 220 H Hemoglobin A1c Lactic Acid Calcium Phosphorus TIBC 115 L Transferrin 94 L Ferritin 412.1 H AST Total Creatine Kinase Troponin T Total Protein Albumin Triglycerides Cholesterol LDL Cholesterol Direct Urine Creatinine Crossmatch 03/28/18 03/28/18 03/28/18 05:27 09:52 10:59 WBC RBC 3.22 L Hgb 9.1 L Hct 26.8 L MCV 83 L MCH MCHC RDW Plt Count 134 L Lymph % (Auto) [place] % (Auto) Lymph # [place] # Seg Neutrophils % Seg Neuts % (Manual) Lymphocytes % (Manual) Monocytes % (Manual) Seg Neutrophils # Lymphocytes # (Manual) Monocytes # (Manual) POC ABG pH POC ABG pCO2 POC ABG pO2 VBG pH Sodium Potassium Chloride Carbon Dioxide BUN Creatinine Glucose POC Glucose 280 H 332 H Hemoglobin A1c Lactic Acid Calcium Phosphorus TIBC Transferrin Ferritin AST Total Creatine Kinase Troponin T Total Protein Albumin Triglycerides Cholesterol LDL Cholesterol Direct Urine Creatinine Crossmatch 03/28/18 03/28/18 03/28/18 10:59 14:39 17:47 WBC RBC Hgb Hct MCV MCH MCHC RDW Plt Count Lymph % (Auto) [place] % (Auto) Lymph # [place] # Seg Neutrophils % Seg Neuts % (Manual) Lymphocytes % (Manual) Monocytes % (Manual) Seg Neutrophils # Lymphocytes # (Manual) Monocytes # (Manual) POC ABG pH POC ABG pCO2 POC ABG pO2 VBG pH Sodium 136 L Potassium Chloride Carbon Dioxide BUN 29 H Creatinine Glucose 310 H POC Glucose 250 H 132 H Hemoglobin A1c Lactic Acid Calcium 7.0 L Phosphorus TIBC Transferrin Ferritin AST Total Creatine Kinase Troponin T Total Protein Albumin Triglycerides Cholesterol LDL Cholesterol Direct Urine Creatinine Crossmatch 03/29/18 03/29/18 03/29/18 01:49 04:23 05:45 WBC RBC 3.13 L Hgb 8.8 L Hct 25.8 L MCV 82 L MCH MCHC RDW 12.7 L Plt Count 132 L Lymph % (Auto) 10.8 L [place] % (Auto) 9.1 H Lymph # 1.0 L [place] # Seg Neutrophils % 79.1 H Seg Neuts % (Manual) Lymphocytes % (Manual) Monocytes % (Manual) Seg Neutrophils # Lymphocytes # (Manual) Monocytes # (Manual) POC ABG pH POC ABG pCO2 POC ABG pO2 VBG pH Sodium 134 L Potassium Chloride Carbon Dioxide BUN 27 H Creatinine Glucose 172 H POC Glucose 122 H Hemoglobin A1c Lactic Acid Calcium 7.1 L Phosphorus TIBC Transferrin Ferritin AST Total Creatine Kinase Troponin T Total Protein Albumin Triglycerides Cholesterol LDL Cholesterol Direct Urine Creatinine Crossmatch 03/29/18 03/29/18 03/29/18 05:57 09:19 13:09 WBC RBC Hgb Hct MCV MCH MCHC RDW Plt Count Lymph % (Auto) [place] % (Auto) Lymph # [place] # Seg Neutrophils % Seg Neuts % (Manual) Lymphocytes % (Manual) Monocytes % (Manual) Seg Neutrophils # Lymphocytes # (Manual) Monocytes # (Manual) POC ABG pH POC ABG pCO2 POC ABG pO2 VBG pH Sodium Potassium Chloride Carbon Dioxide BUN Creatinine Glucose POC Glucose 224 H 316 H 345 H Hemoglobin A1c Lactic Acid Calcium Phosphorus TIBC Transferrin Ferritin AST Total Creatine Kinase Troponin T Total Protein Albumin Triglycerides Cholesterol LDL Cholesterol Direct Urine Creatinine Crossmatch 03/29/18 03/29/18 03/29/18 16:27 22:26 22:36 WBC RBC Hgb Hct MCV MCH MCHC RDW Plt Count Lymph % (Auto) [place] % (Auto) Lymph # [place] # Seg Neutrophils % Seg Neuts % (Manual) Lymphocytes % (Manual) Monocytes % (Manual) Seg Neutrophils # Lymphocytes # (Manual) Monocytes # (Manual) POC ABG pH POC ABG pCO2 POC ABG pO2 VBG pH Sodium Potassium Chloride Carbon Dioxide BUN Creatinine Glucose POC Glucose 210 H < 40 L 172 H Hemoglobin A1c Lactic Acid Calcium Phosphorus TIBC Transferrin Ferritin AST Total Creatine Kinase Troponin T Total Protein Albumin Triglycerides Cholesterol LDL Cholesterol Direct Urine Creatinine Crossmatch 03/30/18 03/30/18 03/30/18 00:07 05:12 06:39 WBC RBC 2.95 L Hgb 8.3 L Hct 24.6 L MCV 83 L MCH MCHC RDW 12.9 L Plt Count Lymph % (Auto) [place] % (Auto) 13.5 H Lymph # [place] # 0.9 H Seg Neutrophils % Seg Neuts % (Manual) Lymphocytes % (Manual) Monocytes % (Manual) Seg Neutrophils # Lymphocytes # (Manual) Monocytes # (Manual) POC ABG pH POC ABG pCO2 POC ABG pO2 VBG pH Sodium Potassium Chloride Carbon Dioxide BUN Creatinine Glucose POC Glucose 69 L 213 H Hemoglobin A1c Lactic Acid Calcium Phosphorus TIBC Transferrin Ferritin AST Total Creatine Kinase Troponin T Total Protein Albumin Triglycerides Cholesterol LDL Cholesterol Direct Urine Creatinine Crossmatch 03/30/18 03/30/18 03/30/18 06:39 10:06 13:59 WBC RBC Hgb Hct MCV MCH MCHC RDW Plt Count Lymph % (Auto) [place] % (Auto) Lymph # [place] # Seg Neutrophils % Seg Neuts % (Manual) Lymphocytes % (Manual) Monocytes % (Manual) Seg Neutrophils # Lymphocytes # (Manual) Monocytes # (Manual) POC ABG pH POC ABG pCO2 POC ABG pO2 VBG pH Sodium 133 L Potassium 3.5 L D Chloride 95.6 L Carbon Dioxide BUN 34 H Creatinine Glucose 241 H POC Glucose 368 H 237 H Hemoglobin A1c Lactic Acid Calcium 7.3 L Phosphorus TIBC Transferrin Ferritin AST Total Creatine Kinase Troponin T Total Protein Albumin Triglycerides Cholesterol LDL Cholesterol Direct Urine Creatinine Crossmatch 03/30/18 03/30/18 03/30/18 16:39 20:47 21:30 WBC RBC Hgb Hct MCV MCH MCHC RDW Plt Count Lymph % (Auto) [place] % (Auto) Lymph # [place] # Seg Neutrophils % Seg Neuts % (Manual) Lymphocytes % (Manual) Monocytes % (Manual) Seg Neutrophils # Lymphocytes # (Manual) Monocytes # (Manual) POC ABG pH POC ABG pCO2 POC ABG pO2 VBG pH Sodium Potassium Chloride Carbon Dioxide BUN Creatinine Glucose POC Glucose 176 H 60 L 113 H Hemoglobin A1c Lactic Acid Calcium Phosphorus TIBC Transferrin Ferritin AST Total Creatine Kinase Troponin T Total Protein Albumin Triglycerides Cholesterol LDL Cholesterol Direct Urine Creatinine Crossmatch 03/31/18 03/31/18 03/31/18 02:07 06:45 07:24 WBC RBC 3.06 L Hgb 8.6 L Hct 25.3 L MCV 83 L MCH MCHC RDW 12.7 L Plt Count Lymph % (Auto) [place] % (Auto) Lymph # [place] # Seg Neutrophils % Seg Neuts % (Manual) 73.0 H Lymphocytes % (Manual) 6.0 L Monocytes % (Manual) 21.0 H Seg Neutrophils # Lymphocytes # (Manual) 0.4 L Monocytes # (Manual) 1.4 H POC ABG pH POC ABG pCO2 POC ABG pO2 VBG pH Sodium Potassium Chloride Carbon Dioxide BUN Creatinine Glucose POC Glucose 140 H 260 H Hemoglobin A1c Lactic Acid Calcium Phosphorus TIBC Transferrin Ferritin AST Total Creatine Kinase Troponin T Total Protein Albumin Triglycerides Cholesterol LDL Cholesterol Direct Urine Creatinine Crossmatch 03/31/18 03/31/18 03/31/18 07:24 11:51 13:08 WBC RBC Hgb Hct MCV MCH MCHC RDW Plt Count Lymph % (Auto) [place] % (Auto) Lymph # [place] # Seg Neutrophils % Seg Neuts % (Manual) Lymphocytes % (Manual) Monocytes % (Manual) Seg Neutrophils # Lymphocytes # (Manual) Monocytes # (Manual) POC ABG pH POC ABG pCO2 POC ABG pO2 VBG pH Sodium 134 L Potassium Chloride Carbon Dioxide BUN 36 H Creatinine 1.8 H Glucose 271 H POC Glucose > 500 H > 500 H Hemoglobin A1c Lactic Acid Calcium 7.3 L Phosphorus TIBC Transferrin Ferritin AST Total Creatine Kinase Troponin T Total Protein Albumin Triglycerides Cholesterol LDL Cholesterol Direct Urine Creatinine Crossmatch 03/31/18 03/31/18 03/31/18 14:00 16:15 16:29 WBC RBC Hgb Hct MCV MCH MCHC RDW Plt Count Lymph % (Auto) [place] % (Auto) Lymph # [place] # Seg Neutrophils % Seg Neuts % (Manual) Lymphocytes % (Manual) Monocytes % (Manual) Seg Neutrophils # Lymphocytes # (Manual) Monocytes # (Manual) POC ABG pH POC ABG pCO2 POC ABG pO2 VBG pH Sodium Potassium Chloride Carbon Dioxide BUN Creatinine Glucose POC Glucose > 500 H 405 H 424 H Hemoglobin A1c Lactic Acid Calcium Phosphorus TIBC Transferrin Ferritin AST Total Creatine Kinase Troponin T Total Protein Albumin Triglycerides Cholesterol LDL Cholesterol Direct Urine Creatinine Crossmatch 03/31/18 04/01/18 04/01/18 21:14 00:21 05:51 WBC RBC 2.55 L Hgb 7.1 L Hct 21.2 L MCV 83 L MCH MCHC RDW 12.5 L Plt Count Lymph % (Auto) [place] % (Auto) Lymph # [place] # Seg Neutrophils % Seg Neuts % (Manual) Lymphocytes % (Manual) Monocytes % (Manual) 22.0 H Seg Neutrophils # Lymphocytes # (Manual) Monocytes # (Manual) 1.1 H POC ABG pH POC ABG pCO2 POC ABG pO2 VBG pH Sodium Potassium Chloride Carbon Dioxide BUN Creatinine Glucose POC Glucose 393 H 384 H Hemoglobin A1c Lactic Acid Calcium Phosphorus TIBC Transferrin Ferritin AST Total Creatine Kinase Troponin T Total Protein Albumin Triglycerides Cholesterol LDL Cholesterol Direct Urine Creatinine Crossmatch 04/01/18 04/01/18 04/01/18 05:51 06:52 11:13 WBC RBC Hgb Hct MCV MCH MCHC RDW Plt Count Lymph % (Auto) [place] % (Auto) Lymph # [place] # Seg Neutrophils % Seg Neuts % (Manual) Lymphocytes % (Manual) Monocytes % (Manual) Seg Neutrophils # Lymphocytes # (Manual) Monocytes # (Manual) POC ABG pH POC ABG pCO2 POC ABG pO2 VBG pH Sodium Potassium Chloride Carbon Dioxide BUN 35 H Creatinine Glucose 120 H POC Glucose 114 H Hemoglobin A1c Lactic Acid Calcium 7.3 L Phosphorus TIBC Transferrin Ferritin AST Total Creatine Kinase Troponin T Total Protein Albumin Triglycerides Cholesterol LDL Cholesterol Direct Urine Creatinine Crossmatch See Detail 04/01/18 04/01/18 04/01/18 11:16 12:06 16:04 WBC RBC Hgb 7.3 L Hct 21.5 L MCV MCH MCHC RDW Plt Count Lymph % (Auto) [place] % (Auto) Lymph # [place] # Seg Neutrophils % Seg Neuts % (Manual) Lymphocytes % (Manual) Monocytes % (Manual) Seg Neutrophils # Lymphocytes # (Manual) Monocytes # (Manual) POC ABG pH POC ABG pCO2 POC ABG pO2 VBG pH Sodium Potassium Chloride Carbon Dioxide BUN Creatinine Glucose POC Glucose 223 H 225 H Hemoglobin A1c Lactic Acid Calcium Phosphorus TIBC Transferrin Ferritin AST Total Creatine Kinase Troponin T Total Protein Albumin Triglycerides Cholesterol LDL Cholesterol Direct Urine Creatinine Crossmatch 04/01/18 04/01/18 04/01/18 16:46 19:47 21:15 WBC RBC Hgb 7.7 L Hct 23.5 L MCV MCH MCHC RDW Plt Count Lymph % (Auto) [place] % (Auto) Lymph # [place] # Seg Neutrophils % Seg Neuts % (Manual) Lymphocytes % (Manual) Monocytes % (Manual) Seg Neutrophils # Lymphocytes # (Manual) Monocytes # (Manual) POC ABG pH POC ABG pCO2 POC ABG pO2 VBG pH Sodium Potassium Chloride Carbon Dioxide BUN Creatinine Glucose POC Glucose 219 H 380 H Hemoglobin A1c Lactic Acid Calcium Phosphorus TIBC Transferrin Ferritin AST Total Creatine Kinase Troponin T Total Protein Albumin Triglycerides Cholesterol LDL Cholesterol Direct Urine Creatinine Crossmatch 04/02/18 04/02/18 04/02/18 05:47 06:57 07:52 WBC RBC 2.80 L Hgb 7.7 L Hct 23.5 L MCV MCH MCHC RDW Plt Count Lymph % (Auto) [place] % (Auto) Lymph # [place] # Seg Neutrophils % Seg Neuts % (Manual) Lymphocytes % (Manual) Monocytes % (Manual) 25.0 H Seg Neutrophils # Lymphocytes # (Manual) 1.1 L Monocytes # (Manual) 1.3 H POC ABG pH POC ABG pCO2 POC ABG pO2 VBG pH Sodium Potassium Chloride Carbon Dioxide BUN Creatinine Glucose POC Glucose 49 L 111 H Hemoglobin A1c Lactic Acid Calcium Phosphorus TIBC Transferrin Ferritin AST Total Creatine Kinase Troponin T Total Protein Albumin Triglycerides Cholesterol LDL Cholesterol Direct Urine Creatinine Crossmatch 04/02/18 04/02/18 04/02/18 07:52 12:36 16:36 WBC RBC Hgb Hct MCV MCH MCHC RDW Plt Count Lymph % (Auto) [place] % (Auto) Lymph # [place] # Seg Neutrophils % Seg Neuts % (Manual) Lymphocytes % (Manual) Monocytes % (Manual) Seg Neutrophils # Lymphocytes # (Manual) Monocytes # (Manual) POC ABG pH POC ABG pCO2 POC ABG pO2 VBG pH Sodium Potassium Chloride Carbon Dioxide BUN 28 H Creatinine Glucose 115 H POC Glucose 259 H 297 H Hemoglobin A1c Lactic Acid Calcium 7.3 L Phosphorus TIBC Transferrin Ferritin AST Total Creatine Kinase Troponin T Total Protein Albumin Triglycerides Cholesterol LDL Cholesterol Direct Urine Creatinine Crossmatch 04/02/18 04/03/18 04/03/18 22:01 04:20 04:46 WBC RBC Hgb Hct MCV MCH MCHC RDW Plt Count Lymph % (Auto) [place] % (Auto) Lymph # [place] # Seg Neutrophils % Seg Neuts % (Manual) Lymphocytes % (Manual) Monocytes % (Manual) Seg Neutrophils # Lymphocytes # (Manual) Monocytes # (Manual) POC ABG pH POC ABG pCO2 POC ABG pO2 VBG pH Sodium Potassium Chloride Carbon Dioxide BUN Creatinine Glucose POC Glucose 206 H < 40 L 64 L Hemoglobin A1c Lactic Acid Calcium Phosphorus TIBC Transferrin Ferritin AST Total Creatine Kinase Troponin T Total Protein Albumin Triglycerides Cholesterol LDL Cholesterol Direct Urine Creatinine Crossmatch 04/03/18 04/03/18 04/03/18 05:46 05:46 05:57 WBC RBC 2.72 L Hgb 7.6 L Hct 22.4 L MCV 83 L MCH MCHC RDW Plt Count Lymph % (Auto) [place] % (Auto) Lymph # [place] # Seg Neutrophils % Seg Neuts % (Manual) Lymphocytes % (Manual) 13.0 L Monocytes % (Manual) 19.0 H Seg Neutrophils # Lymphocytes # (Manual) 0.9 L Monocytes # (Manual) 1.3 H POC ABG pH POC ABG pCO2 POC ABG pO2 VBG pH Sodium Potassium Chloride 110.7 H Carbon Dioxide BUN 24 H Creatinine Glucose 45 L POC Glucose < 40 L Hemoglobin A1c Lactic Acid Calcium 7.3 L Phosphorus TIBC Transferrin Ferritin AST Total Creatine Kinase Troponin T Total Protein Albumin Triglycerides Cholesterol LDL Cholesterol Direct Urine Creatinine Crossmatch 04/03/18 04/03/18 04/03/18 07:04 09:17 11:34 WBC RBC Hgb Hct MCV MCH MCHC RDW Plt Count Lymph % (Auto) [place] % (Auto) Lymph # [place] # Seg Neutrophils % Seg Neuts % (Manual) Lymphocytes % (Manual) Monocytes % (Manual) Seg Neutrophils # Lymphocytes # (Manual) Monocytes # (Manual) POC ABG pH POC ABG pCO2 POC ABG pO2 VBG pH Sodium Potassium Chloride Carbon Dioxide BUN Creatinine Glucose POC Glucose 44 L 107 H 196 H Hemoglobin A1c Lactic Acid Calcium Phosphorus TIBC Transferrin Ferritin AST Total Creatine Kinase Troponin T Total Protein Albumin Triglycerides Cholesterol LDL Cholesterol Direct Urine Creatinine Crossmatch 04/03/18 04/03/18 04/04/18 16:48 20:25 06:05 WBC RBC 2.49 L Hgb 6.9 L Hct 20.8 L MCV 83 L MCH MCHC RDW Plt Count Lymph % (Auto) [place] % (Auto) Lymph # [place] # Seg Neutrophils % Seg Neuts % (Manual) Lymphocytes % (Manual) Monocytes % (Manual) 23.0 H Seg Neutrophils # Lymphocytes # (Manual) 0.7 L Monocytes # (Manual) 1.2 H POC ABG pH POC ABG pCO2 POC ABG pO2 VBG pH Sodium Potassium Chloride Carbon Dioxide BUN Creatinine Glucose POC Glucose 251 H 211 H Hemoglobin A1c Lactic Acid Calcium Phosphorus TIBC Transferrin Ferritin AST Total Creatine Kinase Troponin T Total Protein Albumin Triglycerides Cholesterol LDL Cholesterol Direct Urine Creatinine Crossmatch 04/04/18 04/04/18 04/04/18 06:05 06:06 20:14 WBC RBC Hgb Hct MCV MCH MCHC RDW Plt Count Lymph % (Auto) [place] % (Auto) Lymph # [place] # Seg Neutrophils % Seg Neuts % (Manual) Lymphocytes % (Manual) Monocytes % (Manual) Seg Neutrophils # Lymphocytes # (Manual) Monocytes # (Manual) POC ABG pH POC ABG pCO2 POC ABG pO2 VBG pH Sodium Potassium Chloride 109.8 H Carbon Dioxide BUN 22 H Creatinine 1.7 H Glucose 260 H POC Glucose 312 H Hemoglobin A1c Lactic Acid Calcium 7.2 L Phosphorus TIBC Transferrin Ferritin AST Total Creatine Kinase Troponin T Total Protein Albumin Triglycerides Cholesterol LDL Cholesterol Direct Urine Creatinine Crossmatch See Detail 04/04/18 04/05/18 04/05/18 22:23 06:10 06:10 WBC RBC 2.97 L Hgb 8.6 L Hct 25.0 L MCV MCH MCHC RDW Plt Count Lymph % (Auto) [place] % (Auto) 15.9 H Lymph # [place] # 1.2 H Seg Neutrophils % Seg Neuts % (Manual) Lymphocytes % (Manual) Monocytes % (Manual) Seg Neutrophils # Lymphocytes # (Manual) Monocytes # (Manual) POC ABG pH POC ABG pCO2 POC ABG pO2 VBG pH Sodium Potassium Chloride 108.4 H Carbon Dioxide 20 L BUN Creatinine 1.9 H Glucose 42 L POC Glucose 116 H Hemoglobin A1c Lactic Acid Calcium 7.3 L Phosphorus TIBC Transferrin Ferritin AST Total Creatine Kinase Troponin T Total Protein 5.7 L Albumin 2.3 L Triglycerides Cholesterol LDL Cholesterol Direct Urine Creatinine Crossmatch 04/05/18 04/05/18 04/05/18 06:18 06:20 12:17 WBC RBC Hgb Hct MCV MCH MCHC RDW Plt Count Lymph % (Auto) [place] % (Auto) Lymph # [place] # Seg Neutrophils % Seg Neuts % (Manual) Lymphocytes % (Manual) Monocytes % (Manual) Seg Neutrophils # Lymphocytes # (Manual) Monocytes # (Manual) POC ABG pH POC ABG pCO2 POC ABG pO2 VBG pH Sodium Potassium Chloride Carbon Dioxide BUN Creatinine Glucose POC Glucose 44 L 123 H Hemoglobin A1c Lactic Acid Calcium Phosphorus TIBC Transferrin Ferritin AST Total Creatine Kinase Troponin T Total Protein Albumin Triglycerides Cholesterol LDL Cholesterol Direct Urine Creatinine 112.0 H Crossmatch 04/05/18 04/05/18 04/06/18 16:33 21:29 07:06 WBC RBC Hgb Hct MCV MCH MCHC RDW Plt Count Lymph % (Auto) [place] % (Auto) Lymph # [place] # Seg Neutrophils % Seg Neuts % (Manual) Lymphocytes % (Manual) Monocytes % (Manual) Seg Neutrophils # Lymphocytes # (Manual) Monocytes # (Manual) POC ABG pH POC ABG pCO2 POC ABG pO2 VBG pH Sodium Potassium Chloride Carbon Dioxide BUN Creatinine Glucose POC Glucose 268 H 207 H 42 L Hemoglobin A1c Lactic Acid Calcium Phosphorus TIBC Transferrin Ferritin AST Total Creatine Kinase Troponin T Total Protein Albumin Triglycerides Cholesterol LDL Cholesterol Direct Urine Creatinine Crossmatch Chest x-ray: report reviewed (Icrease in interstitial infiltrates, no consolidations,small pleural effusions.), image reviewed Allied health notes reviewed: nursing
--- NOTE | 2018-04-06 16:59 | Progress Note ---
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: Volume Overload: -Renal function reviewed, SCr level was 1.9 today, yesterday's SCr level was 1.7 -Renally dose meds -Strict intake and output -Albumin 25 g IVPB every 8 hours x 6 doses -Start Lasix 40 mg IV daily for worsening bilateral leg edema -Discussed case with hospitalist -Obtain daily weight -Beard Catheter: No -Intake= 2092 ml Output= 1250 ml ( Net= 842 ml) -Renal plan d/w Dr Adrian -Continue supportive therapy Acute Respiratory Failure: -Extubated -Pulmonology on board Essential Hypertension: -On clonidine patch and coreg -Suspect volume component could also be contributing to worsening hypertension -Hydralazine dose increased to 75 mg TID -Start Lasix 40 mg IV once a day for now, will adjust diuretic regimen accordingly -Adjust medications as needed DKA: -Improved Subjective Date of service: 04/06/18 Principal diagnosis: Acute hypoxic respiratory failure, DKA, BELKIS, Acute encephalopathy Interval history: Pt sitting up on side of bed, states worsening bilateral lower extremity edema, no family at bedside Objective - Vital Signs Vital signs: Vital Signs - 12hr 04/06/18 04/06/18 04/06/18 05:14 05:45 10:00 Temperature 98.5 F Pulse Rate 74 84 73 Respiratory 18 Rate Blood Pressure 196/92 196/92 181/87 O2 Sat by Pulse 98 Oximetry 04/06/18 04/06/18 14:38 14:39 Temperature Pulse Rate 78 73 Respiratory Rate Blood Pressure 171/83 171/83 O2 Sat by Pulse Oximetry - General Appearance General appearance: well-developed (no acute distress) EENT: ATNC Neck: no JVD Respiratory: Present: Other (Lung sounds decreased bilaterally, unlabored) Cardiology: regular, S1S2 Gastrointestinal: normoactive bowel sounds, no tenderness Integumentary: warm and dry Neurologic: alert and oriented x3 Musculoskeletal: other (2+ edema to both lower extremities) Psychiatric: mood/affect appropriate - Lab 04/05/18 06:10 04/05/18 06:10 Most recent lab results Calcium 7.3 mg/dL (8.4-10.2) L 04/05/18 06:10 Phosphorus 3.70 mg/dL (2.5-4.5) 04/03/18 05:46 Magnesium 2.00 mg/dL (1.7-2.3) 04/05/18 06:10 Urine Creatinine 112.0 mg/dL (0.1-20.0) H 04/05/18 06:18 Urine Sodium 39 mmol/L 04/05/18 06:18
[2018-04-06] MEDS: APRESOLINE IV PRN (17:18)
[2018-04-06] MEDS ORDERED: LASIX IV ONE (18:00)
[2018-04-06] MEDS: LOVENOX SUB-Q SCH (22:19)
[2018-04-07] MEDS: ZOSYN/NS 4.5GM/100ML 4.5 GM/100 ML VIAL IV SCH ×3 (06:15→21:02)
[2018-04-07] MEDS: ALBURX 25% (ALBUMIN) IV SCH ×2 (06:16→14:39)
[2018-04-07] MEDS: APRESOLINE PO SCH ×4 (06:17→21:01)
[2018-04-07] MEDS: APRESOLINE IV PRN (06:18)
[2018-04-07] MEDS: SODIUM CHLORIDE FLUSH SYRINGE 10 ML IV PRN (06:19)
[2018-04-07 06:36] LABS: Basophils # (Auto) 0.1 K/mm3 (0.0-0.1); Basophils % (Auto) 1.2 % (0.0-1.8); Eosinophils # (Auto) 0.2 K/mm3 (0.0-0.4); Eosinophils % (Auto) 2.6 % (0.0-4.3); Hemoglobin 8.2 gm/dl (11.8-15.2); Lymphocytes # (Auto) 1.1 K/mm3 (1.2-5.4); Lymphocytes % (Auto) 17.9 % (13.4-35.0); Mean Corpuscular HGB Conc 33 % (32-34); Mean Corpuscular Hemoglobin 28 pg (28-32); Mean Corpuscular Volume 85 fl (84-94); Monocytes # (Auto) 0.8 K/mm3 (0.0-0.8); Monocytes % (Auto) 12.9 % (0.0-7.3); Platelet Count 410 K/mm3 (140-440); Red Blood Count 2.92 M/mm3 (3.65-5.03); Red Cell Distribution Width 14.5 % (13.2-15.2)
[2018-04-07 06:38] LABS: Calcium 7.7 mg/dL (8.4-10.2)
--- NOTE | 2018-04-07 07:58 | Progress Note ---
Assessment and Plan Assessment and plan: --Labile blood sugars; patient noncompliant with diet Accu-Chek sliding scale coverage and ADA diet and long-acting insulin Chest the dose as needed, A1c 8.9 --DKA (diabetic ketoacidoses); resolved Uncontrolled blood sugars, non-complaints, Accu-Cheks, insulin, ADA diet --anemia; mild drop in H&H Received total 2 units of PRBC, HB 8.6 stool guaiac-negative, GI evaluated ,out patient workup, --Bilateral upper extremity superficial venous thrombosis/cellulitis Vascular evaluated, supportive care --cellulitis upper extremities and blisters, Elevate the limb, emperic antibiotics, cultures negative, wound care, vascular evaluated Lower Extremity venous Doppler negative for DVT. --Acute respiratory failure; s/p extubation 03/28/18 saturating well on nasal cannula oxygen, evaluation for home oxygen and discharge --BELKIS (acute kidney injury)secondary to severe dehydration Due to ATN, worsening of renal Function --Severe hypoalbuminemia; severe malnutrition Nutrition consults, albumin infusions, supportive care --Malignant Hypertension;,moderate control Continue current antihypertensives, clonidine, hydralazine , Coreg , Lasix and when necessary medications --Depression; consult psych, patient denies suicidal thoughts or ideation --DVT prophylaxis Heparin subcutaneously 5000 units every 8 hours Plan of care reviewed with the patient and his nurse Closely monitor blood sugars Possible home health nurse for disease monitoring at discharge Possible discharge in 1-2 days if stable History Interval history: Patient seen and evaluated medical records reviewed No new events reported by nursing staff Patient was not given insulin last night even though blood sugars highly for unknown reason The patient is comfortable, tolerating diet Sugars are uncontrolled Alert awake oriented 3 Vital signs reviewed Hospitalist Physical - Constitutional Vitals: Temp Pulse Resp BP Pulse Ox 98.7 F 73 18 214/99 97 04/07/18 05:21 04/07/18 06:18 04/07/18 05:21 04/07/18 06:18 04/07/18 05:21 General appearance: Present: no acute distress, well-nourished, obese - EENT Eyes: Present: PERRL, EOM intact - Neck Neck: Present: supple, normal ROM - Respiratory Respiratory effort: normal Respiratory: bilateral: diminished, negative: rales, rhonchi, wheezing - Cardiovascular Rhythm: regular Heart Sounds: Present: S1 & S2 - Extremities Extremities: no ischemia Extremity abnormal: edema, ulceration (complete status left elbow, healing) - Abdominal General gastrointestinal: soft, non-tender, non-distended, normal bowel sounds - Integumentary Integumentary: Present: clear, warm - Psychiatric Psychiatric: appropriate mood/affect, cooperative - Neurologic Neurologic: CNII-XII intact, moves all extremities Results - Labs CBC & Chem 7: 04/07/18 05:46 04/07/18 05:46 Labs: Laboratory Last Values WBC 6.2 K/mm3 (4.5-11.0) 04/07/18 05:46 RBC 2.92 M/mm3 (3.65-5.03) L 04/07/18 05:46 Hgb 8.2 gm/dl (11.8-15.2) L 04/07/18 05:46 Hct 25.0 % (35.5-45.6) L 04/07/18 05:46 MCV 85 fl (84-94) 04/07/18 05:46 MCH 28 pg (28-32) 04/07/18 05:46 MCHC 33 % (32-34) 04/07/18 05:46 RDW 14.5 % (13.2-15.2) 04/07/18 05:46 Plt Count 410 K/mm3 (140-440) 04/07/18 05:46 Lymph % (Auto) 17.9 % (13.4-35.0) 04/07/18 05:46 [place] % (Auto) 12.9 % (0.0-7.3) H 04/07/18 05:46 Eos % (Auto) 2.6 % (0.0-4.3) 04/07/18 05:46 Baso % (Auto) 1.2 % (0.0-1.8) 04/07/18 05:46 Lymph # 1.1 K/mm3 (1.2-5.4) L 04/07/18 05:46 [place] # 0.8 K/mm3 (0.0-0.8) 04/07/18 05:46 Eos # 0.2 K/mm3 (0.0-0.4) 04/07/18 05:46 Baso # 0.1 K/mm3 (0.0-0.1) 04/07/18 05:46 Add Manual Diff Complete 04/04/18 06:05 Total Counted 100 04/04/18 06:05 Seg Neutrophils % 65.4 % (40.0-70.0) 04/07/18 05:46 Seg Neuts % (Manual) 55.0 % (40.0-70.0) 04/04/18 06:05 Band Neutrophils % 2.0 % 04/04/18 06:05 Lymphocytes % (Manual) 14.0 % (13.4-35.0) 04/04/18 06:05 Reactive Lymphs % (Man) 0 % 04/04/18 06:05 Monocytes % (Manual) 23.0 % (0.0-7.3) H 04/04/18 06:05 Eosinophils % (Manual) 4.0 % (0.0-4.3) 04/04/18 06:05 Basophils % (Manual) 0 % (0.0-1.8) 04/04/18 06:05 Metamyelocytes % 2.0 % 04/04/18 06:05 Myelocytes % 0 % 04/04/18 06:05 Promyelocytes % 0 % 04/04/18 06:05 Blast Cells % 0 % 04/04/18 06:05 Nucleated RBC % Not Reportable 04/04/18 06:05 Seg Neutrophils # 4.1 K/mm3 (1.8-7.7) 04/07/18 05:46 Seg Neutrophils # Man 2.9 K/mm3 (1.8-7.7) 04/04/18 06:05 Band Neutrophils # 0.1 K/mm3 04/04/18 06:05 Lymphocytes # (Manual) 0.7 K/mm3 (1.2-5.4) L 04/04/18 06:05 Abs React Lymphs (Man) 0.0 K/mm3 04/04/18 06:05 Monocytes # (Manual) 1.2 K/mm3 (0.0-0.8) H 04/04/18 06:05 Eosinophils # (Manual) 0.2 K/mm3 (0.0-0.4) 04/04/18 06:05 Basophils # (Manual) 0.0 K/mm3 (0.0-0.1) 04/04/18 06:05 Metamyelocytes # 0.1 K/mm3 04/04/18 06:05 Myelocytes # 0.0 K/mm3 04/04/18 06:05 Promyelocytes # 0.0 K/mm3 04/04/18 06:05 Blast Cells # 0.0 K/mm3 04/04/18 06:05 WBC Morphology Not Reportable 04/04/18 06:05 Hypersegmented Neuts Not Reportable 04/04/18 06:05 Hyposegmented Neuts Not Reportable 04/04/18 06:05 Hypogranular Neuts Not Reportable 04/04/18 06:05 Smudge Cells Not Reportable 04/04/18 06:05 Toxic Granulation Not Reportable 04/04/18 06:05 Toxic Vacuolation Not Reportable 04/04/18 06:05 Dohle Bodies Not Reportable 04/04/18 06:05 Pel[place]-Huet Anomaly Not Reportable 04/04/18 06:05 Loi Rods Not Reportable 04/04/18 06:05 Platelet Estimate Appears normal 04/04/18 06:05 Clumped Platelets Not Reportable 04/04/18 06:05 Plt Clumps, EDTA Not Reportable 04/04/18 06:05 Large Platelets Not Reportable 04/04/18 06:05 Giant Platelets Not Reportable 04/04/18 06:05 Platelet Satelliting Not Reportable 04/04/18 06:05 Plt Morphology Comment Not Reportable 04/04/18 06:05 RBC Morphology Not Reportable 04/04/18 06:05 Dimorphic RBCs Not Reportable 04/04/18 06:05 Polychromasia Not Reportable 04/04/18 06:05 Hypochromasia Few 04/04/18 06:05 Poikilocytosis Not Reportable 04/04/18 06:05 Anisocytosis 1+ 04/04/18 06:05 Microcytosis Not Reportable 04/04/18 06:05 Macrocytosis Not Reportable 04/04/18 06:05 Spherocytes Not Reportable 04/04/18 06:05 Pappenheimer Bodies Not Reportable 04/04/18 06:05 Sickle Cells Not Reportable 04/04/18 06:05 Target Cells Not Reportable 04/04/18 06:05 Tear Drop Cells Not Reportable 04/04/18 06:05 Ovalocytes Not Reportable 04/04/18 06:05 Helmet Cells Not Reportable 04/04/18 06:05 [place] Bodies Not Reportable 04/04/18 06:05 [place] Rings Not Reportable 04/04/18 06:05 [place] Cells Not Reportable 04/04/18 06:05 Bite Cells Not Reportable 04/04/18 06:05 Crenated Cell Not Reportable 04/04/18 06:05 Elliptocytes Not Reportable 04/04/18 06:05 Acanthocytes (Spur) Not Reportable 04/04/18 06:05 Rouleaux Not Reportable 04/04/18 06:05 Hemoglobin C Crystals Not Reportable 04/04/18 06:05 Schistocytes Not Reportable 04/04/18 06:05 Malaria parasites Not Reportable 04/04/18 06:05 Lev Bodies Not Reportable 04/04/18 06:05 Hem Pathologist Commnt No 04/04/18 06:05 POC ABG pH 7.405 (7.35-7.45) 03/28/18 03:49 POC ABG pCO2 38.6 (35-45) 03/28/18 03:49 POC ABG pO2 102 (80-105) 03/28/18 03:49 POC ABG HCO3 24.2 03/28/18 03:49 POC ABG Total CO2 25 03/28/18 03:49 POC ABG O2 Sat 98 03/28/18 03:49 POC ABG Base Excess 0 03/28/18 03:49 VBG pH 7.000 (7.320-7.420) L* 03/25/18 14:41 FiO2 25 % 03/28/18 03:49 Sodium 131 mmol/L (137-145) L D 04/07/18 05:46 Potassium 4.2 mmol/L (3.6-5.0) 04/07/18 05:46 Chloride 96.6 mmol/L (98-107) L 04/07/18 05:46 Carbon Dioxide 19 mmol/L (22-30) L 04/07/18 05:46 Anion Gap 20 mmol/L 04/07/18 05:46 BUN 26 mg/dL (9-20) H 04/07/18 05:46 Creatinine 2.7 mg/dL (0.8-1.5) H 04/07/18 05:46 Estimated GFR 30 ml/min 04/07/18 05:46 BUN/Creatinine Ratio 10 % 04/07/18 05:46 Glucose 247 mg/dL (75-100) H 04/07/18 05:46 POC Glucose 288 (70-105) H 04/07/18 06:00 Hemoglobin A1c 8.9 % (4-6) H 03/25/18 18:55 Lactic Acid 1.80 mmol/L (0.7-2.0) 03/26/18 04:25 Calcium 7.7 mg/dL (8.4-10.2) L 04/07/18 05:46 Phosphorus 3.70 mg/dL (2.5-4.5) 04/03/18 05:46 Magnesium 2.00 mg/dL (1.7-2.3) 04/05/18 06:10 Iron 54 ug/dL (49-181) 03/28/18 04:35 TIBC 115 mcg/dL (250-450) L 03/28/18 04:35 Transferrin 94 mg/dl (180-329) L 03/28/18 04:35 Ferritin 412.1 ng/mL (13.0-400.0) H 03/28/18 04:35 Total Bilirubin 0.30 mg/dL (0.1-1.2) 04/05/18 06:10 Direct Bilirubin < 0.2 mg/dL (0-0.2) 03/25/18 14:08 Indirect Bilirubin 0.1 mg/dL 03/25/18 14:08 AST 30 units/L (5-40) 04/05/18 06:10 ALT 25 units/L (7-56) 04/05/18 06:10 Alkaline Phosphatase 75 units/L (35-129) 04/05/18 06:10 Total Creatine Kinase 226 units/L (55-170) H 03/25/18 18:09 CK-MB (CK-2) 3.7 ng/mL (0.0-4.0) 03/25/18 18:09 CK-MB (CK-2) Rel Index 1.6 (0-4) 03/25/18 18:09 Troponin T 0.033 ng/mL (0.00-0.029) H 03/25/18 18:09 Total Protein 5.7 g/dL (6.3-8.2) L 04/05/18 06:10 Albumin 2.3 g/dL (3.9-5) L 04/05/18 06:10 Albumin/Globulin Ratio 0.7 % 04/05/18 06:10 Triglycerides 185 mg/dL (2-149) H 03/25/18 18:09 Cholesterol 215 mg/dL (50-199) H 03/25/18 18:09 LDL Cholesterol Direct 144 mg/dL (50-130) H 03/25/18 18:09 HDL Cholesterol 48 mg/dL (40-59) 03/25/18 18:09 Cholesterol/HDL Ratio 4.47 % 03/25/18 18:09 Urine Color Yellow (Yellow) 04/05/18 06:18 Urine Turbidity Clear (Clear) 04/05/18 06:18 Urine pH 5.0 (5.0-7.0) 04/05/18 06:18 Ur Specific [place] 1.013 (1.003-1.030) 04/05/18 06:18 Urine Protein >500 mg/dL (Negative) 04/05/18 06:18 Urine Glucose (UA) Neg mg/dL (Negative) 04/05/18 06:18 Urine Ketones Neg mg/dL (Negative) 04/05/18 06:18 Urine Blood Sm (Negative) 04/05/18 06:18 Urine Nitrite Neg (Negative) 04/05/18 06:18 Urine Bilirubin Neg (Negative) 04/05/18 06:18 Urine Urobilinogen < 2.0 mg/dL (<2.0) 04/05/18 06:18 Ur Leukocyte Esterase Neg (Negative) 04/05/18 06:18 Urine WBC (Auto) 3.0 /HPF (0.0-6.0) 04/05/18 06:18 Urine RBC (Auto) 2.0 /HPF (0.0-6.0) 04/05/18 06:18 Urine Bacteria (Auto) 1+ /HPF (Negative) 03/25/18 14:00 Uric Acid Crystals 2+ 04/05/18 06:18 Urine Mucus Few /HPF 04/05/18 06:18 Urine Yeast ([place]) 1+ /HPF 04/05/18 06:18 Urine Creatinine 112.0 mg/dL (0.1-20.0) H 06/08/18 06:18 Urine Sodium 39 mmol/L 04/05/18 06:18 Urine Urea Nitrogen 419 04/05/18 06:18 Random Vancomycin 14.6 ug/mL (0-40.0) 04/07/18 05:46 Urine Opiates Screen Presumptive negative 03/25/18 14:19 Urine Methadone Screen Presumptive negative 03/25/18 14:19 Ur Barbiturates Screen Presumptive negative 03/25/18 14:19 Ur Phencyclidine Scrn Presumptive negative 03/25/18 14:19 Ur Amphetamines Screen Presumptive negative 03/25/18 14:19 U Benzodiazepines Scrn Presumptive negative 03/25/18 14:19 Urine Cocaine Screen Presumptive negative 03/25/18 14:19 U Marijuana (THC) Screen Presumptive negative 03/25/18 14:19 Drugs of Abuse Note Disclamer 03/25/18 14:19 Blood Type O POSITIVE 04/04/18 20:14 Antibody Screen Negative 04/04/18 20:14 Crossmatch See Detail 04/04/18 20:14
[2018-04-07] MEDS: HumuLIN R SUB-Q SCH ×3 (09:36→17:14)
[2018-04-07] MEDS: MINIPRESS PO SCH ×2 (09:37→21:01)
[2018-04-07] MEDS: PEPCID PO SCH ×2 (09:37→21:01)
[2018-04-07] MEDS: BABY ASPIRIN PO SCH (09:38)
[2018-04-07] MEDS: COREG PO SCH ×2 (09:39→21:00)
[2018-04-07] MEDS: PROzac PO SCH (09:40)
[2018-04-07] MEDS: LASIX IV SCH (09:41)
[2018-04-07] MEDS: SODIUM CHLORIDE FLUSH SYRINGE 10 ML IV SCH ×2 (09:43→21:00)
--- NOTE | 2018-04-07 10:59 | Progress Note ---
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: Volume Overload: Hypoalbuminemia: -Renal function reviewed, SCr level increased to 2.7 today, yesterday's SCr level was 1.9 -Check BNP -Repeat urine lytes -Check postvoid residual Renal US -Started on Lasix 40 mg IV daily for now, will monitor closely, pt did have acute rise in SCr level, will keep on same dose for now, but adjust/stop if renal function continues to worsen -S/p CXR on 04/06/18 showed increased bilateral reticular interstitial opacities. No consolidating pneumonia, suspect small pleural effusion or pleural effusions -Renally dose meds -Strict intake and output -Albumin 25 g IVPB every 8 hours x 6 doses -Obtain daily weight -Beard Catheter: No -Intake= 1880 ml Output= 3250 ml ( Net= -1370 ml) -Renal plan d/w Dr Adrian -Continue supportive therapy Acute Respiratory Failure: -Extubated -Pulmonology on board Essential Hypertension: -On clonidine patch and coreg -Suspect volume component could also be contributing to HTN -Hydralazine dose increased to 100 mg TID -On Lasix 40 mg IV daily -Adjust medications as needed DKA: -Resolved Subjective Principal diagnosis: Acute hypoxic respiratory failure, DKA, BELKIS, Acute encephalopathy Interval history: Pt sitting up on side of bed, states worsening bilateral lower extremity edema, denies shortness of breath, no family at bedside Objective - Vital Signs Vital signs: Vital Signs - 12hr 04/07/18 04/07/18 04/07/18 00:01 00:38 04:49 Temperature 99.2 F Pulse Rate 87 85 76 Respiratory 20 Rate Blood Pressure 182/90 214/99 Blood Pressure 182/90 [Right] O2 Sat by Pulse 93 94 93 Oximetry 04/07/18 04/07/18 04/07/18 04:51 05:21 06:17 Temperature 98.7 F Pulse Rate 69 73 73 Respiratory 18 Rate Blood Pressure 142/92 214/99 Blood Pressure 214/99 [Right] O2 Sat by Pulse 97 97 Oximetry 04/07/18 04/07/18 04/07/18 06:18 07:26 08:32 Temperature 98.8 F Pulse Rate 73 87 Respiratory 24 19 Rate Blood Pressure 214/99 199/86 Blood Pressure [Right] O2 Sat by Pulse 94 Oximetry 04/07/18 04/07/18 09:37 09:39 Temperature Pulse Rate 87 87 Respiratory Rate Blood Pressure 199/86 199/86 Blood Pressure [Right] O2 Sat by Pulse Oximetry - General Appearance General appearance: well-developed (no acute distress) EENT: ATNC Neck: no JVD Respiratory: Present: Other (Lung sounds decreased bilaterally, unlabored) Cardiology: regular, S1S2 Gastrointestinal: normoactive bowel sounds, no tenderness Integumentary: warm and dry Neurologic: alert and oriented x3 Musculoskeletal: other (2+ edema to both lower extremities) Psychiatric: cooperative - Lab 04/07/18 05:46 04/07/18 05:46 Most recent lab results Calcium 7.7 mg/dL (8.4-10.2) L 04/07/18 05:46 Phosphorus 3.70 mg/dL (2.5-4.5) 04/03/18 05:46 Magnesium 2.00 mg/dL (1.7-2.3) 04/05/18 06:10 Urine Creatinine 112.0 mg/dL (0.1-20.0) H 04/05/18 06:18 Urine Sodium 39 mmol/L 04/05/18 06:18
[2018-04-07 15:01] LABS: Chloride, Urine 91.4 mmolL (110-250); Creatinine,Urine 76.8 mg/dL (0.1-20.0)
--- NOTE | 2018-04-07 20:45 | Progress Note ---
Assessment and Plan Patient is in deep sleep at this time. Patient is on on room air .O2 saturation 98%. No acute respiratory distress. Patient afebrile. No leukocytosis. - Patient Problems (1) Acute respiratory failure Current Visit: Yes Status: Acute Qualifiers: Respiratory failure complication: hypoxia Qualified Code(s): J96.01 - Acute respiratory failure with hypoxia Plan to address problem: Improved. No complaint of shortness of breath.O2 saturation 98% on room air. (2) DKA (diabetic ketoacidoses) Current Visit: Yes Status: Acute Qualifiers: Diabetes mellitus type: type 1 Diabetes mellitus complication detail: with coma Qualified Code(s): E10.11 - Type 1 diabetes mellitus with ketoacidosis with coma Plan to address problem: Improving. Management as per primary care. (3) BELKIS (acute kidney injury) Current Visit: Yes Status: Acute Plan to address problem: Management as per primary care and nephrology. (4) Pulmonary infiltrate in left lung on chest x-ray Current Visit: Yes Status: Acute Plan to address problem: Patient is on zosyn and vancomycin. Recommend to add Zithromax also. Subjective Date of service: 04/07/18 Principal diagnosis: Acute hypoxic respiratory failure, DKA, BELKIS, Acute encephalopathy Interval history: Patient is in deep sleep at this time. Patient is on on room air .O2 saturation 98%. No acute respiratory distress. Patient afebrile. No leukocytosis. Objective Vital Signs - 12hr 04/07/18 04/07/18 04/07/18 09:37 09:39 10:00 Pulse Rate 87 87 80 Blood Pressure 199/86 199/86 Blood Pressure [Right] 04/07/18 04/07/18 13:01 14:15 Pulse Rate 97 H 87 Blood Pressure 198/68 Blood Pressure 147/69 [Right] Constitutional: no acute distress, asleep, other (middle aged AAM, normocephalic and atraumatic) Eyes: non-icteric ENT: oropharynx moist, other (mallampatti 2) Neck: supple, no lymphadenopathy, no JVD, other (no thyromegaly) Effort: normal Ascultation: Bilateral: diminished breath sounds, rhonchi (posterior base) Percussion: Bilateral: not dull Cardiovascular: regular rate and rhythm, other (No R/M) Gastrointestinal: normoactive bowel sounds, soft, non-tender, non-distended, other ( No HSM) Integumentary: normal Extremities: no cyanosis, pulses normal, no ischemia or petechiae, edema (to hands) Neurologic: non-focal exam (grossly), pupils equal and round, CN II-XII normal, motor strength normal and Psychiatric: other (Patient is in deep sleep.) CBC and BMP: 04/07/18 05:46 04/07/18 05:46 ABG, PT/INR, D-dimer: ABG POC ABG pH 7.405 (7.35-7.45) 03/28/18 03:49 POC ABG pCO2 38.6 (35-45) 03/28/18 03:49 POC ABG pO2 102 (80-105) 03/28/18 03:49 POC ABG HCO3 24.2 03/28/18 03:49 POC ABG Total CO2 25 03/28/18 03:49 POC ABG O2 Sat 98 03/28/18 03:49 Abnormal lab findings: Abnormal Labs 03/25/18 03/25/18 03/25/18 13:48 14:00 14:00 WBC 15.3 H RBC Hgb 10.5 L Hct MCV 95 H MCH 27 L MCHC 28 L RDW Plt Count Lymph % (Auto) 8.5 L [place] % (Auto) Lymph # [place] # Seg Neutrophils % 86.4 H Seg Neuts % (Manual) Lymphocytes % (Manual) Monocytes % (Manual) Seg Neutrophils # 13.2 H Lymphocytes # (Manual) Monocytes # (Manual) POC ABG pH POC ABG pCO2 POC ABG pO2 VBG pH Sodium 132 L Potassium 8.1 H* Chloride 87.8 L Carbon Dioxide 3 L* BUN 43 H Creatinine 2.6 H Glucose 1026 H* POC Glucose > 500 H Hemoglobin A1c Lactic Acid Calcium Phosphorus TIBC Transferrin Ferritin AST Total Creatine Kinase Troponin T NT-Pro-B Natriuret Pep Total Protein Albumin Triglycerides Cholesterol LDL Cholesterol Direct Urine Creatinine Urine Chloride Crossmatch 03/25/18 03/25/18 03/25/18 14:00 14:08 14:29 WBC RBC Hgb Hct MCV MCH MCHC RDW Plt Count Lymph % (Auto) [place] % (Auto) Lymph # [place] # Seg Neutrophils % Seg Neuts % (Manual) Lymphocytes % (Manual) Monocytes % (Manual) Seg Neutrophils # Lymphocytes # (Manual) Monocytes # (Manual) POC ABG pH 6.952 L POC ABG pCO2 25.8 L POC ABG pO2 559 H VBG pH Sodium Potassium Chloride Carbon Dioxide BUN Creatinine Glucose POC Glucose Hemoglobin A1c Lactic Acid 10.10 H* Calcium Phosphorus 8.70 H TIBC Transferrin Ferritin AST Total Creatine Kinase Troponin T NT-Pro-B Natriuret Pep Total Protein Albumin 2.6 L Triglycerides Cholesterol LDL Cholesterol Direct Urine Creatinine Urine Chloride Crossmatch 03/25/18 03/25/18 03/25/18 14:41 15:40 15:40 WBC RBC Hgb Hct MCV MCH MCHC RDW Plt Count Lymph % (Auto) [place] % (Auto) Lymph # [place] # Seg Neutrophils % Seg Neuts % (Manual) Lymphocytes % (Manual) Monocytes % (Manual) Seg Neutrophils # Lymphocytes # (Manual) Monocytes # (Manual) POC ABG pH POC ABG pCO2 POC ABG pO2 VBG pH 7.000 L* Sodium Potassium 6.7 H* Chloride 97.5 L Carbon Dioxide 5 L* BUN 43 H Creatinine 2.5 H Glucose 893 H* POC Glucose Hemoglobin A1c Lactic Acid Calcium 7.5 L Phosphorus 9.10 H TIBC Transferrin Ferritin AST Total Creatine Kinase Troponin T NT-Pro-B Natriuret Pep Total Protein Albumin Triglycerides Cholesterol LDL Cholesterol Direct Urine Creatinine Urine Chloride Crossmatch 03/25/18 03/25/18 03/25/18 18:09 18:12 18:55 WBC RBC Hgb Hct MCV MCH MCHC RDW Plt Count Lymph % (Auto) [place] % (Auto) Lymph # [place] # Seg Neutrophils % Seg Neuts % (Manual) Lymphocytes % (Manual) Monocytes % (Manual) Seg Neutrophils # Lymphocytes # (Manual) Monocytes # (Manual) POC ABG pH POC ABG pCO2 POC ABG pO2 VBG pH Sodium 133 L Potassium 5.7 H Chloride 93.1 L Carbon Dioxide 10 L BUN 43 H Creatinine 2.5 H Glucose 786 H* POC Glucose Hemoglobin A1c 8.9 H Lactic Acid Calcium 7.8 L Phosphorus TIBC Transferrin Ferritin AST Total Creatine Kinase 226 H Troponin T 0.033 H NT-Pro-B Natriuret Pep Total Protein Albumin Triglycerides 185 H Cholesterol 215 H LDL Cholesterol Direct 144 H Urine Creatinine Urine Chloride Crossmatch 03/25/18 03/25/18 03/25/18 18:55 21:00 21:03 WBC RBC Hgb Hct MCV MCH MCHC RDW Plt Count Lymph % (Auto) [place] % (Auto) Lymph # [place] # Seg Neutrophils % Seg Neuts % (Manual) Lymphocytes % (Manual) Monocytes % (Manual) Seg Neutrophils # Lymphocytes # (Manual) Monocytes # (Manual) POC ABG pH POC ABG pCO2 POC ABG pO2 VBG pH Sodium 136 L Potassium 6.7 H* Chloride Carbon Dioxide 7 L* BUN 45 H Creatinine 2.6 H Glucose 879 H* POC Glucose > 500 H Hemoglobin A1c Lactic Acid Calcium 7.8 L Phosphorus 9.20 H TIBC Transferrin Ferritin AST Total Creatine Kinase Troponin T NT-Pro-B Natriuret Pep Total Protein Albumin Triglycerides Cholesterol LDL Cholesterol Direct Urine Creatinine Urine Chloride Crossmatch 03/25/18 03/25/18 03/25/18 21:39 22:06 23:20 WBC RBC Hgb Hct MCV MCH MCHC RDW Plt Count Lymph % (Auto) [place] % (Auto) Lymph # [place] # Seg Neutrophils % Seg Neuts % (Manual) Lymphocytes % (Manual) Monocytes % (Manual) Seg Neutrophils # Lymphocytes # (Manual) Monocytes # (Manual) POC ABG pH 7.272 L POC ABG pCO2 14.2 L POC ABG pO2 263 H VBG pH Sodium Potassium Chloride Carbon Dioxide 7 L* BUN 47 H Creatinine 2.9 H Glucose 702 H* POC Glucose > 500 H Hemoglobin A1c Lactic Acid Calcium 7.6 L Phosphorus TIBC Transferrin Ferritin AST Total Creatine Kinase Troponin T NT-Pro-B Natriuret Pep Total Protein Albumin Triglycerides Cholesterol LDL Cholesterol Direct Urine Creatinine Urine Chloride Crossmatch 03/25/18 03/26/18 03/26/18 23:20 00:17 01:08 WBC RBC Hgb Hct MCV MCH MCHC RDW Plt Count Lymph % (Auto) [place] % (Auto) Lymph # [place] # Seg Neutrophils % Seg Neuts % (Manual) Lymphocytes % (Manual) Monocytes % (Manual) Seg Neutrophils # Lymphocytes # (Manual) Monocytes # (Manual) POC ABG pH POC ABG pCO2 POC ABG pO2 VBG pH Sodium Potassium Chloride Carbon Dioxide BUN Creatinine Glucose POC Glucose > 500 H 447 H 484 H Hemoglobin A1c Lactic Acid Calcium Phosphorus TIBC Transferrin Ferritin AST Total Creatine Kinase Troponin T NT-Pro-B Natriuret Pep Total Protein Albumin Triglycerides Cholesterol LDL Cholesterol Direct Urine Creatinine Urine Chloride Crossmatch 03/26/18 03/26/1803/26/18 02:31 03:07 04:09 WBC RBC Hgb Hct MCV MCH MCHC RDW Plt Count Lymph % (Auto) [place] % (Auto) Lymph # [place] # Seg Neutrophils % Seg Neuts % (Manual) Lymphocytes % (Manual) Monocytes % (Manual) Seg Neutrophils # Lymphocytes # (Manual) Monocytes # (Manual) POC ABG pH POC ABG pCO2 POC ABG pO2 VBG pH Sodium Potassium Chloride Carbon Dioxide BUN Creatinine Glucose POC Glucose > 500 H 467 H 361 H Hemoglobin A1c Lactic Acid Calcium Phosphorus TIBC Transferrin Ferritin AST Total Creatine Kinase Troponin T NT-Pro-B Natriuret Pep Total Protein Albumin Triglycerides Cholesterol LDL Cholesterol Direct Urine Creatinine Urine Chloride Crossmatch 03/26/18 03/26/18 03/26/18 04:25 05:24 06:19 WBC RBC Hgb Hct MCV MCH MCHC RDW Plt Count Lymph % (Auto) [place] % (Auto) Lymph # [place] # Seg Neutrophils % Seg Neuts % (Manual) Lymphocytes % (Manual) Monocytes % (Manual) Seg Neutrophils # Lymphocytes # (Manual) Monocytes # (Manual) POC ABG pH POC ABG pCO2 POC ABG pO2 VBG pH Sodium 150 H D Potassium 3.4 L D Chloride 118.3 H Carbon Dioxide 16 L D BUN 45 H Creatinine 2.7 H Glucose 278 H POC Glucose 306 H 188 H Hemoglobin A1c Lactic Acid Calcium 7.7 L Phosphorus TIBC Transferrin Ferritin AST Total Creatine Kinase Troponin T NT-Pro-B Natriuret Pep Total Protein Albumin Triglycerides Cholesterol LDL Cholesterol Direct Urine Creatinine Urine Chloride Crossmatch 03/26/18 03/26/18 03/26/18 07:09 08:20 09:12 WBC RBC Hgb Hct MCV MCH MCHC RDW Plt Count Lymph % (Auto) [place] % (Auto) Lymph # [place] # Seg Neutrophils % Seg Neuts % (Manual) Lymphocytes % (Manual) Monocytes % (Manual) Seg Neutrophils # Lymphocytes # (Manual) Monocytes # (Manual) POC ABG pH 7.530 H POC ABG pCO2 22.0 L POC ABG pO2 147 H VBG pH Sodium Potassium Chloride Carbon Dioxide BUN Creatinine Glucose POC Glucose 148 H 170 H Hemoglobin A1c Lactic Acid Calcium Phosphorus TIBC Transferrin Ferritin AST Total Creatine Kinase Troponin T NT-Pro-B Natriuret Pep Total Protein Albumin Triglycerides Cholesterol LDL Cholesterol Direct Urine Creatinine Urine Chloride Crossmatch 03/26/18 03/26/1803/26/18 09:15 10:30 10:46 WBC RBC Hgb Hct MCV MCH MCHC RDW Plt Count Lymph % (Auto) [place] % (Auto) Lymph # [place] # Seg Neutrophils % Seg Neuts % (Manual) Lymphocytes % (Manual) Monocytes % (Manual) Seg Neutrophils # Lymphocytes # (Manual) Monocytes # (Manual) POC ABG pH POC ABG pCO2 POC ABG pO2 VBG pH Sodium 152 H Potassium 3.1 L Chloride 121.4 H Carbon Dioxide BUN 43 H Creatinine 2.6 H Glucose 105 H POC Glucose 177 H 125 H Hemoglobin A1c Lactic Acid Calcium 7.5 L Phosphorus TIBC Transferrin Ferritin AST Total Creatine Kinase Troponin T NT-Pro-B Natriuret Pep Total Protein Albumin Triglycerides Cholesterol LDL Cholesterol Direct Urine Creatinine Urine Chloride Crossmatch 03/26/18 03/26/18 03/26/18 14:57 15:35 18:12 WBC RBC Hgb Hct MCV MCH MCHC RDW Plt Count Lymph % (Auto) [place] % (Auto) Lymph # [place] # Seg Neutrophils % Seg Neuts % (Manual) Lymphocytes % (Manual) Monocytes % (Manual) Seg Neutrophils # Lymphocytes # (Manual) Monocytes # (Manual) POC ABG pH POC ABG pCO2 POC ABG pO2 VBG pH Sodium 148 H Potassium Chloride 117.5 H Carbon Dioxide 18 L BUN 43 H Creatinine 2.5 H Glucose 135 H POC Glucose 159 H 245 H Hemoglobin A1c Lactic Acid Calcium 7.3 L Phosphorus TIBC Transferrin Ferritin AST Total Creatine Kinase Troponin T NT-Pro-B Natriuret Pep Total Protein Albumin Triglycerides Cholesterol LDL Cholesterol Direct Urine Creatinine Urine Chloride Crossmatch 03/26/18 03/26/18 03/27/18 19:27 21:42 02:03 WBC RBC Hgb Hct MCV MCH MCHC RDW Plt Count Lymph % (Auto) [place] % (Auto) Lymph # [place] # Seg Neutrophils % Seg Neuts % (Manual) Lymphocytes % (Manual) Monocytes % (Manual) Seg Neutrophils # Lymphocytes # (Manual) Monocytes # (Manual) POC ABG pH POC ABG pCO2 POC ABG pO2 VBG pH Sodium Potassium Chloride 115.0 H Carbon Dioxide 20 L BUN 42 H Creatinine 2.4 H Glucose 221 H POC Glucose 261 H 254 H Hemoglobin A1c Lactic Acid Calcium 7.1 L Phosphorus TIBC Transferrin Ferritin AST Total Creatine Kinase Troponin T NT-Pro-B Natriuret Pep Total Protein Albumin Triglycerides Cholesterol LDL Cholesterol Direct Urine Creatinine Urine Chloride Crossmatch 03/27/18 03/27/18 03/27/18 03:35 03:35 05:20 WBC 12.3 H RBC 3.05 L Hgb 8.3 L Hct 25.3 L D MCV 83 L MCH 27 L MCHC RDW Plt Count Lymph % (Auto) [place] % (Auto) 8.6 H Lymph # [place] # 1.1 H Seg Neutrophils % 76.5 H Seg Neuts % (Manual) Lymphocytes % (Manual) Monocytes % (Manual) Seg Neutrophils # 9.4 H Lymphocytes # (Manual) Monocytes # (Manual) POC ABG pH POC ABG pCO2 POC ABG pO2 VBG pH Sodium Potassium Chloride 112.6 H Carbon Dioxide BUN 36 H Creatinine 2.1 H Glucose 244 H POC Glucose 263 H Hemoglobin A1c Lactic Acid Calcium 7.1 L Phosphorus TIBC Transferrin Ferritin AST 44 H Total Creatine Kinase Troponin T NT-Pro-B Natriuret Pep Total Protein 5.1 L D Albumin 2.1 L Triglycerides Cholesterol LDL Cholesterol Direct Urine Creatinine Urine Chloride Crossmatch 03/27/18 03/27/18 03/27/18 08:22 13:00 14:06 WBC RBC Hgb Hct MCV MCH MCHC RDW Plt Count Lymph % (Auto) [place] % (Auto) Lymph # [place] # Seg Neutrophils % Seg Neuts % (Manual) Lymphocytes % (Manual) Monocytes % (Manual) Seg Neutrophils # Lymphocytes # (Manual) Monocytes # (Manual) POC ABG pH POC ABG pCO2 34.7 L POC ABG pO2 VBG pH Sodium Potassium Chloride Carbon Dioxide BUN Creatinine Glucose POC Glucose 306 H 233 H Hemoglobin A1c Lactic Acid Calcium Phosphorus TIBC Transferrin Ferritin AST Total Creatine Kinase Troponin T NT-Pro-B Natriuret Pep Total Protein Albumin Triglycerides Cholesterol LDL Cholesterol Direct Urine Creatinine Urine Chloride Crossmatch 03/27/18 03/27/18 03/27/18 16:15 18:11 21:44 WBC RBC Hgb Hct MCV MCH MCHC RDW Plt Count Lymph % (Auto) [place] % (Auto) Lymph # [place] # Seg Neutrophils % Seg Neuts % (Manual) Lymphocytes % (Manual) Monocytes % (Manual) Seg Neutrophils # Lymphocytes # (Manual) Monocytes # (Manual) POC ABG pH POC ABG pCO2 POC ABG pO2 VBG pH Sodium Potassium Chloride Carbon Dioxide BUN Creatinine Glucose POC Glucose 243 H 226 H 224 H Hemoglobin A1c Lactic Acid Calcium Phosphorus TIBC Transferrin Ferritin AST Total Creatine Kinase Troponin T NT-Pro-B Natriuret Pep Total Protein Albumin Triglycerides Cholesterol LDL Cholesterol Direct Urine Creatinine Urine Chloride Crossmatch 03/28/18 03/28/18 03/28/18 02:07 04:35 04:35 WBC RBC Hgb Hct MCV MCH MCHC RDW Plt Count Lymph % (Auto) [place] % (Auto) Lymph # [place] # Seg Neutrophils % Seg Neuts % (Manual) Lymphocytes % (Manual) Monocytes % (Manual) Seg Neutrophils # Lymphocytes # (Manual) Monocytes # (Manual) POC ABG pH POC ABG pCO2 POC ABG pO2 VBG pH Sodium Potassium Chloride Carbon Dioxide BUN Creatinine Glucose POC Glucose 220 H Hemoglobin A1c Lactic Acid Calcium Phosphorus TIBC 115 L Transferrin 94 L Ferritin 412.1 H AST Total Creatine Kinase Troponin T NT-Pro-B Natriuret Pep Total Protein Albumin Triglycerides Cholesterol LDL Cholesterol Direct Urine Creatinine Urine Chloride Crossmatch 03/28/18 03/28/18 03/28/18 05:27 09:52 10:59 WBC RBC 3.22 L Hgb 9.1 L Hct 26.8 L MCV 83 L MCH MCHC RDW Plt Count 134 L Lymph % (Auto) [place] % (Auto) Lymph # [place] # Seg Neutrophils % Seg Neuts % (Manual) Lymphocytes % (Manual) Monocytes % (Manual) Seg Neutrophils # Lymphocytes # (Manual) Monocytes # (Manual) POC ABG pH POC ABG pCO2 POC ABG pO2 VBG pH Sodium Potassium Chloride Carbon Dioxide BUN Creatinine Glucose POC Glucose 280 H 332 H Hemoglobin A1c Lactic Acid Calcium Phosphorus TIBC Transferrin Ferritin AST Total Creatine Kinase Troponin T NT-Pro-B Natriuret Pep Total Protein Albumin Triglycerides Cholesterol LDL Cholesterol Direct Urine Creatinine Urine Chloride Crossmatch 03/28/18 03/28/18 03/28/18 10:59 14:39 17:47 WBC RBC Hgb Hct MCV MCH MCHC RDW Plt Count Lymph % (Auto) [place] % (Auto) Lymph # [place] # Seg Neutrophils % Seg Neuts % (Manual) Lymphocytes % (Manual) Monocytes % (Manual) Seg Neutrophils # Lymphocytes # (Manual) Monocytes # (Manual) POC ABG pH POC ABG pCO2 POC ABG pO2 VBG pH Sodium 136 L Potassium Chloride Carbon Dioxide BUN 29 H Creatinine Glucose 310 H POC Glucose 250 H 132 H Hemoglobin A1c Lactic Acid Calcium 7.0 L Phosphorus TIBC Transferrin Ferritin AST Total Creatine Kinase Troponin T NT-Pro-B Natriuret Pep Total Protein Albumin Triglycerides Cholesterol LDL Cholesterol Direct Urine Creatinine Urine Chloride Crossmatch 03/29/18 03/29/18 03/29/18 01:49 04:23 05:45 WBC RBC 3.13 L Hgb 8.8 L Hct 25.8 L MCV 82 L MCH MCHC RDW 12.7 L Plt Count 132 L Lymph % (Auto) 10.8 L [place] % (Auto) 9.1 H Lymph # 1.0 L [place] # Seg Neutrophils % 79.1 H Seg Neuts % (Manual) Lymphocytes % (Manual) Monocytes % (Manual) Seg Neutrophils # Lymphocytes # (Manual) Monocytes # (Manual) POC ABG pH POC ABG pCO2 POC ABG pO2 VBG pH Sodium 134 L Potassium Chloride Carbon Dioxide BUN 27 H Creatinine Glucose 172 H POC Glucose 122 H Hemoglobin A1c Lactic Acid Calcium 7.1 L Phosphorus TIBC Transferrin Ferritin AST Total Creatine Kinase Troponin T NT-Pro-B Natriuret Pep Total Protein Albumin Triglycerides Cholesterol LDL Cholesterol Direct Urine Creatinine Urine Chloride Crossmatch 03/29/18 03/29/18 03/29/18 05:57 09:19 13:09 WBC RBC Hgb Hct MCV MCH MCHC RDW Plt Count Lymph % (Auto) [place] % (Auto) Lymph # [place] # Seg Neutrophils % Seg Neuts % (Manual) Lymphocytes % (Manual) Monocytes % (Manual) Seg Neutrophils # Lymphocytes # (Manual) Monocytes # (Manual) POC ABG pH POC ABG pCO2 POC ABG pO2 VBG pH Sodium Potassium Chloride Carbon Dioxide BUN Creatinine Glucose POC Glucose 224 H 316 H 345 H Hemoglobin A1c Lactic Acid Calcium Phosphorus TIBC Transferrin Ferritin AST Total Creatine Kinase Troponin T NT-Pro-B Natriuret Pep Total Protein Albumin Triglycerides Cholesterol LDL Cholesterol Direct Urine Creatinine Urine Chloride Crossmatch 03/29/18 03/29/18 03/29/18 16:27 22:26 22:36 WBC RBC Hgb Hct MCV MCH MCHC RDW Plt Count Lymph % (Auto) [place] % (Auto) Lymph # [place] # Seg Neutrophils % Seg Neuts % (Manual) Lymphocytes % (Manual) Monocytes % (Manual) Seg Neutrophils # Lymphocytes # (Manual) Monocytes # (Manual) POC ABG pH POC ABG pCO2 POC ABG pO2 VBG pH Sodium Potassium Chloride Carbon Dioxide BUN Creatinine Glucose POC Glucose 210 H < 40 L 172 H Hemoglobin A1c Lactic Acid Calcium Phosphorus TIBC Transferrin Ferritin AST Total Creatine Kinase Troponin T NT-Pro-B Natriuret Pep Total Protein Albumin Triglycerides Cholesterol LDL Cholesterol Direct Urine Creatinine Urine Chloride Crossmatch 03/30/18 03/30/18 03/30/18 00:07 05:12 06:39 WBC RBC 2.95 L Hgb 8.3 L Hct 24.6 L MCV 83 L MCH MCHC RDW 12.9 L Plt Count Lymph % (Auto) [place] % (Auto) 13.5 H Lymph # [place] # 0.9 H Seg Neutrophils % Seg Neuts % (Manual) Lymphocytes % (Manual) Monocytes % (Manual) Seg Neutrophils # Lymphocytes # (Manual) Monocytes # (Manual) POC ABG pH POC ABG pCO2 POC ABG pO2 VBG pH Sodium Potassium Chloride Carbon Dioxide BUN Creatinine Glucose POC Glucose 69 L 213 H Hemoglobin A1c Lactic Acid Calcium Phosphorus TIBC Transferrin Ferritin AST Total Creatine Kinase Troponin T NT-Pro-B Natriuret Pep Total Protein Albumin Triglycerides Cholesterol LDL Cholesterol Direct Urine Creatinine Urine Chloride Crossmatch 03/30/18 03/30/18 03/30/18 06:39 10:06 13:59 WBC RBC Hgb Hct MCV MCH MCHC RDW Plt Count Lymph % (Auto) [place] % (Auto) Lymph # [place] # Seg Neutrophils % Seg Neuts % (Manual) Lymphocytes % (Manual) Monocytes % (Manual) Seg Neutrophils # Lymphocytes # (Manual) Monocytes # (Manual) POC ABG pH POC ABG pCO2 POC ABG pO2 VBG pH Sodium 133 L Potassium 3.5 L D Chloride 95.6 L Carbon Dioxide BUN 34 H Creatinine Glucose 241 H POC Glucose 368 H 237 H Hemoglobin A1c Lactic Acid Calcium 7.3 L Phosphorus TIBC Transferrin Ferritin AST Total Creatine Kinase Troponin T NT-Pro-B Natriuret Pep Total Protein Albumin Triglycerides Cholesterol LDL Cholesterol Direct Urine Creatinine Urine Chloride Crossmatch 03/30/18 03/30/18 03/30/18 16:39 20:47 21:30 WBC RBC Hgb Hct MCV MCH MCHC RDW Plt Count Lymph % (Auto) [place] % (Auto) Lymph # [place] # Seg Neutrophils % Seg Neuts % (Manual) Lymphocytes % (Manual) Monocytes % (Manual) Seg Neutrophils # Lymphocytes # (Manual) Monocytes # (Manual) POC ABG pH POC ABG pCO2 POC ABG pO2 VBG pH Sodium Potassium Chloride Carbon Dioxide BUN Creatinine Glucose POC Glucose 176 H 60 L 113 H Hemoglobin A1c Lactic Acid Calcium Phosphorus TIBC Transferrin Ferritin AST Total Creatine Kinase Troponin T NT-Pro-B Natriuret Pep Total Protein Albumin Triglycerides Cholesterol LDL Cholesterol Direct Urine Creatinine Urine Chloride Crossmatch 03/31/18 03/31/18 03/31/18 02:07 06:45 07:24 WBC RBC 3.06 L Hgb 8.6 L Hct 25.3 L MCV 83 L MCH MCHC RDW 12.7 L Plt Count Lymph % (Auto) [place] % (Auto) Lymph # [place] # Seg Neutrophils % Seg Neuts % (Manual) 73.0 H Lymphocytes % (Manual) 6.0 L Monocytes % (Manual) 21.0 H Seg Neutrophils # Lymphocytes # (Manual) 0.4 L Monocytes # (Manual) 1.4 H POC ABG pH POC ABG pCO2 POC ABG pO2 VBG pH Sodium Potassium Chloride Carbon Dioxide BUN Creatinine Glucose POC Glucose 140 H 260 H Hemoglobin A1c Lactic Acid Calcium Phosphorus TIBC Transferrin Ferritin AST Total Creatine Kinase Troponin T NT-Pro-B Natriuret Pep Total Protein Albumin Triglycerides Cholesterol LDL Cholesterol Direct Urine Creatinine Urine Chloride Crossmatch 03/31/18 03/31/18 03/31/18 07:24 11:51 13:08 WBC RBC Hgb Hct MCV MCH MCHC RDW Plt Count Lymph % (Auto) [place] % (Auto) Lymph # [place] # Seg Neutrophils % Seg Neuts % (Manual) Lymphocytes % (Manual) Monocytes % (Manual) Seg Neutrophils # Lymphocytes # (Manual) Monocytes # (Manual) POC ABG pH POC ABG pCO2 POC ABG pO2 VBG pH Sodium 134 L Potassium Chloride Carbon Dioxide BUN 36 H Creatinine 1.8 H Glucose 271 H POC Glucose > 500 H > 500 H Hemoglobin A1c Lactic Acid Calcium 7.3 L Phosphorus TIBC Transferrin Ferritin AST Total Creatine Kinase Troponin T NT-Pro-B Natriuret Pep Total Protein Albumin Triglycerides Cholesterol LDL Cholesterol Direct Urine Creatinine Urine Chloride Crossmatch 03/31/18 03/31/18 03/31/18 14:00 16:15 16:29 WBC RBC Hgb Hct MCV MCH MCHC RDW Plt Count Lymph % (Auto) [place] % (Auto) Lymph # [place] # Seg Neutrophils % Seg Neuts % (Manual) Lymphocytes % (Manual) Monocytes % (Manual) Seg Neutrophils # Lymphocytes # (Manual) Monocytes # (Manual) POC ABG pH POC ABG pCO2 POC ABG pO2 VBG pH Sodium Potassium Chloride Carbon Dioxide BUN Creatinine Glucose POC Glucose > 500 H 405 H 424 H Hemoglobin A1c Lactic Acid Calcium Phosphorus TIBC Transferrin Ferritin AST Total Creatine Kinase Troponin T NT-Pro-B Natriuret Pep Total Protein Albumin Triglycerides Cholesterol LDL Cholesterol Direct Urine Creatinine Urine Chloride Crossmatch 03/31/18 04/01/18 04/01/18 21:14 00:21 05:51 WBC RBC 2.55 L Hgb 7.1 L Hct 21.2 L MCV 83 L MCH MCHC RDW 12.5 L Plt Count Lymph % (Auto) [place] % (Auto) Lymph # [place] # Seg Neutrophils % Seg Neuts % (Manual) Lymphocytes % (Manual) Monocytes % (Manual) 22.0 H Seg Neutrophils # Lymphocytes # (Manual) Monocytes # (Manual) 1.1 H POC ABG pH POC ABG pCO2 POC ABG pO2 VBG pH Sodium Potassium Chloride Carbon Dioxide BUN Creatinine Glucose POC Glucose 393 H 384 H Hemoglobin A1c Lactic Acid Calcium Phosphorus TIBC Transferrin Ferritin AST Total Creatine Kinase Troponin T NT-Pro-B Natriuret Pep Total Protein Albumin Triglycerides Cholesterol LDL Cholesterol Direct Urine Creatinine Urine Chloride Crossmatch 04/01/18 04/01/18 04/01/18 05:51 06:52 11:13 WBC RBC Hgb Hct MCV MCH MCHC RDW Plt Count Lymph % (Auto) [place] % (Auto) Lymph # [place] # Seg Neutrophils % Seg Neuts % (Manual) Lymphocytes % (Manual) Monocytes % (Manual) Seg Neutrophils # Lymphocytes # (Manual) Monocytes # (Manual) POC ABG pH POC ABG pCO2 POC ABG pO2 VBG pH Sodium Potassium Chloride Carbon Dioxide BUN 35 H Creatinine Glucose 120 H POC Glucose 114 H Hemoglobin A1c Lactic Acid Calcium 7.3 L Phosphorus TIBC Transferrin Ferritin AST Total Creatine Kinase Troponin T NT-Pro-B Natriuret Pep Total Protein Albumin Triglycerides Cholesterol LDL Cholesterol Direct Urine Creatinine Urine Chloride Crossmatch See Detail 04/01/18 04/01/18 04/01/18 11:16 12:06 16:04 WBC RBC Hgb 7.3 L Hct 21.5 L MCV MCH MCHC RDW Plt Count Lymph % (Auto) [place] % (Auto) Lymph # [place] # Seg Neutrophils % Seg Neuts % (Manual) Lymphocytes % (Manual) Monocytes % (Manual) Seg Neutrophils # Lymphocytes # (Manual) Monocytes # (Manual) POC ABG pH POC ABG pCO2 POC ABG pO2 VBG pH Sodium Potassium Chloride Carbon Dioxide BUN Creatinine Glucose POC Glucose 223 H 225 H Hemoglobin A1c Lactic Acid Calcium Phosphorus TIBC Transferrin Ferritin AST Total Creatine Kinase Troponin T NT-Pro-B Natriuret Pep Total Protein Albumin Triglycerides Cholesterol LDL Cholesterol Direct Urine Creatinine Urine Chloride Crossmatch 04/01/18 04/01/18 04/01/18 16:46 19:47 21:15 WBC RBC Hgb 7.7 L Hct 23.5 L MCV MCH MCHC RDW Plt Count Lymph % (Auto) [place] % (Auto) Lymph # [place] # Seg Neutrophils % Seg Neuts % (Manual) Lymphocytes % (Manual) Monocytes % (Manual) Seg Neutrophils # Lymphocytes # (Manual) Monocytes # (Manual) POC ABG pH POC ABG pCO2 POC ABG pO2 VBG pH Sodium Potassium Chloride Carbon Dioxide BUN Creatinine Glucose POC Glucose 219 H 380 H Hemoglobin A1c Lactic Acid Calcium Phosphorus TIBC Transferrin Ferritin AST Total Creatine Kinase Troponin T NT-Pro-B Natriuret Pep Total Protein Albumin Triglycerides Cholesterol LDL Cholesterol Direct Urine Creatinine Urine Chloride Crossmatch 04/02/18 04/02/18 04/02/18 05:47 06:57 07:52 WBC RBC 2.80 L Hgb 7.7 L Hct 23.5 L MCV MCH MCHC RDW Plt Count Lymph % (Auto) [place] % (Auto) Lymph # [place] # Seg Neutrophils % Seg Neuts % (Manual) Lymphocytes % (Manual) Monocytes % (Manual) 25.0 H Seg Neutrophils # Lymphocytes # (Manual) 1.1 L Monocytes # (Manual) 1.3 H POC ABG pH POC ABG pCO2 POC ABG pO2 VBG pH Sodium Potassium Chloride Carbon Dioxide BUN Creatinine Glucose POC Glucose 49 L 111 H Hemoglobin A1c Lactic Acid Calcium Phosphorus TIBC Transferrin Ferritin AST Total Creatine Kinase Troponin T NT-Pro-B Natriuret Pep Total Protein Albumin Triglycerides Cholesterol LDL Cholesterol Direct Urine Creatinine Urine Chloride Crossmatch 04/02/18 04/02/18 04/02/18 07:52 12:36 16:36 WBC RBC Hgb Hct MCV MCH MCHC RDW Plt Count Lymph % (Auto) [place] % (Auto) Lymph # [place] # Seg Neutrophils % Seg Neuts % (Manual) Lymphocytes % (Manual) Monocytes % (Manual) Seg Neutrophils # Lymphocytes # (Manual) Monocytes # (Manual) POC ABG pH POC ABG pCO2 POC ABG pO2 VBG pH Sodium Potassium Chloride Carbon Dioxide BUN 28 H Creatinine Glucose 115 H POC Glucose 259 H 297 H Hemoglobin A1c Lactic Acid Calcium 7.3 L Phosphorus TIBC Transferrin Ferritin AST Total Creatine Kinase Troponin T NT-Pro-B Natriuret Pep Total Protein Albumin Triglycerides Cholesterol LDL Cholesterol Direct Urine Creatinine Urine Chloride Crossmatch 04/02/18 04/03/18 04/03/18 22:01 04:20 04:46 WBC RBC Hgb Hct MCV MCH MCHC RDW Plt Count Lymph % (Auto) [place] % (Auto) Lymph # [place] # Seg Neutrophils % Seg Neuts % (Manual) Lymphocytes % (Manual) Monocytes % (Manual) Seg Neutrophils # Lymphocytes # (Manual) Monocytes # (Manual) POC ABG pH POC ABG pCO2 POC ABG pO2 VBG pH Sodium Potassium Chloride Carbon Dioxide BUN Creatinine Glucose POC Glucose 206 H < 40 L 64 L Hemoglobin A1c Lactic Acid Calcium Phosphorus TIBC Transferrin Ferritin AST Total Creatine Kinase Troponin T NT-Pro-B Natriuret Pep Total Protein Albumin Triglycerides Cholesterol LDL Cholesterol Direct Urine Creatinine Urine Chloride Crossmatch 04/03/18 04/03/18 04/03/18 05:46 05:46 05:57 WBC RBC 2.72 L Hgb 7.6 L Hct 22.4 L MCV 83 L MCH MCHC RDW Plt Count Lymph % (Auto) [place] % (Auto) Lymph # [place] # Seg Neutrophils % Seg Neuts % (Manual) Lymphocytes % (Manual) 13.0 L Monocytes % (Manual) 19.0 H Seg Neutrophils # Lymphocytes # (Manual) 0.9 L Monocytes # (Manual) 1.3 H POC ABG pH POC ABG pCO2 POC ABG pO2 VBG pH Sodium Potassium Chloride 110.7 H Carbon Dioxide BUN 24 H Creatinine Glucose 45 L POC Glucose < 40 L Hemoglobin A1c Lactic Acid Calcium 7.3 L Phosphorus TIBC Transferrin Ferritin AST Total Creatine Kinase Troponin T NT-Pro-B Natriuret Pep Total Protein Albumin Triglycerides Cholesterol LDL Cholesterol Direct Urine Creatinine Urine Chloride Crossmatch 04/03/18 04/03/18 04/03/18 07:04 09:17 11:34 WBC RBC Hgb Hct MCV MCH MCHC RDW Plt Count Lymph % (Auto) [place] % (Auto) Lymph # [place] # Seg Neutrophils % Seg Neuts % (Manual) Lymphocytes % (Manual) Monocytes % (Manual) Seg Neutrophils # Lymphocytes # (Manual) Monocytes # (Manual) POC ABG pH POC ABG pCO2 POC ABG pO2 VBG pH Sodium Potassium Chloride Carbon Dioxide BUN Creatinine Glucose POC Glucose 44 L 107 H 196 H Hemoglobin A1c Lactic Acid Calcium Phosphorus TIBC Transferrin Ferritin AST Total Creatine Kinase Troponin T NT-Pro-B Natriuret Pep Total Protein Albumin Triglycerides Cholesterol LDL Cholesterol Direct Urine Creatinine Urine Chloride Crossmatch 04/03/18 04/03/18 04/04/18 16:48 20:25 06:05 WBC RBC 2.49 L Hgb 6.9 L Hct 20.8 L MCV 83 L MCH MCHC RDW Plt Count Lymph % (Auto) [place] % (Auto) Lymph # [place] # Seg Neutrophils % Seg Neuts % (Manual) Lymphocytes % (Manual) Monocytes % (Manual) 23.0 H Seg Neutrophils # Lymphocytes # (Manual) 0.7 L Monocytes # (Manual) 1.2 H POC ABG pH POC ABG pCO2 POC ABG pO2 VBG pH Sodium Potassium Chloride Carbon Dioxide BUN Creatinine Glucose POC Glucose 251 H 211 H Hemoglobin A1c Lactic Acid Calcium Phosphorus TIBC Transferrin Ferritin AST Total Creatine Kinase Troponin T NT-Pro-B Natriuret Pep Total Protein Albumin Triglycerides Cholesterol LDL Cholesterol Direct Urine Creatinine Urine Chloride Crossmatch 04/04/18 04/04/18 04/04/18 06:05 06:06 20:14 WBC RBC Hgb Hct MCV MCH MCHC RDW Plt Count Lymph % (Auto) [place] % (Auto) Lymph # [place] # Seg Neutrophils % Seg Neuts % (Manual) Lymphocytes % (Manual) Monocytes % (Manual) Seg Neutrophils # Lymphocytes # (Manual) Monocytes # (Manual) POC ABG pH POC ABG pCO2 POC ABG pO2 VBG pH Sodium Potassium Chloride 109.8 H Carbon Dioxide BUN 22 H Creatinine 1.7 H Glucose 260 H POC Glucose 312 H Hemoglobin A1c Lactic Acid Calcium 7.2 L Phosphorus TIBC Transferrin Ferritin AST Total Creatine Kinase Troponin T NT-Pro-B Natriuret Pep Total Protein Albumin Triglycerides Cholesterol LDL Cholesterol Direct Urine Creatinine Urine Chloride Crossmatch See Detail 04/04/18 04/05/18 04/05/18 22:23 06:10 06:10 WBC RBC 2.97 L Hgb 8.6 L Hct 25.0 L MCV MCH MCHC RDW Plt Count Lymph % (Auto) [place] % (Auto) 15.9 H Lymph # [place] # 1.2 H Seg Neutrophils % Seg Neuts % (Manual) Lymphocytes % (Manual) Monocytes % (Manual) Seg Neutrophils # Lymphocytes # (Manual) Monocytes # (Manual) POC ABG pH POC ABG pCO2 POC ABG pO2 VBG pH Sodium Potassium Chloride 108.4 H Carbon Dioxide 20 L BUN Creatinine 1.9 H Glucose 42 L POC Glucose 116 H Hemoglobin A1c Lactic Acid Calcium 7.3 L Phosphorus TIBC Transferrin Ferritin AST Total Creatine Kinase Troponin T NT-Pro-B Natriuret Pep Total Protein 5.7 L Albumin 2.3 L Triglycerides Cholesterol LDL Cholesterol Direct Urine Creatinine Urine Chloride Crossmatch 04/05/18 04/05/18 04/05/18 06:18 06:20 12:17 WBC RBC Hgb Hct MCV MCH MCHC RDW Plt Count Lymph % (Auto) [place] % (Auto) Lymph # [place] # Seg Neutrophils % Seg Neuts % (Manual) Lymphocytes % (Manual) Monocytes % (Manual) Seg Neutrophils # Lymphocytes # (Manual) Monocytes # (Manual) POC ABG pH POC ABG pCO2 POC ABG pO2 VBG pH Sodium Potassium Chloride Carbon Dioxide BUN Creatinine Glucose POC Glucose 44 L 123 H Hemoglobin A1c Lactic Acid Calcium Phosphorus TIBC Transferrin Ferritin AST Total Creatine Kinase Troponin T NT-Pro-B Natriuret Pep Total Protein Albumin Triglycerides Cholesterol LDL Cholesterol Direct Urine Creatinine 112.0 H Urine Chloride Crossmatch 04/05/18 04/05/18 04/06/18 16:33 21:29 07:06 WBC RBC Hgb Hct MCV MCH MCHC RDW Plt Count Lymph % (Auto) [place] % (Auto) Lymph # [place] # Seg Neutrophils % Seg Neuts % (Manual) Lymphocytes % (Manual) Monocytes % (Manual) Seg Neutrophils # Lymphocytes # (Manual) Monocytes # (Manual) POC ABG pH POC ABG pCO2 POC ABG pO2 VBG pH Sodium Potassium Chloride Carbon Dioxide BUN Creatinine Glucose POC Glucose 268 H 207 H 42 L Hemoglobin A1c Lactic Acid Calcium Phosphorus TIBC Transferrin Ferritin AST Total Creatine Kinase Troponin T NT-Pro-B Natriuret Pep Total Protein Albumin Triglycerides Cholesterol LDL Cholesterol Direct Urine Creatinine Urine Chloride Crossmatch 04/06/18 04/06/18 04/06/18 11:54 16:40 21:14 WBC RBC Hgb Hct MCV MCH MCHC RDW Plt Count Lymph % (Auto) [place] % (Auto) Lymph # [place] # Seg Neutrophils % Seg Neuts % (Manual) Lymphocytes % (Manual) Monocytes % (Manual) Seg Neutrophils # Lymphocytes # (Manual) Monocytes # (Manual) POC ABG pH POC ABG pCO2 POC ABG pO2 VBG pH Sodium Potassium Chloride Carbon Dioxide BUN Creatinine Glucose POC Glucose 177 H 188 H 336 H Hemoglobin A1c Lactic Acid Calcium Phosphorus TIBC Transferrin Ferritin AST Total Creatine Kinase Troponin T NT-Pro-B Natriuret Pep Total Protein Albumin Triglycerides Cholesterol LDL Cholesterol Direct Urine Creatinine Urine Chloride Crossmatch 04/07/18 04/07/18 04/07/18 05:46 05:46 05:46 WBC RBC 2.92 L Hgb 8.2 L Hct 25.0 L MCV MCH MCHC RDW Plt Count Lymph % (Auto) [place] % (Auto) 12.9 H Lymph # 1.1 L [place] # Seg Neutrophils % Seg Neuts % (Manual) Lymphocytes % (Manual) Monocytes % (Manual) Seg Neutrophils # Lymphocytes # (Manual) Monocytes # (Manual) POC ABG pH POC ABG pCO2 POC ABG pO2 VBG pH Sodium 131 L D Potassium Chloride 96.6 L Carbon Dioxide 19 L BUN 26 H Creatinine 2.7 H Glucose 247 H POC Glucose Hemoglobin A1c Lactic Acid Calcium 7.7 L Phosphorus TIBC Transferrin Ferritin AST Total Creatine Kinase Troponin T NT-Pro-B Natriuret Pep 1858 H Total Protein Albumin Triglycerides Cholesterol LDL Cholesterol Direct Urine Creatinine Urine Chloride Crossmatch 04/07/18 04/07/18 04/07/18 06:00 11:31 14:00 WBC RBC Hgb Hct MCV MCH MCHC RDW Plt Count Lymph % (Auto) [place] % (Auto) Lymph # [place] # Seg Neutrophils % Seg Neuts % (Manual) Lymphocytes % (Manual) Monocytes % (Manual) Seg Neutrophils # Lymphocytes # (Manual) Monocytes # (Manual) POC ABG pH POC ABG pCO2 POC ABG pO2 VBG pH Sodium Potassium Chloride Carbon Dioxide BUN Creatinine Glucose POC Glucose 288 H 373 H Hemoglobin A1c Lactic Acid Calcium Phosphorus TIBC Transferrin Ferritin AST Total Creatine Kinase Troponin T NT-Pro-B Natriuret Pep Total Protein Albumin Triglycerides Cholesterol LDL Cholesterol Direct Urine Creatinine 76.8 H Urine Chloride 91.4 L Crossmatch 04/07/18 04/07/18 16:12 18:32 WBC RBC Hgb Hct MCV MCH MCHC RDW Plt Count Lymph % (Auto) [place] % (Auto) Lymph # [place] # Seg Neutrophils % Seg Neuts % (Manual) Lymphocytes % (Manual) Monocytes % (Manual) Seg Neutrophils # Lymphocytes # (Manual) Monocytes # (Manual) POC ABG pH POC ABG pCO2 POC ABG pO2 VBG pH Sodium Potassium Chloride Carbon Dioxide BUN Creatinine Glucose POC Glucose 280 H 269 H Hemoglobin A1c Lactic Acid Calcium Phosphorus TIBC Transferrin Ferritin AST Total Creatine Kinase Troponin T NT-Pro-B Natriuret Pep Total Protein Albumin Triglycerides Cholesterol LDL Cholesterol Direct Urine Creatinine Urine Chloride Crossmatch Allied health notes reviewed: nursing
[2018-04-07] MEDS: LOVENOX SUB-Q SCH (21:00)
[2018-04-08] MEDS: HumuLIN R SUB-Q SCH ×5 (01:03→22:58)
[2018-04-08] MEDS: ZOSYN/NS 4.5GM/100ML 4.5 GM/100 ML VIAL IV SCH (05:07)
[2018-04-08] MEDS: APRESOLINE PO SCH ×2 (05:46→21:04)
[2018-04-08] MEDS ORDERED: VANCOMYCIN 1,250 MG in NACL 0.9% 250ML 250 ML IV ONE (06:00)
[2018-04-08 06:26] LABS: Basophils # (Auto) 0.1 K/mm3 (0.0-0.1); Eosinophils # (Auto) 0.2 K/mm3 (0.0-0.4); Hematocrit 23.7 % (35.5-45.6); Hemoglobin 7.8 gm/dl (11.8-15.2); Lymphocytes # (Auto) 1.2 K/mm3 (1.2-5.4); Lymphocytes % (Auto) 20.3 % (13.4-35.0); Mean Corpuscular HGB Conc 33 % (32-34); Mean Corpuscular Hemoglobin 28 pg (28-32); Mean Corpuscular Volume 86 fl (84-94); Monocytes # (Auto) 0.9 K/mm3 (0.0-0.8); Monocytes % (Auto) 14.7 % (0.0-7.3); Platelet Count 402 K/mm3 (140-440); Red Blood Count 2.76 M/mm3 (3.65-5.03); Red Cell Distribution Width 14.6 % (13.2-15.2)
[2018-04-08 06:52] LABS: Albumin 2.9 g/dL (3.9-5)
[2018-04-08] MEDS: COREG PO SCH ×3 (08:26→22:57)
[2018-04-08] MEDS ORDERED: ZOFRAN IV PRN (08:31)
[2018-04-08] MEDS: BABY ASPIRIN PO SCH (09:18)
[2018-04-08] MEDS: PEPCID PO SCH ×2 (09:18→21:05)
[2018-04-08] MEDS: PROzac PO SCH (09:18)
[2018-04-08] MEDS: MINIPRESS PO SCH ×2 (09:59→22:57)
[2018-04-08] MEDS: LASIX IV SCH (10:04)
[2018-04-08] MEDS ORDERED: NORMODYNE IV ONE (10:09)
[2018-04-08] MEDS ORDERED: NORMODYNE IV PRN (10:10)
--- NOTE | 2018-04-08 10:18 | Progress Note ---
Assessment and Plan Assessment and plan: --Malignant Hypertension;,moderate control Continue current antihypertensives, clonidine, hydralazine , Coreg , Lasix and when necessary medications --Type 2 diabetes mellitus ;Labile blood sugars; patient noncompliant with diet , hb A1c 8.9 Accu-Chek sliding scale coverage and ADA diet increase 7030 insulin to 20 units twice a day --DKA (diabetic ketoacidoses); resolved Uncontrolled blood sugars, non-complaint, Accu-Cheks, insulin, ADA diet --anemia; s/p 2 units of PRBC, HB 8.6-7.8 stool guaiac-negative, GI evaluated ,out patient workup, --Bilateral upper extremity superficial venous thrombosis/cellulitis Vascular evaluated, supportive care --cellulitis upper extremities and blisters, Elevate the limb, emperic antibiotics, cultures negative, wound care, significantly improved ,L E venous Doppler negative for DVT. --Acute respiratory failure; intubated ,s/p extubation 03/28/18 saturating well on nasal cannula oxygen, evaluation for home oxygen and discharge --BELKIS (acute kidney injury)secondary to severe dehydration Due to ATN, worsening of renal Function, neurology following --Severe hypoalbuminemia; severe malnutrition Nutrition consults, albumin infusions, supportive care --Depression; consult psych, patient denies suicidal thoughts or ideation --DVT prophylaxis ; Lovenox renal dose Plan of care reviewed with the patient and his nurse Closely monitor blood sugars Disposition; closely monitor blood sugars and blood pressures Monitor hemoglobin and hematocrit and renal function May DC in 1-2 days stable History Interval history: [age]-year-old -[place] male patient was admitted with DKA and acute respiratory failure requiring intubation, patient was stabilized in ICU extubated and later transferred to the telemetry floor, Patient also had acute kidney injury/bilateral upper extremity swelling and cellulitis and SVT, evaluation by vascular, on an IV antibiotics, also had significant drop in H&H, requiring blood transfusion, evaluation by GI , stool guaiac negative, advised outpatient follow-up, nephrology evaluation the patient worsening renal function , severe hypoproteinemia receiving albumin infusions, depression, Today he is comfortable, complains of generalized weakness Patient seen and examined today medical records reviewed No new events reported by the nursing Slightly better, Blood pressure is uncontrolled Alert awake oriented 3 Vital signs reviewed Hospitalist Physical - Constitutional Vitals: Temp Pulse Resp BP Pulse Ox 99.0 F 79 22 200/78 95 04/08/18 07:24 04/08/18 07:24 04/08/18 07:24 04/08/18 09:59 04/08/18 07:24 General appearance: Present: no acute distress, well-nourished, obese - EENT Eyes: Present: PERRL, EOM intact - Neck Neck: Present: supple, normal ROM - Respiratory Respiratory effort: normal Respiratory: bilateral: diminished, negative: rales, rhonchi, wheezing - Cardiovascular Rhythm: regular Heart Sounds: Present: S1 & S2 - Extremities Extremities: no ischemia, No edema, abnormal (swelling of bilateral elbows, significantly improved) - Abdominal General gastrointestinal: soft, non-tender, non-distended, normal bowel sounds - Integumentary Integumentary: Present: clear, warm - Psychiatric Psychiatric: appropriate mood/affect, cooperative - Neurologic Neurologic: CNII-XII intact, moves all extremities Results - Labs CBC & Chem 7: 04/08/18 05:38 04/08/18 05:38 Labs: Laboratory Last Values WBC 5.9 K/mm3 (4.5-11.0) 04/08/18 05:38 RBC 2.76 M/mm3 (3.65-5.03) L 04/08/18 05:38 Hgb 7.8 gm/dl (11.8-15.2) L 04/08/18 05:38 Hct 23.7 % (35.5-45.6) L 04/08/18 05:38 MCV 86 fl (84-94) 04/08/18 05:38 MCH 28 pg (28-32) 04/08/18 05:38 MCHC 33 % (32-34) 04/08/18 05:38 RDW 14.6 % (13.2-15.2) 04/08/18 05:38 Plt Count 402 K/mm3 (140-440) 04/08/18 05:38 Lymph % (Auto) 20.3 % (13.4-35.0) 04/08/18 05:38 [place] % (Auto) 14.7 % (0.0-7.3) H 04/08/18 05:38 Eos % (Auto) 3.0 % (0.0-4.3) 04/08/18 05:38 Baso % (Auto) 1.0 % (0.0-1.8) 04/08/18 05:38 Lymph # 1.2 K/mm3 (1.2-5.4) 04/08/18 05:38 [place] # 0.9 K/mm3 (0.0-0.8) H 04/08/18 05:38 Eos # 0.2 K/mm3 (0.0-0.4) 04/08/18 05:38 Baso # 0.1 K/mm3 (0.0-0.1) 04/08/18 05:38 Add Manual Diff Complete 04/04/18 06:05 Total Counted 100 04/04/18 06:05 Seg Neutrophils % 61.0 % (40.0-70.0) 04/08/18 05:38 Seg Neuts % (Manual) 55.0 % (40.0-70.0) 04/04/18 06:05 Band Neutrophils % 2.0 % 04/04/18 06:05 Lymphocytes % (Manual) 14.0 % (13.4-35.0) 04/04/18 06:05 Reactive Lymphs % (Man) 0 % 04/04/18 06:05 Monocytes % (Manual) 23.0 % (0.0-7.3) H 04/04/18 06:05 Eosinophils % (Manual) 4.0 % (0.0-4.3) 04/04/18 06:05 Basophils % (Manual) 0 % (0.0-1.8) 04/04/18 06:05 Metamyelocytes % 2.0 % 04/04/18 06:05 Myelocytes % 0 % 04/04/18 06:05 Promyelocytes % 0 % 04/04/18 06:05 Blast Cells % 0 % 04/04/18 06:05 Nucleated RBC % Not Reportable 04/04/18 06:05 Seg Neutrophils # 3.6 K/mm3 (1.8-7.7) 04/08/18 05:38 Seg Neutrophils # Man 2.9 K/mm3 (1.8-7.7) 04/04/18 06:05 Band Neutrophils # 0.1 K/mm3 04/04/18 06:05 Lymphocytes # (Manual) 0.7 K/mm3 (1.2-5.4) L 04/04/18 06:05 Abs React Lymphs (Man) 0.0 K/mm3 04/04/18 06:05 Monocytes # (Manual) 1.2 K/mm3 (0.0-0.8) H 04/04/18 06:05 Eosinophils # (Manual) 0.2 K/mm3 (0.0-0.4) 04/04/18 06:05 Basophils # (Manual) 0.0 K/mm3 (0.0-0.1) 04/04/18 06:05 Metamyelocytes # 0.1 K/mm3 04/04/18 06:05 Myelocytes # 0.0 K/mm3 04/04/18 06:05 Promyelocytes # 0.0 K/mm3 04/04/18 06:05 Blast Cells # 0.0 K/mm3 04/04/18 06:05 WBC Morphology Not Reportable 04/04/18 06:05 Hypersegmented Neuts Not Reportable 04/04/18 06:05 Hyposegmented Neuts Not Reportable 04/04/18 06:05 Hypogranular Neuts Not Reportable 04/04/18 06:05 Smudge Cells Not Reportable 04/04/18 06:05 Toxic Granulation Not Reportable 04/04/18 06:05 Toxic Vacuolation Not Reportable 04/04/18 06:05 Dohle Bodies Not Reportable 04/04/18 06:05 Pelger-Huet Anomaly Not Reportable 04/04/18 06:05 Loi Rods Not Reportable 04/04/18 06:05 Platelet Estimate Appears normal 04/04/18 06:05 Clumped Platelets Not Reportable 04/04/18 06:05 Plt Clumps, EDTA Not Reportable 04/04/18 06:05 Large Platelets Not Reportable 04/04/18 06:05 Giant Platelets Not Reportable 04/04/18 06:05 Platelet Satelliting Not Reportable 04/04/18 06:05 Plt Morphology Comment Not Reportable 04/04/18 06:05 RBC Morphology Not Reportable 04/04/18 06:05 Dimorphic RBCs Not Reportable 04/04/18 06:05 Polychromasia Not Reportable 04/04/18 06:05 Hypochromasia Few 04/04/18 06:05 Poikilocytosis Not Reportable 04/04/18 06:05 Anisocytosis 1+ 04/04/18 06:05 Microcytosis Not Reportable 04/04/18 06:05 Macrocytosis Not Reportable 04/04/18 06:05 Spherocytes Not Reportable 04/04/18 06:05 Pappenheimer Bodies Not Reportable 04/04/18 06:05 Sickle Cells Not Reportable 04/04/18 06:05 Target Cells Not Reportable 04/04/18 06:05 Tear Drop Cells Not Reportable 04/04/18 06:05 Ovalocytes Not Reportable 04/04/18 06:05 Helmet Cells Not Reportable 04/04/18 06:05 [place] Bodies Not Reportable 04/04/18 06:05 [place] Rings Not Reportable 04/04/18 06:05 [place] Cells Not Reportable 04/04/18 06:05 Bite Cells Not Reportable 04/04/18 06:05 Crenated Cell Not Reportable 04/04/18 06:05 Elliptocytes Not Reportable 04/04/18 06:05 Acanthocytes (Spur) Not Reportable 04/04/18 06:05 Rouleaux Not Reportable 04/04/18 06:05 Hemoglobin C Crystals Not Reportable 04/04/18 06:05 Schistocytes Not Reportable 04/04/18 06:05 Malaria parasites Not Reportable 04/04/18 06:05 Lev Bodies Not Reportable 04/04/18 06:05 Hem Pathologist Commnt No 04/04/18 06:05 POC ABG pH 7.405 (7.35-7.45) 03/28/18 03:49 POC ABG pCO2 38.6 (35-45) 03/28/18 03:49 POC ABG pO2 102 (80-105) 03/28/18 03:49 POC ABG HCO3 24.2 03/28/18 03:49 POC ABG Total CO2 25 03/28/18 03:49 POC ABG O2 Sat 98 03/28/18 03:49 POC ABG Base Excess 0 03/28/18 03:49 VBG pH 7.000 (7.320-7.420) L* 03/25/18 14:41 FiO2 25 % 03/28/18 03:49 Sodium 146 mmol/L (137-145) H D 04/08/18 05:38 Potassium 4.0 mmol/L (3.6-5.0) 04/08/18 05:38 Chloride 113.3 mmol/L (98-107) H 04/08/18 05:38 Carbon Dioxide 21 mmol/L (22-30) L 04/08/18 05:38 Anion Gap 16 mmol/L 04/08/18 05:38 BUN 28 mg/dL (9-20) H 04/08/18 05:38 Creatinine 3.2 mg/dL (0.8-1.5) H 04/08/18 05:38 Estimated GFR 25 ml/min 04/08/18 05:38 BUN/Creatinine Ratio 9 % 04/08/18 05:38 Glucose 113 mg/dL (75-100) H 04/08/18 05:38 POC Glucose 119 (70-105) H 04/08/18 06:08 Hemoglobin A1c 8.9 % (4-6) H 03/25/18 18:55 Lactic Acid 1.80 mmol/L (0.7-2.0) 03/26/18 04:25 Calcium 8.0 mg/dL (8.4-10.2) L 04/08/18 05:38 Phosphorus 3.70 mg/dL (2.5-4.5) 04/03/18 05:46 Magnesium 2.00 mg/dL (1.7-2.3) 04/08/18 05:38 Iron 54 ug/dL (49-181) 03/28/18 04:35 TIBC 115 mcg/dL (250-450) L 03/28/18 04:35 Transferrin 94 mg/dl (180-329) L 03/28/18 04:35 Ferritin 412.1 ng/mL (13.0-400.0) H 03/28/18 04:35 Total Bilirubin 0.40 mg/dL (0.1-1.2) 04/08/18 05:38 Direct Bilirubin < 0.2 mg/dL (0-0.2) 03/25/18 14:08 Indirect Bilirubin 0.1 mg/dL 03/25/18 14:08 AST 20 units/L (5-40) 04/08/18 05:38 ALT 17 units/L (7-56) 04/08/18 05:38 Alkaline Phosphatase 75 units/L (35-129) 04/08/18 05:38 Total Creatine Kinase 226 units/L (55-170) H 03/25/18 18:09 CK-MB (CK-2) 3.7 ng/mL (0.0-4.0) 03/25/18 18:09 CK-MB (CK-2) Rel Index 1.6 (0-4) 03/25/18 18:09 Troponin T 0.033 ng/mL (0.00-0.029) H 03/25/18 18:09 NT-Pro-B Natriuret Pep 1858 pg/mL (0-900) H 04/07/18 05:46 Total Protein 6.0 g/dL (6.3-8.2) L 04/08/18 05:38 Albumin 2.9 g/dL (3.9-5) L 04/08/18 05:38 Albumin/Globulin Ratio 0.9 % 04/08/18 05:38 Triglycerides 185 mg/dL (2-149) H 03/25/18 18:09 Cholesterol 215 mg/dL (50-199) H 03/25/18 18:09 LDL Cholesterol Direct 144 mg/dL (50-130) H 03/25/18 18:09 HDL Cholesterol 48 mg/dL (40-59) 03/25/18 18:09 Cholesterol/HDL Ratio 4.47 % 03/25/18 18:09 Urine Color Yellow (Yellow) 04/05/18 06:18 Urine Turbidity Clear (Clear) 04/05/18 06:18 Urine pH 5.0 (5.0-7.0) 04/05/18 06:18 Ur Specific [place] 1.013 (1.003-1.030) 04/05/18 06:18 Urine Protein >500 mg/dL (Negative) 04/05/18 06:18 Urine Glucose (UA) Neg mg/dL (Negative) 04/05/18 06:18 Urine Ketones Neg mg/dL (Negative) 04/05/18 06:18 Urine Blood Sm (Negative) 04/05/18 06:18 Urine Nitrite Neg (Negative) 04/05/18 06:18 Urine Bilirubin Neg (Negative) 04/05/18 06:18 Urine Urobilinogen < 2.0 mg/dL (<2.0) 04/05/18 06:18 Ur Leukocyte Esterase Neg (Negative) 04/05/18 06:18 Urine WBC (Auto) 3.0 /HPF (0.0-6.0) 04/05/18 06:18 Urine RBC (Auto) 2.0 /HPF (0.0-6.0) 04/05/18 06:18 Urine Bacteria (Auto) 1+ /HPF (Negative) 03/25/18 14:00 Uric Acid Crystals 2+ 04/05/18 06:18 Urine Mucus Few /HPF 04/05/18 06:18 Urine Yeast (Bud[place]) 1+ /HPF 04/05/18 06:18 Urine Eosinophils None seen (None Seen) 04/07/18 14:00 Urine Creatinine 76.8 mg/dL (0.1-20.0) H 04/07/18 14:00 Urine Sodium 94 mmol/L 04/07/18 14:00 Urine Chloride 91.4 mmolL (110-250) L 04/07/18 14:00 Urine Urea Nitrogen 215 04/07/18 14:00 Random Vancomycin 14.6 ug/mL (0-40.0) 04/07/18 05:46 Urine Opiates Screen Presumptive negative 03/25/18 14:19 Urine Methadone Screen Presumptive negative 03/25/18 14:19 Ur Barbiturates Screen Presumptive negative 03/25/18 14:19 Ur Phencyclidine Scrn Presumptive negative 03/25/18 14:19 Ur Amphetamines Screen Presumptive negative 03/25/18 14:19 U Benzodiazepines Scrn Presumptive negative 03/25/18 14:19 Urine Cocaine Screen Presumptive negative 03/25/18 14:19 U Marijuana (THC) Screen Presumptive negative 03/25/18 14:19 Drugs of Abuse Note Disclamer 03/25/18 14:19 Blood Type O POSITIVE 04/04/18 20:14 Antibody Screen Negative 04/04/18 20:14 Crossmatch See Detail 04/04/18 20:14
[2018-04-08] MEDS: SODIUM CHLORIDE FLUSH SYRINGE 10 ML IV SCH ×2 (10:28→21:12)
--- NOTE | 2018-04-08 11:22 | Consultation ---
History of Present Illness - Reason for Consult Consult date: 04/08/18 Reason for consult: Mental Health Evaluation Requesting physician: JING ROA - Chief Complaint Chief complaint: "I felt bad prior to my admission" - History of Present Psychiatric Illness 52-year-old insulin-dependent diabetic who was found essentially obtunded in his residence. Psychiatry was consulted to see patient for depression. Today the patient is calm and cooperative during the assessment. He stated "My diabetes have been out of control lately." He stated feeling better since his admission to the hospital. He stated having a hx of depression. He stated that he felt sad, hopeless, and mentally tired when he was dx with depression. He stated that his ongoing medical issue brought on his depression. He denies SI/HI 's, AVH's, and previous suicide attempts. He denies any manic episodes and a poor appetite. He stated that his barrel cutter manage his depression with Prozac. He stated that he would like a referral to see a psychiatrist. He denies recreational drug use and alcohol consumption (etoh). Medications and Allergies Allergies Allergy/AdvReac Type Severity Reaction Status Date / Time No Known Allergies Allergy Unverified 01/12/18 10:02 Home Medications Medication Instructions Recorded Confirmed Last Taken Type Aspirin 81 mg PO DAILY 01/13/18 03/26/18 Unknown History AtorvaSTATin [Lipitor] 40 mg PO QHS 01/13/18 03/26/18 Unknown History Carvedilol [Coreg] 6.25 mg PO BID 01/13/18 03/27/18 Unknown History FLUoxetine [PROzac] 10 mg PO QDAY 01/13/18 03/27/18 Unknown History Fluconazole [Diflucan] 200 mg PO 1XW 01/13/18 03/27/18 03/25/18 10:00 History 5mg Lisinopril/Hydrochlorothiazide 1 tab PO QDAY 01/13/18 03/26/18 03/25/18 10:00 History [Zestoretic 20-12.5 mg] 5mg Terazosin [Hytrin] 5 mg PO QHS 01/13/18 03/26/18 Unknown History Active Meds: Active Medications Lipase/Protease/Amylase (Holli Metz 10,500 Unit) 1 each FEEDTUBE PRN PRN PRN Reason: For Clogged Feeding Tube Aspirin (Baby Aspirin) 81 mg PO DAILY [facility] Last Admin: 04/08/18 09:18 Dose: 81 mg Atorvastatin Calcium (Lipitor) 40 mg PO QHS [facility] Last Admin: 04/07/18 21:01 Dose: 40 mg Carvedilol (Coreg) 25 mg PO BID [facility] Last Admin: 04/08/18 08:26 Dose: 25 mg Clonidine HCl (Catapres) 0.2 mg PO TID [facility] Dextrose (D50w (25gm) Syringe) 0 ml IV ONCE PRN PRN Reason: Hypoglycemia Last Admin: 04/06/18 07:08 Dose: 25 ml Enoxaparin Sodium (Lovenox) 40 mg SUB-Q QDAY@2200 [facility] Last Admin: 04/07/18 21:00 Dose: 40 mg Famotidine (Pepcid) 10 mg PO BID [facility] Fluoxetine HCl (Prozac) 10 mg PO QDAY [facility] Last Admin: 04/08/18 09:18 Dose: 10 mg Furosemide (Lasix) 40 mg IV QDAY [facility] Last Admin: 04/08/18 10:04 Dose: 40 mg Hydralazine HCl (Apresoline) 10 mg IV Q4H PRN PRN Reason: SBP > 160 Last Admin: 04/07/18 06:18 Dose: 10 mg Hydralazine HCl (Apresoline) 100 mg PO Q8HR [facility] Last Admin: 04/08/18 05:46 Dose: 100 mg Hydrophilic Ointment (Vaseline Lip Therapy) 1 applic TP Q2HR PRN PRN Reason: Dry Lips Piperacillin Sod/Tazobactam Sod (Zosyn/Ns 2.25 Gm/50ml) 2.25 gm in 50 mls @ 100 mls/hr IV Q6HR [facility] Insulin Human Isoph/Insulin Regular (Humulin 70/30) 16 unit SUB-Q BIDDIAB [facility] Last Admin: 04/08/18 08:25 Dose: 16 unit Insulin Human Regular (Humulin R) 0 units SUB-Q ACHS [facility]; Protocol Last Admin: 04/08/18 07:27 Dose: Not Given Labetalol HCl (Normodyne) 10 mg IV Q4H PRN PRN Reason: Blood Pressure Magnesium Hydroxide (Milk Of Magnesia) 30 ml PO QDAY PRN PRN Reason: Constipation Multi-Ingred Cream/Lotion/Oil/Oint (Artificial Tears Ophth Oint) 1 applic OU Q4HR PRN PRN Reason: Dry Eye(s) Ondansetron HCl (Zofran) 4 mg IV Q4H PRN PRN Reason: Nausea And Vomiting Last Admin: 04/08/18 08:40 Dose: 4 mg Oxycodone/Acetaminophen (Percocet 5/325) 1 tab PO Q6H PRN PRN Reason: Pain, Moderate (4-6) Last Admin: 03/30/18 18:15 Dose: 1 tab Prazosin HCl (Minipress) 1 mg PO Q12HR [facility] Last Admin: 04/08/18 09:59 Dose: 1 mg Simple Syrup (Simple Syrup) 15 ml FEEDTUBE PRN PRN PRN Reason: Hypoglycemia Simple Syrup (Simple Syrup) 30 ml FEEDTUBE PRN PRN PRN Reason: Hypoglycemia Sodium Bicarbonate (Sodium Bicarbonate) 325 mg FEEDTUBE PRN PRN PRN Reason: For Clogged Feeding Tube Sodium Chloride (Nacl 0.9% 500 Ml) 1 ml IV DIRECT [facility] Sodium Chloride (Sodium Chloride Flush Syringe 10 Ml) 10 ml IV BID [facility] Last Admin: 04/08/18 10:28 Dose: 10 ml Sodium Chloride (Sodium Chloride Flush Syringe 10 Ml) 10 ml IV PRN PRN PRN Reason: LINE FLUSH Last Admin: 04/07/18 06:19 Dose: 10 ml Vancomycin HCl (Vancomycin Pharmacy To Dose) 1 each IV PKCONSULT [facility] Past psychiatric history - Past Medical History Past Medical History: diabetes Past Surgical History: No surgical history - past Psychiatric treatment and history Psych: Depression psychiatric treatment history: Hx of Depression for 5 yrs. A fam psy hx of mood do's. - Social History Social history: lives with family Mental Status Exam - Vital signs Last Vital Signs Temp 99.0 F 04/08/18 07:24 Pulse 80 04/08/18 10:22 Resp 22 04/08/18 07:24 BP 200/97 04/08/18 10:22 Pulse Ox 95 04/08/18 07:24 - Exam Narrative exam: MSE: Appearance: calm, cooperative Behavior: regular eye contact Speech: regular rate and tone Mood: "okay" Affect: congruent to mood Thought Process: linear Thought Content: denies SI/HI's and AVH's Motor Activity: lying in bed Cognition: A/O x 3 Insight: appropriate Judgment: appropriate Results Result Diagrams: 04/08/18 05:38 04/08/18 05:38 Abnormal lab results 04/07/18 04/07/18 04/07/18 Range/Units 05:46 11:31 14:00 RBC (3.65-5.03) M/mm3 Hgb (11.8-15.2) gm/dl Hct (35.5-45.6) % [place] % (Auto) (0.0-7.3) % [place] # (0.0-0.8) K/mm3 Sodium (137-145) mmol/L Chloride (98-107) mmol/L Carbon Dioxide (22-30) mmol/L BUN (9-20) mg/dL Creatinine (0.8-1.5) mg/dL Glucose (75-100) mg/dL POC Glucose 373 H (70-105) Calcium (8.4-10.2) mg/dL NT-Pro-B Natriuret Pep 1858 H (0-900) pg/mL Total Protein (6.3-8.2) g/dL Albumin (3.9-5) g/dL Urine Creatinine 76.8 H (0.1-20.0) mg/dL Urine Chloride 91.4 L (110-250) mmolL 04/07/18 04/07/18 04/07/18 Range/Units 16:12 18:32 22:00 RBC (3.65-5.03) M/mm3 Hgb (11.8-15.2) gm/dl Hct (35.5-45.6) % [place] % (Auto) (0.0-7.3) % [place] # (0.0-0.8) K/mm3 Sodium (137-145) mmol/L Chloride (98-107) mmol/L Carbon Dioxide (22-30) mmol/L BUN (9-20) mg/dL Creatinine (0.8-1.5) mg/dL Glucose (75-100) mg/dL POC Glucose 280 H 269 H 145 H (70-105) Calcium (8.4-10.2) mg/dL NT-Pro-B Natriuret Pep (0-900) pg/mL Total Protein (6.3-8.2) g/dL Albumin (3.9-5) g/dL Urine Creatinine (0.1-20.0) mg/dL Urine Chloride (110-250) mmolL 04/08/18 04/08/18 04/08/18 Range/Units 05:38 05:38 06:08 RBC 2.76 L (3.65-5.03) M/mm3 Hgb 7.8 L (11.8-15.2) gm/dl Hct 23.7 L (35.5-45.6) % [place] % (Auto) 14.7 H (0.0-7.3) % [place] # 0.9 H (0.0-0.8) K/mm3 Sodium 146 H D (137-145) mmol/L Chloride 113.3 H (98-107) mmol/L Carbon Dioxide 21 L (22-30) mmol/L BUN 28 H (9-20) mg/dL Creatinine 3.2 H (0.8-1.5) mg/dL Glucose 113 H (75-100) mg/dL POC Glucose 119 H (70-105) Calcium 8.0 L (8.4-10.2) mg/dL NT-Pro-B Natriuret Pep (0-900) pg/mL Total Protein 6.0 L (6.3-8.2) g/dL Albumin 2.9 L (3.9-5) g/dL Urine Creatinine (0.1-20.0) mg/dL Urine Chloride (110-250) mmolL All other labs normal. Assessment and Plan Assessment and plan: Impression: Hx of Depression. Today the patient is calm and cooperative during the assessment. Recommendation/Plan: Continue home medication Prozac 10 mg PO daily for depression. Discussed possible suicidality/medication induced [place] with patient reference Prozac. The patient was given outpatient psy services for [facility]. Psychiatry sign off.
[2018-04-08] MEDS: CATAPRES PO SCH ×2 (12:03→20:59)
[2018-04-08] MEDS: ZOSYN/NS 2.25 GM/50ML 2.25 GM/50 ML BAG IV SCH ×2 (12:04→17:45)
--- NOTE | 2018-04-08 12:09 | Ultrasound Report ---
ULTRASOUND RENAL BILATERAL ULTRASOUND BLADDER RESIDUAL HISTORY: Acute renal insufficiency. TECHNIQUE: transabdominal ultrasound with color Doppler interrogation. COMPARISON: none. FINDINGS: The right kidney measures 12.8 x 4.3 x 5.4cm. Right renal cortex: 1.5cm. The left kidney measures 12.8 x 5.6 x 6.0cm. Left renal cortex: 2.5cm. The kidneys are normal size, contour and position. There is increased renal parenchymal echotexture bilaterally. Corticomedullary differentiation is preserved. No evidence for cystic disease, mass, nephrolithiasis, hydronephrosis or perinephric fluid. Prevoid bladder volume measures 93 cc. A large postvoid residual measuring 113 cc is also identified. 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 Large postvoid residual measuring 113 cc.
--- NOTE | 2018-04-08 14:33 | Progress Note ---
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: Volume Overload: Hypoalbuminemia: -Renal function reviewed, SCr level increased to 3.2 today, yesterday's SCr level was 2.7 -Worsening renal function possibly due to overdiuresis, AIN from antibiotics/ vancomycin, check protein/cr ratio, may require secondary GN/vasculitis work up , urine analysis on 04/05/18 showed small amount of blood, >500 mg/dl protein. Random vancomycin was only 14.6 on 04/07/18 and 21 on 04/06/18, pharmacy on board for vancomycin, will f/u vancomycin trough levels. -Repeat urine analysis -Check protein/cr ratio, microalbumin/cr ratio, f/u results, consider GN work up -Pro-BNP was 1858 on 04/07/18 -S/p Renal US on 04/07/18 showed large postvoid residual of 113 ml, echogenic kidneys consistent with nonspecific renal parenchymal disease -Place valentino catheter -Hold lasix given worsening BELKIS -Urine eosinophils absent, although doesn't r/o AIN -Repeat BMP at 1800 -Serum sodium level was 146 today, yesterday's serum sodium level 131 (but unclear of accuracy), reviewing prior 4 days, serum sodium level was around 139- 144, today's serum sodium level of 146 may be more accurate when looking at the last 5 days, and yesterday's serum sodium level of 131 (with sodium change of 15 ) might not have been an accurate reading. -S/p CXR on 04/06/18 showed increased bilateral reticular interstitial opacities. No consolidating pneumonia, suspect small pleural effusion or pleural effusions -Renally dose meds -Strict intake and output -S/p Albumin 25 g IVPB every 8 hours x 6 doses -Obtain daily weight -Intake= 3100 ml Output= 1650 ml ( Net= 1450 ml) -Renal plan d/w Dr Adrian -Continue supportive therapy Acute Respiratory Failure: -Extubated -Pulmonology on board Essential Hypertension: -On clonidine, coreg, hydralazine, and minipress -Started on Minipress -Adjust medications as needed DKA: -Resolved Subjective Date of service: 04/08/18 Principal diagnosis: Acute hypoxic respiratory failure, DKA, BELKIS, Acute encephalopathy Interval history: Pt reports feeling fatigued, denies shortness of breath at rest, occasional dyspnea on exertion, no acute distress, no family at bedside Objective - Vital Signs Vital signs: Vital Signs - 12hr 04/08/18 04/08/18 04/08/18 03:59 04:10 04:20 Temperature 98.8 F Pulse Rate 70 74 Respiratory 18 20 Rate Blood Pressure 194/82 O2 Sat by Pulse 93 Oximetry 04/08/18 04/08/18 04/08/18 05:46 07:24 09:59 Temperature 99.0 F Pulse Rate 70 79 Respiratory 22 Rate Blood Pressure 194/82 226/82 200/78 O2 Sat by Pulse 95 Oximetry 04/08/18 04/08/18 04/08/18 10:00 10:22 12:03 Temperature Pulse Rate 80 Respiratory Rate Blood Pressure 200/97 167/85 O2 Sat by Pulse 96 Oximetry - General Appearance General appearance: well-developed (no acute distress) EENT: ATNC Neck: no JVD Respiratory: Present: Other (Lung sounds decreased bilaterally, unlabored) Cardiology: regular, S1S2 Gastrointestinal: normoactive bowel sounds, no tenderness Integumentary: warm and dry Neurologic: alert and oriented x3 (follows simple commands) Musculoskeletal: other (2+ edema to both lower extremities) Psychiatric: other (flat effect) - Lab 04/08/18 05:38 04/08/18 05:38 Most recent lab results Calcium 8.0 mg/dL (8.4-10.2) L 04/08/18 05:38 Phosphorus 3.70 mg/dL (2.5-4.5) 04/03/18 05:46 Magnesium 2.00 mg/dL (1.7-2.3) 04/08/18 05:38 Urine Creatinine 76.8 mg/dL (0.1-20.0) H 04/07/18 14:00 Urine Sodium 94 mmol/L 04/07/18 14:00
[2018-04-08 18:24] LABS: Bacteria,Urine 1+ /HPF (Negative); Bilirubin,Urine NEG (Negative); Blood,Urine SM (Negative); Color,Urine Yellow (Yellow); Hyaline Casts,Urine 1 /LPF; Mucus,Urine FEW /HPF; Urobilinogen,Urine < 2.0 mg/dL (<2.0); WBC,Urine < 1.0 /HPF (0.0-6.0)
[2018-04-08 18:50] LABS: Microalbumin/Creatinine Ratio 3284.1 ug/mg
[2018-04-08] MEDS: LOVENOX SUB-Q SCH (21:05)
[2018-04-08] MEDS ORDERED: NORMODYNE PO SCH (22:00)
[2018-04-09] MEDS: ZOSYN/NS 2.25 GM/50ML 2.25 GM/50 ML BAG IV SCH ×4 (02:22→17:30)
[2018-04-09] MEDS: SODIUM CHLORIDE FLUSH SYRINGE 10 ML IV PRN (06:09)
[2018-04-09] MEDS: APRESOLINE PO SCH ×4 (06:09→21:45)
[2018-04-09] MEDS: D50W (25GM) Syringe IV PRN (06:56)
--- NOTE | 2018-04-09 09:12 | Progress Note ---
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: Volume Overload: Hypoalbuminemia: -labs are pending this AM -cont to hold lasix for now -Renally dose meds -Strict intake and output -Obtain daily weight Acute Respiratory Failure: -Extubated -Pulmonology on board Essential Hypertension: -On clonidine, coreg, hydralazine, and minipress -Started on Minipress -Adjust medications as needed Subjective Date of service: 04/09/18 Principal diagnosis: Acute hypoxic respiratory failure, DKA, BELKIS, Acute encephalopathy Interval history: feels tired Objective - Vital Signs Vital signs: Vital Signs - 12hr 04/08/18 04/09/18 04/09/18 22:57 06:09 07:21 Temperature 98.3 F Pulse Rate 92 H 58 L 64 Respiratory 24 Rate Blood Pressure 160/86 168/88 167/86 O2 Sat by Pulse 99 Oximetry - General Appearance General appearance: well-developed, well-nourished EENT: ATNC, PERRL, mucous membranes moist Neck: no JVD, no carotid bruit Respiratory: Present: Clear to Ascultation. Absent: Rales, Ronchi Cardiology: regular, S1S2 Gastrointestinal: normoactive bowel sounds, no tenderness, no distended Integumentary: no rash, warm and dry Neurologic: no focal deficit, no asterixis Musculoskeletal: other (1-2+ pitting edema in BLE) Psychiatric: cooperative - Lab 04/08/18 05:38 04/08/18 05:38 Most recent lab results Calcium 8.0 mg/dL (8.4-10.2) L 04/08/18 05:38 Phosphorus 3.70 mg/dL (2.5-4.5) 04/03/18 05:46 Magnesium 2.00 mg/dL (1.7-2.3) 04/08/18 05:38 Urine Creatinine 63.0 mg/dL (0.1-20.0) H 04/08/18 17:30 Urine Sodium 94 mmol/L 04/07/18 14:00
[2018-04-09] MEDS: SODIUM CHLORIDE FLUSH SYRINGE 10 ML IV SCH ×2 (09:26→23:32)
[2018-04-09] MEDS: COREG PO SCH ×2 (09:29→21:45)
[2018-04-09] MEDS: LOVENOX SUB-Q SCH (09:29)
[2018-04-09] MEDS: PROzac PO SCH (09:30)
[2018-04-09] MEDS: BABY ASPIRIN PO SCH (09:30)
[2018-04-09] MEDS: CATAPRES PO SCH ×3 (09:30→21:44)
[2018-04-09] MEDS: PEPCID PO SCH ×2 (09:30→21:45)
[2018-04-09] MEDS: HumuLIN R SUB-Q SCH ×4 (09:31→23:31)
[2018-04-09] MEDS: MINIPRESS PO SCH ×2 (09:33→21:43)
--- NOTE | 2018-04-09 10:55 | Progress Note ---
Assessment and Plan Assessment and plan: --Malignant Hypertension;,moderate control Continue current antihypertensives, clonidine, hydralazine , Coreg , Lasix and when necessary medications --Type 2 diabetes mellitus ;Labile blood sugars; patient noncompliant with diet , hb A1c 8.9 Accu-Chek sliding scale coverage and ADA diet increase 7030 insulin to 20 units twice a day --DKA (diabetic ketoacidoses); resolved Uncontrolled blood sugars, non-complaint, Accu-Cheks, insulin, ADA diet --anemia; s/p 2 units of PRBC, HB 8.6-7.8 stool guaiac-negative, GI evaluated ,out patient workup, --Bilateral upper extremity superficial venous thrombosis/cellulitis Vascular evaluated, supportive care --cellulitis upper extremities and blisters, Elevate the limb, emperic antibiotics, cultures negative, wound care, significantly improved ,L E venous Doppler negative for DVT. --Acute respiratory failure; intubated ,s/p extubation 03/28/18 saturating well on nasal cannula oxygen, evaluation for home oxygen and discharge --BELKIS (acute kidney injury)secondary to severe dehydration Due to ATN, worsening of renal Function, nephrology following. Worsening renal function possibly due to overdiuresis, AIN from antibiotics/vancomycin, check protein/cr ratio, may require secondary GN/vasculitis work up, urine analysis on 04/05/18 showed small amount of blood, >500 mg/dl protein. --Severe hypoalbuminemia; severe malnutrition Nutrition consults, albumin infusions, supportive care --Depression; consult psych, patient denies suicidal thoughts or ideation --DVT prophylaxis ; Lovenox renal dose Plan of care reviewed with the patient and his nurse Closely monitor blood sugars Disposition; closely monitor blood sugars and blood pressures Monitor hemoglobin and hematocrit and renal function May DC in 1-2 days stable History Interval history: No new issues overnight Hospitalist Physical - Constitutional Vitals: Temp Pulse Resp BP Pulse Ox 98.3 F 64 24 167/86 99 04/09/18 07:21 04/09/18 09:29 04/09/18 07:21 04/09/18 09:29 04/09/18 07:21 General appearance: Present: no acute distress, well-nourished, obese - EENT Eyes: Present: PERRL, EOM intact ENT: hearing intact, clear oral mucosa, dentition normal - Neck Neck: Present: supple, normal ROM - Respiratory Respiratory effort: normal Respiratory: bilateral: CTA - Cardiovascular Rhythm: regular Heart Sounds: Present: S1 & S2. Absent: gallop, rub - Extremities Extremities: no ischemia, No edema, Full ROM - Abdominal General gastrointestinal: soft, non-tender, non-distended, normal bowel sounds - Integumentary Integumentary: Present: clear, warm, dry - Neurologic Neurologic: CNII-XII intact, moves all extremities Results - Labs CBC & Chem 7: 04/08/18 05:38 04/08/18 05:38 Labs: Laboratory Last Values WBC 5.9 K/mm3 (4.5-11.0) 04/08/18 05:38 RBC 2.76 M/mm3 (3.65-5.03) L 04/08/18 05:38 Hgb 7.8 gm/dl (11.8-15.2) L 04/08/18 05:38 Hct 23.7 % (35.5-45.6) L 04/08/18 05:38 MCV 86 fl (84-94) 04/08/18 05:38 MCH 28 pg (28-32) 04/08/18 05:38 MCHC 33 % (32-34) 04/08/18 05:38 RDW 14.6 % (13.2-15.2) 04/08/18 05:38 Plt Count 402 K/mm3 (140-440) 04/08/18 05:38 Lymph % (Auto) 20.3 % (13.4-35.0) 04/08/18 05:38 [place] % (Auto) 14.7 % (0.0-7.3) H 04/08/18 05:38 Eos % (Auto) 3.0 % (0.0-4.3) 04/08/18 05:38 Baso % (Auto) 1.0 % (0.0-1.8) 04/08/18 05:38 Lymph # 1.2 K/mm3 (1.2-5.4) 04/08/18 05:38 [place] # 0.9 K/mm3 (0.0-0.8) H 04/08/18 05:38 Eos # 0.2 K/mm3 (0.0-0.4) 04/08/18 05:38 Baso # 0.1 K/mm3 (0.0-0.1) 04/08/18 05:38 Add Manual Diff Complete 04/04/18 06:05 Total Counted 100 04/04/18 06:05 Seg Neutrophils % 61.0 % (40.0-70.0) 04/08/18 05:38 Seg Neuts % (Manual) 55.0 % (40.0-70.0) 04/04/18 06:05 Band Neutrophils % 2.0 % 04/04/18 06:05 Lymphocytes % (Manual) 14.0 % (13.4-35.0) 04/04/18 06:05 Reactive Lymphs % (Man) 0 % 04/04/18 06:05 Monocytes % (Manual) 23.0 % (0.0-7.3) H 04/04/18 06:05 Eosinophils % (Manual) 4.0 % (0.0-4.3) 04/04/18 06:05 Basophils % (Manual) 0 % (0.0-1.8) 04/04/18 06:05 Metamyelocytes % 2.0 % 04/04/18 06:05 Myelocytes % 0 % 04/04/18 06:05 Promyelocytes % 0 % 04/04/18 06:05 Blast Cells % 0 % 04/04/18 06:05 Nucleated RBC % Not Reportable 04/04/18 06:05 Seg Neutrophils # 3.6 K/mm3 (1.8-7.7) 04/08/18 05:38 Seg Neutrophils # Man 2.9 K/mm3 (1.8-7.7) 04/04/18 06:05 Band Neutrophils # 0.1 K/mm3 04/04/18 06:05 Lymphocytes # (Manual) 0.7 K/mm3 (1.2-5.4) L 04/04/18 06:05 Abs React Lymphs (Man) 0.0 K/mm3 04/04/18 06:05 Monocytes # (Manual) 1.2 K/mm3 (0.0-0.8) H 04/04/18 06:05 Eosinophils # (Manual) 0.2 K/mm3 (0.0-0.4) 04/04/18 06:05 Basophils # (Manual) 0.0 K/mm3 (0.0-0.1) 04/04/18 06:05 Metamyelocytes # 0.1 K/mm3 04/04/18 06:05 Myelocytes # 0.0 K/mm3 04/04/18 06:05 Promyelocytes # 0.0 K/mm3 04/04/18 06:05 Blast Cells # 0.0 K/mm3 04/04/18 06:05 WBC Morphology Not Reportable 04/04/18 06:05 Hypersegmented Neuts Not Reportable 04/04/18 06:05 Hyposegmented Neuts Not Reportable 04/04/18 06:05 Hypogranular Neuts Not Reportable 04/04/18 06:05 Smudge Cells Not Reportable 04/04/18 06:05 Toxic Granulation Not Reportable 04/04/18 06:05 Toxic Vacuolation Not Reportable 04/04/18 06:05 Dohle Bodies Not Reportable 04/04/18 06:05 Pelger-Huet Anomaly Not Reportable 04/04/18 06:05 Loi Rods Not Reportable 04/04/18 06:05 Platelet Estimate Appears normal 04/04/18 06:05 Clumped Platelets Not Reportable 04/04/18 06:05 Plt Clumps, EDTA Not Reportable 04/04/18 06:05 Large Platelets Not Reportable 04/04/18 06:05 Giant Platelets Not Reportable 04/04/18 06:05 Platelet Satelliting Not Reportable 04/04/18 06:05 Plt Morphology Comment Not Reportable 04/04/18 06:05 RBC Morphology Not Reportable 04/04/18 06:05 Dimorphic RBCs Not Reportable 04/04/18 06:05 Polychromasia Not Reportable 04/04/18 06:05 Hypochromasia Few 04/04/18 06:05 Poikilocytosis Not Reportable 04/04/18 06:05 Anisocytosis 1+ 04/04/18 06:05 Microcytosis Not Reportable 04/04/18 06:05 Macrocytosis Not Reportable 04/04/18 06:05 Spherocytes Not Reportable 04/04/18 06:05 Pappenheimer Bodies Not Reportable 04/04/18 06:05 Sickle Cells Not Reportable 04/04/18 06:05 Target Cells Not Reportable 04/04/18 06:05 Tear Drop Cells Not Reportable 04/04/18 06:05 Ovalocytes Not Reportable 04/04/18 06:05 Helmet Cells Not Reportable 04/04/18 06:05 [place] Bodies Not Reportable 04/04/18 06:05 [place] Rings Not Reportable 04/04/18 06:05 [place] Cells Not Reportable 04/04/18 06:05 Bite Cells Not Reportable 04/04/18 06:05 Crenated Cell Not Reportable 04/04/18 06:05 Elliptocytes Not Reportable 04/04/18 06:05 Acanthocytes (Spur) Not Reportable 04/04/18 06:05 Rouleaux Not Reportable 04/04/18 06:05 Hemoglobin C Crystals Not Reportable 04/04/18 06:05 Schistocytes Not Reportable 04/04/18 06:05 Malaria parasites Not Reportable 04/04/18 06:05 Lev Bodies Not Reportable 04/04/18 06:05 Hem Pathologist Commnt No 04/04/18 06:05 POC ABG pH 7.405 (7.35-7.45) 03/28/18 03:49 POC ABG pCO2 38.6 (35-45) 03/28/18 03:49 POC ABG pO2 102 (80-105) 03/28/18 03:49 POC ABG HCO3 24.2 03/28/18 03:49 POC ABG Total CO2 25 03/28/18 03:49 POC ABG O2 Sat 98 03/28/18 03:49 POC ABG Base Excess 0 03/28/18 03:49 VBG pH 7.000 (7.320-7.420) L* 03/25/18 14:41 FiO2 25 % 03/28/18 03:49 Sodium 146 mmol/L (137-145) H D 04/08/18 05:38 Potassium 4.0 mmol/L (3.6-5.0) 04/08/18 05:38 Chloride 113.3 mmol/L (98-107) H 04/08/18 05:38 Carbon Dioxide 21 mmol/L (22-30) L 04/08/18 05:38 Anion Gap 16 mmol/L 04/08/18 05:38 BUN 28 mg/dL (9-20) H 04/08/18 05:38 Creatinine 3.2 mg/dL (0.8-1.5) H 04/08/18 05:38 Estimated GFR 25 ml/min 04/08/18 05:38 BUN/Creatinine Ratio 9 % 04/08/18 05:38 Glucose 113 mg/dL (75-100) H 04/08/18 05:38 POC Glucose 75 (70-105) 04/09/18 08:10 Hemoglobin A1c 8.9 % (4-6) H 03/25/18 18:55 Lactic Acid 1.80 mmol/L (0.7-2.0) 03/26/18 04:25 Calcium 8.0 mg/dL (8.4-10.2) L 04/08/18 05:38 Phosphorus 3.70 mg/dL (2.5-4.5) 04/03/18 05:46 Magnesium 2.00 mg/dL (1.7-2.3) 04/08/18 05:38 Iron 54 ug/dL (49-181) 03/28/18 04:35 TIBC 115 mcg/dL (250-450) L 03/28/18 04:35 Transferrin 94 mg/dl (180-329) L 03/28/18 04:35 Ferritin 412.1 ng/mL (13.0-400.0) H 03/28/18 04:35 Total Bilirubin 0.40 mg/dL (0.1-1.2) 04/08/18 05:38 Direct Bilirubin < 0.2 mg/dL (0-0.2) 03/25/18 14:08 Indirect Bilirubin 0.1 mg/dL 03/25/18 14:08 AST 20 units/L (5-40) 04/08/18 05:38 ALT 17 units/L (7-56) 04/08/18 05:38 Alkaline Phosphatase 75 units/L (35-129) 04/08/18 05:38 Total Creatine Kinase 226 units/L (55-170) H 03/25/18 18:09 CK-MB (CK-2) 3.7 ng/mL (0.0-4.0) 03/25/18 18:09 CK-MB (CK-2) Rel Index 1.6 (0-4) 03/25/18 18:09 Troponin T 0.033 ng/mL (0.00-0.029) H 03/25/18 18:09 NT-Pro-B Natriuret Pep 1858 pg/mL (0-900) H 04/07/18 05:46 Total Protein 6.0 g/dL (6.3-8.2) L 04/08/18 05:38 Albumin 2.9 g/dL (3.9-5) L 04/08/18 05:38 Albumin/Globulin Ratio 0.9 % 04/08/18 05:38 Triglycerides 185 mg/dL (2-149) H 03/25/18 18:09 Cholesterol 215 mg/dL (50-199) H 03/25/18 18:09 LDL Cholesterol Direct 144 mg/dL (50-130) H 03/25/18 18:09 HDL Cholesterol 48 mg/dL (40-59) 03/25/18 18:09 Cholesterol/HDL Ratio 4.47 % 03/25/18 18:09 Urine Color Yellow (Yellow) 04/08/18 17:30 Urine Turbidity Clear (Clear) 04/08/18 17:30 Urine pH 5.0 (5.0-7.0) 04/08/18 17:30 Ur Specific [place] 1.011 (1.003-1.030) 04/08/18 17:30 Urine Protein 100 mg/dl mg/dL (Negative) 04/08/18 17:30 Urine Glucose (UA) Neg mg/dL (Negative) 04/08/18 17:30 Urine Ketones Neg mg/dL (Negative) 04/08/18 17:30 Urine Blood Sm (Negative) 04/08/18 17:30 Urine Nitrite Neg (Negative) 04/08/18 17:30 Urine Bilirubin Neg (Negative) 04/08/18 17:30 Urine Urobilinogen < 2.0 mg/dL (<2.0) 04/08/18 17:30 Ur Leukocyte Esterase Neg (Negative) 04/08/18 17:30 Urine WBC (Auto) < 1.0 /HPF (0.0-6.0) 04/08/18 17:30 Urine RBC (Auto) 4.0 /HPF (0.0-6.0) 04/08/18 17:30 Urine Bacteria (Auto) 1+ /HPF (Negative) 04/08/18 17:30 Uric Acid Crystals 2+ 04/05/18 06:18 Hyaline Casts 1 /LPF 04/08/18 17:30 Urine Mucus Few /HPF 04/08/18 17:30 Urine Yeast (Budding) 1+ /HPF 04/05/18 06:18 Urine Eosinophils None seen (None Seen) 04/07/18 14:00 Urine Creatinine 63.0 mg/dL (0.1-20.0) H 04/08/18 17:30 Urine Microalbumin 206.9 mg/dL (0.1-34.0) H 04/08/18 17:30 Microalb/Creat Ratio 3284.1 ug/mg 04/08/18 17:30 Urine Sodium 94 mmol/L 04/07/18 14:00 Urine Chloride 91.4 mmolL (110-250) L 04/07/18 14:00 Urine Urea Nitrogen 215 04/07/18 14:00 Random Vancomycin 14.6 ug/mL (0-40.0) 04/07/18 05:46 Urine Opiates Screen Presumptive negative 03/25/18 14:19 Urine Methadone Screen Presumptive negative 03/25/18 14:19 Ur Barbiturates Screen Presumptive negative 03/25/18 14:19 Ur Phencyclidine Scrn Presumptive negative 03/25/18 14:19 Ur Amphetamines Screen Presumptive negative 03/25/18 14:19 U Benzodiazepines Scrn Presumptive negative 03/25/18 14:19 Urine Cocaine Screen Presumptive negative 03/25/18 14:19 U Marijuana (THC) Screen Presumptive negative 03/25/18 14:19 Drugs of Abuse Note Disclamer 03/25/18 14:19 Blood Type O POSITIVE 04/04/18 20:14 Antibody Screen Negative 04/04/18 20:14 Crossmatch See Detail 04/04/18 20:14
[2018-04-09 11:17] LABS: Calcium 7.9 mg/dL (8.4-10.2)
[2018-04-09 15:44] LABS: Protein/Creatinine Ratio,Urine 4.57
--- NOTE | 2018-04-09 19:00 | Progress Note ---
Assessment and Plan SIRS possibly from DKA Acute hypoxic respiratory failure s/p MVS Acute encephalopathy( toxic, metabolic) Diabetic ketoacidosis Severe metabolic acidosis Severe Hyperkalemia ( Potassium was 8.1 on admission) BELKIS (acute kidney injury)secondary to severe dehydration BUN/creatinine on March 16 was 41/1.5, on admission was 43/2.5. Hypernatremia -Contnue with HD/UF for fluid management -Continues to do well from a pulmonary standpoint -VTE prophylaxis -Stress ulcer prophylaxis -Electrolyte management -Avoid nephrotoxic agents and adjust all medications for CrCl/GFR -CXR prn -Mobility, PT/OT -will follow prn Subjective Date of service: 04/09/18 Principal diagnosis: Acute hypoxic respiratory failure, DKA, BELKIS, Acute encephalopathy Interval history: Patient was seen and examined. Vitals, labs, medications and chart reviewed. No acute overnight events reported or documented Denies any chest pain, no shortness of breath, no fevers or chills. O2 sats 98% on 2L NC. Flat affect. "My feet are swollen" Objective - Exam Narrative Exam: General appearance: well-developed, well-nourished EENT: ATNC, PERRL, mucous membranes moist Neck: no JVD, no carotid bruit Respiratory: Present: Clear to Ascultation. Absent: Rales, Ronchi Cardiology: regular, S1S2, systolic murmur Gastrointestinal: normoactive bowel sounds, no tenderness, no distended Integumentary: no rash, warm and dry Neurologic: no focal deficit, no asterixis Musculoskeletal: bilateral LExt edema Psychiatric: cooperative Vital Signs - 12hr 04/09/18 04/09/18 04/09/18 07:21 09:29 15:05 Temperature 98.3 F 97.5 F L Pulse Rate 64 64 69 Respiratory 24 24 Rate Blood Pressure 167/86 167/86 141/76 O2 Sat by Pulse 99 94 Oximetry 04/09/18 15:11 Temperature Pulse Rate 69 Respiratory Rate Blood Pressure 141/76 O2 Sat by Pulse Oximetry Constitutional: no acute distress, other (middle aged AAM, normocephalic and atraumatic) Eyes: non-icteric ENT: oropharynx moist, other (mallampatti 2) Neck: supple, no lymphadenopathy, no JVD, other (no thyromegaly) Effort: normal Ascultation: Bilateral: diminished breath sounds, rhonchi (posterior base) Percussion: Bilateral: not dull Cardiovascular: regular rate and rhythm, other (No R/M) Gastrointestinal: normoactive bowel sounds, soft, non-tender, non-distended, other ( No HSM) Integumentary: normal Extremities: no cyanosis, pulses normal, no ischemia or petechiae, edema (to hands) Neurologic: normal mental status, non-focal exam (grossly), pupils equal and round, CN II-XII normal, motor strength normal and Psychiatric: mood appropriate, affect normal CBC and BMP: 04/08/18 05:38 04/09/18 10:08 ABG, PT/INR, D-dimer: ABG POC ABG pH 7.405 (7.35-7.45) 03/28/18 03:49 POC ABG pCO2 38.6 (35-45) 03/28/18 03:49 POC ABG pO2 102 (80-105) 03/28/18 03:49 POC ABG HCO3 24.2 03/28/18 03:49 POC ABG Total CO2 25 03/28/18 03:49 POC ABG O2 Sat 98 03/28/18 03:49 Abnormal lab findings: Abnormal Labs 03/25/18 03/25/18 03/25/18 13:48 14:00 14:00 WBC 15.3 H RBC Hgb 10.5 L Hct MCV 95 H MCH 27 L MCHC 28 L RDW Plt Count Lymph % (Auto) 8.5 L [place] % (Auto) Lymph # [place] # Seg Neutrophils % 86.4 H Seg Neuts % (Manual) Lymphocytes % (Manual) Monocytes % (Manual) Seg Neutrophils # 13.2 H Lymphocytes # (Manual) Monocytes # (Manual) POC ABG pH POC ABG pCO2 POC ABG pO2 VBG pH Sodium 132 L Potassium 8.1 H* Chloride 87.8 L Carbon Dioxide 3 L* BUN 43 H Creatinine 2.6 H Glucose 1026 H* POC Glucose > 500 H Hemoglobin A1c Lactic Acid Calcium Phosphorus TIBC Transferrin Ferritin AST Total Creatine Kinase Troponin T NT-Pro-B Natriuret Pep Total Protein Albumin Triglycerides Cholesterol LDL Cholesterol Direct Urine Creatinine Urine Microalbumin Urine Chloride Urine Total Protein Crossmatch 03/25/18 03/25/18 03/25/18 14:00 14:08 14:29 WBC RBC Hgb Hct MCV MCH MCHC RDW Plt Count Lymph % (Auto) [place] % (Auto) Lymph # [place] # Seg Neutrophils % Seg Neuts % (Manual) Lymphocytes % (Manual) Monocytes % (Manual) Seg Neutrophils # Lymphocytes # (Manual) Monocytes # (Manual) POC ABG pH 6.952 L POC ABG pCO2 25.8 L POC ABG pO2 559 H VBG pH Sodium Potassium Chloride Carbon Dioxide BUN Creatinine Glucose POC Glucose Hemoglobin A1c Lactic Acid 10.10 H* Calcium Phosphorus 8.70 H TIBC Transferrin Ferritin AST Total Creatine Kinase Troponin T NT-Pro-B Natriuret Pep Total Protein Albumin 2.6 L Triglycerides Cholesterol LDL Cholesterol Direct Urine Creatinine Urine Microalbumin Urine Chloride Urine Total Protein Crossmatch 03/25/18 03/25/18 03/25/18 14:41 15:40 15:40 WBC RBC Hgb Hct MCV MCH MCHC RDW Plt Count Lymph % (Auto) [place] % (Auto) Lymph # [place] # Seg Neutrophils % Seg Neuts % (Manual) Lymphocytes % (Manual) Monocytes % (Manual) Seg Neutrophils # Lymphocytes # (Manual) Monocytes # (Manual) POC ABG pH POC ABG pCO2 POC ABG pO2 VBG pH 7.000 L* Sodium Potassium 6.7 H* Chloride 97.5 L Carbon Dioxide 5 L* BUN 43 H Creatinine 2.5 H Glucose 893 H* POC Glucose Hemoglobin A1c Lactic Acid Calcium 7.5 L Phosphorus 9.10 H TIBC Transferrin Ferritin AST Total Creatine Kinase Troponin T NT-Pro-B Natriuret Pep Total Protein Albumin Triglycerides Cholesterol LDL Cholesterol Direct Urine Creatinine Urine Microalbumin Urine Chloride Urine Total Protein Crossmatch 03/25/18 03/25/18 03/25/18 18:09 18:12 18:55 WBC RBC Hgb Hct MCV MCH MCHC RDW Plt Count Lymph % (Auto) [place] % (Auto) Lymph # [place] # Seg Neutrophils % Seg Neuts % (Manual) Lymphocytes % (Manual) Monocytes % (Manual) Seg Neutrophils # Lymphocytes # (Manual) Monocytes # (Manual) POC ABG pH POC ABG pCO2 POC ABG pO2 VBG pH Sodium 133 L Potassium 5.7 H Chloride 93.1 L Carbon Dioxide 10 L BUN 43 H Creatinine 2.5 H Glucose 786 H* POC Glucose Hemoglobin A1c 8.9 H Lactic Acid Calcium 7.8 L Phosphorus TIBC Transferrin Ferritin AST Total Creatine Kinase 226 H Troponin T 0.033 H NT-Pro-B Natriuret Pep Total Protein Albumin Triglycerides 185 H Cholesterol 215 H LDL Cholesterol Direct 144 H Urine Creatinine Urine Microalbumin Urine Chloride Urine Total Protein Crossmatch 03/25/18 03/25/18 03/25/18 18:55 21:00 21:03 WBC RBC Hgb Hct MCV MCH MCHC RDW Plt Count Lymph % (Auto) [place] % (Auto) Lymph # [place] # Seg Neutrophils % Seg Neuts % (Manual) Lymphocytes % (Manual) Monocytes % (Manual) Seg Neutrophils # Lymphocytes # (Manual) Monocytes # (Manual) POC ABG pH POC ABG pCO2 POC ABG pO2 VBG pH Sodium 136 L Potassium 6.7 H* Chloride Carbon Dioxide 7 L* BUN 45 H Creatinine 2.6 H Glucose 879 H* POC Glucose > 500 H Hemoglobin A1c Lactic Acid Calcium 7.8 L Phosphorus 9.20 H TIBC Transferrin Ferritin AST Total Creatine Kinase Troponin T NT-Pro-B Natriuret Pep Total Protein Albumin Triglycerides Cholesterol LDL Cholesterol Direct Urine Creatinine Urine Microalbumin Urine Chloride Urine Total Protein Crossmatch 03/25/18 03/25/18 03/25/18 21:39 22:06 23:20 WBC RBC Hgb Hct MCV MCH MCHC RDW Plt Count Lymph % (Auto) [place] % (Auto) Lymph # [place] # Seg Neutrophils % Seg Neuts % (Manual) Lymphocytes % (Manual) Monocytes % (Manual) Seg Neutrophils # Lymphocytes # (Manual) Monocytes # (Manual) POC ABG pH 7.272 L POC ABG pCO2 14.2 L POC ABG pO2 263 H VBG pH Sodium Potassium Chloride Carbon Dioxide 7 L* BUN 47 H Creatinine 2.9 H Glucose 702 H* POC Glucose > 500 H Hemoglobin A1c Lactic Acid Calcium 7.6 L Phosphorus TIBC Transferrin Ferritin AST Total Creatine Kinase Troponin T NT-Pro-B Natriuret Pep Total Protein Albumin Triglycerides Cholesterol LDL Cholesterol Direct Urine Creatinine Urine Microalbumin Urine Chloride Urine Total Protein Crossmatch 03/25/18 03/26/18 03/26/18 23:20 00:17 01:08 WBC RBC Hgb Hct MCV MCH MCHC RDW Plt Count Lymph % (Auto) [place] % (Auto) Lymph # [place] # Seg Neutrophils % Seg Neuts % (Manual) Lymphocytes % (Manual) Monocytes % (Manual) Seg Neutrophils # Lymphocytes # (Manual) Monocytes # (Manual) POC ABG pH POC ABG pCO2 POC ABG pO2 VBG pH Sodium Potassium Chloride Carbon Dioxide BUN Creatinine Glucose POC Glucose > 500 H 447 H 484 H Hemoglobin A1c Lactic Acid Calcium Phosphorus TIBC Transferrin Ferritin AST Total Creatine Kinase Troponin T NT-Pro-B Natriuret Pep Total Protein Albumin Triglycerides Cholesterol LDL Cholesterol Direct Urine Creatinine Urine Microalbumin Urine Chloride Urine Total Protein Crossmatch 03/26/18 03/26/18 03/26/18 02:31 03:07 04:09 WBC RBC Hgb Hct MCV MCH MCHC RDW Plt Count Lymph % (Auto) [place] % (Auto) Lymph # [place] # Seg Neutrophils % Seg Neuts % (Manual) Lymphocytes % (Manual) Monocytes % (Manual) Seg Neutrophils # Lymphocytes # (Manual) Monocytes # (Manual) POC ABG pH POC ABG pCO2 POC ABG pO2 VBG pH Sodium Potassium Chloride Carbon Dioxide BUN Creatinine Glucose POC Glucose > 500 H 467 H 361 H Hemoglobin A1c Lactic Acid Calcium Phosphorus TIBC Transferrin Ferritin AST Total Creatine Kinase Troponin T NT-Pro-B Natriuret Pep Total Protein Albumin Triglycerides Cholesterol LDL Cholesterol Direct Urine Creatinine Urine Microalbumin Urine Chloride Urine Total Protein Crossmatch 03/26/18 03/26/18 03/26/18 04:25 05:24 06:19 WBC RBC Hgb Hct MCV MCH MCHC RDW Plt Count Lymph % (Auto) [place] % (Auto) Lymph # [place] # Seg Neutrophils % Seg Neuts % (Manual) Lymphocytes % (Manual) Monocytes % (Manual) Seg Neutrophils # Lymphocytes # (Manual) Monocytes # (Manual) POC ABG pH POC ABG pCO2 POC ABG pO2 VBG pH Sodium 150 H D Potassium 3.4 L D Chloride 118.3 H Carbon Dioxide 16 L D BUN 45 H Creatinine 2.7 H Glucose 278 H POC Glucose 306 H 188 H Hemoglobin A1c Lactic Acid Calcium 7.7 L Phosphorus TIBC Transferrin Ferritin AST Total Creatine Kinase Troponin T NT-Pro-B Natriuret Pep Total Protein Albumin Triglycerides Cholesterol LDL Cholesterol Direct Urine Creatinine Urine Microalbumin Urine Chloride Urine Total Protein Crossmatch 03/26/18 03/26/18 03/26/18 07:09 08:20 09:12 WBC RBC Hgb Hct MCV MCH MCHC RDW Plt Count Lymph % (Auto) [place] % (Auto) Lymph # [place] # Seg Neutrophils % Seg Neuts % (Manual) Lymphocytes % (Manual) Monocytes % (Manual) Seg Neutrophils # Lymphocytes # (Manual) Monocytes # (Manual) POC ABG pH 7.530 H POC ABG pCO2 22.0 L POC ABG pO2 147 H VBG pH Sodium Potassium Chloride Carbon Dioxide BUN Creatinine Glucose POC Glucose 148 H 170 H Hemoglobin A1c Lactic Acid Calcium Phosphorus TIBC Transferrin Ferritin AST Total Creatine Kinase Troponin T NT-Pro-B Natriuret Pep Total Protein Albumin Triglycerides Cholesterol LDL Cholesterol Direct Urine Creatinine Urine Microalbumin Urine Chloride Urine Total Protein Crossmatch 03/26/18 03/26/18 03/26/18 09:15 10:30 10:46 WBC RBC Hgb Hct MCV MCH MCHC RDW Plt Count Lymph % (Auto) [place] % (Auto) Lymph # [place] # Seg Neutrophils % Seg Neuts % (Manual) Lymphocytes % (Manual) Monocytes % (Manual) Seg Neutrophils # Lymphocytes # (Manual) Monocytes # (Manual) POC ABG pH POC ABG pCO2 POC ABG pO2 VBG pH Sodium 152 H Potassium 3.1 L Chloride 121.4 H Carbon Dioxide BUN 43 H Creatinine 2.6 H Glucose 105 H POC Glucose 177 H 125 H Hemoglobin A1c Lactic Acid Calcium 7.5 L Phosphorus TIBC Transferrin Ferritin AST Total Creatine Kinase Troponin T NT-Pro-B Natriuret Pep Total Protein Albumin Triglycerides Cholesterol LDL Cholesterol Direct Urine Creatinine Urine Microalbumin Urine Chloride Urine Total Protein Crossmatch 03/26/18 03/26/18 03/26/18 14:57 15:35 18:12 WBC RBC Hgb Hct MCV MCH MCHC RDW Plt Count Lymph % (Auto) [place] % (Auto) Lymph # [place] # Seg Neutrophils % Seg Neuts % (Manual) Lymphocytes % (Manual) Monocytes % (Manual) Seg Neutrophils # Lymphocytes # (Manual) Monocytes # (Manual) POC ABG pH POC ABG pCO2 POC ABG pO2 VBG pH Sodium 148 H Potassium Chloride 117.5 H Carbon Dioxide 18 L BUN 43 H Creatinine 2.5 H Glucose 135 H POC Glucose 159 H 245 H Hemoglobin A1c Lactic Acid Calcium 7.3 L Phosphorus TIBC Transferrin Ferritin AST Total Creatine Kinase Troponin T NT-Pro-B Natriuret Pep Total Protein Albumin Triglycerides Cholesterol LDL Cholesterol Direct Urine Creatinine Urine Microalbumin Urine Chloride Urine Total Protein Crossmatch 03/26/18 03/26/18 03/27/18 19:27 21:42 02:03 WBC RBC Hgb Hct MCV MCH MCHC RDW Plt Count Lymph % (Auto) [place] % (Auto) Lymph # [place] # Seg Neutrophils % Seg Neuts % (Manual) Lymphocytes % (Manual) Monocytes % (Manual) Seg Neutrophils # Lymphocytes # (Manual) Monocytes # (Manual) POC ABG pH POC ABG pCO2 POC ABG pO2 VBG pH Sodium Potassium Chloride 115.0 H Carbon Dioxide 20 L BUN 42 H Creatinine 2.4 H Glucose 221 H POC Glucose 261 H 254 H Hemoglobin A1c Lactic Acid Calcium 7.1 L Phosphorus TIBC Transferrin Ferritin AST Total Creatine Kinase Troponin T NT-Pro-B Natriuret Pep Total Protein Albumin Triglycerides Cholesterol LDL Cholesterol Direct Urine Creatinine Urine Microalbumin Urine Chloride Urine Total Protein Crossmatch 03/27/18 03/27/18 03/27/18 03:35 03:35 05:20 WBC 12.3 H RBC 3.05 L Hgb 8.3 L Hct 25.3 L D MCV 83 L MCH 27 L MCHC RDW Plt Count Lymph % (Auto) [place] % (Auto) 8.6 H Lymph # [place] # 1.1 H Seg Neutrophils % 76.5 H Seg Neuts % (Manual) Lymphocytes % (Manual) Monocytes % (Manual) Seg Neutrophils # 9.4 H Lymphocytes # (Manual) Monocytes # (Manual) POC ABG pH POC ABG pCO2 POC ABG pO2 VBG pH Sodium Potassium Chloride 112.6 H Carbon Dioxide BUN 36 H Creatinine 2.1 H Glucose 244 H POC Glucose 263 H Hemoglobin A1c Lactic Acid Calcium 7.1 L Phosphorus TIBC Transferrin Ferritin AST 44 H Total Creatine Kinase Troponin T NT-Pro-B Natriuret Pep Total Protein 5.1 L D Albumin 2.1 L Triglycerides Cholesterol LDL Cholesterol Direct Urine Creatinine Urine Microalbumin Urine Chloride Urine Total Protein Crossmatch 03/27/18 03/27/18 03/27/18 08:22 13:00 14:06 WBC RBC Hgb Hct MCV MCH MCHC RDW Plt Count Lymph % (Auto) [place] % (Auto) Lymph # [place] # Seg Neutrophils % Seg Neuts % (Manual) Lymphocytes % (Manual) Monocytes % (Manual) Seg Neutrophils # Lymphocytes # (Manual) Monocytes # (Manual) POC ABG pH POC ABG pCO2 34.7 L POC ABG pO2 VBG pH Sodium Potassium Chloride Carbon Dioxide BUN Creatinine Glucose POC Glucose 306 H 233 H Hemoglobin A1c Lactic Acid Calcium Phosphorus TIBC Transferrin Ferritin AST Total Creatine Kinase Troponin T NT-Pro-B Natriuret Pep Total Protein Albumin Triglycerides Cholesterol LDL Cholesterol Direct Urine Creatinine Urine Microalbumin Urine Chloride Urine Total Protein Crossmatch 03/27/18 03/27/18 03/27/18 16:15 18:11 21:44 WBC RBC Hgb Hct MCV MCH MCHC RDW Plt Count Lymph % (Auto) [place] % (Auto) Lymph # [place] # Seg Neutrophils % Seg Neuts % (Manual) Lymphocytes % (Manual) Monocytes % (Manual) Seg Neutrophils # Lymphocytes # (Manual) Monocytes # (Manual) POC ABG pH POC ABG pCO2 POC ABG pO2 VBG pH Sodium Potassium Chloride Carbon Dioxide BUN Creatinine Glucose POC Glucose 243 H 226 H 224 H Hemoglobin A1c Lactic Acid Calcium Phosphorus TIBC Transferrin Ferritin AST Total Creatine Kinase Troponin T NT-Pro-B Natriuret Pep Total Protein Albumin Triglycerides Cholesterol LDL Cholesterol Direct Urine Creatinine Urine Microalbumin Urine Chloride Urine Total Protein Crossmatch 03/28/18 03/28/18 03/28/18 02:07 04:35 04:35 WBC RBC Hgb Hct MCV MCH MCHC RDW Plt Count Lymph % (Auto) [place] % (Auto) Lymph # [place] # Seg Neutrophils % Seg Neuts % (Manual) Lymphocytes % (Manual) Monocytes % (Manual) Seg Neutrophils # Lymphocytes # (Manual) Monocytes # (Manual) POC ABG pH POC ABG pCO2 POC ABG pO2 VBG pH Sodium Potassium Chloride Carbon Dioxide BUN Creatinine Glucose POC Glucose 220 H Hemoglobin A1c Lactic Acid Calcium Phosphorus TIBC 115 L Transferrin 94 L Ferritin 412.1 H AST Total Creatine Kinase Troponin T NT-Pro-B Natriuret Pep Total Protein Albumin Triglycerides Cholesterol LDL Cholesterol Direct Urine Creatinine Urine Microalbumin Urine Chloride Urine Total Protein Crossmatch 03/28/18 03/28/18 03/28/18 05:27 09:52 10:59 WBC RBC 3.22 L Hgb 9.1 L Hct 26.8 L MCV 83 L MCH MCHC RDW Plt Count 134 L Lymph % (Auto) [place] % (Auto) Lymph # [place] # Seg Neutrophils % Seg Neuts % (Manual) Lymphocytes % (Manual) Monocytes % (Manual) Seg Neutrophils # Lymphocytes # (Manual) Monocytes # (Manual) POC ABG pH POC ABG pCO2 POC ABG pO2 VBG pH Sodium Potassium Chloride Carbon Dioxide BUN Creatinine Glucose POC Glucose 280 H 332 H Hemoglobin A1c Lactic Acid Calcium Phosphorus TIBC Transferrin Ferritin AST Total Creatine Kinase Troponin T NT-Pro-B Natriuret Pep Total Protein Albumin Triglycerides Cholesterol LDL Cholesterol Direct Urine Creatinine Urine Microalbumin Urine Chloride Urine Total Protein Crossmatch 03/28/18 03/28/18 03/28/18 10:59 14:39 17:47 WBC RBC Hgb Hct MCV MCH MCHC RDW Plt Count Lymph % (Auto) [place] % (Auto) Lymph # [place] # Seg Neutrophils % Seg Neuts % (Manual) Lymphocytes % (Manual) Monocytes % (Manual) Seg Neutrophils # Lymphocytes # (Manual) Monocytes # (Manual) POC ABG pH POC ABG pCO2 POC ABG pO2 VBG pH Sodium 136 L Potassium Chloride Carbon Dioxide BUN 29 H Creatinine Glucose 310 H POC Glucose 250 H 132 H Hemoglobin A1c Lactic Acid Calcium 7.0 L Phosphorus TIBC Transferrin Ferritin AST Total Creatine Kinase Troponin T NT-Pro-B Natriuret Pep Total Protein Albumin Triglycerides Cholesterol LDL Cholesterol Direct Urine Creatinine Urine Microalbumin Urine Chloride Urine Total Protein Crossmatch 03/29/18 03/29/18 03/29/18 01:49 04:23 05:45 WBC RBC 3.13 L Hgb 8.8 L Hct 25.8 L MCV 82 L MCH MCHC RDW 12.7 L Plt Count 132 L Lymph % (Auto) 10.8 L [place] % (Auto) 9.1 H Lymph # 1.0 L [place] # Seg Neutrophils % 79.1 H Seg Neuts % (Manual) Lymphocytes % (Manual) Monocytes % (Manual) Seg Neutrophils # Lymphocytes # (Manual) Monocytes # (Manual) POC ABG pH POC ABG pCO2 POC ABG pO2 VBG pH Sodium 134 L Potassium Chloride Carbon Dioxide BUN 27 H Creatinine Glucose 172 H POC Glucose 122 H Hemoglobin A1c Lactic Acid Calcium 7.1 L Phosphorus TIBC Transferrin Ferritin AST Total Creatine Kinase Troponin T NT-Pro-B Natriuret Pep Total Protein Albumin Triglycerides Cholesterol LDL Cholesterol Direct Urine Creatinine Urine Microalbumin Urine Chloride Urine Total Protein Crossmatch 03/29/18 03/29/18 03/29/18 05:57 09:19 13:09 WBC RBC Hgb Hct MCV MCH MCHC RDW Plt Count Lymph % (Auto) [place] % (Auto) Lymph # [place] # Seg Neutrophils % Seg Neuts % (Manual) Lymphocytes % (Manual) Monocytes % (Manual) Seg Neutrophils # Lymphocytes # (Manual) Monocytes # (Manual) POC ABG pH POC ABG pCO2 POC ABG pO2 VBG pH Sodium Potassium Chloride Carbon Dioxide BUN Creatinine Glucose POC Glucose 224 H 316 H 345 H Hemoglobin A1c Lactic Acid Calcium Phosphorus TIBC Transferrin Ferritin AST Total Creatine Kinase Troponin T NT-Pro-B Natriuret Pep Total Protein Albumin Triglycerides Cholesterol LDL Cholesterol Direct Urine Creatinine Urine Microalbumin Urine Chloride Urine Total Protein Crossmatch 03/29/18 03/29/18 03/29/18 16:27 22:26 22:36 WBC RBC Hgb Hct MCV MCH MCHC RDW Plt Count Lymph % (Auto) [place] % (Auto) Lymph # [place] # Seg Neutrophils % Seg Neuts % (Manual) Lymphocytes % (Manual) Monocytes % (Manual) Seg Neutrophils # Lymphocytes # (Manual) Monocytes # (Manual) POC ABG pH POC ABG pCO2 POC ABG pO2 VBG pH Sodium Potassium Chloride Carbon Dioxide BUN Creatinine Glucose POC Glucose 210 H < 40 L 172 H Hemoglobin A1c Lactic Acid Calcium Phosphorus TIBC Transferrin Ferritin AST Total Creatine Kinase Troponin T NT-Pro-B Natriuret Pep Total Protein Albumin Triglycerides Cholesterol LDL Cholesterol Direct Urine Creatinine Urine Microalbumin Urine Chloride Urine Total Protein Crossmatch 03/30/18 03/30/18 03/30/18 00:07 05:12 06:39 WBC RBC 2.95 L Hgb 8.3 L Hct 24.6 L MCV 83 L MCH MCHC RDW 12.9 L Plt Count Lymph % (Auto) [place] % (Auto) 13.5 H Lymph # [place] # 0.9 H Seg Neutrophils % Seg Neuts % (Manual) Lymphocytes % (Manual) Monocytes % (Manual) Seg Neutrophils # Lymphocytes # (Manual) Monocytes # (Manual) POC ABG pH POC ABG pCO2 POC ABG pO2 VBG pH Sodium Potassium Chloride Carbon Dioxide BUN Creatinine Glucose POC Glucose 69 L 213 H Hemoglobin A1c Lactic Acid Calcium Phosphorus TIBC Transferrin Ferritin AST Total Creatine Kinase Troponin T NT-Pro-B Natriuret Pep Total Protein Albumin Triglycerides Cholesterol LDL Cholesterol Direct Urine Creatinine Urine Microalbumin Urine Chloride Urine Total Protein Crossmatch 03/30/18 03/30/18 03/30/18 06:39 10:06 13:59 WBC RBC Hgb Hct MCV MCH MCHC RDW Plt Count Lymph % (Auto) [place] % (Auto) Lymph # [place] # Seg Neutrophils % Seg Neuts % (Manual) Lymphocytes % (Manual) Monocytes % (Manual) Seg Neutrophils # Lymphocytes # (Manual) Monocytes # (Manual) POC ABG pH POC ABG pCO2 POC ABG pO2 VBG pH Sodium 133 L Potassium 3.5 L D Chloride 95.6 L Carbon Dioxide BUN 34 H Creatinine Glucose 241 H POC Glucose 368 H 237 H Hemoglobin A1c Lactic Acid Calcium 7.3 L Phosphorus TIBC Transferrin Ferritin AST Total Creatine Kinase Troponin T NT-Pro-B Natriuret Pep Total Protein Albumin Triglycerides Cholesterol LDL Cholesterol Direct Urine Creatinine Urine Microalbumin Urine Chloride Urine Total Protein Crossmatch 03/30/18 03/30/18 03/30/18 16:39 20:47 21:30 WBC RBC Hgb Hct MCV MCH MCHC RDW Plt Count Lymph % (Auto) [place] % (Auto) Lymph # [place] # Seg Neutrophils % Seg Neuts % (Manual) Lymphocytes % (Manual) Monocytes % (Manual) Seg Neutrophils # Lymphocytes # (Manual) Monocytes # (Manual) POC ABG pH POC ABG pCO2 POC ABG pO2 VBG pH Sodium Potassium Chloride Carbon Dioxide BUN Creatinine Glucose POC Glucose 176 H 60 L 113 H Hemoglobin A1c Lactic Acid Calcium Phosphorus TIBC Transferrin Ferritin AST Total Creatine Kinase Troponin T NT-Pro-B Natriuret Pep Total Protein Albumin Triglycerides Cholesterol LDL Cholesterol Direct Urine Creatinine Urine Microalbumin Urine Chloride Urine Total Protein Crossmatch 03/31/18 03/31/18 03/31/18 02:07 06:45 07:24 WBC RBC 3.06 L Hgb 8.6 L Hct 25.3 L MCV 83 L MCH MCHC RDW 12.7 L Plt Count Lymph % (Auto) [place] % (Auto) Lymph # [place] # Seg Neutrophils % Seg Neuts % (Manual) 73.0 H Lymphocytes % (Manual) 6.0 L Monocytes % (Manual) 21.0 H Seg Neutrophils # Lymphocytes # (Manual) 0.4 L Monocytes # (Manual) 1.4 H POC ABG pH POC ABG pCO2 POC ABG pO2 VBG pH Sodium Potassium Chloride Carbon Dioxide BUN Creatinine Glucose POC Glucose 140 H 260 H Hemoglobin A1c Lactic Acid Calcium Phosphorus TIBC Transferrin Ferritin AST Total Creatine Kinase Troponin T NT-Pro-B Natriuret Pep Total Protein Albumin Triglycerides Cholesterol LDL Cholesterol Direct Urine Creatinine Urine Microalbumin Urine Chloride Urine Total Protein Crossmatch 03/31/18 03/31/18 03/31/18 07:24 11:51 13:08 WBC RBC Hgb Hct MCV MCH MCHC RDW Plt Count Lymph % (Auto) [place] % (Auto) Lymph # [place] # Seg Neutrophils % Seg Neuts % (Manual) Lymphocytes % (Manual) Monocytes % (Manual) Seg Neutrophils # Lymphocytes # (Manual) Monocytes # (Manual) POC ABG pH POC ABG pCO2 POC ABG pO2 VBG pH Sodium 134 L Potassium Chloride Carbon Dioxide BUN 36 H Creatinine 1.8 H Glucose 271 H POC Glucose > 500 H > 500 H Hemoglobin A1c Lactic Acid Calcium 7.3 L Phosphorus TIBC Transferrin Ferritin AST Total Creatine Kinase Troponin T NT-Pro-B Natriuret Pep Total Protein Albumin Triglycerides Cholesterol LDL Cholesterol Direct Urine Creatinine Urine Microalbumin Urine Chloride Urine Total Protein Crossmatch 03/31/18 03/31/18 03/31/18 14:00 16:15 16:29 WBC RBC Hgb Hct MCV MCH MCHC RDW Plt Count Lymph % (Auto) [place] % (Auto) Lymph # [place] # Seg Neutrophils % Seg Neuts % (Manual) Lymphocytes % (Manual) Monocytes % (Manual) Seg Neutrophils # Lymphocytes # (Manual) Monocytes # (Manual) POC ABG pH POC ABG pCO2 POC ABG pO2 VBG pH Sodium Potassium Chloride Carbon Dioxide BUN Creatinine Glucose POC Glucose > 500 H 405 H 424 H Hemoglobin A1c Lactic Acid Calcium Phosphorus TIBC Transferrin Ferritin AST Total Creatine Kinase Troponin T NT-Pro-B Natriuret Pep Total Protein Albumin Triglycerides Cholesterol LDL Cholesterol Direct Urine Creatinine Urine Microalbumin Urine Chloride Urine Total Protein Crossmatch 03/31/18 04/01/18 04/01/18 21:14 00:21 05:51 WBC RBC 2.55 L Hgb 7.1 L Hct 21.2 L MCV 83 L MCH MCHC RDW 12.5 L Plt Count Lymph % (Auto) [place] % (Auto) Lymph # [place] # Seg Neutrophils % Seg Neuts % (Manual) Lymphocytes % (Manual) Monocytes % (Manual) 22.0 H Seg Neutrophils # Lymphocytes # (Manual) Monocytes # (Manual) 1.1 H POC ABG pH POC ABG pCO2 POC ABG pO2 VBG pH Sodium Potassium Chloride Carbon Dioxide BUN Creatinine Glucose POC Glucose 393 H 384 H Hemoglobin A1c Lactic Acid Calcium Phosphorus TIBC Transferrin Ferritin AST Total Creatine Kinase Troponin T NT-Pro-B Natriuret Pep Total Protein Albumin Triglycerides Cholesterol LDL Cholesterol Direct Urine Creatinine Urine Microalbumin Urine Chloride Urine Total Protein Crossmatch 04/01/18 04/01/18 04/01/18 05:51 06:52 11:13 WBC RBC Hgb Hct MCV MCH MCHC RDW Plt Count Lymph % (Auto) [place] % (Auto) Lymph # [place] # Seg Neutrophils % Seg Neuts % (Manual) Lymphocytes % (Manual) Monocytes % (Manual) Seg Neutrophils # Lymphocytes # (Manual) Monocytes # (Manual) POC ABG pH POC ABG pCO2 POC ABG pO2 VBG pH Sodium Potassium Chloride Carbon Dioxide BUN 35 H Creatinine Glucose 120 H POC Glucose 114 H Hemoglobin A1c Lactic Acid Calcium 7.3 L Phosphorus TIBC Transferrin Ferritin AST Total Creatine Kinase Troponin T NT-Pro-B Natriuret Pep Total Protein Albumin Triglycerides Cholesterol LDL Cholesterol Direct Urine Creatinine Urine Microalbumin Urine Chloride Urine Total Protein Crossmatch See Detail 04/01/18 04/01/18 04/01/18 11:16 12:06 16:04 WBC RBC Hgb 7.3 L Hct 21.5 L MCV MCH MCHC RDW Plt Count Lymph % (Auto) [place] % (Auto) Lymph # [place] # Seg Neutrophils % Seg Neuts % (Manual) Lymphocytes % (Manual) Monocytes % (Manual) Seg Neutrophils # Lymphocytes # (Manual) Monocytes # (Manual) POC ABG pH POC ABG pCO2 POC ABG pO2 VBG pH Sodium Potassium Chloride Carbon Dioxide BUN Creatinine Glucose POC Glucose 223 H 225 H Hemoglobin A1c Lactic Acid Calcium Phosphorus TIBC Transferrin Ferritin AST Total Creatine Kinase Troponin T NT-Pro-B Natriuret Pep Total Protein Albumin Triglycerides Cholesterol LDL Cholesterol Direct Urine Creatinine Urine Microalbumin Urine Chloride Urine Total Protein Crossmatch 04/01/18 04/01/18 04/01/18 16:46 19:47 21:15 WBC RBC Hgb 7.7 L Hct 23.5 L MCV MCH MCHC RDW Plt Count Lymph % (Auto) [place] % (Auto) Lymph # [place] # Seg Neutrophils % Seg Neuts % (Manual) Lymphocytes % (Manual) Monocytes % (Manual) Seg Neutrophils # Lymphocytes # (Manual) Monocytes # (Manual) POC ABG pH POC ABG pCO2 POC ABG pO2 VBG pH Sodium Potassium Chloride Carbon Dioxide BUN Creatinine Glucose POC Glucose 219 H 380 H Hemoglobin A1c Lactic Acid Calcium Phosphorus TIBC Transferrin Ferritin AST Total Creatine Kinase Troponin T NT-Pro-B Natriuret Pep Total Protein Albumin Triglycerides Cholesterol LDL Cholesterol Direct Urine Creatinine Urine Microalbumin Urine Chloride Urine Total Protein Crossmatch 04/02/18 04/02/18 04/02/18 05:47 06:57 07:52 WBC RBC 2.80 L Hgb 7.7 L Hct 23.5 L MCV MCH MCHC RDW Plt Count Lymph % (Auto) [place] % (Auto) Lymph # [place] # Seg Neutrophils % Seg Neuts % (Manual) Lymphocytes % (Manual) Monocytes % (Manual) 25.0 H Seg Neutrophils # Lymphocytes # (Manual) 1.1 L Monocytes # (Manual) 1.3 H POC ABG pH POC ABG pCO2 POC ABG pO2 VBG pH Sodium Potassium Chloride Carbon Dioxide BUN Creatinine Glucose POC Glucose 49 L 111 H Hemoglobin A1c Lactic Acid Calcium Phosphorus TIBC Transferrin Ferritin AST Total Creatine Kinase Troponin T NT-Pro-B Natriuret Pep Total Protein Albumin Triglycerides Cholesterol LDL Cholesterol Direct Urine Creatinine Urine Microalbumin Urine Chloride Urine Total Protein Crossmatch 04/02/18 04/02/18 04/02/18 07:52 12:36 16:36 WBC RBC Hgb Hct MCV MCH MCHC RDW Plt Count Lymph % (Auto) [place] % (Auto) Lymph # [place] # Seg Neutrophils % Seg Neuts % (Manual) Lymphocytes % (Manual) Monocytes % (Manual) Seg Neutrophils # Lymphocytes # (Manual) Monocytes # (Manual) POC ABG pH POC ABG pCO2 POC ABG pO2 VBG pH Sodium Potassium Chloride Carbon Dioxide BUN 28 H Creatinine Glucose 115 H POC Glucose 259 H 297 H Hemoglobin A1c Lactic Acid Calcium 7.3 L Phosphorus TIBC Transferrin Ferritin AST Total Creatine Kinase Troponin T NT-Pro-B Natriuret Pep Total Protein Albumin Triglycerides Cholesterol LDL Cholesterol Direct Urine Creatinine Urine Microalbumin Urine Chloride Urine Total Protein Crossmatch 04/02/18 04/03/18 04/03/18 22:01 04:20 04:46 WBC RBC Hgb Hct MCV MCH MCHC RDW Plt Count Lymph % (Auto) [place] % (Auto) Lymph # [place] # Seg Neutrophils % Seg Neuts % (Manual) Lymphocytes % (Manual) Monocytes % (Manual) Seg Neutrophils # Lymphocytes # (Manual) Monocytes # (Manual) POC ABG pH POC ABG pCO2 POC ABG pO2 VBG pH Sodium Potassium Chloride Carbon Dioxide BUN Creatinine Glucose POC Glucose 206 H < 40 L 64 L Hemoglobin A1c Lactic Acid Calcium Phosphorus TIBC Transferrin Ferritin AST Total Creatine Kinase Troponin T NT-Pro-B Natriuret Pep Total Protein Albumin Triglycerides Cholesterol LDL Cholesterol Direct Urine Creatinine Urine Microalbumin Urine Chloride Urine Total Protein Crossmatch 04/03/18 04/03/18 04/03/18 05:46 05:46 05:57 WBC RBC 2.72 L Hgb 7.6 L Hct 22.4 L MCV 83 L MCH MCHC RDW Plt Count Lymph % (Auto) [place] % (Auto) Lymph # [place] # Seg Neutrophils % Seg Neuts % (Manual) Lymphocytes % (Manual) 13.0 L Monocytes % (Manual) 19.0 H Seg Neutrophils # Lymphocytes # (Manual) 0.9 L Monocytes # (Manual) 1.3 H POC ABG pH POC ABG pCO2 POC ABG pO2 VBG pH Sodium Potassium Chloride 110.7 H Carbon Dioxide BUN 24 H Creatinine Glucose 45 L POC Glucose < 40 L Hemoglobin A1c Lactic Acid Calcium 7.3 L Phosphorus TIBC Transferrin Ferritin AST Total Creatine Kinase Troponin T NT-Pro-B Natriuret Pep Total Protein Albumin Triglycerides Cholesterol LDL Cholesterol Direct Urine Creatinine Urine Microalbumin Urine Chloride Urine Total Protein Crossmatch 04/03/18 04/03/18 04/03/18 07:04 09:17 11:34 WBC RBC Hgb Hct MCV MCH MCHC RDW Plt Count Lymph % (Auto) [place] % (Auto) Lymph # [place] # Seg Neutrophils % Seg Neuts % (Manual) Lymphocytes % (Manual) Monocytes % (Manual) Seg Neutrophils # Lymphocytes # (Manual) Monocytes # (Manual) POC ABG pH POC ABG pCO2 POC ABG pO2 VBG pH Sodium Potassium Chloride Carbon Dioxide BUN Creatinine Glucose POC Glucose 44 L 107 H 196 H Hemoglobin A1c Lactic Acid Calcium Phosphorus TIBC Transferrin Ferritin AST Total Creatine Kinase Troponin T NT-Pro-B Natriuret Pep Total Protein Albumin Triglycerides Cholesterol LDL Cholesterol Direct Urine Creatinine Urine Microalbumin Urine Chloride Urine Total Protein Crossmatch 04/03/18 04/03/18 04/04/18 16:48 20:25 06:05 WBC RBC 2.49 L Hgb 6.9 L Hct 20.8 L MCV 83 L MCH MCHC RDW Plt Count Lymph % (Auto) [place] % (Auto) Lymph # [place] # Seg Neutrophils % Seg Neuts % (Manual) Lymphocytes % (Manual) Monocytes % (Manual) 23.0 H Seg Neutrophils # Lymphocytes # (Manual) 0.7 L Monocytes # (Manual) 1.2 H POC ABG pH POC ABG pCO2 POC ABG pO2 VBG pH Sodium Potassium Chloride Carbon Dioxide BUN Creatinine Glucose POC Glucose 251 H 211 H Hemoglobin A1c Lactic Acid Calcium Phosphorus TIBC Transferrin Ferritin AST Total Creatine Kinase Troponin T NT-Pro-B Natriuret Pep Total Protein Albumin Triglycerides Cholesterol LDL Cholesterol Direct Urine Creatinine Urine Microalbumin Urine Chloride Urine Total Protein Crossmatch 04/04/18 04/04/18 04/04/18 06:05 06:06 20:14 WBC RBC Hgb Hct MCV MCH MCHC RDW Plt Count Lymph % (Auto) [place] % (Auto) Lymph # [place] # Seg Neutrophils % Seg Neuts % (Manual) Lymphocytes % (Manual) Monocytes % (Manual) Seg Neutrophils # Lymphocytes # (Manual) Monocytes # (Manual) POC ABG pH POC ABG pCO2 POC ABG pO2 VBG pH Sodium Potassium Chloride 109.8 H Carbon Dioxide BUN 22 H Creatinine 1.7 H Glucose 260 H POC Glucose 312 H Hemoglobin A1c Lactic Acid Calcium 7.2 L Phosphorus TIBC Transferrin Ferritin AST Total Creatine Kinase Troponin T NT-Pro-B Natriuret Pep Total Protein Albumin Triglycerides Cholesterol LDL Cholesterol Direct Urine Creatinine Urine Microalbumin Urine Chloride Urine Total Protein Crossmatch See Detail 04/04/18 04/05/18 04/05/18 22:23 06:10 06:10 WBC RBC 2.97 L Hgb 8.6 L Hct 25.0 L MCV MCH MCHC RDW Plt Count Lymph % (Auto) [place] % (Auto) 15.9 H Lymph # [place] # 1.2 H Seg Neutrophils % Seg Neuts % (Manual) Lymphocytes % (Manual) Monocytes % (Manual) Seg Neutrophils # Lymphocytes # (Manual) Monocytes # (Manual) POC ABG pH POC ABG pCO2 POC ABG pO2 VBG pH Sodium Potassium Chloride 108.4 H Carbon Dioxide 20 L BUN Creatinine 1.9 H Glucose 42 L POC Glucose 116 H Hemoglobin A1c Lactic Acid Calcium 7.3 L Phosphorus TIBC Transferrin Ferritin AST Total Creatine Kinase Troponin T NT-Pro-B Natriuret Pep Total Protein 5.7 L Albumin 2.3 L Triglycerides Cholesterol LDL Cholesterol Direct Urine Creatinine Urine Microalbumin Urine Chloride Urine Total Protein Crossmatch 04/05/18 04/05/18 04/05/18 06:18 06:20 12:17 WBC RBC Hgb Hct MCV MCH MCHC RDW Plt Count Lymph % (Auto) [place] % (Auto) Lymph # [place] # Seg Neutrophils % Seg Neuts % (Manual) Lymphocytes % (Manual) Monocytes % (Manual) Seg Neutrophils # Lymphocytes # (Manual) Monocytes # (Manual) POC ABG pH POC ABG pCO2 POC ABG pO2 VBG pH Sodium Potassium Chloride Carbon Dioxide BUN Creatinine Glucose POC Glucose 44 L 123 H Hemoglobin A1c Lactic Acid Calcium Phosphorus TIBC Transferrin Ferritin AST Total Creatine Kinase Troponin T NT-Pro-B Natriuret Pep Total Protein Albumin Triglycerides Cholesterol LDL Cholesterol Direct Urine Creatinine 112.0 H Urine Microalbumin Urine Chloride Urine Total Protein Crossmatch 04/05/18 04/05/18 04/06/18 16:33 21:29 07:06 WBC RBC Hgb Hct MCV MCH MCHC RDW Plt Count Lymph % (Auto) [place] % (Auto) Lymph # [place] # Seg Neutrophils % Seg Neuts % (Manual) Lymphocytes % (Manual) Monocytes % (Manual) Seg Neutrophils # Lymphocytes # (Manual) Monocytes # (Manual) POC ABG pH POC ABG pCO2 POC ABG pO2 VBG pH Sodium Potassium Chloride Carbon Dioxide BUN Creatinine Glucose POC Glucose 268 H 207 H 42 L Hemoglobin A1c Lactic Acid Calcium Phosphorus TIBC Transferrin Ferritin AST Total Creatine Kinase Troponin T NT-Pro-B Natriuret Pep Total Protein Albumin Triglycerides Cholesterol LDL Cholesterol Direct Urine Creatinine Urine Microalbumin Urine Chloride Urine Total Protein Crossmatch 04/06/18 04/06/18 04/06/18 11:54 16:40 21:14 WBC RBC Hgb Hct MCV MCH MCHC RDW Plt Count Lymph % (Auto) [place] % (Auto) Lymph # [place] # Seg Neutrophils % Seg Neuts % (Manual) Lymphocytes % (Manual) Monocytes % (Manual) Seg Neutrophils # Lymphocytes # (Manual) Monocytes # (Manual) POC ABG pH POC ABG pCO2 POC ABG pO2 VBG pH Sodium Potassium Chloride Carbon Dioxide BUN Creatinine Glucose POC Glucose 177 H 188 H 336 H Hemoglobin A1c Lactic Acid Calcium Phosphorus TIBC Transferrin Ferritin AST Total Creatine Kinase Troponin T NT-Pro-B Natriuret Pep Total Protein Albumin Triglycerides Cholesterol LDL Cholesterol Direct Urine Creatinine Urine Microalbumin Urine Chloride Urine Total Protein Crossmatch 04/07/18 04/07/18 04/07/18 05:46 05:46 05:46 WBC RBC 2.92 L Hgb 8.2 L Hct 25.0 L MCV MCH MCHC RDW Plt Count Lymph % (Auto) [place] % (Auto) 12.9 H Lymph # 1.1 L [place] # Seg Neutrophils % Seg Neuts % (Manual) Lymphocytes % (Manual) Monocytes % (Manual) Seg Neutrophils # Lymphocytes # (Manual) Monocytes # (Manual) POC ABG pH POC ABG pCO2 POC ABG pO2 VBG pH Sodium 131 L D Potassium Chloride 96.6 L Carbon Dioxide 19 L BUN 26 H Creatinine 2.7 H Glucose 247 H POC Glucose Hemoglobin A1c Lactic Acid Calcium 7.7 L Phosphorus TIBC Transferrin Ferritin AST Total Creatine Kinase Troponin T NT-Pro-B Natriuret Pep 1858 H Total Protein Albumin Triglycerides Cholesterol LDL Cholesterol Direct Urine Creatinine Urine Microalbumin Urine Chloride Urine Total Protein Crossmatch 04/07/18 04/07/18 04/07/18 06:00 11:31 14:00 WBC RBC Hgb Hct MCV MCH MCHC RDW Plt Count Lymph % (Auto) [place] % (Auto) Lymph # [place] # Seg Neutrophils % Seg Neuts % (Manual) Lymphocytes % (Manual) Monocytes % (Manual) Seg Neutrophils # Lymphocytes # (Manual) Monocytes # (Manual) POC ABG pH POC ABG pCO2 POC ABG pO2 VBG pH Sodium Potassium Chloride Carbon Dioxide BUN Creatinine Glucose POC Glucose 288 H 373 H Hemoglobin A1c Lactic Acid Calcium Phosphorus TIBC Transferrin Ferritin AST Total Creatine Kinase Troponin T NT-Pro-B Natriuret Pep Total Protein Albumin Triglycerides Cholesterol LDL Cholesterol Direct Urine Creatinine 76.8 H Urine Microalbumin Urine Chloride 91.4 L Urine Total Protein Crossmatch 04/07/18 04/07/18 04/07/18 16:12 18:32 22:00 WBC RBC Hgb Hct MCV MCH MCHC RDW Plt Count Lymph % (Auto) [place] % (Auto) Lymph # [place] # Seg Neutrophils % Seg Neuts % (Manual) Lymphocytes % (Manual) Monocytes % (Manual) Seg Neutrophils # Lymphocytes # (Manual) Monocytes # (Manual) POC ABG pH POC ABG pCO2 POC ABG pO2 VBG pH Sodium Potassium Chloride Carbon Dioxide BUN Creatinine Glucose POC Glucose 280 H 269 H 145 H Hemoglobin A1c Lactic Acid Calcium Phosphorus TIBC Transferrin Ferritin AST Total Creatine Kinase Troponin T NT-Pro-B Natriuret Pep Total Protein Albumin Triglycerides Cholesterol LDL Cholesterol Direct Urine Creatinine Urine Microalbumin Urine Chloride Urine Total Protein Crossmatch 04/08/18 04/08/18 04/08/18 05:38 05:38 06:08 WBC RBC 2.76 L Hgb 7.8 L Hct 23.7 L MCV MCH MCHC RDW Plt Count Lymph % (Auto) [place] % (Auto) 14.7 H Lymph # [place] # 0.9 H Seg Neutrophils % Seg Neuts % (Manual) Lymphocytes % (Manual) Monocytes % (Manual) Seg Neutrophils # Lymphocytes # (Manual) Monocytes # (Manual) POC ABG pH POC ABG pCO2 POC ABG pO2 VBG pH Sodium 146 H D Potassium Chloride 113.3 H Carbon Dioxide 21 L BUN 28 H Creatinine 3.2 H Glucose 113 H POC Glucose 119 H Hemoglobin A1c Lactic Acid Calcium 8.0 L Phosphorus TIBC Transferrin Ferritin AST Total Creatine Kinase Troponin T NT-Pro-B Natriuret Pep Total Protein 6.0 L Albumin 2.9 L Triglycerides Cholesterol LDL Cholesterol Direct Urine Creatinine Urine Microalbumin Urine Chloride Urine Total Protein Crossmatch 04/08/18 04/08/18 04/08/18 12:00 17:07 17:30 WBC RBC Hgb Hct MCV MCH MCHC RDW Plt Count Lymph % (Auto) [place] % (Auto) Lymph # [place] # Seg Neutrophils % Seg Neuts % (Manual) Lymphocytes % (Manual) Monocytes % (Manual) Seg Neutrophils # Lymphocytes # (Manual) Monocytes # (Manual) POC ABG pH POC ABG pCO2 POC ABG pO2 VBG pH Sodium Potassium Chloride Carbon Dioxide BUN Creatinine Glucose POC Glucose 232 H 230 H Hemoglobin A1c Lactic Acid Calcium Phosphorus TIBC Transferrin Ferritin AST Total Creatine Kinase Troponin T NT-Pro-B Natriuret Pep Total Protein Albumin Triglycerides Cholesterol LDL Cholesterol Direct Urine Creatinine 63.0 H Urine Microalbumin 206.9 H Urine Chloride Urine Total Protein 288 H Crossmatch 04/08/18 04/09/18 04/09/18 21:06 06:47 10:08 WBC RBC Hgb Hct MCV MCH MCHC RDW Plt Count Lymph % (Auto) [place] % (Auto) Lymph # [place] # Seg Neutrophils % Seg Neuts % (Manual) Lymphocytes % (Manual) Monocytes % (Manual) Seg Neutrophils # Lymphocytes # (Manual) Monocytes # (Manual) POC ABG pH POC ABG pCO2 POC ABG pO2 VBG pH Sodium Potassium Chloride 107.9 H Carbon Dioxide 21 L BUN 29 H Creatinine 3.1 H Glucose POC Glucose 243 H 54 L Hemoglobin A1c Lactic Acid Calcium 7.9 L Phosphorus TIBC Transferrin Ferritin AST Total Creatine Kinase Troponin T NT-Pro-B Natriuret Pep Total Protein Albumin Triglycerides Cholesterol LDL Cholesterol Direct Urine Creatinine Urine Microalbumin Urine Chloride Urine Total Protein Crossmatch 04/09/18 04/09/18 12:11 16:25 WBC RBC Hgb Hct MCV MCH MCHC RDW Plt Count Lymph % (Auto) [place] % (Auto) Lymph # [place] # Seg Neutrophils % Seg Neuts % (Manual) Lymphocytes % (Manual) Monocytes % (Manual) Seg Neutrophils # Lymphocytes # (Manual) Monocytes # (Manual) POC ABG pH POC ABG pCO2 POC ABG pO2 VBG pH Sodium Potassium Chloride Carbon Dioxide BUN Creatinine Glucose POC Glucose 108 H 235 H Hemoglobin A1c Lactic Acid Calcium Phosphorus TIBC Transferrin Ferritin AST Total Creatine Kinase Troponin T NT-Pro-B Natriuret Pep Total Protein Albumin Triglycerides Cholesterol LDL Cholesterol Direct Urine Creatinine Urine Microalbumin Urine Chloride Urine Total Protein Crossmatch Allied health notes reviewed: nursing
[2018-04-10] MEDS: ZOSYN/NS 2.25 GM/50ML 2.25 GM/50 ML BAG IV SCH ×5 (01:05→23:14)
[2018-04-10] MEDS: APRESOLINE PO SCH ×3 (06:55→23:15)
[2018-04-10] MEDS: CATAPRES PO SCH ×3 (09:35→20:01)
[2018-04-10] MEDS: COREG PO SCH ×2 (09:35→23:14)
[2018-04-10] MEDS: PEPCID PO SCH ×2 (09:35→23:15)
[2018-04-10] MEDS: BABY ASPIRIN PO SCH (09:35)
[2018-04-10] MEDS: PROzac PO SCH (09:35)
[2018-04-10] MEDS: LOVENOX SUB-Q SCH (09:35)
[2018-04-10] MEDS: MINIPRESS PO SCH ×2 (09:35→23:16)
[2018-04-10] MEDS: SODIUM CHLORIDE FLUSH SYRINGE 10 ML IV SCH ×2 (09:36→23:16)
[2018-04-10] MEDS: HumuLIN R SUB-Q SCH ×4 (09:36→23:15)
[2018-04-10 09:59] LABS: Calcium 7.9 mg/dL (8.4-10.2)
--- NOTE | 2018-04-10 11:12 | Progress Note ---
Assessment and Plan Assessment and plan: --Malignant Hypertension;moderate control Continue current antihypertensives, clonidine, hydralazine , Coreg , Lasix and when necessary medications --Type 2 diabetes mellitus ;Labile blood sugars; patient noncompliant with diet , hb A1c 8.9 Accu-Chek sliding scale coverage and ADA diet increase 7030 insulin to 20 units twice a day --DKA (diabetic ketoacidoses); resolved Uncontrolled blood sugars, non-complaint, Accu-Cheks, insulin, ADA diet --anemia; s/p 2 units of PRBC, HB 8.6-7.8 stool guaiac-negative, GI evaluated ,out patient workup, --Bilateral upper extremity superficial venous thrombosis/cellulitis Vascular evaluated, supportive care --cellulitis upper extremities and blisters, Elevate the limb, empiric antibiotics, cultures negative, wound care, significantly improved ,LE venous Doppler negative for DVT. --Acute respiratory failure; intubated ,s/p extubation 03/28/18 saturating well on nasal cannula oxygen, evaluation for home oxygen and discharge --BELKIS (acute kidney injury)secondary to severe dehydration Due to ATN, worsening of renal Function, nephrology following. Worsening renal function possibly due to overdiuresis, AIN from antibiotics/vancomycin, check protein/cr ratio, may require secondary GN/vasculitis work up, urine analysis on 04/05/18 showed small amount of blood, >500 mg/dl protein. --Severe hypoalbuminemia; severe malnutrition Nutrition consults, albumin infusions, supportive care --Depression; consult psych, patient denies suicidal thoughts or ideation --DVT prophylaxis ; Lovenox renal dose Plan of care reviewed with the patient and his nurse Closely monitor blood sugars Disposition; closely monitor blood sugars and blood pressures Monitor hemoglobin and hematocrit and renal function Physical therapy recommended home health PT May DC in 1-2 days stable History Interval history: No new issues overnight Hospitalist Physical - Constitutional Vitals: Temp Pulse Resp BP Pulse Ox 98.9 F 67 18 186/84 92 04/10/18 07:15 04/10/18 07:15 04/10/18 07:15 04/10/18 07:15 04/10/18 07:15 General appearance: Present: no acute distress, well-nourished, obese - EENT Eyes: Present: PERRL, EOM intact ENT: hearing intact, clear oral mucosa, dentition normal - Neck Neck: Present: supple, normal ROM - Respiratory Respiratory effort: normal Respiratory: bilateral: CTA - Cardiovascular Rhythm: regular Heart Sounds: Present: S1 & S2. Absent: gallop, rub - Extremities Extremities: no ischemia, No edema, Full ROM - Abdominal General gastrointestinal: soft, non-tender, non-distended, normal bowel sounds - Integumentary Integumentary: Present: clear, warm, dry - Neurologic Neurologic: CNII-XII intact, moves all extremities Results - Labs CBC & Chem 7: 04/08/18 05:38 04/10/18 09:05 Labs: Laboratory Last Values WBC 5.9 K/mm3 (4.5-11.0) 04/08/18 05:38 RBC 2.76 M/mm3 (3.65-5.03) L 04/08/18 05:38 Hgb 7.8 gm/dl (11.8-15.2) L 04/08/18 05:38 Hct 23.7 % (35.5-45.6) L 04/08/18 05:38 MCV 86 fl (84-94) 04/08/18 05:38 MCH 28 pg (28-32) 04/08/18 05:38 MCHC 33 % (32-34) 04/08/18 05:38 RDW 14.6 % (13.2-15.2) 04/08/18 05:38 Plt Count 402 K/mm3 (140-440) 04/08/18 05:38 Lymph % (Auto) 20.3 % (13.4-35.0) 04/08/18 05:38 [place] % (Auto) 14.7 % (0.0-7.3) H 04/08/18 05:38 Eos % (Auto) 3.0 % (0.0-4.3) 04/08/18 05:38 Baso % (Auto) 1.0 % (0.0-1.8) 04/08/18 05:38 Lymph # 1.2 K/mm3 (1.2-5.4) 04/08/18 05:38 [place] # 0.9 K/mm3 (0.0-0.8) H 04/08/18 05:38 Eos # 0.2 K/mm3 (0.0-0.4) 04/08/18 05:38 Baso # 0.1 K/mm3 (0.0-0.1) 04/08/18 05:38 Add Manual Diff Complete 04/04/18 06:05 Total Counted 100 04/04/18 06:05 Seg Neutrophils % 61.0 % (40.0-70.0) 04/08/18 05:38 Seg Neuts % (Manual) 55.0 % (40.0-70.0) 04/04/18 06:05 Band Neutrophils % 2.0 % 04/04/18 06:05 Lymphocytes % (Manual) 14.0 % (13.4-35.0) 04/04/18 06:05 Reactive Lymphs % (Man) 0 % 04/04/18 06:05 Monocytes % (Manual) 23.0 % (0.0-7.3) H 04/04/18 06:05 Eosinophils % (Manual) 4.0 % (0.0-4.3) 04/04/18 06:05 Basophils % (Manual) 0 % (0.0-1.8) 04/04/18 06:05 Metamyelocytes % 2.0 % 04/04/18 06:05 Myelocytes % 0 % 04/04/18 06:05 Promyelocytes % 0 % 04/04/18 06:05 Blast Cells % 0 % 04/04/18 06:05 Nucleated RBC % Not Reportable 04/04/18 06:05 Seg Neutrophils # 3.6 K/mm3 (1.8-7.7) 04/08/18 05:38 Seg Neutrophils # Man 2.9 K/mm3 (1.8-7.7) 04/04/18 06:05 Band Neutrophils # 0.1 K/mm3 04/04/18 06:05 Lymphocytes # (Manual) 0.7 K/mm3 (1.2-5.4) L 04/04/18 06:05 Abs React Lymphs (Man) 0.0 K/mm3 04/04/18 06:05 Monocytes # (Manual) 1.2 K/mm3 (0.0-0.8) H 04/04/18 06:05 Eosinophils # (Manual) 0.2 K/mm3 (0.0-0.4) 04/04/18 06:05 Basophils # (Manual) 0.0 K/mm3 (0.0-0.1) 04/04/18 06:05 Metamyelocytes # 0.1 K/mm3 04/04/18 06:05 Myelocytes # 0.0 K/mm3 04/04/18 06:05 Promyelocytes # 0.0 K/mm3 04/04/18 06:05 Blast Cells # 0.0 K/mm3 04/04/18 06:05 WBC Morphology Not Reportable 04/04/18 06:05 Hypersegmented Neuts Not Reportable 04/04/18 06:05 Hyposegmented Neuts Not Reportable 04/04/18 06:05 Hypogranular Neuts Not Reportable 04/04/18 06:05 Smudge Cells Not Reportable 04/04/18 06:05 Toxic Granulation Not Reportable 04/04/18 06:05 Toxic Vacuolation Not Reportable 04/04/18 06:05 Dohle Bodies Not Reportable 04/04/18 06:05 Pelger-Huet Anomaly Not Reportable 04/04/18 06:05 Loi Rods Not Reportable 04/04/18 06:05 Platelet Estimate Appears normal 04/04/18 06:05 Clumped Platelets Not Reportable 04/04/18 06:05 Plt Clumps, EDTA Not Reportable 04/04/18 06:05 Large Platelets Not Reportable 04/04/18 06:05 Giant Platelets Not Reportable 04/04/18 06:05 Platelet Satelliting Not Reportable 04/04/18 06:05 Plt Morphology Comment Not Reportable 04/04/18 06:05 RBC Morphology Not Reportable 04/04/18 06:05 Dimorphic RBCs Not Reportable 04/04/18 06:05 Polychromasia Not Reportable 04/04/18 06:05 Hypochromasia Few 04/04/18 06:05 Poikilocytosis Not Reportable 04/04/18 06:05 Anisocytosis 1+ 04/04/18 06:05 Microcytosis Not Reportable 04/04/18 06:05 Macrocytosis Not Reportable 04/04/18 06:05 Spherocytes Not Reportable 04/04/18 06:05 Pappenheimer Bodies Not Reportable 04/04/18 06:05 Sickle Cells Not Reportable 04/04/18 06:05 Target Cells Not Reportable 04/04/18 06:05 Tear Drop Cells Not Reportable 04/04/18 06:05 Ovalocytes Not Reportable 04/04/18 06:05 Helmet Cells Not Reportable 04/04/18 06:05 [place] Bodies Not Reportable 04/04/18 06:05 [place] Rings Not Reportable 04/04/18 06:05 [place]iki Cells Not Reportable 04/04/18 06:05 Bite Cells Not Reportable 04/04/18 06:05 Crenated Cell Not Reportable 04/04/18 06:05 Elliptocytes Not Reportable 04/04/18 06:05 Acanthocytes (Spur) Not Reportable 04/04/18 06:05 Rouleaux Not Reportable 04/04/18 06:05 Hemoglobin C Crystals Not Reportable 04/04/18 06:05 Schistocytes Not Reportable 04/04/18 06:05 Malaria parasites Not Reportable 04/04/18 06:05 Lev Bodies Not Reportable 04/04/18 06:05 Hem Pathologist Commnt No 04/04/18 06:05 POC ABG pH 7.405 (7.35-7.45) 03/28/18 03:49 POC ABG pCO2 38.6 (35-45) 03/28/18 03:49 POC ABG pO2 102 (80-105) 03/28/18 03:49 POC ABG HCO3 24.2 03/28/18 03:49 POC ABG Total CO2 25 03/28/18 03:49 POC ABG O2 Sat 98 03/28/18 03:49 POC ABG Base Excess 0 03/28/18 03:49 VBG pH 7.000 (7.320-7.420) L* 03/25/18 14:41 FiO2 25 % 03/28/18 03:49 Sodium 139 mmol/L (137-145) 04/10/18 09:05 Potassium 4.7 mmol/L (3.6-5.0) 04/10/18 09:05 Chloride 103.9 mmol/L (98-107) 04/10/18 09:05 Carbon Dioxide 20 mmol/L (22-30) L 04/10/18 09:05 Anion Gap 20 mmol/L 04/10/18 09:05 BUN 31 mg/dL (9-20) H 04/10/18 09:05 Creatinine 3.1 mg/dL (0.8-1.5) H 04/10/18 09:05 Estimated GFR 26 ml/min 04/10/18 09:05 BUN/Creatinine Ratio 10 % 04/10/18 09:05 Glucose 145 mg/dL (75-100) H 04/10/18 09:05 POC Glucose 112 (70-105) H 04/10/18 06:33 Hemoglobin A1c 8.9 % (4-6) H 03/25/18 18:55 Lactic Acid 1.80 mmol/L (0.7-2.0) 03/26/18 04:25 Calcium 7.9 mg/dL (8.4-10.2) L 04/10/18 09:05 Phosphorus 4.30 mg/dL (2.5-4.5) 04/10/18 09:05 Magnesium 2.00 mg/dL (1.7-2.3) 04/08/18 05:38 Iron 54 ug/dL (49-181) 03/28/18 04:35 TIBC 115 mcg/dL (250-450) L 03/28/18 04:35 Transferrin 94 mg/dl (180-329) L 03/28/18 04:35 Ferritin 412.1 ng/mL (13.0-400.0) H 03/28/18 04:35 Total Bilirubin 0.40 mg/dL (0.1-1.2) 04/08/18 05:38 Direct Bilirubin < 0.2 mg/dL (0-0.2) 03/25/18 14:08 Indirect Bilirubin 0.1 mg/dL 03/25/18 14:08 AST 20 units/L (5-40) 04/08/18 05:38 ALT 17 units/L (7-56) 04/08/18 05:38 Alkaline Phosphatase 75 units/L (35-129) 04/08/18 05:38 Total Creatine Kinase 226 units/L (55-170) H 03/25/18 18:09 CK-MB (CK-2) 3.7 ng/mL (0.0-4.0) 03/25/18 18:09 CK-MB (CK-2) Rel Index 1.6 (0-4) 03/25/18 18:09 Troponin T 0.033 ng/mL (0.00-0.029) H 03/25/18 18:09 NT-Pro-B Natriuret Pep 1858 pg/mL (0-900) H 04/07/18 05:46 Total Protein 6.0 g/dL (6.3-8.2) L 04/08/18 05:38 Albumin 2.9 g/dL (3.9-5) L 04/08/18 05:38 Albumin/Globulin Ratio 0.9 % 04/08/18 05:38 Triglycerides 185 mg/dL (2-149) H 03/25/18 18:09 Cholesterol 215 mg/dL (50-199) H 03/25/18 18:09 LDL Cholesterol Direct 144 mg/dL (50-130) H 03/25/18 18:09 HDL Cholesterol 48 mg/dL (40-59) 03/25/18 18:09 Cholesterol/HDL Ratio 4.47 % 03/25/18 18:09 Urine Color Yellow (Yellow) 04/08/18 17:30 Urine Turbidity Clear (Clear) 04/08/18 17:30 Urine pH 5.0 (5.0-7.0) 04/08/18 17:30 Ur Specific [place] 1.011 (1.003-1.030) 04/08/18 17:30 Urine Protein 100 mg/dl mg/dL (Negative) 04/08/18 17:30 Urine Glucose (UA) Neg mg/dL (Negative) 04/08/18 17:30 Urine Ketones Neg mg/dL (Negative) 04/08/18 17:30 Urine Blood Sm (Negative) 04/08/18 17:30 Urine Nitrite Neg (Negative) 04/08/18 17:30 Urine Bilirubin Neg (Negative) 04/08/18 17:30 Urine Urobilinogen < 2.0 mg/dL (<2.0) 04/08/18 17:30 Ur Leukocyte Esterase Neg (Negative) 04/08/18 17:30 Urine WBC (Auto) < 1.0 /HPF (0.0-6.0) 04/08/18 17:30 Urine RBC (Auto) 4.0 /HPF (0.0-6.0) 04/08/18 17:30 Urine Bacteria (Auto) 1+ /HPF (Negative) 04/08/18 17:30 Uric Acid Crystals 2+ 04/05/18 06:18 Hyaline Casts 1 /LPF 04/08/18 17:30 Urine Mucus Few /HPF 04/08/18 17:30 Urine Yeast (Budding) 1+ /HPF 04/05/18 06:18 Urine Eosinophils None seen (None Seen) 04/07/18 14:00 Urine Creatinine 63.0 mg/dL (0.1-20.0) H 04/08/18 17:30 Urine Microalbumin 206.9 mg/dL (0.1-34.0) H 04/08/18 17:30 Microalb/Creat Ratio 3284.1 ug/mg 04/08/18 17:30 Protein/Creatinin Ratio 4.57 04/08/18 17:30 Urine Sodium 94 mmol/L 04/07/18 14:00 Urine Chloride 91.4 mmolL (110-250) L 04/07/18 14:00 Urine Urea Nitrogen 215 04/07/18 14:00 Urine Total Protein 288 mg/dL (5-11.8) H 04/08/18 17:30 Random Vancomycin 8.9 ug/mL (0-40.0) 04/10/18 09:05 Urine Opiates Screen Presumptive negative 03/25/18 14:19 Urine Methadone Screen Presumptive negative 03/25/18 14:19 Ur Barbiturates Screen Presumptive negative 03/25/18 14:19 Ur Phencyclidine Scrn Presumptive negative 03/25/18 14:19 Ur Amphetamines Screen Presumptive negative 03/25/18 14:19 U Benzodiazepines Scrn Presumptive negative 03/25/18 14:19 Urine Cocaine Screen Presumptive negative 03/25/18 14:19 U Marijuana (THC) Screen Presumptive negative 03/25/18 14:19 Drugs of Abuse Note Disclamer 03/25/18 14:19 Blood Type O POSITIVE 04/04/18 20:14 Antibody Screen Negative 04/04/18 20:14 Crossmatch See Detail 04/04/18 20:14
[2018-04-10 11:47] LABS: Basophils # (Auto) 0.1 K/mm3 (0.0-0.1); Basophils % (Auto) 1.3 % (0.0-1.8); Eosinophils # (Auto) 0.2 K/mm3 (0.0-0.4); Eosinophils % (Auto) 3.6 % (0.0-4.3); Hematocrit 25.7 % (35.5-45.6); Hemoglobin 8.4 gm/dl (11.8-15.2); Lymphocytes # (Auto) 0.9 K/mm3 (1.2-5.4); Lymphocytes % (Auto) 16.2 % (13.4-35.0); Mean Corpuscular HGB Conc 33 % (32-34); Mean Corpuscular Hemoglobin 28 pg (28-32); Mean Corpuscular Volume 87 fl (84-94); Monocytes # (Auto) 0.7 K/mm3 (0.0-0.8); Monocytes % (Auto) 13.4 % (0.0-7.3); Platelet Count 389 K/mm3 (140-440); Red Blood Count 2.96 M/mm3 (3.65-5.03); Red Cell Distribution Width 14.6 % (13.2-15.2)
[2018-04-10] MEDS ORDERED: VANCOMYCIN 1,250 MG in NACL 0.9% 250ML 250 ML IV ONE (12:00)
--- NOTE | 2018-04-10 15:53 | Progress Note ---
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: Volume Overload: Hypoalbuminemia: -Renal function reviewed, SCr level was 3.1 today, yesterday's SCr level was 3.1 -Calculated protein/cr ratio ~ 4.5 g, obtain secondary GN/vasculitis work up -Check AZALEA, ANCA, Anti-GBM, DsDNA Ab, SPEP, UPEP, Hepatitis panel, HIV, ASO, anti-de santiago, C3, C4, CH50, immunofixation, free kappa/lambda light chains -Pro-BNP was 1858 on 04/07/18 -S/p Renal US on 04/07/18 showed large postvoid residual of 113 ml, echogenic kidneys consistent with nonspecific renal parenchymal disease -Check postvoid residual bladder scan -Lasix currently on hold, although may need to restart, f/u bladder scan results , may need valentino catheter -Urine eosinophils absent, although doesn't r/o AIN -S/p CXR on 04/06/18 showed increased bilateral reticular interstitial opacities. No consolidating pneumonia, suspect small pleural effusion or pleural effusions -Renally dose meds -Strict intake and output -S/p Albumin 25 g IVPB every 8 hours x 6 doses -Obtain daily weight -Valentino Catheter: No -Intake= 1510 ml Output= 300 ml ( Net= 1210 ml) -Renal plan d/w Dr Adrian -Continue supportive therapy Acute Respiratory Failure: -Extubated -Pulmonology on board Essential Hypertension: -On clonidine, coreg, hydralazine, and minipress -Started on Minipress -Adjust medications as needed DKA: -Resolved Subjective Date of service: 04/10/18 Principal diagnosis: Acute hypoxic respiratory failure, DKA, BELKIS, Acute encephalopathy Interval history: Pt reports feeling tired, denies shortness of breath, continues to have bilateral leg swelling, states less urine output, no acute distress, no family at bedside Objective - Vital Signs Vital signs: Vital Signs - 12hr 04/10/18 07:15 Temperature 98.9 F Pulse Rate 67 Respiratory 18 Rate Blood Pressure 186/84 O2 Sat by Pulse 92 Oximetry - General Appearance General appearance: well-developed (no acute distress) EENT: ATNC Neck: no JVD Respiratory: Present: Other (Lung sounds decreased bilaterally, unlabored) Cardiology: regular, S1S2 Gastrointestinal: normoactive bowel sounds, no tenderness Integumentary: warm and dry Neurologic: alert and oriented x3 Musculoskeletal: other (2+ edema to both lower extremities) Psychiatric: cooperative - Lab 04/10/18 11:12 04/10/18 09:05 Most recent lab results Calcium 7.9 mg/dL (8.4-10.2) L 04/10/18 09:05 Phosphorus 4.30 mg/dL (2.5-4.5) 04/10/18 09:05 Magnesium 2.00 mg/dL (1.7-2.3) 04/08/18 05:38 Urine Creatinine 63.0 mg/dL (0.1-20.0) H 04/08/18 17:30 Urine Sodium 94 mmol/L 04/07/18 14:00 Urine Total Protein 288 mg/dL (5-11.8) H 04/08/18 17:30
[2018-04-10 18:34] LABS: Hepatitis A Antibody IgM Non-Reactive (NonReactive); Hepatitis B Core IgM Non-Reactive (NonReactive); Hepatitis B Surface Antigen Non-Reactive (Negative); Hepatitis C Virus Antibody Non-Reactive (NonReactive)
[2018-04-10] MEDS: D50W (25GM) Syringe IV PRN (21:30)
[2018-04-11 05:42] LABS: Basophils % (Auto) 0.7 % (0.0-1.8); Eosinophils # (Auto) 0.2 K/mm3 (0.0-0.4); Eosinophils % (Auto) 2.9 % (0.0-4.3); Hematocrit 25.1 % (35.5-45.6); Hemoglobin 8.1 gm/dl (11.8-15.2); Lymphocytes # (Auto) 0.9 K/mm3 (1.2-5.4); Lymphocytes % (Auto) 15.9 % (13.4-35.0); Mean Corpuscular HGB Conc 32 % (32-34); Mean Corpuscular Hemoglobin 28 pg (28-32); Mean Corpuscular Volume 86 fl (84-94); Monocytes # (Auto) 0.8 K/mm3 (0.0-0.8); Monocytes % (Auto) 13.5 % (0.0-7.3); Platelet Count 369 K/mm3 (140-440); Red Blood Count 2.93 M/mm3 (3.65-5.03); Red Cell Distribution Width 14.3 % (13.2-15.2)
[2018-04-11] MEDS: APRESOLINE PO SCH ×3 (06:02→21:52)
[2018-04-11 06:04] LABS: Calcium 7.5 mg/dL (8.4-10.2)
[2018-04-11] MEDS: ZOSYN/NS 2.25 GM/50ML 2.25 GM/50 ML BAG IV SCH ×3 (06:04→18:40)
[2018-04-11] MEDS: CATAPRES PO SCH ×3 (08:55→21:50)
[2018-04-11] MEDS: HumuLIN R SUB-Q SCH ×3 (09:06→18:45)
--- NOTE | 2018-04-11 09:11 | Progress Note ---
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: Volume Overload: Hypoalbuminemia: -stable Cr and BUN -Calculated protein/cr ratio ~ 4.5 g, secondary GN/vasculitis work up is pending -Check AZALEA, ANCA, Anti-GBM, DsDNA Ab, SPEP, UPEP, Hepatitis panel, HIV, ASO, anti-de santiago, C3, C4, CH50, immunofixation, free kappa/lambda light chains - will restart lasix 40 mg qday -Renally dose meds -Strict intake and output -S/p Albumin 25 g IVPB every 8 hours x 6 doses -Obtain daily weight -Beard Catheter: No Acute Respiratory Failure: -Extubated -Pulmonology on board Essential Hypertension: -Adjust medications as needed - adding lasix as above DKA: -Resolved Subjective Date of service: 04/11/18 Principal diagnosis: Acute hypoxic respiratory failure, DKA, BELKIS, Acute encephalopathy Interval history: c/o swelling in legs Objective - Vital Signs Vital signs: Vital Signs - 12hr 04/10/18 04/10/18 04/10/18 23:14 23:15 23:16 Temperature Pulse Rate 65 65 65 Respiratory Rate Blood Pressure 204/93 204/93 204/93 O2 Sat by Pulse Oximetry 04/11/18 04/11/18 04/11/18 06:02 07:26 08:55 Temperature 99.0 F Pulse Rate 78 90 Respiratory 19 Rate Blood Pressure 184/84 193/85 193/85 O2 Sat by Pulse 93 Oximetry - General Appearance General appearance: well-developed, well-nourished, appears stated age EENT: ATNC, PERRL, mucous membranes moist Neck: no JVD, no carotid bruit Respiratory: Present: Clear to Ascultation. Absent: Rales, Ronchi Cardiology: regular, S1S2 Gastrointestinal: normoactive bowel sounds, no tenderness, no distended Integumentary: no rash, warm and dry Neurologic: no focal deficit, no asterixis, alert and oriented x3 Musculoskeletal: other (1+ pitting edema in BLE) Psychiatric: mood/affect appropriate, cooperative - Lab 04/11/18 05:20 04/11/18 05:20 Most recent lab results Calcium 7.5 mg/dL (8.4-10.2) L 04/11/18 05:20 Phosphorus 3.60 mg/dL (2.5-4.5) 04/11/18 05:20 Magnesium 2.00 mg/dL (1.7-2.3) 04/08/18 05:38 Urine Creatinine 63.0 mg/dL (0.1-20.0) H 04/08/18 17:30 Urine Sodium 94 mmol/L 04/07/18 14:00 Urine Total Protein 288 mg/dL (5-11.8) H 04/08/18 17:30
--- NOTE | 2018-04-11 09:59 | Progress Note ---
Assessment and Plan Assessment and plan: --BLEKIS (acute kidney injury)secondary to prerenal azotemia versus ischemic ATN Due to ATN. However, patient may have some underlying CKD. Check AZALEA, ANCA, Anti-GBM, DsDNA Ab, SPEP, UPEP, Hepatitis panel, HIV, ASO, anti -de [place], C3, C4, CH50, immunofixation, free kappa/lambda light chains Continue lasix 40 mg qday per nephrology Renally dose meds Strict intake and output S/p Albumin 25 g IVPB every 8 hours x 6 doses Obtain daily weight --Malignant Hypertension;moderate control Continue current antihypertensives, clonidine, hydralazine , Coreg , Lasix and when necessary medications --Type 2 diabetes mellitus ;Labile blood sugars; patient noncompliant with diet , hb A1c 8.9 Accu-Chek sliding scale coverage and ADA diet increase 7030 insulin to 20 units twice a day --DKA (diabetic ketoacidoses); resolved Uncontrolled blood sugars, non-complaint, Accu-Cheks, insulin, ADA diet --anemia; s/p 2 units of PRBC, H&H is stable. stool guaiac-negative, GI evaluated ,out patient workup, --Bilateral upper extremity superficial venous thrombosis/cellulitis Vascular evaluated, supportive care --cellulitis upper extremities and blisters, Elevate the limb, empiric antibiotics, cultures negative, wound care, significantly improved ,LE venous Doppler negative for DVT. --Acute respiratory failure; intubated ,s/p extubation 03/28/18 saturating well on nasal cannula oxygen, evaluation for home oxygen and discharge --Severe hypoalbuminemia; severe malnutrition Nutrition consults, albumin infusions, supportive care --Depression; consult psych, patient denies suicidal thoughts or ideation --DVT prophylaxis ; Lovenox renal dose Plan of care reviewed with the patient and his nurse Closely monitor blood sugars Disposition; Physical therapy recommended home health PT May DC in 1-2 days stable History Interval history: No new issues overnight Hospitalist Physical - Constitutional Vitals: Temp Pulse Resp BP Pulse Ox 99.0 F 90 19 193/85 93 04/11/18 07:26 04/11/18 07:26 04/11/18 07:26 04/11/18 08:55 04/11/18 07:26 General appearance: Present: no acute distress, well-nourished, obese - EENT Eyes: Present: PERRL, EOM intact ENT: hearing intact, clear oral mucosa, dentition normal - Neck Neck: Present: supple, normal ROM - Respiratory Respiratory effort: normal Respiratory: bilateral: CTA - Cardiovascular Rhythm: regular Heart Sounds: Present: S1 & S2. Absent: gallop, rub - Extremities Extremities: no ischemia, No edema, Full ROM - Abdominal General gastrointestinal: soft, non-tender, non-distended, normal bowel sounds - Integumentary Integumentary: Present: clear, warm, dry - Neurologic Neurologic: CNII-XII intact, moves all extremities Results - Labs CBC & Chem 7: 04/11/18 05:20 04/11/18 05:20 Labs: Laboratory Last Values WBC 5.9 K/mm3 (4.5-11.0) 04/11/18 05:20 RBC 2.93 M/mm3 (3.65-5.03) L 04/11/18 05:20 Hgb 8.1 gm/dl (11.8-15.2) L 04/11/18 05:20 Hct 25.1 % (35.5-45.6) L 04/11/18 05:20 MCV 86 fl (84-94) 04/11/18 05:20 MCH 28 pg (28-32) 04/11/18 05:20 MCHC 32 % (32-34) 04/11/18 05:20 RDW 14.3 % (13.2-15.2) 04/11/18 05:20 Plt Count 369 K/mm3 (140-440) 04/11/18 05:20 Lymph % (Auto) 15.9 % (13.4-35.0) 04/11/18 05:20 [place] % (Auto) 13.5 % (0.0-7.3) H 04/11/18 05:20 Eos % (Auto) 2.9 % (0.0-4.3) 04/11/18 05:20 Baso % (Auto) 0.7 % (0.0-1.8) 04/11/18 05:20 Lymph # 0.9 K/mm3 (1.2-5.4) L 04/11/18 05:20 [place] # 0.8 K/mm3 (0.0-0.8) 04/11/18 05:20 Eos # 0.2 K/mm3 (0.0-0.4) 04/11/18 05:20 Baso # 0.0 K/mm3 (0.0-0.1) 04/11/18 05:20 Add Manual Diff Complete 04/04/18 06:05 Total Counted 100 04/04/18 06:05 Seg Neutrophils % 67.0 % (40.0-70.0) 04/11/18 05:20 Seg Neuts % (Manual) 55.0 % (40.0-70.0) 04/04/18 06:05 Band Neutrophils % 2.0 % 04/04/18 06:05 Lymphocytes % (Manual) 14.0 % (13.4-35.0) 04/04/18 06:05 Reactive Lymphs % (Man) 0 % 04/04/18 06:05 Monocytes % (Manual) 23.0 % (0.0-7.3) H 04/04/18 06:05 Eosinophils % (Manual) 4.0 % (0.0-4.3) 04/04/18 06:05 Basophils % (Manual) 0 % (0.0-1.8) 04/04/18 06:05 Metamyelocytes % 2.0 % 04/04/18 06:05 Myelocytes % 0 % 04/04/18 06:05 Promyelocytes % 0 % 04/04/18 06:05 Blast Cells % 0 % 04/04/18 06:05 Nucleated RBC % Not Reportable 04/04/18 06:05 Seg Neutrophils # 3.9 K/mm3 (1.8-7.7) 04/11/18 05:20 Seg Neutrophils # Man 2.9 K/mm3 (1.8-7.7) 04/04/18 06:05 Band Neutrophils # 0.1 K/mm3 04/04/18 06:05 Lymphocytes # (Manual) 0.7 K/mm3 (1.2-5.4) L 04/04/18 06:05 Abs React Lymphs (Man) 0.0 K/mm3 04/04/18 06:05 Monocytes # (Manual) 1.2 K/mm3 (0.0-0.8) H 04/04/18 06:05 Eosinophils # (Manual) 0.2 K/mm3 (0.0-0.4) 04/04/18 06:05 Basophils # (Manual) 0.0 K/mm3 (0.0-0.1) 04/04/18 06:05 Metamyelocytes # 0.1 K/mm3 04/04/18 06:05 Myelocytes # 0.0 K/mm3 04/04/18 06:05 Promyelocytes # 0.0 K/mm3 04/04/18 06:05 Blast Cells # 0.0 K/mm3 04/04/18 06:05 WBC Morphology Not Reportable 04/04/18 06:05 Hypersegmented Neuts Not Reportable 04/04/18 06:05 Hyposegmented Neuts Not Reportable 04/04/18 06:05 Hypogranular Neuts Not Reportable 04/04/18 06:05 Smudge Cells Not Reportable 04/04/18 06:05 Toxic Granulation Not Reportable 04/04/18 06:05 Toxic Vacuolation Not Reportable 04/04/18 06:05 Dohle Bodies Not Reportable 04/04/18 06:05 Pelger-Huet Anomaly Not Reportable 04/04/18 06:05 Loi Rods Not Reportable 04/04/18 06:05 Platelet Estimate Appears normal 04/04/18 06:05 Clumped Platelets Not Reportable 04/04/18 06:05 Plt Clumps, EDTA Not Reportable 04/04/18 06:05 Large Platelets Not Reportable 04/04/18 06:05 Giant Platelets Not Reportable 04/04/18 06:05 Platelet Satelliting Not Reportable 04/04/18 06:05 Plt Morphology Comment Not Reportable 04/04/18 06:05 RBC Morphology Not Reportable 04/04/18 06:05 Dimorphic RBCs Not Reportable 04/04/18 06:05 Polychromasia Not Reportable 04/04/18 06:05 Hypochromasia Few 04/04/18 06:05 Poikilocytosis Not Reportable 04/04/18 06:05 Anisocytosis 1+ 04/04/18 06:05 Microcytosis Not Reportable 04/04/18 06:05 Macrocytosis Not Reportable 04/04/18 06:05 Spherocytes Not Reportable 04/04/18 06:05 Pappenheimer Bodies Not Reportable 04/04/18 06:05 Sickle Cells Not Reportable 04/04/18 06:05 Target Cells Not Reportable 04/04/18 06:05 Tear Drop Cells Not Reportable 04/04/18 06:05 Ovalocytes Not Reportable 04/04/18 06:05 Helmet Cells Not Reportable 04/04/18 06:05 [place] Bodies Not Reportable 04/04/18 06:05 [place] Rings Not Reportable 04/04/18 06:05 [place] Cells Not Reportable 04/04/18 06:05 Bite Cells Not Reportable 04/04/18 06:05 Crenated Cell Not Reportable 04/04/18 06:05 Elliptocytes Not Reportable 04/04/18 06:05 Acanthocytes (Spur) Not Reportable 04/04/18 06:05 Rouleaux Not Reportable 04/04/18 06:05 Hemoglobin C Crystals Not Reportable 04/04/18 06:05 Schistocytes Not Reportable 04/04/18 06:05 Malaria parasites Not Reportable 04/04/18 06:05 Lev Bodies Not Reportable 04/04/18 06:05 Hem Pathologist Commnt No 04/04/18 06:05 POC ABG pH 7.405 (7.35-7.45) 03/28/18 03:49 POC ABG pCO2 38.6 (35-45) 03/28/18 03:49 POC ABG pO2 102 (80-105) 03/28/18 03:49 POC ABG HCO3 24.2 03/28/18 03:49 POC ABG Total CO2 25 03/28/18 03:49 POC ABG O2 Sat 98 03/28/18 03:49 POC ABG Base Excess 0 03/28/18 03:49 VBG pH 7.000 (7.320-7.420) L* 03/25/18 14:41 FiO2 25 % 03/28/18 03:49 Sodium 138 mmol/L (137-145) 04/11/18 05:20 Potassium 5.1 mmol/L (3.6-5.0) H 04/11/18 05:20 Chloride 104.0 mmol/L (98-107) 04/11/18 05:20 Carbon Dioxide 21 mmol/L (22-30) L 04/11/18 05:20 Anion Gap 18 mmol/L 04/11/18 05:20 BUN 30 mg/dL (9-20) H 04/11/18 05:20 Creatinine 2.9 mg/dL (0.8-1.5) H 04/11/18 05:20 Estimated GFR 28 ml/min 04/11/18 05:20 BUN/Creatinine Ratio 10 % 04/11/18 05:20 Glucose 286 mg/dL (75-100) H 04/11/18 05:20 POC Glucose 320 (70-105) H 04/11/18 05:28 Hemoglobin A1c 8.9 % (4-6) H 03/25/18 18:55 Lactic Acid 1.80 mmol/L (0.7-2.0) 03/26/18 04:25 Calcium 7.5 mg/dL (8.4-10.2) L 04/11/18 05:20 Phosphorus 3.60 mg/dL (2.5-4.5) 04/11/18 05:20 Magnesium 2.00 mg/dL (1.7-2.3) 04/08/18 05:38 Iron 54 ug/dL (49-181) 03/28/18 04:35 TIBC 115 mcg/dL (250-450) L 03/28/18 04:35 Transferrin 94 mg/dl (180-329) L 03/28/18 04:35 Ferritin 412.1 ng/mL (13.0-400.0) H 03/28/18 04:35 Total Bilirubin 0.40 mg/dL (0.1-1.2) 04/08/18 05:38 Direct Bilirubin < 0.2 mg/dL (0-0.2) 03/25/18 14:08 Indirect Bilirubin 0.1 mg/dL 03/25/18 14:08 AST 20 units/L (5-40) 04/08/18 05:38 ALT 17 units/L (7-56) 04/08/18 05:38 Alkaline Phosphatase 75 units/L (35-129) 04/08/18 05:38 Total Creatine Kinase 226 units/L (55-170) H 03/25/18 18:09 CK-MB (CK-2) 3.7 ng/mL (0.0-4.0) 03/25/18 18:09 CK-MB (CK-2) Rel Index 1.6 (0-4) 03/25/18 18:09 Troponin T 0.033 ng/mL (0.00-0.029) H 03/25/18 18:09 NT-Pro-B Natriuret Pep 1858 pg/mL (0-900) H 04/07/18 05:46 Total Protein 6.0 g/dL (6.3-8.2) L 04/08/18 05:38 Albumin 2.9 g/dL (3.9-5) L 04/08/18 05:38 Albumin/Globulin Ratio 0.9 % 04/08/18 05:38 Triglycerides 185 mg/dL (2-149) H 03/25/18 18:09 Cholesterol 215 mg/dL (50-199) H 03/25/18 18:09 LDL Cholesterol Direct 144 mg/dL (50-130) H 03/25/18 18:09 HDL Cholesterol 48 mg/dL (40-59) 03/25/18 18:09 Cholesterol/HDL Ratio 4.47 % 03/25/18 18:09 Urine Color Yellow (Yellow) 04/08/18 17:30 Urine Turbidity Clear (Clear) 04/08/18 17:30 Urine pH 5.0 (5.0-7.0) 04/08/18 17:30 Ur Specific [place] 1.011 (1.003-1.030) 04/08/18 17:30 Urine Protein 100 mg/dl mg/dL (Negative) 04/08/18 17:30 Urine Glucose (UA) Neg mg/dL (Negative) 04/08/18 17:30 Urine Ketones Neg mg/dL (Negative) 04/08/18 17:30 Urine Blood Sm (Negative) 04/08/18 17:30 Urine Nitrite Neg (Negative) 04/08/18 17:30 Urine Bilirubin Neg (Negative) 04/08/18 17:30 Urine Urobilinogen < 2.0 mg/dL (<2.0) 04/08/18 17:30 Ur Leukocyte Esterase Neg (Negative) 04/08/18 17:30 Urine WBC (Auto) < 1.0 /HPF (0.0-6.0) 04/08/18 17:30 Urine RBC (Auto) 4.0 /HPF (0.0-6.0) 04/08/18 17:30 Urine Bacteria (Auto) 1+ /HPF (Negative) 04/08/18 17:30 Uric Acid Crystals 2+ 04/05/18 06:18 Hyaline Casts 1 /LPF 04/08/18 17:30 Urine Mucus Few /HPF 04/08/18 17:30 Urine Yeast (Budding) 1+ /HPF 04/05/18 06:18 Urine Eosinophils None seen (None Seen) 04/07/18 14:00 Urine Creatinine 63.0 mg/dL (0.1-20.0) H 04/08/18 17:30 Urine Microalbumin 206.9 mg/dL (0.1-34.0) H 04/08/18 17:30 Microalb/Creat Ratio 3284.1 ug/mg 04/08/18 17:30 Protein/Creatinin Ratio 4.57 04/08/18 17:30 Urine Sodium 94 mmol/L 04/07/18 14:00 Urine Chloride 91.4 mmolL (110-250) L 04/07/18 14:00 Urine Urea Nitrogen 215 04/07/18 14:00 Urine Total Protein 288 mg/dL (5-11.8) H 04/08/18 17:30 Random Vancomycin 8.9 ug/mL (0-40.0) 04/10/18 09:05 Urine Opiates Screen Presumptive negative 03/25/18 14:19 Urine Methadone Screen Presumptive negative 03/25/18 14:19 Ur Barbiturates Screen Presumptive negative 03/25/18 14:19 Ur Phencyclidine Scrn Presumptive negative 03/25/18 14:19 Ur Amphetamines Screen Presumptive negative 03/25/18 14:19 U Benzodiazepines Scrn Presumptive negative 03/25/18 14:19 Urine Cocaine Screen Presumptive negative 03/25/18 14:19 U Marijuana (THC) Screen Presumptive negative 03/25/18 14:19 Drugs of Abuse Note Disclamer 03/25/18 14:19 Hepatitis A IgM Ab Non-reactive (NonReactive) 04/10/18 17:21 Hep Bs Antigen Non-reactive (Negative) 04/10/18 17:21 Hep B Core IgM Ab Non-reactive (NonReactive) 04/10/18 17:21 Hepatitis C Antibody Non-reactive (NonReactive) 04/10/18 17:21 HIV 1&2 Antibody Rapid Non react (Non React) 04/10/18 17:21 HIV P24 Antigen Non react (Non React) 04/10/18 17:21 Blood Type O POSITIVE 04/04/18 20:14 Antibody Screen Negative 04/04/18 20:14 Crossmatch See Detail 04/04/18 20:14
[2018-04-11] MEDS: PROzac PO SCH (10:43)
[2018-04-11] MEDS: PEPCID PO SCH ×2 (10:43→21:51)
[2018-04-11] MEDS: MINIPRESS PO SCH ×2 (10:43→21:52)
[2018-04-11] MEDS: COREG PO SCH ×2 (10:44→21:51)
[2018-04-11] MEDS: LASIX PO SCH (10:45)
[2018-04-11] MEDS: LOVENOX SUB-Q SCH (10:45)
[2018-04-11] MEDS: BABY ASPIRIN PO SCH (12:44)
[2018-04-11] MEDS: SODIUM CHLORIDE FLUSH SYRINGE 10 ML IV SCH ×2 (13:11→21:57)
--- NOTE | 2018-04-11 14:01 | Progress Note ---
Subjective Date of service: 04/11/18 Principal diagnosis: Acute hypoxic respiratory failure, DKA, BELKIS, Acute encephalopathy Objective Vital Signs - 12hr 04/11/18 04/11/18 04/11/18 06:02 07:26 08:55 Temperature 99.0 F Pulse Rate 78 90 Respiratory 19 Rate Blood Pressure 184/84 193/85 193/85 O2 Sat by Pulse 93 Oximetry 04/11/18 04/11/18 10:43 10:44 Temperature Pulse Rate 78 78 Respiratory Rate Blood Pressure 180/81 180/81 O2 Sat by Pulse Oximetry Constitutional: no acute distress, other (middle aged AAM, normocephalic and atraumatic) Eyes: non-icteric ENT: oropharynx moist, other (mallampatti 2) Neck: supple, no lymphadenopathy, no JVD, other (no thyromegaly) Effort: normal Ascultation: Bilateral: diminished breath sounds, rhonchi (posterior base) Percussion: Bilateral: not dull Cardiovascular: regular rate and rhythm, other (No R/M) Gastrointestinal: normoactive bowel sounds, soft, non-tender, non-distended, other ( No HSM) Integumentary: normal Extremities: no cyanosis, pulses normal, no ischemia or petechiae, edema (to hands) Neurologic: normal mental status, non-focal exam (grossly), pupils equal and round, CN II-XII normal, motor strength normal and Psychiatric: mood appropriate, affect normal CBC and BMP: 04/11/18 05:20 04/11/18 05:20 ABG, PT/INR, D-dimer: ABG POC ABG pH 7.405 (7.35-7.45) 03/28/18 03:49 POC ABG pCO2 38.6 (35-45) 03/28/18 03:49 POC ABG pO2 102 (80-105) 03/28/18 03:49 POC ABG HCO3 24.2 03/28/18 03:49 POC ABG Total CO2 25 03/28/18 03:49 POC ABG O2 Sat 98 03/28/18 03:49 Abnormal lab findings: Abnormal Labs 03/25/18 03/25/18 03/25/18 13:48 14:00 14:00 WBC 15.3 H RBC Hgb 10.5 L Hct MCV 95 H MCH 27 L MCHC 28 L RDW Plt Count Lymph % (Auto) 8.5 L [place] % (Auto) Lymph # [place] # Seg Neutrophils % 86.4 H Seg Neuts % (Manual) Lymphocytes % (Manual) Monocytes % (Manual) Seg Neutrophils # 13.2 H Lymphocytes # (Manual) Monocytes # (Manual) POC ABG pH POC ABG pCO2 POC ABG pO2 VBG pH Sodium 132 L Potassium 8.1 H* Chloride 87.8 L Carbon Dioxide 3 L* BUN 43 H Creatinine 2.6 H Glucose 1026 H* POC Glucose > 500 H Hemoglobin A1c Lactic Acid Calcium Phosphorus TIBC Transferrin Ferritin AST Total Creatine Kinase Troponin T NT-Pro-B Natriuret Pep Total Protein Albumin Triglycerides Cholesterol LDL Cholesterol Direct Urine Creatinine Urine Microalbumin Urine Chloride Urine Total Protein Crossmatch 03/25/18 03/25/18 03/25/18 14:00 14:08 14:29 WBC RBC Hgb Hct MCV MCH MCHC RDW Plt Count Lymph % (Auto) [place] % (Auto) Lymph # [place] # Seg Neutrophils % Seg Neuts % (Manual) Lymphocytes % (Manual) Monocytes % (Manual) Seg Neutrophils # Lymphocytes # (Manual) Monocytes # (Manual) POC ABG pH 6.952 L POC ABG pCO2 25.8 L POC ABG pO2 559 H VBG pH Sodium Potassium Chloride Carbon Dioxide BUN Creatinine Glucose POC Glucose Hemoglobin A1c Lactic Acid 10.10 H* Calcium Phosphorus 8.70 H TIBC Transferrin Ferritin AST Total Creatine Kinase Troponin T NT-Pro-B Natriuret Pep Total Protein Albumin 2.6 L Triglycerides Cholesterol LDL Cholesterol Direct Urine Creatinine Urine Microalbumin Urine Chloride Urine Total Protein Crossmatch 03/25/18 03/25/18 03/25/18 14:41 15:40 15:40 WBC RBC Hgb Hct MCV MCH MCHC RDW Plt Count Lymph % (Auto) [place] % (Auto) Lymph # [place] # Seg Neutrophils % Seg Neuts % (Manual) Lymphocytes % (Manual) Monocytes % (Manual) Seg Neutrophils # Lymphocytes # (Manual) Monocytes # (Manual) POC ABG pH POC ABG pCO2 POC ABG pO2 VBG pH 7.000 L* Sodium Potassium 6.7 H* Chloride 97.5 L Carbon Dioxide 5 L* BUN 43 H Creatinine 2.5 H Glucose 893 H* POC Glucose Hemoglobin A1c Lactic Acid Calcium 7.5 L Phosphorus 9.10 H TIBC Transferrin Ferritin AST Total Creatine Kinase Troponin T NT-Pro-B Natriuret Pep Total Protein Albumin Triglycerides Cholesterol LDL Cholesterol Direct Urine Creatinine Urine Microalbumin Urine Chloride Urine Total Protein Crossmatch 03/25/18 03/25/18 03/25/18 18:09 18:12 18:55 WBC RBC Hgb Hct MCV MCH MCHC RDW Plt Count Lymph % (Auto) [place] % (Auto) Lymph # [place] # Seg Neutrophils % Seg Neuts % (Manual) Lymphocytes % (Manual) Monocytes % (Manual) Seg Neutrophils # Lymphocytes # (Manual) Monocytes # (Manual) POC ABG pH POC ABG pCO2 POC ABG pO2 VBG pH Sodium 133 L Potassium 5.7 H Chloride 93.1 L Carbon Dioxide 10 L BUN 43 H Creatinine 2.5 H Glucose 786 H* POC Glucose Hemoglobin A1c 8.9 H Lactic Acid Calcium 7.8 L Phosphorus TIBC Transferrin Ferritin AST Total Creatine Kinase 226 H Troponin T 0.033 H NT-Pro-B Natriuret Pep Total Protein Albumin Triglycerides 185 H Cholesterol 215 H LDL Cholesterol Direct 144 H Urine Creatinine Urine Microalbumin Urine Chloride Urine Total Protein Crossmatch 03/25/18 03/25/18 03/25/18 18:55 21:00 21:03 WBC RBC Hgb Hct MCV MCH MCHC RDW Plt Count Lymph % (Auto) [place] % (Auto) Lymph # [place] # Seg Neutrophils % Seg Neuts % (Manual) Lymphocytes % (Manual) Monocytes % (Manual) Seg Neutrophils # Lymphocytes # (Manual) Monocytes # (Manual) POC ABG pH POC ABG pCO2 POC ABG pO2 VBG pH Sodium 136 L Potassium 6.7 H* Chloride Carbon Dioxide 7 L* BUN 45 H Creatinine 2.6 H Glucose 879 H* POC Glucose > 500 H Hemoglobin A1c Lactic Acid Calcium 7.8 L Phosphorus 9.20 H TIBC Transferrin Ferritin AST Total Creatine Kinase Troponin T NT-Pro-B Natriuret Pep Total Protein Albumin Triglycerides Cholesterol LDL Cholesterol Direct Urine Creatinine Urine Microalbumin Urine Chloride Urine Total Protein Crossmatch 03/25/18 03/25/18 03/25/18 21:39 22:06 23:20 WBC RBC Hgb Hct MCV MCH MCHC RDW Plt Count Lymph % (Auto) [place] % (Auto) Lymph # [place] # Seg Neutrophils % Seg Neuts % (Manual) Lymphocytes % (Manual) Monocytes % (Manual) Seg Neutrophils # Lymphocytes # (Manual) Monocytes # (Manual) POC ABG pH 7.272 L POC ABG pCO2 14.2 L POC ABG pO2 263 H VBG pH Sodium Potassium Chloride Carbon Dioxide 7 L* BUN 47 H Creatinine 2.9 H Glucose 702 H* POC Glucose > 500 H Hemoglobin A1c Lactic Acid Calcium 7.6 L Phosphorus TIBC Transferrin Ferritin AST Total Creatine Kinase Troponin T NT-Pro-B Natriuret Pep Total Protein Albumin Triglycerides Cholesterol LDL Cholesterol Direct Urine Creatinine Urine Microalbumin Urine Chloride Urine Total Protein Crossmatch 03/25/18 03/26/18 03/26/18 23:20 00:17 01:08 WBC RBC Hgb Hct MCV MCH MCHC RDW Plt Count Lymph % (Auto) [place] % (Auto) Lymph # [place] # Seg Neutrophils % Seg Neuts % (Manual) Lymphocytes % (Manual) Monocytes % (Manual) Seg Neutrophils # Lymphocytes # (Manual) Monocytes # (Manual) POC ABG pH POC ABG pCO2 POC ABG pO2 VBG pH Sodium Potassium Chloride Carbon Dioxide BUN Creatinine Glucose POC Glucose > 500 H 447 H 484 H Hemoglobin A1c Lactic Acid Calcium Phosphorus TIBC Transferrin Ferritin AST Total Creatine Kinase Troponin T NT-Pro-B Natriuret Pep Total Protein Albumin Triglycerides Cholesterol LDL Cholesterol Direct Urine Creatinine Urine Microalbumin Urine Chloride Urine Total Protein Crossmatch 03/26/18 03/26/18 03/26/18 02:31 03:07 04:09 WBC RBC Hgb Hct MCV MCH MCHC RDW Plt Count Lymph % (Auto) [place] % (Auto) Lymph # [place] # Seg Neutrophils % Seg Neuts % (Manual) Lymphocytes % (Manual) Monocytes % (Manual) Seg Neutrophils # Lymphocytes # (Manual) Monocytes # (Manual) POC ABG pH POC ABG pCO2 POC ABG pO2 VBG pH Sodium Potassium Chloride Carbon Dioxide BUN Creatinine Glucose POC Glucose > 500 H 467 H 361 H Hemoglobin A1c Lactic Acid Calcium Phosphorus TIBC Transferrin Ferritin AST Total Creatine Kinase Troponin T NT-Pro-B Natriuret Pep Total Protein Albumin Triglycerides Cholesterol LDL Cholesterol Direct Urine Creatinine Urine Microalbumin Urine Chloride Urine Total Protein Crossmatch 03/26/18 03/26/18 03/26/18 04:25 05:24 06:19 WBC RBC Hgb Hct MCV MCH MCHC RDW Plt Count Lymph % (Auto) [place] % (Auto) Lymph # [place] # Seg Neutrophils % Seg Neuts % (Manual) Lymphocytes % (Manual) Monocytes % (Manual) Seg Neutrophils # Lymphocytes # (Manual) Monocytes # (Manual) POC ABG pH POC ABG pCO2 POC ABG pO2 VBG pH Sodium 150 H D Potassium 3.4 L D Chloride 118.3 H Carbon Dioxide 16 L D BUN 45 H Creatinine 2.7 H Glucose 278 H POC Glucose 306 H 188 H Hemoglobin A1c Lactic Acid Calcium 7.7 L Phosphorus TIBC Transferrin Ferritin AST Total Creatine Kinase Troponin T NT-Pro-B Natriuret Pep Total Protein Albumin Triglycerides Cholesterol LDL Cholesterol Direct Urine Creatinine Urine Microalbumin Urine Chloride Urine Total Protein Crossmatch 03/26/18 03/26/18 03/26/18 07:09 08:20 09:12 WBC RBC Hgb Hct MCV MCH MCHC RDW Plt Count Lymph % (Auto) [place] % (Auto) Lymph # [place] # Seg Neutrophils % Seg Neuts % (Manual) Lymphocytes % (Manual) Monocytes % (Manual) Seg Neutrophils # Lymphocytes # (Manual) Monocytes # (Manual) POC ABG pH 7.530 H POC ABG pCO2 22.0 L POC ABG pO2 147 H VBG pH Sodium Potassium Chloride Carbon Dioxide BUN Creatinine Glucose POC Glucose 148 H 170 H Hemoglobin A1c Lactic Acid Calcium Phosphorus TIBC Transferrin Ferritin AST Total Creatine Kinase Troponin T NT-Pro-B Natriuret Pep Total Protein Albumin Triglycerides Cholesterol LDL Cholesterol Direct Urine Creatinine Urine Microalbumin Urine Chloride Urine Total Protein Crossmatch 03/26/18 03/26/18 03/26/18 09:15 10:30 10:46 WBC RBC Hgb Hct MCV MCH MCHC RDW Plt Count Lymph % (Auto) [place] % (Auto) Lymph # [place] # Seg Neutrophils % Seg Neuts % (Manual) Lymphocytes % (Manual) Monocytes % (Manual) Seg Neutrophils # Lymphocytes # (Manual) Monocytes # (Manual) POC ABG pH POC ABG pCO2 POC ABG pO2 VBG pH Sodium 152 H Potassium 3.1 L Chloride 121.4 H Carbon Dioxide BUN 43 H Creatinine 2.6 H Glucose 105 H POC Glucose 177 H 125 H Hemoglobin A1c Lactic Acid Calcium 7.5 L Phosphorus TIBC Transferrin Ferritin AST Total Creatine Kinase Troponin T NT-Pro-B Natriuret Pep Total Protein Albumin Triglycerides Cholesterol LDL Cholesterol Direct Urine Creatinine Urine Microalbumin Urine Chloride Urine Total Protein Crossmatch 03/26/18 03/26/18 03/26/18 14:57 15:35 18:12 WBC RBC Hgb Hct MCV MCH MCHC RDW Plt Count Lymph % (Auto) [place] % (Auto) Lymph # [place] # Seg Neutrophils % Seg Neuts % (Manual) Lymphocytes % (Manual) Monocytes % (Manual) Seg Neutrophils # Lymphocytes # (Manual) Monocytes # (Manual) POC ABG pH POC ABG pCO2 POC ABG pO2 VBG pH Sodium 148 H Potassium Chloride 117.5 H Carbon Dioxide 18 L BUN 43 H Creatinine 2.5 H Glucose 135 H POC Glucose 159 H 245 H Hemoglobin A1c Lactic Acid Calcium 7.3 L Phosphorus TIBC Transferrin Ferritin AST Total Creatine Kinase Troponin T NT-Pro-B Natriuret Pep Total Protein Albumin Triglycerides Cholesterol LDL Cholesterol Direct Urine Creatinine Urine Microalbumin Urine Chloride Urine Total Protein Crossmatch 03/26/18 03/26/18 03/27/18 19:27 21:42 02:03 WBC RBC Hgb Hct MCV MCH MCHC RDW Plt Count Lymph % (Auto) [place] % (Auto) Lymph # [place] # Seg Neutrophils % Seg Neuts % (Manual) Lymphocytes % (Manual) Monocytes % (Manual) Seg Neutrophils # Lymphocytes # (Manual) Monocytes # (Manual) POC ABG pH POC ABG pCO2 POC ABG pO2 VBG pH Sodium Potassium Chloride 115.0 H Carbon Dioxide 20 L BUN 42 H Creatinine 2.4 H Glucose 221 H POC Glucose 261 H 254 H Hemoglobin A1c Lactic Acid Calcium 7.1 L Phosphorus TIBC Transferrin Ferritin AST Total Creatine Kinase Troponin T NT-Pro-B Natriuret Pep Total Protein Albumin Triglycerides Cholesterol LDL Cholesterol Direct Urine Creatinine Urine Microalbumin Urine Chloride Urine Total Protein Crossmatch 03/27/18 03/27/18 03/27/18 03:35 03:35 05:20 WBC 12.3 H RBC 3.05 L Hgb 8.3 L Hct 25.3 L D MCV 83 L MCH 27 L MCHC RDW Plt Count Lymph % (Auto) [place] % (Auto) 8.6 H Lymph # [place] # 1.1 H Seg Neutrophils % 76.5 H Seg Neuts % (Manual) Lymphocytes % (Manual) Monocytes % (Manual) Seg Neutrophils # 9.4 H Lymphocytes # (Manual) Monocytes # (Manual) POC ABG pH POC ABG pCO2 POC ABG pO2 VBG pH Sodium Potassium Chloride 112.6 H Carbon Dioxide BUN 36 H Creatinine 2.1 H Glucose 244 H POC Glucose 263 H Hemoglobin A1c Lactic Acid Calcium 7.1 L Phosphorus TIBC Transferrin Ferritin AST 44 H Total Creatine Kinase Troponin T NT-Pro-B Natriuret Pep Total Protein 5.1 L D Albumin 2.1 L Triglycerides Cholesterol LDL Cholesterol Direct Urine Creatinine Urine Microalbumin Urine Chloride Urine Total Protein Crossmatch 03/27/18 03/27/18 03/27/18 08:22 13:00 14:06 WBC RBC Hgb Hct MCV MCH MCHC RDW Plt Count Lymph % (Auto) [place] % (Auto) Lymph # [place] # Seg Neutrophils % Seg Neuts % (Manual) Lymphocytes % (Manual) Monocytes % (Manual) Seg Neutrophils # Lymphocytes # (Manual) Monocytes # (Manual) POC ABG pH POC ABG pCO2 34.7 L POC ABG pO2 VBG pH Sodium Potassium Chloride Carbon Dioxide BUN Creatinine Glucose POC Glucose 306 H 233 H Hemoglobin A1c Lactic Acid Calcium Phosphorus TIBC Transferrin Ferritin AST Total Creatine Kinase Troponin T NT-Pro-B Natriuret Pep Total Protein Albumin Triglycerides Cholesterol LDL Cholesterol Direct Urine Creatinine Urine Microalbumin Urine Chloride Urine Total Protein Crossmatch 03/27/18 03/27/18 03/27/18 16:15 18:11 21:44 WBC RBC Hgb Hct MCV MCH MCHC RDW Plt Count Lymph % (Auto) [place] % (Auto) Lymph # [place] # Seg Neutrophils % Seg Neuts % (Manual) Lymphocytes % (Manual) Monocytes % (Manual) Seg Neutrophils # Lymphocytes # (Manual) Monocytes # (Manual) POC ABG pH POC ABG pCO2 POC ABG pO2 VBG pH Sodium Potassium Chloride Carbon Dioxide BUN Creatinine Glucose POC Glucose 243 H 226 H 224 H Hemoglobin A1c Lactic Acid Calcium Phosphorus TIBC Transferrin Ferritin AST Total Creatine Kinase Troponin T NT-Pro-B Natriuret Pep Total Protein Albumin Triglycerides Cholesterol LDL Cholesterol Direct Urine Creatinine Urine Microalbumin Urine Chloride Urine Total Protein Crossmatch 03/28/18 03/28/18 03/28/18 02:07 04:35 04:35 WBC RBC Hgb Hct MCV MCH MCHC RDW Plt Count Lymph % (Auto) [place] % (Auto) Lymph # [place] # Seg Neutrophils % Seg Neuts % (Manual) Lymphocytes % (Manual) Monocytes % (Manual) Seg Neutrophils # Lymphocytes # (Manual) Monocytes # (Manual) POC ABG pH POC ABG pCO2 POC ABG pO2 VBG pH Sodium Potassium Chloride Carbon Dioxide BUN Creatinine Glucose POC Glucose 220 H Hemoglobin A1c Lactic Acid Calcium Phosphorus TIBC 115 L Transferrin 94 L Ferritin 412.1 H AST Total Creatine Kinase Troponin T NT-Pro-B Natriuret Pep Total Protein Albumin Triglycerides Cholesterol LDL Cholesterol Direct Urine Creatinine Urine Microalbumin Urine Chloride Urine Total Protein Crossmatch 03/28/18 03/28/18 03/28/18 05:27 09:52 10:59 WBC RBC 3.22 L Hgb 9.1 L Hct 26.8 L MCV 83 L MCH MCHC RDW Plt Count 134 L Lymph % (Auto) [place] % (Auto) Lymph # [place] # Seg Neutrophils % Seg Neuts % (Manual) Lymphocytes % (Manual) Monocytes % (Manual) Seg Neutrophils # Lymphocytes # (Manual) Monocytes # (Manual) POC ABG pH POC ABG pCO2 POC ABG pO2 VBG pH Sodium Potassium Chloride Carbon Dioxide BUN Creatinine Glucose POC Glucose 280 H 332 H Hemoglobin A1c Lactic Acid Calcium Phosphorus TIBC Transferrin Ferritin AST Total Creatine Kinase Troponin T NT-Pro-B Natriuret Pep Total Protein Albumin Triglycerides Cholesterol LDL Cholesterol Direct Urine Creatinine Urine Microalbumin Urine Chloride Urine Total Protein Crossmatch 03/28/18 03/28/18 03/28/18 10:59 14:39 17:47 WBC RBC Hgb Hct MCV MCH MCHC RDW Plt Count Lymph % (Auto) [place] % (Auto) Lymph # [place] # Seg Neutrophils % Seg Neuts % (Manual) Lymphocytes % (Manual) Monocytes % (Manual) Seg Neutrophils # Lymphocytes # (Manual) Monocytes # (Manual) POC ABG pH POC ABG pCO2 POC ABG pO2 VBG pH Sodium 136 L Potassium Chloride Carbon Dioxide BUN 29 H Creatinine Glucose 310 H POC Glucose 250 H 132 H Hemoglobin A1c Lactic Acid Calcium 7.0 L Phosphorus TIBC Transferrin Ferritin AST Total Creatine Kinase Troponin T NT-Pro-B Natriuret Pep Total Protein Albumin Triglycerides Cholesterol LDL Cholesterol Direct Urine Creatinine Urine Microalbumin Urine Chloride Urine Total Protein Crossmatch 03/29/18 03/29/18 03/29/18 01:49 04:23 05:45 WBC RBC 3.13 L Hgb 8.8 L Hct 25.8 L MCV 82 L MCH MCHC RDW 12.7 L Plt Count 132 L Lymph % (Auto) 10.8 L [place] % (Auto) 9.1 H Lymph # 1.0 L [place] # Seg Neutrophils % 79.1 H Seg Neuts % (Manual) Lymphocytes % (Manual) Monocytes % (Manual) Seg Neutrophils # Lymphocytes # (Manual) Monocytes # (Manual) POC ABG pH POC ABG pCO2 POC ABG pO2 VBG pH Sodium 134 L Potassium Chloride Carbon Dioxide BUN 27 H Creatinine Glucose 172 H POC Glucose 122 H Hemoglobin A1c Lactic Acid Calcium 7.1 L Phosphorus TIBC Transferrin Ferritin AST Total Creatine Kinase Troponin T NT-Pro-B Natriuret Pep Total Protein Albumin Triglycerides Cholesterol LDL Cholesterol Direct Urine Creatinine Urine Microalbumin Urine Chloride Urine Total Protein Crossmatch 03/29/18 03/29/18 03/29/18 05:57 09:19 13:09 WBC RBC Hgb Hct MCV MCH MCHC RDW Plt Count Lymph % (Auto) [place] % (Auto) Lymph # [place] # Seg Neutrophils % Seg Neuts % (Manual) Lymphocytes % (Manual) Monocytes % (Manual) Seg Neutrophils # Lymphocytes # (Manual) Monocytes # (Manual) POC ABG pH POC ABG pCO2 POC ABG pO2 VBG pH Sodium Potassium Chloride Carbon Dioxide BUN Creatinine Glucose POC Glucose 224 H 316 H 345 H Hemoglobin A1c Lactic Acid Calcium Phosphorus TIBC Transferrin Ferritin AST Total Creatine Kinase Troponin T NT-Pro-B Natriuret Pep Total Protein Albumin Triglycerides Cholesterol LDL Cholesterol Direct Urine Creatinine Urine Microalbumin Urine Chloride Urine Total Protein Crossmatch 03/29/18 03/29/18 03/29/18 16:27 22:26 22:36 WBC RBC Hgb Hct MCV MCH MCHC RDW Plt Count Lymph % (Auto) [place] % (Auto) Lymph # [place] # Seg Neutrophils % Seg Neuts % (Manual) Lymphocytes % (Manual) Monocytes % (Manual) Seg Neutrophils # Lymphocytes # (Manual) Monocytes # (Manual) POC ABG pH POC ABG pCO2 POC ABG pO2 VBG pH Sodium Potassium Chloride Carbon Dioxide BUN Creatinine Glucose POC Glucose 210 H < 40 L 172 H Hemoglobin A1c Lactic Acid Calcium Phosphorus TIBC Transferrin Ferritin AST Total Creatine Kinase Troponin T NT-Pro-B Natriuret Pep Total Protein Albumin Triglycerides Cholesterol LDL Cholesterol Direct Urine Creatinine Urine Microalbumin Urine Chloride Urine Total Protein Crossmatch 03/30/18 03/30/18 03/30/18 00:07 05:12 06:39 WBC RBC 2.95 L Hgb 8.3 L Hct 24.6 L MCV 83 L MCH MCHC RDW 12.9 L Plt Count Lymph % (Auto) [place] % (Auto) 13.5 H Lymph # [place] # 0.9 H Seg Neutrophils % Seg Neuts % (Manual) Lymphocytes % (Manual) Monocytes % (Manual) Seg Neutrophils # Lymphocytes # (Manual) Monocytes # (Manual) POC ABG pH POC ABG pCO2 POC ABG pO2 VBG pH Sodium Potassium Chloride Carbon Dioxide BUN Creatinine Glucose POC Glucose 69 L 213 H Hemoglobin A1c Lactic Acid Calcium Phosphorus TIBC Transferrin Ferritin AST Total Creatine Kinase Troponin T NT-Pro-B Natriuret Pep Total Protein Albumin Triglycerides Cholesterol LDL Cholesterol Direct Urine Creatinine Urine Microalbumin Urine Chloride Urine Total Protein Crossmatch 03/30/18 03/30/18 03/30/18 06:39 10:06 13:59 WBC RBC Hgb Hct MCV MCH MCHC RDW Plt Count Lymph % (Auto) [place] % (Auto) Lymph # [place] # Seg Neutrophils % Seg Neuts % (Manual) Lymphocytes % (Manual) Monocytes % (Manual) Seg Neutrophils # Lymphocytes # (Manual) Monocytes # (Manual) POC ABG pH POC ABG pCO2 POC ABG pO2 VBG pH Sodium 133 L Potassium 3.5 L D Chloride 95.6 L Carbon Dioxide BUN 34 H Creatinine Glucose 241 H POC Glucose 368 H 237 H Hemoglobin A1c Lactic Acid Calcium 7.3 L Phosphorus TIBC Transferrin Ferritin AST Total Creatine Kinase Troponin T NT-Pro-B Natriuret Pep Total Protein Albumin Triglycerides Cholesterol LDL Cholesterol Direct Urine Creatinine Urine Microalbumin Urine Chloride Urine Total Protein Crossmatch 03/30/18 03/30/18 03/30/18 16:39 20:47 21:30 WBC RBC Hgb Hct MCV MCH MCHC RDW Plt Count Lymph % (Auto) [place] % (Auto) Lymph # [place] # Seg Neutrophils % Seg Neuts % (Manual) Lymphocytes % (Manual) Monocytes % (Manual) Seg Neutrophils # Lymphocytes # (Manual) Monocytes # (Manual) POC ABG pH POC ABG pCO2 POC ABG pO2 VBG pH Sodium Potassium Chloride Carbon Dioxide BUN Creatinine Glucose POC Glucose 176 H 60 L 113 H Hemoglobin A1c Lactic Acid Calcium Phosphorus TIBC Transferrin Ferritin AST Total Creatine Kinase Troponin T NT-Pro-B Natriuret Pep Total Protein Albumin Triglycerides Cholesterol LDL Cholesterol Direct Urine Creatinine Urine Microalbumin Urine Chloride Urine Total Protein Crossmatch 03/31/18 03/31/18 03/31/18 02:07 06:45 07:24 WBC RBC 3.06 L Hgb 8.6 L Hct 25.3 L MCV 83 L MCH MCHC RDW 12.7 L Plt Count Lymph % (Auto) [place] % (Auto) Lymph # [place] # Seg Neutrophils % Seg Neuts % (Manual) 73.0 H Lymphocytes % (Manual) 6.0 L Monocytes % (Manual) 21.0 H Seg Neutrophils # Lymphocytes # (Manual) 0.4 L Monocytes # (Manual) 1.4 H POC ABG pH POC ABG pCO2 POC ABG pO2 VBG pH Sodium Potassium Chloride Carbon Dioxide BUN Creatinine Glucose POC Glucose 140 H 260 H Hemoglobin A1c Lactic Acid Calcium Phosphorus TIBC Transferrin Ferritin AST Total Creatine Kinase Troponin T NT-Pro-B Natriuret Pep Total Protein Albumin Triglycerides Cholesterol LDL Cholesterol Direct Urine Creatinine Urine Microalbumin Urine Chloride Urine Total Protein Crossmatch 03/31/18 03/31/18 03/31/18 07:24 11:51 13:08 WBC RBC Hgb Hct MCV MCH MCHC RDW Plt Count Lymph % (Auto) [place] % (Auto) Lymph # [place] # Seg Neutrophils % Seg Neuts % (Manual) Lymphocytes % (Manual) Monocytes % (Manual) Seg Neutrophils # Lymphocytes # (Manual) Monocytes # (Manual) POC ABG pH POC ABG pCO2 POC ABG pO2 VBG pH Sodium 134 L Potassium Chloride Carbon Dioxide BUN 36 H Creatinine 1.8 H Glucose 271 H POC Glucose > 500 H > 500 H Hemoglobin A1c Lactic Acid Calcium 7.3 L Phosphorus TIBC Transferrin Ferritin AST Total Creatine Kinase Troponin T NT-Pro-B Natriuret Pep Total Protein Albumin Triglycerides Cholesterol LDL Cholesterol Direct Urine Creatinine Urine Microalbumin Urine Chloride Urine Total Protein Crossmatch 03/31/18 03/31/18 03/31/18 14:00 16:15 16:29 WBC RBC Hgb Hct MCV MCH MCHC RDW Plt Count Lymph % (Auto) [place] % (Auto) Lymph # [place] # Seg Neutrophils % Seg Neuts % (Manual) Lymphocytes % (Manual) Monocytes % (Manual) Seg Neutrophils # Lymphocytes # (Manual) Monocytes # (Manual) POC ABG pH POC ABG pCO2 POC ABG pO2 VBG pH Sodium Potassium Chloride Carbon Dioxide BUN Creatinine Glucose POC Glucose > 500 H 405 H 424 H Hemoglobin A1c Lactic Acid Calcium Phosphorus TIBC Transferrin Ferritin AST Total Creatine Kinase Troponin T NT-Pro-B Natriuret Pep Total Protein Albumin Triglycerides Cholesterol LDL Cholesterol Direct Urine Creatinine Urine Microalbumin Urine Chloride Urine Total Protein Crossmatch 03/31/18 04/01/18 04/01/18 21:14 00:21 05:51 WBC RBC 2.55 L Hgb 7.1 L Hct 21.2 L MCV 83 L MCH MCHC RDW 12.5 L Plt Count Lymph % (Auto) [place] % (Auto) Lymph # [place] # Seg Neutrophils % Seg Neuts % (Manual) Lymphocytes % (Manual) Monocytes % (Manual) 22.0 H Seg Neutrophils # Lymphocytes # (Manual) Monocytes # (Manual) 1.1 H POC ABG pH POC ABG pCO2 POC ABG pO2 VBG pH Sodium Potassium Chloride Carbon Dioxide BUN Creatinine Glucose POC Glucose 393 H 384 H Hemoglobin A1c Lactic Acid Calcium Phosphorus TIBC Transferrin Ferritin AST Total Creatine Kinase Troponin T NT-Pro-B Natriuret Pep Total Protein Albumin Triglycerides Cholesterol LDL Cholesterol Direct Urine Creatinine Urine Microalbumin Urine Chloride Urine Total Protein Crossmatch 04/01/18 04/01/18 04/01/18 05:51 06:52 11:13 WBC RBC Hgb Hct MCV MCH MCHC RDW Plt Count Lymph % (Auto) [place] % (Auto) Lymph # [place] # Seg Neutrophils % Seg Neuts % (Manual) Lymphocytes % (Manual) Monocytes % (Manual) Seg Neutrophils # Lymphocytes # (Manual) Monocytes # (Manual) POC ABG pH POC ABG pCO2 POC ABG pO2 VBG pH Sodium Potassium Chloride Carbon Dioxide BUN 35 H Creatinine Glucose 120 H POC Glucose 114 H Hemoglobin A1c Lactic Acid Calcium 7.3 L Phosphorus TIBC Transferrin Ferritin AST Total Creatine Kinase Troponin T NT-Pro-B Natriuret Pep Total Protein Albumin Triglycerides Cholesterol LDL Cholesterol Direct Urine Creatinine Urine Microalbumin Urine Chloride Urine Total Protein Crossmatch See Detail 04/01/18 04/01/18 04/01/18 11:16 12:06 16:04 WBC RBC Hgb 7.3 L Hct 21.5 L MCV MCH MCHC RDW Plt Count Lymph % (Auto) [place] % (Auto) Lymph # [place] # Seg Neutrophils % Seg Neuts % (Manual) Lymphocytes % (Manual) Monocytes % (Manual) Seg Neutrophils # Lymphocytes # (Manual) Monocytes # (Manual) POC ABG pH POC ABG pCO2 POC ABG pO2 VBG pH Sodium Potassium Chloride Carbon Dioxide BUN Creatinine Glucose POC Glucose 223 H 225 H Hemoglobin A1c Lactic Acid Calcium Phosphorus TIBC Transferrin Ferritin AST Total Creatine Kinase Troponin T NT-Pro-B Natriuret Pep Total Protein Albumin Triglycerides Cholesterol LDL Cholesterol Direct Urine Creatinine Urine Microalbumin Urine Chloride Urine Total Protein Crossmatch 04/01/18 04/01/18 04/01/18 16:46 19:47 21:15 WBC RBC Hgb 7.7 L Hct 23.5 L MCV MCH MCHC RDW Plt Count Lymph % (Auto) [place] % (Auto) Lymph # [place] # Seg Neutrophils % Seg Neuts % (Manual) Lymphocytes % (Manual) Monocytes % (Manual) Seg Neutrophils # Lymphocytes # (Manual) Monocytes # (Manual) POC ABG pH POC ABG pCO2 POC ABG pO2 VBG pH Sodium Potassium Chloride Carbon Dioxide BUN Creatinine Glucose POC Glucose 219 H 380 H Hemoglobin A1c Lactic Acid Calcium Phosphorus TIBC Transferrin Ferritin AST Total Creatine Kinase Troponin T NT-Pro-B Natriuret Pep Total Protein Albumin Triglycerides Cholesterol LDL Cholesterol Direct Urine Creatinine Urine Microalbumin Urine Chloride Urine Total Protein Crossmatch 04/02/18 04/02/18 04/02/18 05:47 06:57 07:52 WBC RBC 2.80 L Hgb 7.7 L Hct 23.5 L MCV MCH MCHC RDW Plt Count Lymph % (Auto) [place] % (Auto) Lymph # [place] # Seg Neutrophils % Seg Neuts % (Manual) Lymphocytes % (Manual) Monocytes % (Manual) 25.0 H Seg Neutrophils # Lymphocytes # (Manual) 1.1 L Monocytes # (Manual) 1.3 H POC ABG pH POC ABG pCO2 POC ABG pO2 VBG pH Sodium Potassium Chloride Carbon Dioxide BUN Creatinine Glucose POC Glucose 49 L 111 H Hemoglobin A1c Lactic Acid Calcium Phosphorus TIBC Transferrin Ferritin AST Total Creatine Kinase Troponin T NT-Pro-B Natriuret Pep Total Protein Albumin Triglycerides Cholesterol LDL Cholesterol Direct Urine Creatinine Urine Microalbumin Urine Chloride Urine Total Protein Crossmatch 04/02/18 04/02/18 04/02/18 07:52 12:36 16:36 WBC RBC Hgb Hct MCV MCH MCHC RDW Plt Count Lymph % (Auto) [place] % (Auto) Lymph # [place] # Seg Neutrophils % Seg Neuts % (Manual) Lymphocytes % (Manual) Monocytes % (Manual) Seg Neutrophils # Lymphocytes # (Manual) Monocytes # (Manual) POC ABG pH POC ABG pCO2 POC ABG pO2 VBG pH Sodium Potassium Chloride Carbon Dioxide BUN 28 H Creatinine Glucose 115 H POC Glucose 259 H 297 H Hemoglobin A1c Lactic Acid Calcium 7.3 L Phosphorus TIBC Transferrin Ferritin AST Total Creatine Kinase Troponin T NT-Pro-B Natriuret Pep Total Protein Albumin Triglycerides Cholesterol LDL Cholesterol Direct Urine Creatinine Urine Microalbumin Urine Chloride Urine Total Protein Crossmatch 06/03/1504/03/18 04/03/18 22:01 04:20 04:46 WBC RBC Hgb Hct MCV MCH MCHC RDW Plt Count Lymph % (Auto) [place] % (Auto) Lymph # [place] # Seg Neutrophils % Seg Neuts % (Manual) Lymphocytes % (Manual) Monocytes % (Manual) Seg Neutrophils # Lymphocytes # (Manual) Monocytes # (Manual) POC ABG pH POC ABG pCO2 POC ABG pO2 VBG pH Sodium Potassium Chloride Carbon Dioxide BUN Creatinine Glucose POC Glucose 206 H < 40 L 64 L Hemoglobin A1c Lactic Acid Calcium Phosphorus TIBC Transferrin Ferritin AST Total Creatine Kinase Troponin T NT-Pro-B Natriuret Pep Total Protein Albumin Triglycerides Cholesterol LDL Cholesterol Direct Urine Creatinine Urine Microalbumin Urine Chloride Urine Total Protein Crossmatch 04/03/18 04/03/18 04/03/18 05:46 05:46 05:57 WBC RBC 2.72 L Hgb 7.6 L Hct 22.4 L MCV 83 L MCH MCHC RDW Plt Count Lymph % (Auto) [place] % (Auto) Lymph # [place] # Seg Neutrophils % Seg Neuts % (Manual) Lymphocytes % (Manual) 13.0 L Monocytes % (Manual) 19.0 H Seg Neutrophils # Lymphocytes # (Manual) 0.9 L Monocytes # (Manual) 1.3 H POC ABG pH POC ABG pCO2 POC ABG pO2 VBG pH Sodium Potassium Chloride 110.7 H Carbon Dioxide BUN 24 H Creatinine Glucose 45 L POC Glucose < 40 L Hemoglobin A1c Lactic Acid Calcium 7.3 L Phosphorus TIBC Transferrin Ferritin AST Total Creatine Kinase Troponin T NT-Pro-B Natriuret Pep Total Protein Albumin Triglycerides Cholesterol LDL Cholesterol Direct Urine Creatinine Urine Microalbumin Urine Chloride Urine Total Protein Crossmatch 04/03/18 04/03/18 04/03/18 07:04 09:17 11:34 WBC RBC Hgb Hct MCV MCH MCHC RDW Plt Count Lymph % (Auto) [place] % (Auto) Lymph # [place] # Seg Neutrophils % Seg Neuts % (Manual) Lymphocytes % (Manual) Monocytes % (Manual) Seg Neutrophils # Lymphocytes # (Manual) Monocytes # (Manual) POC ABG pH POC ABG pCO2 POC ABG pO2 VBG pH Sodium Potassium Chloride Carbon Dioxide BUN Creatinine Glucose POC Glucose 44 L 107 H 196 H Hemoglobin A1c Lactic Acid Calcium Phosphorus TIBC Transferrin Ferritin AST Total Creatine Kinase Troponin T NT-Pro-B Natriuret Pep Total Protein Albumin Triglycerides Cholesterol LDL Cholesterol Direct Urine Creatinine Urine Microalbumin Urine Chloride Urine Total Protein Crossmatch 04/03/18 04/03/18 04/04/18 16:48 20:25 06:05 WBC RBC 2.49 L Hgb 6.9 L Hct 20.8 L MCV 83 L MCH MCHC RDW Plt Count Lymph % (Auto) [place] % (Auto) Lymph # [place] # Seg Neutrophils % Seg Neuts % (Manual) Lymphocytes % (Manual) Monocytes % (Manual) 23.0 H Seg Neutrophils # Lymphocytes # (Manual) 0.7 L Monocytes # (Manual) 1.2 H POC ABG pH POC ABG pCO2 POC ABG pO2 VBG pH Sodium Potassium Chloride Carbon Dioxide BUN Creatinine Glucose POC Glucose 251 H 211 H Hemoglobin A1c Lactic Acid Calcium Phosphorus TIBC Transferrin Ferritin AST Total Creatine Kinase Troponin T NT-Pro-B Natriuret Pep Total Protein Albumin Triglycerides Cholesterol LDL Cholesterol Direct Urine Creatinine Urine Microalbumin Urine Chloride Urine Total Protein Crossmatch 04/04/18 04/04/18 04/04/18 06:05 06:06 20:14 WBC RBC Hgb Hct MCV MCH MCHC RDW Plt Count Lymph % (Auto) [place] % (Auto) Lymph # [place] # Seg Neutrophils % Seg Neuts % (Manual) Lymphocytes % (Manual) Monocytes % (Manual) Seg Neutrophils # Lymphocytes # (Manual) Monocytes # (Manual) POC ABG pH POC ABG pCO2 POC ABG pO2 VBG pH Sodium Potassium Chloride 109.8 H Carbon Dioxide BUN 22 H Creatinine 1.7 H Glucose 260 H POC Glucose 312 H Hemoglobin A1c Lactic Acid Calcium 7.2 L Phosphorus TIBC Transferrin Ferritin AST Total Creatine Kinase Troponin T NT-Pro-B Natriuret Pep Total Protein Albumin Triglycerides Cholesterol LDL Cholesterol Direct Urine Creatinine Urine Microalbumin Urine Chloride Urine Total Protein Crossmatch See Detail 04/04/18 04/05/18 04/05/18 22:23 06:10 06:10 WBC RBC 2.97 L Hgb 8.6 L Hct 25.0 L MCV MCH MCHC RDW Plt Count Lymph % (Auto) [place] % (Auto) 15.9 H Lymph # [place] # 1.2 H Seg Neutrophils % Seg Neuts % (Manual) Lymphocytes % (Manual) Monocytes % (Manual) Seg Neutrophils # Lymphocytes # (Manual) Monocytes # (Manual) POC ABG pH POC ABG pCO2 POC ABG pO2 VBG pH Sodium Potassium Chloride 108.4 H Carbon Dioxide 20 L BUN Creatinine 1.9 H Glucose 42 L POC Glucose 116 H Hemoglobin A1c Lactic Acid Calcium 7.3 L Phosphorus TIBC Transferrin Ferritin AST Total Creatine Kinase Troponin T NT-Pro-B Natriuret Pep Total Protein 5.7 L Albumin 2.3 L Triglycerides Cholesterol LDL Cholesterol Direct Urine Creatinine Urine Microalbumin Urine Chloride Urine Total Protein Crossmatch 04/05/18 04/05/18 04/05/18 06:18 06:20 12:17 WBC RBC Hgb Hct MCV MCH MCHC RDW Plt Count Lymph % (Auto) [place] % (Auto) Lymph # [place] # Seg Neutrophils % Seg Neuts % (Manual) Lymphocytes % (Manual) Monocytes % (Manual) Seg Neutrophils # Lymphocytes # (Manual) Monocytes # (Manual) POC ABG pH POC ABG pCO2 POC ABG pO2 VBG pH Sodium Potassium Chloride Carbon Dioxide BUN Creatinine Glucose POC Glucose 44 L 123 H Hemoglobin A1c Lactic Acid Calcium Phosphorus TIBC Transferrin Ferritin AST Total Creatine Kinase Troponin T NT-Pro-B Natriuret Pep Total Protein Albumin Triglycerides Cholesterol LDL Cholesterol Direct Urine Creatinine 112.0 H Urine Microalbumin Urine Chloride Urine Total Protein Crossmatch 04/05/18 04/05/18 04/06/18 16:33 21:29 07:06 WBC RBC Hgb Hct MCV MCH MCHC RDW Plt Count Lymph % (Auto) [place] % (Auto) Lymph # [place] # Seg Neutrophils % Seg Neuts % (Manual) Lymphocytes % (Manual) Monocytes % (Manual) Seg Neutrophils # Lymphocytes # (Manual) Monocytes # (Manual) POC ABG pH POC ABG pCO2 POC ABG pO2 VBG pH Sodium Potassium Chloride Carbon Dioxide BUN Creatinine Glucose POC Glucose 268 H 207 H 42 L Hemoglobin A1c Lactic Acid Calcium Phosphorus TIBC Transferrin Ferritin AST Total Creatine Kinase Troponin T NT-Pro-B Natriuret Pep Total Protein Albumin Triglycerides Cholesterol LDL Cholesterol Direct Urine Creatinine Urine Microalbumin Urine Chloride Urine Total Protein Crossmatch 04/06/18 04/06/18 04/06/18 11:54 16:40 21:14 WBC RBC Hgb Hct MCV MCH MCHC RDW Plt Count Lymph % (Auto) [place] % (Auto) Lymph # [place] # Seg Neutrophils % Seg Neuts % (Manual) Lymphocytes % (Manual) Monocytes % (Manual) Seg Neutrophils # Lymphocytes # (Manual) Monocytes # (Manual) POC ABG pH POC ABG pCO2 POC ABG pO2 VBG pH Sodium Potassium Chloride Carbon Dioxide BUN Creatinine Glucose POC Glucose 177 H 188 H 336 H Hemoglobin A1c Lactic Acid Calcium Phosphorus TIBC Transferrin Ferritin AST Total Creatine Kinase Troponin T NT-Pro-B Natriuret Pep Total Protein Albumin Triglycerides Cholesterol LDL Cholesterol Direct Urine Creatinine Urine Microalbumin Urine Chloride Urine Total Protein Crossmatch 04/07/18 04/07/18 04/07/18 05:46 05:46 05:46 WBC RBC 2.92 L Hgb 8.2 L Hct 25.0 L MCV MCH MCHC RDW Plt Count Lymph % (Auto) [place] % (Auto) 12.9 H Lymph # 1.1 L [place] # Seg Neutrophils % Seg Neuts % (Manual) Lymphocytes % (Manual) Monocytes % (Manual) Seg Neutrophils # Lymphocytes # (Manual) Monocytes # (Manual) POC ABG pH POC ABG pCO2 POC ABG pO2 VBG pH Sodium 131 L D Potassium Chloride 96.6 L Carbon Dioxide 19 L BUN 26 H Creatinine 2.7 H Glucose 247 H POC Glucose Hemoglobin A1c Lactic Acid Calcium 7.7 L Phosphorus TIBC Transferrin Ferritin AST Total Creatine Kinase Troponin T NT-Pro-B Natriuret Pep 1858 H Total Protein Albumin Triglycerides Cholesterol LDL Cholesterol Direct Urine Creatinine Urine Microalbumin Urine Chloride Urine Total Protein Crossmatch 04/07/18 04/07/18 04/07/18 06:00 11:31 14:00 WBC RBC Hgb Hct MCV MCH MCHC RDW Plt Count Lymph % (Auto) [place] % (Auto) Lymph # [place] # Seg Neutrophils % Seg Neuts % (Manual) Lymphocytes % (Manual) Monocytes % (Manual) Seg Neutrophils # Lymphocytes # (Manual) Monocytes # (Manual) POC ABG pH POC ABG pCO2 POC ABG pO2 VBG pH Sodium Potassium Chloride Carbon Dioxide BUN Creatinine Glucose POC Glucose 288 H 373 H Hemoglobin A1c Lactic Acid Calcium Phosphorus TIBC Transferrin Ferritin AST Total Creatine Kinase Troponin T NT-Pro-B Natriuret Pep Total Protein Albumin Triglycerides Cholesterol LDL Cholesterol Direct Urine Creatinine 76.8 H Urine Microalbumin Urine Chloride 91.4 L Urine Total Protein Crossmatch 04/07/18 04/07/18 04/07/18 16:12 18:32 22:00 WBC RBC Hgb Hct MCV MCH MCHC RDW Plt Count Lymph % (Auto) [place] % (Auto) Lymph # [place] # Seg Neutrophils % Seg Neuts % (Manual) Lymphocytes % (Manual) Monocytes % (Manual) Seg Neutrophils # Lymphocytes # (Manual) Monocytes # (Manual) POC ABG pH POC ABG pCO2 POC ABG pO2 VBG pH Sodium Potassium Chloride Carbon Dioxide BUN Creatinine Glucose POC Glucose 280 H 269 H 145 H Hemoglobin A1c Lactic Acid Calcium Phosphorus TIBC Transferrin Ferritin AST Total Creatine Kinase Troponin T NT-Pro-B Natriuret Pep Total Protein Albumin Triglycerides Cholesterol LDL Cholesterol Direct Urine Creatinine Urine Microalbumin Urine Chloride Urine Total Protein Crossmatch 04/08/18 04/08/18 04/08/18 05:38 05:38 06:08 WBC RBC 2.76 L Hgb 7.8 L Hct 23.7 L MCV MCH MCHC RDW Plt Count Lymph % (Auto) [place] % (Auto) 14.7 H Lymph # [place] # 0.9 H Seg Neutrophils % Seg Neuts % (Manual) Lymphocytes % (Manual) Monocytes % (Manual) Seg Neutrophils # Lymphocytes # (Manual) Monocytes # (Manual) POC ABG pH POC ABG pCO2 POC ABG pO2 VBG pH Sodium 146 H D Potassium Chloride 113.3 H Carbon Dioxide 21 L BUN 28 H Creatinine 3.2 H Glucose 113 H POC Glucose 119 H Hemoglobin A1c Lactic Acid Calcium 8.0 L Phosphorus TIBC Transferrin Ferritin AST Total Creatine Kinase Troponin T NT-Pro-B Natriuret Pep Total Protein 6.0 L Albumin 2.9 L Triglycerides Cholesterol LDL Cholesterol Direct Urine Creatinine Urine Microalbumin Urine Chloride Urine Total Protein Crossmatch 04/08/18 04/08/18 04/08/18 12:00 17:07 17:30 WBC RBC Hgb Hct MCV MCH MCHC RDW Plt Count Lymph % (Auto) [place] % (Auto) Lymph # [place] # Seg Neutrophils % Seg Neuts % (Manual) Lymphocytes % (Manual) Monocytes % (Manual) Seg Neutrophils # Lymphocytes # (Manual) Monocytes # (Manual) POC ABG pH POC ABG pCO2 POC ABG pO2 VBG pH Sodium Potassium Chloride Carbon Dioxide BUN Creatinine Glucose POC Glucose 232 H 230 H Hemoglobin A1c Lactic Acid Calcium Phosphorus TIBC Transferrin Ferritin AST Total Creatine Kinase Troponin T NT-Pro-B Natriuret Pep Total Protein Albumin Triglycerides Cholesterol LDL Cholesterol Direct Urine Creatinine 63.0 H Urine Microalbumin 206.9 H Urine Chloride Urine Total Protein 288 H Crossmatch 04/08/18 04/09/18 04/09/18 21:06 06:47 10:08 WBC RBC Hgb Hct MCV MCH MCHC RDW Plt Count Lymph % (Auto) [place] % (Auto) Lymph # [place] # Seg Neutrophils % Seg Neuts % (Manual) Lymphocytes % (Manual) Monocytes % (Manual) Seg Neutrophils # Lymphocytes # (Manual) Monocytes # (Manual) POC ABG pH POC ABG pCO2 POC ABG pO2 VBG pH Sodium Potassium Chloride 107.9 H Carbon Dioxide 21 L BUN 29 H Creatinine 3.1 H Glucose POC Glucose 243 H 54 L Hemoglobin A1c Lactic Acid Calcium 7.9 L Phosphorus TIBC Transferrin Ferritin AST Total Creatine Kinase Troponin T NT-Pro-B Natriuret Pep Total Protein Albumin Triglycerides Cholesterol LDL Cholesterol Direct Urine Creatinine Urine Microalbumin Urine Chloride Urine Total Protein Crossmatch 04/09/18 04/09/18 04/09/18 12:11 16:25 21:14 WBC RBC Hgb Hct MCV MCH MCHC RDW Plt Count Lymph % (Auto) [place] % (Auto) Lymph # [place] # Seg Neutrophils % Seg Neuts % (Manual) Lymphocytes % (Manual) Monocytes % (Manual) Seg Neutrophils # Lymphocytes # (Manual) Monocytes # (Manual) POC ABG pH POC ABG pCO2 POC ABG pO2 VBG pH Sodium Potassium Chloride Carbon Dioxide BUN Creatinine Glucose POC Glucose 108 H 235 H 224 H Hemoglobin A1c Lactic Acid Calcium Phosphorus TIBC Transferrin Ferritin AST Total Creatine Kinase Troponin T NT-Pro-B Natriuret Pep Total Protein Albumin Triglycerides Cholesterol LDL Cholesterol Direct Urine Creatinine Urine Microalbumin Urine Chloride Urine Total Protein Crossmatch 04/10/18 04/10/18 04/10/18 06:33 09:05 11:12 WBC RBC 2.96 L Hgb 8.4 L Hct 25.7 L MCV MCH MCHC RDW Plt Count Lymph % (Auto) [place] % (Auto) 13.4 H Lymph # 0.9 L [place] # Seg Neutrophils % Seg Neuts % (Manual) Lymphocytes % (Manual) Monocytes % (Manual) Seg Neutrophils # Lymphocytes # (Manual) Monocytes # (Manual) POC ABG pH POC ABG pCO2 POC ABG pO2 VBG pH Sodium Potassium Chloride Carbon Dioxide 20 L BUN 31 H Creatinine 3.1 H Glucose 145 H POC Glucose 112 H Hemoglobin A1c Lactic Acid Calcium 7.9 L Phosphorus TIBC Transferrin Ferritin AST Total Creatine Kinase Troponin T NT-Pro-B Natriuret Pep Total Protein Albumin Triglycerides Cholesterol LDL Cholesterol Direct Urine Creatinine Urine Microalbumin Urine Chloride Urine Total Protein Crossmatch 04/10/18 04/10/1818 11:57 21:05 21:39 WBC RBC Hgb Hct MCV MCH MCHC RDW Plt Count Lymph % (Auto) [place] % (Auto) Lymph # [place] # Seg Neutrophils % Seg Neuts % (Manual) Lymphocytes % (Manual) Monocytes % (Manual) Seg Neutrophils # Lymphocytes # (Manual) Monocytes # (Manual) POC ABG pH POC ABG pCO2 POC ABG pO2 VBG pH Sodium Potassium Chloride Carbon Dioxide BUN Creatinine Glucose 67 L POC Glucose 212 H < 40 L Hemoglobin A1c Lactic Acid Calcium Phosphorus TIBC Transferrin Ferritin AST Total Creatine Kinase Troponin T NT-Pro-B Natriuret Pep Total Protein Albumin Triglycerides Cholesterol LDL Cholesterol Direct Urine Creatinine Urine Microalbumin Urine Chloride Urine Total Protein Crossmatch 04/10/18 04/11/18 04/11/18 21:42 05:20 05:20 WBC RBC 2.93 L Hgb 8.1 L Hct 25.1 L MCV MCH MCHC RDW Plt Count Lymph % (Auto) [place] % (Auto) 13.5 H Lymph # 0.9 L [place] # Seg Neutrophils % Seg Neuts % (Manual) Lymphocytes % (Manual) Monocytes % (Manual) Seg Neutrophils # Lymphocytes # (Manual) Monocytes # (Manual) POC ABG pH POC ABG pCO2 POC ABG pO2 VBG pH Sodium Potassium 5.1 H Chloride Carbon Dioxide 21 L BUN 30 H Creatinine 2.9 H Glucose 286 H POC Glucose 126 H Hemoglobin A1c Lactic Acid Calcium 7.5 L Phosphorus TIBC Transferrin Ferritin AST Total Creatine Kinase Troponin T NT-Pro-B Natriuret Pep Total Protein Albumin Triglycerides Cholesterol LDL Cholesterol Direct Urine Creatinine Urine Microalbumin Urine Chloride Urine Total Protein Crossmatch 04/11/18 05:28 WBC RBC Hgb Hct MCV MCH MCHC RDW Plt Count Lymph % (Auto) [place] % (Auto) Lymph # [place] # Seg Neutrophils % Seg Neuts % (Manual) Lymphocytes % (Manual) Monocytes % (Manual) Seg Neutrophils # Lymphocytes # (Manual) Monocytes # (Manual) POC ABG pH POC ABG pCO2 POC ABG pO2 VBG pH Sodium Potassium Chloride Carbon Dioxide BUN Creatinine Glucose POC Glucose 320 H Hemoglobin A1c Lactic Acid Calcium Phosphorus TIBC Transferrin Ferritin AST Total Creatine Kinase Troponin T NT-Pro-B Natriuret Pep Total Protein Albumin Triglycerides Cholesterol LDL Cholesterol Direct Urine Creatinine Urine Microalbumin Urine Chloride Urine Total Protein Crossmatch Allied health notes reviewed: nursing
--- NOTE | 2018-04-11 14:44 | Progress Note ---
Assessment and Plan Patient is awake at this time. Patient is on on room air .O2 saturation 97%. No acute respiratory distress. Patient afebrile. No leukocytosis. - Patient Problems (1) Acute respiratory failure Current Visit: Yes Status: Acute Qualifiers: Respiratory failure complication: hypoxia Qualified Code(s): J96.01 - Acute respiratory failure with hypoxia Plan to address problem: Improved. No complaint of shortness of breath.O2 saturation 97% on room air. (2) DKA (diabetic ketoacidoses) Current Visit: Yes Status: Acute Qualifiers: Diabetes mellitus type: type 1 Diabetes mellitus complication detail: with coma Qualified Code(s): E10.11 - Type 1 diabetes mellitus with ketoacidosis with coma Plan to address problem: Improving. Management as per primary care. (3) BELKIS (acute kidney injury) Current Visit: Yes Status: Acute Plan to address problem: Management as per primary care and nephrology. (4) Pulmonary infiltrate in left lung on chest x-ray Current Visit: Yes Status: Acute Plan to address problem: Patient is on zosyn Subjective Date of service: 04/11/18 Principal diagnosis: Acute hypoxic respiratory failure, DKA, BELKIS, Acute encephalopathy Interval history: Patient awake at this time. Patient is on on room air .O2 saturation 97%. No acute respiratory distress. Patient afebrile. No leukocytosis. Objective Vital Signs - 12hr 04/11/18 04/11/18 04/11/18 06:02 07:26 08:55 Temperature 99.0 F Pulse Rate 78 90 Respiratory 19 Rate Blood Pressure 184/84 193/85 193/85 O2 Sat by Pulse 93 Oximetry 04/11/18 04/11/18 04/11/18 10:35 10:43 10:44 Temperature Pulse Rate 77 78 78 Respiratory Rate Blood Pressure 180/81 180/81 180/81 O2 Sat by Pulse 93 Oximetry 04/11/18 04/11/18 04/11/18 14:06 14:13 14:14 Temperature Pulse Rate 74 Respiratory Rate Blood Pressure 158/74 158/74 158/74 O2 Sat by Pulse 94 Oximetry Constitutional: no acute distress, other (middle aged AAM, normocephalic and atraumatic) Eyes: non-icteric ENT: oropharynx moist, other (mallampatti 2) Neck: supple, no lymphadenopathy, no JVD, other (no thyromegaly) Effort: normal Ascultation: Bilateral: diminished breath sounds, rhonchi (posterior base) Percussion: Bilateral: not dull Cardiovascular: regular rate and rhythm, other (No R/M) Gastrointestinal: normoactive bowel sounds, soft, non-tender, non-distended, other ( No HSM) Integumentary: normal Extremities: no cyanosis, pulses normal, no ischemia or petechiae, edema (to hands) Neurologic: normal mental status, non-focal exam (grossly), pupils equal and round, CN II-XII normal, motor strength normal and Psychiatric: mood appropriate, affect normal CBC and BMP: 04/11/18 05:20 04/11/18 05:20 ABG, PT/INR, D-dimer: ABG POC ABG pH 7.405 (7.35-7.45) 03/28/18 03:49 POC ABG pCO2 38.6 (35-45) 03/28/18 03:49 POC ABG pO2 102 (80-105) 03/28/18 03:49 POC ABG HCO3 24.2 03/28/18 03:49 POC ABG Total CO2 25 03/28/18 03:49 POC ABG O2 Sat 98 03/28/18 03:49 Abnormal lab findings: Abnormal Labs 03/25/18 03/25/18 03/25/18 13:48 14:00 14:00 WBC 15.3 H RBC Hgb 10.5 L Hct MCV 95 H MCH 27 L MCHC 28 L RDW Plt Count Lymph % (Auto) 8.5 L [place] % (Auto) Lymph # [place] # Seg Neutrophils % 86.4 H Seg Neuts % (Manual) Lymphocytes % (Manual) Monocytes % (Manual) Seg Neutrophils # 13.2 H Lymphocytes # (Manual) Monocytes # (Manual) POC ABG pH POC ABG pCO2 POC ABG pO2 VBG pH Sodium 132 L Potassium 8.1 H* Chloride 87.8 L Carbon Dioxide 3 L* BUN 43 H Creatinine 2.6 H Glucose 1026 H* POC Glucose > 500 H Hemoglobin A1c Lactic Acid Calcium Phosphorus TIBC Transferrin Ferritin AST Total Creatine Kinase Troponin T NT-Pro-B Natriuret Pep Total Protein Albumin Triglycerides Cholesterol LDL Cholesterol Direct Urine Creatinine Urine Microalbumin Urine Chloride Urine Total Protein Crossmatch 03/25/18 03/25/18 03/25/18 14:00 14:08 14:29 WBC RBC Hgb Hct MCV MCH MCHC RDW Plt Count Lymph % (Auto) [place] % (Auto) Lymph # [place] # Seg Neutrophils % Seg Neuts % (Manual) Lymphocytes % (Manual) Monocytes % (Manual) Seg Neutrophils # Lymphocytes # (Manual) Monocytes # (Manual) POC ABG pH 6.952 L POC ABG pCO2 25.8 L POC ABG pO2 559 H VBG pH Sodium Potassium Chloride Carbon Dioxide BUN Creatinine Glucose POC Glucose Hemoglobin A1c Lactic Acid 10.10 H* Calcium Phosphorus 8.70 H TIBC Transferrin Ferritin AST Total Creatine Kinase Troponin T NT-Pro-B Natriuret Pep Total Protein Albumin 2.6 L Triglycerides Cholesterol LDL Cholesterol Direct Urine Creatinine Urine Microalbumin Urine Chloride Urine Total Protein Crossmatch 03/25/18 03/25/18 03/25/18 14:41 15:40 15:40 WBC RBC Hgb Hct MCV MCH MCHC RDW Plt Count Lymph % (Auto) [place] % (Auto) Lymph # [place] # Seg Neutrophils % Seg Neuts % (Manual) Lymphocytes % (Manual) Monocytes % (Manual) Seg Neutrophils # Lymphocytes # (Manual) Monocytes # (Manual) POC ABG pH POC ABG pCO2 POC ABG pO2 VBG pH 7.000 L* Sodium Potassium 6.7 H* Chloride 97.5 L Carbon Dioxide 5 L* BUN 43 H Creatinine 2.5 H Glucose 893 H* POC Glucose Hemoglobin A1c Lactic Acid Calcium 7.5 L Phosphorus 9.10 H TIBC Transferrin Ferritin AST Total Creatine Kinase Troponin T NT-Pro-B Natriuret Pep Total Protein Albumin Triglycerides Cholesterol LDL Cholesterol Direct Urine Creatinine Urine Microalbumin Urine Chloride Urine Total Protein Crossmatch 03/25/18 03/25/18 03/25/18 18:09 18:12 18:55 WBC RBC Hgb Hct MCV MCH MCHC RDW Plt Count Lymph % (Auto) [place] % (Auto) Lymph # [place] # Seg Neutrophils % Seg Neuts % (Manual) Lymphocytes % (Manual) Monocytes % (Manual) Seg Neutrophils # Lymphocytes # (Manual) Monocytes # (Manual) POC ABG pH POC ABG pCO2 POC ABG pO2 VBG pH Sodium 133 L Potassium 5.7 H Chloride 93.1 L Carbon Dioxide 10 L BUN 43 H Creatinine 2.5 H Glucose 786 H* POC Glucose Hemoglobin A1c 8.9 H Lactic Acid Calcium 7.8 L Phosphorus TIBC Transferrin Ferritin AST Total Creatine Kinase 226 H Troponin T 0.033 H NT-Pro-B Natriuret Pep Total Protein Albumin Triglycerides 185 H Cholesterol 215 H LDL Cholesterol Direct 144 H Urine Creatinine Urine Microalbumin Urine Chloride Urine Total Protein Crossmatch 03/25/18 03/25/18 03/25/18 18:55 21:00 21:03 WBC RBC Hgb Hct MCV MCH MCHC RDW Plt Count Lymph % (Auto) [place] % (Auto) Lymph # [place] # Seg Neutrophils % Seg Neuts % (Manual) Lymphocytes % (Manual) Monocytes % (Manual) Seg Neutrophils # Lymphocytes # (Manual) Monocytes # (Manual) POC ABG pH POC ABG pCO2 POC ABG pO2 VBG pH Sodium 136 L Potassium 6.7 H* Chloride Carbon Dioxide 7 L* BUN 45 H Creatinine 2.6 H Glucose 879 H* POC Glucose > 500 H Hemoglobin A1c Lactic Acid Calcium 7.8 L Phosphorus 9.20 H TIBC Transferrin Ferritin AST Total Creatine Kinase Troponin T NT-Pro-B Natriuret Pep Total Protein Albumin Triglycerides Cholesterol LDL Cholesterol Direct Urine Creatinine Urine Microalbumin Urine Chloride Urine Total Protein Crossmatch 03/25/18 03/25/18 03/25/18 21:39 22:06 23:20 WBC RBC Hgb Hct MCV MCH MCHC RDW Plt Count Lymph % (Auto) [place] % (Auto) Lymph # [place] # Seg Neutrophils % Seg Neuts % (Manual) Lymphocytes % (Manual) Monocytes % (Manual) Seg Neutrophils # Lymphocytes # (Manual) Monocytes # (Manual) POC ABG pH 7.272 L POC ABG pCO2 14.2 L POC ABG pO2 263 H VBG pH Sodium Potassium Chloride Carbon Dioxide 7 L* BUN 47 H Creatinine 2.9 H Glucose 702 H* POC Glucose > 500 H Hemoglobin A1c Lactic Acid Calcium 7.6 L Phosphorus TIBC Transferrin Ferritin AST Total Creatine Kinase Troponin T NT-Pro-B Natriuret Pep Total Protein Albumin Triglycerides Cholesterol LDL Cholesterol Direct Urine Creatinine Urine Microalbumin Urine Chloride Urine Total Protein Crossmatch 03/25/18 03/26/18 03/26/18 23:20 00:17 01:08 WBC RBC Hgb Hct MCV MCH MCHC RDW Plt Count Lymph % (Auto) [place] % (Auto) Lymph # [place] # Seg Neutrophils % Seg Neuts % (Manual) Lymphocytes % (Manual) Monocytes % (Manual) Seg Neutrophils # Lymphocytes # (Manual) Monocytes # (Manual) POC ABG pH POC ABG pCO2 POC ABG pO2 VBG pH Sodium Potassium Chloride Carbon Dioxide BUN Creatinine Glucose POC Glucose > 500 H 447 H 484 H Hemoglobin A1c Lactic Acid Calcium Phosphorus TIBC Transferrin Ferritin AST Total Creatine Kinase Troponin T NT-Pro-B Natriuret Pep Total Protein Albumin Triglycerides Cholesterol LDL Cholesterol Direct Urine Creatinine Urine Microalbumin Urine Chloride Urine Total Protein Crossmatch 03/26/18 03/26/18 03/26/18 02:31 03:07 04:09 WBC RBC Hgb Hct MCV MCH MCHC RDW Plt Count Lymph % (Auto) [place] % (Auto) Lymph # [place] # Seg Neutrophils % Seg Neuts % (Manual) Lymphocytes % (Manual) Monocytes % (Manual) Seg Neutrophils # Lymphocytes # (Manual) Monocytes # (Manual) POC ABG pH POC ABG pCO2 POC ABG pO2 VBG pH Sodium Potassium Chloride Carbon Dioxide BUN Creatinine Glucose POC Glucose > 500 H 467 H 361 H Hemoglobin A1c Lactic Acid Calcium Phosphorus TIBC Transferrin Ferritin AST Total Creatine Kinase Troponin T NT-Pro-B Natriuret Pep Total Protein Albumin Triglycerides Cholesterol LDL Cholesterol Direct Urine Creatinine Urine Microalbumin Urine Chloride Urine Total Protein Crossmatch 03/26/18 03/26/18 03/26/18 04:25 05:24 06:19 WBC RBC Hgb Hct MCV MCH MCHC RDW Plt Count Lymph % (Auto) [place] % (Auto) Lymph # [place] # Seg Neutrophils % Seg Neuts % (Manual) Lymphocytes % (Manual) Monocytes % (Manual) Seg Neutrophils # Lymphocytes # (Manual) Monocytes # (Manual) POC ABG pH POC ABG pCO2 POC ABG pO2 VBG pH Sodium 150 H D Potassium 3.4 L D Chloride 118.3 H Carbon Dioxide 16 L D BUN 45 H Creatinine 2.7 H Glucose 278 H POC Glucose 306 H 188 H Hemoglobin A1c Lactic Acid Calcium 7.7 L Phosphorus TIBC Transferrin Ferritin AST Total Creatine Kinase Troponin T NT-Pro-B Natriuret Pep Total Protein Albumin Triglycerides Cholesterol LDL Cholesterol Direct Urine Creatinine Urine Microalbumin Urine Chloride Urine Total Protein Crossmatch 03/26/18 03/26/18 03/26/18 07:09 08:20 09:12 WBC RBC Hgb Hct MCV MCH MCHC RDW Plt Count Lymph % (Auto) [place] % (Auto) Lymph # [place] # Seg Neutrophils % Seg Neuts % (Manual) Lymphocytes % (Manual) Monocytes % (Manual) Seg Neutrophils # Lymphocytes # (Manual) Monocytes # (Manual) POC ABG pH 7.530 H POC ABG pCO2 22.0 L POC ABG pO2 147 H VBG pH Sodium Potassium Chloride Carbon Dioxide BUN Creatinine Glucose POC Glucose 148 H 170 H Hemoglobin A1c Lactic Acid Calcium Phosphorus TIBC Transferrin Ferritin AST Total Creatine Kinase Troponin T NT-Pro-B Natriuret Pep Total Protein Albumin Triglycerides Cholesterol LDL Cholesterol Direct Urine Creatinine Urine Microalbumin Urine Chloride Urine Total Protein Crossmatch 03/26/18 03/26/18 03/26/18 09:15 10:30 10:46 WBC RBC Hgb Hct MCV MCH MCHC RDW Plt Count Lymph % (Auto) [place] % (Auto) Lymph # [place] # Seg Neutrophils % Seg Neuts % (Manual) Lymphocytes % (Manual) Monocytes % (Manual) Seg Neutrophils # Lymphocytes # (Manual) Monocytes # (Manual) POC ABG pH POC ABG pCO2 POC ABG pO2 VBG pH Sodium 152 H Potassium 3.1 L Chloride 121.4 H Carbon Dioxide BUN 43 H Creatinine 2.6 H Glucose 105 H POC Glucose 177 H 125 H Hemoglobin A1c Lactic Acid Calcium 7.5 L Phosphorus TIBC Transferrin Ferritin AST Total Creatine Kinase Troponin T NT-Pro-B Natriuret Pep Total Protein Albumin Triglycerides Cholesterol LDL Cholesterol Direct Urine Creatinine Urine Microalbumin Urine Chloride Urine Total Protein Crossmatch 03/26/18 03/26/18 03/26/18 14:57 15:35 18:12 WBC RBC Hgb Hct MCV MCH MCHC RDW Plt Count Lymph % (Auto) [place] % (Auto) Lymph # [place] # Seg Neutrophils % Seg Neuts % (Manual) Lymphocytes % (Manual) Monocytes % (Manual) Seg Neutrophils # Lymphocytes # (Manual) Monocytes # (Manual) POC ABG pH POC ABG pCO2 POC ABG pO2 VBG pH Sodium 148 H Potassium Chloride 117.5 H Carbon Dioxide 18 L BUN 43 H Creatinine 2.5 H Glucose 135 H POC Glucose 159 H 245 H Hemoglobin A1c Lactic Acid Calcium 7.3 L Phosphorus TIBC Transferrin Ferritin AST Total Creatine Kinase Troponin T NT-Pro-B Natriuret Pep Total Protein Albumin Triglycerides Cholesterol LDL Cholesterol Direct Urine Creatinine Urine Microalbumin Urine Chloride Urine Total Protein Crossmatch 03/26/18 03/26/18 03/27/18 19:27 21:42 02:03 WBC RBC Hgb Hct MCV MCH MCHC RDW Plt Count Lymph % (Auto) [place] % (Auto) Lymph # [place] # Seg Neutrophils % Seg Neuts % (Manual) Lymphocytes % (Manual) Monocytes % (Manual) Seg Neutrophils # Lymphocytes # (Manual) Monocytes # (Manual) POC ABG pH POC ABG pCO2 POC ABG pO2 VBG pH Sodium Potassium Chloride 115.0 H Carbon Dioxide 20 L BUN 42 H Creatinine 2.4 H Glucose 221 H POC Glucose 261 H 254 H Hemoglobin A1c Lactic Acid Calcium 7.1 L Phosphorus TIBC Transferrin Ferritin AST Total Creatine Kinase Troponin T NT-Pro-B Natriuret Pep Total Protein Albumin Triglycerides Cholesterol LDL Cholesterol Direct Urine Creatinine Urine Microalbumin Urine Chloride Urine Total Protein Crossmatch 03/27/18 03/27/18 03/27/18 03:35 03:35 05:20 WBC 12.3 H RBC 3.05 L Hgb 8.3 L Hct 25.3 L D MCV 83 L MCH 27 L MCHC RDW Plt Count Lymph % (Auto) [place] % (Auto) 8.6 H Lymph # [place] # 1.1 H Seg Neutrophils % 76.5 H Seg Neuts % (Manual) Lymphocytes % (Manual) Monocytes % (Manual) Seg Neutrophils # 9.4 H Lymphocytes # (Manual) Monocytes # (Manual) POC ABG pH POC ABG pCO2 POC ABG pO2 VBG pH Sodium Potassium Chloride 112.6 H Carbon Dioxide BUN 36 H Creatinine 2.1 H Glucose 244 H POC Glucose 263 H Hemoglobin A1c Lactic Acid Calcium 7.1 L Phosphorus TIBC Transferrin Ferritin AST 44 H Total Creatine Kinase Troponin T NT-Pro-B Natriuret Pep Total Protein 5.1 L D Albumin 2.1 L Triglycerides Cholesterol LDL Cholesterol Direct Urine Creatinine Urine Microalbumin Urine Chloride Urine Total Protein Crossmatch 03/27/18 03/27/18 03/27/18 08:22 13:00 14:06 WBC RBC Hgb Hct MCV MCH MCHC RDW Plt Count Lymph % (Auto) [place] % (Auto) Lymph # [place] # Seg Neutrophils % Seg Neuts % (Manual) Lymphocytes % (Manual) Monocytes % (Manual) Seg Neutrophils # Lymphocytes # (Manual) Monocytes # (Manual) POC ABG pH POC ABG pCO2 34.7 L POC ABG pO2 VBG pH Sodium Potassium Chloride Carbon Dioxide BUN Creatinine Glucose POC Glucose 306 H 233 H Hemoglobin A1c Lactic Acid Calcium Phosphorus TIBC Transferrin Ferritin AST Total Creatine Kinase Troponin T NT-Pro-B Natriuret Pep Total Protein Albumin Triglycerides Cholesterol LDL Cholesterol Direct Urine Creatinine Urine Microalbumin Urine Chloride Urine Total Protein Crossmatch 03/27/18 03/27/18 03/27/18 16:15 18:11 21:44 WBC RBC Hgb Hct MCV MCH MCHC RDW Plt Count Lymph % (Auto) [place] % (Auto) Lymph # [place] # Seg Neutrophils % Seg Neuts % (Manual) Lymphocytes % (Manual) Monocytes % (Manual) Seg Neutrophils # Lymphocytes # (Manual) Monocytes # (Manual) POC ABG pH POC ABG pCO2 POC ABG pO2 VBG pH Sodium Potassium Chloride Carbon Dioxide BUN Creatinine Glucose POC Glucose 243 H 226 H 224 H Hemoglobin A1c Lactic Acid Calcium Phosphorus TIBC Transferrin Ferritin AST Total Creatine Kinase Troponin T NT-Pro-B Natriuret Pep Total Protein Albumin Triglycerides Cholesterol LDL Cholesterol Direct Urine Creatinine Urine Microalbumin Urine Chloride Urine Total Protein Crossmatch 03/28/18 03/28/18 03/28/18 02:07 04:35 04:35 WBC RBC Hgb Hct MCV MCH MCHC RDW Plt Count Lymph % (Auto) [place] % (Auto) Lymph # [place] # Seg Neutrophils % Seg Neuts % (Manual) Lymphocytes % (Manual) Monocytes % (Manual) Seg Neutrophils # Lymphocytes # (Manual) Monocytes # (Manual) POC ABG pH POC ABG pCO2 POC ABG pO2 VBG pH Sodium Potassium Chloride Carbon Dioxide BUN Creatinine Glucose POC Glucose 220 H Hemoglobin A1c Lactic Acid Calcium Phosphorus TIBC 115 L Transferrin 94 L Ferritin 412.1 H AST Total Creatine Kinase Troponin T NT-Pro-B Natriuret Pep Total Protein Albumin Triglycerides Cholesterol LDL Cholesterol Direct Urine Creatinine Urine Microalbumin Urine Chloride Urine Total Protein Crossmatch 03/28/18 03/28/18 03/28/18 05:27 09:52 10:59 WBC RBC 3.22 L Hgb 9.1 L Hct 26.8 L MCV 83 L MCH MCHC RDW Plt Count 134 L Lymph % (Auto) [place] % (Auto) Lymph # [place] # Seg Neutrophils % Seg Neuts % (Manual) Lymphocytes % (Manual) Monocytes % (Manual) Seg Neutrophils # Lymphocytes # (Manual) Monocytes # (Manual) POC ABG pH POC ABG pCO2 POC ABG pO2 VBG pH Sodium Potassium Chloride Carbon Dioxide BUN Creatinine Glucose POC Glucose 280 H 332 H Hemoglobin A1c Lactic Acid Calcium Phosphorus TIBC Transferrin Ferritin AST Total Creatine Kinase Troponin T NT-Pro-B Natriuret Pep Total Protein Albumin Triglycerides Cholesterol LDL Cholesterol Direct Urine Creatinine Urine Microalbumin Urine Chloride Urine Total Protein Crossmatch 03/28/18 03/28/18 03/28/18 10:59 14:39 17:47 WBC RBC Hgb Hct MCV MCH MCHC RDW Plt Count Lymph % (Auto) [place] % (Auto) Lymph # [place] # Seg Neutrophils % Seg Neuts % (Manual) Lymphocytes % (Manual) Monocytes % (Manual) Seg Neutrophils # Lymphocytes # (Manual) Monocytes # (Manual) POC ABG pH POC ABG pCO2 POC ABG pO2 VBG pH Sodium 136 L Potassium Chloride Carbon Dioxide BUN 29 H Creatinine Glucose 310 H POC Glucose 250 H 132 H Hemoglobin A1c Lactic Acid Calcium 7.0 L Phosphorus TIBC Transferrin Ferritin AST Total Creatine Kinase Troponin T NT-Pro-B Natriuret Pep Total Protein Albumin Triglycerides Cholesterol LDL Cholesterol Direct Urine Creatinine Urine Microalbumin Urine Chloride Urine Total Protein Crossmatch 03/29/18 03/29/18 03/29/18 01:49 04:23 05:45 WBC RBC 3.13 L Hgb 8.8 L Hct 25.8 L MCV 82 L MCH MCHC RDW 12.7 L Plt Count 132 L Lymph % (Auto) 10.8 L [place] % (Auto) 9.1 H Lymph # 1.0 L [place] # Seg Neutrophils % 79.1 H Seg Neuts % (Manual) Lymphocytes % (Manual) Monocytes % (Manual) Seg Neutrophils # Lymphocytes # (Manual) Monocytes # (Manual) POC ABG pH POC ABG pCO2 POC ABG pO2 VBG pH Sodium 134 L Potassium Chloride Carbon Dioxide BUN 27 H Creatinine Glucose 172 H POC Glucose 122 H Hemoglobin A1c Lactic Acid Calcium 7.1 L Phosphorus TIBC Transferrin Ferritin AST Total Creatine Kinase Troponin T NT-Pro-B Natriuret Pep Total Protein Albumin Triglycerides Cholesterol LDL Cholesterol Direct Urine Creatinine Urine Microalbumin Urine Chloride Urine Total Protein Crossmatch 03/29/18 03/29/18 03/29/18 05:57 09:19 13:09 WBC RBC Hgb Hct MCV MCH MCHC RDW Plt Count Lymph % (Auto) [place] % (Auto) Lymph # [place] # Seg Neutrophils % Seg Neuts % (Manual) Lymphocytes % (Manual) Monocytes % (Manual) Seg Neutrophils # Lymphocytes # (Manual) Monocytes # (Manual) POC ABG pH POC ABG pCO2 POC ABG pO2 VBG pH Sodium Potassium Chloride Carbon Dioxide BUN Creatinine Glucose POC Glucose 224 H 316 H 345 H Hemoglobin A1c Lactic Acid Calcium Phosphorus TIBC Transferrin Ferritin AST Total Creatine Kinase Troponin T NT-Pro-B Natriuret Pep Total Protein Albumin Triglycerides Cholesterol LDL Cholesterol Direct Urine Creatinine Urine Microalbumin Urine Chloride Urine Total Protein Crossmatch 03/29/18 03/29/18 03/29/18 16:27 22:26 22:36 WBC RBC Hgb Hct MCV MCH MCHC RDW Plt Count Lymph % (Auto) [place] % (Auto) Lymph # [place] # Seg Neutrophils % Seg Neuts % (Manual) Lymphocytes % (Manual) Monocytes % (Manual) Seg Neutrophils # Lymphocytes # (Manual) Monocytes # (Manual) POC ABG pH POC ABG pCO2 POC ABG pO2 VBG pH Sodium Potassium Chloride Carbon Dioxide BUN Creatinine Glucose POC Glucose 210 H < 40 L 172 H Hemoglobin A1c Lactic Acid Calcium Phosphorus TIBC Transferrin Ferritin AST Total Creatine Kinase Troponin T NT-Pro-B Natriuret Pep Total Protein Albumin Triglycerides Cholesterol LDL Cholesterol Direct Urine Creatinine Urine Microalbumin Urine Chloride Urine Total Protein Crossmatch 03/30/18 03/30/18 03/30/18 00:07 05:12 06:39 WBC RBC 2.95 L Hgb 8.3 L Hct 24.6 L MCV 83 L MCH MCHC RDW 12.9 L Plt Count Lymph % (Auto) [place] % (Auto) 13.5 H Lymph # [place] # 0.9 H Seg Neutrophils % Seg Neuts % (Manual) Lymphocytes % (Manual) Monocytes % (Manual) Seg Neutrophils # Lymphocytes # (Manual) Monocytes # (Manual) POC ABG pH POC ABG pCO2 POC ABG pO2 VBG pH Sodium Potassium Chloride Carbon Dioxide BUN Creatinine Glucose POC Glucose 69 L 213 H Hemoglobin A1c Lactic Acid Calcium Phosphorus TIBC Transferrin Ferritin AST Total Creatine Kinase Troponin T NT-Pro-B Natriuret Pep Total Protein Albumin Triglycerides Cholesterol LDL Cholesterol Direct Urine Creatinine Urine Microalbumin Urine Chloride Urine Total Protein Crossmatch 03/30/18 03/30/18 03/30/18 06:39 10:06 13:59 WBC RBC Hgb Hct MCV MCH MCHC RDW Plt Count Lymph % (Auto) [place] % (Auto) Lymph # [place] # Seg Neutrophils % Seg Neuts % (Manual) Lymphocytes % (Manual) Monocytes % (Manual) Seg Neutrophils # Lymphocytes # (Manual) Monocytes # (Manual) POC ABG pH POC ABG pCO2 POC ABG pO2 VBG pH Sodium 133 L Potassium 3.5 L D Chloride 95.6 L Carbon Dioxide BUN 34 H Creatinine Glucose 241 H POC Glucose 368 H 237 H Hemoglobin A1c Lactic Acid Calcium 7.3 L Phosphorus TIBC Transferrin Ferritin AST Total Creatine Kinase Troponin T NT-Pro-B Natriuret Pep Total Protein Albumin Triglycerides Cholesterol LDL Cholesterol Direct Urine Creatinine Urine Microalbumin Urine Chloride Urine Total Protein Crossmatch 03/30/18 03/30/18 03/30/18 16:39 20:47 21:30 WBC RBC Hgb Hct MCV MCH MCHC RDW Plt Count Lymph % (Auto) [place] % (Auto) Lymph # [place] # Seg Neutrophils % Seg Neuts % (Manual) Lymphocytes % (Manual) Monocytes % (Manual) Seg Neutrophils # Lymphocytes # (Manual) Monocytes # (Manual) POC ABG pH POC ABG pCO2 POC ABG pO2 VBG pH Sodium Potassium Chloride Carbon Dioxide BUN Creatinine Glucose POC Glucose 176 H 60 L 113 H Hemoglobin A1c Lactic Acid Calcium Phosphorus TIBC Transferrin Ferritin AST Total Creatine Kinase Troponin T NT-Pro-B Natriuret Pep Total Protein Albumin Triglycerides Cholesterol LDL Cholesterol Direct Urine Creatinine Urine Microalbumin Urine Chloride Urine Total Protein Crossmatch 03/31/18 03/31/18 03/31/18 02:07 06:45 07:24 WBC RBC 3.06 L Hgb 8.6 L Hct 25.3 L MCV 83 L MCH MCHC RDW 12.7 L Plt Count Lymph % (Auto) [place] % (Auto) Lymph # [place] # Seg Neutrophils % Seg Neuts % (Manual) 73.0 H Lymphocytes % (Manual) 6.0 L Monocytes % (Manual) 21.0 H Seg Neutrophils # Lymphocytes # (Manual) 0.4 L Monocytes # (Manual) 1.4 H POC ABG pH POC ABG pCO2 POC ABG pO2 VBG pH Sodium Potassium Chloride Carbon Dioxide BUN Creatinine Glucose POC Glucose 140 H 260 H Hemoglobin A1c Lactic Acid Calcium Phosphorus TIBC Transferrin Ferritin AST Total Creatine Kinase Troponin T NT-Pro-B Natriuret Pep Total Protein Albumin Triglycerides Cholesterol LDL Cholesterol Direct Urine Creatinine Urine Microalbumin Urine Chloride Urine Total Protein Crossmatch 03/31/18 03/31/18 03/31/18 07:24 11:51 13:08 WBC RBC Hgb Hct MCV MCH MCHC RDW Plt Count Lymph % (Auto) [place] % (Auto) Lymph # [place] # Seg Neutrophils % Seg Neuts % (Manual) Lymphocytes % (Manual) Monocytes % (Manual) Seg Neutrophils # Lymphocytes # (Manual) Monocytes # (Manual) POC ABG pH POC ABG pCO2 POC ABG pO2 VBG pH Sodium 134 L Potassium Chloride Carbon Dioxide BUN 36 H Creatinine 1.8 H Glucose 271 H POC Glucose > 500 H > 500 H Hemoglobin A1c Lactic Acid Calcium 7.3 L Phosphorus TIBC Transferrin Ferritin AST Total Creatine Kinase Troponin T NT-Pro-B Natriuret Pep Total Protein Albumin Triglycerides Cholesterol LDL Cholesterol Direct Urine Creatinine Urine Microalbumin Urine Chloride Urine Total Protein Crossmatch 03/31/18 03/31/18 03/31/18 14:00 16:15 16:29 WBC RBC Hgb Hct MCV MCH MCHC RDW Plt Count Lymph % (Auto) [place] % (Auto) Lymph # [place] # Seg Neutrophils % Seg Neuts % (Manual) Lymphocytes % (Manual) Monocytes % (Manual) Seg Neutrophils # Lymphocytes # (Manual) Monocytes # (Manual) POC ABG pH POC ABG pCO2 POC ABG pO2 VBG pH Sodium Potassium Chloride Carbon Dioxide BUN Creatinine Glucose POC Glucose > 500 H 405 H 424 H Hemoglobin A1c Lactic Acid Calcium Phosphorus TIBC Transferrin Ferritin AST Total Creatine Kinase Troponin T NT-Pro-B Natriuret Pep Total Protein Albumin Triglycerides Cholesterol LDL Cholesterol Direct Urine Creatinine Urine Microalbumin Urine Chloride Urine Total Protein Crossmatch 03/31/18 04/01/18 04/01/18 21:14 00:21 05:51 WBC RBC 2.55 L Hgb 7.1 L Hct 21.2 L MCV 83 L MCH MCHC RDW 12.5 L Plt Count Lymph % (Auto) [place] % (Auto) Lymph # [place] # Seg Neutrophils % Seg Neuts % (Manual) Lymphocytes % (Manual) Monocytes % (Manual) 22.0 H Seg Neutrophils # Lymphocytes # (Manual) Monocytes # (Manual) 1.1 H POC ABG pH POC ABG pCO2 POC ABG pO2 VBG pH Sodium Potassium Chloride Carbon Dioxide BUN Creatinine Glucose POC Glucose 393 H 384 H Hemoglobin A1c Lactic Acid Calcium Phosphorus TIBC Transferrin Ferritin AST Total Creatine Kinase Troponin T NT-Pro-B Natriuret Pep Total Protein Albumin Triglycerides Cholesterol LDL Cholesterol Direct Urine Creatinine Urine Microalbumin Urine Chloride Urine Total Protein Crossmatch 04/01/18 04/01/18 04/01/18 05:51 06:52 11:13 WBC RBC Hgb Hct MCV MCH MCHC RDW Plt Count Lymph % (Auto) [place] % (Auto) Lymph # [place] # Seg Neutrophils % Seg Neuts % (Manual) Lymphocytes % (Manual) Monocytes % (Manual) Seg Neutrophils # Lymphocytes # (Manual) Monocytes # (Manual) POC ABG pH POC ABG pCO2 POC ABG pO2 VBG pH Sodium Potassium Chloride Carbon Dioxide BUN 35 H Creatinine Glucose 120 H POC Glucose 114 H Hemoglobin A1c Lactic Acid Calcium 7.3 L Phosphorus TIBC Transferrin Ferritin AST Total Creatine Kinase Troponin T NT-Pro-B Natriuret Pep Total Protein Albumin Triglycerides Cholesterol LDL Cholesterol Direct Urine Creatinine Urine Microalbumin Urine Chloride Urine Total Protein Crossmatch See Detail 04/01/18 04/01/18 04/01/18 11:16 12:06 16:04 WBC RBC Hgb 7.3 L Hct 21.5 L MCV MCH MCHC RDW Plt Count Lymph % (Auto) [place] % (Auto) Lymph # [place] # Seg Neutrophils % Seg Neuts % (Manual) Lymphocytes % (Manual) Monocytes % (Manual) Seg Neutrophils # Lymphocytes # (Manual) Monocytes # (Manual) POC ABG pH POC ABG pCO2 POC ABG pO2 VBG pH Sodium Potassium Chloride Carbon Dioxide BUN Creatinine Glucose POC Glucose 223 H 225 H Hemoglobin A1c Lactic Acid Calcium Phosphorus TIBC Transferrin Ferritin AST Total Creatine Kinase Troponin T NT-Pro-B Natriuret Pep Total Protein Albumin Triglycerides Cholesterol LDL Cholesterol Direct Urine Creatinine Urine Microalbumin Urine Chloride Urine Total Protein Crossmatch 04/01/18 04/01/18 04/01/18 16:46 19:47 21:15 WBC RBC Hgb 7.7 L Hct 23.5 L MCV MCH MCHC RDW Plt Count Lymph % (Auto) [place] % (Auto) Lymph # [place] # Seg Neutrophils % Seg Neuts % (Manual) Lymphocytes % (Manual) Monocytes % (Manual) Seg Neutrophils # Lymphocytes # (Manual) Monocytes # (Manual) POC ABG pH POC ABG pCO2 POC ABG pO2 VBG pH Sodium Potassium Chloride Carbon Dioxide BUN Creatinine Glucose POC Glucose 219 H 380 H Hemoglobin A1c Lactic Acid Calcium Phosphorus TIBC Transferrin Ferritin AST Total Creatine Kinase Troponin T NT-Pro-B Natriuret Pep Total Protein Albumin Triglycerides Cholesterol LDL Cholesterol Direct Urine Creatinine Urine Microalbumin Urine Chloride Urine Total Protein Crossmatch 04/02/18 04/02/18 04/02/18 05:47 06:57 07:52 WBC RBC 2.80 L Hgb 7.7 L Hct 23.5 L MCV MCH MCHC RDW Plt Count Lymph % (Auto) [place] % (Auto) Lymph # [place] # Seg Neutrophils % Seg Neuts % (Manual) Lymphocytes % (Manual) Monocytes % (Manual) 25.0 H Seg Neutrophils # Lymphocytes # (Manual) 1.1 L Monocytes # (Manual) 1.3 H POC ABG pH POC ABG pCO2 POC ABG pO2 VBG pH Sodium Potassium Chloride Carbon Dioxide BUN Creatinine Glucose POC Glucose 49 L 111 H Hemoglobin A1c Lactic Acid Calcium Phosphorus TIBC Transferrin Ferritin AST Total Creatine Kinase Troponin T NT-Pro-B Natriuret Pep Total Protein Albumin Triglycerides Cholesterol LDL Cholesterol Direct Urine Creatinine Urine Microalbumin Urine Chloride Urine Total Protein Crossmatch 04/02/18 04/02/18 04/02/18 07:52 12:36 16:36 WBC RBC Hgb Hct MCV MCH MCHC RDW Plt Count Lymph % (Auto) [place] % (Auto) Lymph # [place] # Seg Neutrophils % Seg Neuts % (Manual) Lymphocytes % (Manual) Monocytes % (Manual) Seg Neutrophils # Lymphocytes # (Manual) Monocytes # (Manual) POC ABG pH POC ABG pCO2 POC ABG pO2 VBG pH Sodium Potassium Chloride Carbon Dioxide BUN 28 H Creatinine Glucose 115 H POC Glucose 259 H 297 H Hemoglobin A1c Lactic Acid Calcium 7.3 L Phosphorus TIBC Transferrin Ferritin AST Total Creatine Kinase Troponin T NT-Pro-B Natriuret Pep Total Protein Albumin Triglycerides Cholesterol LDL Cholesterol Direct Urine Creatinine Urine Microalbumin Urine Chloride Urine Total Protein Crossmatch 04/02/18 04/03/18 04/03/18 22:01 04:20 04:46 WBC RBC Hgb Hct MCV MCH MCHC RDW Plt Count Lymph % (Auto) [place] % (Auto) Lymph # [place] # Seg Neutrophils % Seg Neuts % (Manual) Lymphocytes % (Manual) Monocytes % (Manual) Seg Neutrophils # Lymphocytes # (Manual) Monocytes # (Manual) POC ABG pH POC ABG pCO2 POC ABG pO2 VBG pH Sodium Potassium Chloride Carbon Dioxide BUN Creatinine Glucose POC Glucose 206 H < 40 L 64 L Hemoglobin A1c Lactic Acid Calcium Phosphorus TIBC Transferrin Ferritin AST Total Creatine Kinase Troponin T NT-Pro-B Natriuret Pep Total Protein Albumin Triglycerides Cholesterol LDL Cholesterol Direct Urine Creatinine Urine Microalbumin Urine Chloride Urine Total Protein Crossmatch 04/03/18 04/03/18 04/03/18 05:46 05:46 05:57 WBC RBC 2.72 L Hgb 7.6 L Hct 22.4 L MCV 83 L MCH MCHC RDW Plt Count Lymph % (Auto) [place] % (Auto) Lymph # [place] # Seg Neutrophils % Seg Neuts % (Manual) Lymphocytes % (Manual) 13.0 L Monocytes % (Manual) 19.0 H Seg Neutrophils # Lymphocytes # (Manual) 0.9 L Monocytes # (Manual) 1.3 H POC ABG pH POC ABG pCO2 POC ABG pO2 VBG pH Sodium Potassium Chloride 110.7 H Carbon Dioxide BUN 24 H Creatinine Glucose 45 L POC Glucose < 40 L Hemoglobin A1c Lactic Acid Calcium 7.3 L Phosphorus TIBC Transferrin Ferritin AST Total Creatine Kinase Troponin T NT-Pro-B Natriuret Pep Total Protein Albumin Triglycerides Cholesterol LDL Cholesterol Direct Urine Creatinine Urine Microalbumin Urine Chloride Urine Total Protein Crossmatch 04/03/18 04/03/18 04/03/18 07:04 09:17 11:34 WBC RBC Hgb Hct MCV MCH MCHC RDW Plt Count Lymph % (Auto) [place] % (Auto) Lymph # [place] # Seg Neutrophils % Seg Neuts % (Manual) Lymphocytes % (Manual) Monocytes % (Manual) Seg Neutrophils # Lymphocytes # (Manual) Monocytes # (Manual) POC ABG pH POC ABG pCO2 POC ABG pO2 VBG pH Sodium Potassium Chloride Carbon Dioxide BUN Creatinine Glucose POC Glucose 44 L 107 H 196 H Hemoglobin A1c Lactic Acid Calcium Phosphorus TIBC Transferrin Ferritin AST Total Creatine Kinase Troponin T NT-Pro-B Natriuret Pep Total Protein Albumin Triglycerides Cholesterol LDL Cholesterol Direct Urine Creatinine Urine Microalbumin Urine Chloride Urine Total Protein Crossmatch 04/03/18 04/03/18 04/04/18 16:48 20:25 06:05 WBC RBC 2.49 L Hgb 6.9 L Hct 20.8 L MCV 83 L MCH MCHC RDW Plt Count Lymph % (Auto) [place] % (Auto) Lymph # [place] # Seg Neutrophils % Seg Neuts % (Manual) Lymphocytes % (Manual) Monocytes % (Manual) 23.0 H Seg Neutrophils # Lymphocytes # (Manual) 0.7 L Monocytes # (Manual) 1.2 H POC ABG pH POC ABG pCO2 POC ABG pO2 VBG pH Sodium Potassium Chloride Carbon Dioxide BUN Creatinine Glucose POC Glucose 251 H 211 H Hemoglobin A1c Lactic Acid Calcium Phosphorus TIBC Transferrin Ferritin AST Total Creatine Kinase Troponin T NT-Pro-B Natriuret Pep Total Protein Albumin Triglycerides Cholesterol LDL Cholesterol Direct Urine Creatinine Urine Microalbumin Urine Chloride Urine Total Protein Crossmatch 04/04/18 04/04/18 04/04/18 06:05 06:06 20:14 WBC RBC Hgb Hct MCV MCH MCHC RDW Plt Count Lymph % (Auto) [place] % (Auto) Lymph # [place] # Seg Neutrophils % Seg Neuts % (Manual) Lymphocytes % (Manual) Monocytes % (Manual) Seg Neutrophils # Lymphocytes # (Manual) Monocytes # (Manual) POC ABG pH POC ABG pCO2 POC ABG pO2 VBG pH Sodium Potassium Chloride 109.8 H Carbon Dioxide BUN 22 H Creatinine 1.7 H Glucose 260 H POC Glucose 312 H Hemoglobin A1c Lactic Acid Calcium 7.2 L Phosphorus TIBC Transferrin Ferritin AST Total Creatine Kinase Troponin T NT-Pro-B Natriuret Pep Total Protein Albumin Triglycerides Cholesterol LDL Cholesterol Direct Urine Creatinine Urine Microalbumin Urine Chloride Urine Total Protein Crossmatch See Detail 04/04/18 04/05/18 04/05/18 22:23 06:10 06:10 WBC RBC 2.97 L Hgb 8.6 L Hct 25.0 L MCV MCH MCHC RDW Plt Count Lymph % (Auto) [place] % (Auto) 15.9 H Lymph # [place] # 1.2 H Seg Neutrophils % Seg Neuts % (Manual) Lymphocytes % (Manual) Monocytes % (Manual) Seg Neutrophils # Lymphocytes # (Manual) Monocytes # (Manual) POC ABG pH POC ABG pCO2 POC ABG pO2 VBG pH Sodium Potassium Chloride 108.4 H Carbon Dioxide 20 L BUN Creatinine 1.9 H Glucose 42 L POC Glucose 116 H Hemoglobin A1c Lactic Acid Calcium 7.3 L Phosphorus TIBC Transferrin Ferritin AST Total Creatine Kinase Troponin T NT-Pro-B Natriuret Pep Total Protein 5.7 L Albumin 2.3 L Triglycerides Cholesterol LDL Cholesterol Direct Urine Creatinine Urine Microalbumin Urine Chloride Urine Total Protein Crossmatch 04/05/18 04/05/18 04/05/18 06:18 06:20 12:17 WBC RBC Hgb Hct MCV MCH MCHC RDW Plt Count Lymph % (Auto) [place] % (Auto) Lymph # [place] # Seg Neutrophils % Seg Neuts % (Manual) Lymphocytes % (Manual) Monocytes % (Manual) Seg Neutrophils # Lymphocytes # (Manual) Monocytes # (Manual) POC ABG pH POC ABG pCO2 POC ABG pO2 VBG pH Sodium Potassium Chloride Carbon Dioxide BUN Creatinine Glucose POC Glucose 44 L 123 H Hemoglobin A1c Lactic Acid Calcium Phosphorus TIBC Transferrin Ferritin AST Total Creatine Kinase Troponin T NT-Pro-B Natriuret Pep Total Protein Albumin Triglycerides Cholesterol LDL Cholesterol Direct Urine Creatinine 112.0 H Urine Microalbumin Urine Chloride Urine Total Protein Crossmatch 04/05/18 04/05/18 04/06/18 16:33 21:29 07:06 WBC RBC Hgb Hct MCV MCH MCHC RDW Plt Count Lymph % (Auto) [place] % (Auto) Lymph # [place] # Seg Neutrophils % Seg Neuts % (Manual) Lymphocytes % (Manual) Monocytes % (Manual) Seg Neutrophils # Lymphocytes # (Manual) Monocytes # (Manual) POC ABG pH POC ABG pCO2 POC ABG pO2 VBG pH Sodium Potassium Chloride Carbon Dioxide BUN Creatinine Glucose POC Glucose 268 H 207 H 42 L Hemoglobin A1c Lactic Acid Calcium Phosphorus TIBC Transferrin Ferritin AST Total Creatine Kinase Troponin T NT-Pro-B Natriuret Pep Total Protein Albumin Triglycerides Cholesterol LDL Cholesterol Direct Urine Creatinine Urine Microalbumin Urine Chloride Urine Total Protein Crossmatch 04/06/18 04/06/18 04/06/18 11:54 16:40 21:14 WBC RBC Hgb Hct MCV MCH MCHC RDW Plt Count Lymph % (Auto) [place] % (Auto) Lymph # [place] # Seg Neutrophils % Seg Neuts % (Manual) Lymphocytes % (Manual) Monocytes % (Manual) Seg Neutrophils # Lymphocytes # (Manual) Monocytes # (Manual) POC ABG pH POC ABG pCO2 POC ABG pO2 VBG pH Sodium Potassium Chloride Carbon Dioxide BUN Creatinine Glucose POC Glucose 177 H 188 H 336 H Hemoglobin A1c Lactic Acid Calcium Phosphorus TIBC Transferrin Ferritin AST Total Creatine Kinase Troponin T NT-Pro-B Natriuret Pep Total Protein Albumin Triglycerides Cholesterol LDL Cholesterol Direct Urine Creatinine Urine Microalbumin Urine Chloride Urine Total Protein Crossmatch 04/07/18 04/07/18 04/07/18 05:46 05:46 05:46 WBC RBC 2.92 L Hgb 8.2 L Hct 25.0 L MCV MCH MCHC RDW Plt Count Lymph % (Auto) [place] % (Auto) 12.9 H Lymph # 1.1 L [place] # Seg Neutrophils % Seg Neuts % (Manual) Lymphocytes % (Manual) Monocytes % (Manual) Seg Neutrophils # Lymphocytes # (Manual) Monocytes # (Manual) POC ABG pH POC ABG pCO2 POC ABG pO2 VBG pH Sodium 131 L D Potassium Chloride 96.6 L Carbon Dioxide 19 L BUN 26 H Creatinine 2.7 H Glucose 247 H POC Glucose Hemoglobin A1c Lactic Acid Calcium 7.7 L Phosphorus TIBC Transferrin Ferritin AST Total Creatine Kinase Troponin T NT-Pro-B Natriuret Pep 1858 H Total Protein Albumin Triglycerides Cholesterol LDL Cholesterol Direct Urine Creatinine Urine Microalbumin Urine Chloride Urine Total Protein Crossmatch 04/07/18 04/07/18 04/07/18 06:00 11:31 14:00 WBC RBC Hgb Hct MCV MCH MCHC RDW Plt Count Lymph % (Auto) [place] % (Auto) Lymph # [place] # Seg Neutrophils % Seg Neuts % (Manual) Lymphocytes % (Manual) Monocytes % (Manual) Seg Neutrophils # Lymphocytes # (Manual) Monocytes # (Manual) POC ABG pH POC ABG pCO2 POC ABG pO2 VBG pH Sodium Potassium Chloride Carbon Dioxide BUN Creatinine Glucose POC Glucose 288 H 373 H Hemoglobin A1c Lactic Acid Calcium Phosphorus TIBC Transferrin Ferritin AST Total Creatine Kinase Troponin T NT-Pro-B Natriuret Pep Total Protein Albumin Triglycerides Cholesterol LDL Cholesterol Direct Urine Creatinine 76.8 H Urine Microalbumin Urine Chloride 91.4 L Urine Total Protein Crossmatch 04/07/18 04/07/18 04/07/18 16:12 18:32 22:00 WBC RBC Hgb Hct MCV MCH MCHC RDW Plt Count Lymph % (Auto) [place] % (Auto) Lymph # [place] # Seg Neutrophils % Seg Neuts % (Manual) Lymphocytes % (Manual) Monocytes % (Manual) Seg Neutrophils # Lymphocytes # (Manual) Monocytes # (Manual) POC ABG pH POC ABG pCO2 POC ABG pO2 VBG pH Sodium Potassium Chloride Carbon Dioxide BUN Creatinine Glucose POC Glucose 280 H 269 H 145 H Hemoglobin A1c Lactic Acid Calcium Phosphorus TIBC Transferrin Ferritin AST Total Creatine Kinase Troponin T NT-Pro-B Natriuret Pep Total Protein Albumin Triglycerides Cholesterol LDL Cholesterol Direct Urine Creatinine Urine Microalbumin Urine Chloride Urine Total Protein Crossmatch 04/08/18 04/08/18 04/08/18 05:38 05:38 06:08 WBC RBC 2.76 L Hgb 7.8 L Hct 23.7 L MCV MCH MCHC RDW Plt Count Lymph % (Auto) [place] % (Auto) 14.7 H Lymph # [place] # 0.9 H Seg Neutrophils % Seg Neuts % (Manual) Lymphocytes % (Manual) Monocytes % (Manual) Seg Neutrophils # Lymphocytes # (Manual) Monocytes # (Manual) POC ABG pH POC ABG pCO2 POC ABG pO2 VBG pH Sodium 146 H D Potassium Chloride 113.3 H Carbon Dioxide 21 L BUN 28 H Creatinine 3.2 H Glucose 113 H POC Glucose 119 H Hemoglobin A1c Lactic Acid Calcium 8.0 L Phosphorus TIBC Transferrin Ferritin AST Total Creatine Kinase Troponin T NT-Pro-B Natriuret Pep Total Protein 6.0 L Albumin 2.9 L Triglycerides Cholesterol LDL Cholesterol Direct Urine Creatinine Urine Microalbumin Urine Chloride Urine Total Protein Crossmatch 04/08/18 04/08/18 04/08/18 12:00 17:07 17:30 WBC RBC Hgb Hct MCV MCH MCHC RDW Plt Count Lymph % (Auto) [place] % (Auto) Lymph # [place] # Seg Neutrophils % Seg Neuts % (Manual) Lymphocytes % (Manual) Monocytes % (Manual) Seg Neutrophils # Lymphocytes # (Manual) Monocytes # (Manual) POC ABG pH POC ABG pCO2 POC ABG pO2 VBG pH Sodium Potassium Chloride Carbon Dioxide BUN Creatinine Glucose POC Glucose 232 H 230 H Hemoglobin A1c Lactic Acid Calcium Phosphorus TIBC Transferrin Ferritin AST Total Creatine Kinase Troponin T NT-Pro-B Natriuret Pep Total Protein Albumin Triglycerides Cholesterol LDL Cholesterol Direct Urine Creatinine 63.0 H Urine Microalbumin 206.9 H Urine Chloride Urine Total Protein 288 H Crossmatch 04/08/18 04/09/18 04/09/18 21:06 06:47 10:08 WBC RBC Hgb Hct MCV MCH MCHC RDW Plt Count Lymph % (Auto) [place] % (Auto) Lymph # [place] # Seg Neutrophils % Seg Neuts % (Manual) Lymphocytes % (Manual) Monocytes % (Manual) Seg Neutrophils # Lymphocytes # (Manual) Monocytes # (Manual) POC ABG pH POC ABG pCO2 POC ABG pO2 VBG pH Sodium Potassium Chloride 107.9 H Carbon Dioxide 21 L BUN 29 H Creatinine 3.1 H Glucose POC Glucose 243 H 54 L Hemoglobin A1c Lactic Acid Calcium 7.9 L Phosphorus TIBC Transferrin Ferritin AST Total Creatine Kinase Troponin T NT-Pro-B Natriuret Pep Total Protein Albumin Triglycerides Cholesterol LDL Cholesterol Direct Urine Creatinine Urine Microalbumin Urine Chloride Urine Total Protein Crossmatch 04/09/18 04/09/18 04/09/18 12:11 16:25 21:14 WBC RBC Hgb Hct MCV MCH MCHC RDW Plt Count Lymph % (Auto) [place] % (Auto) Lymph # [place] # Seg Neutrophils % Seg Neuts % (Manual) Lymphocytes % (Manual) Monocytes % (Manual) Seg Neutrophils # Lymphocytes # (Manual) Monocytes # (Manual) POC ABG pH POC ABG pCO2 POC ABG pO2 VBG pH Sodium Potassium Chloride Carbon Dioxide BUN Creatinine Glucose POC Glucose 108 H 235 H 224 H Hemoglobin A1c Lactic Acid Calcium Phosphorus TIBC Transferrin Ferritin AST Total Creatine Kinase Troponin T NT-Pro-B Natriuret Pep Total Protein Albumin Triglycerides Cholesterol LDL Cholesterol Direct Urine Creatinine Urine Microalbumin Urine Chloride Urine Total Protein Crossmatch 04/10/18 04/10/18 04/10/18 06:33 09:05 11:12 WBC RBC 2.96 L Hgb 8.4 L Hct 25.7 L MCV MCH MCHC RDW Plt Count Lymph % (Auto) [place] % (Auto) 13.4 H Lymph # 0.9 L [place] # Seg Neutrophils % Seg Neuts % (Manual) Lymphocytes % (Manual) Monocytes % (Manual) Seg Neutrophils # Lymphocytes # (Manual) Monocytes # (Manual) POC ABG pH POC ABG pCO2 POC ABG pO2 VBG pH Sodium Potassium Chloride Carbon Dioxide 20 L BUN 31 H Creatinine 3.1 H Glucose 145 H POC Glucose 112 H Hemoglobin A1c Lactic Acid Calcium 7.9 L Phosphorus TIBC Transferrin Ferritin AST Total Creatine Kinase Troponin T NT-Pro-B Natriuret Pep Total Protein Albumin Triglycerides Cholesterol LDL Cholesterol Direct Urine Creatinine Urine Microalbumin Urine Chloride Urine Total Protein Crossmatch 04/10/18 04/10/18 04/10/18 11:57 21:05 21:39 WBC RBC Hgb Hct MCV MCH MCHC RDW Plt Count Lymph % (Auto) [place] % (Auto) Lymph # [place] # Seg Neutrophils % Seg Neuts % (Manual) Lymphocytes % (Manual) Monocytes % (Manual) Seg Neutrophils # Lymphocytes # (Manual) Monocytes # (Manual) POC ABG pH POC ABG pCO2 POC ABG pO2 VBG pH Sodium Potassium Chloride Carbon Dioxide BUN Creatinine Glucose 67 L POC Glucose 212 H < 40 L Hemoglobin A1c Lactic Acid Calcium Phosphorus TIBC Transferrin Ferritin AST Total Creatine Kinase Troponin T NT-Pro-B Natriuret Pep Total Protein Albumin Triglycerides Cholesterol LDL Cholesterol Direct Urine Creatinine Urine Microalbumin Urine Chloride Urine Total Protein Crossmatch 04/10/18 04/11/18 04/11/18 21:42 05:20 05:20 WBC RBC 2.93 L Hgb 8.1 L Hct 25.1 L MCV MCH MCHC RDW Plt Count Lymph % (Auto) [place] % (Auto) 13.5 H Lymph # 0.9 L [place] # Seg Neutrophils % Seg Neuts % (Manual) Lymphocytes % (Manual) Monocytes % (Manual) Seg Neutrophils # Lymphocytes # (Manual) Monocytes # (Manual) POC ABG pH POC ABG pCO2 POC ABG pO2 VBG pH Sodium Potassium 5.1 H Chloride Carbon Dioxide 21 L BUN 30 H Creatinine 2.9 H Glucose 286 H POC Glucose 126 H Hemoglobin A1c Lactic Acid Calcium 7.5 L Phosphorus TIBC Transferrin Ferritin AST Total Creatine Kinase Troponin T NT-Pro-B Natriuret Pep Total Protein Albumin Triglycerides Cholesterol LDL Cholesterol Direct Urine Creatinine Urine Microalbumin Urine Chloride Urine Total Protein Crossmatch 04/11/18 05:28 WBC RBC Hgb Hct MCV MCH MCHC RDW Plt Count Lymph % (Auto) [place] % (Auto) Lymph # [place] # Seg Neutrophils % Seg Neuts % (Manual) Lymphocytes % (Manual) Monocytes % (Manual) Seg Neutrophils # Lymphocytes # (Manual) Monocytes # (Manual) POC ABG pH POC ABG pCO2 POC ABG pO2 VBG pH Sodium Potassium Chloride Carbon Dioxide BUN Creatinine Glucose POC Glucose 320 H Hemoglobin A1c Lactic Acid Calcium Phosphorus TIBC Transferrin Ferritin AST Total Creatine Kinase Troponin T NT-Pro-B Natriuret Pep Total Protein Albumin Triglycerides Cholesterol LDL Cholesterol Direct Urine Creatinine Urine Microalbumin Urine Chloride Urine Total Protein Crossmatch Allied health notes reviewed: nursing
[2018-04-12] MEDS: HumuLIN R SUB-Q SCH ×5 (01:16→22:34)
[2018-04-12] MEDS: ZOSYN/NS 2.25 GM/50ML 2.25 GM/50 ML BAG IV SCH ×2 (01:17→05:53)
[2018-04-12 05:29] LABS: Hematocrit 23.5 % (35.5-45.6); Hemoglobin 7.8 gm/dl (11.8-15.2); Mean Corpuscular HGB Conc 33 % (32-34); Mean Corpuscular Hemoglobin 29 pg (28-32); Mean Corpuscular Volume 86 fl (84-94); Platelet Count 360 K/mm3 (140-440); Red Blood Count 2.75 M/mm3 (3.65-5.03); Red Cell Distribution Width 14.1 % (13.2-15.2)
[2018-04-12 05:51] LABS: Calcium 7.9 mg/dL (8.4-10.2)
[2018-04-12] MEDS: APRESOLINE PO SCH ×3 (05:53→22:32)
[2018-04-12 06:51] LABS: Basophils % (Manual) 0 % (0.0-1.8); Eosinophils % (Manual) 0 % (0.0-4.3); Total Cells Counted 100
[2018-04-12 06:52] LABS: Anisocytosis 1+; Hypochromasia Few
[2018-04-12] MEDS: CATAPRES PO SCH ×3 (08:51→21:04)
--- NOTE | 2018-04-12 10:37 | Progress Note ---
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 No consolidating pneumonia, suspect small pleural effusion or pleural effusions -Renally dose meds -Strict intake and output -S/p Albumin 25 g IVPB every 8 hours x 6 doses -Obtain daily weight -Beard Catheter: No -Intake= 650 ml Output= 500 ml ( Net= 150 ml) -Renal plan d/w Dr Adrian -Continue supportive therapy Acute Respiratory Failure: -Extubated -Pulmonology on board Essential Hypertension: -On clonidine, coreg, hydralazine, and minipress -Started on Minipress -Adjust medications as needed DKA: -Resolved Subjective Date of service: 04/12/18 Principal diagnosis: Acute hypoxic respiratory failure, DKA, BELKIS, Acute encephalopathy Interval history: Pt sitting up in the chair, bilateral leg edema, denies shortness of breath, no acute distress, no family at bedside Objective - Vital Signs Vital signs: Vital Signs - 12hr 04/12/18 04/12/18 04/12/18 05:53 07:30 08:51 Temperature 98.6 F Pulse Rate 66 69 Respiratory 19 Rate Blood Pressure 188/99 179/81 Blood Pressure 179/81 [Right] O2 Sat by Pulse 97 Oximetry - General Appearance General appearance: well-developed (no acute distress) EENT: ATNC Neck: no JVD Respiratory: Present: Decreased Breath Sounds Cardiology: regular, S1S2 Gastrointestinal: normoactive bowel sounds, no tenderness Integumentary: warm and dry Neurologic: alert and oriented x3 Musculoskeletal: other (1+ edema to both lower extremities) Psychiatric: cooperative - Lab 04/12/18 04:46 04/12/18 04:46 Most recent lab results Calcium 7.9 mg/dL (8.4-10.2) L 04/12/18 04:46 Phosphorus 3.80 mg/dL (2.5-4.5) 04/12/18 04:46 Magnesium 2.00 mg/dL (1.7-2.3) 04/08/18 05:38 Urine Creatinine 63.0 mg/dL (0.1-20.0) H 04/08/18 17:30 Urine Sodium 94 mmol/L 04/07/18 14:00 Urine Total Protein 288 mg/dL (5-11.8) H 04/08/18 17:30
[2018-04-12] MEDS: PEPCID PO SCH ×2 (11:06→22:33)
[2018-04-12] MEDS: PROzac PO SCH (11:06)
[2018-04-12] MEDS: BABY ASPIRIN PO SCH (11:07)
[2018-04-12] MEDS: LOVENOX SUB-Q SCH (11:07)
[2018-04-12] MEDS: COREG PO SCH ×2 (11:20→22:34)
[2018-04-12] MEDS: LASIX PO SCH (11:21)
[2018-04-12] MEDS: MINIPRESS PO SCH ×2 (11:21→22:32)
--- NOTE | 2018-04-12 12:53 | Progress Note ---
Assessment and Plan Assessment and plan: --BELKIS (acute kidney injury)secondary to prerenal azotemia versus ischemic ATN Due to ATN. However, patient may have some underlying CKD. Check AZALEA, ANCA, Anti-GBM, DsDNA Ab, SPEP, UPEP, Hepatitis panel, HIV, ASO, anti -de [place], C3, C4, CH50, immunofixation, free kappa/lambda light chains Continue lasix 40 mg qday per nephrology Renally dose meds Strict intake and output S/p Albumin 25 g IVPB every 8 hours x 6 doses Obtain daily weight --Malignant Hypertension;moderate control Continue current antihypertensives, clonidine, hydralazine , Coreg , Lasix and when necessary medications --Type 2 diabetes mellitus ;Labile blood sugars; patient noncompliant with diet , hb A1c 8.9 Accu-Chek sliding scale coverage and ADA diet. Cont 7030 insulin to 20 units twice a day --DKA (diabetic ketoacidoses); resolved Uncontrolled blood sugars, non-complaint, Accu-Cheks, insulin, ADA diet --anemia; s/p 2 units of PRBC, H&H is stable. stool guaiac-negative, GI evaluated ,out patient workup, --Bilateral upper extremity superficial venous thrombosis/cellulitis Vascular evaluated, supportive care --cellulitis upper extremities and blisters, Elevate the limb, empiric antibiotics, cultures negative, wound care, significantly improved ,LE venous Doppler negative for DVT. --Acute respiratory failure; intubated ,s/p extubation 03/28/18 saturating well on nasal cannula oxygen, evaluation for home oxygen and discharge --Severe hypoalbuminemia; severe malnutrition Nutrition consults, albumin infusions, supportive care --Depression; consult psych, patient denies suicidal thoughts or ideation --DVT prophylaxis ; Lovenox renal dose Plan of care reviewed with the patient and his nurse Closely monitor blood sugars Disposition; Physical therapy recommended home health PT History Interval history: No new issues overnight Hospitalist Physical - Constitutional Vitals: Temp Pulse Resp BP Pulse Ox 98.6 F 69 19 191/85 97 04/12/18 07:30 04/12/18 07:30 04/12/18 07:30 04/12/18 11:21 04/12/18 07:30 General appearance: Present: no acute distress, well-nourished, obese - EENT Eyes: Present: PERRL, EOM intact ENT: hearing intact, clear oral mucosa, dentition normal - Neck Neck: Present: supple, normal ROM - Respiratory Respiratory effort: normal Respiratory: bilateral: CTA - Cardiovascular Rhythm: regular Heart Sounds: Present: S1 & S2. Absent: gallop, rub - Extremities Extremities: no ischemia, No edema, Full ROM - Abdominal General gastrointestinal: soft, non-tender, non-distended, normal bowel sounds - Integumentary Integumentary: Present: clear, warm, dry - Neurologic Neurologic: CNII-XII intact, moves all extremities Results - Labs CBC & Chem 7: 04/12/18 04:46 04/12/18 04:46 Labs: Laboratory Last Values WBC 4.6 K/mm3 (4.5-11.0) 04/12/18 04:46 RBC 2.75 M/mm3 (3.65-5.03) L 04/12/18 04:46 Hgb 7.8 gm/dl (11.8-15.2) L 04/12/18 04:46 Hct 23.5 % (35.5-45.6) L 04/12/18 04:46 MCV 86 fl (84-94) 04/12/18 04:46 MCH 29 pg (28-32) 04/12/18 04:46 MCHC 33 % (32-34) 04/12/18 04:46 RDW 14.1 % (13.2-15.2) 04/12/18 04:46 Plt Count 360 K/mm3 (140-440) 04/12/18 04:46 Lymph % (Auto) 15.9 % (13.4-35.0) 04/11/18 05:20 [place] % (Auto) Runner Man 04/12/18 04:46 Eos % (Auto) 2.9 % (0.0-4.3) 04/11/18 05:20 Baso % (Auto) 0.7 % (0.0-1.8) 04/11/18 05:20 Lymph # 0.9 K/mm3 (1.2-5.4) L 04/11/18 05:20 [place] # 0.8 K/mm3 (0.0-0.8) 04/11/18 05:20 Eos # 0.2 K/mm3 (0.0-0.4) 04/11/18 05:20 Baso # 0.0 K/mm3 (0.0-0.1) 04/11/18 05:20 Add Manual Diff Complete 04/12/18 04:46 Total Counted 100 04/12/18 04:46 Seg Neutrophils % 67.0 % (40.0-70.0) 04/11/18 05:20 Seg Neuts % (Manual) 73.0 % (40.0-70.0) H 04/12/18 04:46 Band Neutrophils % 1.0 % 04/12/18 04:46 Lymphocytes % (Manual) 11.0 % (13.4-35.0) L 04/12/18 04:46 Reactive Lymphs % (Man) 0 % 04/12/18 04:46 Monocytes % (Manual) 15.0 % (0.0-7.3) H 04/12/18 04:46 Eosinophils % (Manual) 0 % (0.0-4.3) 04/12/18 04:46 Basophils % (Manual) 0 % (0.0-1.8) 04/12/18 04:46 Metamyelocytes % 0 % 04/12/18 04:46 Myelocytes % 0 % 04/12/18 04:46 Promyelocytes % 0 % 04/12/18 04:46 Blast Cells % 0 % 04/12/18 04:46 Nucleated RBC % Not Reportable 04/12/18 04:46 Seg Neutrophils # 3.9 K/mm3 (1.8-7.7) 04/11/18 05:20 Seg Neutrophils # Man 3.4 K/mm3 (1.8-7.7) 04/12/18 04:46 Band Neutrophils # 0.0 K/mm3 04/12/18 04:46 Lymphocytes # (Manual) 0.5 K/mm3 (1.2-5.4) L 04/12/18 04:46 Abs React Lymphs (Man) 0.0 K/mm3 04/12/18 04:46 Monocytes # (Manual) 0.7 K/mm3 (0.0-0.8) 04/12/18 04:46 Eosinophils # (Manual) 0.0 K/mm3 (0.0-0.4) 04/12/18 04:46 Basophils # (Manual) 0.0 K/mm3 (0.0-0.1) 04/12/18 04:46 Metamyelocytes # 0.0 K/mm3 04/12/18 04:46 Myelocytes # 0.0 K/mm3 04/12/18 04:46 Promyelocytes # 0.0 K/mm3 04/12/18 04:46 Blast Cells # 0.0 K/mm3 04/12/18 04:46 WBC Morphology Not Reportable 04/12/18 04:46 Hypersegmented Neuts Not Reportable 04/12/18 04:46 Hyposegmented Neuts Not Reportable 04/12/18 04:46 Hypogranular Neuts Not Reportable 04/12/18 04:46 Smudge Cells Not Reportable 04/12/18 04:46 Toxic Granulation Not Reportable 04/12/18 04:46 Toxic Vacuolation Not Reportable 04/12/18 04:46 Dohle Bodies Not Reportable 04/12/18 04:46 Pelger-Huet Anomaly Not Reportable 04/12/18 04:46 Loi Rods Not Reportable 04/12/18 04:46 Platelet Estimate Appears normal 04/12/18 04:46 Clumped Platelets Not Reportable 04/12/18 04:46 Plt Clumps, EDTA Not Reportable 04/12/18 04:46 Large Platelets Not Reportable 04/12/18 04:46 Giant Platelets Not Reportable 04/12/18 04:46 Platelet Satelliting Not Reportable 04/12/18 04:46 Plt Morphology Comment Not Reportable 04/12/18 04:46 RBC Morphology Not Reportable 04/12/18 04:46 Dimorphic RBCs Not Reportable 04/12/18 04:46 Polychromasia Not Reportable 04/12/18 04:46 Hypochromasia Few 04/12/18 04:46 Poikilocytosis Not Reportable 04/12/18 04:46 Anisocytosis 1+ 04/12/18 04:46 Microcytosis Not Reportable 04/12/18 04:46 Macrocytosis Not Reportable 04/12/18 04:46 Spherocytes Not Reportable 04/12/18 04:46 Pappenheimer Bodies Not Reportable 04/12/18 04:46 Sickle Cells Not Reportable 04/12/18 04:46 Target Cells Not Reportable 04/12/18 04:46 Tear Drop Cells Not Reportable 04/12/18 04:46 Ovalocytes Not Reportable 04/12/18 04:46 Helmet Cells Not Reportable 04/12/18 04:46 [place] Bodies Not Reportable 04/12/18 04:46 Jadwin Rings Not Reportable 04/12/18 04:46 [place] Cells Not Reportable 04/12/18 04:46 Bite Cells Not Reportable 04/12/18 04:46 Crenated Cell Not Reportable 04/12/18 04:46 Elliptocytes Not Reportable 04/12/18 04:46 Acanthocytes (Spur) Not Reportable 04/12/18 04:46 Rouleaux Not Reportable 04/12/18 04:46 Hemoglobin C Crystals Not Reportable 04/12/18 04:46 Schistocytes Not Reportable 04/12/18 04:46 Malaria parasites Not Reportable 04/12/18 04:46 Lev Bodies Not Reportable 04/12/18 04:46 Hem Pathologist Commnt No 04/12/18 04:46 POC ABG pH 7.405 (7.35-7.45) 03/28/18 03:49 POC ABG pCO2 38.6 (35-45) 03/28/18 03:49 POC ABG pO2 102 (80-105) 03/28/18 03:49 POC ABG HCO3 24.2 03/28/18 03:49 POC ABG Total CO2 25 03/28/18 03:49 POC ABG O2 Sat 98 03/28/18 03:49 POC ABG Base Excess 0 03/28/18 03:49 VBG pH 7.000 (7.320-7.420) L* 03/25/18 14:41 FiO2 25 % 03/28/18 03:49 Sodium 140 mmol/L (137-145) 04/12/18 04:46 Potassium 3.9 mmol/L (3.6-5.0) D 04/12/18 04:46 Chloride 106.0 mmol/L (98-107) 04/12/18 04:46 Carbon Dioxide 24 mmol/L (22-30) 04/12/18 04:46 Anion Gap 14 mmol/L 04/12/18 04:46 BUN 32 mg/dL (9-20) H 04/12/18 04:46 Creatinine 3.1 mg/dL (0.8-1.5) H 04/12/18 04:46 Estimated GFR 26 ml/min 04/12/18 04:46 BUN/Creatinine Ratio 10 % 04/12/18 04:46 Glucose 64 mg/dL (75-100) L 04/12/18 04:46 POC Glucose 54 (70-105) L 04/12/18 05:32 Hemoglobin A1c 8.9 % (4-6) H 03/25/18 18:55 Lactic Acid 1.80 mmol/L (0.7-2.0) 03/26/18 04:25 Calcium 7.9 mg/dL (8.4-10.2) L 04/12/18 04:46 Phosphorus 3.80 mg/dL (2.5-4.5) 04/12/18 04:46 Magnesium 2.00 mg/dL (1.7-2.3) 04/08/18 05:38 Iron 54 ug/dL (49-181) 03/28/18 04:35 TIBC 115 mcg/dL (250-450) L 03/28/18 04:35 Transferrin 94 mg/dl (180-329) L 03/28/18 04:35 Ferritin 412.1 ng/mL (13.0-400.0) H 03/28/18 04:35 Total Bilirubin 0.40 mg/dL (0.1-1.2) 04/08/18 05:38 Direct Bilirubin < 0.2 mg/dL (0-0.2) 03/25/18 14:08 Indirect Bilirubin 0.1 mg/dL 03/25/18 14:08 AST 20 units/L (5-40) 04/08/18 05:38 ALT 17 units/L (7-56) 04/08/18 05:38 Alkaline Phosphatase 75 units/L (35-129) 04/08/18 05:38 Total Creatine Kinase 226 units/L (55-170) H 03/25/18 18:09 CK-MB (CK-2) 3.7 ng/mL (0.0-4.0) 03/25/18 18:09 CK-MB (CK-2) Rel Index 1.6 (0-4) 03/25/18 18:09 Troponin T 0.033 ng/mL (0.00-0.029) H 03/25/18 18:09 NT-Pro-B Natriuret Pep 1858 pg/mL (0-900) H 04/07/18 05:46 Total Protein 6.0 g/dL (6.3-8.2) L 04/08/18 05:38 Albumin 2.9 g/dL (3.9-5) L 04/08/18 05:38 Albumin/Globulin Ratio 0.9 % 04/08/18 05:38 Triglycerides 185 mg/dL (2-149) H 03/25/18 18:09 Cholesterol 215 mg/dL (50-199) H 03/25/18 18:09 LDL Cholesterol Direct 144 mg/dL (50-130) H 03/25/18 18:09 HDL Cholesterol 48 mg/dL (40-59) 03/25/18 18:09 Cholesterol/HDL Ratio 4.47 % 03/25/18 18:09 Urine Color Yellow (Yellow) 04/08/18 17:30 Urine Turbidity Clear (Clear) 04/08/18 17:30 Urine pH 5.0 (5.0-7.0) 04/08/18 17:30 Ur Specific [place] 1.011 (1.003-1.030) 04/08/18 17:30 Urine Protein 100 mg/dl mg/dL (Negative) 04/08/18 17:30 Urine Glucose (UA) Neg mg/dL (Negative) 04/08/18 17:30 Urine Ketones Neg mg/dL (Negative) 04/08/18 17:30 Urine Blood Sm (Negative) 04/08/18 17:30 Urine Nitrite Neg (Negative) 04/08/18 17:30 Urine Bilirubin Neg (Negative) 04/08/18 17:30 Urine Urobilinogen < 2.0 mg/dL (<2.0) 04/08/18 17:30 Ur Leukocyte Esterase Neg (Negative) 04/08/18 17:30 Urine WBC (Auto) < 1.0 /HPF (0.0-6.0) 04/08/18 17:30 Urine RBC (Auto) 4.0 /HPF (0.0-6.0) 04/08/18 17:30 Urine Bacteria (Auto) 1+ /HPF (Negative) 04/08/18 17:30 Uric Acid Crystals 2+ 04/05/18 06:18 Hyaline Casts 1 /LPF 04/08/18 17:30 Urine Mucus Few /HPF 04/08/18 17:30 Urine Yeast (Budding) 1+ /HPF 04/05/18 06:18 Urine Eosinophils None seen (None Seen) 04/07/18 14:00 Urine Creatinine 63.0 mg/dL (0.1-20.0) H 04/08/18 17:30 Urine Microalbumin 206.9 mg/dL (0.1-34.0) H 04/08/18 17:30 Microalb/Creat Ratio 3284.1 ug/mg 04/08/18 17:30 Protein/Creatinin Ratio 4.57 04/08/18 17:30 Urine Sodium 94 mmol/L 04/07/18 14:00 Urine Chloride 91.4 mmolL (110-250) L 04/07/18 14:00 Urine Urea Nitrogen 215 04/07/18 14:00 Urine Total Protein 288 mg/dL (5-11.8) H 04/08/18 17:30 Random Vancomycin 8.9 ug/mL (0-40.0) 04/10/18 09:05 Urine Opiates Screen Presumptive negative 03/25/18 14:19 Urine Methadone Screen Presumptive negative 03/25/18 14:19 Ur Barbiturates Screen Presumptive negative 03/25/18 14:19 Ur Phencyclidine Scrn Presumptive negative 03/25/18 14:19 Ur Amphetamines Screen Presumptive negative 03/25/18 14:19 U Benzodiazepines Scrn Presumptive negative 03/25/18 14:19 Urine Cocaine Screen Presumptive negative 03/25/18 14:19 U Marijuana (THC) Screen Presumptive negative 03/25/18 14:19 Drugs of Abuse Note Disclamer 03/25/18 14:19 Hepatitis A IgM Ab Non-reactive (NonReactive) 04/10/18 17:21 Hep Bs Antigen Non-reactive (Negative) 04/10/18 17:21 Hep B Core IgM Ab Non-reactive (NonReactive) 04/10/18 17:21 Hepatitis C Antibody Non-reactive (NonReactive) 04/10/18 17:21 HIV 1&2 Antibody Rapid Non react (Non React) 04/10/18 17:21 HIV P24 Antigen Non react (Non React) 04/10/18 17:21 Blood Type O POSITIVE 04/04/18 20:14 Antibody Screen Negative 04/04/18 20:14 Crossmatch See Detail 04/04/18 20:14
[2018-04-12] MEDS: SODIUM CHLORIDE FLUSH SYRINGE 10 ML IV SCH ×2 (13:43→22:35)
--- NOTE | 2018-04-12 14:01 | Progress Note ---
Assessment and Plan Patient alert, awake .Patient is on 2 litres O2. .O2 saturation 98%. No acute respiratory distress. No complaint of chest pain or shortness of breath or cough.Patient afebrile. No leukocytosis. - Patient Problems (1) Acute respiratory failure Current Visit: Yes Status: Acute Qualifiers: Respiratory failure complication: hypoxia Qualified Code(s): J96.01 - Acute respiratory failure with hypoxia Plan to address problem: Improved. No complaint of shortness of breath.O2 saturation 98% on 2 litres O2. (2) DKA (diabetic ketoacidoses) Current Visit: Yes Status: Acute Qualifiers: Diabetes mellitus type: type 1 Diabetes mellitus complication detail: with coma Qualified Code(s): E10.11 - Type 1 diabetes mellitus with ketoacidosis with coma Plan to address problem: Improving. Management as per primary care. (3) BELKIS (acute kidney injury) Current Visit: Yes Status: Acute Plan to address problem: Management as per primary care and nephrology. (4) Pulmonary infiltrate in left lung on chest x-ray Current Visit: Yes Status: Acute Plan to address problem: Patient is on zosyn Repeating chest xray PA and Lateral. Subjective Date of service: 04/12/18 Principal diagnosis: Acute hypoxic respiratory failure, DKA, BELKIS, Acute encephalopathy Interval history: Patient alert, awake .Patient is on 2 litres O2. .O2 saturation 98%. No acute respiratory distress. No complaint of chest pain or shortness of breath or cough.Patient afebrile. No leukocytosis. Objective Vital Signs - 12hr 04/12/18 04/12/18 04/12/18 05:53 07:30 08:51 Temperature 98.6 F Pulse Rate 66 69 Respiratory 19 Rate Blood Pressure 188/99 179/81 Blood Pressure 179/81 [Right] O2 Sat by Pulse 97 Oximetry 04/12/18 04/12/18 11:20 11:21 Temperature Pulse Rate Respiratory Rate Blood Pressure 191/85 191/85 Blood Pressure [Right] O2 Sat by Pulse Oximetry Constitutional: no acute distress, alert Eyes: non-icteric ENT: oropharynx moist, other (mallampatti 2) Neck: supple, no lymphadenopathy, no JVD, other (no thyromegaly) Effort: normal Ascultation: Bilateral: diminished breath sounds, rhonchi (posterior base) Percussion: Bilateral: not dull Cardiovascular: regular rate and rhythm, other (No R/M) Gastrointestinal: normoactive bowel sounds, soft, non-tender, non-distended, other ( No HSM) Integumentary: normal Extremities: no cyanosis, pulses normal, no ischemia or petechiae, edema (to hands) Neurologic: normal mental status, non-focal exam (grossly), pupils equal and round, CN II-XII normal, motor strength normal and Psychiatric: mood appropriate, affect normal CBC and BMP: 04/12/18 04:46 04/12/18 04:46 ABG, PT/INR, D-dimer: ABG POC ABG pH 7.405 (7.35-7.45) 03/28/18 03:49 POC ABG pCO2 38.6 (35-45) 03/28/18 03:49 POC ABG pO2 102 (80-105) 03/28/18 03:49 POC ABG HCO3 24.2 03/28/18 03:49 POC ABG Total CO2 25 03/28/18 03:49 POC ABG O2 Sat 98 03/28/18 03:49 Abnormal lab findings: Abnormal Labs 03/25/18 03/25/18 03/25/18 13:48 14:00 14:00 WBC 15.3 H RBC Hgb 10.5 L Hct MCV 95 H MCH 27 L MCHC 28 L RDW Plt Count Lymph % (Auto) 8.5 L Caroline % (Auto) Lymph # Caroline # Seg Neutrophils % 86.4 H Seg Neuts % (Manual) Lymphocytes % (Manual) Monocytes % (Manual) Seg Neutrophils # 13.2 H Lymphocytes # (Manual) Monocytes # (Manual) POC ABG pH POC ABG pCO2 POC ABG pO2 VBG pH Sodium 132 L Potassium 8.1 H* Chloride 87.8 L Carbon Dioxide 3 L* BUN 43 H Creatinine 2.6 H Glucose 1026 H* POC Glucose > 500 H Hemoglobin A1c Lactic Acid Calcium Phosphorus TIBC Transferrin Ferritin AST Total Creatine Kinase Troponin T NT-Pro-B Natriuret Pep Total Protein Albumin Triglycerides Cholesterol LDL Cholesterol Direct Urine Creatinine Urine Microalbumin Urine Chloride Urine Total Protein Crossmatch 03/25/18 03/25/18 03/25/18 14:00 14:08 14:29 WBC RBC Hgb Hct MCV MCH MCHC RDW Plt Count Lymph % (Auto) Caroline % (Auto) Lymph # Caroline # Seg Neutrophils % Seg Neuts % (Manual) Lymphocytes % (Manual) Monocytes % (Manual) Seg Neutrophils # Lymphocytes # (Manual) Monocytes # (Manual) POC ABG pH 6.952 L POC ABG pCO2 25.8 L POC ABG pO2 559 H VBG pH Sodium Potassium Chloride Carbon Dioxide BUN Creatinine Glucose POC Glucose Hemoglobin A1c Lactic Acid 10.10 H* Calcium Phosphorus 8.70 H TIBC Transferrin Ferritin AST Total Creatine Kinase Troponin T NT-Pro-B Natriuret Pep Total Protein Albumin 2.6 L Triglycerides Cholesterol LDL Cholesterol Direct Urine Creatinine Urine Microalbumin Urine Chloride Urine Total Protein Crossmatch 03/25/18 03/25/18 03/25/18 14:41 15:40 15:40 WBC RBC Hgb Hct MCV MCH MCHC RDW Plt Count Lymph % (Auto) Caroline % (Auto) Lymph # Caroline # Seg Neutrophils % Seg Neuts % (Manual) Lymphocytes % (Manual) Monocytes % (Manual) Seg Neutrophils # Lymphocytes # (Manual) Monocytes # (Manual) POC ABG pH POC ABG pCO2 POC ABG pO2 VBG pH 7.000 L* Sodium Potassium 6.7 H* Chloride 97.5 L Carbon Dioxide 5 L* BUN 43 H Creatinine 2.5 H Glucose 893 H* POC Glucose Hemoglobin A1c Lactic Acid Calcium 7.5 L Phosphorus 9.10 H TIBC Transferrin Ferritin AST Total Creatine Kinase Troponin T NT-Pro-B Natriuret Pep Total Protein Albumin Triglycerides Cholesterol LDL Cholesterol Direct Urine Creatinine Urine Microalbumin Urine Chloride Urine Total Protein Crossmatch 03/25/18 03/25/18 03/25/18 18:09 18:12 18:55 WBC RBC Hgb Hct MCV MCH MCHC RDW Plt Count Lymph % (Auto) [place] % (Auto) Lymph # [place] # Seg Neutrophils % Seg Neuts % (Manual) Lymphocytes % (Manual) Monocytes % (Manual) Seg Neutrophils # Lymphocytes # (Manual) Monocytes # (Manual) POC ABG pH POC ABG pCO2 POC ABG pO2 VBG pH Sodium 133 L Potassium 5.7 H Chloride 93.1 L Carbon Dioxide 10 L BUN 43 H Creatinine 2.5 H Glucose 786 H* POC Glucose Hemoglobin A1c 8.9 H Lactic Acid Calcium 7.8 L Phosphorus TIBC Transferrin Ferritin AST Total Creatine Kinase 226 H Troponin T 0.033 H NT-Pro-B Natriuret Pep Total Protein Albumin Triglycerides 185 H Cholesterol 215 H LDL Cholesterol Direct 144 H Urine Creatinine Urine Microalbumin Urine Chloride Urine Total Protein Crossmatch 03/25/18 03/25/18 03/25/18 18:55 21:00 21:03 WBC RBC Hgb Hct MCV MCH MCHC RDW Plt Count Lymph % (Auto) [place] % (Auto) Lymph # [place] # Seg Neutrophils % Seg Neuts % (Manual) Lymphocytes % (Manual) Monocytes % (Manual) Seg Neutrophils # Lymphocytes # (Manual) Monocytes # (Manual) POC ABG pH POC ABG pCO2 POC ABG pO2 VBG pH Sodium 136 L Potassium 6.7 H* Chloride Carbon Dioxide 7 L* BUN 45 H Creatinine 2.6 H Glucose 879 H* POC Glucose > 500 H Hemoglobin A1c Lactic Acid Calcium 7.8 L Phosphorus 9.20 H TIBC Transferrin Ferritin AST Total Creatine Kinase Troponin T NT-Pro-B Natriuret Pep Total Protein Albumin Triglycerides Cholesterol LDL Cholesterol Direct Urine Creatinine Urine Microalbumin Urine Chloride Urine Total Protein Crossmatch 03/25/18 03/25/18 03/25/18 21:39 22:06 23:20 WBC RBC Hgb Hct MCV MCH MCHC RDW Plt Count Lymph % (Auto) Caroline % (Auto) Lymph # Caroline # Seg Neutrophils % Seg Neuts % (Manual) Lymphocytes % (Manual) Monocytes % (Manual) Seg Neutrophils # Lymphocytes # (Manual) Monocytes # (Manual) POC ABG pH 7.272 L POC ABG pCO2 14.2 L POC ABG pO2 263 H VBG pH Sodium Potassium Chloride Carbon Dioxide 7 L* BUN 47 H Creatinine 2.9 H Glucose 702 H* POC Glucose > 500 H Hemoglobin A1c Lactic Acid Calcium 7.6 L Phosphorus TIBC Transferrin Ferritin AST Total Creatine Kinase Troponin T NT-Pro-B Natriuret Pep Total Protein Albumin Triglycerides Cholesterol LDL Cholesterol Direct Urine Creatinine Urine Microalbumin Urine Chloride Urine Total Protein Crossmatch 03/25/18 03/26/18 03/26/18 23:20 00:17 01:08 WBC RBC Hgb Hct MCV MCH MCHC RDW Plt Count Lymph % (Auto) Caroline % (Auto) Lymph # [place] # Seg Neutrophils % Seg Neuts % (Manual) Lymphocytes % (Manual) Monocytes % (Manual) Seg Neutrophils # Lymphocytes # (Manual) Monocytes # (Manual) POC ABG pH POC ABG pCO2 POC ABG pO2 VBG pH Sodium Potassium Chloride Carbon Dioxide BUN Creatinine Glucose POC Glucose > 500 H 447 H 484 H Hemoglobin A1c Lactic Acid Calcium Phosphorus TIBC Transferrin Ferritin AST Total Creatine Kinase Troponin T NT-Pro-B Natriuret Pep Total Protein Albumin Triglycerides Cholesterol LDL Cholesterol Direct Urine Creatinine Urine Microalbumin Urine Chloride Urine Total Protein Crossmatch 03/26/18 03/26/18 03/26/18 02:31 03:07 04:09 WBC RBC Hgb Hct MCV MCH MCHC RDW Plt Count Lymph % (Auto) Caroline % (Auto) Lymph # [place] # Seg Neutrophils % Seg Neuts % (Manual) Lymphocytes % (Manual) Monocytes % (Manual) Seg Neutrophils # Lymphocytes # (Manual) Monocytes # (Manual) POC ABG pH POC ABG pCO2 POC ABG pO2 VBG pH Sodium Potassium Chloride Carbon Dioxide BUN Creatinine Glucose POC Glucose > 500 H 467 H 361 H Hemoglobin A1c Lactic Acid Calcium Phosphorus TIBC Transferrin Ferritin AST Total Creatine Kinase Troponin T NT-Pro-B Natriuret Pep Total Protein Albumin Triglycerides Cholesterol LDL Cholesterol Direct Urine Creatinine Urine Microalbumin Urine Chloride Urine Total Protein Crossmatch 03/26/18 03/26/18 03/26/18 04:25 05:24 06:19 WBC RBC Hgb Hct MCV MCH MCHC RDW Plt Count Lymph % (Auto) [place] % (Auto) Lymph # [place] # Seg Neutrophils % Seg Neuts % (Manual) Lymphocytes % (Manual) Monocytes % (Manual) Seg Neutrophils # Lymphocytes # (Manual) Monocytes # (Manual) POC ABG pH POC ABG pCO2 POC ABG pO2 VBG pH Sodium 150 H D Potassium 3.4 L D Chloride 118.3 H Carbon Dioxide 16 L D BUN 45 H Creatinine 2.7 H Glucose 278 H POC Glucose 306 H 188 H Hemoglobin A1c Lactic Acid Calcium 7.7 L Phosphorus TIBC Transferrin Ferritin AST Total Creatine Kinase Troponin T NT-Pro-B Natriuret Pep Total Protein Albumin Triglycerides Cholesterol LDL Cholesterol Direct Urine Creatinine Urine Microalbumin Urine Chloride Urine Total Protein Crossmatch 03/26/18 03/26/18 03/26/18 07:09 08:20 09:12 WBC RBC Hgb Hct MCV MCH MCHC RDW Plt Count Lymph % (Auto) [place] % (Auto) Lymph # [place] # Seg Neutrophils % Seg Neuts % (Manual) Lymphocytes % (Manual) Monocytes % (Manual) Seg Neutrophils # Lymphocytes # (Manual) Monocytes # (Manual) POC ABG pH 7.530 H POC ABG pCO2 22.0 L POC ABG pO2 147 H VBG pH Sodium Potassium Chloride Carbon Dioxide BUN Creatinine Glucose POC Glucose 148 H 170 H Hemoglobin A1c Lactic Acid Calcium Phosphorus TIBC Transferrin Ferritin AST Total Creatine Kinase Troponin T NT-Pro-B Natriuret Pep Total Protein Albumin Triglycerides Cholesterol LDL Cholesterol Direct Urine Creatinine Urine Microalbumin Urine Chloride Urine Total Protein Crossmatch 03/26/18 03/26/18 03/26/18 09:15 10:30 10:46 WBC RBC Hgb Hct MCV MCH MCHC RDW Plt Count Lymph % (Auto) [place] % (Auto) Lymph # [place] # Seg Neutrophils % Seg Neuts % (Manual) Lymphocytes % (Manual) Monocytes % (Manual) Seg Neutrophils # Lymphocytes # (Manual) Monocytes # (Manual) POC ABG pH POC ABG pCO2 POC ABG pO2 VBG pH Sodium 152 H Potassium 3.1 L Chloride 121.4 H Carbon Dioxide BUN 43 H Creatinine 2.6 H Glucose 105 H POC Glucose 177 H 125 H Hemoglobin A1c Lactic Acid Calcium 7.5 L Phosphorus TIBC Transferrin Ferritin AST Total Creatine Kinase Troponin T NT-Pro-B Natriuret Pep Total Protein Albumin Triglycerides Cholesterol LDL Cholesterol Direct Urine Creatinine Urine Microalbumin Urine Chloride Urine Total Protein Crossmatch 03/26/18 03/26/18 03/26/18 14:57 15:35 18:12 WBC RBC Hgb Hct MCV MCH MCHC RDW Plt Count Lymph % (Auto) [place] % (Auto) Lymph # [place] # Seg Neutrophils % Seg Neuts % (Manual) Lymphocytes % (Manual) Monocytes % (Manual) Seg Neutrophils # Lymphocytes # (Manual) Monocytes # (Manual) POC ABG pH POC ABG pCO2 POC ABG pO2 VBG pH Sodium 148 H Potassium Chloride 117.5 H Carbon Dioxide 18 L BUN 43 H Creatinine 2.5 H Glucose 135 H POC Glucose 159 H 245 H Hemoglobin A1c Lactic Acid Calcium 7.3 L Phosphorus TIBC Transferrin Ferritin AST Total Creatine Kinase Troponin T NT-Pro-B Natriuret Pep Total Protein Albumin Triglycerides Cholesterol LDL Cholesterol Direct Urine Creatinine Urine Microalbumin Urine Chloride Urine Total Protein Crossmatch 03/26/18 03/26/18 03/27/18 19:27 21:42 02:03 WBC RBC Hgb Hct MCV MCH MCHC RDW Plt Count Lymph % (Auto) [place] % (Auto) Lymph # [place] # Seg Neutrophils % Seg Neuts % (Manual) Lymphocytes % (Manual) Monocytes % (Manual) Seg Neutrophils # Lymphocytes # (Manual) Monocytes # (Manual) POC ABG pH POC ABG pCO2 POC ABG pO2 VBG pH Sodium Potassium Chloride 115.0 H Carbon Dioxide 20 L BUN 42 H Creatinine 2.4 H Glucose 221 H POC Glucose 261 H 254 H Hemoglobin A1c Lactic Acid Calcium 7.1 L Phosphorus TIBC Transferrin Ferritin AST Total Creatine Kinase Troponin T NT-Pro-B Natriuret Pep Total Protein Albumin Triglycerides Cholesterol LDL Cholesterol Direct Urine Creatinine Urine Microalbumin Urine Chloride Urine Total Protein Crossmatch 03/27/18 03/27/18 03/27/18 03:35 03:35 05:20 WBC 12.3 H RBC 3.05 L Hgb 8.3 L Hct 25.3 L D MCV 83 L MCH 27 L MCHC RDW Plt Count Lymph % (Auto) Caroline % (Auto) 8.6 H Lymph # Caroline # 1.1 H Seg Neutrophils % 76.5 H Seg Neuts % (Manual) Lymphocytes % (Manual) Monocytes % (Manual) Seg Neutrophils # 9.4 H Lymphocytes # (Manual) Monocytes # (Manual) POC ABG pH POC ABG pCO2 POC ABG pO2 VBG pH Sodium Potassium Chloride 112.6 H Carbon Dioxide BUN 36 H Creatinine 2.1 H Glucose 244 H POC Glucose 263 H Hemoglobin A1c Lactic Acid Calcium 7.1 L Phosphorus TIBC Transferrin Ferritin AST 44 H Total Creatine Kinase Troponin T NT-Pro-B Natriuret Pep Total Protein 5.1 L D Albumin 2.1 L Triglycerides Cholesterol LDL Cholesterol Direct Urine Creatinine Urine Microalbumin Urine Chloride Urine Total Protein Crossmatch 03/27/18 03/27/18 03/27/18 08:22 13:00 14:06 WBC RBC Hgb Hct MCV MCH MCHC RDW Plt Count Lymph % (Auto) [place] % (Auto) Lymph # [place] # Seg Neutrophils % Seg Neuts % (Manual) Lymphocytes % (Manual) Monocytes % (Manual) Seg Neutrophils # Lymphocytes # (Manual) Monocytes # (Manual) POC ABG pH POC ABG pCO2 34.7 L POC ABG pO2 VBG pH Sodium Potassium Chloride Carbon Dioxide BUN Creatinine Glucose POC Glucose 306 H 233 H Hemoglobin A1c Lactic Acid Calcium Phosphorus TIBC Transferrin Ferritin AST Total Creatine Kinase Troponin T NT-Pro-B Natriuret Pep Total Protein Albumin Triglycerides Cholesterol LDL Cholesterol Direct Urine Creatinine Urine Microalbumin Urine Chloride Urine Total Protein Crossmatch 03/27/18 03/27/18 03/27/18 16:15 18:11 21:44 WBC RBC Hgb Hct MCV MCH MCHC RDW Plt Count Lymph % (Auto) Caroline % (Auto) Lymph # [place] # Seg Neutrophils % Seg Neuts % (Manual) Lymphocytes % (Manual) Monocytes % (Manual) Seg Neutrophils # Lymphocytes # (Manual) Monocytes # (Manual) POC ABG pH POC ABG pCO2 POC ABG pO2 VBG pH Sodium Potassium Chloride Carbon Dioxide BUN Creatinine Glucose POC Glucose 243 H 226 H 224 H Hemoglobin A1c Lactic Acid Calcium Phosphorus TIBC Transferrin Ferritin AST Total Creatine Kinase Troponin T NT-Pro-B Natriuret Pep Total Protein Albumin Triglycerides Cholesterol LDL Cholesterol Direct Urine Creatinine Urine Microalbumin Urine Chloride Urine Total Protein Crossmatch 03/28/18 03/28/18 03/28/18 02:07 04:35 04:35 WBC RBC Hgb Hct MCV MCH MCHC RDW Plt Count Lymph % (Auto) [place] % (Auto) Lymph # [place] # Seg Neutrophils % Seg Neuts % (Manual) Lymphocytes % (Manual) Monocytes % (Manual) Seg Neutrophils # Lymphocytes # (Manual) Monocytes # (Manual) POC ABG pH POC ABG pCO2 POC ABG pO2 VBG pH Sodium Potassium Chloride Carbon Dioxide BUN Creatinine Glucose POC Glucose 220 H Hemoglobin A1c Lactic Acid Calcium Phosphorus TIBC 115 L Transferrin 94 L Ferritin 412.1 H AST Total Creatine Kinase Troponin T NT-Pro-B Natriuret Pep Total Protein Albumin Triglycerides Cholesterol LDL Cholesterol Direct Urine Creatinine Urine Microalbumin Urine Chloride Urine Total Protein Crossmatch 03/28/18 03/28/18 03/28/18 05:27 09:52 10:59 WBC RBC 3.22 L Hgb 9.1 L Hct 26.8 L MCV 83 L MCH MCHC RDW Plt Count 134 L Lymph % (Auto) Caroline % (Auto) Lymph # [place] # Seg Neutrophils % Seg Neuts % (Manual) Lymphocytes % (Manual) Monocytes % (Manual) Seg Neutrophils # Lymphocytes # (Manual) Monocytes # (Manual) POC ABG pH POC ABG pCO2 POC ABG pO2 VBG pH Sodium Potassium Chloride Carbon Dioxide BUN Creatinine Glucose POC Glucose 280 H 332 H Hemoglobin A1c Lactic Acid Calcium Phosphorus TIBC Transferrin Ferritin AST Total Creatine Kinase Troponin T NT-Pro-B Natriuret Pep Total Protein Albumin Triglycerides Cholesterol LDL Cholesterol Direct Urine Creatinine Urine Microalbumin Urine Chloride Urine Total Protein Crossmatch 03/28/18 03/28/18 03/28/18 10:59 14:39 17:47 WBC RBC Hgb Hct MCV MCH MCHC RDW Plt Count Lymph % (Auto) [place] % (Auto) Lymph # [place] # Seg Neutrophils % Seg Neuts % (Manual) Lymphocytes % (Manual) Monocytes % (Manual) Seg Neutrophils # Lymphocytes # (Manual) Monocytes # (Manual) POC ABG pH POC ABG pCO2 POC ABG pO2 VBG pH Sodium 136 L Potassium Chloride Carbon Dioxide BUN 29 H Creatinine Glucose 310 H POC Glucose 250 H 132 H Hemoglobin A1c Lactic Acid Calcium 7.0 L Phosphorus TIBC Transferrin Ferritin AST Total Creatine Kinase Troponin T NT-Pro-B Natriuret Pep Total Protein Albumin Triglycerides Cholesterol LDL Cholesterol Direct Urine Creatinine Urine Microalbumin Urine Chloride Urine Total Protein Crossmatch 03/29/18 03/29/18 03/29/18 01:49 04:23 05:45 WBC RBC 3.13 L Hgb 8.8 L Hct 25.8 L MCV 82 L MCH MCHC RDW 12.7 L Plt Count 132 L Lymph % (Auto) 10.8 L Caroline % (Auto) 9.1 H Lymph # 1.0 L Caroline # Seg Neutrophils % 79.1 H Seg Neuts % (Manual) Lymphocytes % (Manual) Monocytes % (Manual) Seg Neutrophils # Lymphocytes # (Manual) Monocytes # (Manual) POC ABG pH POC ABG pCO2 POC ABG pO2 VBG pH Sodium 134 L Potassium Chloride Carbon Dioxide BUN 27 H Creatinine Glucose 172 H POC Glucose 122 H Hemoglobin A1c Lactic Acid Calcium 7.1 L Phosphorus TIBC Transferrin Ferritin AST Total Creatine Kinase Troponin T NT-Pro-B Natriuret Pep Total Protein Albumin Triglycerides Cholesterol LDL Cholesterol Direct Urine Creatinine Urine Microalbumin Urine Chloride Urine Total Protein Crossmatch 03/29/18 03/29/18 03/29/18 05:57 09:19 13:09 WBC RBC Hgb Hct MCV MCH MCHC RDW Plt Count Lymph % (Auto) [place] % (Auto) Lymph # [place] # Seg Neutrophils % Seg Neuts % (Manual) Lymphocytes % (Manual) Monocytes % (Manual) Seg Neutrophils # Lymphocytes # (Manual) Monocytes # (Manual) POC ABG pH POC ABG pCO2 POC ABG pO2 VBG pH Sodium Potassium Chloride Carbon Dioxide BUN Creatinine Glucose POC Glucose 224 H 316 H 345 H Hemoglobin A1c Lactic Acid Calcium Phosphorus TIBC Transferrin Ferritin AST Total Creatine Kinase Troponin T NT-Pro-B Natriuret Pep Total Protein Albumin Triglycerides Cholesterol LDL Cholesterol Direct Urine Creatinine Urine Microalbumin Urine Chloride Urine Total Protein Crossmatch 03/29/18 03/29/18 03/29/18 16:27 22:26 22:36 WBC RBC Hgb Hct MCV MCH MCHC RDW Plt Count Lymph % (Auto) [place] % (Auto) Lymph # [place] # Seg Neutrophils % Seg Neuts % (Manual) Lymphocytes % (Manual) Monocytes % (Manual) Seg Neutrophils # Lymphocytes # (Manual) Monocytes # (Manual) POC ABG pH POC ABG pCO2 POC ABG pO2 VBG pH Sodium Potassium Chloride Carbon Dioxide BUN Creatinine Glucose POC Glucose 210 H < 40 L 172 H Hemoglobin A1c Lactic Acid Calcium Phosphorus TIBC Transferrin Ferritin AST Total Creatine Kinase Troponin T NT-Pro-B Natriuret Pep Total Protein Albumin Triglycerides Cholesterol LDL Cholesterol Direct Urine Creatinine Urine Microalbumin Urine Chloride Urine Total Protein Crossmatch 03/30/18 03/30/18 03/30/18 00:07 05:12 06:39 WBC RBC 2.95 L Hgb 8.3 L Hct 24.6 L MCV 83 L MCH MCHC RDW 12.9 L Plt Count Lymph % (Auto) Caroline % (Auto) 13.5 H Lymph # Caroline # 0.9 H Seg Neutrophils % Seg Neuts % (Manual) Lymphocytes % (Manual) Monocytes % (Manual) Seg Neutrophils # Lymphocytes # (Manual) Monocytes # (Manual) POC ABG pH POC ABG pCO2 POC ABG pO2 VBG pH Sodium Potassium Chloride Carbon Dioxide BUN Creatinine Glucose POC Glucose 69 L 213 H Hemoglobin A1c Lactic Acid Calcium Phosphorus TIBC Transferrin Ferritin AST Total Creatine Kinase Troponin T NT-Pro-B Natriuret Pep Total Protein Albumin Triglycerides Cholesterol LDL Cholesterol Direct Urine Creatinine Urine Microalbumin Urine Chloride Urine Total Protein Crossmatch 03/30/18 03/30/18 03/30/18 06:39 10:06 13:59 WBC RBC Hgb Hct MCV MCH MCHC RDW Plt Count Lymph % (Auto) [place] % (Auto) Lymph # [place] # Seg Neutrophils % Seg Neuts % (Manual) Lymphocytes % (Manual) Monocytes % (Manual) Seg Neutrophils # Lymphocytes # (Manual) Monocytes # (Manual) POC ABG pH POC ABG pCO2 POC ABG pO2 VBG pH Sodium 133 L Potassium 3.5 L D Chloride 95.6 L Carbon Dioxide BUN 34 H Creatinine Glucose 241 H POC Glucose 368 H 237 H Hemoglobin A1c Lactic Acid Calcium 7.3 L Phosphorus TIBC Transferrin Ferritin AST Total Creatine Kinase Troponin T NT-Pro-B Natriuret Pep Total Protein Albumin Triglycerides Cholesterol LDL Cholesterol Direct Urine Creatinine Urine Microalbumin Urine Chloride Urine Total Protein Crossmatch 03/30/18 03/30/18 03/30/18 16:39 20:47 21:30 WBC RBC Hgb Hct MCV MCH MCHC RDW Plt Count Lymph % (Auto) [place] % (Auto) Lymph # [place] # Seg Neutrophils % Seg Neuts % (Manual) Lymphocytes % (Manual) Monocytes % (Manual) Seg Neutrophils # Lymphocytes # (Manual) Monocytes # (Manual) POC ABG pH POC ABG pCO2 POC ABG pO2 VBG pH Sodium Potassium Chloride Carbon Dioxide BUN Creatinine Glucose POC Glucose 176 H 60 L 113 H Hemoglobin A1c Lactic Acid Calcium Phosphorus TIBC Transferrin Ferritin AST Total Creatine Kinase Troponin T NT-Pro-B Natriuret Pep Total Protein Albumin Triglycerides Cholesterol LDL Cholesterol Direct Urine Creatinine Urine Microalbumin Urine Chloride Urine Total Protein Crossmatch 03/31/18 03/31/18 03/31/18 02:07 06:45 07:24 WBC RBC 3.06 L Hgb 8.6 L Hct 25.3 L MCV 83 L MCH MCHC RDW 12.7 L Plt Count Lymph % (Auto) [place] % (Auto) Lymph # [place] # Seg Neutrophils % Seg Neuts % (Manual) 73.0 H Lymphocytes % (Manual) 6.0 L Monocytes % (Manual) 21.0 H Seg Neutrophils # Lymphocytes # (Manual) 0.4 L Monocytes # (Manual) 1.4 H POC ABG pH POC ABG pCO2 POC ABG pO2 VBG pH Sodium Potassium Chloride Carbon Dioxide BUN Creatinine Glucose POC Glucose 140 H 260 H Hemoglobin A1c Lactic Acid Calcium Phosphorus TIBC Transferrin Ferritin AST Total Creatine Kinase Troponin T NT-Pro-B Natriuret Pep Total Protein Albumin Triglycerides Cholesterol LDL Cholesterol Direct Urine Creatinine Urine Microalbumin Urine Chloride Urine Total Protein Crossmatch 03/31/18 03/31/18 03/31/18 07:24 11:51 13:08 WBC RBC Hgb Hct MCV MCH MCHC RDW Plt Count Lymph % (Auto) [place] % (Auto) Lymph # [place] # Seg Neutrophils % Seg Neuts % (Manual) Lymphocytes % (Manual) Monocytes % (Manual) Seg Neutrophils # Lymphocytes # (Manual) Monocytes # (Manual) POC ABG pH POC ABG pCO2 POC ABG pO2 VBG pH Sodium 134 L Potassium Chloride Carbon Dioxide BUN 36 H Creatinine 1.8 H Glucose 271 H POC Glucose > 500 H > 500 H Hemoglobin A1c Lactic Acid Calcium 7.3 L Phosphorus TIBC Transferrin Ferritin AST Total Creatine Kinase Troponin T NT-Pro-B Natriuret Pep Total Protein Albumin Triglycerides Cholesterol LDL Cholesterol Direct Urine Creatinine Urine Microalbumin Urine Chloride Urine Total Protein Crossmatch 03/31/18 03/31/18 03/31/18 14:00 16:15 16:29 WBC RBC Hgb Hct MCV MCH MCHC RDW Plt Count Lymph % (Auto) [place] % (Auto) Lymph # [place] # Seg Neutrophils % Seg Neuts % (Manual) Lymphocytes % (Manual) Monocytes % (Manual) Seg Neutrophils # Lymphocytes # (Manual) Monocytes # (Manual) POC ABG pH POC ABG pCO2 POC ABG pO2 VBG pH Sodium Potassium Chloride Carbon Dioxide BUN Creatinine Glucose POC Glucose > 500 H 405 H 424 H Hemoglobin A1c Lactic Acid Calcium Phosphorus TIBC Transferrin Ferritin AST Total Creatine Kinase Troponin T NT-Pro-B Natriuret Pep Total Protein Albumin Triglycerides Cholesterol LDL Cholesterol Direct Urine Creatinine Urine Microalbumin Urine Chloride Urine Total Protein Crossmatch 03/31/18 04/01/18 04/01/18 21:14 00:21 05:51 WBC RBC 2.55 L Hgb 7.1 L Hct 21.2 L MCV 83 L MCH MCHC RDW 12.5 L Plt Count Lymph % (Auto) [place] % (Auto) Lymph # [place] # Seg Neutrophils % Seg Neuts % (Manual) Lymphocytes % (Manual) Monocytes % (Manual) 22.0 H Seg Neutrophils # Lymphocytes # (Manual) Monocytes # (Manual) 1.1 H POC ABG pH POC ABG pCO2 POC ABG pO2 VBG pH Sodium Potassium Chloride Carbon Dioxide BUN Creatinine Glucose POC Glucose 393 H 384 H Hemoglobin A1c Lactic Acid Calcium Phosphorus TIBC Transferrin Ferritin AST Total Creatine Kinase Troponin T NT-Pro-B Natriuret Pep Total Protein Albumin Triglycerides Cholesterol LDL Cholesterol Direct Urine Creatinine Urine Microalbumin Urine Chloride Urine Total Protein Crossmatch 04/01/18 04/01/18 04/01/18 05:51 06:52 11:13 WBC RBC Hgb Hct MCV MCH MCHC RDW Plt Count Lymph % (Auto) Caroline % (Auto) Lymph # Caroline # Seg Neutrophils % Seg Neuts % (Manual) Lymphocytes % (Manual) Monocytes % (Manual) Seg Neutrophils # Lymphocytes # (Manual) Monocytes # (Manual) POC ABG pH POC ABG pCO2 POC ABG pO2 VBG pH Sodium Potassium Chloride Carbon Dioxide BUN 35 H Creatinine Glucose 120 H POC Glucose 114 H Hemoglobin A1c Lactic Acid Calcium 7.3 L Phosphorus TIBC Transferrin Ferritin AST Total Creatine Kinase Troponin T NT-Pro-B Natriuret Pep Total Protein Albumin Triglycerides Cholesterol LDL Cholesterol Direct Urine Creatinine Urine Microalbumin Urine Chloride Urine Total Protein Crossmatch See Detail 04/01/18 04/01/18 04/01/18 11:16 12:06 16:04 WBC RBC Hgb 7.3 L Hct 21.5 L MCV MCH MCHC RDW Plt Count Lymph % (Auto) Caroline % (Auto) Lymph # Caroline # Seg Neutrophils % Seg Neuts % (Manual) Lymphocytes % (Manual) Monocytes % (Manual) Seg Neutrophils # Lymphocytes # (Manual) Monocytes # (Manual) POC ABG pH POC ABG pCO2 POC ABG pO2 VBG pH Sodium Potassium Chloride Carbon Dioxide BUN Creatinine Glucose POC Glucose 223 H 225 H Hemoglobin A1c Lactic Acid Calcium Phosphorus TIBC Transferrin Ferritin AST Total Creatine Kinase Troponin T NT-Pro-B Natriuret Pep Total Protein Albumin Triglycerides Cholesterol LDL Cholesterol Direct Urine Creatinine Urine Microalbumin Urine Chloride Urine Total Protein Crossmatch 04/01/18 04/01/18 04/01/18 16:46 19:47 21:15 WBC RBC Hgb 7.7 L Hct 23.5 L MCV MCH MCHC RDW Plt Count Lymph % (Auto) Caroline % (Auto) Lymph # [place] # Seg Neutrophils % Seg Neuts % (Manual) Lymphocytes % (Manual) Monocytes % (Manual) Seg Neutrophils # Lymphocytes # (Manual) Monocytes # (Manual) POC ABG pH POC ABG pCO2 POC ABG pO2 VBG pH Sodium Potassium Chloride Carbon Dioxide BUN Creatinine Glucose POC Glucose 219 H 380 H Hemoglobin A1c Lactic Acid Calcium Phosphorus TIBC Transferrin Ferritin AST Total Creatine Kinase Troponin T NT-Pro-B Natriuret Pep Total Protein Albumin Triglycerides Cholesterol LDL Cholesterol Direct Urine Creatinine Urine Microalbumin Urine Chloride Urine Total Protein Crossmatch 04/02/18 04/02/18 04/02/18 05:47 06:57 07:52 WBC RBC 2.80 L Hgb 7.7 L Hct 23.5 L MCV MCH MCHC RDW Plt Count Lymph % (Auto) Caroline % (Auto) Lymph # Caroline # Seg Neutrophils % Seg Neuts % (Manual) Lymphocytes % (Manual) Monocytes % (Manual) 25.0 H Seg Neutrophils # Lymphocytes # (Manual) 1.1 L Monocytes # (Manual) 1.3 H POC ABG pH POC ABG pCO2 POC ABG pO2 VBG pH Sodium Potassium Chloride Carbon Dioxide BUN Creatinine Glucose POC Glucose 49 L 111 H Hemoglobin A1c Lactic Acid Calcium Phosphorus TIBC Transferrin Ferritin AST Total Creatine Kinase Troponin T NT-Pro-B Natriuret Pep Total Protein Albumin Triglycerides Cholesterol LDL Cholesterol Direct Urine Creatinine Urine Microalbumin Urine Chloride Urine Total Protein Crossmatch 04/02/18 04/02/18 04/02/18 07:52 12:36 16:36 WBC RBC Hgb Hct MCV MCH MCHC RDW Plt Count Lymph % (Auto) [place] % (Auto) Lymph # [place] # Seg Neutrophils % Seg Neuts % (Manual) Lymphocytes % (Manual) Monocytes % (Manual) Seg Neutrophils # Lymphocytes # (Manual) Monocytes # (Manual) POC ABG pH POC ABG pCO2 POC ABG pO2 VBG pH Sodium Potassium Chloride Carbon Dioxide BUN 28 H Creatinine Glucose 115 H POC Glucose 259 H 297 H Hemoglobin A1c Lactic Acid Calcium 7.3 L Phosphorus TIBC Transferrin Ferritin AST Total Creatine Kinase Troponin T NT-Pro-B Natriuret Pep Total Protein Albumin Triglycerides Cholesterol LDL Cholesterol Direct Urine Creatinine Urine Microalbumin Urine Chloride Urine Total Protein Crossmatch 04/02/18 04/03/18 04/03/18 22:01 04:20 04:46 WBC RBC Hgb Hct MCV MCH MCHC RDW Plt Count Lymph % (Auto) [place] % (Auto) Lymph # [place] # Seg Neutrophils % Seg Neuts % (Manual) Lymphocytes % (Manual) Monocytes % (Manual) Seg Neutrophils # Lymphocytes # (Manual) Monocytes # (Manual) POC ABG pH POC ABG pCO2 POC ABG pO2 VBG pH Sodium Potassium Chloride Carbon Dioxide BUN Creatinine Glucose POC Glucose 206 H < 40 L 64 L Hemoglobin A1c Lactic Acid Calcium Phosphorus TIBC Transferrin Ferritin AST Total Creatine Kinase Troponin T NT-Pro-B Natriuret Pep Total Protein Albumin Triglycerides Cholesterol LDL Cholesterol Direct Urine Creatinine Urine Microalbumin Urine Chloride Urine Total Protein Crossmatch 04/03/18 04/03/18 04/03/18 05:46 05:46 05:57 WBC RBC 2.72 L Hgb 7.6 L Hct 22.4 L MCV 83 L MCH MCHC RDW Plt Count Lymph % (Auto) Caroline % (Auto) Lymph # [place] # Seg Neutrophils % Seg Neuts % (Manual) Lymphocytes % (Manual) 13.0 L Monocytes % (Manual) 19.0 H Seg Neutrophils # Lymphocytes # (Manual) 0.9 L Monocytes # (Manual) 1.3 H POC ABG pH POC ABG pCO2 POC ABG pO2 VBG pH Sodium Potassium Chloride 110.7 H Carbon Dioxide BUN 24 H Creatinine Glucose 45 L POC Glucose < 40 L Hemoglobin A1c Lactic Acid Calcium 7.3 L Phosphorus TIBC Transferrin Ferritin AST Total Creatine Kinase Troponin T NT-Pro-B Natriuret Pep Total Protein Albumin Triglycerides Cholesterol LDL Cholesterol Direct Urine Creatinine Urine Microalbumin Urine Chloride Urine Total Protein Crossmatch 04/03/18 04/03/18 04/03/18 07:04 09:17 11:34 WBC RBC Hgb Hct MCV MCH MCHC RDW Plt Count Lymph % (Auto) [place] % (Auto) Lymph # [place] # Seg Neutrophils % Seg Neuts % (Manual) Lymphocytes % (Manual) Monocytes % (Manual) Seg Neutrophils # Lymphocytes # (Manual) Monocytes # (Manual) POC ABG pH POC ABG pCO2 POC ABG pO2 VBG pH Sodium Potassium Chloride Carbon Dioxide BUN Creatinine Glucose POC Glucose 44 L 107 H 196 H Hemoglobin A1c Lactic Acid Calcium Phosphorus TIBC Transferrin Ferritin AST Total Creatine Kinase Troponin T NT-Pro-B Natriuret Pep Total Protein Albumin Triglycerides Cholesterol LDL Cholesterol Direct Urine Creatinine Urine Microalbumin Urine Chloride Urine Total Protein Crossmatch 04/03/18 04/03/18 04/04/18 16:48 20:25 06:05 WBC RBC 2.49 L Hgb 6.9 L Hct 20.8 L MCV 83 L MCH MCHC RDW Plt Count Lymph % (Auto) Caroline % (Auto) Lymph # [place] # Seg Neutrophils % Seg Neuts % (Manual) Lymphocytes % (Manual) Monocytes % (Manual) 23.0 H Seg Neutrophils # Lymphocytes # (Manual) 0.7 L Monocytes # (Manual) 1.2 H POC ABG pH POC ABG pCO2 POC ABG pO2 VBG pH Sodium Potassium Chloride Carbon Dioxide BUN Creatinine Glucose POC Glucose 251 H 211 H Hemoglobin A1c Lactic Acid Calcium Phosphorus TIBC Transferrin Ferritin AST Total Creatine Kinase Troponin T NT-Pro-B Natriuret Pep Total Protein Albumin Triglycerides Cholesterol LDL Cholesterol Direct Urine Creatinine Urine Microalbumin Urine Chloride Urine Total Protein Crossmatch 0604/04/18 04/04/18 06:05 06:06 20:14 WBC RBC Hgb Hct MCV MCH MCHC RDW Plt Count Lymph % (Auto) [place] % (Auto) Lymph # [place] # Seg Neutrophils % Seg Neuts % (Manual) Lymphocytes % (Manual) Monocytes % (Manual) Seg Neutrophils # Lymphocytes # (Manual) Monocytes # (Manual) POC ABG pH POC ABG pCO2 POC ABG pO2 VBG pH Sodium Potassium Chloride 109.8 H Carbon Dioxide BUN 22 H Creatinine 1.7 H Glucose 260 H POC Glucose 312 H Hemoglobin A1c Lactic Acid Calcium 7.2 L Phosphorus TIBC Transferrin Ferritin AST Total Creatine Kinase Troponin T NT-Pro-B Natriuret Pep Total Protein Albumin Triglycerides Cholesterol LDL Cholesterol Direct Urine Creatinine Urine Microalbumin Urine Chloride Urine Total Protein Crossmatch See Detail 04/04/18 04/05/18 04/05/18 22:23 06:10 06:10 WBC RBC 2.97 L Hgb 8.6 L Hct 25.0 L MCV MCH MCHC RDW Plt Count Lymph % (Auto) Caroline % (Auto) 15.9 H Lymph # Caroline # 1.2 H Seg Neutrophils % Seg Neuts % (Manual) Lymphocytes % (Manual) Monocytes % (Manual) Seg Neutrophils # Lymphocytes # (Manual) Monocytes # (Manual) POC ABG pH POC ABG pCO2 POC ABG pO2 VBG pH Sodium Potassium Chloride 108.4 H Carbon Dioxide 20 L BUN Creatinine 1.9 H Glucose 42 L POC Glucose 116 H Hemoglobin A1c Lactic Acid Calcium 7.3 L Phosphorus TIBC Transferrin Ferritin AST Total Creatine Kinase Troponin T NT-Pro-B Natriuret Pep Total Protein 5.7 L Albumin 2.3 L Triglycerides Cholesterol LDL Cholesterol Direct Urine Creatinine Urine Microalbumin Urine Chloride Urine Total Protein Crossmatch 04/05/18 04/05/18 04/05/18 06:18 06:20 12:17 WBC RBC Hgb Hct MCV MCH MCHC RDW Plt Count Lymph % (Auto) [place] % (Auto) Lymph # [place] # Seg Neutrophils % Seg Neuts % (Manual) Lymphocytes % (Manual) Monocytes % (Manual) Seg Neutrophils # Lymphocytes # (Manual) Monocytes # (Manual) POC ABG pH POC ABG pCO2 POC ABG pO2 VBG pH Sodium Potassium Chloride Carbon Dioxide BUN Creatinine Glucose POC Glucose 44 L 123 H Hemoglobin A1c Lactic Acid Calcium Phosphorus TIBC Transferrin Ferritin AST Total Creatine Kinase Troponin T NT-Pro-B Natriuret Pep Total Protein Albumin Triglycerides Cholesterol LDL Cholesterol Direct Urine Creatinine 112.0 H Urine Microalbumin Urine Chloride Urine Total Protein Crossmatch 04/05/18 04/05/18 04/06/18 16:33 21:29 07:06 WBC RBC Hgb Hct MCV MCH MCHC RDW Plt Count Lymph % (Auto) [place] % (Auto) Lymph # [place] # Seg Neutrophils % Seg Neuts % (Manual) Lymphocytes % (Manual) Monocytes % (Manual) Seg Neutrophils # Lymphocytes # (Manual) Monocytes # (Manual) POC ABG pH POC ABG pCO2 POC ABG pO2 VBG pH Sodium Potassium Chloride Carbon Dioxide BUN Creatinine Glucose POC Glucose 268 H 207 H 42 L Hemoglobin A1c Lactic Acid Calcium Phosphorus TIBC Transferrin Ferritin AST Total Creatine Kinase Troponin T NT-Pro-B Natriuret Pep Total Protein Albumin Triglycerides Cholesterol LDL Cholesterol Direct Urine Creatinine Urine Microalbumin Urine Chloride Urine Total Protein Crossmatch 04/06/18 04/06/18 04/06/18 11:54 16:40 21:14 WBC RBC Hgb Hct MCV MCH MCHC RDW Plt Count Lymph % (Auto) [place] % (Auto) Lymph # [place] # Seg Neutrophils % Seg Neuts % (Manual) Lymphocytes % (Manual) Monocytes % (Manual) Seg Neutrophils # Lymphocytes # (Manual) Monocytes # (Manual) POC ABG pH POC ABG pCO2 POC ABG pO2 VBG pH Sodium Potassium Chloride Carbon Dioxide BUN Creatinine Glucose POC Glucose 177 H 188 H 336 H Hemoglobin A1c Lactic Acid Calcium Phosphorus TIBC Transferrin Ferritin AST Total Creatine Kinase Troponin T NT-Pro-B Natriuret Pep Total Protein Albumin Triglycerides Cholesterol LDL Cholesterol Direct Urine Creatinine Urine Microalbumin Urine Chloride Urine Total Protein Crossmatch 04/07/18 04/07/18 04/07/18 05:46 05:46 05:46 WBC RBC 2.92 L Hgb 8.2 L Hct 25.0 L MCV MCH MCHC RDW Plt Count Lymph % (Auto) Caroline % (Auto) 12.9 H Lymph # 1.1 L Caroline # Seg Neutrophils % Seg Neuts % (Manual) Lymphocytes % (Manual) Monocytes % (Manual) Seg Neutrophils # Lymphocytes # (Manual) Monocytes # (Manual) POC ABG pH POC ABG pCO2 POC ABG pO2 VBG pH Sodium 131 L D Potassium Chloride 96.6 L Carbon Dioxide 19 L BUN 26 H Creatinine 2.7 H Glucose 247 H POC Glucose Hemoglobin A1c Lactic Acid Calcium 7.7 L Phosphorus TIBC Transferrin Ferritin AST Total Creatine Kinase Troponin T NT-Pro-B Natriuret Pep 1858 H Total Protein Albumin Triglycerides Cholesterol LDL Cholesterol Direct Urine Creatinine Urine Microalbumin Urine Chloride Urine Total Protein Crossmatch 04/07/18 04/07/18 04/07/18 06:00 11:31 14:00 WBC RBC Hgb Hct MCV MCH MCHC RDW Plt Count Lymph % (Auto) [place] % (Auto) Lymph # [place] # Seg Neutrophils % Seg Neuts % (Manual) Lymphocytes % (Manual) Monocytes % (Manual) Seg Neutrophils # Lymphocytes # (Manual) Monocytes # (Manual) POC ABG pH POC ABG pCO2 POC ABG pO2 VBG pH Sodium Potassium Chloride Carbon Dioxide BUN Creatinine Glucose POC Glucose 288 H 373 H Hemoglobin A1c Lactic Acid Calcium Phosphorus TIBC Transferrin Ferritin AST Total Creatine Kinase Troponin T NT-Pro-B Natriuret Pep Total Protein Albumin Triglycerides Cholesterol LDL Cholesterol Direct Urine Creatinine 76.8 H Urine Microalbumin Urine Chloride 91.4 L Urine Total Protein Crossmatch 04/07/18 04/07/18 04/07/18 16:12 18:32 22:00 WBC RBC Hgb Hct MCV MCH MCHC RDW Plt Count Lymph % (Auto) [place] % (Auto) Lymph # [place] # Seg Neutrophils % Seg Neuts % (Manual) Lymphocytes % (Manual) Monocytes % (Manual) Seg Neutrophils # Lymphocytes # (Manual) Monocytes # (Manual) POC ABG pH POC ABG pCO2 POC ABG pO2 VBG pH Sodium Potassium Chloride Carbon Dioxide BUN Creatinine Glucose POC Glucose 280 H 269 H 145 H Hemoglobin A1c Lactic Acid Calcium Phosphorus TIBC Transferrin Ferritin AST Total Creatine Kinase Troponin T NT-Pro-B Natriuret Pep Total Protein Albumin Triglycerides Cholesterol LDL Cholesterol Direct Urine Creatinine Urine Microalbumin Urine Chloride Urine Total Protein Crossmatch 04/08/18 04/08/18 04/08/18 05:38 05:38 06:08 WBC RBC 2.76 L Hgb 7.8 L Hct 23.7 L MCV MCH MCHC RDW Plt Count Lymph % (Auto) Caroline % (Auto) 14.7 H Lymph # Caroline # 0.9 H Seg Neutrophils % Seg Neuts % (Manual) Lymphocytes % (Manual) Monocytes % (Manual) Seg Neutrophils # Lymphocytes # (Manual) Monocytes # (Manual) POC ABG pH POC ABG pCO2 POC ABG pO2 VBG pH Sodium 146 H D Potassium Chloride 113.3 H Carbon Dioxide 21 L BUN 28 H Creatinine 3.2 H Glucose 113 H POC Glucose 119 H Hemoglobin A1c Lactic Acid Calcium 8.0 L Phosphorus TIBC Transferrin Ferritin AST Total Creatine Kinase Troponin T NT-Pro-B Natriuret Pep Total Protein 6.0 L Albumin 2.9 L Triglycerides Cholesterol LDL Cholesterol Direct Urine Creatinine Urine Microalbumin Urine Chloride Urine Total Protein Crossmatch 04/08/18 04/08/18 04/08/18 12:00 17:07 17:30 WBC RBC Hgb Hct MCV MCH MCHC RDW Plt Count Lymph % (Auto) [place] % (Auto) Lymph # [place] # Seg Neutrophils % Seg Neuts % (Manual) Lymphocytes % (Manual) Monocytes % (Manual) Seg Neutrophils # Lymphocytes # (Manual) Monocytes # (Manual) POC ABG pH POC ABG pCO2 POC ABG pO2 VBG pH Sodium Potassium Chloride Carbon Dioxide BUN Creatinine Glucose POC Glucose 232 H 230 H Hemoglobin A1c Lactic Acid Calcium Phosphorus TIBC Transferrin Ferritin AST Total Creatine Kinase Troponin T NT-Pro-B Natriuret Pep Total Protein Albumin Triglycerides Cholesterol LDL Cholesterol Direct Urine Creatinine 63.0 H Urine Microalbumin 206.9 H Urine Chloride Urine Total Protein 288 H Crossmatch 04/08/18 04/09/18 04/09/18 21:06 06:47 10:08 WBC RBC Hgb Hct MCV MCH MCHC RDW Plt Count Lymph % (Auto) [place] % (Auto) Lymph # [place] # Seg Neutrophils % Seg Neuts % (Manual) Lymphocytes % (Manual) Monocytes % (Manual) Seg Neutrophils # Lymphocytes # (Manual) Monocytes # (Manual) POC ABG pH POC ABG pCO2 POC ABG pO2 VBG pH Sodium Potassium Chloride 107.9 H Carbon Dioxide 21 L BUN 29 H Creatinine 3.1 H Glucose POC Glucose 243 H 54 L Hemoglobin A1c Lactic Acid Calcium 7.9 L Phosphorus TIBC Transferrin Ferritin AST Total Creatine Kinase Troponin T NT-Pro-B Natriuret Pep Total Protein Albumin Triglycerides Cholesterol LDL Cholesterol Direct Urine Creatinine Urine Microalbumin Urine Chloride Urine Total Protein Crossmatch 04/09/18 04/09/18 04/09/18 12:11 16:25 21:14 WBC RBC Hgb Hct MCV MCH MCHC RDW Plt Count Lymph % (Auto) [place] % (Auto) Lymph # [place] # Seg Neutrophils % Seg Neuts % (Manual) Lymphocytes % (Manual) Monocytes % (Manual) Seg Neutrophils # Lymphocytes # (Manual) Monocytes # (Manual) POC ABG pH POC ABG pCO2 POC ABG pO2 VBG pH Sodium Potassium Chloride Carbon Dioxide BUN Creatinine Glucose POC Glucose 108 H 235 H 224 H Hemoglobin A1c Lactic Acid Calcium Phosphorus TIBC Transferrin Ferritin AST Total Creatine Kinase Troponin T NT-Pro-B Natriuret Pep Total Protein Albumin Triglycerides Cholesterol LDL Cholesterol Direct Urine Creatinine Urine Microalbumin Urine Chloride Urine Total Protein Crossmatch 04/10/18 04/10/18 04/10/18 06:33 09:05 11:12 WBC RBC 2.96 L Hgb 8.4 L Hct 25.7 L MCV MCH MCHC RDW Plt Count Lymph % (Auto) [place] % (Auto) 13.4 H Lymph # 0.9 L [place] # Seg Neutrophils % Seg Neuts % (Manual) Lymphocytes % (Manual) Monocytes % (Manual) Seg Neutrophils # Lymphocytes # (Manual) Monocytes # (Manual) POC ABG pH POC ABG pCO2 POC ABG pO2 VBG pH Sodium Potassium Chloride Carbon Dioxide 20 L BUN 31 H Creatinine 3.1 H Glucose 145 H POC Glucose 112 H Hemoglobin A1c Lactic Acid Calcium 7.9 L Phosphorus TIBC Transferrin Ferritin AST Total Creatine Kinase Troponin T NT-Pro-B Natriuret Pep Total Protein Albumin Triglycerides Cholesterol LDL Cholesterol Direct Urine Creatinine Urine Microalbumin Urine Chloride Urine Total Protein Crossmatch 04/10/18 04/10/18 04/10/18 11:57 21:05 21:39 WBC RBC Hgb Hct MCV MCH MCHC RDW Plt Count Lymph % (Auto) [place] % (Auto) Lymph # [place] # Seg Neutrophils % Seg Neuts % (Manual) Lymphocytes % (Manual) Monocytes % (Manual) Seg Neutrophils # Lymphocytes # (Manual) Monocytes # (Manual) POC ABG pH POC ABG pCO2 POC ABG pO2 VBG pH Sodium Potassium Chloride Carbon Dioxide BUN Creatinine Glucose 67 L POC Glucose 212 H < 40 L Hemoglobin A1c Lactic Acid Calcium Phosphorus TIBC Transferrin Ferritin AST Total Creatine Kinase Troponin T NT-Pro-B Natriuret Pep Total Protein Albumin Triglycerides Cholesterol LDL Cholesterol Direct Urine Creatinine Urine Microalbumin Urine Chloride Urine Total Protein Crossmatch 04/10/18 04/11/18 04/11/18 21:42 05:20 05:20 WBC RBC 2.93 L Hgb 8.1 L Hct 25.1 L MCV MCH MCHC RDW Plt Count Lymph % (Auto) [place] % (Auto) 13.5 H Lymph # 0.9 L [place] # Seg Neutrophils % Seg Neuts % (Manual) Lymphocytes % (Manual) Monocytes % (Manual) Seg Neutrophils # Lymphocytes # (Manual) Monocytes # (Manual) POC ABG pH POC ABG pCO2 POC ABG pO2 VBG pH Sodium Potassium 5.1 H Chloride Carbon Dioxide 21 L BUN 30 H Creatinine 2.9 H Glucose 286 H POC Glucose 126 H Hemoglobin A1c Lactic Acid Calcium 7.5 L Phosphorus TIBC Transferrin Ferritin AST Total Creatine Kinase Troponin T NT-Pro-B Natriuret Pep Total Protein Albumin Triglycerides Cholesterol LDL Cholesterol Direct Urine Creatinine Urine Microalbumin Urine Chloride Urine Total Protein Crossmatch 04/11/18 04/11/18 04/11/18 05:28 11:18 18:02 WBC RBC Hgb Hct MCV MCH MCHC RDW Plt Count Lymph % (Auto) [place] % (Auto) Lymph # [place] # Seg Neutrophils % Seg Neuts % (Manual) Lymphocytes % (Manual) Monocytes % (Manual) Seg Neutrophils # Lymphocytes # (Manual) Monocytes # (Manual) POC ABG pH POC ABG pCO2 POC ABG pO2 VBG pH Sodium Potassium Chloride Carbon Dioxide BUN Creatinine Glucose POC Glucose 320 H 302 H 269 H Hemoglobin A1c Lactic Acid Calcium Phosphorus TIBC Transferrin Ferritin AST Total Creatine Kinase Troponin T NT-Pro-B Natriuret Pep Total Protein Albumin Triglycerides Cholesterol LDL Cholesterol Direct Urine Creatinine Urine Microalbumin Urine Chloride Urine Total Protein Crossmatch 04/11/18 04/12/18 04/12/18 21:51 04:46 04:46 WBC RBC 2.75 L Hgb 7.8 L Hct 23.5 L MCV MCH MCHC RDW Plt Count Lymph % (Auto) [place] % (Auto) Lymph # [place] # Seg Neutrophils % Seg Neuts % (Manual) 73.0 H Lymphocytes % (Manual) 11.0 L Monocytes % (Manual) 15.0 H Seg Neutrophils # Lymphocytes # (Manual) 0.5 L Monocytes # (Manual) POC ABG pH POC ABG pCO2 POC ABG pO2 VBG pH Sodium Potassium Chloride Carbon Dioxide BUN 32 H Creatinine 3.1 H Glucose 64 L POC Glucose 183 H Hemoglobin A1c Lactic Acid Calcium 7.9 L Phosphorus TIBC Transferrin Ferritin AST Total Creatine Kinase Troponin T NT-Pro-B Natriuret Pep Total Protein Albumin Triglycerides Cholesterol LDL Cholesterol Direct Urine Creatinine Urine Microalbumin Urine Chloride Urine Total Protein Crossmatch 04/12/18 04/12/18 05:32 13:21 WBC RBC Hgb Hct MCV MCH MCHC RDW Plt Count Lymph % (Auto) [place] % (Auto) Lymph # [place] # Seg Neutrophils % Seg Neuts % (Manual) Lymphocytes % (Manual) Monocytes % (Manual) Seg Neutrophils # Lymphocytes # (Manual) Monocytes # (Manual) POC ABG pH POC ABG pCO2 POC ABG pO2 VBG pH Sodium Potassium Chloride Carbon Dioxide BUN Creatinine Glucose POC Glucose 54 L 366 H Hemoglobin A1c Lactic Acid Calcium Phosphorus TIBC Transferrin Ferritin AST Total Creatine Kinase Troponin T NT-Pro-B Natriuret Pep Total Protein Albumin Triglycerides Cholesterol LDL Cholesterol Direct Urine Creatinine Urine Microalbumin Urine Chloride Urine Total Protein Crossmatch Allied health notes reviewed: nursing
[2018-04-13] MEDS: APRESOLINE PO SCH ×3 (06:15→23:45)
[2018-04-13 07:42] LABS: Calcium 7.9 mg/dL (8.4-10.2)
[2018-04-13 07:46] LABS: Hematocrit 24.4 % (35.5-45.6); Mean Corpuscular HGB Conc 33 % (32-34); Mean Corpuscular Hemoglobin 29 pg (28-32); Mean Corpuscular Volume 87 fl (84-94); Platelet Count 339 K/mm3 (140-440); Red Blood Count 2.81 M/mm3 (3.65-5.03); Red Cell Distribution Width 14.6 % (13.2-15.2)
[2018-04-13] MEDS: HumuLIN R SUB-Q SCH ×4 (08:01→23:43)
[2018-04-13] MEDS: PEPCID PO SCH ×3 (08:46→23:46)
[2018-04-13] MEDS: PROzac PO SCH ×2 (08:46→13:11)
[2018-04-13] MEDS: MINIPRESS PO SCH ×3 (08:47→23:46)
[2018-04-13] MEDS: CATAPRES PO SCH ×3 (08:47→23:47)
[2018-04-13] MEDS: BABY ASPIRIN PO SCH ×2 (08:48→13:10)
[2018-04-13] MEDS: COREG PO SCH ×3 (08:48→23:47)
[2018-04-13] MEDS: LOVENOX SUB-Q SCH ×2 (08:49→13:10)
[2018-04-13] MEDS: LASIX PO SCH ×2 (08:53→23:46)
--- NOTE | 2018-04-13 09:19 | Progress Note ---
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 -Hepatitis panel and HIV negative -AZALEA, ANCA, Anti-GBM, DsDNA Ab, SPEP, UPEP, ASO, Anti-de [place], C3, C4, CH50, immunofixation, free kappa/lambda light chains pending -will increase lasix to 40 mg PO BID -Renally dose meds -Strict intake and output -Obtain daily weight -Beard Catheter: No Acute Respiratory Failure: -Extubated -Pulmonology on board Essential Hypertension: -On clonidine, coreg, hydralazine, and minipress DKA: -Resolved Subjective Date of service: 04/13/18 Principal diagnosis: Acute hypoxic respiratory failure, DKA, BELKIS, Acute encephalopathy Interval history: cont to c/o swelling Objective - Vital Signs Vital signs: Vital Signs - 12hr 04/12/18 04/12/18 04/12/18 22:00 22:01 22:32 Temperature 98.5 F Pulse Rate 61 61 Respiratory 18 20 Rate Respiratory 17 Rate [Left Arm] Respiratory 17 Rate [Neck] Blood Pressure 197/85 197/85 O2 Sat by Pulse 100 Oximetry 04/12/18 04/13/18 04/13/18 22:34 06:12 06:15 Temperature Pulse Rate 61 63 60 Respiratory Rate Respiratory Rate [Left Arm] Respiratory Rate [Neck] Blood Pressure 197/85 180/87 180/87 O2 Sat by Pulse 100 Oximetry 04/13/18 04/13/18 04/13/18 07:19 08:47 08:48 Temperature 97.7 F Pulse Rate 61 60 60 Respiratory 20 Rate Respiratory Rate [Left Arm] Respiratory Rate [Neck] Blood Pressure 183/81 170/80 170/80 O2 Sat by Pulse 100 Oximetry - General Appearance General appearance: well-developed, well-nourished, appears stated age EENT: ATNC, PERRL, mucous membranes moist Neck: no JVD, no carotid bruit Respiratory: Present: Clear to Ascultation. Absent: Rales, Ronchi Cardiology: regular, S1S2 Gastrointestinal: hypoactive bowel sounds, no tenderness, no distended Integumentary: no rash, warm and dry Neurologic: no focal deficit, no asterixis, alert and oriented x3 Musculoskeletal: other (1-2+ pitting edema in BLE) Psychiatric: mood/affect appropriate, cooperative - Lab 04/13/18 05:11 04/13/18 05:11 Most recent lab results Calcium 7.9 mg/dL (8.4-10.2) L 04/13/18 05:11 Phosphorus 4.00 mg/dL (2.5-4.5) 04/13/18 05:11 Magnesium 2.00 mg/dL (1.7-2.3) 04/08/18 05:38 Urine Creatinine 63.0 mg/dL (0.1-20.0) H 04/08/18 17:30 Urine Sodium 94 mmol/L 04/07/18 14:00 Urine Total Protein 288 mg/dL (5-11.8) H 04/08/18 17:30
[2018-04-13] MEDS ORDERED: NORVASC PO ONE (09:48)
[2018-04-13 11:34] LABS: Total Cells Counted 100
[2018-04-13 11:35] LABS: Anisocytosis 1+; Platelet Estimate Consistent w Auto
--- NOTE | 2018-04-13 13:06 | Progress Note ---
Assessment and Plan Acute respiratory failure s/p mechanical ventilator. Bilateral pleural effusions Sepsis syndrome. Diabetic ketoacidosis. Severe metabolic acidosis. Acute on chronic encephalopathy, rule out cerebrovascular accident. Medication noncompliance. Anemia. Hyperkalemia. Acute kidney injury. - supplemental oxygen as needed to keep O2 Sats > 90% - s/p empiric antibiotics - continue diuresis and follow electrolytes / BUN & Cr - nephrology evaluation ongoing - continue glycemic control with 70/30 insulin (16 units BID) and SSI - continue VTE prophylaxis - continue Stress ulcer prophylaxis - Agitation and analgesia - Avoid delirium, avoid benzodiazepines - Avoid nephrotoxic agents and adjust all medications for CrCl/GFR - CXR prn - continue PT/OT as tolerated - continue other care per attending / other consultants ..... improved overall but stil borderline pulmonary status and at risk for volume overload ...25' Subjective Date of service: 04/13/18 Principal diagnosis: Acute hypoxic respiratory failure, DKA, BELKIS, Acute encephalopathy Interval history: Patient is seen today for: Acute hypoxic respiratory failure, DKA, BELKIS, Acute encephalopathy Seen and examined at bedside; 24hour events reviewed; nursing and respiratory care staff consulted; no adverse overnight events reported to me; sitting on side of bed; denies acute cjest pain; + BOURGE[place]IS; still making some urine; weak; No N /V/F/C Objective Vital Signs - 12hr 04/13/18 04/13/18 04/13/18 06:12 06:15 07:19 Temperature 97.7 F Pulse Rate 63 60 61 Respiratory 20 Rate Blood Pressure 180/87 180/87 183/81 O2 Sat by Pulse 100 100 Oximetry 04/13/18 04/13/18 04/13/18 08:47 08:48 11:21 Temperature Pulse Rate 60 60 60 Respiratory Rate Blood Pressure 170/80 170/80 160/80 O2 Sat by Pulse Oximetry Constitutional: alert, appears uncomfortable, other (middle aged normocephalic and atraumatic AAM) Eyes: non-icteric ENT: oropharynx moist, other (mallampatti 2) Neck: supple, no lymphadenopathy, no JVD, other (no thyromegaly) Effort: normal Ascultation: Bilateral: clear, diminished breath sounds Percussion: Bilateral: not dull Cardiovascular: regular rate and rhythm, other (No R/M) Gastrointestinal: normoactive bowel sounds, soft, non-tender, non-distended, other ( No HSM) Integumentary: normal Extremities: no cyanosis, pulses normal, no ischemia or petechiae, edema (2+ pedal edema) Neurologic: normal mental status, non-focal exam (grossly), pupils equal and round, CN II-XII normal, motor strength normal and Psychiatric: mood appropriate, depressed CBC and BMP: 04/14/18 07:45 04/14/18 07:45 ABG, PT/INR, D-dimer: ABG POC ABG pH 7.405 (7.35-7.45) 03/28/18 03:49 POC ABG pCO2 38.6 (35-45) 03/28/18 03:49 POC ABG pO2 102 (80-105) 03/28/18 03:49 POC ABG HCO3 24.2 03/28/18 03:49 POC ABG Total CO2 25 03/28/18 03:49 POC ABG O2 Sat 98 03/28/18 03:49 Abnormal lab findings: Abnormal Labs 03/25/18 03/25/18 03/25/18 13:48 14:00 14:00 WBC 15.3 H RBC Hgb 10.5 L Hct MCV 95 H MCH 27 L MCHC 28 L RDW Plt Count Lymph % (Auto) 8.5 L [place] % (Auto) Lymph # [place] # Seg Neutrophils % 86.4 H Seg Neuts % (Manual) Lymphocytes % (Manual) Monocytes % (Manual) Seg Neutrophils # 13.2 H Lymphocytes # (Manual) Monocytes # (Manual) POC ABG pH POC ABG pCO2 POC ABG pO2 VBG pH Sodium 132 L Potassium 8.1 H* Chloride 87.8 L Carbon Dioxide 3 L* BUN 43 H Creatinine 2.6 H Glucose 1026 H* POC Glucose > 500 H Hemoglobin A1c Lactic Acid Calcium Phosphorus TIBC Transferrin Ferritin AST Total Creatine Kinase Troponin T NT-Pro-B Natriuret Pep Total Protein Albumin Triglycerides Cholesterol LDL Cholesterol Direct Urine Creatinine Urine Microalbumin Urine Chloride Urine Total Protein Crossmatch 03/25/18 03/25/18 03/25/18 14:00 14:08 14:29 WBC RBC Hgb Hct MCV MCH MCHC RDW Plt Count Lymph % (Auto) [place] % (Auto) Lymph # [place] # Seg Neutrophils % Seg Neuts % (Manual) Lymphocytes % (Manual) Monocytes % (Manual) Seg Neutrophils # Lymphocytes # (Manual) Monocytes # (Manual) POC ABG pH 6.952 L POC ABG pCO2 25.8 L POC ABG pO2 559 H VBG pH Sodium Potassium Chloride Carbon Dioxide BUN Creatinine Glucose POC Glucose Hemoglobin A1c Lactic Acid 10.10 H* Calcium Phosphorus 8.70 H TIBC Transferrin Ferritin AST Total Creatine Kinase Troponin T NT-Pro-B Natriuret Pep Total Protein Albumin 2.6 L Triglycerides Cholesterol LDL Cholesterol Direct Urine Creatinine Urine Microalbumin Urine Chloride Urine Total Protein Crossmatch 03/25/18 03/25/18 03/25/18 14:41 15:40 15:40 WBC RBC Hgb Hct MCV MCH MCHC RDW Plt Count Lymph % (Auto) [place] % (Auto) Lymph # [place] # Seg Neutrophils % Seg Neuts % (Manual) Lymphocytes % (Manual) Monocytes % (Manual) Seg Neutrophils # Lymphocytes # (Manual) Monocytes # (Manual) POC ABG pH POC ABG pCO2 POC ABG pO2 VBG pH 7.000 L* Sodium Potassium 6.7 H* Chloride 97.5 L Carbon Dioxide 5 L* BUN 43 H Creatinine 2.5 H Glucose 893 H* POC Glucose Hemoglobin A1c Lactic Acid Calcium 7.5 L Phosphorus 9.10 H TIBC Transferrin Ferritin AST Total Creatine Kinase Troponin T NT-Pro-B Natriuret Pep Total Protein Albumin Triglycerides Cholesterol LDL Cholesterol Direct Urine Creatinine Urine Microalbumin Urine Chloride Urine Total Protein Crossmatch 03/25/18 03/25/18 03/25/18 18:09 18:12 18:55 WBC RBC Hgb Hct MCV MCH MCHC RDW Plt Count Lymph % (Auto) [place] % (Auto) Lymph # [place] # Seg Neutrophils % Seg Neuts % (Manual) Lymphocytes % (Manual) Monocytes % (Manual) Seg Neutrophils # Lymphocytes # (Manual) Monocytes # (Manual) POC ABG pH POC ABG pCO2 POC ABG pO2 VBG pH Sodium 133 L Potassium 5.7 H Chloride 93.1 L Carbon Dioxide 10 L BUN 43 H Creatinine 2.5 H Glucose 786 H* POC Glucose Hemoglobin A1c 8.9 H Lactic Acid Calcium 7.8 L Phosphorus TIBC Transferrin Ferritin AST Total Creatine Kinase 226 H Troponin T 0.033 H NT-Pro-B Natriuret Pep Total Protein Albumin Triglycerides 185 H Cholesterol 215 H LDL Cholesterol Direct 144 H Urine Creatinine Urine Microalbumin Urine Chloride Urine Total Protein Crossmatch 03/25/18 03/25/18 03/25/18 18:55 21:00 21:03 WBC RBC Hgb Hct MCV MCH MCHC RDW Plt Count Lymph % (Auto) [place] % (Auto) Lymph # [place] # Seg Neutrophils % Seg Neuts % (Manual) Lymphocytes % (Manual) Monocytes % (Manual) Seg Neutrophils # Lymphocytes # (Manual) Monocytes # (Manual) POC ABG pH POC ABG pCO2 POC ABG pO2 VBG pH Sodium 136 L Potassium 6.7 H* Chloride Carbon Dioxide 7 L* BUN 45 H Creatinine 2.6 H Glucose 879 H* POC Glucose > 500 H Hemoglobin A1c Lactic Acid Calcium 7.8 L Phosphorus 9.20 H TIBC Transferrin Ferritin AST Total Creatine Kinase Troponin T NT-Pro-B Natriuret Pep Total Protein Albumin Triglycerides Cholesterol LDL Cholesterol Direct Urine Creatinine Urine Microalbumin Urine Chloride Urine Total Protein Crossmatch 03/25/18 03/25/18 03/25/18 21:39 22:06 23:20 WBC RBC Hgb Hct MCV MCH MCHC RDW Plt Count Lymph % (Auto) [place] % (Auto) Lymph # [place] # Seg Neutrophils % Seg Neuts % (Manual) Lymphocytes % (Manual) Monocytes % (Manual) Seg Neutrophils # Lymphocytes # (Manual) Monocytes # (Manual) POC ABG pH 7.272 L POC ABG pCO2 14.2 L POC ABG pO2 263 H VBG pH Sodium Potassium Chloride Carbon Dioxide 7 L* BUN 47 H Creatinine 2.9 H Glucose 702 H* POC Glucose > 500 H Hemoglobin A1c Lactic Acid Calcium 7.6 L Phosphorus TIBC Transferrin Ferritin AST Total Creatine Kinase Troponin T NT-Pro-B Natriuret Pep Total Protein Albumin Triglycerides Cholesterol LDL Cholesterol Direct Urine Creatinine Urine Microalbumin Urine Chloride Urine Total Protein Crossmatch 03/25/18 03/26/18 03/26/18 23:20 00:17 01:08 WBC RBC Hgb Hct MCV MCH MCHC RDW Plt Count Lymph % (Auto) [place] % (Auto) Lymph # [place] # Seg Neutrophils % Seg Neuts % (Manual) Lymphocytes % (Manual) Monocytes % (Manual) Seg Neutrophils # Lymphocytes # (Manual) Monocytes # (Manual) POC ABG pH POC ABG pCO2 POC ABG pO2 VBG pH Sodium Potassium Chloride Carbon Dioxide BUN Creatinine Glucose POC Glucose > 500 H 447 H 484 H Hemoglobin A1c Lactic Acid Calcium Phosphorus TIBC Transferrin Ferritin AST Total Creatine Kinase Troponin T NT-Pro-B Natriuret Pep Total Protein Albumin Triglycerides Cholesterol LDL Cholesterol Direct Urine Creatinine Urine Microalbumin Urine Chloride Urine Total Protein Crossmatch 03/26/18 03/26/18 03/26/18 02:31 03:07 04:09 WBC RBC Hgb Hct MCV MCH MCHC RDW Plt Count Lymph % (Auto) [place] % (Auto) Lymph # [place] # Seg Neutrophils % Seg Neuts % (Manual) Lymphocytes % (Manual) Monocytes % (Manual) Seg Neutrophils # Lymphocytes # (Manual) Monocytes # (Manual) POC ABG pH POC ABG pCO2 POC ABG pO2 VBG pH Sodium Potassium Chloride Carbon Dioxide BUN Creatinine Glucose POC Glucose > 500 H 467 H 361 H Hemoglobin A1c Lactic Acid Calcium Phosphorus TIBC Transferrin Ferritin AST Total Creatine Kinase Troponin T NT-Pro-B Natriuret Pep Total Protein Albumin Triglycerides Cholesterol LDL Cholesterol Direct Urine Creatinine Urine Microalbumin Urine Chloride Urine Total Protein Crossmatch 03/26/18 03/26/18 03/26/18 04:25 05:24 06:19 WBC RBC Hgb Hct MCV MCH MCHC RDW Plt Count Lymph % (Auto) [place] % (Auto) Lymph # [place] # Seg Neutrophils % Seg Neuts % (Manual) Lymphocytes % (Manual) Monocytes % (Manual) Seg Neutrophils # Lymphocytes # (Manual) Monocytes # (Manual) POC ABG pH POC ABG pCO2 POC ABG pO2 VBG pH Sodium 150 H D Potassium 3.4 L D Chloride 118.3 H Carbon Dioxide 16 L D BUN 45 H Creatinine 2.7 H Glucose 278 H POC Glucose 306 H 188 H Hemoglobin A1c Lactic Acid Calcium 7.7 L Phosphorus TIBC Transferrin Ferritin AST Total Creatine Kinase Troponin T NT-Pro-B Natriuret Pep Total Protein Albumin Triglycerides Cholesterol LDL Cholesterol Direct Urine Creatinine Urine Microalbumin Urine Chloride Urine Total Protein Crossmatch 03/26/18 03/26/18 03/26/18 07:09 08:20 09:12 WBC RBC Hgb Hct MCV MCH MCHC RDW Plt Count Lymph % (Auto) [place] % (Auto) Lymph # [place] # Seg Neutrophils % Seg Neuts % (Manual) Lymphocytes % (Manual) Monocytes % (Manual) Seg Neutrophils # Lymphocytes # (Manual) Monocytes # (Manual) POC ABG pH 7.530 H POC ABG pCO2 22.0 L POC ABG pO2 147 H VBG pH Sodium Potassium Chloride Carbon Dioxide BUN Creatinine Glucose POC Glucose 148 H 170 H Hemoglobin A1c Lactic Acid Calcium Phosphorus TIBC Transferrin Ferritin AST Total Creatine Kinase Troponin T NT-Pro-B Natriuret Pep Total Protein Albumin Triglycerides Cholesterol LDL Cholesterol Direct Urine Creatinine Urine Microalbumin Urine Chloride Urine Total Protein Crossmatch 03/26/18 03/26/18 03/26/18 09:15 10:30 10:46 WBC RBC Hgb Hct MCV MCH MCHC RDW Plt Count Lymph % (Auto) [place] % (Auto) Lymph # [place] # Seg Neutrophils % Seg Neuts % (Manual) Lymphocytes % (Manual) Monocytes % (Manual) Seg Neutrophils # Lymphocytes # (Manual) Monocytes # (Manual) POC ABG pH POC ABG pCO2 POC ABG pO2 VBG pH Sodium 152 H Potassium 3.1 L Chloride 121.4 H Carbon Dioxide BUN 43 H Creatinine 2.6 H Glucose 105 H POC Glucose 177 H 125 H Hemoglobin A1c Lactic Acid Calcium 7.5 L Phosphorus TIBC Transferrin Ferritin AST Total Creatine Kinase Troponin T NT-Pro-B Natriuret Pep Total Protein Albumin Triglycerides Cholesterol LDL Cholesterol Direct Urine Creatinine Urine Microalbumin Urine Chloride Urine Total Protein Crossmatch 03/26/18 03/26/18 03/26/18 14:57 15:35 18:12 WBC RBC Hgb Hct MCV MCH MCHC RDW Plt Count Lymph % (Auto) [place] % (Auto) Lymph # [place] # Seg Neutrophils % Seg Neuts % (Manual) Lymphocytes % (Manual) Monocytes % (Manual) Seg Neutrophils # Lymphocytes # (Manual) Monocytes # (Manual) POC ABG pH POC ABG pCO2 POC ABG pO2 VBG pH Sodium 148 H Potassium Chloride 117.5 H Carbon Dioxide 18 L BUN 43 H Creatinine 2.5 H Glucose 135 H POC Glucose 159 H 245 H Hemoglobin A1c Lactic Acid Calcium 7.3 L Phosphorus TIBC Transferrin Ferritin AST Total Creatine Kinase Troponin T NT-Pro-B Natriuret Pep Total Protein Albumin Triglycerides Cholesterol LDL Cholesterol Direct Urine Creatinine Urine Microalbumin Urine Chloride Urine Total Protein Crossmatch 03/26/18 03/26/18 03/27/18 19:27 21:42 02:03 WBC RBC Hgb Hct MCV MCH MCHC RDW Plt Count Lymph % (Auto) [place] % (Auto) Lymph # [place] # Seg Neutrophils % Seg Neuts % (Manual) Lymphocytes % (Manual) Monocytes % (Manual) Seg Neutrophils # Lymphocytes # (Manual) Monocytes # (Manual) POC ABG pH POC ABG pCO2 POC ABG pO2 VBG pH Sodium Potassium Chloride 115.0 H Carbon Dioxide 20 L BUN 42 H Creatinine 2.4 H Glucose 221 H POC Glucose 261 H 254 H Hemoglobin A1c Lactic Acid Calcium 7.1 L Phosphorus TIBC Transferrin Ferritin AST Total Creatine Kinase Troponin T NT-Pro-B Natriuret Pep Total Protein Albumin Triglycerides Cholesterol LDL Cholesterol Direct Urine Creatinine Urine Microalbumin Urine Chloride Urine Total Protein Crossmatch 03/27/18 03/27/18 03/27/18 03:35 03:35 05:20 WBC 12.3 H RBC 3.05 L Hgb 8.3 L Hct 25.3 L D MCV 83 L MCH 27 L MCHC RDW Plt Count Lymph % (Auto) [place] % (Auto) 8.6 H Lymph # [place] # 1.1 H Seg Neutrophils % 76.5 H Seg Neuts % (Manual) Lymphocytes % (Manual) Monocytes % (Manual) Seg Neutrophils # 9.4 H Lymphocytes # (Manual) Monocytes # (Manual) POC ABG pH POC ABG pCO2 POC ABG pO2 VBG pH Sodium Potassium Chloride 112.6 H Carbon Dioxide BUN 36 H Creatinine 2.1 H Glucose 244 H POC Glucose 263 H Hemoglobin A1c Lactic Acid Calcium 7.1 L Phosphorus TIBC Transferrin Ferritin AST 44 H Total Creatine Kinase Troponin T NT-Pro-B Natriuret Pep Total Protein 5.1 L D Albumin 2.1 L Triglycerides Cholesterol LDL Cholesterol Direct Urine Creatinine Urine Microalbumin Urine Chloride Urine Total Protein Crossmatch 03/27/18 03/27/18 03/27/18 08:22 13:00 14:06 WBC RBC Hgb Hct MCV MCH MCHC RDW Plt Count Lymph % (Auto) [place] % (Auto) Lymph # [place] # Seg Neutrophils % Seg Neuts % (Manual) Lymphocytes % (Manual) Monocytes % (Manual) Seg Neutrophils # Lymphocytes # (Manual) Monocytes # (Manual) POC ABG pH POC ABG pCO2 34.7 L POC ABG pO2 VBG pH Sodium Potassium Chloride Carbon Dioxide BUN Creatinine Glucose POC Glucose 306 H 233 H Hemoglobin A1c Lactic Acid Calcium Phosphorus TIBC Transferrin Ferritin AST Total Creatine Kinase Troponin T NT-Pro-B Natriuret Pep Total Protein Albumin Triglycerides Cholesterol LDL Cholesterol Direct Urine Creatinine Urine Microalbumin Urine Chloride Urine Total Protein Crossmatch 03/27/18 03/27/18 03/27/18 16:15 18:11 21:44 WBC RBC Hgb Hct MCV MCH MCHC RDW Plt Count Lymph % (Auto) [place] % (Auto) Lymph # [place] # Seg Neutrophils % Seg Neuts % (Manual) Lymphocytes % (Manual) Monocytes % (Manual) Seg Neutrophils # Lymphocytes # (Manual) Monocytes # (Manual) POC ABG pH POC ABG pCO2 POC ABG pO2 VBG pH Sodium Potassium Chloride Carbon Dioxide BUN Creatinine Glucose POC Glucose 243 H 226 H 224 H Hemoglobin A1c Lactic Acid Calcium Phosphorus TIBC Transferrin Ferritin AST Total Creatine Kinase Troponin T NT-Pro-B Natriuret Pep Total Protein Albumin Triglycerides Cholesterol LDL Cholesterol Direct Urine Creatinine Urine Microalbumin Urine Chloride Urine Total Protein Crossmatch 03/28/18 03/28/18 03/28/18 02:07 04:35 04:35 WBC RBC Hgb Hct MCV MCH MCHC RDW Plt Count Lymph % (Auto) [place] % (Auto) Lymph # [place] # Seg Neutrophils % Seg Neuts % (Manual) Lymphocytes % (Manual) Monocytes % (Manual) Seg Neutrophils # Lymphocytes # (Manual) Monocytes # (Manual) POC ABG pH POC ABG pCO2 POC ABG pO2 VBG pH Sodium Potassium Chloride Carbon Dioxide BUN Creatinine Glucose POC Glucose 220 H Hemoglobin A1c Lactic Acid Calcium Phosphorus TIBC 115 L Transferrin 94 L Ferritin 412.1 H AST Total Creatine Kinase Troponin T NT-Pro-B Natriuret Pep Total Protein Albumin Triglycerides Cholesterol LDL Cholesterol Direct Urine Creatinine Urine Microalbumin Urine Chloride Urine Total Protein Crossmatch 03/28/18 03/28/18 03/28/18 05:27 09:52 10:59 WBC RBC 3.22 L Hgb 9.1 L Hct 26.8 L MCV 83 L MCH MCHC RDW Plt Count 134 L Lymph % (Auto) [place] % (Auto) Lymph # [place] # Seg Neutrophils % Seg Neuts % (Manual) Lymphocytes % (Manual) Monocytes % (Manual) Seg Neutrophils # Lymphocytes # (Manual) Monocytes # (Manual) POC ABG pH POC ABG pCO2 POC ABG pO2 VBG pH Sodium Potassium Chloride Carbon Dioxide BUN Creatinine Glucose POC Glucose 280 H 332 H Hemoglobin A1c Lactic Acid Calcium Phosphorus TIBC Transferrin Ferritin AST Total Creatine Kinase Troponin T NT-Pro-B Natriuret Pep Total Protein Albumin Triglycerides Cholesterol LDL Cholesterol Direct Urine Creatinine Urine Microalbumin Urine Chloride Urine Total Protein Crossmatch 03/28/18 03/28/18 03/28/18 10:59 14:39 17:47 WBC RBC Hgb Hct MCV MCH MCHC RDW Plt Count Lymph % (Auto) [place] % (Auto) Lymph # [place] # Seg Neutrophils % Seg Neuts % (Manual) Lymphocytes % (Manual) Monocytes % (Manual) Seg Neutrophils # Lymphocytes # (Manual) Monocytes # (Manual) POC ABG pH POC ABG pCO2 POC ABG pO2 VBG pH Sodium 136 L Potassium Chloride Carbon Dioxide BUN 29 H Creatinine Glucose 310 H POC Glucose 250 H 132 H Hemoglobin A1c Lactic Acid Calcium 7.0 L Phosphorus TIBC Transferrin Ferritin AST Total Creatine Kinase Troponin T NT-Pro-B Natriuret Pep Total Protein Albumin Triglycerides Cholesterol LDL Cholesterol Direct Urine Creatinine Urine Microalbumin Urine Chloride Urine Total Protein Crossmatch 03/29/18 03/29/18 03/29/18 01:49 04:23 05:45 WBC RBC 3.13 L Hgb 8.8 L Hct 25.8 L MCV 82 L MCH MCHC RDW 12.7 L Plt Count 132 L Lymph % (Auto) 10.8 L [place] % (Auto) 9.1 H Lymph # 1.0 L [place] # Seg Neutrophils % 79.1 H Seg Neuts % (Manual) Lymphocytes % (Manual) Monocytes % (Manual) Seg Neutrophils # Lymphocytes # (Manual) Monocytes # (Manual) POC ABG pH POC ABG pCO2 POC ABG pO2 VBG pH Sodium 134 L Potassium Chloride Carbon Dioxide BUN 27 H Creatinine Glucose 172 H POC Glucose 122 H Hemoglobin A1c Lactic Acid Calcium 7.1 L Phosphorus TIBC Transferrin Ferritin AST Total Creatine Kinase Troponin T NT-Pro-B Natriuret Pep Total Protein Albumin Triglycerides Cholesterol LDL Cholesterol Direct Urine Creatinine Urine Microalbumin Urine Chloride Urine Total Protein Crossmatch 03/29/18 03/29/18 03/29/18 05:57 09:19 13:09 WBC RBC Hgb Hct MCV MCH MCHC RDW Plt Count Lymph % (Auto) [place] % (Auto) Lymph # [place] # Seg Neutrophils % Seg Neuts % (Manual) Lymphocytes % (Manual) Monocytes % (Manual) Seg Neutrophils # Lymphocytes # (Manual) Monocytes # (Manual) POC ABG pH POC ABG pCO2 POC ABG pO2 VBG pH Sodium Potassium Chloride Carbon Dioxide BUN Creatinine Glucose POC Glucose 224 H 316 H 345 H Hemoglobin A1c Lactic Acid Calcium Phosphorus TIBC Transferrin Ferritin AST Total Creatine Kinase Troponin T NT-Pro-B Natriuret Pep Total Protein Albumin Triglycerides Cholesterol LDL Cholesterol Direct Urine Creatinine Urine Microalbumin Urine Chloride Urine Total Protein Crossmatch 03/29/18 03/29/18 03/29/18 16:27 22:26 22:36 WBC RBC Hgb Hct MCV MCH MCHC RDW Plt Count Lymph % (Auto) [place] % (Auto) Lymph # [place] # Seg Neutrophils % Seg Neuts % (Manual) Lymphocytes % (Manual) Monocytes % (Manual) Seg Neutrophils # Lymphocytes # (Manual) Monocytes # (Manual) POC ABG pH POC ABG pCO2 POC ABG pO2 VBG pH Sodium Potassium Chloride Carbon Dioxide BUN Creatinine Glucose POC Glucose 210 H < 40 L 172 H Hemoglobin A1c Lactic Acid Calcium Phosphorus TIBC Transferrin Ferritin AST Total Creatine Kinase Troponin T NT-Pro-B Natriuret Pep Total Protein Albumin Triglycerides Cholesterol LDL Cholesterol Direct Urine Creatinine Urine Microalbumin Urine Chloride Urine Total Protein Crossmatch 03/30/18 03/30/18 03/30/18 00:07 05:12 06:39 WBC RBC 2.95 L Hgb 8.3 L Hct 24.6 L MCV 83 L MCH MCHC RDW 12.9 L Plt Count Lymph % (Auto) [place] % (Auto) 13.5 H Lymph # [place] # 0.9 H Seg Neutrophils % Seg Neuts % (Manual) Lymphocytes % (Manual) Monocytes % (Manual) Seg Neutrophils # Lymphocytes # (Manual) Monocytes # (Manual) POC ABG pH POC ABG pCO2 POC ABG pO2 VBG pH Sodium Potassium Chloride Carbon Dioxide BUN Creatinine Glucose POC Glucose 69 L 213 H Hemoglobin A1c Lactic Acid Calcium Phosphorus TIBC Transferrin Ferritin AST Total Creatine Kinase Troponin T NT-Pro-B Natriuret Pep Total Protein Albumin Triglycerides Cholesterol LDL Cholesterol Direct Urine Creatinine Urine Microalbumin Urine Chloride Urine Total Protein Crossmatch 03/30/18 03/30/18 03/30/18 06:39 10:06 13:59 WBC RBC Hgb Hct MCV MCH MCHC RDW Plt Count Lymph % (Auto) [place] % (Auto) Lymph # [place] # Seg Neutrophils % Seg Neuts % (Manual) Lymphocytes % (Manual) Monocytes % (Manual) Seg Neutrophils # Lymphocytes # (Manual) Monocytes # (Manual) POC ABG pH POC ABG pCO2 POC ABG pO2 VBG pH Sodium 133 L Potassium 3.5 L D Chloride 95.6 L Carbon Dioxide BUN 34 H Creatinine Glucose 241 H POC Glucose 368 H 237 H Hemoglobin A1c Lactic Acid Calcium 7.3 L Phosphorus TIBC Transferrin Ferritin AST Total Creatine Kinase Troponin T NT-Pro-B Natriuret Pep Total Protein Albumin Triglycerides Cholesterol LDL Cholesterol Direct Urine Creatinine Urine Microalbumin Urine Chloride Urine Total Protein Crossmatch 03/30/18 03/30/18 03/30/18 16:39 20:47 21:30 WBC RBC Hgb Hct MCV MCH MCHC RDW Plt Count Lymph % (Auto) [place] % (Auto) Lymph # [place] # Seg Neutrophils % Seg Neuts % (Manual) Lymphocytes % (Manual) Monocytes % (Manual) Seg Neutrophils # Lymphocytes # (Manual) Monocytes # (Manual) POC ABG pH POC ABG pCO2 POC ABG pO2 VBG pH Sodium Potassium Chloride Carbon Dioxide BUN Creatinine Glucose POC Glucose 176 H 60 L 113 H Hemoglobin A1c Lactic Acid Calcium Phosphorus TIBC Transferrin Ferritin AST Total Creatine Kinase Troponin T NT-Pro-B Natriuret Pep Total Protein Albumin Triglycerides Cholesterol LDL Cholesterol Direct Urine Creatinine Urine Microalbumin Urine Chloride Urine Total Protein Crossmatch 03/31/18 03/31/18 03/31/18 02:07 06:45 07:24 WBC RBC 3.06 L Hgb 8.6 L Hct 25.3 L MCV 83 L MCH MCHC RDW 12.7 L Plt Count Lymph % (Auto) [place] % (Auto) Lymph # [place] # Seg Neutrophils % Seg Neuts % (Manual) 73.0 H Lymphocytes % (Manual) 6.0 L Monocytes % (Manual) 21.0 H Seg Neutrophils # Lymphocytes # (Manual) 0.4 L Monocytes # (Manual) 1.4 H POC ABG pH POC ABG pCO2 POC ABG pO2 VBG pH Sodium Potassium Chloride Carbon Dioxide BUN Creatinine Glucose POC Glucose 140 H 260 H Hemoglobin A1c Lactic Acid Calcium Phosphorus TIBC Transferrin Ferritin AST Total Creatine Kinase Troponin T NT-Pro-B Natriuret Pep Total Protein Albumin Triglycerides Cholesterol LDL Cholesterol Direct Urine Creatinine Urine Microalbumin Urine Chloride Urine Total Protein Crossmatch 03/31/18 03/31/18 03/31/18 07:24 11:51 13:08 WBC RBC Hgb Hct MCV MCH MCHC RDW Plt Count Lymph % (Auto) [place] % (Auto) Lymph # [place] # Seg Neutrophils % Seg Neuts % (Manual) Lymphocytes % (Manual) Monocytes % (Manual) Seg Neutrophils # Lymphocytes # (Manual) Monocytes # (Manual) POC ABG pH POC ABG pCO2 POC ABG pO2 VBG pH Sodium 134 L Potassium Chloride Carbon Dioxide BUN 36 H Creatinine 1.8 H Glucose 271 H POC Glucose > 500 H > 500 H Hemoglobin A1c Lactic Acid Calcium 7.3 L Phosphorus TIBC Transferrin Ferritin AST Total Creatine Kinase Troponin T NT-Pro-B Natriuret Pep Total Protein Albumin Triglycerides Cholesterol LDL Cholesterol Direct Urine Creatinine Urine Microalbumin Urine Chloride Urine Total Protein Crossmatch 03/31/18 03/31/18 03/31/18 14:00 16:15 16:29 WBC RBC Hgb Hct MCV MCH MCHC RDW Plt Count Lymph % (Auto) [place] % (Auto) Lymph # [place] # Seg Neutrophils % Seg Neuts % (Manual) Lymphocytes % (Manual) Monocytes % (Manual) Seg Neutrophils # Lymphocytes # (Manual) Monocytes # (Manual) POC ABG pH POC ABG pCO2 POC ABG pO2 VBG pH Sodium Potassium Chloride Carbon Dioxide BUN Creatinine Glucose POC Glucose > 500 H 405 H 424 H Hemoglobin A1c Lactic Acid Calcium Phosphorus TIBC Transferrin Ferritin AST Total Creatine Kinase Troponin T NT-Pro-B Natriuret Pep Total Protein Albumin Triglycerides Cholesterol LDL Cholesterol Direct Urine Creatinine Urine Microalbumin Urine Chloride Urine Total Protein Crossmatch 03/31/18 04/01/18 04/01/18 21:14 00:21 05:51 WBC RBC 2.55 L Hgb 7.1 L Hct 21.2 L MCV 83 L MCH MCHC RDW 12.5 L Plt Count Lymph % (Auto) [place] % (Auto) Lymph # [place] # Seg Neutrophils % Seg Neuts % (Manual) Lymphocytes % (Manual) Monocytes % (Manual) 22.0 H Seg Neutrophils # Lymphocytes # (Manual) Monocytes # (Manual) 1.1 H POC ABG pH POC ABG pCO2 POC ABG pO2 VBG pH Sodium Potassium Chloride Carbon Dioxide BUN Creatinine Glucose POC Glucose 393 H 384 H Hemoglobin A1c Lactic Acid Calcium Phosphorus TIBC Transferrin Ferritin AST Total Creatine Kinase Troponin T NT-Pro-B Natriuret Pep Total Protein Albumin Triglycerides Cholesterol LDL Cholesterol Direct Urine Creatinine Urine Microalbumin Urine Chloride Urine Total Protein Crossmatch 04/01/18 04/01/18 04/01/18 05:51 06:52 11:13 WBC RBC Hgb Hct MCV MCH MCHC RDW Plt Count Lymph % (Auto) [place] % (Auto) Lymph # [place] # Seg Neutrophils % Seg Neuts % (Manual) Lymphocytes % (Manual) Monocytes % (Manual) Seg Neutrophils # Lymphocytes # (Manual) Monocytes # (Manual) POC ABG pH POC ABG pCO2 POC ABG pO2 VBG pH Sodium Potassium Chloride Carbon Dioxide BUN 35 H Creatinine Glucose 120 H POC Glucose 114 H Hemoglobin A1c Lactic Acid Calcium 7.3 L Phosphorus TIBC Transferrin Ferritin AST Total Creatine Kinase Troponin T NT-Pro-B Natriuret Pep Total Protein Albumin Triglycerides Cholesterol LDL Cholesterol Direct Urine Creatinine Urine Microalbumin Urine Chloride Urine Total Protein Crossmatch See Detail 04/01/18 04/01/18 04/01/18 11:16 12:06 16:04 WBC RBC Hgb 7.3 L Hct 21.5 L MCV MCH MCHC RDW Plt Count Lymph % (Auto) [place] % (Auto) Lymph # [place] # Seg Neutrophils % Seg Neuts % (Manual) Lymphocytes % (Manual) Monocytes % (Manual) Seg Neutrophils # Lymphocytes # (Manual) Monocytes # (Manual) POC ABG pH POC ABG pCO2 POC ABG pO2 VBG pH Sodium Potassium Chloride Carbon Dioxide BUN Creatinine Glucose POC Glucose 223 H 225 H Hemoglobin A1c Lactic Acid Calcium Phosphorus TIBC Transferrin Ferritin AST Total Creatine Kinase Troponin T NT-Pro-B Natriuret Pep Total Protein Albumin Triglycerides Cholesterol LDL Cholesterol Direct Urine Creatinine Urine Microalbumin Urine Chloride Urine Total Protein Crossmatch 04/01/18 04/01/18 04/01/18 16:46 19:47 21:15 WBC RBC Hgb 7.7 L Hct 23.5 L MCV MCH MCHC RDW Plt Count Lymph % (Auto) [place] % (Auto) Lymph # [place] # Seg Neutrophils % Seg Neuts % (Manual) Lymphocytes % (Manual) Monocytes % (Manual) Seg Neutrophils # Lymphocytes # (Manual) Monocytes # (Manual) POC ABG pH POC ABG pCO2 POC ABG pO2 VBG pH Sodium Potassium Chloride Carbon Dioxide BUN Creatinine Glucose POC Glucose 219 H 380 H Hemoglobin A1c Lactic Acid Calcium Phosphorus TIBC Transferrin Ferritin AST Total Creatine Kinase Troponin T NT-Pro-B Natriuret Pep Total Protein Albumin Triglycerides Cholesterol LDL Cholesterol Direct Urine Creatinine Urine Microalbumin Urine Chloride Urine Total Protein Crossmatch 04/02/18 04/02/18 04/02/18 05:47 06:57 07:52 WBC RBC 2.80 L Hgb 7.7 L Hct 23.5 L MCV MCH MCHC RDW Plt Count Lymph % (Auto) [place] % (Auto) Lymph # [place] # Seg Neutrophils % Seg Neuts % (Manual) Lymphocytes % (Manual) Monocytes % (Manual) 25.0 H Seg Neutrophils # Lymphocytes # (Manual) 1.1 L Monocytes # (Manual) 1.3 H POC ABG pH POC ABG pCO2 POC ABG pO2 VBG pH Sodium Potassium Chloride Carbon Dioxide BUN Creatinine Glucose POC Glucose 49 L 111 H Hemoglobin A1c Lactic Acid Calcium Phosphorus TIBC Transferrin Ferritin AST Total Creatine Kinase Troponin T NT-Pro-B Natriuret Pep Total Protein Albumin Triglycerides Cholesterol LDL Cholesterol Direct Urine Creatinine Urine Microalbumin Urine Chloride Urine Total Protein Crossmatch 04/02/18 04/02/18 04/02/18 07:52 12:36 16:36 WBC RBC Hgb Hct MCV MCH MCHC RDW Plt Count Lymph % (Auto) [place] % (Auto) Lymph # [place] # Seg Neutrophils % Seg Neuts % (Manual) Lymphocytes % (Manual) Monocytes % (Manual) Seg Neutrophils # Lymphocytes # (Manual) Monocytes # (Manual) POC ABG pH POC ABG pCO2 POC ABG pO2 VBG pH Sodium Potassium Chloride Carbon Dioxide BUN 28 H Creatinine Glucose 115 H POC Glucose 259 H 297 H Hemoglobin A1c Lactic Acid Calcium 7.3 L Phosphorus TIBC Transferrin Ferritin AST Total Creatine Kinase Troponin T NT-Pro-B Natriuret Pep Total Protein Albumin Triglycerides Cholesterol LDL Cholesterol Direct Urine Creatinine Urine Microalbumin Urine Chloride Urine Total Protein Crossmatch 04/02/18 04/03/18 04/03/18 22:01 04:20 04:46 WBC RBC Hgb Hct MCV MCH MCHC RDW Plt Count Lymph % (Auto) [place] % (Auto) Lymph # [place] # Seg Neutrophils % Seg Neuts % (Manual) Lymphocytes % (Manual) Monocytes % (Manual) Seg Neutrophils # Lymphocytes # (Manual) Monocytes # (Manual) POC ABG pH POC ABG pCO2 POC ABG pO2 VBG pH Sodium Potassium Chloride Carbon Dioxide BUN Creatinine Glucose POC Glucose 206 H < 40 L 64 L Hemoglobin A1c Lactic Acid Calcium Phosphorus TIBC Transferrin Ferritin AST Total Creatine Kinase Troponin T NT-Pro-B Natriuret Pep Total Protein Albumin Triglycerides Cholesterol LDL Cholesterol Direct Urine Creatinine Urine Microalbumin Urine Chloride Urine Total Protein Crossmatch 04/03/18 04/03/18 04/03/18 05:46 05:46 05:57 WBC RBC 2.72 L Hgb 7.6 L Hct 22.4 L MCV 83 L MCH MCHC RDW Plt Count Lymph % (Auto) [place] % (Auto) Lymph # [place] # Seg Neutrophils % Seg Neuts % (Manual) Lymphocytes % (Manual) 13.0 L Monocytes % (Manual) 19.0 H Seg Neutrophils # Lymphocytes # (Manual) 0.9 L Monocytes # (Manual) 1.3 H POC ABG pH POC ABG pCO2 POC ABG pO2 VBG pH Sodium Potassium Chloride 110.7 H Carbon Dioxide BUN 24 H Creatinine Glucose 45 L POC Glucose < 40 L Hemoglobin A1c Lactic Acid Calcium 7.3 L Phosphorus TIBC Transferrin Ferritin AST Total Creatine Kinase Troponin T NT-Pro-B Natriuret Pep Total Protein Albumin Triglycerides Cholesterol LDL Cholesterol Direct Urine Creatinine Urine Microalbumin Urine Chloride Urine Total Protein Crossmatch 04/03/18 04/03/18 04/03/18 07:04 09:17 11:34 WBC RBC Hgb Hct MCV MCH MCHC RDW Plt Count Lymph % (Auto) [place] % (Auto) Lymph # [place] # Seg Neutrophils % Seg Neuts % (Manual) Lymphocytes % (Manual) Monocytes % (Manual) Seg Neutrophils # Lymphocytes # (Manual) Monocytes # (Manual) POC ABG pH POC ABG pCO2 POC ABG pO2 VBG pH Sodium Potassium Chloride Carbon Dioxide BUN Creatinine Glucose POC Glucose 44 L 107 H 196 H Hemoglobin A1c Lactic Acid Calcium Phosphorus TIBC Transferrin Ferritin AST Total Creatine Kinase Troponin T NT-Pro-B Natriuret Pep Total Protein Albumin Triglycerides Cholesterol LDL Cholesterol Direct Urine Creatinine Urine Microalbumin Urine Chloride Urine Total Protein Crossmatch 04/03/18 04/03/18 04/04/18 16:48 20:25 06:05 WBC RBC 2.49 L Hgb 6.9 L Hct 20.8 L MCV 83 L MCH MCHC RDW Plt Count Lymph % (Auto) [place] % (Auto) Lymph # [place] # Seg Neutrophils % Seg Neuts % (Manual) Lymphocytes % (Manual) Monocytes % (Manual) 23.0 H Seg Neutrophils # Lymphocytes # (Manual) 0.7 L Monocytes # (Manual) 1.2 H POC ABG pH POC ABG pCO2 POC ABG pO2 VBG pH Sodium Potassium Chloride Carbon Dioxide BUN Creatinine Glucose POC Glucose 251 H 211 H Hemoglobin A1c Lactic Acid Calcium Phosphorus TIBC Transferrin Ferritin AST Total Creatine Kinase Troponin T NT-Pro-B Natriuret Pep Total Protein Albumin Triglycerides Cholesterol LDL Cholesterol Direct Urine Creatinine Urine Microalbumin Urine Chloride Urine Total Protein Crossmatch 04/04/18 04/04/18 04/04/18 06:05 06:06 20:14 WBC RBC Hgb Hct MCV MCH MCHC RDW Plt Count Lymph % (Auto) [place] % (Auto) Lymph # [place] # Seg Neutrophils % Seg Neuts % (Manual) Lymphocytes % (Manual) Monocytes % (Manual) Seg Neutrophils # Lymphocytes # (Manual) Monocytes # (Manual) POC ABG pH POC ABG pCO2 POC ABG pO2 VBG pH Sodium Potassium Chloride 109.8 H Carbon Dioxide BUN 22 H Creatinine 1.7 H Glucose 260 H POC Glucose 312 H Hemoglobin A1c Lactic Acid Calcium 7.2 L Phosphorus TIBC Transferrin Ferritin AST Total Creatine Kinase Troponin T NT-Pro-B Natriuret Pep Total Protein Albumin Triglycerides Cholesterol LDL Cholesterol Direct Urine Creatinine Urine Microalbumin Urine Chloride Urine Total Protein Crossmatch See Detail 04/04/18 04/05/18 04/05/18 22:23 06:10 06:10 WBC RBC 2.97 L Hgb 8.6 L Hct 25.0 L MCV MCH MCHC RDW Plt Count Lymph % (Auto) [place] % (Auto) 15.9 H Lymph # [place] # 1.2 H Seg Neutrophils % Seg Neuts % (Manual) Lymphocytes % (Manual) Monocytes % (Manual) Seg Neutrophils # Lymphocytes # (Manual) Monocytes # (Manual) POC ABG pH POC ABG pCO2 POC ABG pO2 VBG pH Sodium Potassium Chloride 108.4 H Carbon Dioxide 20 L BUN Creatinine 1.9 H Glucose 42 L POC Glucose 116 H Hemoglobin A1c Lactic Acid Calcium 7.3 L Phosphorus TIBC Transferrin Ferritin AST Total Creatine Kinase Troponin T NT-Pro-B Natriuret Pep Total Protein 5.7 L Albumin 2.3 L Triglycerides Cholesterol LDL Cholesterol Direct Urine Creatinine Urine Microalbumin Urine Chloride Urine Total Protein Crossmatch 04/05/18 04/05/18 04/05/18 06:18 06:20 12:17 WBC RBC Hgb Hct MCV MCH MCHC RDW Plt Count Lymph % (Auto) [place] % (Auto) Lymph # [place] # Seg Neutrophils % Seg Neuts % (Manual) Lymphocytes % (Manual) Monocytes % (Manual) Seg Neutrophils # Lymphocytes # (Manual) Monocytes # (Manual) POC ABG pH POC ABG pCO2 POC ABG pO2 VBG pH Sodium Potassium Chloride Carbon Dioxide BUN Creatinine Glucose POC Glucose 44 L 123 H Hemoglobin A1c Lactic Acid Calcium Phosphorus TIBC Transferrin Ferritin AST Total Creatine Kinase Troponin T NT-Pro-B Natriuret Pep Total Protein Albumin Triglycerides Cholesterol LDL Cholesterol Direct Urine Creatinine 112.0 H Urine Microalbumin Urine Chloride Urine Total Protein Crossmatch 04/05/18 04/05/18 04/06/18 16:33 21:29 07:06 WBC RBC Hgb Hct MCV MCH MCHC RDW Plt Count Lymph % (Auto) [place] % (Auto) Lymph # [place] # Seg Neutrophils % Seg Neuts % (Manual) Lymphocytes % (Manual) Monocytes % (Manual) Seg Neutrophils # Lymphocytes # (Manual) Monocytes # (Manual) POC ABG pH POC ABG pCO2 POC ABG pO2 VBG pH Sodium Potassium Chloride Carbon Dioxide BUN Creatinine Glucose POC Glucose 268 H 207 H 42 L Hemoglobin A1c Lactic Acid Calcium Phosphorus TIBC Transferrin Ferritin AST Total Creatine Kinase Troponin T NT-Pro-B Natriuret Pep Total Protein Albumin Triglycerides Cholesterol LDL Cholesterol Direct Urine Creatinine Urine Microalbumin Urine Chloride Urine Total Protein Crossmatch 04/06/18 04/06/18 04/06/18 11:54 16:40 21:14 WBC RBC Hgb Hct MCV MCH MCHC RDW Plt Count Lymph % (Auto) [place] % (Auto) Lymph # [place] # Seg Neutrophils % Seg Neuts % (Manual) Lymphocytes % (Manual) Monocytes % (Manual) Seg Neutrophils # Lymphocytes # (Manual) Monocytes # (Manual) POC ABG pH POC ABG pCO2 POC ABG pO2 VBG pH Sodium Potassium Chloride Carbon Dioxide BUN Creatinine Glucose POC Glucose 177 H 188 H 336 H Hemoglobin A1c Lactic Acid Calcium Phosphorus TIBC Transferrin Ferritin AST Total Creatine Kinase Troponin T NT-Pro-B Natriuret Pep Total Protein Albumin Triglycerides Cholesterol LDL Cholesterol Direct Urine Creatinine Urine Microalbumin Urine Chloride Urine Total Protein Crossmatch 04/07/18 04/07/18 04/07/18 05:46 05:46 05:46 WBC RBC 2.92 L Hgb 8.2 L Hct 25.0 L MCV MCH MCHC RDW Plt Count Lymph % (Auto) [place] % (Auto) 12.9 H Lymph # 1.1 L [place] # Seg Neutrophils % Seg Neuts % (Manual) Lymphocytes % (Manual) Monocytes % (Manual) Seg Neutrophils # Lymphocytes # (Manual) Monocytes # (Manual) POC ABG pH POC ABG pCO2 POC ABG pO2 VBG pH Sodium 131 L D Potassium Chloride 96.6 L Carbon Dioxide 19 L BUN 26 H Creatinine 2.7 H Glucose 247 H POC Glucose Hemoglobin A1c Lactic Acid Calcium 7.7 L Phosphorus TIBC Transferrin Ferritin AST Total Creatine Kinase Troponin T NT-Pro-B Natriuret Pep 1858 H Total Protein Albumin Triglycerides Cholesterol LDL Cholesterol Direct Urine Creatinine Urine Microalbumin Urine Chloride Urine Total Protein Crossmatch 04/07/18 04/07/18 04/07/18 06:00 11:31 14:00 WBC RBC Hgb Hct MCV MCH MCHC RDW Plt Count Lymph % (Auto) [place] % (Auto) Lymph # [place] # Seg Neutrophils % Seg Neuts % (Manual) Lymphocytes % (Manual) Monocytes % (Manual) Seg Neutrophils # Lymphocytes # (Manual) Monocytes # (Manual) POC ABG pH POC ABG pCO2 POC ABG pO2 VBG pH Sodium Potassium Chloride Carbon Dioxide BUN Creatinine Glucose POC Glucose 288 H 373 H Hemoglobin A1c Lactic Acid Calcium Phosphorus TIBC Transferrin Ferritin AST Total Creatine Kinase Troponin T NT-Pro-B Natriuret Pep Total Protein Albumin Triglycerides Cholesterol LDL Cholesterol Direct Urine Creatinine 76.8 H Urine Microalbumin Urine Chloride 91.4 L Urine Total Protein Crossmatch 04/07/18 04/07/18 04/07/18 16:12 18:32 22:00 WBC RBC Hgb Hct MCV MCH MCHC RDW Plt Count Lymph % (Auto) [place] % (Auto) Lymph # [place] # Seg Neutrophils % Seg Neuts % (Manual) Lymphocytes % (Manual) Monocytes % (Manual) Seg Neutrophils # Lymphocytes # (Manual) Monocytes # (Manual) POC ABG pH POC ABG pCO2 POC ABG pO2 VBG pH Sodium Potassium Chloride Carbon Dioxide BUN Creatinine Glucose POC Glucose 280 H 269 H 145 H Hemoglobin A1c Lactic Acid Calcium Phosphorus TIBC Transferrin Ferritin AST Total Creatine Kinase Troponin T NT-Pro-B Natriuret Pep Total Protein Albumin Triglycerides Cholesterol LDL Cholesterol Direct Urine Creatinine Urine Microalbumin Urine Chloride Urine Total Protein Crossmatch 04/08/18 04/08/18 04/08/18 05:38 05:38 06:08 WBC RBC 2.76 L Hgb 7.8 L Hct 23.7 L MCV MCH MCHC RDW Plt Count Lymph % (Auto) [place] % (Auto) 14.7 H Lymph # [place] # 0.9 H Seg Neutrophils % Seg Neuts % (Manual) Lymphocytes % (Manual) Monocytes % (Manual) Seg Neutrophils # Lymphocytes # (Manual) Monocytes # (Manual) POC ABG pH POC ABG pCO2 POC ABG pO2 VBG pH Sodium 146 H D Potassium Chloride 113.3 H Carbon Dioxide 21 L BUN 28 H Creatinine 3.2 H Glucose 113 H POC Glucose 119 H Hemoglobin A1c Lactic Acid Calcium 8.0 L Phosphorus TIBC Transferrin Ferritin AST Total Creatine Kinase Troponin T NT-Pro-B Natriuret Pep Total Protein 6.0 L Albumin 2.9 L Triglycerides Cholesterol LDL Cholesterol Direct Urine Creatinine Urine Microalbumin Urine Chloride Urine Total Protein Crossmatch 04/08/18 04/08/18 04/08/18 12:00 17:07 17:30 WBC RBC Hgb Hct MCV MCH MCHC RDW Plt Count Lymph % (Auto) [place] % (Auto) Lymph # [place] # Seg Neutrophils % Seg Neuts % (Manual) Lymphocytes % (Manual) Monocytes % (Manual) Seg Neutrophils # Lymphocytes # (Manual) Monocytes # (Manual) POC ABG pH POC ABG pCO2 POC ABG pO2 VBG pH Sodium Potassium Chloride Carbon Dioxide BUN Creatinine Glucose POC Glucose 232 H 230 H Hemoglobin A1c Lactic Acid Calcium Phosphorus TIBC Transferrin Ferritin AST Total Creatine Kinase Troponin T NT-Pro-B Natriuret Pep Total Protein Albumin Triglycerides Cholesterol LDL Cholesterol Direct Urine Creatinine 63.0 H Urine Microalbumin 206.9 H Urine Chloride Urine Total Protein 288 H Crossmatch 04/08/18 04/09/18 04/09/18 21:06 06:47 10:08 WBC RBC Hgb Hct MCV MCH MCHC RDW Plt Count Lymph % (Auto) [place] % (Auto) Lymph # [place] # Seg Neutrophils % Seg Neuts % (Manual) Lymphocytes % (Manual) Monocytes % (Manual) Seg Neutrophils # Lymphocytes # (Manual) Monocytes # (Manual) POC ABG pH POC ABG pCO2 POC ABG pO2 VBG pH Sodium Potassium Chloride 107.9 H Carbon Dioxide 21 L BUN 29 H Creatinine 3.1 H Glucose POC Glucose 243 H 54 L Hemoglobin A1c Lactic Acid Calcium 7.9 L Phosphorus TIBC Transferrin Ferritin AST Total Creatine Kinase Troponin T NT-Pro-B Natriuret Pep Total Protein Albumin Triglycerides Cholesterol LDL Cholesterol Direct Urine Creatinine Urine Microalbumin Urine Chloride Urine Total Protein Crossmatch 04/09/18 04/09/18 04/09/18 12:11 16:25 21:14 WBC RBC Hgb Hct MCV MCH MCHC RDW Plt Count Lymph % (Auto) [place] % (Auto) Lymph # [place] # Seg Neutrophils % Seg Neuts % (Manual) Lymphocytes % (Manual) Monocytes % (Manual) Seg Neutrophils # Lymphocytes # (Manual) Monocytes # (Manual) POC ABG pH POC ABG pCO2 POC ABG pO2 VBG pH Sodium Potassium Chloride Carbon Dioxide BUN Creatinine Glucose POC Glucose 108 H 235 H 224 H Hemoglobin A1c Lactic Acid Calcium Phosphorus TIBC Transferrin Ferritin AST Total Creatine Kinase Troponin T NT-Pro-B Natriuret Pep Total Protein Albumin Triglycerides Cholesterol LDL Cholesterol Direct Urine Creatinine Urine Microalbumin Urine Chloride Urine Total Protein Crossmatch 04/10/18 04/10/18 04/10/18 06:33 09:05 11:12 WBC RBC 2.96 L Hgb 8.4 L Hct 25.7 L MCV MCH MCHC RDW Plt Count Lymph % (Auto) [place] % (Auto) 13.4 H Lymph # 0.9 L [place] # Seg Neutrophils % Seg Neuts % (Manual) Lymphocytes % (Manual) Monocytes % (Manual) Seg Neutrophils # Lymphocytes # (Manual) Monocytes # (Manual) POC ABG pH POC ABG pCO2 POC ABG pO2 VBG pH Sodium Potassium Chloride Carbon Dioxide 20 L BUN 31 H Creatinine 3.1 H Glucose 145 H POC Glucose 112 H Hemoglobin A1c Lactic Acid Calcium 7.9 L Phosphorus TIBC Transferrin Ferritin AST Total Creatine Kinase Troponin T NT-Pro-B Natriuret Pep Total Protein Albumin Triglycerides Cholesterol LDL Cholesterol Direct Urine Creatinine Urine Microalbumin Urine Chloride Urine Total Protein Crossmatch 04/10/18 04/10/18 04/10/18 11:57 21:05 21:39 WBC RBC Hgb Hct MCV MCH MCHC RDW Plt Count Lymph % (Auto) [place] % (Auto) Lymph # [place] # Seg Neutrophils % Seg Neuts % (Manual) Lymphocytes % (Manual) Monocytes % (Manual) Seg Neutrophils # Lymphocytes # (Manual) Monocytes # (Manual) POC ABG pH POC ABG pCO2 POC ABG pO2 VBG pH Sodium Potassium Chloride Carbon Dioxide BUN Creatinine Glucose 67 L POC Glucose 212 H < 40 L Hemoglobin A1c Lactic Acid Calcium Phosphorus TIBC Transferrin Ferritin AST Total Creatine Kinase Troponin T NT-Pro-B Natriuret Pep Total Protein Albumin Triglycerides Cholesterol LDL Cholesterol Direct Urine Creatinine Urine Microalbumin Urine Chloride Urine Total Protein Crossmatch 04/10/18 04/11/18 04/11/18 21:42 05:20 05:20 WBC RBC 2.93 L Hgb 8.1 L Hct 25.1 L MCV MCH MCHC RDW Plt Count Lymph % (Auto) [place] % (Auto) 13.5 H Lymph # 0.9 L [place] # Seg Neutrophils % Seg Neuts % (Manual) Lymphocytes % (Manual) Monocytes % (Manual) Seg Neutrophils # Lymphocytes # (Manual) Monocytes # (Manual) POC ABG pH POC ABG pCO2 POC ABG pO2 VBG pH Sodium Potassium 5.1 H Chloride Carbon Dioxide 21 L BUN 30 H Creatinine 2.9 H Glucose 286 H POC Glucose 126 H Hemoglobin A1c Lactic Acid Calcium 7.5 L Phosphorus TIBC Transferrin Ferritin AST Total Creatine Kinase Troponin T NT-Pro-B Natriuret Pep Total Protein Albumin Triglycerides Cholesterol LDL Cholesterol Direct Urine Creatinine Urine Microalbumin Urine Chloride Urine Total Protein Crossmatch 04/11/18 04/11/18 04/11/18 05:28 11:18 18:02 WBC RBC Hgb Hct MCV MCH MCHC RDW Plt Count Lymph % (Auto) [place] % (Auto) Lymph # [place] # Seg Neutrophils % Seg Neuts % (Manual) Lymphocytes % (Manual) Monocytes % (Manual) Seg Neutrophils # Lymphocytes # (Manual) Monocytes # (Manual) POC ABG pH POC ABG pCO2 POC ABG pO2 VBG pH Sodium Potassium Chloride Carbon Dioxide BUN Creatinine Glucose POC Glucose 320 H 302 H 269 H Hemoglobin A1c Lactic Acid Calcium Phosphorus TIBC Transferrin Ferritin AST Total Creatine Kinase Troponin T NT-Pro-B Natriuret Pep Total Protein Albumin Triglycerides Cholesterol LDL Cholesterol Direct Urine Creatinine Urine Microalbumin Urine Chloride Urine Total Protein Crossmatch 04/11/18 04/12/18 04/12/18 21:51 04:46 04:46 WBC RBC 2.75 L Hgb 7.8 L Hct 23.5 L MCV MCH MCHC RDW Plt Count Lymph % (Auto) [place] % (Auto) Lymph # [place] # Seg Neutrophils % Seg Neuts % (Manual) 73.0 H Lymphocytes % (Manual) 11.0 L Monocytes % (Manual) 15.0 H Seg Neutrophils # Lymphocytes # (Manual) 0.5 L Monocytes # (Manual) POC ABG pH POC ABG pCO2 POC ABG pO2 VBG pH Sodium Potassium Chloride Carbon Dioxide BUN 32 H Creatinine 3.1 H Glucose 64 L POC Glucose 183 H Hemoglobin A1c Lactic Acid Calcium 7.9 L Phosphorus TIBC Transferrin Ferritin AST Total Creatine Kinase Troponin T NT-Pro-B Natriuret Pep Total Protein Albumin Triglycerides Cholesterol LDL Cholesterol Direct Urine Creatinine Urine Microalbumin Urine Chloride Urine Total Protein Crossmatch 04/12/18 04/12/18 04/12/18 05:32 13:21 16:16 WBC RBC Hgb Hct MCV MCH MCHC RDW Plt Count Lymph % (Auto) [place] % (Auto) Lymph # [place] # Seg Neutrophils % Seg Neuts % (Manual) Lymphocytes % (Manual) Monocytes % (Manual) Seg Neutrophils # Lymphocytes # (Manual) Monocytes # (Manual) POC ABG pH POC ABG pCO2 POC ABG pO2 VBG pH Sodium Potassium Chloride Carbon Dioxide BUN Creatinine Glucose POC Glucose 54 L 366 H 310 H Hemoglobin A1c Lactic Acid Calcium Phosphorus TIBC Transferrin Ferritin AST Total Creatine Kinase Troponin T NT-Pro-B Natriuret Pep Total Protein Albumin Triglycerides Cholesterol LDL Cholesterol Direct Urine Creatinine Urine Microalbumin Urine Chloride Urine Total Protein Crossmatch 04/12/18 04/13/18 04/13/18 21:23 05:11 05:11 WBC RBC 2.81 L Hgb 8.0 L Hct 24.4 L MCV MCH MCHC RDW Plt Count Lymph % (Auto) [place] % (Auto) Lymph # [place] # Seg Neutrophils % Seg Neuts % (Manual) Lymphocytes % (Manual) Monocytes % (Manual) 14.0 H Seg Neutrophils # Lymphocytes # (Manual) 1.1 L Monocytes # (Manual) POC ABG pH POC ABG pCO2 POC ABG pO2 VBG pH Sodium Potassium Chloride Carbon Dioxide BUN 29 H Creatinine 2.8 H Glucose 73 L POC Glucose 201 H Hemoglobin A1c Lactic Acid Calcium 7.9 L Phosphorus TIBC Transferrin Ferritin AST Total Creatine Kinase Troponin T NT-Pro-B Natriuret Pep Total Protein Albumin Triglycerides Cholesterol LDL Cholesterol Direct Urine Creatinine Urine Microalbumin Urine Chloride Urine Total Protein Crossmatch 04/13/18 12:12 WBC RBC Hgb Hct MCV MCH MCHC RDW Plt Count Lymph % (Auto) [place] % (Auto) Lymph # [place] # Seg Neutrophils % Seg Neuts % (Manual) Lymphocytes % (Manual) Monocytes % (Manual) Seg Neutrophils # Lymphocytes # (Manual) Monocytes # (Manual) POC ABG pH POC ABG pCO2 POC ABG pO2 VBG pH Sodium Potassium Chloride Carbon Dioxide BUN Creatinine Glucose POC Glucose 200 H Hemoglobin A1c Lactic Acid Calcium Phosphorus TIBC Transferrin Ferritin AST Total Creatine Kinase Troponin T NT-Pro-B Natriuret Pep Total Protein Albumin Triglycerides Cholesterol LDL Cholesterol Direct Urine Creatinine Urine Microalbumin Urine Chloride Urine Total Protein Crossmatch Chest x-ray: image reviewed (improved interstitial edema from 04/06 CXR but still with small bilateral effusions) Allied health notes reviewed: nursing
[2018-04-13] MEDS: SODIUM CHLORIDE FLUSH SYRINGE 10 ML IV SCH ×2 (13:11→23:45)
--- NOTE | 2018-04-13 15:06 | XRay Report ---
FINAL REPORT PROCEDURE: XR CHEST ROUTINE 2V TECHNIQUE: PA and lateral chest radiographs were obtained. CPT 95515 HISTORY: Follow up on pulmonary infiltrates. COMPARISON: Prior chest x-ray 03/29/2018 FINDINGS: Small bilateral pleural effusions have developed since the prior study left side greater than right. Small amount of patchy densities present in the lung bases left side greater than right suggesting residual atelectasis or infiltrate. Heart size upper normal. Pulmonary vasculature not significantly distended. No acute bone abnormalities are seen. IMPRESSION: Interval development small bilateral pleural effusions left side greater than right. Patchy alveolar densities in the bases suggest a small amount of residual atelectasis or infiltrate. The left side is slightly greater than the right. Heart size upper normal. Interval removal right jugular central venous line. No evidence of pneumothorax..
--- NOTE | 2018-04-13 18:38 | Progress Note ---
Assessment and Plan - Patient Problems (1) BELKIS (acute kidney injury) Current Visit: Yes Status: Acute Plan to address problem: Acute kidney injury workup still in progress. Currently workup for vasculitis. Several markers have returned negative. Renal following. (2) Anasarca Current Visit: Yes Status: Acute Plan to address problem: Patient continues to have anasarca continued diuresis per renal. Monitor strict ins and outs. (3) Anemia Current Visit: Yes Status: Acute Plan to address problem: Multifactorial chronic disease and anemia. (4) DKA (diabetic ketoacidoses) Current Visit: Yes Status: Acute Qualifiers: Diabetes mellitus type: type 1 Diabetes mellitus complication detail: with coma Qualified Code(s): E10.11 - Type 1 diabetes mellitus with ketoacidosis with coma Plan to address problem: DKA resolved patient's Accu-Cheks are much improved. In use sliding-scale insulin and long-acting insulin. (5) Superficial venous thrombosis of both upper extremities Current Visit: Yes Status: Acute Plan to address problem: Beneficial venous thrombosis bilateral upper extremity and anasarca. Could be hypercoagulable state versus autoimmune disease that is causing it. Workup in progress. History Interval history: Patient states he feels somewhat better today still swollen. Talk to him about the progress on the workup. Patient understands Hospitalist Physical - Constitutional Vitals: Temp Pulse Resp BP Pulse Ox 98.3 F 58 L 20 160/80 100 04/13/18 14:56 04/13/18 17:38 04/13/18 17:38 04/13/18 17:38 04/13/18 07:19 General appearance: Present: no acute distress, well-nourished, obese - EENT Eyes: Present: PERRL, EOM intact ENT: hearing intact, clear oral mucosa, dentition normal - Neck Neck: Present: supple, normal ROM - Respiratory Respiratory: bilateral: CTA - Extremities Extremity abnormal: edema, tenderness (edema upper extremity and lower extremity.), other - Abdominal General gastrointestinal: soft, non-tender, non-distended, normal bowel sounds - Integumentary Integumentary: Present: clear, warm, dry. Absent: jaundice, rash, clammy - Psychiatric Psychiatric: appropriate mood/affect, intact judgment & insight - Neurologic Neurologic: CNII-XII intact, moves all extremities Results - Labs CBC & Chem 7: 04/13/18 05:11 04/13/18 05:11 Labs: Laboratory Last Values WBC 4.6 K/mm3 (4.5-11.0) 04/13/18 05:11 RBC 2.81 M/mm3 (3.65-5.03) L 04/13/18 05:11 Hgb 8.0 gm/dl (11.8-15.2) L 04/13/18 05:11 Hct 24.4 % (35.5-45.6) L 04/13/18 05:11 MCV 87 fl (84-94) 04/13/18 05:11 MCH 29 pg (28-32) 04/13/18 05:11 MCHC 33 % (32-34) 04/13/18 05:11 RDW 14.6 % (13.2-15.2) 04/13/18 05:11 Plt Count 339 K/mm3 (140-440) 04/13/18 05:11 Lymph % (Auto) 15.9 % (13.4-35.0) 04/11/18 05:20 [place] % (Auto) [place] 04/13/18 05:11 Eos % (Auto) 2.9 % (0.0-4.3) 04/11/18 05:20 Baso % (Auto) 0.7 % (0.0-1.8) 04/11/18 05:20 Lymph # 0.9 K/mm3 (1.2-5.4) L 04/11/18 05:20 [place] # 0.8 K/mm3 (0.0-0.8) 04/11/18 05:20 Eos # 0.2 K/mm3 (0.0-0.4) 04/11/18 05:20 Baso # 0.0 K/mm3 (0.0-0.1) 04/11/18 05:20 Add Manual Diff Complete 04/13/18 05:11 Total Counted 100 04/13/18 05:11 Seg Neutrophils % 67.0 % (40.0-70.0) 04/11/18 05:20 Seg Neuts % (Manual) 60.0 % (40.0-70.0) 04/13/18 05:11 Band Neutrophils % 0 % 04/13/18 05:11 Lymphocytes % (Manual) 24.0 % (13.4-35.0) 04/13/18 05:11 Reactive Lymphs % (Man) 0 % 04/13/18 05:11 Monocytes % (Manual) 14.0 % (0.0-7.3) H 04/13/18 05:11 Eosinophils % (Manual) 1.0 % (0.0-4.3) 04/13/18 05:11 Basophils % (Manual) 1.0 % (0.0-1.8) 04/13/18 05:11 Metamyelocytes % 0 % 04/13/18 05:11 Myelocytes % 0 % 04/13/18 05:11 Promyelocytes % 0 % 04/13/18 05:11 Blast Cells % 0 % 04/13/18 05:11 Nucleated RBC % Not Reportable 04/13/18 05:11 Seg Neutrophils # 3.9 K/mm3 (1.8-7.7) 04/11/18 05:20 Seg Neutrophils # Man 2.8 K/mm3 (1.8-7.7) 04/13/18 05:11 Band Neutrophils # 0.0 K/mm3 04/13/18 05:11 Lymphocytes # (Manual) 1.1 K/mm3 (1.2-5.4) L 04/13/18 05:11 Abs React Lymphs (Man) 0.0 K/mm3 04/13/18 05:11 Monocytes # (Manual) 0.6 K/mm3 (0.0-0.8) 04/13/18 05:11 Eosinophils # (Manual) 0.0 K/mm3 (0.0-0.4) 04/13/18 05:11 Basophils # (Manual) 0.0 K/mm3 (0.0-0.1) 04/13/18 05:11 Metamyelocytes # 0.0 K/mm3 04/13/18 05:11 Myelocytes # 0.0 K/mm3 04/13/18 05:11 Promyelocytes # 0.0 K/mm3 04/13/18 05:11 Blast Cells # 0.0 K/mm3 04/13/18 05:11 WBC Morphology Not Reportable 04/13/18 05:11 Hypersegmented Neuts Not Reportable 04/13/18 05:11 Hyposegmented Neuts Not Reportable 04/13/18 05:11 Hypogranular Neuts Not Reportable 04/13/18 05:11 Smudge Cells Not Reportable 04/13/18 05:11 Toxic Granulation Not Reportable 04/13/18 05:11 Toxic Vacuolation Not Reportable 04/13/18 05:11 Dohle Bodies Not Reportable 04/13/18 05:11 Pelger-Huet Anomaly Not Reportable 04/13/18 05:11 Loi Rods Not Reportable 04/13/18 05:11 Platelet Estimate Consistent w auto 04/13/18 05:11 Clumped Platelets Not Reportable 04/13/18 05:11 Plt Clumps, EDTA Not Reportable 04/13/18 05:11 Large Platelets Not Reportable 04/13/18 05:11 Giant Platelets Not Reportable 04/13/18 05:11 Platelet Satelliting Not Reportable 04/13/18 05:11 Plt Morphology Comment Not Reportable 04/13/18 05:11 RBC Morphology Not Reportable 04/13/18 05:11 Dimorphic RBCs Not Reportable 04/13/18 05:11 Polychromasia Not Reportable 04/13/18 05:11 Hypochromasia Not Reportable 04/13/18 05:11 Poikilocytosis Not Reportable 04/13/18 05:11 Anisocytosis 1+ 04/13/18 05:11 Microcytosis Not Reportable 04/13/18 05:11 Macrocytosis Not Reportable 04/13/18 05:11 Spherocytes Not Reportable 04/13/18 05:11 Pappenheimer Bodies Not Reportable 04/13/18 05:11 Sickle Cells Not Reportable 04/13/18 05:11 Target Cells Not Reportable 04/13/18 05:11 Tear Drop Cells Not Reportable 04/13/18 05:11 Ovalocytes Not Reportable 04/13/18 05:11 Helmet Cells Not Reportable 04/13/18 05:11 [place] Bodies Not Reportable 04/13/18 05:11 Sylvia Rings Not Reportable 04/13/18 05:11 [place] Cells Not Reportable 04/13/18 05:11 Bite Cells Not Reportable 04/13/18 05:11 Crenated Cell Not Reportable 04/13/18 05:11 Elliptocytes Not Reportable 04/13/18 05:11 Acanthocytes (Spur) Not Reportable 04/13/18 05:11 Rouleaux Not Reportable 04/13/18 05:11 Hemoglobin C Crystals Not Reportable 04/13/18 05:11 Schistocytes Not Reportable 04/13/18 05:11 Malaria parasites Not Reportable 04/13/18 05:11 Lev Bodies Not Reportable 04/13/18 05:11 Hem Pathologist Commnt No 04/13/18 05:11 Lupus Anticoagulant see below 04/10/18 17:21 POC ABG pH 7.405 (7.35-7.45) 03/28/18 03:49 POC ABG pCO2 38.6 (35-45) 03/28/18 03:49 POC ABG pO2 102 (80-105) 03/28/18 03:49 POC ABG HCO3 24.2 03/28/18 03:49 POC ABG Total CO2 25 03/28/18 03:49 POC ABG O2 Sat 98 03/28/18 03:49 POC ABG Base Excess 0 03/28/18 03:49 VBG pH 7.000 (7.320-7.420) L* 03/25/18 14:41 FiO2 25 % 03/28/18 03:49 Sodium 138 mmol/L (137-145) 04/13/18 05:11 Potassium 4.4 mmol/L (3.6-5.0) 04/13/18 05:11 Chloride 105.5 mmol/L (98-107) 04/13/18 05:11 Carbon Dioxide 22 mmol/L (22-30) 04/13/18 05:11 Anion Gap 15 mmol/L 04/13/18 05:11 BUN 29 mg/dL (9-20) H 04/13/18 05:11 Creatinine 2.8 mg/dL (0.8-1.5) H 04/13/18 05:11 Estimated GFR 29 ml/min 04/13/18 05:11 BUN/Creatinine Ratio 10 % 04/13/18 05:11 Glucose 73 mg/dL (75-100) L 04/13/18 05:11 POC Glucose 168 (70-105) H 04/13/18 16:35 Hemoglobin A1c 8.9 % (4-6) H 03/25/18 18:55 Lactic Acid 1.80 mmol/L (0.7-2.0) 03/26/18 04:25 Calcium 7.9 mg/dL (8.4-10.2) L 04/13/18 05:11 Phosphorus 4.00 mg/dL (2.5-4.5) 04/13/18 05:11 Magnesium 2.00 mg/dL (1.7-2.3) 04/08/18 05:38 Iron 54 ug/dL (49-181) 03/28/18 04:35 TIBC 115 mcg/dL (250-450) L 03/28/18 04:35 Transferrin 94 mg/dl (180-329) L 03/28/18 04:35 Ferritin 412.1 ng/mL (13.0-400.0) H 03/28/18 04:35 Total Bilirubin 0.40 mg/dL (0.1-1.2) 04/08/18 05:38 Direct Bilirubin < 0.2 mg/dL (0-0.2) 03/25/18 14:08 Indirect Bilirubin 0.1 mg/dL 03/25/18 14:08 AST 20 units/L (5-40) 04/08/18 05:38 ALT 17 units/L (7-56) 04/08/18 05:38 Alkaline Phosphatase 75 units/L (35-129) 04/08/18 05:38 Total Creatine Kinase 226 units/L (55-170) H 03/25/18 18:09 CK-MB (CK-2) 3.7 ng/mL (0.0-4.0) 03/25/18 18:09 CK-MB (CK-2) Rel Index 1.6 (0-4) 03/25/18 18:09 Troponin T 0.033 ng/mL (0.00-0.029) H 03/25/18 18:09 NT-Pro-B Natriuret Pep 1858 pg/mL (0-900) H 04/07/18 05:46 Total Protein 6.0 g/dL (6.3-8.2) L 04/08/18 05:38 Albumin 2.9 g/dL (3.9-5) L 04/08/18 05:38 Albumin/Globulin Ratio 0.9 % 04/08/18 05:38 Triglycerides 185 mg/dL (2-149) H 03/25/18 18:09 Cholesterol 215 mg/dL (50-199) H 03/25/18 18:09 LDL Cholesterol Direct 144 mg/dL (50-130) H 03/25/18 18:09 HDL Cholesterol 48 mg/dL (40-59) 03/25/18 18:09 Cholesterol/HDL Ratio 4.47 % 03/25/18 18:09 Urine Color Yellow (Yellow) 04/08/18 17:30 Urine Turbidity Clear (Clear) 04/08/18 17:30 Urine pH 5.0 (5.0-7.0) 04/08/18 17:30 Ur Specific [place] 1.011 (1.003-1.030) 04/08/18 17:30 Urine Protein 100 mg/dl mg/dL (Negative) 04/08/18 17:30 Urine Glucose (UA) Neg mg/dL (Negative) 04/08/18 17:30 Urine Ketones Neg mg/dL (Negative) 04/08/18 17:30 Urine Blood Sm (Negative) 04/08/18 17:30 Urine Nitrite Neg (Negative) 04/08/18 17:30 Urine Bilirubin Neg (Negative) 04/08/18 17:30 Urine Urobilinogen < 2.0 mg/dL (<2.0) 04/08/18 17:30 Ur Leukocyte Esterase Neg (Negative) 04/08/18 17:30 Urine WBC (Auto) < 1.0 /HPF (0.0-6.0) 04/08/18 17:30 Urine RBC (Auto) 4.0 /HPF (0.0-6.0) 04/08/18 17:30 Urine Bacteria (Auto) 1+ /HPF (Negative) 04/08/18 17:30 Uric Acid Crystals 2+ 04/05/18 06:18 Hyaline Casts 1 /LPF 04/08/18 17:30 Urine Mucus Few /HPF 04/08/18 17:30 Urine Yeast (Budding) 1+ /HPF 04/05/18 06:18 Urine Eosinophils None seen (None Seen) 04/07/18 14:00 Urine Creatinine 63.0 mg/dL (0.1-20.0) H 04/08/18 17:30 Urine Microalbumin 206.9 mg/dL (0.1-34.0) H 04/08/18 17:30 Microalb/Creat Ratio 3284.1 ug/mg 04/08/18 17:30 Protein/Creatinin Ratio 4.57 04/08/18 17:30 Urine Sodium 94 mmol/L 04/07/18 14:00 Urine Chloride 91.4 mmolL (110-250) L 04/07/18 14:00 Urine Urea Nitrogen 215 04/07/18 14:00 Urine Total Protein 288 mg/dL (5-11.8) H 04/08/18 17:30 Random Vancomycin 8.9 ug/mL (0-40.0) 04/10/18 09:05 Urine Opiates Screen Presumptive negative 03/25/18 14:19 Urine Methadone Screen Presumptive negative 03/25/18 14:19 Ur Barbiturates Screen Presumptive negative 03/25/18 14:19 Ur Phencyclidine Scrn Presumptive negative 03/25/18 14:19 Ur Amphetamines Screen Presumptive negative 03/25/18 14:19 U Benzodiazepines Scrn Presumptive negative 03/25/18 14:19 Urine Cocaine Screen Presumptive negative 03/25/18 14:19 U Marijuana (THC) Screen Presumptive negative 03/25/18 14:19 Drugs of Abuse Note Disclamer 03/25/18 14:19 Immunofix Electrophor see below 04/10/18 17:21 Complement C3 118 mg/dL (82-185) 04/10/18 17:21 Complement C4 37 mg/dL (15-53) 04/10/18 17:21 Tot Complement (CH50) 60 U/mL (31-60) 04/10/18 17:21 Hepatitis A IgM Ab Non-reactive (NonReactive) 04/10/18 17:21 Hep Bs Antigen Non-reactive (Negative) 04/10/18 17:21 Hep B Core IgM Ab Non-reactive (NonReactive) 04/10/18 17:21 Hepatitis C Antibody Non-reactive (NonReactive) 04/10/18 17:21 HIV 1&2 Antibody Rapid Non react (Non React) 04/10/18 17:21 HIV P24 Antigen Non react (Non React) 04/10/18 17:21 Miscellaneous Test Flexitest 1 H 04/11/18 Unknown Blood Type O POSITIVE 04/04/18 20:14 Antibody Screen Negative 04/04/18 20:14 Crossmatch See Detail 04/04/18 20:14
[2018-04-14] MEDS: D50W (25GM) Syringe IV PRN (06:10)
[2018-04-14] MEDS: APRESOLINE PO SCH ×3 (06:22→22:41)
[2018-04-14] MEDS: HumuLIN R SUB-Q SCH ×5 (07:45→22:46)
--- NOTE | 2018-04-14 08:03 | Progress Note ---
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: Volume Overload: Hypoalbuminemia: -labs are pending this AM -Hepatitis panel and HIV negative with normal complement, rest of secondary GN and vasculitis are oending light chains pending -cont lasix to 40 mg PO BID -Renally dose meds -Strict intake and output -Obtain daily weight -Beard Catheter: No Acute Respiratory Failure: -Extubated -Pulmonology on board Essential Hypertension: -On clonidine, coreg, hydralazine, and minipress DKA: -Resolved Subjective Date of service: 04/14/18 Principal diagnosis: Acute hypoxic respiratory failure, DKA, BELKIS, Acute encephalopathy Interval history: urinating more since yesterday Objective - Vital Signs Vital signs: Vital Signs - 12hr 04/13/18 04/13/18 04/13/18 22:00 23:45 23:46 Temperature Pulse Rate 68 68 Respiratory 16 Rate Blood Pressure 185/74 185/74 O2 Sat by Pulse Oximetry 04/13/18 04/14/18 04/14/18 23:47 04:34 06:22 Temperature 99.1 F Pulse Rate 68 80 73 Respiratory 20 Rate Blood Pressure 185/74 169/84 200/83 O2 Sat by Pulse 96 Oximetry 04/14/18 07:13 Temperature 99.1 F Pulse Rate 77 Respiratory 20 Rate Blood Pressure 190/85 O2 Sat by Pulse 94 Oximetry - General Appearance General appearance: well-developed, well-nourished, appears stated age EENT: ATNC, PERRL, mucous membranes moist Neck: no JVD, no carotid bruit Respiratory: Present: Clear to Ascultation. Absent: Rales, Wheezes Cardiology: regular, S1S2 Gastrointestinal: normoactive bowel sounds, no tenderness, no distended Integumentary: no rash, warm and dry Neurologic: no focal deficit, no asterixis, alert and oriented x3 Musculoskeletal: other (1+ pitting edema in BLE) Psychiatric: mood/affect appropriate, cooperative - Lab 04/13/18 05:11 04/13/18 05:11 Most recent lab results Calcium 7.9 mg/dL (8.4-10.2) L 04/13/18 05:11 Phosphorus 4.00 mg/dL (2.5-4.5) 04/13/18 05:11 Magnesium 2.00 mg/dL (1.7-2.3) 04/08/18 05:38 Urine Creatinine 63.0 mg/dL (0.1-20.0) H 04/08/18 17:30 Urine Sodium 94 mmol/L 04/07/18 14:00 Urine Total Protein 288 mg/dL (5-11.8) H 04/08/18 17:30
[2018-04-14 08:53] LABS: Hematocrit 24.2 % (35.5-45.6); Hemoglobin 7.9 gm/dl (11.8-15.2); Mean Corpuscular HGB Conc 33 % (32-34); Mean Corpuscular Hemoglobin 28 pg (28-32); Mean Corpuscular Volume 85 fl (84-94); Platelet Count 320 K/mm3 (140-440); Red Blood Count 2.84 M/mm3 (3.65-5.03); Red Cell Distribution Width 14.2 % (13.2-15.2)
[2018-04-14] MEDS: CATAPRES PO SCH ×3 (09:12→22:42)
[2018-04-14] MEDS: BABY ASPIRIN PO SCH (09:12)
[2018-04-14] MEDS: COREG PO SCH ×2 (09:13→22:42)
[2018-04-14] MEDS: LASIX PO SCH ×2 (09:13→22:42)
[2018-04-14] MEDS: PEPCID PO SCH ×2 (09:13→22:41)
[2018-04-14] MEDS: PROzac PO SCH (09:13)
[2018-04-14] MEDS: MINIPRESS PO SCH ×2 (09:14→22:42)
[2018-04-14] MEDS: LOVENOX SUB-Q SCH (09:14)
[2018-04-14] MEDS: SODIUM CHLORIDE FLUSH SYRINGE 10 ML IV SCH ×2 (09:15→22:41)
[2018-04-14 10:53] LABS: Band Neutrophils # (Manual) 0.1 K/mm3; Basophils % (Manual) 0 % (0.0-1.8); Total Cells Counted 100
[2018-04-14 10:55] LABS: Target Cells Few
[2018-04-14 10:56] LABS: Platelet Estimate Consistent w Auto
[2018-04-14] MEDS: NORMODYNE PO SCH ×2 (12:30→22:41)
--- NOTE | 2018-04-14 13:02 | Progress Note ---
Assessment and Plan Acute respiratory failure s/p mechanical ventilator. Bilateral pleural effusions Sepsis syndrome. Diabetic ketoacidosis. Severe metabolic acidosis. Acute on chronic encephalopathy, rule out cerebrovascular accident. Medication noncompliance. Anemia. Hyperkalemia. Acute kidney injury. - supplemental oxygen as needed to keep O2 Sats > 90% - s/p empiric antibiotics - continue diuresis and follow electrolytes / BUN & Cr - nephrology evaluation ongoing - continue glycemic control with 70/30 insulin (16 units BID) and SSI - continue VTE prophylaxis - continue Stress ulcer prophylaxis - Agitation and analgesia - Avoid delirium, avoid benzodiazepines - Avoid nephrotoxic agents and adjust all medications for CrCl/GFR - CXR prn - continue PT/OT as tolerated - continue other care per attending / other consultants ..... improved overall but stil borderline pulmonary status and at risk for volume overload ...25' Subjective Date of service: 04/14/18 Principal diagnosis: Acute hypoxic respiratory failure, DKA, BELKIS, Acute encephalopathy Interval history: Patient is seen today for: Acute hypoxic respiratory failure, DKA, BELKIS, Acute encephalopathy Seen and examined at bedside; 24hour events reviewed; nursing and respiratory care staff consulted; no adverse overnight events reported to me; resting peacefully in bed; feels and looks better; less SOB; No N/V/F/C; improving anasarca Objective Vital Signs - 12hr 04/14/18 04/14/18 04/14/18 04:34 06:22 07:13 Temperature 99.1 F 99.1 F Pulse Rate 80 73 77 Respiratory 20 20 Rate Blood Pressure 169/84 200/83 190/85 O2 Sat by Pulse 96 94 Oximetry 04/14/18 04/14/18 04/14/18 09:12 09:13 09:14 Temperature Pulse Rate 77 77 77 Respiratory Rate Blood Pressure 190/85 190/85 190/85 O2 Sat by Pulse Oximetry 04/14/18 12:30 Temperature Pulse Rate 68 Respiratory Rate Blood Pressure 170/80 O2 Sat by Pulse Oximetry Constitutional: no acute distress, alert, other (middle aged normocephalic and atraumatic AAM) Eyes: non-icteric ENT: oropharynx moist, other (mallampatti 2) Neck: supple, no lymphadenopathy, no JVD, other (no thyromegaly) Effort: normal Ascultation: Bilateral: diminished breath sounds, rhonchi (posterior base) Percussion: Bilateral: not dull Cardiovascular: regular rate and rhythm, other (No R/M) Gastrointestinal: normoactive bowel sounds, soft, non-tender, non-distended, other ( No HSM) Integumentary: normal Extremities: no cyanosis, pulses normal, no ischemia or petechiae, edema (2+ pedal edema) Neurologic: normal mental status, non-focal exam (grossly), pupils equal and round, CN II-XII normal, motor strength normal and Psychiatric: mood appropriate, affect normal CBC and BMP: 04/15/18 05:16 04/15/18 05:16 ABG, PT/INR, D-dimer: ABG POC ABG pH 7.405 (7.35-7.45) 03/28/18 03:49 POC ABG pCO2 38.6 (35-45) 03/28/18 03:49 POC ABG pO2 102 (80-105) 03/28/18 03:49 POC ABG HCO3 24.2 03/28/18 03:49 POC ABG Total CO2 25 03/28/18 03:49 POC ABG O2 Sat 98 03/28/18 03:49 Abnormal lab findings: Abnormal Labs 03/25/18 03/25/18 03/25/18 13:48 14:00 14:00 WBC 15.3 H RBC Hgb 10.5 L Hct MCV 95 H MCH 27 L MCHC 28 L RDW Plt Count Lymph % (Auto) 8.5 L [place] % (Auto) Lymph # [place] # Seg Neutrophils % 86.4 H Seg Neuts % (Manual) Lymphocytes % (Manual) Monocytes % (Manual) Eosinophils % (Manual) Seg Neutrophils # 13.2 H Lymphocytes # (Manual) Monocytes # (Manual) POC ABG pH POC ABG pCO2 POC ABG pO2 VBG pH Sodium 132 L Potassium 8.1 H* Chloride 87.8 L Carbon Dioxide 3 L* BUN 43 H Creatinine 2.6 H Glucose 1026 H* POC Glucose > 500 H Hemoglobin A1c Lactic Acid Calcium Phosphorus TIBC Transferrin Ferritin AST Total Creatine Kinase Troponin T NT-Pro-B Natriuret Pep Total Protein Albumin Triglycerides Cholesterol LDL Cholesterol Direct Urine Creatinine Urine Microalbumin Urine Chloride Urine Total Protein Miscellaneous Test Crossmatch 03/25/18 03/25/18 03/25/18 14:00 14:08 14:29 WBC RBC Hgb Hct MCV MCH MCHC RDW Plt Count Lymph % (Auto) [place] % (Auto) Lymph # [place] # Seg Neutrophils % Seg Neuts % (Manual) Lymphocytes % (Manual) Monocytes % (Manual) Eosinophils % (Manual) Seg Neutrophils # Lymphocytes # (Manual) Monocytes # (Manual) POC ABG pH 6.952 L POC ABG pCO2 25.8 L POC ABG pO2 559 H VBG pH Sodium Potassium Chloride Carbon Dioxide BUN Creatinine Glucose POC Glucose Hemoglobin A1c Lactic Acid 10.10 H* Calcium Phosphorus 8.70 H TIBC Transferrin Ferritin AST Total Creatine Kinase Troponin T NT-Pro-B Natriuret Pep Total Protein Albumin 2.6 L Triglycerides Cholesterol LDL Cholesterol Direct Urine Creatinine Urine Microalbumin Urine Chloride Urine Total Protein Miscellaneous Test Crossmatch 03/25/18 03/25/18 03/25/18 14:41 15:40 15:40 WBC RBC Hgb Hct MCV MCH MCHC RDW Plt Count Lymph % (Auto) [place] % (Auto) Lymph # [place] # Seg Neutrophils % Seg Neuts % (Manual) Lymphocytes % (Manual) Monocytes % (Manual) Eosinophils % (Manual) Seg Neutrophils # Lymphocytes # (Manual) Monocytes # (Manual) POC ABG pH POC ABG pCO2 POC ABG pO2 VBG pH 7.000 L* Sodium Potassium 6.7 H* Chloride 97.5 L Carbon Dioxide 5 L* BUN 43 H Creatinine 2.5 H Glucose 893 H* POC Glucose Hemoglobin A1c Lactic Acid Calcium 7.5 L Phosphorus 9.10 H TIBC Transferrin Ferritin AST Total Creatine Kinase Troponin T NT-Pro-B Natriuret Pep Total Protein Albumin Triglycerides Cholesterol LDL Cholesterol Direct Urine Creatinine Urine Microalbumin Urine Chloride Urine Total Protein Miscellaneous Test Crossmatch 03/25/18 03/25/18 03/25/18 18:09 18:12 18:55 WBC RBC Hgb Hct MCV MCH MCHC RDW Plt Count Lymph % (Auto) [place] % (Auto) Lymph # [place] # Seg Neutrophils % Seg Neuts % (Manual) Lymphocytes % (Manual) Monocytes % (Manual) Eosinophils % (Manual) Seg Neutrophils # Lymphocytes # (Manual) Monocytes # (Manual) POC ABG pH POC ABG pCO2 POC ABG pO2 VBG pH Sodium 133 L Potassium 5.7 H Chloride 93.1 L Carbon Dioxide 10 L BUN 43 H Creatinine 2.5 H Glucose 786 H* POC Glucose Hemoglobin A1c 8.9 H Lactic Acid Calcium 7.8 L Phosphorus TIBC Transferrin Ferritin AST Total Creatine Kinase 226 H Troponin T 0.033 H NT-Pro-B Natriuret Pep Total Protein Albumin Triglycerides 185 H Cholesterol 215 H LDL Cholesterol Direct 144 H Urine Creatinine Urine Microalbumin Urine Chloride Urine Total Protein Miscellaneous Test Crossmatch 03/25/18 03/25/18 03/25/18 18:55 21:00 21:03 WBC RBC Hgb Hct MCV MCH MCHC RDW Plt Count Lymph % (Auto) [place] % (Auto) Lymph # [place] # Seg Neutrophils % Seg Neuts % (Manual) Lymphocytes % (Manual) Monocytes % (Manual) Eosinophils % (Manual) Seg Neutrophils # Lymphocytes # (Manual) Monocytes # (Manual) POC ABG pH POC ABG pCO2 POC ABG pO2 VBG pH Sodium 136 L Potassium 6.7 H* Chloride Carbon Dioxide 7 L* BUN 45 H Creatinine 2.6 H Glucose 879 H* POC Glucose > 500 H Hemoglobin A1c Lactic Acid Calcium 7.8 L Phosphorus 9.20 H TIBC Transferrin Ferritin AST Total Creatine Kinase Troponin T NT-Pro-B Natriuret Pep Total Protein Albumin Triglycerides Cholesterol LDL Cholesterol Direct Urine Creatinine Urine Microalbumin Urine Chloride Urine Total Protein Miscellaneous Test Crossmatch 03/25/18 03/25/18 03/25/18 21:39 22:06 23:20 WBC RBC Hgb Hct MCV MCH MCHC RDW Plt Count Lymph % (Auto) [place] % (Auto) Lymph # [place] # Seg Neutrophils % Seg Neuts % (Manual) Lymphocytes % (Manual) Monocytes % (Manual) Eosinophils % (Manual) Seg Neutrophils # Lymphocytes # (Manual) Monocytes # (Manual) POC ABG pH 7.272 L POC ABG pCO2 14.2 L POC ABG pO2 263 H VBG pH Sodium Potassium Chloride Carbon Dioxide 7 L* BUN 47 H Creatinine 2.9 H Glucose 702 H* POC Glucose > 500 H Hemoglobin A1c Lactic Acid Calcium 7.6 L Phosphorus TIBC Transferrin Ferritin AST Total Creatine Kinase Troponin T NT-Pro-B Natriuret Pep Total Protein Albumin Triglycerides Cholesterol LDL Cholesterol Direct Urine Creatinine Urine Microalbumin Urine Chloride Urine Total Protein Miscellaneous Test Crossmatch 03/25/18 03/26/18 03/26/18 23:20 00:17 01:08 WBC RBC Hgb Hct MCV MCH MCHC RDW Plt Count Lymph % (Auto) [place] % (Auto) Lymph # [place] # Seg Neutrophils % Seg Neuts % (Manual) Lymphocytes % (Manual) Monocytes % (Manual) Eosinophils % (Manual) Seg Neutrophils # Lymphocytes # (Manual) Monocytes # (Manual) POC ABG pH POC ABG pCO2 POC ABG pO2 VBG pH Sodium Potassium Chloride Carbon Dioxide BUN Creatinine Glucose POC Glucose > 500 H 447 H 484 H Hemoglobin A1c Lactic Acid Calcium Phosphorus TIBC Transferrin Ferritin AST Total Creatine Kinase Troponin T NT-Pro-B Natriuret Pep Total Protein Albumin Triglycerides Cholesterol LDL Cholesterol Direct Urine Creatinine Urine Microalbumin Urine Chloride Urine Total Protein Miscellaneous Test Crossmatch 03/26/18 03/26/18 03/26/18 02:31 03:07 04:09 WBC RBC Hgb Hct MCV MCH MCHC RDW Plt Count Lymph % (Auto) [place] % (Auto) Lymph # [place] # Seg Neutrophils % Seg Neuts % (Manual) Lymphocytes % (Manual) Monocytes % (Manual) Eosinophils % (Manual) Seg Neutrophils # Lymphocytes # (Manual) Monocytes # (Manual) POC ABG pH POC ABG pCO2 POC ABG pO2 VBG pH Sodium Potassium Chloride Carbon Dioxide BUN Creatinine Glucose POC Glucose > 500 H 467 H 361 H Hemoglobin A1c Lactic Acid Calcium Phosphorus TIBC Transferrin Ferritin AST Total Creatine Kinase Troponin T NT-Pro-B Natriuret Pep Total Protein Albumin Triglycerides Cholesterol LDL Cholesterol Direct Urine Creatinine Urine Microalbumin Urine Chloride Urine Total Protein Miscellaneous Test Crossmatch 03/26/18 03/26/18 03/26/18 04:25 05:24 06:19 WBC RBC Hgb Hct MCV MCH MCHC RDW Plt Count Lymph % (Auto) [place] % (Auto) Lymph # [place] # Seg Neutrophils % Seg Neuts % (Manual) Lymphocytes % (Manual) Monocytes % (Manual) Eosinophils % (Manual) Seg Neutrophils # Lymphocytes # (Manual) Monocytes # (Manual) POC ABG pH POC ABG pCO2 POC ABG pO2 VBG pH Sodium 150 H D Potassium 3.4 L D Chloride 118.3 H Carbon Dioxide 16 L D BUN 45 H Creatinine 2.7 H Glucose 278 H POC Glucose 306 H 188 H Hemoglobin A1c Lactic Acid Calcium 7.7 L Phosphorus TIBC Transferrin Ferritin AST Total Creatine Kinase Troponin T NT-Pro-B Natriuret Pep Total Protein Albumin Triglycerides Cholesterol LDL Cholesterol Direct Urine Creatinine Urine Microalbumin Urine Chloride Urine Total Protein Miscellaneous Test Crossmatch 03/26/18 03/26/18 03/26/18 07:09 08:20 09:12 WBC RBC Hgb Hct MCV MCH MCHC RDW Plt Count Lymph % (Auto) [place] % (Auto) Lymph # [place] # Seg Neutrophils % Seg Neuts % (Manual) Lymphocytes % (Manual) Monocytes % (Manual) Eosinophils % (Manual) Seg Neutrophils # Lymphocytes # (Manual) Monocytes # (Manual) POC ABG pH 7.530 H POC ABG pCO2 22.0 L POC ABG pO2 147 H VBG pH Sodium Potassium Chloride Carbon Dioxide BUN Creatinine Glucose POC Glucose 148 H 170 H Hemoglobin A1c Lactic Acid Calcium Phosphorus TIBC Transferrin Ferritin AST Total Creatine Kinase Troponin T NT-Pro-B Natriuret Pep Total Protein Albumin Triglycerides Cholesterol LDL Cholesterol Direct Urine Creatinine Urine Microalbumin Urine Chloride Urine Total Protein Miscellaneous Test Crossmatch 03/26/18 03/26/18 03/26/18 09:15 10:30 10:46 WBC RBC Hgb Hct MCV MCH MCHC RDW Plt Count Lymph % (Auto) [place] % (Auto) Lymph # [place] # Seg Neutrophils % Seg Neuts % (Manual) Lymphocytes % (Manual) Monocytes % (Manual) Eosinophils % (Manual) Seg Neutrophils # Lymphocytes # (Manual) Monocytes # (Manual) POC ABG pH POC ABG pCO2 POC ABG pO2 VBG pH Sodium 152 H Potassium 3.1 L Chloride 121.4 H Carbon Dioxide BUN 43 H Creatinine 2.6 H Glucose 105 H POC Glucose 177 H 125 H Hemoglobin A1c Lactic Acid Calcium 7.5 L Phosphorus TIBC Transferrin Ferritin AST Total Creatine Kinase Troponin T NT-Pro-B Natriuret Pep Total Protein Albumin Triglycerides Cholesterol LDL Cholesterol Direct Urine Creatinine Urine Microalbumin Urine Chloride Urine Total Protein Miscellaneous Test Crossmatch 03/26/18 03/26/18 03/26/18 14:57 15:35 18:12 WBC RBC Hgb Hct MCV MCH MCHC RDW Plt Count Lymph % (Auto) [place] % (Auto) Lymph # [place] # Seg Neutrophils % Seg Neuts % (Manual) Lymphocytes % (Manual) Monocytes % (Manual) Eosinophils % (Manual) Seg Neutrophils # Lymphocytes # (Manual) Monocytes # (Manual) POC ABG pH POC ABG pCO2 POC ABG pO2 VBG pH Sodium 148 H Potassium Chloride 117.5 H Carbon Dioxide 18 L BUN 43 H Creatinine 2.5 H Glucose 135 H POC Glucose 159 H 245 H Hemoglobin A1c Lactic Acid Calcium 7.3 L Phosphorus TIBC Transferrin Ferritin AST Total Creatine Kinase Troponin T NT-Pro-B Natriuret Pep Total Protein Albumin Triglycerides Cholesterol LDL Cholesterol Direct Urine Creatinine Urine Microalbumin Urine Chloride Urine Total Protein Miscellaneous Test Crossmatch 03/26/18 03/26/18 03/27/18 19:27 21:42 02:03 WBC RBC Hgb Hct MCV MCH MCHC RDW Plt Count Lymph % (Auto) [place] % (Auto) Lymph # [place] # Seg Neutrophils % Seg Neuts % (Manual) Lymphocytes % (Manual) Monocytes % (Manual) Eosinophils % (Manual) Seg Neutrophils # Lymphocytes # (Manual) Monocytes # (Manual) POC ABG pH POC ABG pCO2 POC ABG pO2 VBG pH Sodium Potassium Chloride 115.0 H Carbon Dioxide 20 L BUN 42 H Creatinine 2.4 H Glucose 221 H POC Glucose 261 H 254 H Hemoglobin A1c Lactic Acid Calcium 7.1 L Phosphorus TIBC Transferrin Ferritin AST Total Creatine Kinase Troponin T NT-Pro-B Natriuret Pep Total Protein Albumin Triglycerides Cholesterol LDL Cholesterol Direct Urine Creatinine Urine Microalbumin Urine Chloride Urine Total Protein Miscellaneous Test Crossmatch 03/27/18 03/27/18 03/27/18 03:35 03:35 05:20 WBC 12.3 H RBC 3.05 L Hgb 8.3 L Hct 25.3 L D MCV 83 L MCH 27 L MCHC RDW Plt Count Lymph % (Auto) [place] % (Auto) 8.6 H Lymph # [place] # 1.1 H Seg Neutrophils % 76.5 H Seg Neuts % (Manual) Lymphocytes % (Manual) Monocytes % (Manual) Eosinophils % (Manual) Seg Neutrophils # 9.4 H Lymphocytes # (Manual) Monocytes # (Manual) POC ABG pH POC ABG pCO2 POC ABG pO2 VBG pH Sodium Potassium Chloride 112.6 H Carbon Dioxide BUN 36 H Creatinine 2.1 H Glucose 244 H POC Glucose 263 H Hemoglobin A1c Lactic Acid Calcium 7.1 L Phosphorus TIBC Transferrin Ferritin AST 44 H Total Creatine Kinase Troponin T NT-Pro-B Natriuret Pep Total Protein 5.1 L D Albumin 2.1 L Triglycerides Cholesterol LDL Cholesterol Direct Urine Creatinine Urine Microalbumin Urine Chloride Urine Total Protein Miscellaneous Test Crossmatch 03/27/18 03/27/18 03/27/18 08:22 13:00 14:06 WBC RBC Hgb Hct MCV MCH MCHC RDW Plt Count Lymph % (Auto) [place] % (Auto) Lymph # [place] # Seg Neutrophils % Seg Neuts % (Manual) Lymphocytes % (Manual) Monocytes % (Manual) Eosinophils % (Manual) Seg Neutrophils # Lymphocytes # (Manual) Monocytes # (Manual) POC ABG pH POC ABG pCO2 34.7 L POC ABG pO2 VBG pH Sodium Potassium Chloride Carbon Dioxide BUN Creatinine Glucose POC Glucose 306 H 233 H Hemoglobin A1c Lactic Acid Calcium Phosphorus TIBC Transferrin Ferritin AST Total Creatine Kinase Troponin T NT-Pro-B Natriuret Pep Total Protein Albumin Triglycerides Cholesterol LDL Cholesterol Direct Urine Creatinine Urine Microalbumin Urine Chloride Urine Total Protein Miscellaneous Test Crossmatch 03/27/18 03/27/18 03/27/18 16:15 18:11 21:44 WBC RBC Hgb Hct MCV MCH MCHC RDW Plt Count Lymph % (Auto) [place] % (Auto) Lymph # [place] # Seg Neutrophils % Seg Neuts % (Manual) Lymphocytes % (Manual) Monocytes % (Manual) Eosinophils % (Manual) Seg Neutrophils # Lymphocytes # (Manual) Monocytes # (Manual) POC ABG pH POC ABG pCO2 POC ABG pO2 VBG pH Sodium Potassium Chloride Carbon Dioxide BUN Creatinine Glucose POC Glucose 243 H 226 H 224 H Hemoglobin A1c Lactic Acid Calcium Phosphorus TIBC Transferrin Ferritin AST Total Creatine Kinase Troponin T NT-Pro-B Natriuret Pep Total Protein Albumin Triglycerides Cholesterol LDL Cholesterol Direct Urine Creatinine Urine Microalbumin Urine Chloride Urine Total Protein Miscellaneous Test Crossmatch 03/28/18 03/28/18 03/28/18 02:07 04:35 04:35 WBC RBC Hgb Hct MCV MCH MCHC RDW Plt Count Lymph % (Auto) [place] % (Auto) Lymph # [place] # Seg Neutrophils % Seg Neuts % (Manual) Lymphocytes % (Manual) Monocytes % (Manual) Eosinophils % (Manual) Seg Neutrophils # Lymphocytes # (Manual) Monocytes # (Manual) POC ABG pH POC ABG pCO2 POC ABG pO2 VBG pH Sodium Potassium Chloride Carbon Dioxide BUN Creatinine Glucose POC Glucose 220 H Hemoglobin A1c Lactic Acid Calcium Phosphorus TIBC 115 L Transferrin 94 L Ferritin 412.1 H AST Total Creatine Kinase Troponin T NT-Pro-B Natriuret Pep Total Protein Albumin Triglycerides Cholesterol LDL Cholesterol Direct Urine Creatinine Urine Microalbumin Urine Chloride Urine Total Protein Miscellaneous Test Crossmatch 03/28/18 03/28/1803/28/18 05:27 09:52 10:59 WBC RBC 3.22 L Hgb 9.1 L Hct 26.8 L MCV 83 L MCH MCHC RDW Plt Count 134 L Lymph % (Auto) [place] % (Auto) Lymph # [place] # Seg Neutrophils % Seg Neuts % (Manual) Lymphocytes % (Manual) Monocytes % (Manual) Eosinophils % (Manual) Seg Neutrophils # Lymphocytes # (Manual) Monocytes # (Manual) POC ABG pH POC ABG pCO2 POC ABG pO2 VBG pH Sodium Potassium Chloride Carbon Dioxide BUN Creatinine Glucose POC Glucose 280 H 332 H Hemoglobin A1c Lactic Acid Calcium Phosphorus TIBC Transferrin Ferritin AST Total Creatine Kinase Troponin T NT-Pro-B Natriuret Pep Total Protein Albumin Triglycerides Cholesterol LDL Cholesterol Direct Urine Creatinine Urine Microalbumin Urine Chloride Urine Total Protein Miscellaneous Test Crossmatch 03/28/18 03/28/18 03/28/18 10:59 14:39 17:47 WBC RBC Hgb Hct MCV MCH MCHC RDW Plt Count Lymph % (Auto) [place] % (Auto) Lymph # [place] # Seg Neutrophils % Seg Neuts % (Manual) Lymphocytes % (Manual) Monocytes % (Manual) Eosinophils % (Manual) Seg Neutrophils # Lymphocytes # (Manual) Monocytes # (Manual) POC ABG pH POC ABG pCO2 POC ABG pO2 VBG pH Sodium 136 L Potassium Chloride Carbon Dioxide BUN 29 H Creatinine Glucose 310 H POC Glucose 250 H 132 H Hemoglobin A1c Lactic Acid Calcium 7.0 L Phosphorus TIBC Transferrin Ferritin AST Total Creatine Kinase Troponin T NT-Pro-B Natriuret Pep Total Protein Albumin Triglycerides Cholesterol LDL Cholesterol Direct Urine Creatinine Urine Microalbumin Urine Chloride Urine Total Protein Miscellaneous Test Crossmatch 03/29/18 03/29/18 03/29/18 01:49 04:23 05:45 WBC RBC 3.13 L Hgb 8.8 L Hct 25.8 L MCV 82 L MCH MCHC RDW 12.7 L Plt Count 132 L Lymph % (Auto) 10.8 L [place] % (Auto) 9.1 H Lymph # 1.0 L [place] # Seg Neutrophils % 79.1 H Seg Neuts % (Manual) Lymphocytes % (Manual) Monocytes % (Manual) Eosinophils % (Manual) Seg Neutrophils # Lymphocytes # (Manual) Monocytes # (Manual) POC ABG pH POC ABG pCO2 POC ABG pO2 VBG pH Sodium 134 L Potassium Chloride Carbon Dioxide BUN 27 H Creatinine Glucose 172 H POC Glucose 122 H Hemoglobin A1c Lactic Acid Calcium 7.1 L Phosphorus TIBC Transferrin Ferritin AST Total Creatine Kinase Troponin T NT-Pro-B Natriuret Pep Total Protein Albumin Triglycerides Cholesterol LDL Cholesterol Direct Urine Creatinine Urine Microalbumin Urine Chloride Urine Total Protein Miscellaneous Test Crossmatch 03/29/18 03/29/18 03/29/18 05:57 09:19 13:09 WBC RBC Hgb Hct MCV MCH MCHC RDW Plt Count Lymph % (Auto) [place] % (Auto) Lymph # [place] # Seg Neutrophils % Seg Neuts % (Manual) Lymphocytes % (Manual) Monocytes % (Manual) Eosinophils % (Manual) Seg Neutrophils # Lymphocytes # (Manual) Monocytes # (Manual) POC ABG pH POC ABG pCO2 POC ABG pO2 VBG pH Sodium Potassium Chloride Carbon Dioxide BUN Creatinine Glucose POC Glucose 224 H 316 H 345 H Hemoglobin A1c Lactic Acid Calcium Phosphorus TIBC Transferrin Ferritin AST Total Creatine Kinase Troponin T NT-Pro-B Natriuret Pep Total Protein Albumin Triglycerides Cholesterol LDL Cholesterol Direct Urine Creatinine Urine Microalbumin Urine Chloride Urine Total Protein Miscellaneous Test Crossmatch 03/29/18 03/29/18 03/29/18 16:27 22:26 22:36 WBC RBC Hgb Hct MCV MCH MCHC RDW Plt Count Lymph % (Auto) [place] % (Auto) Lymph # [place] # Seg Neutrophils % Seg Neuts % (Manual) Lymphocytes % (Manual) Monocytes % (Manual) Eosinophils % (Manual) Seg Neutrophils # Lymphocytes # (Manual) Monocytes # (Manual) POC ABG pH POC ABG pCO2 POC ABG pO2 VBG pH Sodium Potassium Chloride Carbon Dioxide BUN Creatinine Glucose POC Glucose 210 H < 40 L 172 H Hemoglobin A1c Lactic Acid Calcium Phosphorus TIBC Transferrin Ferritin AST Total Creatine Kinase Troponin T NT-Pro-B Natriuret Pep Total Protein Albumin Triglycerides Cholesterol LDL Cholesterol Direct Urine Creatinine Urine Microalbumin Urine Chloride Urine Total Protein Miscellaneous Test Crossmatch 03/30/18 03/30/18 03/30/18 00:07 05:12 06:39 WBC RBC 2.95 L Hgb 8.3 L Hct 24.6 L MCV 83 L MCH MCHC RDW 12.9 L Plt Count Lymph % (Auto) [place] % (Auto) 13.5 H Lymph # [place] # 0.9 H Seg Neutrophils % Seg Neuts % (Manual) Lymphocytes % (Manual) Monocytes % (Manual) Eosinophils % (Manual) Seg Neutrophils # Lymphocytes # (Manual) Monocytes # (Manual) POC ABG pH POC ABG pCO2 POC ABG pO2 VBG pH Sodium Potassium Chloride Carbon Dioxide BUN Creatinine Glucose POC Glucose 69 L 213 H Hemoglobin A1c Lactic Acid Calcium Phosphorus TIBC Transferrin Ferritin AST Total Creatine Kinase Troponin T NT-Pro-B Natriuret Pep Total Protein Albumin Triglycerides Cholesterol LDL Cholesterol Direct Urine Creatinine Urine Microalbumin Urine Chloride Urine Total Protein Miscellaneous Test Crossmatch 03/30/18 03/30/18 03/30/18 06:39 10:06 13:59 WBC RBC Hgb Hct MCV MCH MCHC RDW Plt Count Lymph % (Auto) [place] % (Auto) Lymph # [place] # Seg Neutrophils % Seg Neuts % (Manual) Lymphocytes % (Manual) Monocytes % (Manual) Eosinophils % (Manual) Seg Neutrophils # Lymphocytes # (Manual) Monocytes # (Manual) POC ABG pH POC ABG pCO2 POC ABG pO2 VBG pH Sodium 133 L Potassium 3.5 L D Chloride 95.6 L Carbon Dioxide BUN 34 H Creatinine Glucose 241 H POC Glucose 368 H 237 H Hemoglobin A1c Lactic Acid Calcium 7.3 L Phosphorus TIBC Transferrin Ferritin AST Total Creatine Kinase Troponin T NT-Pro-B Natriuret Pep Total Protein Albumin Triglycerides Cholesterol LDL Cholesterol Direct Urine Creatinine Urine Microalbumin Urine Chloride Urine Total Protein Miscellaneous Test Crossmatch 03/30/18 03/30/18 03/30/18 16:39 20:47 21:30 WBC RBC Hgb Hct MCV MCH MCHC RDW Plt Count Lymph % (Auto) [place] % (Auto) Lymph # [place] # Seg Neutrophils % Seg Neuts % (Manual) Lymphocytes % (Manual) Monocytes % (Manual) Eosinophils % (Manual) Seg Neutrophils # Lymphocytes # (Manual) Monocytes # (Manual) POC ABG pH POC ABG pCO2 POC ABG pO2 VBG pH Sodium Potassium Chloride Carbon Dioxide BUN Creatinine Glucose POC Glucose 176 H 60 L 113 H Hemoglobin A1c Lactic Acid Calcium Phosphorus TIBC Transferrin Ferritin AST Total Creatine Kinase Troponin T NT-Pro-B Natriuret Pep Total Protein Albumin Triglycerides Cholesterol LDL Cholesterol Direct Urine Creatinine Urine Microalbumin Urine Chloride Urine Total Protein Miscellaneous Test Crossmatch 03/31/18 03/31/18 03/31/18 02:07 06:45 07:24 WBC RBC 3.06 L Hgb 8.6 L Hct 25.3 L MCV 83 L MCH MCHC RDW 12.7 L Plt Count Lymph % (Auto) [place] % (Auto) Lymph # [place] # Seg Neutrophils % Seg Neuts % (Manual) 73.0 H Lymphocytes % (Manual) 6.0 L Monocytes % (Manual) 21.0 H Eosinophils % (Manual) Seg Neutrophils # Lymphocytes # (Manual) 0.4 L Monocytes # (Manual) 1.4 H POC ABG pH POC ABG pCO2 POC ABG pO2 VBG pH Sodium Potassium Chloride Carbon Dioxide BUN Creatinine Glucose POC Glucose 140 H 260 H Hemoglobin A1c Lactic Acid Calcium Phosphorus TIBC Transferrin Ferritin AST Total Creatine Kinase Troponin T NT-Pro-B Natriuret Pep Total Protein Albumin Triglycerides Cholesterol LDL Cholesterol Direct Urine Creatinine Urine Microalbumin Urine Chloride Urine Total Protein Miscellaneous Test Crossmatch 03/31/18 03/31/18 03/31/18 07:24 11:51 13:08 WBC RBC Hgb Hct MCV MCH MCHC RDW Plt Count Lymph % (Auto) [place] % (Auto) Lymph # [place] # Seg Neutrophils % Seg Neuts % (Manual) Lymphocytes % (Manual) Monocytes % (Manual) Eosinophils % (Manual) Seg Neutrophils # Lymphocytes # (Manual) Monocytes # (Manual) POC ABG pH POC ABG pCO2 POC ABG pO2 VBG pH Sodium 134 L Potassium Chloride Carbon Dioxide BUN 36 H Creatinine 1.8 H Glucose 271 H POC Glucose > 500 H > 500 H Hemoglobin A1c Lactic Acid Calcium 7.3 L Phosphorus TIBC Transferrin Ferritin AST Total Creatine Kinase Troponin T NT-Pro-B Natriuret Pep Total Protein Albumin Triglycerides Cholesterol LDL Cholesterol Direct Urine Creatinine Urine Microalbumin Urine Chloride Urine Total Protein Miscellaneous Test Crossmatch 03/31/18 03/31/18 03/31/18 14:00 16:15 16:29 WBC RBC Hgb Hct MCV MCH MCHC RDW Plt Count Lymph % (Auto) [place] % (Auto) Lymph # [place] # Seg Neutrophils % Seg Neuts % (Manual) Lymphocytes % (Manual) Monocytes % (Manual) Eosinophils % (Manual) Seg Neutrophils # Lymphocytes # (Manual) Monocytes # (Manual) POC ABG pH POC ABG pCO2 POC ABG pO2 VBG pH Sodium Potassium Chloride Carbon Dioxide BUN Creatinine Glucose POC Glucose > 500 H 405 H 424 H Hemoglobin A1c Lactic Acid Calcium Phosphorus TIBC Transferrin Ferritin AST Total Creatine Kinase Troponin T NT-Pro-B Natriuret Pep Total Protein Albumin Triglycerides Cholesterol LDL Cholesterol Direct Urine Creatinine Urine Microalbumin Urine Chloride Urine Total Protein Miscellaneous Test Crossmatch 03/31/18 04/01/18 04/01/18 21:14 00:21 05:51 WBC RBC 2.55 L Hgb 7.1 L Hct 21.2 L MCV 83 L MCH MCHC RDW 12.5 L Plt Count Lymph % (Auto) [place] % (Auto) Lymph # [place] # Seg Neutrophils % Seg Neuts % (Manual) Lymphocytes % (Manual) Monocytes % (Manual) 22.0 H Eosinophils % (Manual) Seg Neutrophils # Lymphocytes # (Manual) Monocytes # (Manual) 1.1 H POC ABG pH POC ABG pCO2 POC ABG pO2 VBG pH Sodium Potassium Chloride Carbon Dioxide BUN Creatinine Glucose POC Glucose 393 H 384 H Hemoglobin A1c Lactic Acid Calcium Phosphorus TIBC Transferrin Ferritin AST Total Creatine Kinase Troponin T NT-Pro-B Natriuret Pep Total Protein Albumin Triglycerides Cholesterol LDL Cholesterol Direct Urine Creatinine Urine Microalbumin Urine Chloride Urine Total Protein Miscellaneous Test Crossmatch 04/01/18 04/01/18 04/01/18 05:51 06:52 11:13 WBC RBC Hgb Hct MCV MCH MCHC RDW Plt Count Lymph % (Auto) [place] % (Auto) Lymph # [place] # Seg Neutrophils % Seg Neuts % (Manual) Lymphocytes % (Manual) Monocytes % (Manual) Eosinophils % (Manual) Seg Neutrophils # Lymphocytes # (Manual) Monocytes # (Manual) POC ABG pH POC ABG pCO2 POC ABG pO2 VBG pH Sodium Potassium Chloride Carbon Dioxide BUN 35 H Creatinine Glucose 120 H POC Glucose 114 H Hemoglobin A1c Lactic Acid Calcium 7.3 L Phosphorus TIBC Transferrin Ferritin AST Total Creatine Kinase Troponin T NT-Pro-B Natriuret Pep Total Protein Albumin Triglycerides Cholesterol LDL Cholesterol Direct Urine Creatinine Urine Microalbumin Urine Chloride Urine Total Protein Miscellaneous Test Crossmatch See Detail 04/01/18 04/01/18 04/01/18 11:16 12:06 16:04 WBC RBC Hgb 7.3 L Hct 21.5 L MCV MCH MCHC RDW Plt Count Lymph % (Auto) [place] % (Auto) Lymph # [place] # Seg Neutrophils % Seg Neuts % (Manual) Lymphocytes % (Manual) Monocytes % (Manual) Eosinophils % (Manual) Seg Neutrophils # Lymphocytes # (Manual) Monocytes # (Manual) POC ABG pH POC ABG pCO2 POC ABG pO2 VBG pH Sodium Potassium Chloride Carbon Dioxide BUN Creatinine Glucose POC Glucose 223 H 225 H Hemoglobin A1c Lactic Acid Calcium Phosphorus TIBC Transferrin Ferritin AST Total Creatine Kinase Troponin T NT-Pro-B Natriuret Pep Total Protein Albumin Triglycerides Cholesterol LDL Cholesterol Direct Urine Creatinine Urine Microalbumin Urine Chloride Urine Total Protein Miscellaneous Test Crossmatch 04/01/18 04/01/18 04/01/18 16:46 19:47 21:15 WBC RBC Hgb 7.7 L Hct 23.5 L MCV MCH MCHC RDW Plt Count Lymph % (Auto) [place] % (Auto) Lymph # [place] # Seg Neutrophils % Seg Neuts % (Manual) Lymphocytes % (Manual) Monocytes % (Manual) Eosinophils % (Manual) Seg Neutrophils # Lymphocytes # (Manual) Monocytes # (Manual) POC ABG pH POC ABG pCO2 POC ABG pO2 VBG pH Sodium Potassium Chloride Carbon Dioxide BUN Creatinine Glucose POC Glucose 219 H 380 H Hemoglobin A1c Lactic Acid Calcium Phosphorus TIBC Transferrin Ferritin AST Total Creatine Kinase Troponin T NT-Pro-B Natriuret Pep Total Protein Albumin Triglycerides Cholesterol LDL Cholesterol Direct Urine Creatinine Urine Microalbumin Urine Chloride Urine Total Protein Miscellaneous Test Crossmatch 04/02/18 04/02/18 04/02/18 05:47 06:57 07:52 WBC RBC 2.80 L Hgb 7.7 L Hct 23.5 L MCV MCH MCHC RDW Plt Count Lymph % (Auto) [place] % (Auto) Lymph # [place] # Seg Neutrophils % Seg Neuts % (Manual) Lymphocytes % (Manual) Monocytes % (Manual) 25.0 H Eosinophils % (Manual) Seg Neutrophils # Lymphocytes # (Manual) 1.1 L Monocytes # (Manual) 1.3 H POC ABG pH POC ABG pCO2 POC ABG pO2 VBG pH Sodium Potassium Chloride Carbon Dioxide BUN Creatinine Glucose POC Glucose 49 L 111 H Hemoglobin A1c Lactic Acid Calcium Phosphorus TIBC Transferrin Ferritin AST Total Creatine Kinase Troponin T NT-Pro-B Natriuret Pep Total Protein Albumin Triglycerides Cholesterol LDL Cholesterol Direct Urine Creatinine Urine Microalbumin Urine Chloride Urine Total Protein Miscellaneous Test Crossmatch 04/02/18 04/02/18 04/02/18 07:52 12:36 16:36 WBC RBC Hgb Hct MCV MCH MCHC RDW Plt Count Lymph % (Auto) [place] % (Auto) Lymph # [place] # Seg Neutrophils % Seg Neuts % (Manual) Lymphocytes % (Manual) Monocytes % (Manual) Eosinophils % (Manual) Seg Neutrophils # Lymphocytes # (Manual) Monocytes # (Manual) POC ABG pH POC ABG pCO2 POC ABG pO2 VBG pH Sodium Potassium Chloride Carbon Dioxide BUN 28 H Creatinine Glucose 115 H POC Glucose 259 H 297 H Hemoglobin A1c Lactic Acid Calcium 7.3 L Phosphorus TIBC Transferrin Ferritin AST Total Creatine Kinase Troponin T NT-Pro-B Natriuret Pep Total Protein Albumin Triglycerides Cholesterol LDL Cholesterol Direct Urine Creatinine Urine Microalbumin Urine Chloride Urine Total Protein Miscellaneous Test Crossmatch 04/02/18 04/03/18 04/03/18 22:01 04:20 04:46 WBC RBC Hgb Hct MCV MCH MCHC RDW Plt Count Lymph % (Auto) [place] % (Auto) Lymph # [place] # Seg Neutrophils % Seg Neuts % (Manual) Lymphocytes % (Manual) Monocytes % (Manual) Eosinophils % (Manual) Seg Neutrophils # Lymphocytes # (Manual) Monocytes # (Manual) POC ABG pH POC ABG pCO2 POC ABG pO2 VBG pH Sodium Potassium Chloride Carbon Dioxide BUN Creatinine Glucose POC Glucose 206 H < 40 L 64 L Hemoglobin A1c Lactic Acid Calcium Phosphorus TIBC Transferrin Ferritin AST Total Creatine Kinase Troponin T NT-Pro-B Natriuret Pep Total Protein Albumin Triglycerides Cholesterol LDL Cholesterol Direct Urine Creatinine Urine Microalbumin Urine Chloride Urine Total Protein Miscellaneous Test Crossmatch 04/03/18 04/03/18 04/03/18 05:46 05:46 05:57 WBC RBC 2.72 L Hgb 7.6 L Hct 22.4 L MCV 83 L MCH MCHC RDW Plt Count Lymph % (Auto) [place] % (Auto) Lymph # [place] # Seg Neutrophils % Seg Neuts % (Manual) Lymphocytes % (Manual) 13.0 L Monocytes % (Manual) 19.0 H Eosinophils % (Manual) Seg Neutrophils # Lymphocytes # (Manual) 0.9 L Monocytes # (Manual) 1.3 H POC ABG pH POC ABG pCO2 POC ABG pO2 VBG pH Sodium Potassium Chloride 110.7 H Carbon Dioxide BUN 24 H Creatinine Glucose 45 L POC Glucose < 40 L Hemoglobin A1c Lactic Acid Calcium 7.3 L Phosphorus TIBC Transferrin Ferritin AST Total Creatine Kinase Troponin T NT-Pro-B Natriuret Pep Total Protein Albumin Triglycerides Cholesterol LDL Cholesterol Direct Urine Creatinine Urine Microalbumin Urine Chloride Urine Total Protein Miscellaneous Test Crossmatch 04/03/18 04/03/18 04/03/18 07:04 09:17 11:34 WBC RBC Hgb Hct MCV MCH MCHC RDW Plt Count Lymph % (Auto) [place] % (Auto) Lymph # [place] # Seg Neutrophils % Seg Neuts % (Manual) Lymphocytes % (Manual) Monocytes % (Manual) Eosinophils % (Manual) Seg Neutrophils # Lymphocytes # (Manual) Monocytes # (Manual) POC ABG pH POC ABG pCO2 POC ABG pO2 VBG pH Sodium Potassium Chloride Carbon Dioxide BUN Creatinine Glucose POC Glucose 44 L 107 H 196 H Hemoglobin A1c Lactic Acid Calcium Phosphorus TIBC Transferrin Ferritin AST Total Creatine Kinase Troponin T NT-Pro-B Natriuret Pep Total Protein Albumin Triglycerides Cholesterol LDL Cholesterol Direct Urine Creatinine Urine Microalbumin Urine Chloride Urine Total Protein Miscellaneous Test Crossmatch 04/03/18 04/03/18 04/04/18 16:48 20:25 06:05 WBC RBC 2.49 L Hgb 6.9 L Hct 20.8 L MCV 83 L MCH MCHC RDW Plt Count Lymph % (Auto) [place] % (Auto) Lymph # [place] # Seg Neutrophils % Seg Neuts % (Manual) Lymphocytes % (Manual) Monocytes % (Manual) 23.0 H Eosinophils % (Manual) Seg Neutrophils # Lymphocytes # (Manual) 0.7 L Monocytes # (Manual) 1.2 H POC ABG pH POC ABG pCO2 POC ABG pO2 VBG pH Sodium Potassium Chloride Carbon Dioxide BUN Creatinine Glucose POC Glucose 251 H 211 H Hemoglobin A1c Lactic Acid Calcium Phosphorus TIBC Transferrin Ferritin AST Total Creatine Kinase Troponin T NT-Pro-B Natriuret Pep Total Protein Albumin Triglycerides Cholesterol LDL Cholesterol Direct Urine Creatinine Urine Microalbumin Urine Chloride Urine Total Protein Miscellaneous Test Crossmatch 04/04/18 04/04/18 04/04/18 06:05 06:06 20:14 WBC RBC Hgb Hct MCV MCH MCHC RDW Plt Count Lymph % (Auto) [place] % (Auto) Lymph # [place] # Seg Neutrophils % Seg Neuts % (Manual) Lymphocytes % (Manual) Monocytes % (Manual) Eosinophils % (Manual) Seg Neutrophils # Lymphocytes # (Manual) Monocytes # (Manual) POC ABG pH POC ABG pCO2 POC ABG pO2 VBG pH Sodium Potassium Chloride 109.8 H Carbon Dioxide BUN 22 H Creatinine 1.7 H Glucose 260 H POC Glucose 312 H Hemoglobin A1c Lactic Acid Calcium 7.2 L Phosphorus TIBC Transferrin Ferritin AST Total Creatine Kinase Troponin T NT-Pro-B Natriuret Pep Total Protein Albumin Triglycerides Cholesterol LDL Cholesterol Direct Urine Creatinine Urine Microalbumin Urine Chloride Urine Total Protein Miscellaneous Test Crossmatch See Detail 04/04/18 04/05/18 04/05/18 22:23 06:10 06:10 WBC RBC 2.97 L Hgb 8.6 L Hct 25.0 L MCV MCH MCHC RDW Plt Count Lymph % (Auto) [place] % (Auto) 15.9 H Lymph # [place] # 1.2 H Seg Neutrophils % Seg Neuts % (Manual) Lymphocytes % (Manual) Monocytes % (Manual) Eosinophils % (Manual) Seg Neutrophils # Lymphocytes # (Manual) Monocytes # (Manual) POC ABG pH POC ABG pCO2 POC ABG pO2 VBG pH Sodium Potassium Chloride 108.4 H Carbon Dioxide 20 L BUN Creatinine 1.9 H Glucose 42 L POC Glucose 116 H Hemoglobin A1c Lactic Acid Calcium 7.3 L Phosphorus TIBC Transferrin Ferritin AST Total Creatine Kinase Troponin T NT-Pro-B Natriuret Pep Total Protein 5.7 L Albumin 2.3 L Triglycerides Cholesterol LDL Cholesterol Direct Urine Creatinine Urine Microalbumin Urine Chloride Urine Total Protein Miscellaneous Test Crossmatch 04/05/18 04/05/18 04/05/18 06:18 06:20 12:17 WBC RBC Hgb Hct MCV MCH MCHC RDW Plt Count Lymph % (Auto) [place] % (Auto) Lymph # [place] # Seg Neutrophils % Seg Neuts % (Manual) Lymphocytes % (Manual) Monocytes % (Manual) Eosinophils % (Manual) Seg Neutrophils # Lymphocytes # (Manual) Monocytes # (Manual) POC ABG pH POC ABG pCO2 POC ABG pO2 VBG pH Sodium Potassium Chloride Carbon Dioxide BUN Creatinine Glucose POC Glucose 44 L 123 H Hemoglobin A1c Lactic Acid Calcium Phosphorus TIBC Transferrin Ferritin AST Total Creatine Kinase Troponin T NT-Pro-B Natriuret Pep Total Protein Albumin Triglycerides Cholesterol LDL Cholesterol Direct Urine Creatinine 112.0 H Urine Microalbumin Urine Chloride Urine Total Protein Miscellaneous Test Crossmatch 04/05/18 04/05/18 04/06/18 16:33 21:29 07:06 WBC RBC Hgb Hct MCV MCH MCHC RDW Plt Count Lymph % (Auto) [place] % (Auto) Lymph # [place] # Seg Neutrophils % Seg Neuts % (Manual) Lymphocytes % (Manual) Monocytes % (Manual) Eosinophils % (Manual) Seg Neutrophils # Lymphocytes # (Manual) Monocytes # (Manual) POC ABG pH POC ABG pCO2 POC ABG pO2 VBG pH Sodium Potassium Chloride Carbon Dioxide BUN Creatinine Glucose POC Glucose 268 H 207 H 42 L Hemoglobin A1c Lactic Acid Calcium Phosphorus TIBC Transferrin Ferritin AST Total Creatine Kinase Troponin T NT-Pro-B Natriuret Pep Total Protein Albumin Triglycerides Cholesterol LDL Cholesterol Direct Urine Creatinine Urine Microalbumin Urine Chloride Urine Total Protein Miscellaneous Test Crossmatch 04/06/18 04/06/18 04/06/18 11:54 16:40 21:14 WBC RBC Hgb Hct MCV MCH MCHC RDW Plt Count Lymph % (Auto) [place] % (Auto) Lymph # [place] # Seg Neutrophils % Seg Neuts % (Manual) Lymphocytes % (Manual) Monocytes % (Manual) Eosinophils % (Manual) Seg Neutrophils # Lymphocytes # (Manual) Monocytes # (Manual) POC ABG pH POC ABG pCO2 POC ABG pO2 VBG pH Sodium Potassium Chloride Carbon Dioxide BUN Creatinine Glucose POC Glucose 177 H 188 H 336 H Hemoglobin A1c Lactic Acid Calcium Phosphorus TIBC Transferrin Ferritin AST Total Creatine Kinase Troponin T NT-Pro-B Natriuret Pep Total Protein Albumin Triglycerides Cholesterol LDL Cholesterol Direct Urine Creatinine Urine Microalbumin Urine Chloride Urine Total Protein Miscellaneous Test Crossmatch 04/07/18 04/07/18 04/07/18 05:46 05:46 05:46 WBC RBC 2.92 L Hgb 8.2 L Hct 25.0 L MCV MCH MCHC RDW Plt Count Lymph % (Auto) [place] % (Auto) 12.9 H Lymph # 1.1 L [place] # Seg Neutrophils % Seg Neuts % (Manual) Lymphocytes % (Manual) Monocytes % (Manual) Eosinophils % (Manual) Seg Neutrophils # Lymphocytes # (Manual) Monocytes # (Manual) POC ABG pH POC ABG pCO2 POC ABG pO2 VBG pH Sodium 131 L D Potassium Chloride 96.6 L Carbon Dioxide 19 L BUN 26 H Creatinine 2.7 H Glucose 247 H POC Glucose Hemoglobin A1c Lactic Acid Calcium 7.7 L Phosphorus TIBC Transferrin Ferritin AST Total Creatine Kinase Troponin T NT-Pro-B Natriuret Pep 1858 H Total Protein Albumin Triglycerides Cholesterol LDL Cholesterol Direct Urine Creatinine Urine Microalbumin Urine Chloride Urine Total Protein Miscellaneous Test Crossmatch 04/07/18 04/07/18 04/07/18 06:00 11:31 14:00 WBC RBC Hgb Hct MCV MCH MCHC RDW Plt Count Lymph % (Auto) [place] % (Auto) Lymph # [place] # Seg Neutrophils % Seg Neuts % (Manual) Lymphocytes % (Manual) Monocytes % (Manual) Eosinophils % (Manual) Seg Neutrophils # Lymphocytes # (Manual) Monocytes # (Manual) POC ABG pH POC ABG pCO2 POC ABG pO2 VBG pH Sodium Potassium Chloride Carbon Dioxide BUN Creatinine Glucose POC Glucose 288 H 373 H Hemoglobin A1c Lactic Acid Calcium Phosphorus TIBC Transferrin Ferritin AST Total Creatine Kinase Troponin T NT-Pro-B Natriuret Pep Total Protein Albumin Triglycerides Cholesterol LDL Cholesterol Direct Urine Creatinine 76.8 H Urine Microalbumin Urine Chloride 91.4 L Urine Total Protein Miscellaneous Test Crossmatch 04/07/18 04/07/18 04/07/18 16:12 18:32 22:00 WBC RBC Hgb Hct MCV MCH MCHC RDW Plt Count Lymph % (Auto) [place] % (Auto) Lymph # [place] # Seg Neutrophils % Seg Neuts % (Manual) Lymphocytes % (Manual) Monocytes % (Manual) Eosinophils % (Manual) Seg Neutrophils # Lymphocytes # (Manual) Monocytes # (Manual) POC ABG pH POC ABG pCO2 POC ABG pO2 VBG pH Sodium Potassium Chloride Carbon Dioxide BUN Creatinine Glucose POC Glucose 280 H 269 H 145 H Hemoglobin A1c Lactic Acid Calcium Phosphorus TIBC Transferrin Ferritin AST Total Creatine Kinase Troponin T NT-Pro-B Natriuret Pep Total Protein Albumin Triglycerides Cholesterol LDL Cholesterol Direct Urine Creatinine Urine Microalbumin Urine Chloride Urine Total Protein Miscellaneous Test Crossmatch 04/08/18 04/08/18 04/08/18 05:38 05:38 06:08 WBC RBC 2.76 L Hgb 7.8 L Hct 23.7 L MCV MCH MCHC RDW Plt Count Lymph % (Auto) [place] % (Auto) 14.7 H Lymph # [place] # 0.9 H Seg Neutrophils % Seg Neuts % (Manual) Lymphocytes % (Manual) Monocytes % (Manual) Eosinophils % (Manual) Seg Neutrophils # Lymphocytes # (Manual) Monocytes # (Manual) POC ABG pH POC ABG pCO2 POC ABG pO2 VBG pH Sodium 146 H D Potassium Chloride 113.3 H Carbon Dioxide 21 L BUN 28 H Creatinine 3.2 H Glucose 113 H POC Glucose 119 H Hemoglobin A1c Lactic Acid Calcium 8.0 L Phosphorus TIBC Transferrin Ferritin AST Total Creatine Kinase Troponin T NT-Pro-B Natriuret Pep Total Protein 6.0 L Albumin 2.9 L Triglycerides Cholesterol LDL Cholesterol Direct Urine Creatinine Urine Microalbumin Urine Chloride Urine Total Protein Miscellaneous Test Crossmatch 04/08/18 04/08/18 04/08/18 12:00 17:07 17:30 WBC RBC Hgb Hct MCV MCH MCHC RDW Plt Count Lymph % (Auto) [place] % (Auto) Lymph # [place] # Seg Neutrophils % Seg Neuts % (Manual) Lymphocytes % (Manual) Monocytes % (Manual) Eosinophils % (Manual) Seg Neutrophils # Lymphocytes # (Manual) Monocytes # (Manual) POC ABG pH POC ABG pCO2 POC ABG pO2 VBG pH Sodium Potassium Chloride Carbon Dioxide BUN Creatinine Glucose POC Glucose 232 H 230 H Hemoglobin A1c Lactic Acid Calcium Phosphorus TIBC Transferrin Ferritin AST Total Creatine Kinase Troponin T NT-Pro-B Natriuret Pep Total Protein Albumin Triglycerides Cholesterol LDL Cholesterol Direct Urine Creatinine 63.0 H Urine Microalbumin 206.9 H Urine Chloride Urine Total Protein 288 H Miscellaneous Test Crossmatch 04/08/18 04/09/18 04/09/18 21:06 06:47 10:08 WBC RBC Hgb Hct MCV MCH MCHC RDW Plt Count Lymph % (Auto) [place] % (Auto) Lymph # [place] # Seg Neutrophils % Seg Neuts % (Manual) Lymphocytes % (Manual) Monocytes % (Manual) Eosinophils % (Manual) Seg Neutrophils # Lymphocytes # (Manual) Monocytes # (Manual) POC ABG pH POC ABG pCO2 POC ABG pO2 VBG pH Sodium Potassium Chloride 107.9 H Carbon Dioxide 21 L BUN 29 H Creatinine 3.1 H Glucose POC Glucose 243 H 54 L Hemoglobin A1c Lactic Acid Calcium 7.9 L Phosphorus TIBC Transferrin Ferritin AST Total Creatine Kinase Troponin T NT-Pro-B Natriuret Pep Total Protein Albumin Triglycerides Cholesterol LDL Cholesterol Direct Urine Creatinine Urine Microalbumin Urine Chloride Urine Total Protein Miscellaneous Test Crossmatch 04/09/18 04/09/18 04/09/18 12:11 16:25 21:14 WBC RBC Hgb Hct MCV MCH MCHC RDW Plt Count Lymph % (Auto) [place] % (Auto) Lymph # [place] # Seg Neutrophils % Seg Neuts % (Manual) Lymphocytes % (Manual) Monocytes % (Manual) Eosinophils % (Manual) Seg Neutrophils # Lymphocytes # (Manual) Monocytes # (Manual) POC ABG pH POC ABG pCO2 POC ABG pO2 VBG pH Sodium Potassium Chloride Carbon Dioxide BUN Creatinine Glucose POC Glucose 108 H 235 H 224 H Hemoglobin A1c Lactic Acid Calcium Phosphorus TIBC Transferrin Ferritin AST Total Creatine Kinase Troponin T NT-Pro-B Natriuret Pep Total Protein Albumin Triglycerides Cholesterol LDL Cholesterol Direct Urine Creatinine Urine Microalbumin Urine Chloride Urine Total Protein Miscellaneous Test Crossmatch 04/10/18 04/10/18 04/10/18 06:33 09:05 11:12 WBC RBC 2.96 L Hgb 8.4 L Hct 25.7 L MCV MCH MCHC RDW Plt Count Lymph % (Auto) [place] % (Auto) 13.4 H Lymph # 0.9 L [place] # Seg Neutrophils % Seg Neuts % (Manual) Lymphocytes % (Manual) Monocytes % (Manual) Eosinophils % (Manual) Seg Neutrophils # Lymphocytes # (Manual) Monocytes # (Manual) POC ABG pH POC ABG pCO2 POC ABG pO2 VBG pH Sodium Potassium Chloride Carbon Dioxide 20 L BUN 31 H Creatinine 3.1 H Glucose 145 H POC Glucose 112 H Hemoglobin A1c Lactic Acid Calcium 7.9 L Phosphorus TIBC Transferrin Ferritin AST Total Creatine Kinase Troponin T NT-Pro-B Natriuret Pep Total Protein Albumin Triglycerides Cholesterol LDL Cholesterol Direct Urine Creatinine Urine Microalbumin Urine Chloride Urine Total Protein Miscellaneous Test Crossmatch 04/10/18 04/10/18 04/10/18 11:57 21:05 21:39 WBC RBC Hgb Hct MCV MCH MCHC RDW Plt Count Lymph % (Auto) [place] % (Auto) Lymph # [place] # Seg Neutrophils % Seg Neuts % (Manual) Lymphocytes % (Manual) Monocytes % (Manual) Eosinophils % (Manual) Seg Neutrophils # Lymphocytes # (Manual) Monocytes # (Manual) POC ABG pH POC ABG pCO2 POC ABG pO2 VBG pH Sodium Potassium Chloride Carbon Dioxide BUN Creatinine Glucose 67 L POC Glucose 212 H < 40 L Hemoglobin A1c Lactic Acid Calcium Phosphorus TIBC Transferrin Ferritin AST Total Creatine Kinase Troponin T NT-Pro-B Natriuret Pep Total Protein Albumin Triglycerides Cholesterol LDL Cholesterol Direct Urine Creatinine Urine Microalbumin Urine Chloride Urine Total Protein Miscellaneous Test Crossmatch 04/10/18 04/11/18 04/11/18 21:42 05:20 05:20 WBC RBC 2.93 L Hgb 8.1 L Hct 25.1 L MCV MCH MCHC RDW Plt Count Lymph % (Auto) [place] % (Auto) 13.5 H Lymph # 0.9 L [place] # Seg Neutrophils % Seg Neuts % (Manual) Lymphocytes % (Manual) Monocytes % (Manual) Eosinophils % (Manual) Seg Neutrophils # Lymphocytes # (Manual) Monocytes # (Manual) POC ABG pH POC ABG pCO2 POC ABG pO2 VBG pH Sodium Potassium 5.1 H Chloride Carbon Dioxide 21 L BUN 30 H Creatinine 2.9 H Glucose 286 H POC Glucose 126 H Hemoglobin A1c Lactic Acid Calcium 7.5 L Phosphorus TIBC Transferrin Ferritin AST Total Creatine Kinase Troponin T NT-Pro-B Natriuret Pep Total Protein Albumin Triglycerides Cholesterol LDL Cholesterol Direct Urine Creatinine Urine Microalbumin Urine Chloride Urine Total Protein Miscellaneous Test Crossmatch 04/11/18 04/11/18 04/11/18 05:28 11:18 18:02 WBC RBC Hgb Hct MCV MCH MCHC RDW Plt Count Lymph % (Auto) [place] % (Auto) Lymph # [place] # Seg Neutrophils % Seg Neuts % (Manual) Lymphocytes % (Manual) Monocytes % (Manual) Eosinophils % (Manual) Seg Neutrophils # Lymphocytes # (Manual) Monocytes # (Manual) POC ABG pH POC ABG pCO2 POC ABG pO2 VBG pH Sodium Potassium Chloride Carbon Dioxide BUN Creatinine Glucose POC Glucose 320 H 302 H 269 H Hemoglobin A1c Lactic Acid Calcium Phosphorus TIBC Transferrin Ferritin AST Total Creatine Kinase Troponin T NT-Pro-B Natriuret Pep Total Protein Albumin Triglycerides Cholesterol LDL Cholesterol Direct Urine Creatinine Urine Microalbumin Urine Chloride Urine Total Protein Miscellaneous Test Crossmatch 04/11/18 04/11/18 04/12/18 21:51 Unknown 04:46 WBC RBC 2.75 L Hgb 7.8 L Hct 23.5 L MCV MCH MCHC RDW Plt Count Lymph % (Auto) [place] % (Auto) Lymph # [place] # Seg Neutrophils % Seg Neuts % (Manual) 73.0 H Lymphocytes % (Manual) 11.0 L Monocytes % (Manual) 15.0 H Eosinophils % (Manual) Seg Neutrophils # Lymphocytes # (Manual) 0.5 L Monocytes # (Manual) POC ABG pH POC ABG pCO2 POC ABG pO2 VBG pH Sodium Potassium Chloride Carbon Dioxide BUN Creatinine Glucose POC Glucose 183 H Hemoglobin A1c Lactic Acid Calcium Phosphorus TIBC Transferrin Ferritin AST Total Creatine Kinase Troponin T NT-Pro-B Natriuret Pep Total Protein Albumin Triglycerides Cholesterol LDL Cholesterol Direct Urine Creatinine Urine Microalbumin Urine Chloride Urine Total Protein Miscellaneous Test Flexitest 1 H Crossmatch 04/12/18 04/12/18 04/12/18 04:46 05:32 13:21 WBC RBC Hgb Hct MCV MCH MCHC RDW Plt Count Lymph % (Auto) [place] % (Auto) Lymph # [place] # Seg Neutrophils % Seg Neuts % (Manual) Lymphocytes % (Manual) Monocytes % (Manual) Eosinophils % (Manual) Seg Neutrophils # Lymphocytes # (Manual) Monocytes # (Manual) POC ABG pH POC ABG pCO2 POC ABG pO2 VBG pH Sodium Potassium Chloride Carbon Dioxide BUN 32 H Creatinine 3.1 H Glucose 64 L POC Glucose 54 L 366 H Hemoglobin A1c Lactic Acid Calcium 7.9 L Phosphorus TIBC Transferrin Ferritin AST Total Creatine Kinase Troponin T NT-Pro-B Natriuret Pep Total Protein Albumin Triglycerides Cholesterol LDL Cholesterol Direct Urine Creatinine Urine Microalbumin Urine Chloride Urine Total Protein Miscellaneous Test Crossmatch 04/12/18 04/12/18 04/13/18 16:16 21:23 05:11 WBC RBC 2.81 L Hgb 8.0 L Hct 24.4 L MCV MCH MCHC RDW Plt Count Lymph % (Auto) [place] % (Auto) Lymph # [place] # Seg Neutrophils % Seg Neuts % (Manual) Lymphocytes % (Manual) Monocytes % (Manual) 14.0 H Eosinophils % (Manual) Seg Neutrophils # Lymphocytes # (Manual) 1.1 L Monocytes # (Manual) POC ABG pH POC ABG pCO2 POC ABG pO2 VBG pH Sodium Potassium Chloride Carbon Dioxide BUN Creatinine Glucose POC Glucose 310 H 201 H Hemoglobin A1c Lactic Acid Calcium Phosphorus TIBC Transferrin Ferritin AST Total Creatine Kinase Troponin T NT-Pro-B Natriuret Pep Total Protein Albumin Triglycerides Cholesterol LDL Cholesterol Direct Urine Creatinine Urine Microalbumin Urine Chloride Urine Total Protein Miscellaneous Test Crossmatch 04/13/18 04/13/18 04/13/18 05:11 12:12 16:35 WBC RBC Hgb Hct MCV MCH MCHC RDW Plt Count Lymph % (Auto) [place] % (Auto) Lymph # [place] # Seg Neutrophils % Seg Neuts % (Manual) Lymphocytes % (Manual) Monocytes % (Manual) Eosinophils % (Manual) Seg Neutrophils # Lymphocytes # (Manual) Monocytes # (Manual) POC ABG pH POC ABG pCO2 POC ABG pO2 VBG pH Sodium Potassium Chloride Carbon Dioxide BUN 29 H Creatinine 2.8 H Glucose 73 L POC Glucose 200 H 168 H Hemoglobin A1c Lactic Acid Calcium 7.9 L Phosphorus TIBC Transferrin Ferritin AST Total Creatine Kinase Troponin T NT-Pro-B Natriuret Pep Total Protein Albumin Triglycerides Cholesterol LDL Cholesterol Direct Urine Creatinine Urine Microalbumin Urine Chloride Urine Total Protein Miscellaneous Test Crossmatch 04/13/18 04/14/18 04/14/18 21:36 06:06 07:45 WBC RBC 2.84 L Hgb 7.9 L Hct 24.2 L MCV MCH MCHC RDW Plt Count Lymph % (Auto) [place] % (Auto) Lymph # [place] # Seg Neutrophils % Seg Neuts % (Manual) Lymphocytes % (Manual) Monocytes % (Manual) 11.0 H Eosinophils % (Manual) 6.0 H Seg Neutrophils # Lymphocytes # (Manual) 0.9 L Monocytes # (Manual) POC ABG pH POC ABG pCO2 POC ABG pO2 VBG pH Sodium Potassium Chloride Carbon Dioxide BUN Creatinine Glucose POC Glucose 164 H 45 L Hemoglobin A1c Lactic Acid Calcium Phosphorus TIBC Transferrin Ferritin AST Total Creatine Kinase Troponin T NT-Pro-B Natriuret Pep Total Protein Albumin Triglycerides Cholesterol LDL Cholesterol Direct Urine Creatinine Urine Microalbumin Urine Chloride Urine Total Protein Miscellaneous Test Crossmatch 04/14/18 04/14/18 07:45 11:26 WBC RBC Hgb Hct MCV MCH MCHC RDW Plt Count Lymph % (Auto) [place] % (Auto) Lymph # [place] # Seg Neutrophils % Seg Neuts % (Manual) Lymphocytes % (Manual) Monocytes % (Manual) Eosinophils % (Manual) Seg Neutrophils # Lymphocytes # (Manual) Monocytes # (Manual) POC ABG pH POC ABG pCO2 POC ABG pO2 VBG pH Sodium Potassium Chloride Carbon Dioxide BUN 29 H Creatinine 2.8 H Glucose POC Glucose 165 H Hemoglobin A1c Lactic Acid Calcium 8.0 L Phosphorus TIBC Transferrin Ferritin AST Total Creatine Kinase Troponin T NT-Pro-B Natriuret Pep Total Protein Albumin Triglycerides Cholesterol LDL Cholesterol Direct Urine Creatinine Urine Microalbumin Urine Chloride Urine Total Protein Miscellaneous Test Crossmatch Allied health notes reviewed: nursing
--- NOTE | 2018-04-14 14:20 | Progress Note ---
Assessment and Plan - Patient Problems (1) BELKIS (acute kidney injury) Current Visit: Yes Status: Acute Plan to address problem: Acute kidney injury workup still in progress. Currently workup for vasculitis. Several markers have returned negative. Renal following. Patient renal function improved hepatitis HIV negative. Still awaiting some markers. Vasculitis (2) Anasarca Current Visit: Yes Status: Acute Plan to address problem: Entities to improve with aggressive diuresis. (3) Anemia Current Visit: Yes Status: Acute Plan to address problem: Multifactorial chronic disease and anemia. Given patient has bilateral upper extremity DVT may benefit from workup for hypercoagulable state. Patient did give some history of family members having clots and strokes. (4) DKA (diabetic ketoacidoses) Current Visit: Yes Status: Acute Qualifiers: Diabetes mellitus type: type 1 Diabetes mellitus complication detail: with coma Qualified Code(s): E10.11 - Type 1 diabetes mellitus with ketoacidosis with coma Plan to address problem: DKA resolved patient's Accu-Cheks are much improved. In use sliding-scale insulin and long-acting insulin. (5) Superficial venous thrombosis of both upper extremities Current Visit: Yes Status: Acute Plan to address problem: Beneficial venous thrombosis bilateral upper extremity and anasarca. Could be hypercoagulable state versus autoimmune disease that is causing it. Workup in progress. (6) Hypertension associated with stage 4 chronic kidney disease due to type 2 diabetes mellitus Current Visit: Yes Status: Acute Plan to address problem: Patient has hypertensive emergency or urgency. 190 and 185/105. We will add labetalol 200 mg twice a day to try to gain more aggressive control blood pressure. During this time we'll decreased the beta-blockade of Coreg to 3.25 twice a day. History Interval history: Patient doing much better today. Edema is resolving. Anasarca is resolving. Patient hungry able to walk the basurto today. All questions and concerns answered to patient and family's satisfaction at bedside. Hospitalist Physical - Constitutional Vitals: Temp Pulse Resp BP Pulse Ox 99.1 F 76 20 178/92 94 04/14/18 07:13 04/14/18 14:03 04/14/18 07:13 04/14/18 14:03 04/14/18 07:13 General appearance: Present: no acute distress, well-nourished, obese - EENT Eyes: Present: PERRL, EOM intact ENT: hearing intact, clear oral mucosa, dentition normal, no oropharyngeal erythema, no poor dentition, no thrush, no ulcerations - Neck Neck: Present: supple, normal ROM - Respiratory Respiratory: bilateral: CTA - Cardiovascular Rhythm: regular - Extremities Extremities: no ischemia, pulses intact, pulses symmetrical, normal temperature , normal color, Full ROM Extremity abnormal: edema Peripheral Pulses: within normal limits - Abdominal General gastrointestinal: soft, non-tender, non-distended - Integumentary Integumentary: Present: clear, warm, dry. Absent: jaundice, rash, clammy - Psychiatric Psychiatric: appropriate mood/affect, intact judgment & insight - Neurologic Neurologic: CNII-XII intact, moves all extremities Results - Labs CBC & Chem 7: 04/14/18 07:45 04/14/18 07:45 Labs: Laboratory Last Values WBC 6.0 K/mm3 (4.5-11.0) 04/14/18 07:45 RBC 2.84 M/mm3 (3.65-5.03) L 04/14/18 07:45 Hgb 7.9 gm/dl (11.8-15.2) L 04/14/18 07:45 Hct 24.2 % (35.5-45.6) L 04/14/18 07:45 MCV 85 fl (84-94) 04/14/18 07:45 MCH 28 pg (28-32) 04/14/18 07:45 MCHC 33 % (32-34) 04/14/18 07:45 RDW 14.2 % (13.2-15.2) 04/14/18 07:45 Plt Count 320 K/mm3 (140-440) 04/14/18 07:45 Lymph % (Auto) 15.9 % (13.4-35.0) 04/11/18 05:20 [place] % (Auto) [place] 04/14/18 07:45 Eos % (Auto) 2.9 % (0.0-4.3) 04/11/18 05:20 Baso % (Auto) 0.7 % (0.0-1.8) 04/11/18 05:20 Lymph # 0.9 K/mm3 (1.2-5.4) L 04/11/18 05:20 [place] # 0.8 K/mm3 (0.0-0.8) 04/11/18 05:20 Eos # 0.2 K/mm3 (0.0-0.4) 04/11/18 05:20 Baso # 0.0 K/mm3 (0.0-0.1) 04/11/18 05:20 Add Manual Diff Complete 04/14/18 07:45 Total Counted 100 04/14/18 07:45 Seg Neutrophils % 67.0 % (40.0-70.0) 04/11/18 05:20 Seg Neuts % (Manual) 67.0 % (40.0-70.0) 04/14/18 07:45 Band Neutrophils % 1.0 % 04/14/18 07:45 Lymphocytes % (Manual) 15.0 % (13.4-35.0) 04/14/18 07:45 Reactive Lymphs % (Man) 0 % 04/14/18 07:45 Monocytes % (Manual) 11.0 % (0.0-7.3) H 04/14/18 07:45 Eosinophils % (Manual) 6.0 % (0.0-4.3) H 04/14/18 07:45 Basophils % (Manual) 0 % (0.0-1.8) 04/14/18 07:45 Metamyelocytes % 0 % 04/14/18 07:45 Myelocytes % 0 % 04/14/18 07:45 Promyelocytes % 0 % 04/14/18 07:45 Blast Cells % 0 % 04/14/18 07:45 Nucleated RBC % Not Reportable 04/14/18 07:45 Seg Neutrophils # 3.9 K/mm3 (1.8-7.7) 04/11/18 05:20 Seg Neutrophils # Man 4.0 K/mm3 (1.8-7.7) 04/14/18 07:45 Band Neutrophils # 0.1 K/mm3 04/14/18 07:45 Lymphocytes # (Manual) 0.9 K/mm3 (1.2-5.4) L 04/14/18 07:45 Abs React Lymphs (Man) 0.0 K/mm3 04/14/18 07:45 Monocytes # (Manual) 0.7 K/mm3 (0.0-0.8) 04/14/18 07:45 Eosinophils # (Manual) 0.4 K/mm3 (0.0-0.4) 04/14/18 07:45 Basophils # (Manual) 0.0 K/mm3 (0.0-0.1) 04/14/18 07:45 Metamyelocytes # 0.0 K/mm3 04/14/18 07:45 Myelocytes # 0.0 K/mm3 04/14/18 07:45 Promyelocytes # 0.0 K/mm3 04/14/18 07:45 Blast Cells # 0.0 K/mm3 04/14/18 07:45 WBC Morphology Not Reportable 04/14/18 07:45 Hypersegmented Neuts Not Reportable 04/14/18 07:45 Hyposegmented Neuts Not Reportable 04/14/18 07:45 Hypogranular Neuts Not Reportable 04/14/18 07:45 Smudge Cells Not Reportable 04/14/18 07:45 Toxic Granulation Not Reportable 04/14/18 07:45 Toxic Vacuolation Not Reportable 04/14/18 07:45 Dohle Bodies Not Reportable 04/14/18 07:45 Pelger-Huet Anomaly Not Reportable 04/14/18 07:45 Loi Rods Not Reportable 04/14/18 07:45 Platelet Estimate Consistent w auto 04/14/18 07:45 Clumped Platelets Not Reportable 04/14/18 07:45 Plt Clumps, EDTA Not Reportable 04/14/18 07:45 Large Platelets Not Reportable 04/14/18 07:45 Giant Platelets Not Reportable 04/14/18 07:45 Platelet Satelliting Not Reportable 04/14/18 07:45 Plt Morphology Comment Not Reportable 04/14/18 07:45 RBC Morphology Not Reportable 04/14/18 07:45 Dimorphic RBCs Not Reportable 04/14/18 07:45 Polychromasia Not Reportable 04/14/18 07:45 Hypochromasia Not Reportable 04/14/18 07:45 Poikilocytosis Not Reportable 04/14/18 07:45 Anisocytosis Not Reportable 04/14/18 07:45 Microcytosis Not Reportable 04/14/18 07:45 Macrocytosis Not Reportable 04/14/18 07:45 Spherocytes Not Reportable 04/14/18 07:45 Pappenheimer Bodies Not Reportable 04/14/18 07:45 Sickle Cells Not Reportable 04/14/18 07:45 Target Cells Few 04/14/18 07:45 Tear Drop Cells Not Reportable 04/14/18 07:45 Ovalocytes Not Reportable 04/14/18 07:45 Helmet Cells Not Reportable 04/14/18 07:45 [place] Bodies Not Reportable 04/14/18 07:45 [place] Rings Not Reportable 04/14/18 07:45 [place] Cells Not Reportable 04/14/18 07:45 Bite Cells Not Reportable 04/14/18 07:45 Crenated Cell Not Reportable 04/14/18 07:45 Elliptocytes Not Reportable 04/14/18 07:45 Acanthocytes (Spur) Not Reportable 04/14/18 07:45 Rouleaux Not Reportable 04/14/18 07:45 Hemoglobin C Crystals Not Reportable 04/14/18 07:45 Schistocytes Not Reportable 04/14/18 07:45 Malaria parasites Not Reportable 04/14/18 07:45 Lev Bodies Not Reportable 04/14/18 07:45 Hem Pathologist Commnt No 04/14/18 07:45 Lupus Anticoagulant see below 04/10/18 17:21 POC ABG pH 7.405 (7.35-7.45) 03/28/18 03:49 POC ABG pCO2 38.6 (35-45) 03/28/18 03:49 POC ABG pO2 102 (80-105) 03/28/18 03:49 POC ABG HCO3 24.2 03/28/18 03:49 POC ABG Total CO2 25 03/28/18 03:49 POC ABG O2 Sat 98 03/28/18 03:49 POC ABG Base Excess 0 03/28/18 03:49 VBG pH 7.000 (7.320-7.420) L* 03/25/18 14:41 FiO2 25 % 03/28/18 03:49 Sodium 141 mmol/L (137-145) 04/14/18 07:45 Potassium 4.1 mmol/L (3.6-5.0) 04/14/18 07:45 Chloride 104.2 mmol/L (98-107) 04/14/18 07:45 Carbon Dioxide 25 mmol/L (22-30) 04/14/18 07:45 Anion Gap 16 mmol/L 04/14/18 07:45 BUN 29 mg/dL (9-20) H 04/14/18 07:45 Creatinine 2.8 mg/dL (0.8-1.5) H 04/14/18 07:45 Estimated GFR 29 ml/min 04/14/18 07:45 BUN/Creatinine Ratio 10 % 04/14/18 07:45 Glucose 91 mg/dL (75-100) 04/14/18 07:45 POC Glucose 165 (70-105) H 04/14/18 11:26 Hemoglobin A1c 8.9 % (4-6) H 03/25/18 18:55 Lactic Acid 1.80 mmol/L (0.7-2.0) 03/26/18 04:25 Calcium 8.0 mg/dL (8.4-10.2) L 04/14/18 07:45 Phosphorus 4.00 mg/dL (2.5-4.5) 04/14/18 07:45 Magnesium 2.00 mg/dL (1.7-2.3) 04/08/18 05:38 Iron 54 ug/dL (49-181) 03/28/18 04:35 TIBC 115 mcg/dL (250-450) L 03/28/18 04:35 Transferrin 94 mg/dl (180-329) L 03/28/18 04:35 Ferritin 412.1 ng/mL (13.0-400.0) H 03/28/18 04:35 Total Bilirubin 0.40 mg/dL (0.1-1.2) 04/08/18 05:38 Direct Bilirubin < 0.2 mg/dL (0-0.2) 03/25/18 14:08 Indirect Bilirubin 0.1 mg/dL 03/25/18 14:08 AST 20 units/L (5-40) 04/08/18 05:38 ALT 17 units/L (7-56) 04/08/18 05:38 Alkaline Phosphatase 75 units/L (35-129) 04/08/18 05:38 Total Creatine Kinase 226 units/L (55-170) H 03/25/18 18:09 CK-MB (CK-2) 3.7 ng/mL (0.0-4.0) 03/25/18 18:09 CK-MB (CK-2) Rel Index 1.6 (0-4) 03/25/18 18:09 Troponin T 0.033 ng/mL (0.00-0.029) H 03/25/18 18:09 NT-Pro-B Natriuret Pep 1858 pg/mL (0-900) H 04/07/18 05:46 Total Protein 6.0 g/dL (6.3-8.2) L 04/08/18 05:38 Albumin 2.9 g/dL (3.9-5) L 04/08/18 05:38 Albumin/Globulin Ratio 0.9 % 04/08/18 05:38 Triglycerides 185 mg/dL (2-149) H 03/25/18 18:09 Cholesterol 215 mg/dL (50-199) H 03/25/18 18:09 LDL Cholesterol Direct 144 mg/dL (50-130) H 03/25/18 18:09 HDL Cholesterol 48 mg/dL (40-59) 03/25/18 18:09 Cholesterol/HDL Ratio 4.47 % 03/25/18 18:09 Urine Color Yellow (Yellow) 04/08/18 17:30 Urine Turbidity Clear (Clear) 04/08/18 17:30 Urine pH 5.0 (5.0-7.0) 04/08/18 17:30 Ur Specific [place] 1.011 (1.003-1.030) 04/08/18 17:30 Urine Protein 100 mg/dl mg/dL (Negative) 04/08/18 17:30 Urine Glucose (UA) Neg mg/dL (Negative) 04/08/18 17:30 Urine Ketones Neg mg/dL (Negative) 04/08/18 17:30 Urine Blood Sm (Negative) 04/08/18 17:30 Urine Nitrite Neg (Negative) 04/08/18 17:30 Urine Bilirubin Neg (Negative) 04/08/18 17:30 Urine Urobilinogen < 2.0 mg/dL (<2.0) 04/08/18 17:30 Ur Leukocyte Esterase Neg (Negative) 04/08/18 17:30 Urine WBC (Auto) < 1.0 /HPF (0.0-6.0) 04/08/18 17:30 Urine RBC (Auto) 4.0 /HPF (0.0-6.0) 04/08/18 17:30 Urine Bacteria (Auto) 1+ /HPF (Negative) 04/08/18 17:30 Uric Acid Crystals 2+ 04/05/18 06:18 Hyaline Casts 1 /LPF 04/08/18 17:30 Urine Mucus Few /HPF 04/08/18 17:30 Urine Yeast (Budding) 1+ /HPF 04/05/18 06:18 Urine Eosinophils None seen (None Seen) 04/07/18 14:00 Urine Creatinine 63.0 mg/dL (0.1-20.0) H 04/08/18 17:30 Urine Microalbumin 206.9 mg/dL (0.1-34.0) H 04/08/18 17:30 Microalb/Creat Ratio 3284.1 ug/mg 04/08/18 17:30 Protein/Creatinin Ratio 4.57 04/08/18 17:30 Urine Sodium 94 mmol/L 04/07/18 14:00 Urine Chloride 91.4 mmolL (110-250) L 04/07/18 14:00 Urine Urea Nitrogen 215 04/07/18 14:00 Urine Total Protein 288 mg/dL (5-11.8) H 04/08/18 17:30 Random Vancomycin 8.9 ug/mL (0-40.0) 04/10/18 09:05 Urine Opiates Screen Presumptive negative 03/25/18 14:19 Urine Methadone Screen Presumptive negative 03/25/18 14:19 Ur Barbiturates Screen Presumptive negative 03/25/18 14:19 Ur Phencyclidine Scrn Presumptive negative 03/25/18 14:19 Ur Amphetamines Screen Presumptive negative 03/25/18 14:19 U Benzodiazepines Scrn Presumptive negative 03/25/18 14:19 Urine Cocaine Screen Presumptive negative 03/25/18 14:19 U Marijuana (THC) Screen Presumptive negative 03/25/18 14:19 Drugs of Abuse Note Disclamer 03/25/18 14:19 Immunofix Electrophor see below 04/10/18 17:21 Complement C3 118 mg/dL (82-185) 04/10/18 17:21 Complement C4 37 mg/dL (15-53) 04/10/18 17:21 Tot Complement (CH50) 60 U/mL (31-60) 04/10/18 17:21 Hepatitis A IgM Ab Non-reactive (NonReactive) 04/10/18 17:21 Hep Bs Antigen Non-reactive (Negative) 04/10/18 17:21 Hep B Core IgM Ab Non-reactive (NonReactive) 04/10/18 17:21 Hepatitis C Antibody Non-reactive (NonReactive) 04/10/18 17:21 HIV 1&2 Antibody Rapid Non react (Non React) 04/10/18 17:21 HIV P24 Antigen Non react (Non React) 04/10/18 17:21 Miscellaneous Test Flexitest 1 H 04/11/18 Unknown Blood Type O POSITIVE 04/04/18 20:14 Antibody Screen Negative 04/04/18 20:14 Crossmatch See Detail 04/04/18 20:14
[2018-04-14 21:40] LABS: ANA Screen, IFA Positive (Negative)
[2018-04-14 22:02] LABS: Albumin 2.6 g/dL (3.8-4.8); Gamma Globulin 1.3 g/dL (0.8-1.7)
[2018-04-15 06:29] LABS: Hematocrit 24.8 % (35.5-45.6); Hemoglobin 8.2 gm/dl (11.8-15.2); Mean Corpuscular HGB Conc 33 % (32-34); Mean Corpuscular Hemoglobin 28 pg (28-32); Mean Corpuscular Volume 86 fl (84-94); Platelet Count 325 K/mm3 (140-440); Red Blood Count 2.89 M/mm3 (3.65-5.03); Red Cell Distribution Width 14.4 % (13.2-15.2)
[2018-04-15] MEDS: APRESOLINE PO SCH ×3 (06:43→21:58)
[2018-04-15 06:57] LABS: Calcium 8.2 mg/dL (8.4-10.2)
[2018-04-15 07:21] LABS: Basophils % (Manual) 0 % (0.0-1.8); Total Cells Counted 100
[2018-04-15 07:22] LABS: Anisocytosis 1+; Platelet Estimate Cons
[2018-04-15] MEDS: CATAPRES PO SCH ×3 (07:52→20:29)
[2018-04-15] MEDS: HumuLIN R SUB-Q SCH ×4 (07:53→21:57)
[2018-04-15] MEDS: MINIPRESS PO SCH ×2 (09:45→21:59)
[2018-04-15] MEDS: NORMODYNE PO SCH ×2 (09:46→22:00)
[2018-04-15] MEDS: PROzac PO SCH (09:46)
[2018-04-15] MEDS: COREG PO SCH ×2 (09:46→22:00)
[2018-04-15] MEDS: BABY ASPIRIN PO SCH (09:46)
[2018-04-15] MEDS: PEPCID PO SCH ×2 (09:46→21:58)
[2018-04-15] MEDS: LASIX PO SCH ×2 (09:46→21:59)
[2018-04-15] MEDS: LOVENOX SUB-Q SCH (09:47)
[2018-04-15] MEDS: SODIUM CHLORIDE FLUSH SYRINGE 10 ML IV SCH ×2 (12:44→21:58)
--- NOTE | 2018-04-15 12:49 | Progress Note ---
Assessment and Plan - Patient Problems (1) BELKIS (acute kidney injury) Current Visit: Yes Status: Acute Plan to address problem: Acute kidney injury workup still in progress. Currently workup for vasculitis. Several markers have returned negative. Renal following. Patient renal function improved hepatitis HIV negative. Still awaiting some markers. Vasculitis will need to discuss with renal discharge options. Vasculitis could be worked up as outpatient. (2) Anasarca Current Visit: Yes Status: Acute Plan to address problem: Entities to improve with aggressive diuresis. (3) Anemia Current Visit: Yes Status: Acute Plan to address problem: Multifactorial chronic disease and anemia. Given patient has bilateral upper extremity DVT may benefit from workup for hypercoagulable state. Patient did give some history of family members having clots and strokes. (4) DKA (diabetic ketoacidoses) Current Visit: Yes Status: Resolved Qualifiers: Diabetes mellitus type: type 1 Diabetes mellitus complication detail: with coma Qualified Code(s): E10.11 - Type 1 diabetes mellitus with ketoacidosis with coma Plan to address problem: DKA resolved patient's Accu-Cheks are much improved. In use sliding-scale insulin and long-acting insulin. (5) Superficial venous thrombosis of both upper extremities Current Visit: Yes Status: Acute Plan to address problem: Continue current anticoagulation (6) Hypertension associated with stage 4 chronic kidney disease due to type 2 diabetes mellitus Current Visit: Yes Status: Acute Plan to address problem: Retention at this time remains suboptimally controlled. We'll increase Norvasc to 10 mg daily. History Interval history: Patient continues to do well. Up walking around. Feels stronger. Hospital course complicated by uncontrolled hypertension. Still waiting complete renal workup renal workup Hospitalist Physical - Constitutional Vitals: Temp Pulse Resp BP Pulse Ox 98.6 F 75 19 158/78 94 04/15/18 07:19 04/15/18 07:19 04/15/18 07:19 04/15/18 09:46 04/15/18 07:19 General appearance: Present: no acute distress, well-nourished, obese - EENT Eyes: Present: PERRL, EOM intact ENT: hearing intact, clear oral mucosa, dentition normal - Neck Neck: Present: supple, normal ROM - Respiratory Respiratory: bilateral: CTA - Cardiovascular Rhythm: regular - Extremities Extremities: no ischemia, pulses intact, pulses symmetrical Extremity abnormal: edema, other (anasarca improving) Peripheral Pulses: within normal limits - Abdominal General gastrointestinal: soft, non-tender, non-distended - Integumentary Integumentary: Present: clear, warm, dry - Psychiatric Psychiatric: appropriate mood/affect Results - Labs CBC & Chem 7: 04/15/18 05:16 04/15/18 05:16 Labs: Laboratory Last Values WBC 5.5 K/mm3 (4.5-11.0) 04/15/18 05:16 RBC 2.89 M/mm3 (3.65-5.03) L 04/15/18 05:16 Hgb 8.2 gm/dl (11.8-15.2) L 04/15/18 05:16 Hct 24.8 % (35.5-45.6) L 04/15/18 05:16 MCV 86 fl (84-94) 04/15/18 05:16 MCH 28 pg (28-32) 04/15/18 05:16 MCHC 33 % (32-34) 04/15/18 05:16 RDW 14.4 % (13.2-15.2) 04/15/18 05:16 Plt Count 325 K/mm3 (140-440) 04/15/18 05:16 Lymph % (Auto) 15.9 % (13.4-35.0) 04/11/18 05:20 [place] % (Auto) Automatic Maintainer 04/15/18 05:16 Eos % (Auto) 2.9 % (0.0-4.3) 04/11/18 05:20 Baso % (Auto) 0.7 % (0.0-1.8) 04/11/18 05:20 Lymph # 0.9 K/mm3 (1.2-5.4) L 04/11/18 05:20 [place] # 0.8 K/mm3 (0.0-0.8) 04/11/18 05:20 Eos # 0.2 K/mm3 (0.0-0.4) 04/11/18 05:20 Baso # 0.0 K/mm3 (0.0-0.1) 04/11/18 05:20 Add Manual Diff Complete 04/15/18 05:16 Total Counted 100 04/15/18 05:16 Seg Neutrophils % 67.0 % (40.0-70.0) 04/11/18 05:20 Seg Neuts % (Manual) 62.0 % (40.0-70.0) 04/15/18 05:16 Band Neutrophils % 0 % 04/15/18 05:16 Lymphocytes % (Manual) 23.0 % (13.4-35.0) 04/15/18 05:16 Reactive Lymphs % (Man) 0 % 04/15/18 05:16 Monocytes % (Manual) 12.0 % (0.0-7.3) H 04/15/18 05:16 Eosinophils % (Manual) 3.0 % (0.0-4.3) 04/15/18 05:16 Basophils % (Manual) 0 % (0.0-1.8) 04/15/18 05:16 Metamyelocytes % 0 % 04/15/18 05:16 Myelocytes % 0 % 04/15/18 05:16 Promyelocytes % 0 % 04/15/18 05:16 Blast Cells % 0 % 04/15/18 05:16 Nucleated RBC % Not Reportable 04/15/18 05:16 Seg Neutrophils # 3.9 K/mm3 (1.8-7.7) 04/11/18 05:20 Seg Neutrophils # Man 3.4 K/mm3 (1.8-7.7) 04/15/18 05:16 Band Neutrophils # 0.0 K/mm3 04/15/18 05:16 Lymphocytes # (Manual) 1.3 K/mm3 (1.2-5.4) 04/15/18 05:16 Abs React Lymphs (Man) 0.0 K/mm3 04/15/18 05:16 Monocytes # (Manual) 0.7 K/mm3 (0.0-0.8) 04/15/18 05:16 Eosinophils # (Manual) 0.2 K/mm3 (0.0-0.4) 04/15/18 05:16 Basophils # (Manual) 0.0 K/mm3 (0.0-0.1) 04/15/18 05:16 Metamyelocytes # 0.0 K/mm3 04/15/18 05:16 Myelocytes # 0.0 K/mm3 04/15/18 05:16 Promyelocytes # 0.0 K/mm3 04/15/18 05:16 Blast Cells # 0.0 K/mm3 04/15/18 05:16 WBC Morphology Not Reportable 04/15/18 05:16 Hypersegmented Neuts Not Reportable 04/15/18 05:16 Hyposegmented Neuts Not Reportable 04/15/18 05:16 Hypogranular Neuts Not Reportable 04/15/18 05:16 Smudge Cells Not Reportable 04/15/18 05:16 Toxic Granulation Not Reportable 04/15/18 05:16 Toxic Vacuolation Not Reportable 04/15/18 05:16 Dohle Bodies Not Reportable 04/15/18 05:16 Pelger-Huet Anomaly Not Reportable 04/15/18 05:16 Loi Rods Not Reportable 04/15/18 05:16 Platelet Estimate Cons 04/15/18 05:16 Clumped Platelets Not Reportable 04/15/18 05:16 Plt Clumps, EDTA Not Reportable 04/15/18 05:16 Large Platelets Not Reportable 04/15/18 05:16 Giant Platelets Not Reportable 04/15/18 05:16 Platelet Satelliting Not Reportable 04/15/18 05:16 Plt Morphology Comment Not Reportable 04/15/18 05:16 RBC Morphology Not Reportable 04/15/18 05:16 Dimorphic RBCs Not Reportable 04/15/18 05:16 Polychromasia Not Reportable 04/15/18 05:16 Hypochromasia Not Reportable 04/15/18 05:16 Poikilocytosis Not Reportable 04/15/18 05:16 Anisocytosis 1+ 04/15/18 05:16 Microcytosis Not Reportable 04/15/18 05:16 Macrocytosis Not Reportable 04/15/18 05:16 Spherocytes Not Reportable 04/15/18 05:16 Pappenheimer Bodies Not Reportable 04/15/18 05:16 Sickle Cells Not Reportable 04/15/18 05:16 Target Cells Not Reportable 04/15/18 05:16 Tear Drop Cells Not Reportable 04/15/18 05:16 Ovalocytes Not Reportable 04/15/18 05:16 Helmet Cells Not Reportable 04/15/18 05:16 Joe-Idanha Bodies Not Reportable 04/15/18 05:16 [place] Rings Not Reportable 04/15/18 05:16 Kiki Cells Not Reportable 04/15/18 05:16 Bite Cells Not Reportable 04/15/18 05:16 Crenated Cell Not Reportable 04/15/18 05:16 Elliptocytes Not Reportable 04/15/18 05:16 Acanthocytes (Spur) Not Reportable 04/15/18 05:16 Rouleaux Not Reportable 04/15/18 05:16 Hemoglobin C Crystals Not Reportable 04/15/18 05:16 Schistocytes Not Reportable 04/15/18 05:16 Malaria parasites Not Reportable 04/15/18 05:16 Lev Bodies Not Reportable 04/15/18 05:16 Hem Pathologist Commnt No 04/15/18 05:16 Lupus Anticoagulant see below 04/10/18 17:21 POC ABG pH 7.405 (7.35-7.45) 03/28/18 03:49 POC ABG pCO2 38.6 (35-45) 03/28/18 03:49 POC ABG pO2 102 (80-105) 03/28/18 03:49 POC ABG HCO3 24.2 03/28/18 03:49 POC ABG Total CO2 25 03/28/18 03:49 POC ABG O2 Sat 98 03/28/18 03:49 POC ABG Base Excess 0 03/28/18 03:49 VBG pH 7.000 (7.320-7.420) L* 03/25/18 14:41 FiO2 25 % 03/28/18 03:49 Sodium 141 mmol/L (137-145) 04/15/18 05:16 Potassium 4.0 mmol/L (3.6-5.0) 04/15/18 05:16 Chloride 104.0 mmol/L (98-107) 04/15/18 05:16 Carbon Dioxide 26 mmol/L (22-30) 04/15/18 05:16 Anion Gap 15 mmol/L 04/15/18 05:16 BUN 28 mg/dL (9-20) H 04/15/18 05:16 Creatinine 2.8 mg/dL (0.8-1.5) H 04/15/18 05:16 Estimated GFR 29 ml/min 04/15/18 05:16 BUN/Creatinine Ratio 10 % 04/15/18 05:16 Glucose 151 mg/dL (75-100) H 04/15/18 05:16 POC Glucose 177 (70-105) H 04/15/18 06:46 Hemoglobin A1c 8.9 % (4-6) H 03/25/18 18:55 Lactic Acid 1.80 mmol/L (0.7-2.0) 03/26/18 04:25 Calcium 8.2 mg/dL (8.4-10.2) L 04/15/18 05:16 Phosphorus 4.00 mg/dL (2.5-4.5) 04/15/18 05:16 Magnesium 2.00 mg/dL (1.7-2.3) 04/08/18 05:38 Iron 54 ug/dL (49-181) 03/28/18 04:35 TIBC 115 mcg/dL (250-450) L 03/28/18 04:35 Transferrin 94 mg/dl (180-329) L 03/28/18 04:35 Ferritin 412.1 ng/mL (13.0-400.0) H 03/28/18 04:35 Total Bilirubin 0.40 mg/dL (0.1-1.2) 04/08/18 05:38 Direct Bilirubin < 0.2 mg/dL (0-0.2) 03/25/18 14:08 Indirect Bilirubin 0.1 mg/dL 03/25/18 14:08 AST 20 units/L (5-40) 04/08/18 05:38 ALT 17 units/L (7-56) 04/08/18 05:38 Alkaline Phosphatase 75 units/L (35-129) 04/08/18 05:38 Total Creatine Kinase 226 units/L (55-170) H 03/25/18 18:09 CK-MB (CK-2) 3.7 ng/mL (0.0-4.0) 03/25/18 18:09 CK-MB (CK-2) Rel Index 1.6 (0-4) 03/25/18 18:09 Troponin T 0.033 ng/mL (0.00-0.029) H 03/25/18 18:09 NT-Pro-B Natriuret Pep 1858 pg/mL (0-900) H 04/07/18 05:46 Serum Total Protein 5.6 g/dL (6.1-8.1) L 04/10/18 17:21 Total Protein 6.0 g/dL (6.3-8.2) L 04/08/18 05:38 Albumin 2.6 g/dL (3.8-4.8) L 04/10/18 17:21 Albumin/Globulin Ratio 0.9 % 04/08/18 05:38 [id number]-5-[id number] 0.3 g/dL (0.2-0.3) 04/10/18 17:21 [id number]-6-[id number] 0.8 g/dL (0.5-0.9) 04/10/18 17:21 Beta Globulins 0.3 g/dL (0.2-0.5) 04/10/18 17:21 Gamma Globulins 1.3 g/dL (0.8-1.7) 04/10/18 17:21 Abnorm Protein Band 1 see below 04/10/18 17:21 PEP Interpretation see below H 04/10/18 17:21 Triglycerides 185 mg/dL (2-149) H 03/25/18 18:09 Cholesterol 215 mg/dL (50-199) H 03/25/18 18:09 LDL Cholesterol Direct 144 mg/dL (50-130) H 03/25/18 18:09 HDL Cholesterol 48 mg/dL (40-59) 03/25/18 18:09 Cholesterol/HDL Ratio 4.47 % 03/25/18 18:09 Urine Color Yellow (Yellow) 04/08/18 17:30 Urine Turbidity Clear (Clear) 04/08/18 17:30 Urine pH 5.0 (5.0-7.0) 04/08/18 17:30 Ur Specific [place] 1.011 (1.003-1.030) 04/08/18 17:30 Urine Protein 100 mg/dl mg/dL (Negative) 04/08/18 17:30 Urine Glucose (UA) Neg mg/dL (Negative) 04/08/18 17:30 Urine Ketones Neg mg/dL (Negative) 04/08/18 17:30 Urine Blood Sm (Negative) 04/08/18 17:30 Urine Nitrite Neg (Negative) 04/08/18 17:30 Urine Bilirubin Neg (Negative) 04/08/18 17:30 Urine Urobilinogen < 2.0 mg/dL (<2.0) 04/08/18 17:30 Ur Leukocyte Esterase Neg (Negative) 04/08/18 17:30 Urine WBC (Auto) < 1.0 /HPF (0.0-6.0) 04/08/18 17:30 Urine RBC (Auto) 4.0 /HPF (0.0-6.0) 04/08/18 17:30 Urine Bacteria (Auto) 1+ /HPF (Negative) 04/08/18 17:30 Uric Acid Crystals 2+ 04/05/18 06:18 Hyaline Casts 1 /LPF 04/08/18 17:30 Urine Mucus Few /HPF 04/08/18 17:30 Urine Yeast (Budding) 1+ /HPF 04/05/18 06:18 Urine Eosinophils None seen (None Seen) 04/07/18 14:00 Urine Creatinine 63.0 mg/dL (0.1-20.0) H 04/08/18 17:30 Urine Microalbumin 206.9 mg/dL (0.1-34.0) H 04/08/18 17:30 Microalb/Creat Ratio 3284.1 ug/mg 04/08/18 17:30 Protein/Creatinin Ratio 4.57 04/08/18 17:30 Urine Sodium 94 mmol/L 04/07/18 14:00 Urine Chloride 91.4 mmolL (110-250) L 04/07/18 14:00 Urine Urea Nitrogen 215 04/07/18 14:00 Urine Total Protein 288 mg/dL (5-11.8) H 04/08/18 17:30 Random Vancomycin 8.9 ug/mL (0-40.0) 04/10/18 09:05 Urine Opiates Screen Presumptive negative 03/25/18 14:19 Urine Methadone Screen Presumptive negative 03/25/18 14:19 Ur Barbiturates Screen Presumptive negative 03/25/18 14:19 Ur Phencyclidine Scrn Presumptive negative 03/25/18 14:19 Ur Amphetamines Screen Presumptive negative 03/25/18 14:19 U Benzodiazepines Scrn Presumptive negative 03/25/18 14:19 Urine Cocaine Screen Presumptive negative 03/25/18 14:19 U Marijuana (THC) Screen Presumptive negative 03/25/18 14:19 Drugs of Abuse Note Disclamer 03/25/18 14:19 Immunofix Electrophor see below 04/10/18 17:21 AZALEA Screen Positive (Negative) H 04/10/18 17:21 AZALEA Titer 1:40 (Negative) H 04/10/18 17:21 AZALEA Pattern Speckled 04/10/18 17:21 Double Strand DNA Ab 2 IU/mL (<=4) 04/10/18 17:21 Complement C3 118 mg/dL (82-185) 04/10/18 17:21 Complement C4 37 mg/dL (15-53) 04/10/18 17:21 Tot Complement (CH50) 60 U/mL (31-60) 04/10/18 17:21 Hepatitis A IgM Ab Non-reactive (NonReactive) 04/10/18 17:21 Hep Bs Antigen Non-reactive (Negative) 04/10/18 17:21 Hep B Core IgM Ab Non-reactive (NonReactive) 04/10/18 17:21 Hepatitis C Antibody Non-reactive (NonReactive) 04/10/18 17:21 HIV 1&2 Antibody Rapid Non react (Non React) 04/10/18 17:21 HIV P24 Antigen Non react (Non React) 04/10/18 17:21 Miscellaneous Test Flexitest 1 H 04/11/18 Unknown Blood Type O POSITIVE 04/04/18 20:14 Antibody Screen Negative 04/04/18 20:14 Crossmatch See Detail 04/04/18 20:14
--- NOTE | 2018-04-15 13:02 | Progress Note ---
Assessment and Plan Acute respiratory failure s/p mechanical ventilator. Bilateral pleural effusions Sepsis syndrome. Diabetic ketoacidosis. Severe metabolic acidosis. Acute on chronic encephalopathy, rule out cerebrovascular accident. Medication noncompliance. Anemia. Hyperkalemia. Acute kidney injury. - supplemental oxygen as needed to keep O2 Sats > 90% - repeat CXR prn re: pulm edema and small effusions on last CXR - s/p empiric antibiotics - continue diuresis and follow electrolytes / BUN & Cr (adjust dosing per nephrology) - nephrology evaluation ongoing (awaiting serologies) - continue glycemic control with 70/30 insulin (16 units BID) and SSI - continue VTE prophylaxis - continue Stress ulcer prophylaxis - Avoid delirium, avoid benzodiazepines - Avoid nephrotoxic agents and adjust all medications for CrCl/GFR - continue PT/OT as tolerated - continue other care per attending / other consultants ..... improved overall but still borderline pulmonary status and at risk for volume overload ...25' Subjective Date of service: 04/15/18 Principal diagnosis: Acute hypoxic respiratory failure, DKA, BELKIS, Acute encephalopathy Interval history: Patient is seen today for: Acute hypoxic respiratory failure, DKA, BELKIS, Acute encephalopathy Seen and examined at bedside; 24hour events reviewed; nursing and respiratory care staff consulted; no adverse overnight events reported to me; resting peacefully in bed; feels less SOB; making urine; No N/V/F/C; denies acute chest pains Objective Vital Signs - 12hr 04/15/18 04/15/18 04/15/18 06:43 07:19 07:43 Temperature 98.6 F Pulse Rate 76 75 Respiratory 19 Rate Blood Pressure 199/82 179/72 Blood Pressure 178/80 [Left] O2 Sat by Pulse 94 Oximetry 04/15/18 04/15/18 04/15/18 07:52 09:45 09:46 Temperature Pulse Rate Respiratory Rate Blood Pressure 178/88 158/78 158/78 Blood Pressure [Left] O2 Sat by Pulse Oximetry Constitutional: no acute distress, alert, other (middle aged normocephalic and atraumatic AAM) Eyes: non-icteric ENT: oropharynx moist, other (mallampatti 2) Neck: supple, no lymphadenopathy, no JVD, other (no thyromegaly) Effort: normal Ascultation: Bilateral: diminished breath sounds, rhonchi (posterior base) Percussion: Bilateral: not dull Cardiovascular: regular rate and rhythm, other (No R/M) Gastrointestinal: normoactive bowel sounds, soft, non-tender, non-distended, other ( No HSM) Integumentary: normal Extremities: no cyanosis, pulses normal, no ischemia or petechiae, edema (2+ pedal edema) Neurologic: normal mental status, non-focal exam (grossly), pupils equal and round, CN II-XII normal, motor strength normal and Psychiatric: mood appropriate, affect normal CBC and BMP: 04/16/18 06:08 04/17/18 06:45 ABG, PT/INR, D-dimer: ABG POC ABG pH 7.405 (7.35-7.45) 03/28/18 03:49 POC ABG pCO2 38.6 (35-45) 03/28/18 03:49 POC ABG pO2 102 (80-105) 03/28/18 03:49 POC ABG HCO3 24.2 03/28/18 03:49 POC ABG Total CO2 25 03/28/18 03:49 POC ABG O2 Sat 98 03/28/18 03:49 Abnormal lab findings: Abnormal Labs 03/25/18 03/25/18 03/25/18 13:48 14:00 14:00 WBC 15.3 H RBC Hgb 10.5 L Hct MCV 95 H MCH 27 L MCHC 28 L RDW Plt Count Lymph % (Auto) 8.5 L [place] % (Auto) Lymph # [place] # Seg Neutrophils % 86.4 H Seg Neuts % (Manual) Lymphocytes % (Manual) Monocytes % (Manual) Eosinophils % (Manual) Seg Neutrophils # 13.2 H Lymphocytes # (Manual) Monocytes # (Manual) POC ABG pH POC ABG pCO2 POC ABG pO2 VBG pH Sodium 132 L Potassium 8.1 H* Chloride 87.8 L Carbon Dioxide 3 L* BUN 43 H Creatinine 2.6 H Glucose 1026 H* POC Glucose > 500 H Hemoglobin A1c Lactic Acid Calcium Phosphorus TIBC Transferrin Ferritin AST Total Creatine Kinase Troponin T NT-Pro-B Natriuret Pep Serum Total Protein Total Protein Albumin PEP Interpretation Triglycerides Cholesterol LDL Cholesterol Direct Urine Creatinine Urine Microalbumin Urine Chloride Urine Total Protein AZALEA Screen AZALEA Titer Miscellaneous Test Crossmatch 03/25/18 03/25/18 03/25/18 14:00 14:08 14:29 WBC RBC Hgb Hct MCV MCH MCHC RDW Plt Count Lymph % (Auto) [place] % (Auto) Lymph # [place] # Seg Neutrophils % Seg Neuts % (Manual) Lymphocytes % (Manual) Monocytes % (Manual) Eosinophils % (Manual) Seg Neutrophils # Lymphocytes # (Manual) Monocytes # (Manual) POC ABG pH 6.952 L POC ABG pCO2 25.8 L POC ABG pO2 559 H VBG pH Sodium Potassium Chloride Carbon Dioxide BUN Creatinine Glucose POC Glucose Hemoglobin A1c Lactic Acid 10.10 H* Calcium Phosphorus 8.70 H TIBC Transferrin Ferritin AST Total Creatine Kinase Troponin T NT-Pro-B Natriuret Pep Serum Total Protein Total Protein Albumin 2.6 L PEP Interpretation Triglycerides Cholesterol LDL Cholesterol Direct Urine Creatinine Urine Microalbumin Urine Chloride Urine Total Protein AZALEA Screen AZALEA Titer Miscellaneous Test Crossmatch 03/25/18 03/25/18 03/25/18 14:41 15:40 15:40 WBC RBC Hgb Hct MCV MCH MCHC RDW Plt Count Lymph % (Auto) [place] % (Auto) Lymph # [place] # Seg Neutrophils % Seg Neuts % (Manual) Lymphocytes % (Manual) Monocytes % (Manual) Eosinophils % (Manual) Seg Neutrophils # Lymphocytes # (Manual) Monocytes # (Manual) POC ABG pH POC ABG pCO2 POC ABG pO2 VBG pH 7.000 L* Sodium Potassium 6.7 H* Chloride 97.5 L Carbon Dioxide 5 L* BUN 43 H Creatinine 2.5 H Glucose 893 H* POC Glucose Hemoglobin A1c Lactic Acid Calcium 7.5 L Phosphorus 9.10 H TIBC Transferrin Ferritin AST Total Creatine Kinase Troponin T NT-Pro-B Natriuret Pep Serum Total Protein Total Protein Albumin PEP Interpretation Triglycerides Cholesterol LDL Cholesterol Direct Urine Creatinine Urine Microalbumin Urine Chloride Urine Total Protein [place]A Screen AZALEA Titer Miscellaneous Test Crossmatch 03/25/18 03/25/18 03/25/18 18:09 18:12 18:55 WBC RBC Hgb Hct MCV MCH MCHC RDW Plt Count Lymph % (Auto) [place] % (Auto) Lymph # [place] # Seg Neutrophils % Seg Neuts % (Manual) Lymphocytes % (Manual) Monocytes % (Manual) Eosinophils % (Manual) Seg Neutrophils # Lymphocytes # (Manual) Monocytes # (Manual) POC ABG pH POC ABG pCO2 POC ABG pO2 VBG pH Sodium 133 L Potassium 5.7 H Chloride 93.1 L Carbon Dioxide 10 L BUN 43 H Creatinine 2.5 H Glucose 786 H* POC Glucose Hemoglobin A1c 8.9 H Lactic Acid Calcium 7.8 L Phosphorus TIBC Transferrin Ferritin AST Total Creatine Kinase 226 H Troponin T 0.033 H NT-Pro-B Natriuret Pep Serum Total Protein Total Protein Albumin PEP Interpretation Triglycerides 185 H Cholesterol 215 H LDL Cholesterol Direct 144 H Urine Creatinine Urine Microalbumin Urine Chloride Urine Total Protein [place]A Screen [place]A Titer Miscellaneous Test Crossmatch 03/25/18 03/25/18 03/25/18 18:55 21:00 21:03 WBC RBC Hgb Hct MCV MCH MCHC RDW Plt Count Lymph % (Auto) [place] % (Auto) Lymph # [place] # Seg Neutrophils % Seg Neuts % (Manual) Lymphocytes % (Manual) Monocytes % (Manual) Eosinophils % (Manual) Seg Neutrophils # Lymphocytes # (Manual) Monocytes # (Manual) POC ABG pH POC ABG pCO2 POC ABG pO2 VBG pH Sodium 136 L Potassium 6.7 H* Chloride Carbon Dioxide 7 L* BUN 45 H Creatinine 2.6 H Glucose 879 H* POC Glucose > 500 H Hemoglobin A1c Lactic Acid Calcium 7.8 L Phosphorus 9.20 H TIBC Transferrin Ferritin AST Total Creatine Kinase Troponin T NT-Pro-B Natriuret Pep Serum Total Protein Total Protein Albumin PEP Interpretation Triglycerides Cholesterol LDL Cholesterol Direct Urine Creatinine Urine Microalbumin Urine Chloride Urine Total Protein [place] Screen [place]A Titer Miscellaneous Test Crossmatch 03/25/18 03/25/18 03/25/18 21:39 22:06 23:20 WBC RBC Hgb Hct MCV MCH MCHC RDW Plt Count Lymph % (Auto) [place] % (Auto) Lymph # [place] # Seg Neutrophils % Seg Neuts % (Manual) Lymphocytes % (Manual) Monocytes % (Manual) Eosinophils % (Manual) Seg Neutrophils # Lymphocytes # (Manual) Monocytes # (Manual) POC ABG pH 7.272 L POC ABG pCO2 14.2 L POC ABG pO2 263 H VBG pH Sodium Potassium Chloride Carbon Dioxide 7 L* BUN 47 H Creatinine 2.9 H Glucose 702 H* POC Glucose > 500 H Hemoglobin A1c Lactic Acid Calcium 7.6 L Phosphorus TIBC Transferrin Ferritin AST Total Creatine Kinase Troponin T NT-Pro-B Natriuret Pep Serum Total Protein Total Protein Albumin PEP Interpretation Triglycerides Cholesterol LDL Cholesterol Direct Urine Creatinine Urine Microalbumin Urine Chloride Urine Total Protein [place] Screen [place]A Titer Miscellaneous Test Crossmatch 03/25/18 03/26/18 03/26/18 23:20 00:17 01:08 WBC RBC Hgb Hct MCV MCH MCHC RDW Plt Count Lymph % (Auto) [place] % (Auto) Lymph # [place] # Seg Neutrophils % Seg Neuts % (Manual) Lymphocytes % (Manual) Monocytes % (Manual) Eosinophils % (Manual) Seg Neutrophils # Lymphocytes # (Manual) Monocytes # (Manual) POC ABG pH POC ABG pCO2 POC ABG pO2 VBG pH Sodium Potassium Chloride Carbon Dioxide BUN Creatinine Glucose POC Glucose > 500 H 447 H 484 H Hemoglobin A1c Lactic Acid Calcium Phosphorus TIBC Transferrin Ferritin AST Total Creatine Kinase Troponin T NT-Pro-B Natriuret Pep Serum Total Protein Total Protein Albumin PEP Interpretation Triglycerides Cholesterol LDL Cholesterol Direct Urine Creatinine Urine Microalbumin Urine Chloride Urine Total Protein [place] Screen [place]A Titer Miscellaneous Test Crossmatch 03/26/18 03/26/18 03/26/18 02:31 03:07 04:09 WBC RBC Hgb Hct MCV MCH MCHC RDW Plt Count Lymph % (Auto) [place] % (Auto) Lymph # [place] # Seg Neutrophils % Seg Neuts % (Manual) Lymphocytes % (Manual) Monocytes % (Manual) Eosinophils % (Manual) Seg Neutrophils # Lymphocytes # (Manual) Monocytes # (Manual) POC ABG pH POC ABG pCO2 POC ABG pO2 VBG pH Sodium Potassium Chloride Carbon Dioxide BUN Creatinine Glucose POC Glucose > 500 H 467 H 361 H Hemoglobin A1c Lactic Acid Calcium Phosphorus TIBC Transferrin Ferritin AST Total Creatine Kinase Troponin T NT-Pro-B Natriuret Pep Serum Total Protein Total Protein Albumin PEP Interpretation Triglycerides Cholesterol LDL Cholesterol Direct Urine Creatinine Urine Microalbumin Urine Chloride Urine Total Protein [place] Screen [place]A Titer Miscellaneous Test Crossmatch 03/26/18 03/26/18 03/26/18 04:25 05:24 06:19 WBC RBC Hgb Hct MCV MCH MCHC RDW Plt Count Lymph % (Auto) [place] % (Auto) Lymph # [place] # Seg Neutrophils % Seg Neuts % (Manual) Lymphocytes % (Manual) Monocytes % (Manual) Eosinophils % (Manual) Seg Neutrophils # Lymphocytes # (Manual) Monocytes # (Manual) POC ABG pH POC ABG pCO2 POC ABG pO2 VBG pH Sodium 150 H D Potassium 3.4 L D Chloride 118.3 H Carbon Dioxide 16 L D BUN 45 H Creatinine 2.7 H Glucose 278 H POC Glucose 306 H 188 H Hemoglobin A1c Lactic Acid Calcium 7.7 L Phosphorus TIBC Transferrin Ferritin AST Total Creatine Kinase Troponin T NT-Pro-B Natriuret Pep Serum Total Protein Total Protein Albumin PEP Interpretation Triglycerides Cholesterol LDL Cholesterol Direct Urine Creatinine Urine Microalbumin Urine Chloride Urine Total Protein [place] Screen [place] Titer Miscellaneous Test Crossmatch 03/26/18 03/26/18 03/26/18 07:09 08:20 09:12 WBC RBC Hgb Hct MCV MCH MCHC RDW Plt Count Lymph % (Auto) [place] % (Auto) Lymph # [place] # Seg Neutrophils % Seg Neuts % (Manual) Lymphocytes % (Manual) Monocytes % (Manual) Eosinophils % (Manual) Seg Neutrophils # Lymphocytes # (Manual) Monocytes # (Manual) POC ABG pH 7.530 H POC ABG pCO2 22.0 L POC ABG pO2 147 H VBG pH Sodium Potassium Chloride Carbon Dioxide BUN Creatinine Glucose POC Glucose 148 H 170 H Hemoglobin A1c Lactic Acid Calcium Phosphorus TIBC Transferrin Ferritin AST Total Creatine Kinase Troponin T NT-Pro-B Natriuret Pep Serum Total Protein Total Protein Albumin PEP Interpretation Triglycerides Cholesterol LDL Cholesterol Direct Urine Creatinine Urine Microalbumin Urine Chloride Urine Total Protein [place] Screen [place]A Titer Miscellaneous Test Crossmatch 03/26/18 03/26/18 03/26/18 09:15 10:30 10:46 WBC RBC Hgb Hct MCV MCH MCHC RDW Plt Count Lymph % (Auto) [place] % (Auto) Lymph # [place] # Seg Neutrophils % Seg Neuts % (Manual) Lymphocytes % (Manual) Monocytes % (Manual) Eosinophils % (Manual) Seg Neutrophils # Lymphocytes # (Manual) Monocytes # (Manual) POC ABG pH POC ABG pCO2 POC ABG pO2 VBG pH Sodium 152 H Potassium 3.1 L Chloride 121.4 H Carbon Dioxide BUN 43 H Creatinine 2.6 H Glucose 105 H POC Glucose 177 H 125 H Hemoglobin A1c Lactic Acid Calcium 7.5 L Phosphorus TIBC Transferrin Ferritin AST Total Creatine Kinase Troponin T NT-Pro-B Natriuret Pep Serum Total Protein Total Protein Albumin PEP Interpretation Triglycerides Cholesterol LDL Cholesterol Direct Urine Creatinine Urine Microalbumin Urine Chloride Urine Total Protein [place] Screen [place]A Titer Miscellaneous Test Crossmatch 03/26/18 03/26/18 03/26/18 14:57 15:35 18:12 WBC RBC Hgb Hct MCV MCH MCHC RDW Plt Count Lymph % (Auto) [place] % (Auto) Lymph # [place] # Seg Neutrophils % Seg Neuts % (Manual) Lymphocytes % (Manual) Monocytes % (Manual) Eosinophils % (Manual) Seg Neutrophils # Lymphocytes # (Manual) Monocytes # (Manual) POC ABG pH POC ABG pCO2 POC ABG pO2 VBG pH Sodium 148 H Potassium Chloride 117.5 H Carbon Dioxide 18 L BUN 43 H Creatinine 2.5 H Glucose 135 H POC Glucose 159 H 245 H Hemoglobin A1c Lactic Acid Calcium 7.3 L Phosphorus TIBC Transferrin Ferritin AST Total Creatine Kinase Troponin T NT-Pro-B Natriuret Pep Serum Total Protein Total Protein Albumin PEP Interpretation Triglycerides Cholesterol LDL Cholesterol Direct Urine Creatinine Urine Microalbumin Urine Chloride Urine Total Protein [place] Screen [place]A Titer Miscellaneous Test Crossmatch 03/26/18 03/26/18 03/27/18 19:27 21:42 02:03 WBC RBC Hgb Hct MCV MCH MCHC RDW Plt Count Lymph % (Auto) [place] % (Auto) Lymph # [place] # Seg Neutrophils % Seg Neuts % (Manual) Lymphocytes % (Manual) Monocytes % (Manual) Eosinophils % (Manual) Seg Neutrophils # Lymphocytes # (Manual) Monocytes # (Manual) POC ABG pH POC ABG pCO2 POC ABG pO2 VBG pH Sodium Potassium Chloride 115.0 H Carbon Dioxide 20 L BUN 42 H Creatinine 2.4 H Glucose 221 H POC Glucose 261 H 254 H Hemoglobin A1c Lactic Acid Calcium 7.1 L Phosphorus TIBC Transferrin Ferritin AST Total Creatine Kinase Troponin T NT-Pro-B Natriuret Pep Serum Total Protein Total Protein Albumin PEP Interpretation Triglycerides Cholesterol LDL Cholesterol Direct Urine Creatinine Urine Microalbumin Urine Chloride Urine Total Protein [place] Screen [place]A Titer Miscellaneous Test Crossmatch 03/27/18 03/27/18 03/27/18 03:35 03:35 05:20 WBC 12.3 H RBC 3.05 L Hgb 8.3 L Hct 25.3 L D MCV 83 L MCH 27 L MCHC RDW Plt Count Lymph % (Auto) [place] % (Auto) 8.6 H Lymph # [place] # 1.1 H Seg Neutrophils % 76.5 H Seg Neuts % (Manual) Lymphocytes % (Manual) Monocytes % (Manual) Eosinophils % (Manual) Seg Neutrophils # 9.4 H Lymphocytes # (Manual) Monocytes # (Manual) POC ABG pH POC ABG pCO2 POC ABG pO2 VBG pH Sodium Potassium Chloride 112.6 H Carbon Dioxide BUN 36 H Creatinine 2.1 H Glucose 244 H POC Glucose 263 H Hemoglobin A1c Lactic Acid Calcium 7.1 L Phosphorus TIBC Transferrin Ferritin AST 44 H Total Creatine Kinase Troponin T NT-Pro-B Natriuret Pep Serum Total Protein Total Protein 5.1 L D Albumin 2.1 L PEP Interpretation Triglycerides Cholesterol LDL Cholesterol Direct Urine Creatinine Urine Microalbumin Urine Chloride Urine Total Protein [place]A Screen AZALEA Titer Miscellaneous Test Crossmatch 03/27/18 03/27/18 03/27/18 08:22 13:00 14:06 WBC RBC Hgb Hct MCV MCH MCHC RDW Plt Count Lymph % (Auto) [place] % (Auto) Lymph # [place] # Seg Neutrophils % Seg Neuts % (Manual) Lymphocytes % (Manual) Monocytes % (Manual) Eosinophils % (Manual) Seg Neutrophils # Lymphocytes # (Manual) Monocytes # (Manual) POC ABG pH POC ABG pCO2 34.7 L POC ABG pO2 VBG pH Sodium Potassium Chloride Carbon Dioxide BUN Creatinine Glucose POC Glucose 306 H 233 H Hemoglobin A1c Lactic Acid Calcium Phosphorus TIBC Transferrin Ferritin AST Total Creatine Kinase Troponin T NT-Pro-B Natriuret Pep Serum Total Protein Total Protein Albumin PEP Interpretation Triglycerides Cholesterol LDL Cholesterol Direct Urine Creatinine Urine Microalbumin Urine Chloride Urine Total Protein [place] Screen [place]A Titer Miscellaneous Test Crossmatch 03/27/18 03/27/18 03/27/18 16:15 18:11 21:44 WBC RBC Hgb Hct MCV MCH MCHC RDW Plt Count Lymph % (Auto) [place] % (Auto) Lymph # [place] # Seg Neutrophils % Seg Neuts % (Manual) Lymphocytes % (Manual) Monocytes % (Manual) Eosinophils % (Manual) Seg Neutrophils # Lymphocytes # (Manual) Monocytes # (Manual) POC ABG pH POC ABG pCO2 POC ABG pO2 VBG pH Sodium Potassium Chloride Carbon Dioxide BUN Creatinine Glucose POC Glucose 243 H 226 H 224 H Hemoglobin A1c Lactic Acid Calcium Phosphorus TIBC Transferrin Ferritin AST Total Creatine Kinase Troponin T NT-Pro-B Natriuret Pep Serum Total Protein Total Protein Albumin PEP Interpretation Triglycerides Cholesterol LDL Cholesterol Direct Urine Creatinine Urine Microalbumin Urine Chloride Urine Total Protein [place] Screen [place]A Titer Miscellaneous Test Crossmatch 03/28/18 03/28/18 03/28/18 02:07 04:35 04:35 WBC RBC Hgb Hct MCV MCH MCHC RDW Plt Count Lymph % (Auto) [place] % (Auto) Lymph # [place] # Seg Neutrophils % Seg Neuts % (Manual) Lymphocytes % (Manual) Monocytes % (Manual) Eosinophils % (Manual) Seg Neutrophils # Lymphocytes # (Manual) Monocytes # (Manual) POC ABG pH POC ABG pCO2 POC ABG pO2 VBG pH Sodium Potassium Chloride Carbon Dioxide BUN Creatinine Glucose POC Glucose 220 H Hemoglobin A1c Lactic Acid Calcium Phosphorus TIBC 115 L Transferrin 94 L Ferritin 412.1 H AST Total Creatine Kinase Troponin T NT-Pro-B Natriuret Pep Serum Total Protein Total Protein Albumin PEP Interpretation Triglycerides Cholesterol LDL Cholesterol Direct Urine Creatinine Urine Microalbumin Urine Chloride Urine Total Protein [place] Screen [place]A Titer Miscellaneous Test Crossmatch 03/28/18 03/28/18 03/28/18 05:27 09:52 10:59 WBC RBC 3.22 L Hgb 9.1 L Hct 26.8 L MCV 83 L MCH MCHC RDW Plt Count 134 L Lymph % (Auto) [place] % (Auto) Lymph # [place] # Seg Neutrophils % Seg Neuts % (Manual) Lymphocytes % (Manual) Monocytes % (Manual) Eosinophils % (Manual) Seg Neutrophils # Lymphocytes # (Manual) Monocytes # (Manual) POC ABG pH POC ABG pCO2 POC ABG pO2 VBG pH Sodium Potassium Chloride Carbon Dioxide BUN Creatinine Glucose POC Glucose 280 H 332 H Hemoglobin A1c Lactic Acid Calcium Phosphorus TIBC Transferrin Ferritin AST Total Creatine Kinase Troponin T NT-Pro-B Natriuret Pep Serum Total Protein Total Protein Albumin PEP Interpretation Triglycerides Cholesterol LDL Cholesterol Direct Urine Creatinine Urine Microalbumin Urine Chloride Urine Total Protein [place] Screen [place] Titer Miscellaneous Test Crossmatch 03/28/18 03/28/18 03/28/18 10:59 14:39 17:47 WBC RBC Hgb Hct MCV MCH MCHC RDW Plt Count Lymph % (Auto) [place] % (Auto) Lymph # [place] # Seg Neutrophils % Seg Neuts % (Manual) Lymphocytes % (Manual) Monocytes % (Manual) Eosinophils % (Manual) Seg Neutrophils # Lymphocytes # (Manual) Monocytes # (Manual) POC ABG pH POC ABG pCO2 POC ABG pO2 VBG pH Sodium 136 L Potassium Chloride Carbon Dioxide BUN 29 H Creatinine Glucose 310 H POC Glucose 250 H 132 H Hemoglobin A1c Lactic Acid Calcium 7.0 L Phosphorus TIBC Transferrin Ferritin AST Total Creatine Kinase Troponin T NT-Pro-B Natriuret Pep Serum Total Protein Total Protein Albumin PEP Interpretation Triglycerides Cholesterol LDL Cholesterol Direct Urine Creatinine Urine Microalbumin Urine Chloride Urine Total Protein [place] Screen [place] Titer Miscellaneous Test Crossmatch 03/29/18 03/29/18 03/29/18 01:49 04:23 05:45 WBC RBC 3.13 L Hgb 8.8 L Hct 25.8 L MCV 82 L MCH MCHC RDW 12.7 L Plt Count 132 L Lymph % (Auto) 10.8 L [place] % (Auto) 9.1 H Lymph # 1.0 L [place] # Seg Neutrophils % 79.1 H Seg Neuts % (Manual) Lymphocytes % (Manual) Monocytes % (Manual) Eosinophils % (Manual) Seg Neutrophils # Lymphocytes # (Manual) Monocytes # (Manual) POC ABG pH POC ABG pCO2 POC ABG pO2 VBG pH Sodium 134 L Potassium Chloride Carbon Dioxide BUN 27 H Creatinine Glucose 172 H POC Glucose 122 H Hemoglobin A1c Lactic Acid Calcium 7.1 L Phosphorus TIBC Transferrin Ferritin AST Total Creatine Kinase Troponin T NT-Pro-B Natriuret Pep Serum Total Protein Total Protein Albumin PEP Interpretation Triglycerides Cholesterol LDL Cholesterol Direct Urine Creatinine Urine Microalbumin Urine Chloride Urine Total Protein [place] Screen [place]A Titer Miscellaneous Test Crossmatch 03/29/18 03/29/18 03/29/18 05:57 09:19 13:09 WBC RBC Hgb Hct MCV MCH MCHC RDW Plt Count Lymph % (Auto) [place] % (Auto) Lymph # [place] # Seg Neutrophils % Seg Neuts % (Manual) Lymphocytes % (Manual) Monocytes % (Manual) Eosinophils % (Manual) Seg Neutrophils # Lymphocytes # (Manual) Monocytes # (Manual) POC ABG pH POC ABG pCO2 POC ABG pO2 VBG pH Sodium Potassium Chloride Carbon Dioxide BUN Creatinine Glucose POC Glucose 224 H 316 H 345 H Hemoglobin A1c Lactic Acid Calcium Phosphorus TIBC Transferrin Ferritin AST Total Creatine Kinase Troponin T NT-Pro-B Natriuret Pep Serum Total Protein Total Protein Albumin PEP Interpretation Triglycerides Cholesterol LDL Cholesterol Direct Urine Creatinine Urine Microalbumin Urine Chloride Urine Total Protein [place] Screen [place]A Titer Miscellaneous Test Crossmatch 03/29/18 03/29/18 03/29/18 16:27 22:26 22:36 WBC RBC Hgb Hct MCV MCH MCHC RDW Plt Count Lymph % (Auto) [place] % (Auto) Lymph # [place] # Seg Neutrophils % Seg Neuts % (Manual) Lymphocytes % (Manual) Monocytes % (Manual) Eosinophils % (Manual) Seg Neutrophils # Lymphocytes # (Manual) Monocytes # (Manual) POC ABG pH POC ABG pCO2 POC ABG pO2 VBG pH Sodium Potassium Chloride Carbon Dioxide BUN Creatinine Glucose POC Glucose 210 H < 40 L 172 H Hemoglobin A1c Lactic Acid Calcium Phosphorus TIBC Transferrin Ferritin AST Total Creatine Kinase Troponin T NT-Pro-B Natriuret Pep Serum Total Protein Total Protein Albumin PEP Interpretation Triglycerides Cholesterol LDL Cholesterol Direct Urine Creatinine Urine Microalbumin Urine Chloride Urine Total Protein [place]A Screen [place]A Titer Miscellaneous Test Crossmatch 03/30/18 03/30/18 03/30/18 00:07 05:12 06:39 WBC RBC 2.95 L Hgb 8.3 L Hct 24.6 L MCV 83 L MCH MCHC RDW 12.9 L Plt Count Lymph % (Auto) [place] % (Auto) 13.5 H Lymph # [place] # 0.9 H Seg Neutrophils % Seg Neuts % (Manual) Lymphocytes % (Manual) Monocytes % (Manual) Eosinophils % (Manual) Seg Neutrophils # Lymphocytes # (Manual) Monocytes # (Manual) POC ABG pH POC ABG pCO2 POC ABG pO2 VBG pH Sodium Potassium Chloride Carbon Dioxide BUN Creatinine Glucose POC Glucose 69 L 213 H Hemoglobin A1c Lactic Acid Calcium Phosphorus TIBC Transferrin Ferritin AST Total Creatine Kinase Troponin T NT-Pro-B Natriuret Pep Serum Total Protein Total Protein Albumin PEP Interpretation Triglycerides Cholesterol LDL Cholesterol Direct Urine Creatinine Urine Microalbumin Urine Chloride Urine Total Protein [place]A Screen [place]A Titer Miscellaneous Test Crossmatch 03/30/18 03/30/18 03/30/18 06:39 10:06 13:59 WBC RBC Hgb Hct MCV MCH MCHC RDW Plt Count Lymph % (Auto) [place] % (Auto) Lymph # [place] # Seg Neutrophils % Seg Neuts % (Manual) Lymphocytes % (Manual) Monocytes % (Manual) Eosinophils % (Manual) Seg Neutrophils # Lymphocytes # (Manual) Monocytes # (Manual) POC ABG pH POC ABG pCO2 POC ABG pO2 VBG pH Sodium 133 L Potassium 3.5 L D Chloride 95.6 L Carbon Dioxide BUN 34 H Creatinine Glucose 241 H POC Glucose 368 H 237 H Hemoglobin A1c Lactic Acid Calcium 7.3 L Phosphorus TIBC Transferrin Ferritin AST Total Creatine Kinase Troponin T NT-Pro-B Natriuret Pep Serum Total Protein Total Protein Albumin PEP Interpretation Triglycerides Cholesterol LDL Cholesterol Direct Urine Creatinine Urine Microalbumin Urine Chloride Urine Total Protein AZALEA Screen [place]A Titer Miscellaneous Test Crossmatch 03/30/18 03/30/18 03/30/18 16:39 20:47 21:30 WBC RBC Hgb Hct MCV MCH MCHC RDW Plt Count Lymph % (Auto) [place] % (Auto) Lymph # [place] # Seg Neutrophils % Seg Neuts % (Manual) Lymphocytes % (Manual) Monocytes % (Manual) Eosinophils % (Manual) Seg Neutrophils # Lymphocytes # (Manual) Monocytes # (Manual) POC ABG pH POC ABG pCO2 POC ABG pO2 VBG pH Sodium Potassium Chloride Carbon Dioxide BUN Creatinine Glucose POC Glucose 176 H 60 L 113 H Hemoglobin A1c Lactic Acid Calcium Phosphorus TIBC Transferrin Ferritin AST Total Creatine Kinase Troponin T NT-Pro-B Natriuret Pep Serum Total Protein Total Protein Albumin PEP Interpretation Triglycerides Cholesterol LDL Cholesterol Direct Urine Creatinine Urine Microalbumin Urine Chloride Urine Total Protein AZALEA Screen AZALEA Titer Miscellaneous Test Crossmatch 03/31/18 03/31/18 03/31/18 02:07 06:45 07:24 WBC RBC 3.06 L Hgb 8.6 L Hct 25.3 L MCV 83 L MCH MCHC RDW 12.7 L Plt Count Lymph % (Auto) [place] % (Auto) Lymph # [place] # Seg Neutrophils % Seg Neuts % (Manual) 73.0 H Lymphocytes % (Manual) 6.0 L Monocytes % (Manual) 21.0 H Eosinophils % (Manual) Seg Neutrophils # Lymphocytes # (Manual) 0.4 L Monocytes # (Manual) 1.4 H POC ABG pH POC ABG pCO2 POC ABG pO2 VBG pH Sodium Potassium Chloride Carbon Dioxide BUN Creatinine Glucose POC Glucose 140 H 260 H Hemoglobin A1c Lactic Acid Calcium Phosphorus TIBC Transferrin Ferritin AST Total Creatine Kinase Troponin T NT-Pro-B Natriuret Pep Serum Total Protein Total Protein Albumin PEP Interpretation Triglycerides Cholesterol LDL Cholesterol Direct Urine Creatinine Urine Microalbumin Urine Chloride Urine Total Protein [place]A Screen [place]A Titer Miscellaneous Test Crossmatch 03/31/18 03/31/18 03/31/18 07:24 11:51 13:08 WBC RBC Hgb Hct MCV MCH MCHC RDW Plt Count Lymph % (Auto) [place] % (Auto) Lymph # [place] # Seg Neutrophils % Seg Neuts % (Manual) Lymphocytes % (Manual) Monocytes % (Manual) Eosinophils % (Manual) Seg Neutrophils # Lymphocytes # (Manual) Monocytes # (Manual) POC ABG pH POC ABG pCO2 POC ABG pO2 VBG pH Sodium 134 L Potassium Chloride Carbon Dioxide BUN 36 H Creatinine 1.8 H Glucose 271 H POC Glucose > 500 H > 500 H Hemoglobin A1c Lactic Acid Calcium 7.3 L Phosphorus TIBC Transferrin Ferritin AST Total Creatine Kinase Troponin T NT-Pro-B Natriuret Pep Serum Total Protein Total Protein Albumin PEP Interpretation Triglycerides Cholesterol LDL Cholesterol Direct Urine Creatinine Urine Microalbumin Urine Chloride Urine Total Protein [place] Screen [place]A Titer Miscellaneous Test Crossmatch 03/31/18 03/31/18 03/31/18 14:00 16:15 16:29 WBC RBC Hgb Hct MCV MCH MCHC RDW Plt Count Lymph % (Auto) [place] % (Auto) Lymph # [place] # Seg Neutrophils % Seg Neuts % (Manual) Lymphocytes % (Manual) Monocytes % (Manual) Eosinophils % (Manual) Seg Neutrophils # Lymphocytes # (Manual) Monocytes # (Manual) POC ABG pH POC ABG pCO2 POC ABG pO2 VBG pH Sodium Potassium Chloride Carbon Dioxide BUN Creatinine Glucose POC Glucose > 500 H 405 H 424 H Hemoglobin A1c Lactic Acid Calcium Phosphorus TIBC Transferrin Ferritin AST Total Creatine Kinase Troponin T NT-Pro-B Natriuret Pep Serum Total Protein Total Protein Albumin PEP Interpretation Triglycerides Cholesterol LDL Cholesterol Direct Urine Creatinine Urine Microalbumin Urine Chloride Urine Total Protein [place] Screen [place]A Titer Miscellaneous Test Crossmatch 03/31/18 04/01/18 04/01/18 21:14 00:21 05:51 WBC RBC 2.55 L Hgb 7.1 L Hct 21.2 L MCV 83 L MCH MCHC RDW 12.5 L Plt Count Lymph % (Auto) [place] % (Auto) Lymph # [place] # Seg Neutrophils % Seg Neuts % (Manual) Lymphocytes % (Manual) Monocytes % (Manual) 22.0 H Eosinophils % (Manual) Seg Neutrophils # Lymphocytes # (Manual) Monocytes # (Manual) 1.1 H POC ABG pH POC ABG pCO2 POC ABG pO2 VBG pH Sodium Potassium Chloride Carbon Dioxide BUN Creatinine Glucose POC Glucose 393 H 384 H Hemoglobin A1c Lactic Acid Calcium Phosphorus TIBC Transferrin Ferritin AST Total Creatine Kinase Troponin T NT-Pro-B Natriuret Pep Serum Total Protein Total Protein Albumin PEP Interpretation Triglycerides Cholesterol LDL Cholesterol Direct Urine Creatinine Urine Microalbumin Urine Chloride Urine Total Protein [place] Screen [place] Titer Miscellaneous Test Crossmatch 04/01/18 04/01/18 04/01/18 05:51 06:52 11:13 WBC RBC Hgb Hct MCV MCH MCHC RDW Plt Count Lymph % (Auto) [place] % (Auto) Lymph # [place] # Seg Neutrophils % Seg Neuts % (Manual) Lymphocytes % (Manual) Monocytes % (Manual) Eosinophils % (Manual) Seg Neutrophils # Lymphocytes # (Manual) Monocytes # (Manual) POC ABG pH POC ABG pCO2 POC ABG pO2 VBG pH Sodium Potassium Chloride Carbon Dioxide BUN 35 H Creatinine Glucose 120 H POC Glucose 114 H Hemoglobin A1c Lactic Acid Calcium 7.3 L Phosphorus TIBC Transferrin Ferritin AST Total Creatine Kinase Troponin T NT-Pro-B Natriuret Pep Serum Total Protein Total Protein Albumin PEP Interpretation Triglycerides Cholesterol LDL Cholesterol Direct Urine Creatinine Urine Microalbumin Urine Chloride Urine Total Protein [place] Screen [place] Titer Miscellaneous Test Crossmatch See Detail 04/01/18 04/01/18 04/01/18 11:16 12:06 16:04 WBC RBC Hgb 7.3 L Hct 21.5 L MCV MCH MCHC RDW Plt Count Lymph % (Auto) [place] % (Auto) Lymph # [place] # Seg Neutrophils % Seg Neuts % (Manual) Lymphocytes % (Manual) Monocytes % (Manual) Eosinophils % (Manual) Seg Neutrophils # Lymphocytes # (Manual) Monocytes # (Manual) POC ABG pH POC ABG pCO2 POC ABG pO2 VBG pH Sodium Potassium Chloride Carbon Dioxide BUN Creatinine Glucose POC Glucose 223 H 225 H Hemoglobin A1c Lactic Acid Calcium Phosphorus TIBC Transferrin Ferritin AST Total Creatine Kinase Troponin T NT-Pro-B Natriuret Pep Serum Total Protein Total Protein Albumin PEP Interpretation Triglycerides Cholesterol LDL Cholesterol Direct Urine Creatinine Urine Microalbumin Urine Chloride Urine Total Protein [place] Screen [place] Titer Miscellaneous Test Crossmatch 04/01/18 04/01/18 04/01/18 16:46 19:47 21:15 WBC RBC Hgb 7.7 L Hct 23.5 L MCV MCH MCHC RDW Plt Count Lymph % (Auto) [place] % (Auto) Lymph # [place] # Seg Neutrophils % Seg Neuts % (Manual) Lymphocytes % (Manual) Monocytes % (Manual) Eosinophils % (Manual) Seg Neutrophils # Lymphocytes # (Manual) Monocytes # (Manual) POC ABG pH POC ABG pCO2 POC ABG pO2 VBG pH Sodium Potassium Chloride Carbon Dioxide BUN Creatinine Glucose POC Glucose 219 H 380 H Hemoglobin A1c Lactic Acid Calcium Phosphorus TIBC Transferrin Ferritin AST Total Creatine Kinase Troponin T NT-Pro-B Natriuret Pep Serum Total Protein Total Protein Albumin PEP Interpretation Triglycerides Cholesterol LDL Cholesterol Direct Urine Creatinine Urine Microalbumin Urine Chloride Urine Total Protein [place] Screen [place] Titer Miscellaneous Test Crossmatch 04/02/18 04/02/18 04/02/18 05:47 06:57 07:52 WBC RBC 2.80 L Hgb 7.7 L Hct 23.5 L MCV MCH MCHC RDW Plt Count Lymph % (Auto) [place] % (Auto) Lymph # [place] # Seg Neutrophils % Seg Neuts % (Manual) Lymphocytes % (Manual) Monocytes % (Manual) 25.0 H Eosinophils % (Manual) Seg Neutrophils # Lymphocytes # (Manual) 1.1 L Monocytes # (Manual) 1.3 H POC ABG pH POC ABG pCO2 POC ABG pO2 VBG pH Sodium Potassium Chloride Carbon Dioxide BUN Creatinine Glucose POC Glucose 49 L 111 H Hemoglobin A1c Lactic Acid Calcium Phosphorus TIBC Transferrin Ferritin AST Total Creatine Kinase Troponin T NT-Pro-B Natriuret Pep Serum Total Protein Total Protein Albumin PEP Interpretation Triglycerides Cholesterol LDL Cholesterol Direct Urine Creatinine Urine Microalbumin Urine Chloride Urine Total Protein [place] Screen [place] Titer Miscellaneous Test Crossmatch 04/02/18 04/02/18 04/02/18 07:52 12:36 16:36 WBC RBC Hgb Hct MCV MCH MCHC RDW Plt Count Lymph % (Auto) [place] % (Auto) Lymph # [place] # Seg Neutrophils % Seg Neuts % (Manual) Lymphocytes % (Manual) Monocytes % (Manual) Eosinophils % (Manual) Seg Neutrophils # Lymphocytes # (Manual) Monocytes # (Manual) POC ABG pH POC ABG pCO2 POC ABG pO2 VBG pH Sodium Potassium Chloride Carbon Dioxide BUN 28 H Creatinine Glucose 115 H POC Glucose 259 H 297 H Hemoglobin A1c Lactic Acid Calcium 7.3 L Phosphorus TIBC Transferrin Ferritin AST Total Creatine Kinase Troponin T NT-Pro-B Natriuret Pep Serum Total Protein Total Protein Albumin PEP Interpretation Triglycerides Cholesterol LDL Cholesterol Direct Urine Creatinine Urine Microalbumin Urine Chloride Urine Total Protein [place] Screen [place] Titer Miscellaneous Test Crossmatch 04/02/18 04/03/18 04/03/18 22:01 04:20 04:46 WBC RBC Hgb Hct MCV MCH MCHC RDW Plt Count Lymph % (Auto) [place] % (Auto) Lymph # [place] # Seg Neutrophils % Seg Neuts % (Manual) Lymphocytes % (Manual) Monocytes % (Manual) Eosinophils % (Manual) Seg Neutrophils # Lymphocytes # (Manual) Monocytes # (Manual) POC ABG pH POC ABG pCO2 POC ABG pO2 VBG pH Sodium Potassium Chloride Carbon Dioxide BUN Creatinine Glucose POC Glucose 206 H < 40 L 64 L Hemoglobin A1c Lactic Acid Calcium Phosphorus TIBC Transferrin Ferritin AST Total Creatine Kinase Troponin T NT-Pro-B Natriuret Pep Serum Total Protein Total Protein Albumin PEP Interpretation Triglycerides Cholesterol LDL Cholesterol Direct Urine Creatinine Urine Microalbumin Urine Chloride Urine Total Protein [place] Screen [place] Titer Miscellaneous Test Crossmatch 04/03/18 04/03/18 04/03/18 05:46 05:46 05:57 WBC RBC 2.72 L Hgb 7.6 L Hct 22.4 L MCV 83 L MCH MCHC RDW Plt Count Lymph % (Auto) [place] % (Auto) Lymph # [place] # Seg Neutrophils % Seg Neuts % (Manual) Lymphocytes % (Manual) 13.0 L Monocytes % (Manual) 19.0 H Eosinophils % (Manual) Seg Neutrophils # Lymphocytes # (Manual) 0.9 L Monocytes # (Manual) 1.3 H POC ABG pH POC ABG pCO2 POC ABG pO2 VBG pH Sodium Potassium Chloride 110.7 H Carbon Dioxide BUN 24 H Creatinine Glucose 45 L POC Glucose < 40 L Hemoglobin A1c Lactic Acid Calcium 7.3 L Phosphorus TIBC Transferrin Ferritin AST Total Creatine Kinase Troponin T NT-Pro-B Natriuret Pep Serum Total Protein Total Protein Albumin PEP Interpretation Triglycerides Cholesterol LDL Cholesterol Direct Urine Creatinine Urine Microalbumin Urine Chloride Urine Total Protein [place] Screen [place] Titer Miscellaneous Test Crossmatch 04/03/18 04/03/18 04/03/18 07:04 09:17 11:34 WBC RBC Hgb Hct MCV MCH MCHC RDW Plt Count Lymph % (Auto) [place] % (Auto) Lymph # [place] # Seg Neutrophils % Seg Neuts % (Manual) Lymphocytes % (Manual) Monocytes % (Manual) Eosinophils % (Manual) Seg Neutrophils # Lymphocytes # (Manual) Monocytes # (Manual) POC ABG pH POC ABG pCO2 POC ABG pO2 VBG pH Sodium Potassium Chloride Carbon Dioxide BUN Creatinine Glucose POC Glucose 44 L 107 H 196 H Hemoglobin A1c Lactic Acid Calcium Phosphorus TIBC Transferrin Ferritin AST Total Creatine Kinase Troponin T NT-Pro-B Natriuret Pep Serum Total Protein Total Protein Albumin PEP Interpretation Triglycerides Cholesterol LDL Cholesterol Direct Urine Creatinine Urine Microalbumin Urine Chloride Urine Total Protein [place] Screen [place] Titer Miscellaneous Test Crossmatch 04/03/18 04/03/18 04/04/18 16:48 20:25 06:05 WBC RBC 2.49 L Hgb 6.9 L Hct 20.8 L MCV 83 L MCH MCHC RDW Plt Count Lymph % (Auto) [place] % (Auto) Lymph # [place] # Seg Neutrophils % Seg Neuts % (Manual) Lymphocytes % (Manual) Monocytes % (Manual) 23.0 H Eosinophils % (Manual) Seg Neutrophils # Lymphocytes # (Manual) 0.7 L Monocytes # (Manual) 1.2 H POC ABG pH POC ABG pCO2 POC ABG pO2 VBG pH Sodium Potassium Chloride Carbon Dioxide BUN Creatinine Glucose POC Glucose 251 H 211 H Hemoglobin A1c Lactic Acid Calcium Phosphorus TIBC Transferrin Ferritin AST Total Creatine Kinase Troponin T NT-Pro-B Natriuret Pep Serum Total Protein Total Protein Albumin PEP Interpretation Triglycerides Cholesterol LDL Cholesterol Direct Urine Creatinine Urine Microalbumin Urine Chloride Urine Total Protein [place] Screen [place] Titer Miscellaneous Test Crossmatch 04/04/18 04/04/18 04/04/18 06:05 06:06 20:14 WBC RBC Hgb Hct MCV MCH MCHC RDW Plt Count Lymph % (Auto) [place] % (Auto) Lymph # [place] # Seg Neutrophils % Seg Neuts % (Manual) Lymphocytes % (Manual) Monocytes % (Manual) Eosinophils % (Manual) Seg Neutrophils # Lymphocytes # (Manual) Monocytes # (Manual) POC ABG pH POC ABG pCO2 POC ABG pO2 VBG pH Sodium Potassium Chloride 109.8 H Carbon Dioxide BUN 22 H Creatinine 1.7 H Glucose 260 H POC Glucose 312 H Hemoglobin A1c Lactic Acid Calcium 7.2 L Phosphorus TIBC Transferrin Ferritin AST Total Creatine Kinase Troponin T NT-Pro-B Natriuret Pep Serum Total Protein Total Protein Albumin PEP Interpretation Triglycerides Cholesterol LDL Cholesterol Direct Urine Creatinine Urine Microalbumin Urine Chloride Urine Total Protein [place] Screen [place] Titer Miscellaneous Test Crossmatch See Detail 04/04/18 04/05/18 04/05/18 22:23 06:10 06:10 WBC RBC 2.97 L Hgb 8.6 L Hct 25.0 L MCV MCH MCHC RDW Plt Count Lymph % (Auto) [place] % (Auto) 15.9 H Lymph # [place] # 1.2 H Seg Neutrophils % Seg Neuts % (Manual) Lymphocytes % (Manual) Monocytes % (Manual) Eosinophils % (Manual) Seg Neutrophils # Lymphocytes # (Manual) Monocytes # (Manual) POC ABG pH POC ABG pCO2 POC ABG pO2 VBG pH Sodium Potassium Chloride 108.4 H Carbon Dioxide 20 L BUN Creatinine 1.9 H Glucose 42 L POC Glucose 116 H Hemoglobin A1c Lactic Acid Calcium 7.3 L Phosphorus TIBC Transferrin Ferritin AST Total Creatine Kinase Troponin T NT-Pro-B Natriuret Pep Serum Total Protein Total Protein 5.7 L Albumin 2.3 L PEP Interpretation Triglycerides Cholesterol LDL Cholesterol Direct Urine Creatinine Urine Microalbumin Urine Chloride Urine Total Protein [place] Screen [place] Titer Miscellaneous Test Crossmatch 04/05/18 04/05/18 04/05/18 06:18 06:20 12:17 WBC RBC Hgb Hct MCV MCH MCHC RDW Plt Count Lymph % (Auto) [place] % (Auto) Lymph # [place] # Seg Neutrophils % Seg Neuts % (Manual) Lymphocytes % (Manual) Monocytes % (Manual) Eosinophils % (Manual) Seg Neutrophils # Lymphocytes # (Manual) Monocytes # (Manual) POC ABG pH POC ABG pCO2 POC ABG pO2 VBG pH Sodium Potassium Chloride Carbon Dioxide BUN Creatinine Glucose POC Glucose 44 L 123 H Hemoglobin A1c Lactic Acid Calcium Phosphorus TIBC Transferrin Ferritin AST Total Creatine Kinase Troponin T NT-Pro-B Natriuret Pep Serum Total Protein Total Protein Albumin PEP Interpretation Triglycerides Cholesterol LDL Cholesterol Direct Urine Creatinine 112.0 H Urine Microalbumin Urine Chloride Urine Total Protein [place] Screen [place] Titer Miscellaneous Test Crossmatch 04/05/18 04/05/18 04/06/18 16:33 21:29 07:06 WBC RBC Hgb Hct MCV MCH MCHC RDW Plt Count Lymph % (Auto) [place] % (Auto) Lymph # [place] # Seg Neutrophils % Seg Neuts % (Manual) Lymphocytes % (Manual) Monocytes % (Manual) Eosinophils % (Manual) Seg Neutrophils # Lymphocytes # (Manual) Monocytes # (Manual) POC ABG pH POC ABG pCO2 POC ABG pO2 VBG pH Sodium Potassium Chloride Carbon Dioxide BUN Creatinine Glucose POC Glucose 268 H 207 H 42 L Hemoglobin A1c Lactic Acid Calcium Phosphorus TIBC Transferrin Ferritin AST Total Creatine Kinase Troponin T NT-Pro-B Natriuret Pep Serum Total Protein Total Protein Albumin PEP Interpretation Triglycerides Cholesterol LDL Cholesterol Direct Urine Creatinine Urine Microalbumin Urine Chloride Urine Total Protein [place] Screen [place] Titer Miscellaneous Test Crossmatch 04/06/18 04/06/18 04/06/18 11:54 16:40 21:14 WBC RBC Hgb Hct MCV MCH MCHC RDW Plt Count Lymph % (Auto) [place] % (Auto) Lymph # [place] # Seg Neutrophils % Seg Neuts % (Manual) Lymphocytes % (Manual) Monocytes % (Manual) Eosinophils % (Manual) Seg Neutrophils # Lymphocytes # (Manual) Monocytes # (Manual) POC ABG pH POC ABG pCO2 POC ABG pO2 VBG pH Sodium Potassium Chloride Carbon Dioxide BUN Creatinine Glucose POC Glucose 177 H 188 H 336 H Hemoglobin A1c Lactic Acid Calcium Phosphorus TIBC Transferrin Ferritin AST Total Creatine Kinase Troponin T NT-Pro-B Natriuret Pep Serum Total Protein Total Protein Albumin PEP Interpretation Triglycerides Cholesterol LDL Cholesterol Direct Urine Creatinine Urine Microalbumin Urine Chloride Urine Total Protein [place] Screen [place] Titer Miscellaneous Test Crossmatch 04/07/18 04/07/18 04/07/18 05:46 05:46 05:46 WBC RBC 2.92 L Hgb 8.2 L Hct 25.0 L MCV MCH MCHC RDW Plt Count Lymph % (Auto) [place] % (Auto) 12.9 H Lymph # 1.1 L [place] # Seg Neutrophils % Seg Neuts % (Manual) Lymphocytes % (Manual) Monocytes % (Manual) Eosinophils % (Manual) Seg Neutrophils # Lymphocytes # (Manual) Monocytes # (Manual) POC ABG pH POC ABG pCO2 POC ABG pO2 VBG pH Sodium 131 L D Potassium Chloride 96.6 L Carbon Dioxide 19 L BUN 26 H Creatinine 2.7 H Glucose 247 H POC Glucose Hemoglobin A1c Lactic Acid Calcium 7.7 L Phosphorus TIBC Transferrin Ferritin AST Total Creatine Kinase Troponin T NT-Pro-B Natriuret Pep 1858 H Serum Total Protein Total Protein Albumin PEP Interpretation Triglycerides Cholesterol LDL Cholesterol Direct Urine Creatinine Urine Microalbumin Urine Chloride Urine Total Protein [place] Screen [place] Titer Miscellaneous Test Crossmatch 04/07/18 04/07/18 04/07/18 06:00 11:31 14:00 WBC RBC Hgb Hct MCV MCH MCHC RDW Plt Count Lymph % (Auto) [place] % (Auto) Lymph # [place] # Seg Neutrophils % Seg Neuts % (Manual) Lymphocytes % (Manual) Monocytes % (Manual) Eosinophils % (Manual) Seg Neutrophils # Lymphocytes # (Manual) Monocytes # (Manual) POC ABG pH POC ABG pCO2 POC ABG pO2 VBG pH Sodium Potassium Chloride Carbon Dioxide BUN Creatinine Glucose POC Glucose 288 H 373 H Hemoglobin A1c Lactic Acid Calcium Phosphorus TIBC Transferrin Ferritin AST Total Creatine Kinase Troponin T NT-Pro-B Natriuret Pep Serum Total Protein Total Protein Albumin PEP Interpretation Triglycerides Cholesterol LDL Cholesterol Direct Urine Creatinine 76.8 H Urine Microalbumin Urine Chloride 91.4 L Urine Total Protein [facility] Screen [place] Titer Miscellaneous Test Crossmatch 04/07/18 04/07/18 04/07/18 16:12 18:32 22:00 WBC RBC Hgb Hct MCV MCH MCHC RDW Plt Count Lymph % (Auto) [place] % (Auto) Lymph # [place] # Seg Neutrophils % Seg Neuts % (Manual) Lymphocytes % (Manual) Monocytes % (Manual) Eosinophils % (Manual) Seg Neutrophils # Lymphocytes # (Manual) Monocytes # (Manual) POC ABG pH POC ABG pCO2 POC ABG pO2 VBG pH Sodium Potassium Chloride Carbon Dioxide BUN Creatinine Glucose POC Glucose 280 H 269 H 145 H Hemoglobin A1c Lactic Acid Calcium Phosphorus TIBC Transferrin Ferritin AST Total Creatine Kinase Troponin T NT-Pro-B Natriuret Pep Serum Total Protein Total Protein Albumin PEP Interpretation Triglycerides Cholesterol LDL Cholesterol Direct Urine Creatinine Urine Microalbumin Urine Chloride Urine Total Protein [place] Screen [place] Titer Miscellaneous Test Crossmatch 04/08/18 04/08/18 04/08/18 05:38 05:38 06:08 WBC RBC 2.76 L Hgb 7.8 L Hct 23.7 L MCV MCH MCHC RDW Plt Count Lymph % (Auto) [place] % (Auto) 14.7 H Lymph # [place] # 0.9 H Seg Neutrophils % Seg Neuts % (Manual) Lymphocytes % (Manual) Monocytes % (Manual) Eosinophils % (Manual) Seg Neutrophils # Lymphocytes # (Manual) Monocytes # (Manual) POC ABG pH POC ABG pCO2 POC ABG pO2 VBG pH Sodium 146 H D Potassium Chloride 113.3 H Carbon Dioxide 21 L BUN 28 H Creatinine 3.2 H Glucose 113 H POC Glucose 119 H Hemoglobin A1c Lactic Acid Calcium 8.0 L Phosphorus TIBC Transferrin Ferritin AST Total Creatine Kinase Troponin T NT-Pro-B Natriuret Pep Serum Total Protein Total Protein 6.0 L Albumin 2.9 L PEP Interpretation Triglycerides Cholesterol LDL Cholesterol Direct Urine Creatinine Urine Microalbumin Urine Chloride Urine Total Protein [facility] Screen [place] Titer Miscellaneous Test Crossmatch 04/08/18 04/08/18 04/08/18 12:00 17:07 17:30 WBC RBC Hgb Hct MCV MCH MCHC RDW Plt Count Lymph % (Auto) [place] % (Auto) Lymph # [place] # Seg Neutrophils % Seg Neuts % (Manual) Lymphocytes % (Manual) Monocytes % (Manual) Eosinophils % (Manual) Seg Neutrophils # Lymphocytes # (Manual) Monocytes # (Manual) POC ABG pH POC ABG pCO2 POC ABG pO2 VBG pH Sodium Potassium Chloride Carbon Dioxide BUN Creatinine Glucose POC Glucose 232 H 230 H Hemoglobin A1c Lactic Acid Calcium Phosphorus TIBC Transferrin Ferritin AST Total Creatine Kinase Troponin T NT-Pro-B Natriuret Pep Serum Total Protein Total Protein Albumin PEP Interpretation Triglycerides Cholesterol LDL Cholesterol Direct Urine Creatinine 63.0 H Urine Microalbumin 206.9 H Urine Chloride Urine Total Protein 288 H [facility] Screen [place] Titer Miscellaneous Test Crossmatch 04/08/18 04/09/18 04/09/18 21:06 06:47 10:08 WBC RBC Hgb Hct MCV MCH MCHC RDW Plt Count Lymph % (Auto) [place] % (Auto) Lymph # [place] # Seg Neutrophils % Seg Neuts % (Manual) Lymphocytes % (Manual) Monocytes % (Manual) Eosinophils % (Manual) Seg Neutrophils # Lymphocytes # (Manual) Monocytes # (Manual) POC ABG pH POC ABG pCO2 POC ABG pO2 VBG pH Sodium Potassium Chloride 107.9 H Carbon Dioxide 21 L BUN 29 H Creatinine 3.1 H Glucose POC Glucose 243 H 54 L Hemoglobin A1c Lactic Acid Calcium 7.9 L Phosphorus TIBC Transferrin Ferritin AST Total Creatine Kinase Troponin T NT-Pro-B Natriuret Pep Serum Total Protein Total Protein Albumin PEP Interpretation Triglycerides Cholesterol LDL Cholesterol Direct Urine Creatinine Urine Microalbumin Urine Chloride Urine Total Protein [place] Screen [place] Titer Miscellaneous Test Crossmatch 04/09/18 04/09/18 04/09/18 12:11 16:25 21:14 WBC RBC Hgb Hct MCV MCH MCHC RDW Plt Count Lymph % (Auto) [place] % (Auto) Lymph # [place] # Seg Neutrophils % Seg Neuts % (Manual) Lymphocytes % (Manual) Monocytes % (Manual) Eosinophils % (Manual) Seg Neutrophils # Lymphocytes # (Manual) Monocytes # (Manual) POC ABG pH POC ABG pCO2 POC ABG pO2 VBG pH Sodium Potassium Chloride Carbon Dioxide BUN Creatinine Glucose POC Glucose 108 H 235 H 224 H Hemoglobin A1c Lactic Acid Calcium Phosphorus TIBC Transferrin Ferritin AST Total Creatine Kinase Troponin T NT-Pro-B Natriuret Pep Serum Total Protein Total Protein Albumin PEP Interpretation Triglycerides Cholesterol LDL Cholesterol Direct Urine Creatinine Urine Microalbumin Urine Chloride Urine Total Protein [place] Screen [place] Titer Miscellaneous Test Crossmatch 04/10/18 04/10/18 04/10/18 06:33 09:05 11:12 WBC RBC 2.96 L Hgb 8.4 L Hct 25.7 L MCV MCH MCHC RDW Plt Count Lymph % (Auto) [place] % (Auto) 13.4 H Lymph # 0.9 L [place] # Seg Neutrophils % Seg Neuts % (Manual) Lymphocytes % (Manual) Monocytes % (Manual) Eosinophils % (Manual) Seg Neutrophils # Lymphocytes # (Manual) Monocytes # (Manual) POC ABG pH POC ABG pCO2 POC ABG pO2 VBG pH Sodium Potassium Chloride Carbon Dioxide 20 L BUN 31 H Creatinine 3.1 H Glucose 145 H POC Glucose 112 H Hemoglobin A1c Lactic Acid Calcium 7.9 L Phosphorus TIBC Transferrin Ferritin AST Total Creatine Kinase Troponin T NT-Pro-B Natriuret Pep Serum Total Protein Total Protein Albumin PEP Interpretation Triglycerides Cholesterol LDL Cholesterol Direct Urine Creatinine Urine Microalbumin Urine Chloride Urine Total Protein [place] Screen [place] Titer Miscellaneous Test Crossmatch 04/10/18 04/10/18 04/10/18 11:57 17:21 17:21 WBC RBC Hgb Hct MCV MCH MCHC RDW Plt Count Lymph % (Auto) [place] % (Auto) Lymph # [place] # Seg Neutrophils % Seg Neuts % (Manual) Lymphocytes % (Manual) Monocytes % (Manual) Eosinophils % (Manual) Seg Neutrophils # Lymphocytes # (Manual) Monocytes # (Manual) POC ABG pH POC ABG pCO2 POC ABG pO2 VBG pH Sodium Potassium Chloride Carbon Dioxide BUN Creatinine Glucose POC Glucose 212 H Hemoglobin A1c Lactic Acid Calcium Phosphorus TIBC Transferrin Ferritin AST Total Creatine Kinase Troponin T NT-Pro-B Natriuret Pep Serum Total Protein 5.6 L Total Protein Albumin 2.6 L PEP Interpretation see below H Triglycerides Cholesterol LDL Cholesterol Direct Urine Creatinine Urine Microalbumin Urine Chloride Urine Total Protein AZ[facility]A Screen Positive H AZALEA Titer 1:40 H Miscellaneous Test Crossmatch 04/10/18 04/10/18 04/10/18 21:05 21:39 21:42 WBC RBC Hgb Hct MCV MCH MCHC RDW Plt Count Lymph % (Auto) [place] % (Auto) Lymph # [place] # Seg Neutrophils % Seg Neuts % (Manual) Lymphocytes % (Manual) Monocytes % (Manual) Eosinophils % (Manual) Seg Neutrophils # Lymphocytes # (Manual) Monocytes # (Manual) POC ABG pH POC ABG pCO2 POC ABG pO2 VBG pH Sodium Potassium Chloride Carbon Dioxide BUN Creatinine Glucose 67 L POC Glucose < 40 L 126 H Hemoglobin A1c Lactic Acid Calcium Phosphorus TIBC Transferrin Ferritin AST Total Creatine Kinase Troponin T NT-Pro-B Natriuret Pep Serum Total Protein Total Protein Albumin PEP Interpretation Triglycerides Cholesterol LDL Cholesterol Direct Urine Creatinine Urine Microalbumin Urine Chloride Urine Total Protein [facility]A Screen [place] Titer Miscellaneous Test Crossmatch 04/11/18 04/11/18 04/11/18 05:20 05:20 05:28 WBC RBC 2.93 L Hgb 8.1 L Hct 25.1 L MCV MCH MCHC RDW Plt Count Lymph % (Auto) [place] % (Auto) 13.5 H Lymph # 0.9 L [place] # Seg Neutrophils % Seg Neuts % (Manual) Lymphocytes % (Manual) Monocytes % (Manual) Eosinophils % (Manual) Seg Neutrophils # Lymphocytes # (Manual) Monocytes # (Manual) POC ABG pH POC ABG pCO2 POC ABG pO2 VBG pH Sodium Potassium 5.1 H Chloride Carbon Dioxide 21 L BUN 30 H Creatinine 2.9 H Glucose 286 H POC Glucose 320 H Hemoglobin A1c Lactic Acid Calcium 7.5 L Phosphorus TIBC Transferrin Ferritin AST Total Creatine Kinase Troponin T NT-Pro-B Natriuret Pep Serum Total Protein Total Protein Albumin PEP Interpretation Triglycerides Cholesterol LDL Cholesterol Direct Urine Creatinine Urine Microalbumin Urine Chloride Urine Total Protein AZALEA Screen AZALEA Titer Miscellaneous Test Crossmatch 04/11/18 04/11/18 04/11/18 11:18 18:02 21:51 WBC RBC Hgb Hct MCV MCH MCHC RDW Plt Count Lymph % (Auto) [place] % (Auto) Lymph # [place] # Seg Neutrophils % Seg Neuts % (Manual) Lymphocytes % (Manual) Monocytes % (Manual) Eosinophils % (Manual) Seg Neutrophils # Lymphocytes # (Manual) Monocytes # (Manual) POC ABG pH POC ABG pCO2 POC ABG pO2 VBG pH Sodium Potassium Chloride Carbon Dioxide BUN Creatinine Glucose POC Glucose 302 H 269 H 183 H Hemoglobin A1c Lactic Acid Calcium Phosphorus TIBC Transferrin Ferritin AST Total Creatine Kinase Troponin T NT-Pro-B Natriuret Pep Serum Total Protein Total Protein Albumin PEP Interpretation Triglycerides Cholesterol LDL Cholesterol Direct Urine Creatinine Urine Microalbumin Urine Chloride Urine Total Protein AZALEA Screen AZALEA Titer Miscellaneous Test Crossmatch 04/11/18 04/12/18 04/12/18 Unknown 04:46 04:46 WBC RBC 2.75 L Hgb 7.8 L Hct 23.5 L MCV MCH MCHC RDW Plt Count Lymph % (Auto) [place] % (Auto) Lymph # [place] # Seg Neutrophils % Seg Neuts % (Manual) 73.0 H Lymphocytes % (Manual) 11.0 L Monocytes % (Manual) 15.0 H Eosinophils % (Manual) Seg Neutrophils # Lymphocytes # (Manual) 0.5 L Monocytes # (Manual) POC ABG pH POC ABG pCO2 POC ABG pO2 VBG pH Sodium Potassium Chloride Carbon Dioxide BUN 32 H Creatinine 3.1 H Glucose 64 L POC Glucose Hemoglobin A1c Lactic Acid Calcium 7.9 L Phosphorus TIBC Transferrin Ferritin AST Total Creatine Kinase Troponin T NT-Pro-B Natriuret Pep Serum Total Protein Total Protein Albumin PEP Interpretation Triglycerides Cholesterol LDL Cholesterol Direct Urine Creatinine Urine Microalbumin Urine Chloride Urine Total Protein AZALEA Screen AZALEA Titer Miscellaneous Test Flexitest 1 H Crossmatch 04/12/18 04/12/18 04/12/18 05:32 13:21 16:16 WBC RBC Hgb Hct MCV MCH MCHC RDW Plt Count Lymph % (Auto) [place] % (Auto) Lymph # [place] # Seg Neutrophils % Seg Neuts % (Manual) Lymphocytes % (Manual) Monocytes % (Manual) Eosinophils % (Manual) Seg Neutrophils # Lymphocytes # (Manual) Monocytes # (Manual) POC ABG pH POC ABG pCO2 POC ABG pO2 VBG pH Sodium Potassium Chloride Carbon Dioxide BUN Creatinine Glucose POC Glucose 54 L 366 H 310 H Hemoglobin A1c Lactic Acid Calcium Phosphorus TIBC Transferrin Ferritin AST Total Creatine Kinase Troponin T NT-Pro-B Natriuret Pep Serum Total Protein Total Protein Albumin PEP Interpretation Triglycerides Cholesterol LDL Cholesterol Direct Urine Creatinine Urine Microalbumin Urine Chloride Urine Total Protein AZALEA Screen AZALEA Titer Miscellaneous Test Crossmatch 04/12/18 04/13/18 04/13/18 21:23 05:11 05:11 WBC RBC 2.81 L Hgb 8.0 L Hct 24.4 L MCV MCH MCHC RDW Plt Count Lymph % (Auto) [place] % (Auto) Lymph # [place] # Seg Neutrophils % Seg Neuts % (Manual) Lymphocytes % (Manual) Monocytes % (Manual) 14.0 H Eosinophils % (Manual) Seg Neutrophils # Lymphocytes # (Manual) 1.1 L Monocytes # (Manual) POC ABG pH POC ABG pCO2 POC ABG pO2 VBG pH Sodium Potassium Chloride Carbon Dioxide BUN 29 H Creatinine 2.8 H Glucose 73 L POC Glucose 201 H Hemoglobin A1c Lactic Acid Calcium 7.9 L Phosphorus TIBC Transferrin Ferritin AST Total Creatine Kinase Troponin T NT-Pro-B Natriuret Pep Serum Total Protein Total Protein Albumin PEP Interpretation Triglycerides Cholesterol LDL Cholesterol Direct Urine Creatinine Urine Microalbumin Urine Chloride Urine Total Protein AZALEA Screen AZALEA Titer Miscellaneous Test Crossmatch 04/13/18 04/13/18 04/13/18 12:12 16:35 21:36 WBC RBC Hgb Hct MCV MCH MCHC RDW Plt Count Lymph % (Auto) [place] % (Auto) Lymph # [place] # Seg Neutrophils % Seg Neuts % (Manual) Lymphocytes % (Manual) Monocytes % (Manual) Eosinophils % (Manual) Seg Neutrophils # Lymphocytes # (Manual) Monocytes # (Manual) POC ABG pH POC ABG pCO2 POC ABG pO2 VBG pH Sodium Potassium Chloride Carbon Dioxide BUN Creatinine Glucose POC Glucose 200 H 168 H 164 H Hemoglobin A1c Lactic Acid Calcium Phosphorus TIBC Transferrin Ferritin AST Total Creatine Kinase Troponin T NT-Pro-B Natriuret Pep Serum Total Protein Total Protein Albumin PEP Interpretation Triglycerides Cholesterol LDL Cholesterol Direct Urine Creatinine Urine Microalbumin Urine Chloride Urine Total Protein AZALEA Screen AZALEA Titer Miscellaneous Test Crossmatch 04/14/18 04/14/18 04/14/18 06:06 07:45 07:45 WBC RBC 2.84 L Hgb 7.9 L Hct 24.2 L MCV MCH MCHC RDW Plt Count Lymph % (Auto) [place] % (Auto) Lymph # [place] # Seg Neutrophils % Seg Neuts % (Manual) Lymphocytes % (Manual) Monocytes % (Manual) 11.0 H Eosinophils % (Manual) 6.0 H Seg Neutrophils # Lymphocytes # (Manual) 0.9 L Monocytes # (Manual) POC ABG pH POC ABG pCO2 POC ABG pO2 VBG pH Sodium Potassium Chloride Carbon Dioxide BUN 29 H Creatinine 2.8 H Glucose POC Glucose 45 L Hemoglobin A1c Lactic Acid Calcium 8.0 L Phosphorus TIBC Transferrin Ferritin AST Total Creatine Kinase Troponin T NT-Pro-B Natriuret Pep Serum Total Protein Total Protein Albumin PEP Interpretation Triglycerides Cholesterol LDL Cholesterol Direct Urine Creatinine Urine Microalbumin Urine Chloride Urine Total Protein AZALEA Screen AZALEA Titer Miscellaneous Test Crossmatch 04/14/18 04/14/18 04/14/18 11:26 16:17 21:14 WBC RBC Hgb Hct MCV MCH MCHC RDW Plt Count Lymph % (Auto) [place] % (Auto) Lymph # [place] # Seg Neutrophils % Seg Neuts % (Manual) Lymphocytes % (Manual) Monocytes % (Manual) Eosinophils % (Manual) Seg Neutrophils # Lymphocytes # (Manual) Monocytes # (Manual) POC ABG pH POC ABG pCO2 POC ABG pO2 VBG pH Sodium Potassium Chloride Carbon Dioxide BUN Creatinine Glucose POC Glucose 165 H 233 H 136 H Hemoglobin A1c Lactic Acid Calcium Phosphorus TIBC Transferrin Ferritin AST Total Creatine Kinase Troponin T NT-Pro-B Natriuret Pep Serum Total Protein Total Protein Albumin PEP Interpretation Triglycerides Cholesterol LDL Cholesterol Direct Urine Creatinine Urine Microalbumin Urine Chloride Urine Total Protein AZALEA Screen AZALEA Titer Miscellaneous Test Crossmatch 04/15/18 04/15/18 04/15/18 05:16 05:16 06:46 WBC RBC 2.89 L Hgb 8.2 L Hct 24.8 L MCV MCH MCHC RDW Plt Count Lymph % (Auto) [place] % (Auto) Lymph # [place] # Seg Neutrophils % Seg Neuts % (Manual) Lymphocytes % (Manual) Monocytes % (Manual) 12.0 H Eosinophils % (Manual) Seg Neutrophils # Lymphocytes # (Manual) Monocytes # (Manual) POC ABG pH POC ABG pCO2 POC ABG pO2 VBG pH Sodium Potassium Chloride Carbon Dioxide BUN 28 H Creatinine 2.8 H Glucose 151 H POC Glucose 177 H Hemoglobin A1c Lactic Acid Calcium 8.2 L Phosphorus TIBC Transferrin Ferritin AST Total Creatine Kinase Troponin T NT-Pro-B Natriuret Pep Serum Total Protein Total Protein Albumin PEP Interpretation Triglycerides Cholesterol LDL Cholesterol Direct Urine Creatinine Urine Microalbumin Urine Chloride Urine Total Protein AZALEA Screen AZALEA Titer Miscellaneous Test Crossmatch Allied health notes reviewed: nursing
--- NOTE | 2018-04-15 13:45 | Progress Note ---
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: Volume Overload: Hypoalbuminemia: -Renal function reviewed, SCr level was 2.8 today, yesterday's SCr level was 2.8 -Calculated protein/cr ratio ~ 4.5 g, secondary GN/vasculitis work up in progress -Hepatitis panel, HIV, DsDNA Ab, SPEP, C3, C4, CH50, immunofixation - negative -ANCA, Anti-GBM, ASO, Anti-de [place], cryoglobuin, serum/urine free kappa/lambda pending -AZALEA positive with speckled pattern -Discussed with patient about possible need for renal biopsy given nephrotic range proteinuria, + AZALEA with speckled pattern, f/u pending serology labs -Pro-BNP was 1858 on 04/07/18 -S/p Renal US on 04/07/18 showed large postvoid residual of 113 ml, echogenic kidneys consistent with nonspecific renal parenchymal disease -Started on lasix 40 mg orally BID -Urine eosinophils absent, although doesn't r/o AIN -S/p CXR on 04/06/18 showed increased bilateral reticular interstitial opacities. No consolidating pneumonia, suspect small pleural effusion or pleural effusions -Renally dose meds -Strict intake and output -S/p Albumin 25 g IVPB every 8 hours x 6 doses -Obtain daily weight -Beard Catheter: No -Intake= 1690 ml Output= 1500 ml ( Net= 190 ml) -Renal plan d/w Dr Adrian -Continue supportive therapy Acute Respiratory Failure: -Extubated -Pulmonology on board Essential Hypertension: -On clonidine, coreg, hydralazine, and minipress -Started on Minipress -Adjust medications as needed DKA: -Resolved Subjective Date of service: 04/15/18 Principal diagnosis: Acute hypoxic respiratory failure, DKA, BELKIS, Acute encephalopathy Interval history: Pt reports feeling tired, denies shortness of breath, no acute distress, no family at bedside Objective - Vital Signs Vital signs: Vital Signs - 12hr 04/15/18 04/15/18 04/15/18 06:43 07:19 07:43 Temperature 98.6 F Pulse Rate 76 75 Respiratory 19 Rate Blood Pressure 199/82 179/72 Blood Pressure 178/80 [Left] O2 Sat by Pulse 94 Oximetry 04/15/18 04/15/1804/15/18 07:52 09:45 09:46 Temperature Pulse Rate Respiratory Rate Blood Pressure 178/88 158/78 158/78 Blood Pressure [Left] O2 Sat by Pulse Oximetry - General Appearance General appearance: well-developed (no acute distress) EENT: ATNC Neck: no JVD Respiratory: Present: Other (Lung sounds decreased bilaterally, unlabored) Cardiology: regular, S1S2 Gastrointestinal: normoactive bowel sounds, no tenderness Integumentary: warm and dry Neurologic: alert and oriented x3 Musculoskeletal: other (2+ edema to both lower extremities) Psychiatric: cooperative - Lab 04/15/18 05:16 04/15/18 05:16 Most recent lab results Calcium 8.2 mg/dL (8.4-10.2) L 04/15/18 05:16 Phosphorus 4.00 mg/dL (2.5-4.5) 04/15/18 05:16 Magnesium 2.00 mg/dL (1.7-2.3) 04/08/18 05:38 Urine Creatinine 63.0 mg/dL (0.1-20.0) H 04/08/18 17:30 Urine Sodium 94 mmol/L 04/07/18 14:00 Urine Total Protein 288 mg/dL (5-11.8) H 04/08/18 17:30
[2018-04-15] MEDS: NORVASC PO SCH (14:24)
[2018-04-15 18:08] LABS: Myeloperoxidase Antibody <1.0 AI (<1.0)
[2018-04-16] MEDS: APRESOLINE PO SCH ×3 (06:03→21:35)
[2018-04-16 06:53] LABS: Hematocrit 24.5 % (35.5-45.6); Hemoglobin 8.3 gm/dl (11.8-15.2); Mean Corpuscular HGB Conc 34 % (32-34); Mean Corpuscular Hemoglobin 29 pg (28-32); Mean Corpuscular Volume 85 fl (84-94); Platelet Count 316 K/mm3 (140-440); Red Blood Count 2.88 M/mm3 (3.65-5.03); Red Cell Distribution Width 14.3 % (13.2-15.2)
[2018-04-16] MEDS: D50W (25GM) Syringe IV PRN (06:55)
[2018-04-16 07:12] LABS: Basophils # (Auto) 0.1 K/mm3 (0.0-0.1); Eosinophils # (Auto) 0.2 K/mm3 (0.0-0.4); Eosinophils % (Auto) 4.1 % (0.0-4.3); Monocytes # (Auto) 0.8 K/mm3 (0.0-0.8)
[2018-04-16 07:16] LABS: Calcium 8.4 mg/dL (8.4-10.2)
[2018-04-16] MEDS: HumuLIN R SUB-Q SCH ×4 (08:39→22:26)
[2018-04-16 08:47] LABS: Anisocytosis 1+; Platelet Estimate Consistent w Auto; Total Cells Counted 100
[2018-04-16] MEDS: CATAPRES PO SCH ×3 (08:55→20:37)
[2018-04-16] MEDS: BABY ASPIRIN PO SCH (11:00)
[2018-04-16] MEDS: LASIX PO SCH ×2 (11:00→21:37)
[2018-04-16] MEDS: NORVASC PO SCH (11:00)
[2018-04-16] MEDS: COREG PO SCH ×2 (11:00→21:36)
[2018-04-16] MEDS: PROzac PO SCH (11:00)
[2018-04-16] MEDS: PEPCID PO SCH ×2 (11:00→21:37)
[2018-04-16] MEDS: MINIPRESS PO SCH ×2 (11:01→21:35)
[2018-04-16] MEDS: LOVENOX SUB-Q SCH (11:01)
[2018-04-16] MEDS: SODIUM CHLORIDE FLUSH SYRINGE 10 ML IV SCH ×2 (11:03→21:37)
[2018-04-16] MEDS: NORMODYNE PO SCH ×2 (11:35→21:36)
--- NOTE | 2018-04-16 14:38 | Progress Note ---
Assessment and Plan Assessment and plan: Acute kidney injury. Acute kidney injury workup still in progress. Currently workup for vasculitis. Several markers have returned negative. Renal following. Patient renal function improved hepatitis HIV negative. Still awaiting some markers. Cr 2.9 today Diabetic ketoacidosis. This is now resolved Diabetes mellitus type 2. Cont Novolin 70/30 mix bid Anasarca, improving Superficial thrombosis bilateral upper ext. Full anticoagulation not indicated DVT prophylaxis with Lovenox Full code status History Interval history: Feels better, Less leg edema less shortness of breath Hospitalist Physical - Physical exam Narrative exam: Gen : Not in acute distress, sitting up in bed HEENT:Normocephalic, atraumatic Neck: supple, tracheostomy Lungs:Clear to auscultation bilaterally,no crackles, no wheeze Heart :S1 and S2 reg, no murmurs, rubs or gallop Abd:soft, non tender, non distended, normal bowel sounds Ext: Bilateral leg edema improved, no clubbing, no cyanosis Neuro: Awake,alert,oriented x 3, no focal signs - Constitutional Vitals: Temp Pulse Resp BP Pulse Ox 99.0 F 81 20 178/75 91 04/16/18 07:58 04/16/18 07:58 04/16/18 07:58 04/16/18 11:01 04/16/18 07:58 General appearance: Present: no acute distress, obese Results - Labs CBC & Chem 7: 04/16/18 06:08 04/16/18 06:08 Labs: Laboratory Last Values WBC 4.4 K/mm3 (4.5-11.0) L 04/16/18 06:08 RBC 2.88 M/mm3 (3.65-5.03) L 04/16/18 06:08 Hgb 8.3 gm/dl (11.8-15.2) L 04/16/18 06:08 Hct 24.5 % (35.5-45.6) L 04/16/18 06:08 MCV 85 fl (84-94) 04/16/18 06:08 MCH 29 pg (28-32) 04/16/18 06:08 MCHC 34 % (32-34) 04/16/18 06:08 RDW 14.3 % (13.2-15.2) 04/16/18 06:08 Plt Count 316 K/mm3 (140-440) 04/16/18 06:08 Lymph % (Auto) 15.9 % (13.4-35.0) 04/11/18 05:20 [place] % (Auto) [employer] 04/16/18 06:08 Eos % (Auto) 4.1 % (0.0-4.3) 04/16/18 06:08 Baso % (Auto) 0.7 % (0.0-1.8) 04/11/18 05:20 Lymph # 0.9 K/mm3 (1.2-5.4) L 04/11/18 05:20 [place] # 0.8 K/mm3 (0.0-0.8) 04/16/18 06:08 Eos # 0.2 K/mm3 (0.0-0.4) 04/16/18 06:08 Baso # 0.1 K/mm3 (0.0-0.1) 04/16/18 06:08 Add Manual Diff Complete 04/16/18 06:08 Total Counted 100 04/16/18 06:08 Seg Neutrophils % 48.1 % (40.0-70.0) 04/16/18 06:08 Seg Neuts % (Manual) 47.0 % (40.0-70.0) 04/16/18 06:08 Band Neutrophils % 0 % 04/16/18 06:08 Lymphocytes % (Manual) 28.0 % (13.4-35.0) 04/16/18 06:08 Reactive Lymphs % (Man) 0 % 04/16/18 06:08 Monocytes % (Manual) 19.0 % (0.0-7.3) H 04/16/18 06:08 Eosinophils % (Manual) 4.0 % (0.0-4.3) 04/16/18 06:08 Basophils % (Manual) 2.0 % (0.0-1.8) H 04/16/18 06:08 Metamyelocytes % 0 % 04/16/18 06:08 Myelocytes % 0 % 04/16/18 06:08 Promyelocytes % 0 % 04/16/18 06:08 Blast Cells % 0 % 04/16/18 06:08 Nucleated RBC % Not Reportable 04/16/18 06:08 Seg Neutrophils # 2.1 K/mm3 (1.8-7.7) 04/16/18 06:08 Seg Neutrophils # Man 2.1 K/mm3 (1.8-7.7) 04/16/18 06:08 Band Neutrophils # 0.0 K/mm3 04/16/18 06:08 Lymphocytes # (Manual) 1.2 K/mm3 (1.2-5.4) 04/16/18 06:08 Abs React Lymphs (Man) 0.0 K/mm3 04/16/18 06:08 Monocytes # (Manual) 0.8 K/mm3 (0.0-0.8) 04/16/18 06:08 Eosinophils # (Manual) 0.2 K/mm3 (0.0-0.4) 04/16/18 06:08 Basophils # (Manual) 0.1 K/mm3 (0.0-0.1) 04/16/18 06:08 Metamyelocytes # 0.0 K/mm3 04/16/18 06:08 Myelocytes # 0.0 K/mm3 04/16/18 06:08 Promyelocytes # 0.0 K/mm3 04/16/18 06:08 Blast Cells # 0.0 K/mm3 04/16/18 06:08 WBC Morphology Not Reportable 04/16/18 06:08 Hypersegmented Neuts Not Reportable 04/16/18 06:08 Hyposegmented Neuts Not Reportable 04/16/18 06:08 Hypogranular Neuts Not Reportable 04/16/18 06:08 Smudge Cells Not Reportable 04/16/18 06:08 Toxic Granulation Not Reportable 04/16/18 06:08 Toxic Vacuolation Not Reportable 04/16/18 06:08 Dohle Bodies Not Reportable 04/16/18 06:08 Pelger-Huet Anomaly Not Reportable 04/16/18 06:08 Loi Rods Not Reportable 04/16/18 06:08 Platelet Estimate Consistent w auto 04/16/18 06:08 Clumped Platelets Not Reportable 04/16/18 06:08 Plt Clumps, EDTA Not Reportable 04/16/18 06:08 Large Platelets Not Reportable 04/16/18 06:08 Giant Platelets Not Reportable 04/16/18 06:08 Platelet Satelliting Not Reportable 04/16/18 06:08 Plt Morphology Comment Not Reportable 04/16/18 06:08 RBC Morphology Not Reportable 04/16/18 06:08 Dimorphic RBCs Not Reportable 04/16/18 06:08 Polychromasia Not Reportable 04/16/18 06:08 Hypochromasia Not Reportable 04/16/18 06:08 Poikilocytosis Not Reportable 04/16/18 06:08 Anisocytosis 1+ 04/16/18 06:08 Microcytosis Not Reportable 04/16/18 06:08 Macrocytosis Not Reportable 04/16/18 06:08 Spherocytes Not Reportable 04/16/18 06:08 Pappenheimer Bodies Not Reportable 04/16/18 06:08 Sickle Cells Not Reportable 04/16/18 06:08 Target Cells Not Reportable 04/16/18 06:08 Tear Drop Cells Not Reportable 04/16/18 06:08 Ovalocytes Not Reportable 04/16/18 06:08 Helmet Cells Not Reportable 04/16/18 06:08 [place] Bodies Not Reportable 04/16/18 06:08 [place] Rings Not Reportable 04/16/18 06:08 [place] Cells Not Reportable 04/16/18 06:08 Bite Cells Not Reportable 04/16/18 06:08 Crenated Cell Not Reportable 04/16/18 06:08 Elliptocytes Not Reportable 04/16/18 06:08 Acanthocytes (Spur) Not Reportable 04/16/18 06:08 Rouleaux Not Reportable 04/16/18 06:08 Hemoglobin C Crystals Not Reportable 04/16/18 06:08 Schistocytes Not Reportable 04/16/18 06:08 Malaria parasites Not Reportable 04/16/18 06:08 Lev Bodies Not Reportable 04/16/18 06:08 Hem Pathologist Commnt No 04/16/18 06:08 Lupus Anticoagulant see below 04/10/18 17:21 POC ABG pH 7.405 (7.35-7.45) 03/28/18 03:49 POC ABG pCO2 38.6 (35-45) 03/28/18 03:49 POC ABG pO2 102 (80-105) 03/28/18 03:49 POC ABG HCO3 24.2 03/28/18 03:49 POC ABG Total CO2 25 03/28/18 03:49 POC ABG O2 Sat 98 03/28/18 03:49 POC ABG Base Excess 0 03/28/18 03:49 VBG pH 7.000 (7.320-7.420) L* 03/25/18 14:41 FiO2 25 % 03/28/18 03:49 Sodium 142 mmol/L (137-145) 04/16/18 06:08 Potassium 4.0 mmol/L (3.6-5.0) 04/16/18 06:08 Chloride 103.4 mmol/L (98-107) 04/16/18 06:08 Carbon Dioxide 27 mmol/L (22-30) 04/16/18 06:08 Anion Gap 16 mmol/L 04/16/18 06:08 BUN 26 mg/dL (9-20) H 04/16/18 06:08 Creatinine 2.9 mg/dL (0.8-1.5) H 04/16/18 06:08 Estimated GFR 28 ml/min 04/16/18 06:08 BUN/Creatinine Ratio 9 % 04/16/18 06:08 Glucose 52 mg/dL (75-100) L 04/16/18 06:08 POC Glucose 270 (70-105) H 04/16/18 11:40 Hemoglobin A1c 8.9 % (4-6) H 03/25/18 18:55 Lactic Acid 1.80 mmol/L (0.7-2.0) 03/26/18 04:25 Calcium 8.4 mg/dL (8.4-10.2) 04/16/18 06:08 Phosphorus 4.00 mg/dL (2.5-4.5) 04/15/18 05:16 Magnesium 2.00 mg/dL (1.7-2.3) 04/08/18 05:38 Iron 54 ug/dL (49-181) 03/28/18 04:35 TIBC 115 mcg/dL (250-450) L 03/28/18 04:35 Transferrin 94 mg/dl (180-329) L 03/28/18 04:35 Ferritin 412.1 ng/mL (13.0-400.0) H 03/28/18 04:35 Total Bilirubin 0.40 mg/dL (0.1-1.2) 04/08/18 05:38 Direct Bilirubin < 0.2 mg/dL (0-0.2) 03/25/18 14:08 Indirect Bilirubin 0.1 mg/dL 03/25/18 14:08 AST 20 units/L (5-40) 04/08/18 05:38 ALT 17 units/L (7-56) 04/08/18 05:38 Alkaline Phosphatase 75 units/L (35-129) 04/08/18 05:38 Total Creatine Kinase 226 units/L (55-170) H 03/25/18 18:09 CK-MB (CK-2) 3.7 ng/mL (0.0-4.0) 03/25/18 18:09 CK-MB (CK-2) Rel Index 1.6 (0-4) 03/25/18 18:09 Troponin T 0.033 ng/mL (0.00-0.029) H 03/25/18 18:09 NT-Pro-B Natriuret Pep 1858 pg/mL (0-900) H 04/07/18 05:46 Serum Total Protein 5.6 g/dL (6.1-8.1) L 04/10/18 17:21 Total Protein 6.0 g/dL (6.3-8.2) L 04/08/18 05:38 Albumin 2.6 g/dL (3.8-4.8) L 04/10/18 17:21 Albumin/Globulin Ratio 0.9 % 04/08/18 05:38 Hqisz-6-Zqzlehntk 0.3 g/dL (0.2-0.3) 04/10/18 17:21 Qxdrj-4-Cfbhifkla 0.8 g/dL (0.5-0.9) 04/10/18 17:21 Beta Globulins 0.3 g/dL (0.2-0.5) 04/10/18 17:21 Gamma Globulins 1.3 g/dL (0.8-1.7) 04/10/18 17:21 Abnorm Protein Band 1 see below 04/10/18 17:21 PEP Interpretation see below H 04/10/18 17:21 Triglycerides 185 mg/dL (2-149) H 03/25/18 18:09 Cholesterol 215 mg/dL (50-199) H 03/25/18 18:09 LDL Cholesterol Direct 144 mg/dL (50-130) H 03/25/18 18:09 HDL Cholesterol 48 mg/dL (40-59) 03/25/18 18:09 Cholesterol/HDL Ratio 4.47 % 03/25/18 18:09 Urine Color Yellow (Yellow) 04/08/18 17:30 Urine Turbidity Clear (Clear) 04/08/18 17:30 Urine pH 5.0 (5.0-7.0) 04/08/18 17:30 Ur Specific [place] 1.011 (1.003-1.030) 04/08/18 17:30 Urine Protein 100 mg/dl mg/dL (Negative) 04/08/18 17:30 Urine Glucose (UA) Neg mg/dL (Negative) 04/08/18 17:30 Urine Ketones Neg mg/dL (Negative) 04/08/18 17:30 Urine Blood Sm (Negative) 04/08/18 17:30 Urine Nitrite Neg (Negative) 04/08/18 17:30 Urine Bilirubin Neg (Negative) 04/08/18 17:30 Urine Urobilinogen < 2.0 mg/dL (<2.0) 04/08/18 17:30 Ur Leukocyte Esterase Neg (Negative) 04/08/18 17:30 Urine WBC (Auto) < 1.0 /HPF (0.0-6.0) 04/08/18 17:30 Urine RBC (Auto) 4.0 /HPF (0.0-6.0) 04/08/18 17:30 Urine Bacteria (Auto) 1+ /HPF (Negative) 04/08/18 17:30 Uric Acid Crystals 2+ 04/05/18 06:18 Hyaline Casts 1 /LPF 04/08/18 17:30 Urine Mucus Few /HPF 04/08/18 17:30 Urine Yeast (Budding) 1+ /HPF 04/05/18 06:18 Urine Eosinophils None seen (None Seen) 04/07/18 14:00 Urine Creatinine 63.0 mg/dL (0.1-20.0) H 04/08/18 17:30 Urine Microalbumin 206.9 mg/dL (0.1-34.0) H 04/08/18 17:30 Microalb/Creat Ratio 3284.1 ug/mg 04/08/18 17:30 Protein/Creatinin Ratio 4.57 04/08/18 17:30 Urine Sodium 94 mmol/L 04/07/18 14:00 Urine Chloride 91.4 mmolL (110-250) L 04/07/18 14:00 Urine Urea Nitrogen 215 04/07/18 14:00 Urine Total Protein 288 mg/dL (5-11.8) H 04/08/18 17:30 Random Vancomycin 8.9 ug/mL (0-40.0) 04/10/18 09:05 Urine Opiates Screen Presumptive negative 03/25/18 14:19 Urine Methadone Screen Presumptive negative 03/25/18 14:19 Ur Barbiturates Screen Presumptive negative 03/25/18 14:19 Ur Phencyclidine Scrn Presumptive negative 03/25/18 14:19 Ur Amphetamines Screen Presumptive negative 03/25/18 14:19 U Benzodiazepines Scrn Presumptive negative 03/25/18 14:19 Urine Cocaine Screen Presumptive negative 03/25/18 14:19 U Marijuana (THC) Screen Presumptive negative 03/25/18 14:19 Drugs of Abuse Note Disclamer 03/25/18 14:19 Immunofix Electrophor see below 04/10/18 17:21 AZALEA Screen Positive (Negative) H 04/10/18 17:21 AZALEA Titer 1:40 (Negative) H 04/10/18 17:21 AZALEA Pattern Speckled 04/10/18 17:21 Proteinase 3 (PR3) Ab <1.0 AI (<1.0) 04/10/18 17:21 Myeloperoxidase Ab <1.0 AI (<1.0) 04/10/18 17:21 Sm ([place]bar[place]) Antibody <1.0 AI (<1.0) 04/10/18 17:21 Double Strand DNA Ab 2 IU/mL (<=4) 04/10/18 17:21 Glomerular Base Mem IgG <1.0 AI (<1.0) 04/10/18 17:21 Complement C3 118 mg/dL (82-185) 04/10/18 17:21 Complement C4 37 mg/dL (15-53) 04/10/18 17:21 Tot Complement (CH50) 60 U/mL (31-60) 04/10/18 17:21 Hepatitis A IgM Ab Non-reactive (NonReactive) 04/10/18 17:21 Hep Bs Antigen Non-reactive (Negative) 04/10/18 17:21 Hep B Core IgM Ab Non-reactive (NonReactive) 04/10/18 17:21 Hepatitis C Antibody Non-reactive (NonReactive) 04/10/18 17:21 HIV 1&2 Antibody Rapid Non react (Non React) 04/10/18 17:21 HIV P24 Antigen Non react (Non React) 04/10/18 17:21 Miscellaneous Test Flexitest 1 H 04/11/18 Unknown Blood Type O POSITIVE 04/04/18 20:14 Antibody Screen Negative 04/04/18 20:14 Crossmatch See Detail 04/04/18 20:14
--- NOTE | 2018-04-16 15:37 | Progress Note ---
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: Volume Overload: Hypoalbuminemia: -stable kidney function - negative secondary GN and vascultis work up light chains pending -cont lasix to 40 mg PO BID -Renally dose meds -Strict intake and output -Obtain daily weight -Beard Catheter: No Acute Respiratory Failure: -Extubated -Pulmonology on board Essential Hypertension: -On clonidine, coreg, hydralazine, and minipress DKA: -Resolved will sign off, please re consult as needed, patient will be followed as an outpatient upon discharge Subjective Date of service: 04/16/18 Principal diagnosis: Acute hypoxic respiratory failure, DKA, BELKIS, Acute encephalopathy Interval history: swelling is slowly improving Objective - Vital Signs Vital signs: Vital Signs - 12hr 04/16/18 04/16/18 04/16/18 06:00 06:03 07:58 Temperature 99.0 F Pulse Rate 72 73 81 Respiratory 20 Rate Blood Pressure 161/77 161/77 159/69 O2 Sat by Pulse 96 91 Oximetry 04/16/18 04/16/18 04/16/18 08:55 11:00 11:01 Temperature Pulse Rate Respiratory Rate Blood Pressure 159/69 178/75 178/75 O2 Sat by Pulse Oximetry - General Appearance General appearance: well-developed, well-nourished EENT: ATNC, PERRL, mucous membranes moist Neck: no JVD, no thyromegaly Respiratory: Present: Clear to Ascultation Cardiology: regular, normal heart rate, S1S2, no murmurs Gastrointestinal: normoactive bowel sounds Integumentary: no rash, warm and dry Neurologic: no focal deficit, no asterixis, alert and oriented x3 Psychiatric: cooperative - Lab 04/16/18 06:08 04/16/18 06:08 Most recent lab results Calcium 8.4 mg/dL (8.4-10.2) 04/16/18 06:08 Phosphorus 4.00 mg/dL (2.5-4.5) 04/15/18 05:16 Magnesium 2.00 mg/dL (1.7-2.3) 04/08/18 05:38 Urine Creatinine 63.0 mg/dL (0.1-20.0) H 04/08/18 17:30 Urine Sodium 94 mmol/L 04/07/18 14:00 Urine Total Protein 288 mg/dL (5-11.8) H 04/08/18 17:30
[2018-04-17] MEDS: APRESOLINE PO SCH ×2 (06:01→13:57)
[2018-04-17] MEDS: HumuLIN R SUB-Q SCH ×2 (08:44→13:55)
[2018-04-17] MEDS: CATAPRES PO SCH ×2 (08:48→13:57)
[2018-04-17] MEDS: PEPCID PO SCH (10:00)
[2018-04-17] MEDS: LOVENOX SUB-Q SCH (10:47)
[2018-04-17] MEDS: MINIPRESS PO SCH (10:48)
[2018-04-17] MEDS: COREG PO SCH (10:49)
[2018-04-17] MEDS: LASIX PO SCH (10:49)
[2018-04-17] MEDS: NORVASC PO SCH (10:49)
[2018-04-17] MEDS: PROzac PO SCH (10:49)
[2018-04-17] MEDS: BABY ASPIRIN PO SCH (10:49)
[2018-04-17] MEDS: NORMODYNE PO SCH (10:50)
[2018-04-17] MEDS: SODIUM CHLORIDE FLUSH SYRINGE 10 ML IV SCH (10:51)
[2018-04-17 12:03] LABS: Calcium 8.1 mg/dL (8.4-10.2)
--- NOTE | 2018-04-17 12:11 | Discharge Summary ---
Providers - Providers Date of Admission: 03/25/18 16:07 Date of discharge: 04/17/18 Attending physician: ZEKE AN 03/25/18 13:57 Consult to Dietitian/Nutrition [CONS] Routine Physician Instructions: Reason For Exam: Reason for Consult: Write/Manage TPN/PPN 03/25/18 15:29 Consult to Case Management [CONS] Routine Services Needed at Discharge: Other Notified:: Mónica Robertson Time called:: 09:15 03/25/18 15:56 Consult to Physician [CONS] Urgent Comment: Consulting Provider: DEB MANRQIUE Physician Instructions: Reason For Exam: dka 03/25/18 16:05 Consult to Physician [CONS] Urgent Comment: Consulting Provider: BELEN PINK Physician Instructions: Reason For Exam: DKA RF Lactic Acidosis 03/26/18 09:33 Consult to Dietitian/Nutrition [CONS] Routine Physician Instructions: Assess nutrtn needs, initiate, modify, manage TF Reason For Exam: Reason for Consult: Write/Manage Tube Feeding Reason for Consult: Write/Manage Tube Feeding 03/26/18 09:34 Consult to Dietitian/Nutrition [CONS] Routine Physician Instructions: Reason For Exam: Reason for Consult: Write/Manage Tube Feeding 03/26/18 09:35 Physical Therapy Evaluation and Treat [CONS] Routine Comment: Wait until extubated Reason For Exam: PT 03/28/18 13:42 Speech Therapy Evaluation and Treat [CONS] Routine Reason For Exam: aspiration 04/01/18 12:18 Consult to Physician [CONS] Urgent Comment: Consulting Provider: KOLE ESCOBEDO Physician Instructions: Reason For Exam: severe anemia/possible GI bleeding 04/02/18 14:54 Consult to Physician [CONS] Routine Comment: Consulting Provider: DELFINO MENARD Physician Instructions: Reason For Exam: Rey UE SVT 04/03/18 12:45 Consult to Wound/ET Nurse [CONS] Routine Reason For Exam: wound eval 04/03/18 18:21 Consult to Dietitian/Nutrition [CONS] Routine Physician Instructions: Reason For Exam: hypoalbuminemia/severe malnutrition Reason for Consult: Malnutrition 04/07/18 08:12 psychiatry consult [Consult to Mental Health] [CONS] Routine Reason For Exam: Depression Place consult to:: transfusion nurse Notified:: IVAN Phone number called:: [phone] Was contact made?: Yes If yes, spoke with:: IVAN Time called:: 09:20 Primary care physician: TWINE WINDER Hospitalization Condition: Fair Disposition: DC-01 TO HOME OR SELFCARE Core Measure Documentation - Palliative Care Palliative Care/ Comfort Measures: Not Applicable - Core Measures Any of the following diagnoses?: none Exam - Constitutional Vitals: Temp Pulse Resp BP Pulse Ox 98.5 F 81 18 164/76 95 04/17/18 07:23 04/17/18 10:50 04/17/18 07:23 04/17/18 10:49 04/17/18 07:23 Plan Activity: no restrictions Diet: low fat, low cholesterol, low salt, renal Additional Instructions: 1.Follow up with PCP or [facility] in 1 week. 2.Follow up with Dr. Manrique, Nephrology in 1 week. 3.Continue Insulin pump. 4.Follow up with Endocrinology as scheduled tomorrow. Follow up with: PRIMARY CARE, [Primary Care Provider] - 3-5 Days Prescriptions: amLODIPine [Norvasc] 10 mg PO QDAY #30 tablet Aspirin EC [Aspirin Enteric Coated TAB] 81 mg PO QDAY #30 tablet. cloNIDine [Catapres] 0.2 mg PO TID #90 tablet Famotidine [Pepcid] 10 mg PO BID #60 tablet Furosemide [Lasix TAB] 40 mg PO BID #60 tablet hydrALAZINE [Apresoline TAB] 100 mg PO TID #90 tab
--- NOTE | 2018-04-17 12:20 | Progress Note ---
Assessment and Plan Acute respiratory failure s/p mechanical ventilator. Bilateral pleural effusions Sepsis syndrome. Diabetic ketoacidosis. Severe metabolic acidosis. Acute on chronic encephalopathy, rule out cerebrovascular accident. Medication noncompliance. Anemia. Hyperkalemia. Acute kidney injury. - supplemental oxygen as needed to keep O2 Sats > 90% - repeat CXR prn re: pulm edema and small effusions on last CXR - s/p empiric antibiotics - continue diuresis and follow electrolytes / BUN & Cr (adjust dosing per nephrology) - nephrology evaluation ongoing (awaiting serologies) - continue glycemic control with 70/30 insulin (16 units BID) and SSI - continue VTE prophylaxis - continue Stress ulcer prophylaxis - Avoid delirium, avoid benzodiazepines - Avoid nephrotoxic agents and adjust all medications for CrCl/GFR - continue PT/OT as tolerated - continue other care per attending / other consultants ..... improved overall but still borderline pulmonary status and at risk for volume overload ...25' Subjective Date of service: 04/17/18 Principal diagnosis: Acute hypoxic respiratory failure, DKA, BELKIS, Acute encephalopathy Interval history: Patient is seen today for: Acute hypoxic respiratory failure, DKA, BELKIS, Acute encephalopathy Seen and examined at bedside; 24hour events reviewed; nursing and respiratory care staff consulted; no adverse overnight events reported to me; resting peacefully in bed; Objective Vital Signs - 12hr 04/17/18 04/17/18 04/17/18 06:01 07:23 10:48 Temperature 98.5 F Pulse Rate 77 81 81 Respiratory 18 Rate Blood Pressure 150/75 164/67 164/76 O2 Sat by Pulse 95 Oximetry 04/17/18 04/17/18 10:49 10:50 Temperature Pulse Rate 81 81 Respiratory Rate Blood Pressure 164/76 O2 Sat by Pulse Oximetry Constitutional: no acute distress, alert, other (middle aged normocephalic and atraumatic AAM) Eyes: non-icteric ENT: oropharynx moist, other (mallampatti 2) Neck: supple, no lymphadenopathy, no JVD, other (no thyromegaly) Effort: normal Ascultation: Bilateral: clear, diminished breath sounds, rhonchi (posterior base ) Percussion: Bilateral: not dull Cardiovascular: regular rate and rhythm, other (No R/M) Gastrointestinal: normoactive bowel sounds, soft, non-tender, non-distended, other ( No HSM) Integumentary: normal Extremities: no cyanosis, pulses normal, no ischemia or petechiae, edema (2+ pedal edema) Neurologic: normal mental status, non-focal exam (grossly), pupils equal and round, CN II-XII normal, motor strength normal and Psychiatric: mood appropriate, affect normal CBC and BMP: 04/16/18 06:08 04/17/18 06:45 ABG, PT/INR, D-dimer: ABG POC ABG pH 7.405 (7.35-7.45) 03/28/18 03:49 POC ABG pCO2 38.6 (35-45) 03/28/18 03:49 POC ABG pO2 102 (80-105) 03/28/18 03:49 POC ABG HCO3 24.2 03/28/18 03:49 POC ABG Total CO2 25 03/28/18 03:49 POC ABG O2 Sat 98 03/28/18 03:49 Abnormal lab findings: Abnormal Labs 03/25/18 03/25/18 03/25/18 13:48 14:00 14:00 WBC 15.3 H RBC Hgb 10.5 L Hct MCV 95 H MCH 27 L MCHC 28 L RDW Plt Count Lymph % (Auto) 8.5 L [place] % (Auto) Lymph # [place] # Seg Neutrophils % 86.4 H Seg Neuts % (Manual) Lymphocytes % (Manual) Monocytes % (Manual) Eosinophils % (Manual) Basophils % (Manual) Seg Neutrophils # 13.2 H Lymphocytes # (Manual) Monocytes # (Manual) POC ABG pH POC ABG pCO2 POC ABG pO2 VBG pH Sodium 132 L Potassium 8.1 H* Chloride 87.8 L Carbon Dioxide 3 L* BUN 43 H Creatinine 2.6 H Glucose 1026 H* POC Glucose > 500 H Hemoglobin A1c Lactic Acid Calcium Phosphorus TIBC Transferrin Ferritin AST Total Creatine Kinase Troponin T NT-Pro-B Natriuret Pep Serum Total Protein Total Protein Albumin PEP Interpretation Triglycerides Cholesterol LDL Cholesterol Direct Urine Creatinine Urine Microalbumin Urine Chloride Urine Total Protein [place]A Screen AZALEA Titer Miscellaneous Test Crossmatch 03/25/18 03/25/18 03/25/18 14:00 14:08 14:29 WBC RBC Hgb Hct MCV MCH MCHC RDW Plt Count Lymph % (Auto) [place] % (Auto) Lymph # [place] # Seg Neutrophils % Seg Neuts % (Manual) Lymphocytes % (Manual) Monocytes % (Manual) Eosinophils % (Manual) Basophils % (Manual) Seg Neutrophils # Lymphocytes # (Manual) Monocytes # (Manual) POC ABG pH 6.952 L POC ABG pCO2 25.8 L POC ABG pO2 559 H VBG pH Sodium Potassium Chloride Carbon Dioxide BUN Creatinine Glucose POC Glucose Hemoglobin A1c Lactic Acid 10.10 H* Calcium Phosphorus 8.70 H TIBC Transferrin Ferritin AST Total Creatine Kinase Troponin T NT-Pro-B Natriuret Pep Serum Total Protein Total Protein Albumin 2.6 L PEP Interpretation Triglycerides Cholesterol LDL Cholesterol Direct Urine Creatinine Urine Microalbumin Urine Chloride Urine Total Protein [place] Screen AZALEA Titer Miscellaneous Test Crossmatch 03/25/18 03/25/18 03/25/18 14:41 15:40 15:40 WBC RBC Hgb Hct MCV MCH MCHC RDW Plt Count Lymph % (Auto) [place] % (Auto) Lymph # [place] # Seg Neutrophils % Seg Neuts % (Manual) Lymphocytes % (Manual) Monocytes % (Manual) Eosinophils % (Manual) Basophils % (Manual) Seg Neutrophils # Lymphocytes # (Manual) Monocytes # (Manual) POC ABG pH POC ABG pCO2 POC ABG pO2 VBG pH 7.000 L* Sodium Potassium 6.7 H* Chloride 97.5 L Carbon Dioxide 5 L* BUN 43 H Creatinine 2.5 H Glucose 893 H* POC Glucose Hemoglobin A1c Lactic Acid Calcium 7.5 L Phosphorus 9.10 H TIBC Transferrin Ferritin AST Total Creatine Kinase Troponin T NT-Pro-B Natriuret Pep Serum Total Protein Total Protein Albumin PEP Interpretation Triglycerides Cholesterol LDL Cholesterol Direct Urine Creatinine Urine Microalbumin Urine Chloride Urine Total Protein [place] Screen [place]A Titer Miscellaneous Test Crossmatch 03/25/18 03/25/18 03/25/18 18:09 18:12 18:55 WBC RBC Hgb Hct MCV MCH MCHC RDW Plt Count Lymph % (Auto) [place] % (Auto) Lymph # [place] # Seg Neutrophils % Seg Neuts % (Manual) Lymphocytes % (Manual) Monocytes % (Manual) Eosinophils % (Manual) Basophils % (Manual) Seg Neutrophils # Lymphocytes # (Manual) Monocytes # (Manual) POC ABG pH POC ABG pCO2 POC ABG pO2 VBG pH Sodium 133 L Potassium 5.7 H Chloride 93.1 L Carbon Dioxide 10 L BUN 43 H Creatinine 2.5 H Glucose 786 H* POC Glucose Hemoglobin A1c 8.9 H Lactic Acid Calcium 7.8 L Phosphorus TIBC Transferrin Ferritin AST Total Creatine Kinase 226 H Troponin T 0.033 H NT-Pro-B Natriuret Pep Serum Total Protein Total Protein Albumin PEP Interpretation Triglycerides 185 H Cholesterol 215 H LDL Cholesterol Direct 144 H Urine Creatinine Urine Microalbumin Urine Chloride Urine Total Protein [place] Screen [place] Titer Miscellaneous Test Crossmatch 03/25/18 03/25/18 03/25/18 18:55 21:00 21:03 WBC RBC Hgb Hct MCV MCH MCHC RDW Plt Count Lymph % (Auto) [place] % (Auto) Lymph # [place] # Seg Neutrophils % Seg Neuts % (Manual) Lymphocytes % (Manual) Monocytes % (Manual) Eosinophils % (Manual) Basophils % (Manual) Seg Neutrophils # Lymphocytes # (Manual) Monocytes # (Manual) POC ABG pH POC ABG pCO2 POC ABG pO2 VBG pH Sodium 136 L Potassium 6.7 H* Chloride Carbon Dioxide 7 L* BUN 45 H Creatinine 2.6 H Glucose 879 H* POC Glucose > 500 H Hemoglobin A1c Lactic Acid Calcium 7.8 L Phosphorus 9.20 H TIBC Transferrin Ferritin AST Total Creatine Kinase Troponin T NT-Pro-B Natriuret Pep Serum Total Protein Total Protein Albumin PEP Interpretation Triglycerides Cholesterol LDL Cholesterol Direct Urine Creatinine Urine Microalbumin Urine Chloride Urine Total Protein [place] Screen [place] Titer Miscellaneous Test Crossmatch 03/25/18 03/25/18 03/25/18 21:39 22:06 23:20 WBC RBC Hgb Hct MCV MCH MCHC RDW Plt Count Lymph % (Auto) [place] % (Auto) Lymph # [place] # Seg Neutrophils % Seg Neuts % (Manual) Lymphocytes % (Manual) Monocytes % (Manual) Eosinophils % (Manual) Basophils % (Manual) Seg Neutrophils # Lymphocytes # (Manual) Monocytes # (Manual) POC ABG pH 7.272 L POC ABG pCO2 14.2 L POC ABG pO2 263 H VBG pH Sodium Potassium Chloride Carbon Dioxide 7 L* BUN 47 H Creatinine 2.9 H Glucose 702 H* POC Glucose > 500 H Hemoglobin A1c Lactic Acid Calcium 7.6 L Phosphorus TIBC Transferrin Ferritin AST Total Creatine Kinase Troponin T NT-Pro-B Natriuret Pep Serum Total Protein Total Protein Albumin PEP Interpretation Triglycerides Cholesterol LDL Cholesterol Direct Urine Creatinine Urine Microalbumin Urine Chloride Urine Total Protein [place] Screen [place] Titer Miscellaneous Test Crossmatch 03/25/18 03/26/18 03/26/18 23:20 00:17 01:08 WBC RBC Hgb Hct MCV MCH MCHC RDW Plt Count Lymph % (Auto) [place] % (Auto) Lymph # [place] # Seg Neutrophils % Seg Neuts % (Manual) Lymphocytes % (Manual) Monocytes % (Manual) Eosinophils % (Manual) Basophils % (Manual) Seg Neutrophils # Lymphocytes # (Manual) Monocytes # (Manual) POC ABG pH POC ABG pCO2 POC ABG pO2 VBG pH Sodium Potassium Chloride Carbon Dioxide BUN Creatinine Glucose POC Glucose > 500 H 447 H 484 H Hemoglobin A1c Lactic Acid Calcium Phosphorus TIBC Transferrin Ferritin AST Total Creatine Kinase Troponin T NT-Pro-B Natriuret Pep Serum Total Protein Total Protein Albumin PEP Interpretation Triglycerides Cholesterol LDL Cholesterol Direct Urine Creatinine Urine Microalbumin Urine Chloride Urine Total Protein [place] Screen [place] Titer Miscellaneous Test Crossmatch 03/26/18 03/26/18 03/26/18 02:31 03:07 04:09 WBC RBC Hgb Hct MCV MCH MCHC RDW Plt Count Lymph % (Auto) [place] % (Auto) Lymph # [place] # Seg Neutrophils % Seg Neuts % (Manual) Lymphocytes % (Manual) Monocytes % (Manual) Eosinophils % (Manual) Basophils % (Manual) Seg Neutrophils # Lymphocytes # (Manual) Monocytes # (Manual) POC ABG pH POC ABG pCO2 POC ABG pO2 VBG pH Sodium Potassium Chloride Carbon Dioxide BUN Creatinine Glucose POC Glucose > 500 H 467 H 361 H Hemoglobin A1c Lactic Acid Calcium Phosphorus TIBC Transferrin Ferritin AST Total Creatine Kinase Troponin T NT-Pro-B Natriuret Pep Serum Total Protein Total Protein Albumin PEP Interpretation Triglycerides Cholesterol LDL Cholesterol Direct Urine Creatinine Urine Microalbumin Urine Chloride Urine Total Protein [place] Screen [place] Titer Miscellaneous Test Crossmatch 03/26/18 03/26/18 03/26/18 04:25 05:24 06:19 WBC RBC Hgb Hct MCV MCH MCHC RDW Plt Count Lymph % (Auto) [place] % (Auto) Lymph # [place] # Seg Neutrophils % Seg Neuts % (Manual) Lymphocytes % (Manual) Monocytes % (Manual) Eosinophils % (Manual) Basophils % (Manual) Seg Neutrophils # Lymphocytes # (Manual) Monocytes # (Manual) POC ABG pH POC ABG pCO2 POC ABG pO2 VBG pH Sodium 150 H D Potassium 3.4 L D Chloride 118.3 H Carbon Dioxide 16 L D BUN 45 H Creatinine 2.7 H Glucose 278 H POC Glucose 306 H 188 H Hemoglobin A1c Lactic Acid Calcium 7.7 L Phosphorus TIBC Transferrin Ferritin AST Total Creatine Kinase Troponin T NT-Pro-B Natriuret Pep Serum Total Protein Total Protein Albumin PEP Interpretation Triglycerides Cholesterol LDL Cholesterol Direct Urine Creatinine Urine Microalbumin Urine Chloride Urine Total Protein [place] Screen [place] Titer Miscellaneous Test Crossmatch 03/26/18 03/26/18 03/26/18 07:09 08:20 09:12 WBC RBC Hgb Hct MCV MCH MCHC RDW Plt Count Lymph % (Auto) [place] % (Auto) Lymph # [place] # Seg Neutrophils % Seg Neuts % (Manual) Lymphocytes % (Manual) Monocytes % (Manual) Eosinophils % (Manual) Basophils % (Manual) Seg Neutrophils # Lymphocytes # (Manual) Monocytes # (Manual) POC ABG pH 7.530 H POC ABG pCO2 22.0 L POC ABG pO2 147 H VBG pH Sodium Potassium Chloride Carbon Dioxide BUN Creatinine Glucose POC Glucose 148 H 170 H Hemoglobin A1c Lactic Acid Calcium Phosphorus TIBC Transferrin Ferritin AST Total Creatine Kinase Troponin T NT-Pro-B Natriuret Pep Serum Total Protein Total Protein Albumin PEP Interpretation Triglycerides Cholesterol LDL Cholesterol Direct Urine Creatinine Urine Microalbumin Urine Chloride Urine Total Protein [place] Screen [place] Titer Miscellaneous Test Crossmatch 03/26/18 03/26/18 03/26/18 09:15 10:30 10:46 WBC RBC Hgb Hct MCV MCH MCHC RDW Plt Count Lymph % (Auto) [place] % (Auto) Lymph # [place] # Seg Neutrophils % Seg Neuts % (Manual) Lymphocytes % (Manual) Monocytes % (Manual) Eosinophils % (Manual) Basophils % (Manual) Seg Neutrophils # Lymphocytes # (Manual) Monocytes # (Manual) POC ABG pH POC ABG pCO2 POC ABG pO2 VBG pH Sodium 152 H Potassium 3.1 L Chloride 121.4 H Carbon Dioxide BUN 43 H Creatinine 2.6 H Glucose 105 H POC Glucose 177 H 125 H Hemoglobin A1c Lactic Acid Calcium 7.5 L Phosphorus TIBC Transferrin Ferritin AST Total Creatine Kinase Troponin T NT-Pro-B Natriuret Pep Serum Total Protein Total Protein Albumin PEP Interpretation Triglycerides Cholesterol LDL Cholesterol Direct Urine Creatinine Urine Microalbumin Urine Chloride Urine Total Protein [place] Screen [place] Titer Miscellaneous Test Crossmatch 05/29/18 05/29/18 05/29/18 14:57 15:35 18:12 WBC RBC Hgb Hct MCV MCH MCHC RDW Plt Count Lymph % (Auto) [place] % (Auto) Lymph # [place] # Seg Neutrophils % Seg Neuts % (Manual) Lymphocytes % (Manual) Monocytes % (Manual) Eosinophils % (Manual) Basophils % (Manual) Seg Neutrophils # Lymphocytes # (Manual) Monocytes # (Manual) POC ABG pH POC ABG pCO2 POC ABG pO2 VBG pH Sodium 148 H Potassium Chloride 117.5 H Carbon Dioxide 18 L BUN 43 H Creatinine 2.5 H Glucose 135 H POC Glucose 159 H 245 H Hemoglobin A1c Lactic Acid Calcium 7.3 L Phosphorus TIBC Transferrin Ferritin AST Total Creatine Kinase Troponin T NT-Pro-B Natriuret Pep Serum Total Protein Total Protein Albumin PEP Interpretation Triglycerides Cholesterol LDL Cholesterol Direct Urine Creatinine Urine Microalbumin Urine Chloride Urine Total Protein [place] Screen [place] Titer Miscellaneous Test Crossmatch 03/26/18 03/26/18 03/27/18 19:27 21:42 02:03 WBC RBC Hgb Hct MCV MCH MCHC RDW Plt Count Lymph % (Auto) [place] % (Auto) Lymph # [place] # Seg Neutrophils % Seg Neuts % (Manual) Lymphocytes % (Manual) Monocytes % (Manual) Eosinophils % (Manual) Basophils % (Manual) Seg Neutrophils # Lymphocytes # (Manual) Monocytes # (Manual) POC ABG pH POC ABG pCO2 POC ABG pO2 VBG pH Sodium Potassium Chloride 115.0 H Carbon Dioxide 20 L BUN 42 H Creatinine 2.4 H Glucose 221 H POC Glucose 261 H 254 H Hemoglobin A1c Lactic Acid Calcium 7.1 L Phosphorus TIBC Transferrin Ferritin AST Total Creatine Kinase Troponin T NT-Pro-B Natriuret Pep Serum Total Protein Total Protein Albumin PEP Interpretation Triglycerides Cholesterol LDL Cholesterol Direct Urine Creatinine Urine Microalbumin Urine Chloride Urine Total Protein [place] Screen [place] Titer Miscellaneous Test Crossmatch 03/27/18 03/27/18 03/27/18 03:35 03:35 05:20 WBC 12.3 H RBC 3.05 L Hgb 8.3 L Hct 25.3 L D MCV 83 L MCH 27 L MCHC RDW Plt Count Lymph % (Auto) [place] % (Auto) 8.6 H Lymph # [place] # 1.1 H Seg Neutrophils % 76.5 H Seg Neuts % (Manual) Lymphocytes % (Manual) Monocytes % (Manual) Eosinophils % (Manual) Basophils % (Manual) Seg Neutrophils # 9.4 H Lymphocytes # (Manual) Monocytes # (Manual) POC ABG pH POC ABG pCO2 POC ABG pO2 VBG pH Sodium Potassium Chloride 112.6 H Carbon Dioxide BUN 36 H Creatinine 2.1 H Glucose 244 H POC Glucose 263 H Hemoglobin A1c Lactic Acid Calcium 7.1 L Phosphorus TIBC Transferrin Ferritin AST 44 H Total Creatine Kinase Troponin T NT-Pro-B Natriuret Pep Serum Total Protein Total Protein 5.1 L D Albumin 2.1 L PEP Interpretation Triglycerides Cholesterol LDL Cholesterol Direct Urine Creatinine Urine Microalbumin Urine Chloride Urine Total Protein [place] Screen [place] Titer Miscellaneous Test Crossmatch 03/27/18 03/27/18 03/27/18 08:22 13:00 14:06 WBC RBC Hgb Hct MCV MCH MCHC RDW Plt Count Lymph % (Auto) [place] % (Auto) Lymph # [place] # Seg Neutrophils % Seg Neuts % (Manual) Lymphocytes % (Manual) Monocytes % (Manual) Eosinophils % (Manual) Basophils % (Manual) Seg Neutrophils # Lymphocytes # (Manual) Monocytes # (Manual) POC ABG pH POC ABG pCO2 34.7 L POC ABG pO2 VBG pH Sodium Potassium Chloride Carbon Dioxide BUN Creatinine Glucose POC Glucose 306 H 233 H Hemoglobin A1c Lactic Acid Calcium Phosphorus TIBC Transferrin Ferritin AST Total Creatine Kinase Troponin T NT-Pro-B Natriuret Pep Serum Total Protein Total Protein Albumin PEP Interpretation Triglycerides Cholesterol LDL Cholesterol Direct Urine Creatinine Urine Microalbumin Urine Chloride Urine Total Protein [place] Screen [place] Titer Miscellaneous Test Crossmatch 03/27/18 03/27/18 03/27/18 16:15 18:11 21:44 WBC RBC Hgb Hct MCV MCH MCHC RDW Plt Count Lymph % (Auto) [place] % (Auto) Lymph # [place] # Seg Neutrophils % Seg Neuts % (Manual) Lymphocytes % (Manual) Monocytes % (Manual) Eosinophils % (Manual) Basophils % (Manual) Seg Neutrophils # Lymphocytes # (Manual) Monocytes # (Manual) POC ABG pH POC ABG pCO2 POC ABG pO2 VBG pH Sodium Potassium Chloride Carbon Dioxide BUN Creatinine Glucose POC Glucose 243 H 226 H 224 H Hemoglobin A1c Lactic Acid Calcium Phosphorus TIBC Transferrin Ferritin AST Total Creatine Kinase Troponin T NT-Pro-B Natriuret Pep Serum Total Protein Total Protein Albumin PEP Interpretation Triglycerides Cholesterol LDL Cholesterol Direct Urine Creatinine Urine Microalbumin Urine Chloride Urine Total Protein [place] Screen [place] Titer Miscellaneous Test Crossmatch 03/28/18 03/28/18 03/28/18 02:07 04:35 04:35 WBC RBC Hgb Hct MCV MCH MCHC RDW Plt Count Lymph % (Auto) [place] % (Auto) Lymph # [place] # Seg Neutrophils % Seg Neuts % (Manual) Lymphocytes % (Manual) Monocytes % (Manual) Eosinophils % (Manual) Basophils % (Manual) Seg Neutrophils # Lymphocytes # (Manual) Monocytes # (Manual) POC ABG pH POC ABG pCO2 POC ABG pO2 VBG pH Sodium Potassium Chloride Carbon Dioxide BUN Creatinine Glucose POC Glucose 220 H Hemoglobin A1c Lactic Acid Calcium Phosphorus TIBC 115 L Transferrin 94 L Ferritin 412.1 H AST Total Creatine Kinase Troponin T NT-Pro-B Natriuret Pep Serum Total Protein Total Protein Albumin PEP Interpretation Triglycerides Cholesterol LDL Cholesterol Direct Urine Creatinine Urine Microalbumin Urine Chloride Urine Total Protein [place] Screen [place] Titer Miscellaneous Test Crossmatch 03/28/18 03/28/18 03/28/18 05:27 09:52 10:59 WBC RBC 3.22 L Hgb 9.1 L Hct 26.8 L MCV 83 L MCH MCHC RDW Plt Count 134 L Lymph % (Auto) [place] % (Auto) Lymph # [place] # Seg Neutrophils % Seg Neuts % (Manual) Lymphocytes % (Manual) Monocytes % (Manual) Eosinophils % (Manual) Basophils % (Manual) Seg Neutrophils # Lymphocytes # (Manual) Monocytes # (Manual) POC ABG pH POC ABG pCO2 POC ABG pO2 VBG pH Sodium Potassium Chloride Carbon Dioxide BUN Creatinine Glucose POC Glucose 280 H 332 H Hemoglobin A1c Lactic Acid Calcium Phosphorus TIBC Transferrin Ferritin AST Total Creatine Kinase Troponin T NT-Pro-B Natriuret Pep Serum Total Protein Total Protein Albumin PEP Interpretation Triglycerides Cholesterol LDL Cholesterol Direct Urine Creatinine Urine Microalbumin Urine Chloride Urine Total Protein [place] Screen [place] Titer Miscellaneous Test Crossmatch 03/28/18 03/28/18 03/28/18 10:59 14:39 17:47 WBC RBC Hgb Hct MCV MCH MCHC RDW Plt Count Lymph % (Auto) [place] % (Auto) Lymph # [place] # Seg Neutrophils % Seg Neuts % (Manual) Lymphocytes % (Manual) Monocytes % (Manual) Eosinophils % (Manual) Basophils % (Manual) Seg Neutrophils # Lymphocytes # (Manual) Monocytes # (Manual) POC ABG pH POC ABG pCO2 POC ABG pO2 VBG pH Sodium 136 L Potassium Chloride Carbon Dioxide BUN 29 H Creatinine Glucose 310 H POC Glucose 250 H 132 H Hemoglobin A1c Lactic Acid Calcium 7.0 L Phosphorus TIBC Transferrin Ferritin AST Total Creatine Kinase Troponin T NT-Pro-B Natriuret Pep Serum Total Protein Total Protein Albumin PEP Interpretation Triglycerides Cholesterol LDL Cholesterol Direct Urine Creatinine Urine Microalbumin Urine Chloride Urine Total Protein [place] Screen [place] Titer Miscellaneous Test Crossmatch 03/29/18 03/29/18 03/29/18 01:49 04:23 05:45 WBC RBC 3.13 L Hgb 8.8 L Hct 25.8 L MCV 82 L MCH MCHC RDW 12.7 L Plt Count 132 L Lymph % (Auto) 10.8 L [place] % (Auto) 9.1 H Lymph # 1.0 L [place] # Seg Neutrophils % 79.1 H Seg Neuts % (Manual) Lymphocytes % (Manual) Monocytes % (Manual) Eosinophils % (Manual) Basophils % (Manual) Seg Neutrophils # Lymphocytes # (Manual) Monocytes # (Manual) POC ABG pH POC ABG pCO2 POC ABG pO2 VBG pH Sodium 134 L Potassium Chloride Carbon Dioxide BUN 27 H Creatinine Glucose 172 H POC Glucose 122 H Hemoglobin A1c Lactic Acid Calcium 7.1 L Phosphorus TIBC Transferrin Ferritin AST Total Creatine Kinase Troponin T NT-Pro-B Natriuret Pep Serum Total Protein Total Protein Albumin PEP Interpretation Triglycerides Cholesterol LDL Cholesterol Direct Urine Creatinine Urine Microalbumin Urine Chloride Urine Total Protein [place] Screen [place] Titer Miscellaneous Test Crossmatch 03/29/18 03/29/18 03/29/18 05:57 09:19 13:09 WBC RBC Hgb Hct MCV MCH MCHC RDW Plt Count Lymph % (Auto) [place] % (Auto) Lymph # [place] # Seg Neutrophils % Seg Neuts % (Manual) Lymphocytes % (Manual) Monocytes % (Manual) Eosinophils % (Manual) Basophils % (Manual) Seg Neutrophils # Lymphocytes # (Manual) Monocytes # (Manual) POC ABG pH POC ABG pCO2 POC ABG pO2 VBG pH Sodium Potassium Chloride Carbon Dioxide BUN Creatinine Glucose POC Glucose 224 H 316 H 345 H Hemoglobin A1c Lactic Acid Calcium Phosphorus TIBC Transferrin Ferritin AST Total Creatine Kinase Troponin T NT-Pro-B Natriuret Pep Serum Total Protein Total Protein Albumin PEP Interpretation Triglycerides Cholesterol LDL Cholesterol Direct Urine Creatinine Urine Microalbumin Urine Chloride Urine Total Protein [place] Screen [place] Titer Miscellaneous Test Crossmatch 03/29/18 03/29/18 03/29/18 16:27 22:26 22:36 WBC RBC Hgb Hct MCV MCH MCHC RDW Plt Count Lymph % (Auto) [place] % (Auto) Lymph # [place] # Seg Neutrophils % Seg Neuts % (Manual) Lymphocytes % (Manual) Monocytes % (Manual) Eosinophils % (Manual) Basophils % (Manual) Seg Neutrophils # Lymphocytes # (Manual) Monocytes # (Manual) POC ABG pH POC ABG pCO2 POC ABG pO2 VBG pH Sodium Potassium Chloride Carbon Dioxide BUN Creatinine Glucose POC Glucose 210 H < 40 L 172 H Hemoglobin A1c Lactic Acid Calcium Phosphorus TIBC Transferrin Ferritin AST Total Creatine Kinase Troponin T NT-Pro-B Natriuret Pep Serum Total Protein Total Protein Albumin PEP Interpretation Triglycerides Cholesterol LDL Cholesterol Direct Urine Creatinine Urine Microalbumin Urine Chloride Urine Total Protein [place] Screen [place] Titer Miscellaneous Test Crossmatch 03/30/18 03/30/18 03/30/18 00:07 05:12 06:39 WBC RBC 2.95 L Hgb 8.3 L Hct 24.6 L MCV 83 L MCH MCHC RDW 12.9 L Plt Count Lymph % (Auto) [place] % (Auto) 13.5 H Lymph # [place] # 0.9 H Seg Neutrophils % Seg Neuts % (Manual) Lymphocytes % (Manual) Monocytes % (Manual) Eosinophils % (Manual) Basophils % (Manual) Seg Neutrophils # Lymphocytes # (Manual) Monocytes # (Manual) POC ABG pH POC ABG pCO2 POC ABG pO2 VBG pH Sodium Potassium Chloride Carbon Dioxide BUN Creatinine Glucose POC Glucose 69 L 213 H Hemoglobin A1c Lactic Acid Calcium Phosphorus TIBC Transferrin Ferritin AST Total Creatine Kinase Troponin T NT-Pro-B Natriuret Pep Serum Total Protein Total Protein Albumin PEP Interpretation Triglycerides Cholesterol LDL Cholesterol Direct Urine Creatinine Urine Microalbumin Urine Chloride Urine Total Protein [place] Screen [place] Titer Miscellaneous Test Crossmatch 03/30/18 03/30/18 03/30/18 06:39 10:06 13:59 WBC RBC Hgb Hct MCV MCH MCHC RDW Plt Count Lymph % (Auto) [place] % (Auto) Lymph # [place] # Seg Neutrophils % Seg Neuts % (Manual) Lymphocytes % (Manual) Monocytes % (Manual) Eosinophils % (Manual) Basophils % (Manual) Seg Neutrophils # Lymphocytes # (Manual) Monocytes # (Manual) POC ABG pH POC ABG pCO2 POC ABG pO2 VBG pH Sodium 133 L Potassium 3.5 L D Chloride 95.6 L Carbon Dioxide BUN 34 H Creatinine Glucose 241 H POC Glucose 368 H 237 H Hemoglobin A1c Lactic Acid Calcium 7.3 L Phosphorus TIBC Transferrin Ferritin AST Total Creatine Kinase Troponin T NT-Pro-B Natriuret Pep Serum Total Protein Total Protein Albumin PEP Interpretation Triglycerides Cholesterol LDL Cholesterol Direct Urine Creatinine Urine Microalbumin Urine Chloride Urine Total Protein [place] Screen [place] Titer Miscellaneous Test Crossmatch 03/30/18 03/30/18 03/30/18 16:39 20:47 21:30 WBC RBC Hgb Hct MCV MCH MCHC RDW Plt Count Lymph % (Auto) [place] % (Auto) Lymph # [place] # Seg Neutrophils % Seg Neuts % (Manual) Lymphocytes % (Manual) Monocytes % (Manual) Eosinophils % (Manual) Basophils % (Manual) Seg Neutrophils # Lymphocytes # (Manual) Monocytes # (Manual) POC ABG pH POC ABG pCO2 POC ABG pO2 VBG pH Sodium Potassium Chloride Carbon Dioxide BUN Creatinine Glucose POC Glucose 176 H 60 L 113 H Hemoglobin A1c Lactic Acid Calcium Phosphorus TIBC Transferrin Ferritin AST Total Creatine Kinase Troponin T NT-Pro-B Natriuret Pep Serum Total Protein Total Protein Albumin PEP Interpretation Triglycerides Cholesterol LDL Cholesterol Direct Urine Creatinine Urine Microalbumin Urine Chloride Urine Total Protein [place] Screen [place]A Titer Miscellaneous Test Crossmatch 03/31/18 03/31/18 03/31/18 02:07 06:45 07:24 WBC RBC 3.06 L Hgb 8.6 L Hct 25.3 L MCV 83 L MCH MCHC RDW 12.7 L Plt Count Lymph % (Auto) [place] % (Auto) Lymph # [place] # Seg Neutrophils % Seg Neuts % (Manual) 73.0 H Lymphocytes % (Manual) 6.0 L Monocytes % (Manual) 21.0 H Eosinophils % (Manual) Basophils % (Manual) Seg Neutrophils # Lymphocytes # (Manual) 0.4 L Monocytes # (Manual) 1.4 H POC ABG pH POC ABG pCO2 POC ABG pO2 VBG pH Sodium Potassium Chloride Carbon Dioxide BUN Creatinine Glucose POC Glucose 140 H 260 H Hemoglobin A1c Lactic Acid Calcium Phosphorus TIBC Transferrin Ferritin AST Total Creatine Kinase Troponin T NT-Pro-B Natriuret Pep Serum Total Protein Total Protein Albumin PEP Interpretation Triglycerides Cholesterol LDL Cholesterol Direct Urine Creatinine Urine Microalbumin Urine Chloride Urine Total Protein [place] Screen [place] Titer Miscellaneous Test Crossmatch 03/31/18 03/31/18 03/31/18 07:24 11:51 13:08 WBC RBC Hgb Hct MCV MCH MCHC RDW Plt Count Lymph % (Auto) [place] % (Auto) Lymph # [place] # Seg Neutrophils % Seg Neuts % (Manual) Lymphocytes % (Manual) Monocytes % (Manual) Eosinophils % (Manual) Basophils % (Manual) Seg Neutrophils # Lymphocytes # (Manual) Monocytes # (Manual) POC ABG pH POC ABG pCO2 POC ABG pO2 VBG pH Sodium 134 L Potassium Chloride Carbon Dioxide BUN 36 H Creatinine 1.8 H Glucose 271 H POC Glucose > 500 H > 500 H Hemoglobin A1c Lactic Acid Calcium 7.3 L Phosphorus TIBC Transferrin Ferritin AST Total Creatine Kinase Troponin T NT-Pro-B Natriuret Pep Serum Total Protein Total Protein Albumin PEP Interpretation Triglycerides Cholesterol LDL Cholesterol Direct Urine Creatinine Urine Microalbumin Urine Chloride Urine Total Protein [place] Screen [place] Titer Miscellaneous Test Crossmatch 03/31/18 03/31/18 03/31/18 14:00 16:15 16:29 WBC RBC Hgb Hct MCV MCH MCHC RDW Plt Count Lymph % (Auto) [place] % (Auto) Lymph # [place] # Seg Neutrophils % Seg Neuts % (Manual) Lymphocytes % (Manual) Monocytes % (Manual) Eosinophils % (Manual) Basophils % (Manual) Seg Neutrophils # Lymphocytes # (Manual) Monocytes # (Manual) POC ABG pH POC ABG pCO2 POC ABG pO2 VBG pH Sodium Potassium Chloride Carbon Dioxide BUN Creatinine Glucose POC Glucose > 500 H 405 H 424 H Hemoglobin A1c Lactic Acid Calcium Phosphorus TIBC Transferrin Ferritin AST Total Creatine Kinase Troponin T NT-Pro-B Natriuret Pep Serum Total Protein Total Protein Albumin PEP Interpretation Triglycerides Cholesterol LDL Cholesterol Direct Urine Creatinine Urine Microalbumin Urine Chloride Urine Total Protein [place] Screen [place] Titer Miscellaneous Test Crossmatch 03/31/18 04/01/18 04/01/18 21:14 00:21 05:51 WBC RBC 2.55 L Hgb 7.1 L Hct 21.2 L MCV 83 L MCH MCHC RDW 12.5 L Plt Count Lymph % (Auto) [place] % (Auto) Lymph # [place] # Seg Neutrophils % Seg Neuts % (Manual) Lymphocytes % (Manual) Monocytes % (Manual) 22.0 H Eosinophils % (Manual) Basophils % (Manual) Seg Neutrophils # Lymphocytes # (Manual) Monocytes # (Manual) 1.1 H POC ABG pH POC ABG pCO2 POC ABG pO2 VBG pH Sodium Potassium Chloride Carbon Dioxide BUN Creatinine Glucose POC Glucose 393 H 384 H Hemoglobin A1c Lactic Acid Calcium Phosphorus TIBC Transferrin Ferritin AST Total Creatine Kinase Troponin T NT-Pro-B Natriuret Pep Serum Total Protein Total Protein Albumin PEP Interpretation Triglycerides Cholesterol LDL Cholesterol Direct Urine Creatinine Urine Microalbumin Urine Chloride Urine Total Protein [place] Screen [place] Titer Miscellaneous Test Crossmatch 04/01/18 04/01/18 04/01/18 05:51 06:52 11:13 WBC RBC Hgb Hct MCV MCH MCHC RDW Plt Count Lymph % (Auto) [place] % (Auto) Lymph # [place] # Seg Neutrophils % Seg Neuts % (Manual) Lymphocytes % (Manual) Monocytes % (Manual) Eosinophils % (Manual) Basophils % (Manual) Seg Neutrophils # Lymphocytes # (Manual) Monocytes # (Manual) POC ABG pH POC ABG pCO2 POC ABG pO2 VBG pH Sodium Potassium Chloride Carbon Dioxide BUN 35 H Creatinine Glucose 120 H POC Glucose 114 H Hemoglobin A1c Lactic Acid Calcium 7.3 L Phosphorus TIBC Transferrin Ferritin AST Total Creatine Kinase Troponin T NT-Pro-B Natriuret Pep Serum Total Protein Total Protein Albumin PEP Interpretation Triglycerides Cholesterol LDL Cholesterol Direct Urine Creatinine Urine Microalbumin Urine Chloride Urine Total Protein [place] Screen [place] Titer Miscellaneous Test Crossmatch See Detail 04/01/18 04/01/18 04/01/18 11:16 12:06 16:04 WBC RBC Hgb 7.3 L Hct 21.5 L MCV MCH MCHC RDW Plt Count Lymph % (Auto) [place] % (Auto) Lymph # [place] # Seg Neutrophils % Seg Neuts % (Manual) Lymphocytes % (Manual) Monocytes % (Manual) Eosinophils % (Manual) Basophils % (Manual) Seg Neutrophils # Lymphocytes # (Manual) Monocytes # (Manual) POC ABG pH POC ABG pCO2 POC ABG pO2 VBG pH Sodium Potassium Chloride Carbon Dioxide BUN Creatinine Glucose POC Glucose 223 H 225 H Hemoglobin A1c Lactic Acid Calcium Phosphorus TIBC Transferrin Ferritin AST Total Creatine Kinase Troponin T NT-Pro-B Natriuret Pep Serum Total Protein Total Protein Albumin PEP Interpretation Triglycerides Cholesterol LDL Cholesterol Direct Urine Creatinine Urine Microalbumin Urine Chloride Urine Total Protein [place] Screen [place] Titer Miscellaneous Test Crossmatch 04/01/18 04/01/18 04/01/18 16:46 19:47 21:15 WBC RBC Hgb 7.7 L Hct 23.5 L MCV MCH MCHC RDW Plt Count Lymph % (Auto) [place] % (Auto) Lymph # [place] # Seg Neutrophils % Seg Neuts % (Manual) Lymphocytes % (Manual) Monocytes % (Manual) Eosinophils % (Manual) Basophils % (Manual) Seg Neutrophils # Lymphocytes # (Manual) Monocytes # (Manual) POC ABG pH POC ABG pCO2 POC ABG pO2 VBG pH Sodium Potassium Chloride Carbon Dioxide BUN Creatinine Glucose POC Glucose 219 H 380 H Hemoglobin A1c Lactic Acid Calcium Phosphorus TIBC Transferrin Ferritin AST Total Creatine Kinase Troponin T NT-Pro-B Natriuret Pep Serum Total Protein Total Protein Albumin PEP Interpretation Triglycerides Cholesterol LDL Cholesterol Direct Urine Creatinine Urine Microalbumin Urine Chloride Urine Total Protein [place] Screen [place] Titer Miscellaneous Test Crossmatch 04/02/18 04/02/18 04/02/18 05:47 06:57 07:52 WBC RBC 2.80 L Hgb 7.7 L Hct 23.5 L MCV MCH MCHC RDW Plt Count Lymph % (Auto) [place] % (Auto) Lymph # [place] # Seg Neutrophils % Seg Neuts % (Manual) Lymphocytes % (Manual) Monocytes % (Manual) 25.0 H Eosinophils % (Manual) Basophils % (Manual) Seg Neutrophils # Lymphocytes # (Manual) 1.1 L Monocytes # (Manual) 1.3 H POC ABG pH POC ABG pCO2 POC ABG pO2 VBG pH Sodium Potassium Chloride Carbon Dioxide BUN Creatinine Glucose POC Glucose 49 L 111 H Hemoglobin A1c Lactic Acid Calcium Phosphorus TIBC Transferrin Ferritin AST Total Creatine Kinase Troponin T NT-Pro-B Natriuret Pep Serum Total Protein Total Protein Albumin PEP Interpretation Triglycerides Cholesterol LDL Cholesterol Direct Urine Creatinine Urine Microalbumin Urine Chloride Urine Total Protein [place] Screen [place] Titer Miscellaneous Test Crossmatch 04/02/18 04/02/18 04/02/18 07:52 12:36 16:36 WBC RBC Hgb Hct MCV MCH MCHC RDW Plt Count Lymph % (Auto) [place] % (Auto) Lymph # [place] # Seg Neutrophils % Seg Neuts % (Manual) Lymphocytes % (Manual) Monocytes % (Manual) Eosinophils % (Manual) Basophils % (Manual) Seg Neutrophils # Lymphocytes # (Manual) Monocytes # (Manual) POC ABG pH POC ABG pCO2 POC ABG pO2 VBG pH Sodium Potassium Chloride Carbon Dioxide BUN 28 H Creatinine Glucose 115 H POC Glucose 259 H 297 H Hemoglobin A1c Lactic Acid Calcium 7.3 L Phosphorus TIBC Transferrin Ferritin AST Total Creatine Kinase Troponin T NT-Pro-B Natriuret Pep Serum Total Protein Total Protein Albumin PEP Interpretation Triglycerides Cholesterol LDL Cholesterol Direct Urine Creatinine Urine Microalbumin Urine Chloride Urine Total Protein [place] Screen [place] Titer Miscellaneous Test Crossmatch 04/02/18 04/03/18 04/03/18 22:01 04:20 04:46 WBC RBC Hgb Hct MCV MCH MCHC RDW Plt Count Lymph % (Auto) [place] % (Auto) Lymph # [place] # Seg Neutrophils % Seg Neuts % (Manual) Lymphocytes % (Manual) Monocytes % (Manual) Eosinophils % (Manual) Basophils % (Manual) Seg Neutrophils # Lymphocytes # (Manual) Monocytes # (Manual) POC ABG pH POC ABG pCO2 POC ABG pO2 VBG pH Sodium Potassium Chloride Carbon Dioxide BUN Creatinine Glucose POC Glucose 206 H < 40 L 64 L Hemoglobin A1c Lactic Acid Calcium Phosphorus TIBC Transferrin Ferritin AST Total Creatine Kinase Troponin T NT-Pro-B Natriuret Pep Serum Total Protein Total Protein Albumin PEP Interpretation Triglycerides Cholesterol LDL Cholesterol Direct Urine Creatinine Urine Microalbumin Urine Chloride Urine Total Protein [place] Screen [place] Titer Miscellaneous Test Crossmatch 04/03/18 04/03/18 04/03/18 05:46 05:46 05:57 WBC RBC 2.72 L Hgb 7.6 L Hct 22.4 L MCV 83 L MCH MCHC RDW Plt Count Lymph % (Auto) [place] % (Auto) Lymph # [place] # Seg Neutrophils % Seg Neuts % (Manual) Lymphocytes % (Manual) 13.0 L Monocytes % (Manual) 19.0 H Eosinophils % (Manual) Basophils % (Manual) Seg Neutrophils # Lymphocytes # (Manual) 0.9 L Monocytes # (Manual) 1.3 H POC ABG pH POC ABG pCO2 POC ABG pO2 VBG pH Sodium Potassium Chloride 110.7 H Carbon Dioxide BUN 24 H Creatinine Glucose 45 L POC Glucose < 40 L Hemoglobin A1c Lactic Acid Calcium 7.3 L Phosphorus TIBC Transferrin Ferritin AST Total Creatine Kinase Troponin T NT-Pro-B Natriuret Pep Serum Total Protein Total Protein Albumin PEP Interpretation Triglycerides Cholesterol LDL Cholesterol Direct Urine Creatinine Urine Microalbumin Urine Chloride Urine Total Protein [place] Screen [place] Titer Miscellaneous Test Crossmatch 04/03/18 04/03/18 04/03/18 07:04 09:17 11:34 WBC RBC Hgb Hct MCV MCH MCHC RDW Plt Count Lymph % (Auto) [place] % (Auto) Lymph # [place] # Seg Neutrophils % Seg Neuts % (Manual) Lymphocytes % (Manual) Monocytes % (Manual) Eosinophils % (Manual) Basophils % (Manual) Seg Neutrophils # Lymphocytes # (Manual) Monocytes # (Manual) POC ABG pH POC ABG pCO2 POC ABG pO2 VBG pH Sodium Potassium Chloride Carbon Dioxide BUN Creatinine Glucose POC Glucose 44 L 107 H 196 H Hemoglobin A1c Lactic Acid Calcium Phosphorus TIBC Transferrin Ferritin AST Total Creatine Kinase Troponin T NT-Pro-B Natriuret Pep Serum Total Protein Total Protein Albumin PEP Interpretation Triglycerides Cholesterol LDL Cholesterol Direct Urine Creatinine Urine Microalbumin Urine Chloride Urine Total Protein [place] Screen [place] Titer Miscellaneous Test Crossmatch 04/03/18 04/03/18 04/04/18 16:48 20:25 06:05 WBC RBC 2.49 L Hgb 6.9 L Hct 20.8 L MCV 83 L MCH MCHC RDW Plt Count Lymph % (Auto) [place] % (Auto) Lymph # [place] # Seg Neutrophils % Seg Neuts % (Manual) Lymphocytes % (Manual) Monocytes % (Manual) 23.0 H Eosinophils % (Manual) Basophils % (Manual) Seg Neutrophils # Lymphocytes # (Manual) 0.7 L Monocytes # (Manual) 1.2 H POC ABG pH POC ABG pCO2 POC ABG pO2 VBG pH Sodium Potassium Chloride Carbon Dioxide BUN Creatinine Glucose POC Glucose 251 H 211 H Hemoglobin A1c Lactic Acid Calcium Phosphorus TIBC Transferrin Ferritin AST Total Creatine Kinase Troponin T NT-Pro-B Natriuret Pep Serum Total Protein Total Protein Albumin PEP Interpretation Triglycerides Cholesterol LDL Cholesterol Direct Urine Creatinine Urine Microalbumin Urine Chloride Urine Total Protein [place] Screen [place] Titer Miscellaneous Test Crossmatch 04/04/18 04/04/18 04/04/18 06:05 06:06 20:14 WBC RBC Hgb Hct MCV MCH MCHC RDW Plt Count Lymph % (Auto) [place] % (Auto) Lymph # [place] # Seg Neutrophils % Seg Neuts % (Manual) Lymphocytes % (Manual) Monocytes % (Manual) Eosinophils % (Manual) Basophils % (Manual) Seg Neutrophils # Lymphocytes # (Manual) Monocytes # (Manual) POC ABG pH POC ABG pCO2 POC ABG pO2 VBG pH Sodium Potassium Chloride 109.8 H Carbon Dioxide BUN 22 H Creatinine 1.7 H Glucose 260 H POC Glucose 312 H Hemoglobin A1c Lactic Acid Calcium 7.2 L Phosphorus TIBC Transferrin Ferritin AST Total Creatine Kinase Troponin T NT-Pro-B Natriuret Pep Serum Total Protein Total Protein Albumin PEP Interpretation Triglycerides Cholesterol LDL Cholesterol Direct Urine Creatinine Urine Microalbumin Urine Chloride Urine Total Protein [place] Screen [place] Titer Miscellaneous Test Crossmatch See Detail 04/04/18 04/05/18 04/05/18 22:23 06:10 06:10 WBC RBC 2.97 L Hgb 8.6 L Hct 25.0 L MCV MCH MCHC RDW Plt Count Lymph % (Auto) [place] % (Auto) 15.9 H Lymph # [place] # 1.2 H Seg Neutrophils % Seg Neuts % (Manual) Lymphocytes % (Manual) Monocytes % (Manual) Eosinophils % (Manual) Basophils % (Manual) Seg Neutrophils # Lymphocytes # (Manual) Monocytes # (Manual) POC ABG pH POC ABG pCO2 POC ABG pO2 VBG pH Sodium Potassium Chloride 108.4 H Carbon Dioxide 20 L BUN Creatinine 1.9 H Glucose 42 L POC Glucose 116 H Hemoglobin A1c Lactic Acid Calcium 7.3 L Phosphorus TIBC Transferrin Ferritin AST Total Creatine Kinase Troponin T NT-Pro-B Natriuret Pep Serum Total Protein Total Protein 5.7 L Albumin 2.3 L PEP Interpretation Triglycerides Cholesterol LDL Cholesterol Direct Urine Creatinine Urine Microalbumin Urine Chloride Urine Total Protein [place] Screen [place] Titer Miscellaneous Test Crossmatch 04/05/18 04/05/18 04/05/18 06:18 06:20 12:17 WBC RBC Hgb Hct MCV MCH MCHC RDW Plt Count Lymph % (Auto) [place] % (Auto) Lymph # [place] # Seg Neutrophils % Seg Neuts % (Manual) Lymphocytes % (Manual) Monocytes % (Manual) Eosinophils % (Manual) Basophils % (Manual) Seg Neutrophils # Lymphocytes # (Manual) Monocytes # (Manual) POC ABG pH POC ABG pCO2 POC ABG pO2 VBG pH Sodium Potassium Chloride Carbon Dioxide BUN Creatinine Glucose POC Glucose 44 L 123 H Hemoglobin A1c Lactic Acid Calcium Phosphorus TIBC Transferrin Ferritin AST Total Creatine Kinase Troponin T NT-Pro-B Natriuret Pep Serum Total Protein Total Protein Albumin PEP Interpretation Triglycerides Cholesterol LDL Cholesterol Direct Urine Creatinine 112.0 H Urine Microalbumin Urine Chloride Urine Total Protein [place] Screen [place] Titer Miscellaneous Test Crossmatch 04/05/18 04/05/18 04/06/18 16:33 21:29 07:06 WBC RBC Hgb Hct MCV MCH MCHC RDW Plt Count Lymph % (Auto) [place] % (Auto) Lymph # [place] # Seg Neutrophils % Seg Neuts % (Manual) Lymphocytes % (Manual) Monocytes % (Manual) Eosinophils % (Manual) Basophils % (Manual) Seg Neutrophils # Lymphocytes # (Manual) Monocytes # (Manual) POC ABG pH POC ABG pCO2 POC ABG pO2 VBG pH Sodium Potassium Chloride Carbon Dioxide BUN Creatinine Glucose POC Glucose 268 H 207 H 42 L Hemoglobin A1c Lactic Acid Calcium Phosphorus TIBC Transferrin Ferritin AST Total Creatine Kinase Troponin T NT-Pro-B Natriuret Pep Serum Total Protein Total Protein Albumin PEP Interpretation Triglycerides Cholesterol LDL Cholesterol Direct Urine Creatinine Urine Microalbumin Urine Chloride Urine Total Protein [place] Screen [place] Titer Miscellaneous Test Crossmatch 04/06/18 04/06/18 04/06/18 11:54 16:40 21:14 WBC RBC Hgb Hct MCV MCH MCHC RDW Plt Count Lymph % (Auto) [place] % (Auto) Lymph # [place] # Seg Neutrophils % Seg Neuts % (Manual) Lymphocytes % (Manual) Monocytes % (Manual) Eosinophils % (Manual) Basophils % (Manual) Seg Neutrophils # Lymphocytes # (Manual) Monocytes # (Manual) POC ABG pH POC ABG pCO2 POC ABG pO2 VBG pH Sodium Potassium Chloride Carbon Dioxide BUN Creatinine Glucose POC Glucose 177 H 188 H 336 H Hemoglobin A1c Lactic Acid Calcium Phosphorus TIBC Transferrin Ferritin AST Total Creatine Kinase Troponin T NT-Pro-B Natriuret Pep Serum Total Protein Total Protein Albumin PEP Interpretation Triglycerides Cholesterol LDL Cholesterol Direct Urine Creatinine Urine Microalbumin Urine Chloride Urine Total Protein [place] Screen [place] Titer Miscellaneous Test Crossmatch 04/07/18 04/07/18 04/07/18 05:46 05:46 05:46 WBC RBC 2.92 L Hgb 8.2 L Hct 25.0 L MCV MCH MCHC RDW Plt Count Lymph % (Auto) [place] % (Auto) 12.9 H Lymph # 1.1 L [place] # Seg Neutrophils % Seg Neuts % (Manual) Lymphocytes % (Manual) Monocytes % (Manual) Eosinophils % (Manual) Basophils % (Manual) Seg Neutrophils # Lymphocytes # (Manual) Monocytes # (Manual) POC ABG pH POC ABG pCO2 POC ABG pO2 VBG pH Sodium 131 L D Potassium Chloride 96.6 L Carbon Dioxide 19 L BUN 26 H Creatinine 2.7 H Glucose 247 H POC Glucose Hemoglobin A1c Lactic Acid Calcium 7.7 L Phosphorus TIBC Transferrin Ferritin AST Total Creatine Kinase Troponin T NT-Pro-B Natriuret Pep 1858 H Serum Total Protein Total Protein Albumin PEP Interpretation Triglycerides Cholesterol LDL Cholesterol Direct Urine Creatinine Urine Microalbumin Urine Chloride Urine Total Protein [place] Screen [place] Titer Miscellaneous Test Crossmatch 04/07/18 04/07/18 04/07/18 06:00 11:31 14:00 WBC RBC Hgb Hct MCV MCH MCHC RDW Plt Count Lymph % (Auto) [place] % (Auto) Lymph # [place] # Seg Neutrophils % Seg Neuts % (Manual) Lymphocytes % (Manual) Monocytes % (Manual) Eosinophils % (Manual) Basophils % (Manual) Seg Neutrophils # Lymphocytes # (Manual) Monocytes # (Manual) POC ABG pH POC ABG pCO2 POC ABG pO2 VBG pH Sodium Potassium Chloride Carbon Dioxide BUN Creatinine Glucose POC Glucose 288 H 373 H Hemoglobin A1c Lactic Acid Calcium Phosphorus TIBC Transferrin Ferritin AST Total Creatine Kinase Troponin T NT-Pro-B Natriuret Pep Serum Total Protein Total Protein Albumin PEP Interpretation Triglycerides Cholesterol LDL Cholesterol Direct Urine Creatinine 76.8 H Urine Microalbumin Urine Chloride 91.4 L Urine Total Protein [place] Screen [place] Titer Miscellaneous Test Crossmatch 04/07/18 04/07/18 04/07/18 16:12 18:32 22:00 WBC RBC Hgb Hct MCV MCH MCHC RDW Plt Count Lymph % (Auto) [place] % (Auto) Lymph # [place] # Seg Neutrophils % Seg Neuts % (Manual) Lymphocytes % (Manual) Monocytes % (Manual) Eosinophils % (Manual) Basophils % (Manual) Seg Neutrophils # Lymphocytes # (Manual) Monocytes # (Manual) POC ABG pH POC ABG pCO2 POC ABG pO2 VBG pH Sodium Potassium Chloride Carbon Dioxide BUN Creatinine Glucose POC Glucose 280 H 269 H 145 H Hemoglobin A1c Lactic Acid Calcium Phosphorus TIBC Transferrin Ferritin AST Total Creatine Kinase Troponin T NT-Pro-B Natriuret Pep Serum Total Protein Total Protein Albumin PEP Interpretation Triglycerides Cholesterol LDL Cholesterol Direct Urine Creatinine Urine Microalbumin Urine Chloride Urine Total Protein [place] Screen [place] Titer Miscellaneous Test Crossmatch 04/08/18 04/08/18 04/08/18 05:38 05:38 06:08 WBC RBC 2.76 L Hgb 7.8 L Hct 23.7 L MCV MCH MCHC RDW Plt Count Lymph % (Auto) [place] % (Auto) 14.7 H Lymph # [place] # 0.9 H Seg Neutrophils % Seg Neuts % (Manual) Lymphocytes % (Manual) Monocytes % (Manual) Eosinophils % (Manual) Basophils % (Manual) Seg Neutrophils # Lymphocytes # (Manual) Monocytes # (Manual) POC ABG pH POC ABG pCO2 POC ABG pO2 VBG pH Sodium 146 H D Potassium Chloride 113.3 H Carbon Dioxide 21 L BUN 28 H Creatinine 3.2 H Glucose 113 H POC Glucose 119 H Hemoglobin A1c Lactic Acid Calcium 8.0 L Phosphorus TIBC Transferrin Ferritin AST Total Creatine Kinase Troponin T NT-Pro-B Natriuret Pep Serum Total Protein Total Protein 6.0 L Albumin 2.9 L PEP Interpretation Triglycerides Cholesterol LDL Cholesterol Direct Urine Creatinine Urine Microalbumin Urine Chloride Urine Total Protein [place] Screen [place] Titer Miscellaneous Test Crossmatch 04/08/18 04/08/18 04/08/18 12:00 17:07 17:30 WBC RBC Hgb Hct MCV MCH MCHC RDW Plt Count Lymph % (Auto) [place] % (Auto) Lymph # [place] # Seg Neutrophils % Seg Neuts % (Manual) Lymphocytes % (Manual) Monocytes % (Manual) Eosinophils % (Manual) Basophils % (Manual) Seg Neutrophils # Lymphocytes # (Manual) Monocytes # (Manual) POC ABG pH POC ABG pCO2 POC ABG pO2 VBG pH Sodium Potassium Chloride Carbon Dioxide BUN Creatinine Glucose POC Glucose 232 H 230 H Hemoglobin A1c Lactic Acid Calcium Phosphorus TIBC Transferrin Ferritin AST Total Creatine Kinase Troponin T NT-Pro-B Natriuret Pep Serum Total Protein Total Protein Albumin PEP Interpretation Triglycerides Cholesterol LDL Cholesterol Direct Urine Creatinine 63.0 H Urine Microalbumin 206.9 H Urine Chloride Urine Total Protein 288 H [place] Screen [place] Titer Miscellaneous Test Crossmatch 04/08/18 04/09/18 04/09/18 21:06 06:47 10:08 WBC RBC Hgb Hct MCV MCH MCHC RDW Plt Count Lymph % (Auto) [place] % (Auto) Lymph # [place] # Seg Neutrophils % Seg Neuts % (Manual) Lymphocytes % (Manual) Monocytes % (Manual) Eosinophils % (Manual) Basophils % (Manual) Seg Neutrophils # Lymphocytes # (Manual) Monocytes # (Manual) POC ABG pH POC ABG pCO2 POC ABG pO2 VBG pH Sodium Potassium Chloride 107.9 H Carbon Dioxide 21 L BUN 29 H Creatinine 3.1 H Glucose POC Glucose 243 H 54 L Hemoglobin A1c Lactic Acid Calcium 7.9 L Phosphorus TIBC Transferrin Ferritin AST Total Creatine Kinase Troponin T NT-Pro-B Natriuret Pep Serum Total Protein Total Protein Albumin PEP Interpretation Triglycerides Cholesterol LDL Cholesterol Direct Urine Creatinine Urine Microalbumin Urine Chloride Urine Total Protein [place] Screen [place] Titer Miscellaneous Test Crossmatch 04/09/18 04/09/18 04/09/18 12:11 16:25 21:14 WBC RBC Hgb Hct MCV MCH MCHC RDW Plt Count Lymph % (Auto) [place] % (Auto) Lymph # [place] # Seg Neutrophils % Seg Neuts % (Manual) Lymphocytes % (Manual) Monocytes % (Manual) Eosinophils % (Manual) Basophils % (Manual) Seg Neutrophils # Lymphocytes # (Manual) Monocytes # (Manual) POC ABG pH POC ABG pCO2 POC ABG pO2 VBG pH Sodium Potassium Chloride Carbon Dioxide BUN Creatinine Glucose POC Glucose 108 H 235 H 224 H Hemoglobin A1c Lactic Acid Calcium Phosphorus TIBC Transferrin Ferritin AST Total Creatine Kinase Troponin T NT-Pro-B Natriuret Pep Serum Total Protein Total Protein Albumin PEP Interpretation Triglycerides Cholesterol LDL Cholesterol Direct Urine Creatinine Urine Microalbumin Urine Chloride Urine Total Protein [place] Screen [place] Titer Miscellaneous Test Crossmatch 04/10/18 04/10/18 04/10/18 06:33 09:05 11:12 WBC RBC 2.96 L Hgb 8.4 L Hct 25.7 L MCV MCH MCHC RDW Plt Count Lymph % (Auto) [place] % (Auto) 13.4 H Lymph # 0.9 L [place] # Seg Neutrophils % Seg Neuts % (Manual) Lymphocytes % (Manual) Monocytes % (Manual) Eosinophils % (Manual) Basophils % (Manual) Seg Neutrophils # Lymphocytes # (Manual) Monocytes # (Manual) POC ABG pH POC ABG pCO2 POC ABG pO2 VBG pH Sodium Potassium Chloride Carbon Dioxide 20 L BUN 31 H Creatinine 3.1 H Glucose 145 H POC Glucose 112 H Hemoglobin A1c Lactic Acid Calcium 7.9 L Phosphorus TIBC Transferrin Ferritin AST Total Creatine Kinase Troponin T NT-Pro-B Natriuret Pep Serum Total Protein Total Protein Albumin PEP Interpretation Triglycerides Cholesterol LDL Cholesterol Direct Urine Creatinine Urine Microalbumin Urine Chloride Urine Total Protein [place] Screen [place] Titer Miscellaneous Test Crossmatch 04/10/18 04/10/18 04/10/18 11:57 17:21 17:21 WBC RBC Hgb Hct MCV MCH MCHC RDW Plt Count Lymph % (Auto) [place] % (Auto) Lymph # [place] # Seg Neutrophils % Seg Neuts % (Manual) Lymphocytes % (Manual) Monocytes % (Manual) Eosinophils % (Manual) Basophils % (Manual) Seg Neutrophils # Lymphocytes # (Manual) Monocytes # (Manual) POC ABG pH POC ABG pCO2 POC ABG pO2 VBG pH Sodium Potassium Chloride Carbon Dioxide BUN Creatinine Glucose POC Glucose 212 H Hemoglobin A1c Lactic Acid Calcium Phosphorus TIBC Transferrin Ferritin AST Total Creatine Kinase Troponin T NT-Pro-B Natriuret Pep Serum Total Protein 5.6 L Total Protein Albumin 2.6 L PEP Interpretation see below H Triglycerides Cholesterol LDL Cholesterol Direct Urine Creatinine Urine Microalbumin Urine Chloride Urine Total Protein [place] Screen Positive H [facility] Titer 1:40 H Miscellaneous Test Crossmatch 04/10/18 04/10/18 04/10/18 21:05 21:39 21:42 WBC RBC Hgb Hct MCV MCH MCHC RDW Plt Count Lymph % (Auto) [place] % (Auto) Lymph # [place] # Seg Neutrophils % Seg Neuts % (Manual) Lymphocytes % (Manual) Monocytes % (Manual) Eosinophils % (Manual) Basophils % (Manual) Seg Neutrophils # Lymphocytes # (Manual) Monocytes # (Manual) POC ABG pH POC ABG pCO2 POC ABG pO2 VBG pH Sodium Potassium Chloride Carbon Dioxide BUN Creatinine Glucose 67 L POC Glucose < 40 L 126 H Hemoglobin A1c Lactic Acid Calcium Phosphorus TIBC Transferrin Ferritin AST Total Creatine Kinase Troponin T NT-Pro-B Natriuret Pep Serum Total Protein Total Protein Albumin PEP Interpretation Triglycerides Cholesterol LDL Cholesterol Direct Urine Creatinine Urine Microalbumin Urine Chloride Urine Total Protein AZALEA Screen AZALEA Titer Miscellaneous Test Crossmatch 04/11/18 04/11/18 04/11/18 05:20 05:20 05:28 WBC RBC 2.93 L Hgb 8.1 L Hct 25.1 L MCV MCH MCHC RDW Plt Count Lymph % (Auto) [place] % (Auto) 13.5 H Lymph # 0.9 L [place] # Seg Neutrophils % Seg Neuts % (Manual) Lymphocytes % (Manual) Monocytes % (Manual) Eosinophils % (Manual) Basophils % (Manual) Seg Neutrophils # Lymphocytes # (Manual) Monocytes # (Manual) POC ABG pH POC ABG pCO2 POC ABG pO2 VBG pH Sodium Potassium 5.1 H Chloride Carbon Dioxide 21 L BUN 30 H Creatinine 2.9 H Glucose 286 H POC Glucose 320 H Hemoglobin A1c Lactic Acid Calcium 7.5 L Phosphorus TIBC Transferrin Ferritin AST Total Creatine Kinase Troponin T NT-Pro-B Natriuret Pep Serum Total Protein Total Protein Albumin PEP Interpretation Triglycerides Cholesterol LDL Cholesterol Direct Urine Creatinine Urine Microalbumin Urine Chloride Urine Total Protein [place]A Screen AZALEA Titer Miscellaneous Test Crossmatch 04/11/18 04/11/18 04/11/18 11:18 18:02 21:51 WBC RBC Hgb Hct MCV MCH MCHC RDW Plt Count Lymph % (Auto) [place] % (Auto) Lymph # [place] # Seg Neutrophils % Seg Neuts % (Manual) Lymphocytes % (Manual) Monocytes % (Manual) Eosinophils % (Manual) Basophils % (Manual) Seg Neutrophils # Lymphocytes # (Manual) Monocytes # (Manual) POC ABG pH POC ABG pCO2 POC ABG pO2 VBG pH Sodium Potassium Chloride Carbon Dioxide BUN Creatinine Glucose POC Glucose 302 H 269 H 183 H Hemoglobin A1c Lactic Acid Calcium Phosphorus TIBC Transferrin Ferritin AST Total Creatine Kinase Troponin T NT-Pro-B Natriuret Pep Serum Total Protein Total Protein Albumin PEP Interpretation Triglycerides Cholesterol LDL Cholesterol Direct Urine Creatinine Urine Microalbumin Urine Chloride Urine Total Protein AZALEA Screen AZALEA Titer Miscellaneous Test Crossmatch 04/11/18 04/12/18 04/12/18 Unknown 04:46 04:46 WBC RBC 2.75 L Hgb 7.8 L Hct 23.5 L MCV MCH MCHC RDW Plt Count Lymph % (Auto) [place] % (Auto) Lymph # [place] # Seg Neutrophils % Seg Neuts % (Manual) 73.0 H Lymphocytes % (Manual) 11.0 L Monocytes % (Manual) 15.0 H Eosinophils % (Manual) Basophils % (Manual) Seg Neutrophils # Lymphocytes # (Manual) 0.5 L Monocytes # (Manual) POC ABG pH POC ABG pCO2 POC ABG pO2 VBG pH Sodium Potassium Chloride Carbon Dioxide BUN 32 H Creatinine 3.1 H Glucose 64 L POC Glucose Hemoglobin A1c Lactic Acid Calcium 7.9 L Phosphorus TIBC Transferrin Ferritin AST Total Creatine Kinase Troponin T NT-Pro-B Natriuret Pep Serum Total Protein Total Protein Albumin PEP Interpretation Triglycerides Cholesterol LDL Cholesterol Direct Urine Creatinine Urine Microalbumin Urine Chloride Urine Total Protein [place] Screen [place]A Titer Miscellaneous Test Flexitest 1 H Crossmatch 04/12/18 04/12/18 04/12/18 05:32 13:21 16:16 WBC RBC Hgb Hct MCV MCH MCHC RDW Plt Count Lymph % (Auto) [place] % (Auto) Lymph # [place] # Seg Neutrophils % Seg Neuts % (Manual) Lymphocytes % (Manual) Monocytes % (Manual) Eosinophils % (Manual) Basophils % (Manual) Seg Neutrophils # Lymphocytes # (Manual) Monocytes # (Manual) POC ABG pH POC ABG pCO2 POC ABG pO2 VBG pH Sodium Potassium Chloride Carbon Dioxide BUN Creatinine Glucose POC Glucose 54 L 366 H 310 H Hemoglobin A1c Lactic Acid Calcium Phosphorus TIBC Transferrin Ferritin AST Total Creatine Kinase Troponin T NT-Pro-B Natriuret Pep Serum Total Protein Total Protein Albumin PEP Interpretation Triglycerides Cholesterol LDL Cholesterol Direct Urine Creatinine Urine Microalbumin Urine Chloride Urine Total Protein AZALEA Screen [place]ALEA Titer Miscellaneous Test Crossmatch 04/12/18 04/13/18 04/13/18 21:23 05:11 05:11 WBC RBC 2.81 L Hgb 8.0 L Hct 24.4 L MCV MCH MCHC RDW Plt Count Lymph % (Auto) [place] % (Auto) Lymph # [place] # Seg Neutrophils % Seg Neuts % (Manual) Lymphocytes % (Manual) Monocytes % (Manual) 14.0 H Eosinophils % (Manual) Basophils % (Manual) Seg Neutrophils # Lymphocytes # (Manual) 1.1 L Monocytes # (Manual) POC ABG pH POC ABG pCO2 POC ABG pO2 VBG pH Sodium Potassium Chloride Carbon Dioxide BUN 29 H Creatinine 2.8 H Glucose 73 L POC Glucose 201 H Hemoglobin A1c Lactic Acid Calcium 7.9 L Phosphorus TIBC Transferrin Ferritin AST Total Creatine Kinase Troponin T NT-Pro-B Natriuret Pep Serum Total Protein Total Protein Albumin PEP Interpretation Triglycerides Cholesterol LDL Cholesterol Direct Urine Creatinine Urine Microalbumin Urine Chloride Urine Total Protein AZ[place]A Screen [place]A Titer Miscellaneous Test Crossmatch 04/13/18 04/13/18 04/13/18 12:12 16:35 21:36 WBC RBC Hgb Hct MCV MCH MCHC RDW Plt Count Lymph % (Auto) [place] % (Auto) Lymph # [place] # Seg Neutrophils % Seg Neuts % (Manual) Lymphocytes % (Manual) Monocytes % (Manual) Eosinophils % (Manual) Basophils % (Manual) Seg Neutrophils # Lymphocytes # (Manual) Monocytes # (Manual) POC ABG pH POC ABG pCO2 POC ABG pO2 VBG pH Sodium Potassium Chloride Carbon Dioxide BUN Creatinine Glucose POC Glucose 200 H 168 H 164 H Hemoglobin A1c Lactic Acid Calcium Phosphorus TIBC Transferrin Ferritin AST Total Creatine Kinase Troponin T NT-Pro-B Natriuret Pep Serum Total Protein Total Protein Albumin PEP Interpretation Triglycerides Cholesterol LDL Cholesterol Direct Urine Creatinine Urine Microalbumin Urine Chloride Urine Total Protein AZALEA Screen AZALEA Titer Miscellaneous Test Crossmatch 04/14/18 04/14/18 04/14/18 06:06 07:45 07:45 WBC RBC 2.84 L Hgb 7.9 L Hct 24.2 L MCV MCH MCHC RDW Plt Count Lymph % (Auto) [place] % (Auto) Lymph # [place] # Seg Neutrophils % Seg Neuts % (Manual) Lymphocytes % (Manual) Monocytes % (Manual) 11.0 H Eosinophils % (Manual) 6.0 H Basophils % (Manual) Seg Neutrophils # Lymphocytes # (Manual) 0.9 L Monocytes # (Manual) POC ABG pH POC ABG pCO2 POC ABG pO2 VBG pH Sodium Potassium Chloride Carbon Dioxide BUN 29 H Creatinine 2.8 H Glucose POC Glucose 45 L Hemoglobin A1c Lactic Acid Calcium 8.0 L Phosphorus TIBC Transferrin Ferritin AST Total Creatine Kinase Troponin T NT-Pro-B Natriuret Pep Serum Total Protein Total Protein Albumin PEP Interpretation Triglycerides Cholesterol LDL Cholesterol Direct Urine Creatinine Urine Microalbumin Urine Chloride Urine Total Protein [place] Screen [place]A Titer Miscellaneous Test Crossmatch 04/14/18 04/14/18 04/14/18 11:26 16:17 21:14 WBC RBC Hgb Hct MCV MCH MCHC RDW Plt Count Lymph % (Auto) [place] % (Auto) Lymph # [place] # Seg Neutrophils % Seg Neuts % (Manual) Lymphocytes % (Manual) Monocytes % (Manual) Eosinophils % (Manual) Basophils % (Manual) Seg Neutrophils # Lymphocytes # (Manual) Monocytes # (Manual) POC ABG pH POC ABG pCO2 POC ABG pO2 VBG pH Sodium Potassium Chloride Carbon Dioxide BUN Creatinine Glucose POC Glucose 165 H 233 H 136 H Hemoglobin A1c Lactic Acid Calcium Phosphorus TIBC Transferrin Ferritin AST Total Creatine Kinase Troponin T NT-Pro-B Natriuret Pep Serum Total Protein Total Protein Albumin PEP Interpretation Triglycerides Cholesterol LDL Cholesterol Direct Urine Creatinine Urine Microalbumin Urine Chloride Urine Total Protein AZ[place]A Screen [place]A Titer Miscellaneous Test Crossmatch 04/15/18 04/15/18 04/15/18 05:16 05:16 06:46 WBC RBC 2.89 L Hgb 8.2 L Hct 24.8 L MCV MCH MCHC RDW Plt Count Lymph % (Auto) [place] % (Auto) Lymph # [place] # Seg Neutrophils % Seg Neuts % (Manual) Lymphocytes % (Manual) Monocytes % (Manual) 12.0 H Eosinophils % (Manual) Basophils % (Manual) Seg Neutrophils # Lymphocytes # (Manual) Monocytes # (Manual) POC ABG pH POC ABG pCO2 POC ABG pO2 VBG pH Sodium Potassium Chloride Carbon Dioxide BUN 28 H Creatinine 2.8 H Glucose 151 H POC Glucose 177 H Hemoglobin A1c Lactic Acid Calcium 8.2 L Phosphorus TIBC Transferrin Ferritin AST Total Creatine Kinase Troponin T NT-Pro-B Natriuret Pep Serum Total Protein Total Protein Albumin PEP Interpretation Triglycerides Cholesterol LDL Cholesterol Direct Urine Creatinine Urine Microalbumin Urine Chloride Urine Total Protein [place]A Screen [place]A Titer Miscellaneous Test Crossmatch 04/15/18 04/15/18 04/15/18 12:33 17:21 21:33 WBC RBC Hgb Hct MCV MCH MCHC RDW Plt Count Lymph % (Auto) [place] % (Auto) Lymph # [place] # Seg Neutrophils % Seg Neuts % (Manual) Lymphocytes % (Manual) Monocytes % (Manual) Eosinophils % (Manual) Basophils % (Manual) Seg Neutrophils # Lymphocytes # (Manual) Monocytes # (Manual) POC ABG pH POC ABG pCO2 POC ABG pO2 VBG pH Sodium Potassium Chloride Carbon Dioxide BUN Creatinine Glucose POC Glucose 191 H 204 H 185 H Hemoglobin A1c Lactic Acid Calcium Phosphorus TIBC Transferrin Ferritin AST Total Creatine Kinase Troponin T NT-Pro-B Natriuret Pep Serum Total Protein Total Protein Albumin PEP Interpretation Triglycerides Cholesterol LDL Cholesterol Direct Urine Creatinine Urine Microalbumin Urine Chloride Urine Total Protein [place] Screen [place]A Titer Miscellaneous Test Crossmatch 04/16/18 04/16/18 04/16/18 06:08 06:08 06:31 WBC 4.4 L RBC 2.88 L Hgb 8.3 L Hct 24.5 L MCV MCH MCHC RDW Plt Count Lymph % (Auto) [place] % (Auto) Lymph # [place] # Seg Neutrophils % Seg Neuts % (Manual) Lymphocytes % (Manual) Monocytes % (Manual) 19.0 H Eosinophils % (Manual) Basophils % (Manual) 2.0 H Seg Neutrophils # Lymphocytes # (Manual) Monocytes # (Manual) POC ABG pH POC ABG pCO2 POC ABG pO2 VBG pH Sodium Potassium Chloride Carbon Dioxide BUN 26 H Creatinine 2.9 H Glucose 52 L POC Glucose 54 L Hemoglobin A1c Lactic Acid Calcium Phosphorus TIBC Transferrin Ferritin AST Total Creatine Kinase Troponin T NT-Pro-B Natriuret Pep Serum Total Protein Total Protein Albumin PEP Interpretation Triglycerides Cholesterol LDL Cholesterol Direct Urine Creatinine Urine Microalbumin Urine Chloride Urine Total Protein [place] Screen [place]A Titer Miscellaneous Test Crossmatch 04/16/18 04/16/18 04/16/18 11:40 16:37 21:51 WBC RBC Hgb Hct MCV MCH MCHC RDW Plt Count Lymph % (Auto) [place] % (Auto) Lymph # [place] # Seg Neutrophils % Seg Neuts % (Manual) Lymphocytes % (Manual) Monocytes % (Manual) Eosinophils % (Manual) Basophils % (Manual) Seg Neutrophils # Lymphocytes # (Manual) Monocytes # (Manual) POC ABG pH POC ABG pCO2 POC ABG pO2 VBG pH Sodium Potassium Chloride Carbon Dioxide BUN Creatinine Glucose POC Glucose 270 H 391 H 354 H Hemoglobin A1c Lactic Acid Calcium Phosphorus TIBC Transferrin Ferritin AST Total Creatine Kinase Troponin T NT-Pro-B Natriuret Pep Serum Total Protein Total Protein Albumin PEP Interpretation Triglycerides Cholesterol LDL Cholesterol Direct Urine Creatinine Urine Microalbumin Urine Chloride Urine Total Protein [place] Screen [place]A Titer Miscellaneous Test Crossmatch 04/17/18 04/17/18 05:45 06:45 WBC RBC Hgb Hct MCV MCH MCHC RDW Plt Count Lymph % (Auto) [place] % (Auto) Lymph # [place] # Seg Neutrophils % Seg Neuts % (Manual) Lymphocytes % (Manual) Monocytes % (Manual) Eosinophils % (Manual) Basophils % (Manual) Seg Neutrophils # Lymphocytes # (Manual) Monocytes # (Manual) POC ABG pH POC ABG pCO2 POC ABG pO2 VBG pH Sodium Potassium Chloride Carbon Dioxide BUN 31 H Creatinine 3.1 H Glucose 221 H POC Glucose 207 H Hemoglobin A1c Lactic Acid Calcium 8.1 L Phosphorus TIBC Transferrin Ferritin AST Total Creatine Kinase Troponin T NT-Pro-B Natriuret Pep Serum Total Protein Total Protein Albumin PEP Interpretation Triglycerides Cholesterol LDL Cholesterol Direct Urine Creatinine Urine Microalbumin Urine Chloride Urine Total Protein AZALEA Screen AZALEA Titer Miscellaneous Test Crossmatch Allied health notes reviewed: nursing
[2018-04-17 13:58] VITALS: BP 153/69
== END 2018-04-17 17:30 | disposition home or self-care (01) | DRG 871 ==
LOC: ED 13:34 → CC1 16:07 → 4A 03-29 18:20 → 3A 04-07 21:56
PROVIDERS: ADMIT Internal Medicine; ATTEND Internal Medicine
PROC: 4A033R1 Measurement of Arterial Saturation, Peripheral, Percutaneous Approach (ICD-10-PCS; 2018-03-25)
PROC: 5A1945Z Respiratory Ventilation, 24-96 Consecutive Hours (ICD-10-PCS; 2018-03-25)
PROC: 0BH17EZ Insertion of Endotracheal Airway into Trachea, Via Natural or Artificial Opening (ICD-10-PCS; 2018-03-25)
PROC: 30233N1 Transfusion of Nonautologous Red Blood Cells into Peripheral Vein, Percutaneous Approach (ICD-10-PCS; principal; 2018-04-01)
DX: A41.9 Sepsis, unspecified organism (principal); E11.10 Type 2 diabetes mellitus with ketoacidosis without coma; J96.01 Acute respiratory failure with hypoxia; G92 Toxic encephalopathy; N17.0 Acute kidney failure with tubular necrosis; I63.9 Cerebral infarction, unspecified; E87.0 Hyperosmolality and hypernatremia; L03.116 Cellulitis of left lower limb; L03.115 Cellulitis of right lower limb; J90 Pleural effusion, not elsewhere classified; E87.5 Hyperkalemia; F17.200 Nicotine dependence, unspecified, uncomplicated; F12.90 Cannabis use, unspecified, uncomplicated; I10 Essential (primary) hypertension; R60.1 Generalized edema; E87.70 Fluid overload, unspecified; E88.09 Other disorders of plasma-protein metabolism, not elsewhere classified; E77.8 Other disorders of glycoprotein metabolism; F32.9 Major depressive disorder, single episode, unspecified; D64.9 Anemia, unspecified; E86.0 Dehydration; K64.5 Perianal venous thrombosis; Z79.4 Long term (current) use of insulin; Z83.3 Family history of diabetes mellitus; Z91.19 Patient's noncompliance with other medical treatment and regimen; Z86.73 Personal history of transient ischemic attack (TIA), and cerebral infarction without residual deficits
CPT/HCPCS: 36415; 36600; 51702; 70450; 71045; 71046; 74018; 76770; 76857; 80048; 80053; 80061; 80074; 80202; 80307; 81001; 82043; 82140; 82270; 82436; 82550; 82553; 82570; 82728; 82803; 82805; 82947; 82962; 83036; 83520; 83550; 83735; 83880; 84100; 84156; 84165; 84166; 84300; 84466; 84484; 84520; 85007; 85014; 85018; 85025; 85027; 86021; 86038; 86060; 86160; 86162; 86225; 86235; 86334; 86850; 86900; 86901; 86920; 87040; 87070; 87086; 87205; 87806; 89050; 93005; 93010; 93970; 94003; 96365; 96366; 96367; 96375; 96376; 99292; A9270-GY; J0360; J1644; J1650; J1815; J1940; J2060; J2405; J2543; J2704; J3010; J3370; J3480; J7030; J7040; J7050; P9016; P9047

== ENCOUNTER 2018-04-27 02:14 | Emergency (ER) | payer OTHER ==
--- NOTE | 2018-04-27 03:27 | Emergency Department Report ---
ED Chest Pain HPI - General Chief Complaint: Chest Pain Stated Complaint: CHEST PAIN Time Seen by Provider: 04/27/18 02:37 Source: patient, EMS Mode of arrival: Stretcher Limitations: No Limitations - History of Present Illness Initial Comments: Mr. Rosales is a 52-year-old male with history of insulin-dependent diabetes. He states that he had "a little bit of chest pain". Right-sided pain non-descriptive. Denies shortness of breath. Denies leg pain. However he 's had bilateral leg swelling since prolonged hospitalization. He was admitted for 3 weeks to ICU for DKA and acute kidney injury. No current pain at this moment. MD Complaint: chest pain -: Gradual, days(s) (1) Onset: during rest Pain Location: right chest Pain Radiation: none Severity scale (0 -10): 7 Quality: dull Consistency: intermittent Improves With: nothing Worsens With: nothing Context: recent illness, recent immobilization - Related Data Home Medications Medication Instructions Recorded Confirmed Last Taken Aspirin 81 mg PO DAILY 01/13/18 03/26/18 Unknown AtorvaSTATin [Lipitor] 40 mg PO QHS 01/13/18 03/26/18 Unknown Carvedilol [Coreg] 6.25 mg PO BID 01/13/18 03/27/18 Unknown FLUoxetine [PROzac] 10 mg PO QDAY 01/13/18 03/27/18 Unknown Fluconazole [Diflucan] 200 mg PO 1XW 01/13/18 03/27/18 03/25/18 10:00 5mg Terazosin [Hytrin] 5 mg PO QHS 01/13/18 03/26/18 Unknown Previous Rx's Medication Instructions Recorded Last Taken Type Aspirin EC [Aspirin Enteric Coated 81 mg PO QDAY #30 tablet.dr 04/17/18 Unknown Rx TAB] Famotidine [Pepcid] 10 mg PO BID #60 tablet 04/17/18 Unknown Rx Furosemide [Lasix TAB] 40 mg PO BID #60 tablet 04/17/18 Unknown Rx amLODIPine [Norvasc] 10 mg PO QDAY #30 tablet 04/17/18 Unknown Rx cloNIDine [Catapres] 0.2 mg PO TID #90 tablet 04/17/18 Unknown Rx hydrALAZINE [Apresoline TAB] 100 mg PO TID #90 tab 04/17/18 Unknown Rx Allergies Allergy/AdvReac Type Severity Reaction Status Date / Time No Known Allergies Allergy Unverified 01/12/18 10:02 Heart Score - HEART Score History: Slightly suspicious EKG: Non-specific Age: 45-65 Risk factors: 1-2 risk factors Troponin: < normal limit HEART Score: 3 ED Review of Systems ROS: Stated complaint: CHEST PAIN Other details as noted in HPI Comment: All other systems reviewed and negative Constitutional: fever. denies: malaise Respiratory: denies: cough Cardiovascular: chest pain ED Past Medical Hx - Past Medical History Previous Medical History?: Yes Hx Hypertension: Yes Hx CVA: Yes (right sided weakness) Hx Congestive Heart Failure: No Hx Diabetes: Yes (Has an Insulin pump at home) Hx Renal Disease: Yes (irving failure) Hx Asthma: No Hx COPD: No Hx HIV: No Additional medical history: insulin pump usage - Surgical History Past Surgical History?: No - Social History Smoking Status: Never Smoker Substance Use Type: None - Medications Home Medications: Home Medications Medication Instructions Recorded Confirmed Last Taken Type Aspirin 81 mg PO DAILY 01/13/18 03/26/18 Unknown History AtorvaSTATin [Lipitor] 40 mg PO QHS 01/13/18 03/26/18 Unknown History Carvedilol [Coreg] 6.25 mg PO BID 01/13/18 03/27/18 Unknown History FLUoxetine [PROzac] 10 mg PO QDAY 01/13/18 03/27/18 Unknown History Fluconazole [Diflucan] 200 mg PO 1XW 01/13/18 03/27/18 03/25/18 10:00 History 5mg Terazosin [Hytrin] 5 mg PO QHS 01/13/18 03/26/18 Unknown History Aspirin EC [Aspirin Enteric Coated 81 mg PO QDAY #30 tablet.dr 04/17/18 Unknown Rx TAB] Famotidine [Pepcid] 10 mg PO BID #60 tablet 04/17/18 Unknown Rx Furosemide [Lasix TAB] 40 mg PO BID #60 tablet 04/17/18 Unknown Rx amLODIPine [Norvasc] 10 mg PO QDAY #30 tablet 04/17/18 Unknown Rx cloNIDine [Catapres] 0.2 mg PO TID #90 tablet 04/17/18 Unknown Rx hydrALAZINE [Apresoline TAB] 100 mg PO TID #90 tab 04/17/18 Unknown Rx ED Physical Exam - General Limitations: No Limitations General appearance: alert, in no apparent distress - Head Head exam: Present: atraumatic, normocephalic - Eye Eye exam: Present: normal appearance - ENT ENT exam: Present: mucous membranes moist - Neck Neck exam: Present: normal inspection - Respiratory Respiratory exam: Present: normal lung sounds bilaterally. Absent: respiratory distress, wheezes, rales, rhonchi - Cardiovascular Cardiovascular Exam: Present: regular rate, normal rhythm, normal heart sounds. Absent: systolic murmur, diastolic murmur, rubs, gallop - GI/Abdominal GI/Abdominal exam: Present: soft, normal bowel sounds. Absent: distended, tenderness, guarding, rebound - Rectal Rectal exam: Present: deferred - Extremities Exam Extremities exam: Present: normal inspection - Back Exam Back exam: Present: normal inspection - Neurological Exam Neurological exam: Present: alert, oriented X3 - Psychiatric Psychiatric exam: Present: normal affect, normal mood - Skin Skin exam: Present: warm, dry, intact, normal color. Absent: rash ED Course Vital Signs 04/27/18 04/27/18 04/27/18 02:35 03:00 03:06 Temperature 98.2 F Pulse Rate 89 88 Respiratory 20 15 Rate Blood Pressure 169/81 163/85 Blood Pressure 169/81 [Left] O2 Sat by Pulse 98 99 98 Oximetry 04/27/18 04:00 Temperature Pulse Rate 84 Respiratory 20 Rate Blood Pressure 156/78 Blood Pressure [Left] O2 Sat by Pulse 99 Oximetry ED Medical Decision Making - Lab Data Result diagrams: 04/27/18 03:48 04/27/18 03:48 - EKG Data EKG shows normal: sinus rhythm, axis, intervals, QRS complexes Rate: normal - EKG Data 04/27/18 03:29 NSR nl rate nl axis nl intervals no ST-T signs of ischemia no ST elevation rate 90 bpm - Radiology Data Radiology results: report reviewed No acute process, infiltrative process improved from previous x-ray - Medical Decision Making Mr. Rosales presents with mild right-sided chest pain which was transient and nondescript. No indication of ACS or pulmonary embolism. No indication of pneumonia. He has been symptom-free while in the ED. He understands return for any recurrent symptoms. Critical care attestation.: If time is entered above; I have spent that time in minutes in the direct care of this critically ill patient, excluding procedure time. ED Disposition Clinical Impression: Chest pain Disposition: DC-01 TO HOME OR SELFCARE Is pt being admited?: No Does the pt Need Aspirin: No Condition: Stable Instructions: Chest Pain (ED) Referrals: PRIMARY CARE, [Primary Care Provider] - 3-5 Days Time of Disposition: 04:33
[2018-04-27 03:59] LABS: Basophils % (Auto) 0.8 % (0.0-1.8); Eosinophils # (Auto) 0.3 K/mm3 (0.0-0.4); Eosinophils % (Auto) 5.7 % (0.0-4.3); Hematocrit 23.9 % (35.5-45.6); Lymphocytes # (Auto) 1.1 K/mm3 (1.2-5.4); Lymphocytes % (Auto) 18.1 % (13.4-35.0); Mean Corpuscular HGB Conc 33 % (32-34); Mean Corpuscular Hemoglobin 28 pg (28-32); Mean Corpuscular Volume 85 fl (84-94); Monocytes # (Auto) 0.9 K/mm3 (0.0-0.8); Monocytes % (Auto) 14.5 % (0.0-7.3); Platelet Count 212 K/mm3 (140-440); Red Blood Count 2.83 M/mm3 (3.65-5.03); Red Cell Distribution Width 13.4 % (13.2-15.2)
--- NOTE | 2018-04-27 04:10 | XRay Report ---
FINAL REPORT EXAM: XR CHEST 1V AP HISTORY: Chest Pain TECHNIQUE: AP portable view(s) of the chest obtained. PRIORS: 04/13/2018, 03/29/2018 FINDINGS: No mediastinal shift. Cardiac silhouette is not enlarged. No pneumothorax or definite effusion. Improved aeration of both lungs compared to 04/13/2018, with small residual ill-defined bibasilar opacities remaining present. No acute skeletal findings. IMPRESSION: Improved aeration of both lungs compared to 04/13/2018. Small pleural effusions have resolved. Minimal residual ill-defined opacities may represent atelectasis, scarring, and/or persistent areas of infection.
[2018-04-27 04:24] LABS: Calcium 7.7 mg/dL (8.4-10.2)
[2018-04-27 04:25] VITALS: BP 156/78
[2018-04-27 05:07] LABS: Chol/HDL Ratio 2.83 %
== END 2018-04-27 05:06 | disposition home or self-care (01) ==
LOC: ED 02:14
DX: R07.89 Other chest pain (principal); E11.69 Type 2 diabetes mellitus with other specified complication; I10 Essential (primary) hypertension; Z96.41 Presence of insulin pump (external) (internal); Z79.82 Long term (current) use of aspirin; Z86.73 Personal history of transient ischemic attack (TIA), and cerebral infarction without residual deficits
CPT/HCPCS: 36415; 71045; 80048; 80061; 84484; 85025; 93005; 93010; 99284

== ENCOUNTER 2018-05-05 11:59 | Inpatient (IN) | payer OTHER ==
[2018-05-05] MEDS ORDERED: ZOFRAN ODT ONE (12:36)
[2018-05-05] MEDS ORDERED: ZOFRAN ODT PO ONE (12:42)
[2018-05-05 13:07] LABS: Basophils # (Auto) 0.1 K/mm3 (0.0-0.1); Basophils % (Auto) 0.7 % (0.0-1.8); Eosinophils % (Auto) 0.1 % (0.0-4.3); Hematocrit 30.4 % (35.5-45.6); Hemoglobin 10.1 gm/dl (11.8-15.2); Lymphocytes # (Auto) 1.3 K/mm3 (1.2-5.4); Lymphocytes % (Auto) 13.7 % (13.4-35.0); Mean Corpuscular HGB Conc 33 % (32-34); Mean Corpuscular Hemoglobin 28 pg (28-32); Mean Corpuscular Volume 84 fl (84-94); Monocytes # (Auto) 0.6 K/mm3 (0.0-0.8); Monocytes % (Auto) 5.9 % (0.0-7.3); Platelet Count 368 K/mm3 (140-440); Red Blood Count 3.63 M/mm3 (3.65-5.03); Red Cell Distribution Width 13.6 % (13.2-15.2)
[2018-05-05 13:45] LABS: Calcium 8.8 mg/dL (8.4-10.2)
[2018-05-05] MEDS ORDERED: NACL 0.9% 1000 ML 1,000 ML IV ONE (20:34)
[2018-05-05] MEDS ORDERED: ZOFRAN IV ONE (20:34)
--- NOTE | 2018-05-05 20:37 | Emergency Department Report ---
ED General Adult HPI - General Chief complaint: Hyperglycemia Stated complaint: VOMITING X3DAYS/DIABECTIC/HIGH BP Time Seen by Provider: 05/05/18 19:52 Source: patient Mode of arrival: Wheelchair Limitations: No Limitations - History of Present Illness Initial comments: Patient is 52 years old male with history of diabetes on insulin pump. Patient presented to the ER complaining of nausea vomiting for the last 3 days with blood sugar reading above 600. Patient stated that his insulin pump is not working. Patient denied any fever, headache, shortness of breath or chest pain. Patient stated that he's been coughing recently. -: days(s) - Related Data Home Medications Medication Instructions Recorded Confirmed Last Taken Aspirin 81 mg PO DAILY 01/13/18 03/26/18 Unknown AtorvaSTATin [Lipitor] 40 mg PO QHS 01/13/18 03/26/18 Unknown Carvedilol [Coreg] 6.25 mg PO BID 01/13/18 03/27/18 Unknown FLUoxetine [PROzac] 10 mg PO QDAY 01/13/18 03/27/18 Unknown Fluconazole [Diflucan] 200 mg PO 1XW 01/13/18 03/27/18 03/25/18 10:00 5mg Terazosin [Hytrin] 5 mg PO QHS 01/13/18 03/26/18 Unknown Previous Rx's Medication Instructions Recorded Last Taken Type Aspirin EC [Aspirin Enteric Coated 81 mg PO QDAY #30 tablet.dr 04/17/18 Unknown Rx TAB] Famotidine [Pepcid] 10 mg PO BID #60 tablet 04/17/18 Unknown Rx Furosemide [Lasix TAB] 40 mg PO BID #60 tablet 04/17/18 Unknown Rx amLODIPine [Norvasc] 10 mg PO QDAY #30 tablet 04/17/18 Unknown Rx cloNIDine [Catapres] 0.2 mg PO TID #90 tablet 04/17/18 Unknown Rx hydrALAZINE [Apresoline TAB] 100 mg PO TID #90 tab 04/17/18 Unknown Rx Allergies Allergy/AdvReac Type Severity Reaction Status Date / Time No Known Allergies Allergy Unverified 01/12/18 10:02 ED Review of Systems ROS: Stated complaint: VOMITING X3DAYS/DIABECTIC/HIGH BP Other details as noted in HPI Comment: All other systems reviewed and negative Constitutional: denies: chills, fever Respiratory: cough. denies: orthopnea, shortness of breath, SOB with exertion, SOB at rest, wheezing Cardiovascular: denies: chest pain, palpitations, dyspnea on exertion Gastrointestinal: nausea, vomiting. denies: abdominal pain, diarrhea, constipation, hematemesis, melena, hematochezia Genitourinary: denies: urgency, dysuria, frequency, hematuria, discharge Musculoskeletal: denies: back pain Neurological: denies: headache, weakness, numbness, paresthesias, confusion ED Past Medical Hx - Past Medical History Hx Hypertension: Yes Hx CVA: Yes (right sided weakness) Hx Congestive Heart Failure: No Hx Diabetes: Yes (Has an Insulin pump at home) Hx Renal Disease: Yes (irving failure) Hx Asthma: No Hx COPD: No Hx HIV: No Additional medical history: insulin pump usage - Social History Smoking Status: Current Every Day Smoker Substance Use Type: Alcohol - Medications Home Medications: Home Medications Medication Instructions Recorded Confirmed Last Taken Type Aspirin 81 mg PO DAILY 01/13/18 03/26/18 Unknown History AtorvaSTATin [Lipitor] 40 mg PO QHS 01/13/18 03/26/18 Unknown History Carvedilol [Coreg] 6.25 mg PO BID 01/13/18 03/27/18 Unknown History FLUoxetine [PROzac] 10 mg PO QDAY 01/13/18 03/27/18 Unknown History Fluconazole [Diflucan] 200 mg PO 1XW 01/13/18 03/27/18 03/25/18 10:00 History 5mg Terazosin [Hytrin] 5 mg PO QHS 01/13/18 03/26/18 Unknown History Aspirin EC [Aspirin Enteric Coated 81 mg PO QDAY #30 tablet.dr 04/17/18 Unknown Rx TAB] Famotidine [Pepcid] 10 mg PO BID #60 tablet 04/17/18 Unknown Rx Furosemide [Lasix TAB] 40 mg PO BID #60 tablet 04/17/18 Unknown Rx amLODIPine [Norvasc] 10 mg PO QDAY #30 tablet 04/17/18 Unknown Rx cloNIDine [Catapres] 0.2 mg PO TID #90 tablet 04/17/18 Unknown Rx hydrALAZINE [Apresoline TAB] 100 mg PO TID #90 tab 04/17/18 Unknown Rx ED Physical Exam - General Limitations: No Limitations General appearance: alert, in no apparent distress - Head Head exam: Present: atraumatic, normocephalic, normal inspection - ENT ENT exam: Present: normal exam, normal orophraynx - Neck Neck exam: Present: normal inspection, full ROM. Absent: tenderness, meningismus, lymphadenopathy, thyromegaly - Respiratory Respiratory exam: Present: normal lung sounds bilaterally. Absent: respiratory distress, wheezes, rales, rhonchi, stridor, accessory muscle use, decreased breath sounds, prolonged expiratory - Cardiovascular Cardiovascular Exam: Present: tachycardia - GI/Abdominal GI/Abdominal exam: Present: soft, normal bowel sounds. Absent: distended, tenderness, guarding, rebound, rigid, organomegaly, mass, bruit, pulsatile mass , hernia - Extremities Exam Extremities exam: Present: normal inspection, full ROM, normal capillary refill - Back Exam Back exam: Present: normal inspection, full ROM. Absent: tenderness, CVA tenderness (R), CVA tenderness (L), muscle spasm, paraspinal tenderness, vertebral tenderness, rash noted - Neurological Exam Neurological exam: Present: alert, oriented X3, CN II-XII intact, normal gait - Skin Skin exam: Present: warm, intact, normal color ED Course Vital Signs 05/05/18 05/05/18 05/05/18 12:14 21:25 21:30 Temperature 98.5 F Pulse Rate 117 H 105 H Respiratory 18 17 Rate Blood Pressure 168/86 199/93 O2 Sat by Pulse 97 98 96 Oximetry 05/05/18 05/05/18 05/05/18 21:46 22:00 22:15 Temperature Pulse Rate 95 H 100 H 99 H Respiratory 16 15 16 Rate Blood Pressure 199/93 204/92 204/92 O2 Sat by Pulse 95 96 96 Oximetry 05/05/18 05/05/18 05/05/18 22:24 22:30 22:45 Temperature Pulse Rate 100 H 94 H 96 H Respiratory 17 18 Rate Blood Pressure 204/92 186/89 186/89 O2 Sat by Pulse 93 93 Oximetry 05/05/18 05/05/18 05/05/18 23:00 23:15 23:30 Temperature Pulse Rate 98 H 98 H 99 H Respiratory 19 18 20 Rate Blood Pressure 181/85 181/85 148/72 O2 Sat by Pulse 90 92 91 Oximetry 05/05/18 05/06/18 23:46 00:03 Temperature Pulse Rate 99 H Respiratory 17 20 Rate Blood Pressure 148/72 O2 Sat by Pulse 93 Oximetry - Reevaluation(s) Reevaluation #1: 05/05/18 22:19 [address]iscuss[address] the patient is Dr. Sullivan from [place], she advised to admit the patient to [facility]. ED Medical Decision Making - Lab Data Result diagrams: 05/05/18 12:43 05/05/18 23:06 - Radiology Data Radiology results: report reviewed Referring Physician: ELLEN ESCOBAR Patient Name: GINA CLANCY Date of : 1965 Sex: Male Report Date: 2018-05-05 Report Status: Finalized Findings [facility] [address] [place] [address] XRay Report Signed Patient: GINA CLANCY MR#: [id number] : 1965 Acct:[id number] Age/Sex: 52 / M ADM Date: 05/05/18 Loc: ED Attending Dr: Ordering Physician: ELLEN ESCOBAR Date of Service: 05/05/18 Procedure(s): XR chest 1V ap Accession Number(s): [id number] cc: ELLEN ESCOBAR Fluoro Time In Minutes: FINAL REPORT EXAM: XR CHEST 1V AP HISTORY: cough COMPARISON: April 27, 2018. FINDINGS: Frontal view(s) of the chest obtained. Cardiac silhouette within normal limits. No gross consolidation or effusion. No pneumothorax. IMPRESSION: No focal consolidation. Transcribed By: LMA Dictated By: MINNIE MURILLO MD Electronically Authenticated By: MINNIE MURILLO MD Signed Date/Time: 05/05/182107 DD/ 07 TD/TT: 05/05/182107 - Medical Decision Making I discussed the patient with Dr. Elva Ibarra, she agreed to admit the patient to her service. Critical Care Time: Yes Critical care time in (mins) excluding proc time.: 30 Critical care attestation.: If time is entered above; I have spent that time in minutes in the direct care of this critically ill patient, excluding procedure time. ED Disposition Clinical Impression: Metabolic acidosis, DKA (diabetic ketoacidoses) Disposition: DC- OP ADMIT IP TO THIS HOSP Is pt being admited?: Yes Condition: Stable
[2018-05-05] MEDS ORDERED: D50W (25GM) Syringe IV PRN ×2 (21:01→23:23)
--- NOTE | 2018-05-05 21:13 | XRay Report ---
FINAL REPORT EXAM: XR CHEST 1V AP HISTORY: cough COMPARISON: April 27, 2018. FINDINGS: Frontal view(s) of the chest obtained. Cardiac silhouette within normal limits. No gross consolidation or effusion. No pneumothorax. IMPRESSION: No focal consolidation.
[2018-05-05 21:59] LABS: Amorphous Crystals,Urine Few; Bacteria,Urine 1+ /HPF (Negative); Bilirubin,Urine NEG (Negative); Blood,Urine SM (Negative); Color,Urine Yellow (Yellow); Urobilinogen,Urine < 2.0 mg/dL (<2.0)
[2018-05-05] MEDS ORDERED: HumuLIN R 100 UNITS in NACL 0.9% 99 ML IV SCH (22:00)
[2018-05-05] MEDS ORDERED: NORMODYNE IV ONE (22:10)
[2018-05-05 22:15] LABS: Calcium 8.5 mg/dL (8.4-10.2)
--- NOTE | 2018-05-05 23:12 | History and Physical Report ---
History of Present Illness Date of examination: 05/04/18 History of present illness: 52 year old man with a history of diabetes, hypertension, chronic kidney disease , CVA with right-sided weakness comes emergency room with complaints of nausea and vomiting 2 days. He states that he took a total of 100 units of insulin today because his blood sugars been reading high. No fever or chills, states compliant with his medications Review of systems Constitutional: no weight loss, chills, fever Ears, eyes, nose, mouth and throat: no nasal congestion, no nasal discharge, no sinus pressure, no vision change, no red eye. Neck: No neck pain or rigidity. Cardiovascular: no chest pain, palpitations Respiratory: no cough, shortness of breath Gastrointestinal: no abdominal pain hematochezia Genitourinary : no frequency , no hematuria Musculoskeletal: no joint swelling or muscle ache Integumentary: no rash, no pruritis Neurological: no parathesias, no numbness, no focal weakness Endocrine: no cold or heat intolerance, no polyuria or polydipsia Hematologic/Lymphatic: no easy bruising, no easy bleeding, no gland swelling Allergic/Immunologic: no urticaria, no angioedema. PAST MEDICAL HISTORY: Hypertension, diabetes, chronic kidney disease, CVA PAST SURGICAL HISTORY: None SOCIAL HISTORY: No alcohol, tobacco, smoke marijuana FAMILY HISTORY: Hypertension Medications and Allergies Allergies Allergy/AdvReac Type Severity Reaction Status Date / Time No Known Allergies Allergy Unverified 01/12/18 10:02 Home Medications Medication Instructions Recorded Confirmed Last Taken Type Aspirin 81 mg PO DAILY 01/13/18 03/26/18 Unknown History AtorvaSTATin [Lipitor] 40 mg PO QHS 01/13/18 03/26/18 Unknown History Carvedilol [Coreg] 6.25 mg PO BID 01/13/18 03/27/18 Unknown History FLUoxetine [PROzac] 10 mg PO QDAY 01/13/18 03/27/18 Unknown History Fluconazole [Diflucan] 200 mg PO 1XW 01/13/18 03/27/18 03/25/18 10:00 History 5mg Terazosin [Hytrin] 5 mg PO QHS 01/13/18 03/26/18 Unknown History Aspirin EC [Aspirin Enteric Coated 81 mg PO QDAY #30 tablet. 04/17/18 Unknown Rx TAB] Famotidine [Pepcid] 10 mg PO BID #60 tablet 04/17/18 Unknown Rx Furosemide [Lasix TAB] 40 mg PO BID #60 tablet 04/17/18 Unknown Rx amLODIPine [Norvasc] 10 mg PO QDAY #30 tablet 04/17/18 Unknown Rx cloNIDine [Catapres] 0.2 mg PO TID #90 tablet 04/17/18 Unknown Rx hydrALAZINE [Apresoline TAB] 100 mg PO TID #90 tab 04/17/18 Unknown Rx Active Meds: Active Medications Dextrose (D50w (25gm) Syringe) 0 ml IV PRN PRN PRN Reason: Hypoglycemia Insulin Human Regular 100 (units/ Sodium Chloride) 100 mls @ 1 mls/hr IV TITR MUSA; Protocol Last Admin: 05/05/18 22:33 Dose: 5 units/hr, 5 mls/hr Exam - Physical Exam Narrative exam: Gen. appearance: Patient lying in bed, no apparent distress HEENT: Normocephalic, atraumatic, pupils equally round and reactive to light, extraocular movement intact, and no sclericterus,. No JVD or thyromegaly or nodule,neck supple, no carotid bruit ,mucous membranes moist, no exudate or erythema Heart: S1, S2, regular rate and rhythm Lungs: Clear bilaterally, breathing comfortable Abdomen: Positive bowel sounds, non-tender, nondistended, no organomegaly Extremity: Ankle edema, no cyanosis, clubbing Skin: no rash, dry, warm Neuro: Oriented 3, cranial nerves II-12 intact, speech is fluent, motor and sensory intact - Constitutional Vitals: Temp Pulse Resp BP Pulse Ox 98.5 F 98 H 19 181/85 90 05/05/18 12:14 05/05/18 23:00 05/05/18 23:00 05/05/18 23:00 05/05/18 23:00 Results - Labs CBC & Chem 7: 05/05/18 12:43 05/05/18 23:06 Labs: Abnormal lab results 05/05/18 05/05/18 05/05/18 Range/Units 12:26 12:43 12:51 RBC 3.63 L (3.65-5.03) M/mm3 Hgb 10.1 L (11.8-15.2) gm/dl Hct 30.4 L (35.5-45.6) % Seg Neutrophils % 79.6 H (40.0-70.0) % Sodium 132 L (137-145) mmol/L Chloride 82.5 L (98-107) mmol/L Carbon Dioxide 19 L (22-30) mmol/L BUN 50 H (9-20) mg/dL Creatinine 3.2 H (0.8-1.5) mg/dL Glucose 523 H* (75-100) mg/dL POC Glucose > 500 H (70-105) 05/05/18 05/05/18 Range/Units 19:39 21:27 RBC (3.65-5.03) M/mm3 Hgb (11.8-15.2) gm/dl Hct (35.5-45.6) % Seg Neutrophils % (40.0-70.0) % Sodium 132 L (137-145) mmol/L Chloride 88.1 L (98-107) mmol/L Carbon Dioxide (22-30) mmol/L BUN 50 H (9-20) mg/dL Creatinine 2.8 H (0.8-1.5) mg/dL Glucose 256 H (75-100) mg/dL POC Glucose 232 H (70-105) - Imaging and Cardiology EKG: image reviewed Chest x-ray: report reviewed Assessment and Plan Assessment DKA Hypertension malignant Chronic kidney disease History of CVA Plan Admit to medicine DKA protocol with IV fluid, insulin drip Monitor fingersticks, serial chemistry, cardiac enzymes Consult critical care, IV hydralazine for blood pressure control DVT prophylaxis
[2018-05-05] MEDS ORDERED: SODIUM CHLORIDE FLUSH SYRINGE 10 ML IV PRN (23:20)
[2018-05-05] MEDS ORDERED: TYLENOL PO PRN (23:20)
[2018-05-05] MEDS ORDERED: ZOFRAN IV PRN (23:20)
[2018-05-05 23:33] LABS: Calcium 8.1 mg/dL (8.4-10.2)
[2018-05-05] MEDS ORDERED: NACL 0.9% 1000 ML 1,000 ML IV SCH (23:45)
[2018-05-06] MEDS: D5/0.45NS 1,000 ML IV SCH ×2 (01:09→07:45)
[2018-05-06] MEDS ORDERED: APRESOLINE IV PRN (01:11)
[2018-05-06 02:07] LABS: Calcium 8.2 mg/dL (8.4-10.2)
[2018-05-06 02:09] LABS: Creatine Kinase MB 1.5 ng/mL (0.0-4.0)
[2018-05-06 03:13] LABS: Chol/HDL Ratio 3.78 %
[2018-05-06 04:19] LABS: Calcium 8.2 mg/dL (8.4-10.2)
[2018-05-06 08:39] LABS: Creatine Kinase MB 1.2 ng/mL (0.0-4.0)
[2018-05-06] MEDS ORDERED: BABY ASPIRIN PO SCH (10:00)
[2018-05-06] MEDS: COREG PO SCH ×2 (11:57→22:37)
[2018-05-06] MEDS: HALFPRIN EC PO SCH (11:58)
[2018-05-06] MEDS: LOVENOX SUB-Q SCH (11:58)
[2018-05-06] MEDS: NORVASC PO SCH (11:58)
[2018-05-06] MEDS: PEPCID PO SCH ×2 (11:59→22:37)
[2018-05-06] MEDS: SODIUM CHLORIDE FLUSH SYRINGE 10 ML IV SCH ×2 (12:00→22:38)
[2018-05-06] MEDS: HumaLOG SUB-Q SCH ×3 (12:00→23:12)
[2018-05-06] MEDS: PROzac PO SCH (12:04)
--- NOTE | 2018-05-06 12:42 | Progress Note ---
Assessment and Plan Assessment and plan: Diabetic ketoacidosis , improved anion gap disclosed. Will discontinue insulin drip Transition to subcutaneous insulin Start cardiac consistent carb diet, and downgraded to medical surgical floor Hypertensive urgency Resume Clonidine, Hydralazine, Amlodipine and Coreg from home Acute kidney injury. Consult Nephrology NS at 150 cc/hr Hyperlipidemia. continue statin Full CODE STATUS History Interval history: Feels better, No more vomiting Hospitalist Physical - Physical exam Narrative exam: Gen : Not in acute distress, HEENT:Normocephalic, atraumatic Neck: supple, No JVD Lungs: Clear to auscultation, bilaterally, no rhonchi, no wheeze Heart :S1 and S2 reg, no murmurs, rubs or gallop Abd:soft, tender, no rebound tenderness, non distended, normal bowel sounds Ext: No edema, no clubbing, no cyanosis, Neuro: Awake,alert,oriented x 3, no focal signs Psych: Normal mood - Constitutional Vitals: Temp Pulse Resp BP Pulse Ox 98.5 F 96 H 18 162/74 100 05/06/18 12:21 05/06/18 12:21 05/06/18 12:21 05/06/18 12:21 05/06/18 12:21 Results - Labs CBC & Chem 7: 05/05/18 12:43 05/06/18 13:05 Labs: Laboratory Last Values WBC 9.6 K/mm3 (4.5-11.0) 05/05/18 12:43 RBC 3.63 M/mm3 (3.65-5.03) L 05/05/18 12:43 Hgb 10.1 gm/dl (11.8-15.2) L 05/05/18 12:43 Hct 30.4 % (35.5-45.6) L 05/05/18 12:43 MCV 84 fl (84-94) 05/05/18 12:43 MCH 28 pg (28-32) 05/05/18 12:43 MCHC 33 % (32-34) 05/05/18 12:43 RDW 13.6 % (13.2-15.2) 05/05/18 12:43 Plt Count 368 K/mm3 (140-440) 05/05/18 12:43 Lymph % (Auto) 13.7 % (13.4-35.0) 05/05/18 12:43 [place] % (Auto) 5.9 % (0.0-7.3) 05/05/18 12:43 Eos % (Auto) 0.1 % (0.0-4.3) 05/05/18 12:43 Baso % (Auto) 0.7 % (0.0-1.8) 05/05/18 12:43 Lymph # 1.3 K/mm3 (1.2-5.4) 05/05/18 12:43 [place] # 0.6 K/mm3 (0.0-0.8) 05/05/18 12:43 Eos # 0.0 K/mm3 (0.0-0.4) 05/05/18 12:43 Baso # 0.1 K/mm3 (0.0-0.1) 05/05/18 12:43 Seg Neutrophils % 79.6 % (40.0-70.0) H 05/05/18 12:43 Seg Neutrophils # 7.7 K/mm3 (1.8-7.7) 05/05/18 12:43 VBG pH 7.417 (7.320-7.420) 05/05/18 12:51 Sodium 137 mmol/L (137-145) 05/06/18 03:43 Potassium 3.3 mmol/L (3.6-5.0) L 05/06/18 03:43 Chloride 93.3 mmol/L (98-107) L 05/06/18 03:43 Carbon Dioxide 30 mmol/L (22-30) 05/06/18 03:43 Anion Gap 17 mmol/L 05/06/18 03:43 BUN 46 mg/dL (9-20) H 05/06/18 03:43 Creatinine 2.8 mg/dL (0.8-1.5) H 05/06/18 03:43 Estimated GFR 29 ml/min 05/06/18 03:43 BUN/Creatinine Ratio 16 % 05/06/18 03:43 Glucose 109 mg/dL (75-100) H 05/06/18 03:43 POC Glucose 246 (70-105) H 05/06/18 11:56 Hemoglobin A1c 10.6 % (4-6) H 05/05/18 23:42 Calcium 8.2 mg/dL (8.4-10.2) L 05/06/18 03:43 Phosphorus 3.20 mg/dL (2.5-4.5) 05/05/18 23:06 Magnesium 1.80 mg/dL (1.7-2.3) 05/05/18 23:06 Total Creatine Kinase 95 units/L (55-170) 05/06/18 07:58 CK-MB (CK-2) 1.2 ng/mL (0.0-4.0) 05/06/18 07:58 CK-MB (CK-2) Rel Index 1.2 (0-4) 05/06/18 07:58 Troponin T 0.040 ng/mL (0.00-0.029) H 05/06/18 07:58 Triglycerides 133 mg/dL (2-149) 05/06/18 01:24 Cholesterol 155 mg/dL (50-199) 05/06/18 01:24 LDL Cholesterol Direct 93 mg/dL (50-130) 05/06/18 01:24 HDL Cholesterol 41 mg/dL (40-59) 05/06/18 01:24 Cholesterol/HDL Ratio 3.78 % 05/06/18 01:24 Urine Color Yellow (Yellow) 05/05/18 21:41 Urine Turbidity Clear (Clear) 05/05/18 21:41 Urine pH 5.0 (5.0-7.0) 05/05/18 21:41 Ur Specific [place] 1.014 (1.003-1.030) 05/05/18 21:41 Urine Protein 100 mg/dl mg/dL (Negative) 05/05/18 21:41 Urine Glucose (UA) >=500 mg/dL (Negative) 05/05/18 21:41 Urine Ketones 20 mg/dL (Negative) 05/05/18 21:41 Urine Blood Sm (Negative) 05/05/18 21:41 Urine Nitrite Neg (Negative) 05/05/18 21:41 Urine Bilirubin Neg (Negative) 05/05/18 21:41 Urine Urobilinogen < 2.0 mg/dL (<2.0) 05/05/18 21:41 Ur Leukocyte Esterase Neg (Negative) 05/05/18 21:41 Urine WBC (Auto) 3.0 /HPF (0.0-6.0) 07/08/18 21:41 Urine RBC (Auto) 2.0 /HPF (0.0-6.0) 05/05/18 21:41 Urine Bacteria (Auto) 1+ /HPF (Negative) 05/05/18 21:41 Amorphous Crystals Few 05/05/18 21:41
[2018-05-06] MEDS: K-DUR PO SCH ×2 (13:54→20:54)
[2018-05-06] MEDS: CATAPRES PO SCH ×2 (13:54→20:54)
[2018-05-06] MEDS: APRESOLINE PO SCH ×2 (13:54→20:54)
[2018-05-06 14:05] LABS: Calcium 7.9 mg/dL (8.4-10.2)
--- NOTE | 2018-05-06 15:50 | Consultation ---
History of Present Illness - Reason for Consult Consult date: 05/06/18 acute renal failure - History of Present Illness Mr Rosales is a 52 year old man with a history of diabetes, hypertension, chronic kidney disease, CVA with right-sided weakness who has been admitted to the [facility] with nausea and vomiting since 2-3 days along with Hyperglycemia. Pt denies fever, chills, SHOB, CP, belly pain, diarrhea. His Cr on last admission was 3 and today it is 2.4. ROS: As in HPI otherwise 12 point review of systems -ve PAST MEDICAL HISTORY: Hypertension, diabetes, chronic kidney disease, CVA PAST SURGICAL HISTORY: None SOCIAL HISTORY: No alcohol, tobacco, smoke marijuana FAMILY HISTORY: Hypertension Medications and Allergies Allergies Allergy/AdvReac Type Severity Reaction Status Date / Time No Known Allergies Allergy Unverified 01/12/18 10:02 Home Medications Medication Instructions Recorded Confirmed Last Taken Type Aspirin 81 mg PO DAILY 01/13/18 05/06/18 Unknown History AtorvaSTATin [Lipitor] 40 mg PO QHS 01/13/18 05/06/18 Unknown History Carvedilol [Coreg] 6.25 mg PO BID 01/13/18 05/06/18 Unknown History FLUoxetine [PROzac] 10 mg PO QDAY 01/13/18 05/06/18 Unknown History Fluconazole [Diflucan] 200 mg PO 1XW 01/13/18 05/06/18 03/25/18 10:00 History 5mg Terazosin [Hytrin] 5 mg PO QHS 01/13/18 05/06/18 Unknown History Aspirin EC [Aspirin Enteric Coated 81 mg PO QDAY #30 tablet.dr 04/17/18 Unknown Rx TAB] Famotidine [Pepcid] 10 mg PO BID #60 tablet 04/17/18 05/06/18 Unknown Rx Furosemide [Lasix TAB] 40 mg PO BID #60 tablet 04/17/18 05/06/18 Unknown Rx amLODIPine [Norvasc] 10 mg PO QDAY #30 tablet 04/17/18 05/06/18 Unknown Rx cloNIDine [Catapres] 0.2 mg PO TID #90 tablet 04/17/18 05/06/18 Unknown Rx hydrALAZINE [Apresoline TAB] 100 mg PO TID #90 tab 06/20/18 07/09/18 Unknown Rx Humalog 40 unit SUB-Q ACHS 05/06/18 05/06/18 Unknown History Active Meds: Active Medications Acetaminophen (Tylenol) 650 mg PO Q4H PRN PRN Reason: Pain MILD(1-3)/Fever >100.5/TIAN Amlodipine Besylate (Norvasc) 10 mg PO QDAY [facility] Last Admin: 05/06/18 11:58 Dose: 10 mg Aspirin (Halfprin Ec) 81 mg PO QDAY [facility] Last Admin: 05/06/18 11:58 Dose: Not Given Atorvastatin Calcium (Lipitor) 40 mg PO QHS [facility] Carvedilol (Coreg) 6.25 mg PO BID [facility] Last Admin: 05/06/18 11:57 Dose: Not Given Clonidine HCl (Catapres) 0.2 mg PO TID [facility] Last Admin: 05/06/18 13:54 Dose: 0.2 mg Dextrose (D50w (25gm) Syringe) 0 ml IV ONCE PRN PRN Reason: Hypoglycemia Enoxaparin Sodium (Lovenox) 30 mg SUB-Q QDAY [facility] Last Admin: 05/06/18 11:58 Dose: Not Given Famotidine (Pepcid) 10 mg PO BID [facility] Last Admin: 05/06/18 11:59 Dose: Not Given Fluoxetine HCl (Prozac) 10 mg PO QDAY [facility] Last Admin: 05/06/18 12:04 Dose: Not Given Hydralazine HCl (Apresoline) 5 mg IV Q6HR PRN PRN Reason: Hypertension Hydralazine HCl (Apresoline) 100 mg PO TID [facility] Last Admin: 05/06/18 13:54 Dose: 100 mg Sodium Chloride (Nacl 0.9% 1000 Ml) 1,000 mls @ 150 mls/hr IV DIRECT [facility] Last Admin: 05/05/18 23:55 Dose: 150 mls/hr Insulin Glargine (Lantus) 30 units SUB-Q QHS [facility] Insulin Human Lispro (Humalog) 20 unit SUB-Q AC [facility] Last Admin: 05/06/18 12:00 Dose: 20 unit Ondansetron HCl (Zofran) 4 mg IV Q4H PRN PRN Reason: Nausea And Vomiting Potassium Chloride (K-Dur) 40 meq PO Q6H [facility] Stop: 05/06/18 19:01 Last Admin: 05/06/18 13:54 Dose: 40 meq Prazosin HCl (Minipress) 2 mg PO Q12HR [facility] Sodium Chloride (Sodium Chloride Flush Syringe 10 Ml) 10 ml IV BID [facility] Last Admin: 05/06/18 12:00 Dose: Not Given Sodium Chloride (Sodium Chloride Flush Syringe 10 Ml) 10 ml IV PRN PRN PRN Reason: LINE FLUSH Exam - Vital Signs Vital signs: Vital Signs Temp Pulse Resp BP Pulse Ox 98.5 F 117 H 18 168/86 97 05/05/18 12:14 05/05/18 12:14 05/05/18 12:14 05/05/18 12:14 05/05/18 12:14 - Physical Exam Narrative exam: General appearance: well-developed, well-nourished EENT: ATNC, PERRL, mucous membranes moist Neck: no JVD, no thyromegaly Respiratory: Present: Clear to Auscultation Cardiology: regular, normal heart rate, S1S2, no murmurs Gastrointestinal: normoactive bowel sounds Integumentary: no rash, warm and dry Neurologic: no focal deficit, no asterixis, alert and oriented x3 Psychiatric: cooperative Results - Lab Results 05/05/18 12:43 05/06/18 13:05 Most recent lab results Calcium 7.9 mg/dL (8.4-10.2) L 05/06/18 13:05 Phosphorus 3.20 mg/dL (2.5-4.5) 05/05/18 23:06 Magnesium 1.80 mg/dL (1.7-2.3) 05/05/18 23:06 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: -Hydrate with NS at 75 cc/hr. -Renally dose meds -Strict intake and output -Obtain daily weight Hyperlipidemia: -On statin Essential Hypertension: -Titrate BP meds PRN to keep SBP <130 Diabetes Mellitus type 2: -On Insulin, per primary Hyponatremia, Hypotonic: -Better when corrected for blood sugar -NS hydration Glen Dimas MD [phone]
[2018-05-06] MEDS ORDERED: HumaLOG SUB-Q SCH (18:11)
[2018-05-06 21:50] LABS: Calcium 7.9 mg/dL (8.4-10.2)
[2018-05-06] MEDS ORDERED: LANTUS SUB-Q SCH (22:00)
[2018-05-06] MEDS: NACL 0.9% 1000 ML 1,000 ML IV SCH (22:37)
[2018-05-06] MEDS: MINIPRESS PO SCH (22:37)
[2018-05-07] MEDS: HumaLOG SUB-Q SCH ×7 (08:49→22:00)
[2018-05-07] MEDS: APRESOLINE PO SCH ×3 (08:49→22:46)
[2018-05-07] MEDS: CATAPRES PO SCH ×3 (08:49→22:54)
--- NOTE | 2018-05-07 10:21 | Progress Note ---
Assessment and Plan Acute Kidney Injury possibly secondary to prerenal azotemia vs ischemic ATN, underlying CKD from Diabetes mellitus and HTN: - baseline Cr ~ 2.5 - will d/c IVF. -Renally dose meds -Strict intake and output -Obtain daily weight Hyperlipidemia: -On statin Essential Hypertension: -Titrate BP meds PRN to keep SBP <130 Diabetes Mellitus type 2: -On Insulin, per primary Hyponatremia, Hypotonic: -secondary to hyperglycemia Subjective Date of service: 05/07/18 Principal diagnosis: acute on chronic renal failure Interval history: feels better this AM Objective - Vital Signs Vital signs: Vital Signs - 12hr 05/06/18 05/06/18 05/07/18 22:29 23:16 05:35 Temperature 98.7 F 98.2 F Pulse Rate 92 H 97 H Respiratory 18 20 20 Rate Blood Pressure 163/87 145/82 154/80 O2 Sat by Pulse 97 96 Oximetry - General Appearance General appearance: well-developed, well-nourished, appears stated age EENT: ATNC, PERRL, mucous membranes moist Neck: no JVD, no carotid bruit Respiratory: Present: Clear to Ascultation. Absent: Rales, Ronchi Cardiology: regular, S1S2 Gastrointestinal: normoactive bowel sounds, no tenderness, no distended Integumentary: no rash, warm and dry Neurologic: no focal deficit, no asterixis, alert and oriented x3 Musculoskeletal: other (1+ pittign edema in BLE) Psychiatric: mood/affect appropriate, cooperative - Lab 05/05/18 12:43 05/06/18 22:55 Most recent lab results Calcium 7.9 mg/dL (8.4-10.2) L 05/06/18 20:14 Phosphorus 3.20 mg/dL (2.5-4.5) 05/05/18 23:06 Magnesium 1.80 mg/dL (1.7-2.3) 05/05/18 23:06
[2018-05-07 10:32] LABS: Calcium 8.5 mg/dL (8.4-10.2)
[2018-05-07] MEDS: SODIUM CHLORIDE FLUSH SYRINGE 10 ML IV SCH ×2 (10:52→22:47)
[2018-05-07] MEDS: PROzac PO SCH (10:52)
[2018-05-07] MEDS: NORVASC PO SCH (10:52)
[2018-05-07] MEDS: COREG PO SCH ×2 (10:53→22:44)
[2018-05-07] MEDS: MINIPRESS PO SCH ×2 (10:53→22:55)
[2018-05-07] MEDS: LOVENOX SUB-Q SCH (10:53)
[2018-05-07] MEDS: HALFPRIN EC PO SCH (10:53)
[2018-05-07] MEDS: PEPCID PO SCH ×2 (10:57→22:44)
[2018-05-07] MEDS: NACL 0.9% 1000 ML 1,000 ML IV SCH (11:00)
[2018-05-07] MEDS ORDERED: HumaLOG SUB-Q SCH (16:37)
--- NOTE | 2018-05-07 16:38 | Progress Note ---
Assessment and Plan /Diabetic ketoacidosis , resolved anion gap disclosed, off insulin drip Transitioned to subcutaneous insulin On cardiac consistent carb diet, will adjust the insulin dose to prevent hypoglycemia /hypoglycemia, reduce insulin dose and monitor /Hypertensive urgency Resumed Clonidine, Hydralazine, Amlodipine and Coreg from home /Acute kidney injury. Consulted Nephrology, cont iv fluid /Hyperlipidemia. continue statin Full CODE STATUS Hospitalist Physical Gen : Not in acute distress, HEENT:Normocephalic, atraumatic Neck: supple, No JVD Lungs: Clear to auscultation, bilaterally, no rhonchi, no wheeze Heart :S1 and S2 reg, no murmurs, rubs or gallop Abd:soft, tender, no rebound tenderness, non distended, normal bowel sounds Ext: No edema, no clubbing, no cyanosis, Neuro: Awake,alert,oriented x 3, no focal signs Psych: Normal mood Subjective Date of service: 05/07/18 Principal diagnosis: acute on chronic renal failure Interval history: Feels better, No more vomiting BG at 40s today Objective - Constitutional Vitals: Vital Signs - 12hr 05/07/18 05/07/18 05:35 11:23 Temperature 98.2 F 98.0 F Pulse Rate 84 Respiratory 20 16 Rate Blood Pressure 154/80 135/72 O2 Sat by Pulse 96 Oximetry - Labs CBC & Chem 7: 05/05/18 12:43 05/07/18 13:44 Labs: Abnormal lab results 05/06/18 05/06/18 05/06/18 Range/Units 17:05 18:05 20:14 Sodium 134 L (137-145) mmol/L Chloride 93.0 L (98-107) mmol/L BUN 40 H (9-20) mg/dL Creatinine 2.4 H (0.8-1.5) mg/dL Glucose 414 H (75-100) mg/dL POC Glucose 44 L 205 H (70-105) Calcium 7.9 L (8.4-10.2) mg/dL 05/06/18 05/06/18 05/06/18 Range/Units 22:27 22:46 22:55 Sodium (137-145) mmol/L Chloride (98-107) mmol/L BUN (9-20) mg/dL Creatinine (0.8-1.5) mg/dL Glucose 555 H* (75-100) mg/dL POC Glucose > 500 H > 500 H (70-105) Calcium (8.4-10.2) mg/dL 05/07/18 05/07/18 05/07/18 Range/Units 04:54 07:46 09:43 Sodium (137-145) mmol/L Chloride 96.5 L (98-107) mmol/L BUN 36 H (9-20) mg/dL Creatinine 2.4 H (0.8-1.5) mg/dL Glucose 161 H (75-100) mg/dL POC Glucose 269 H 239 H (70-105) Calcium (8.4-10.2) mg/dL 05/07/18 05/07/18 05/07/18 Range/Units 12:01 12:23 13:44 Sodium (137-145) mmol/L Chloride (98-107) mmol/L BUN (9-20) mg/dL Creatinine (0.8-1.5) mg/dL Glucose 63 L (75-100) mg/dL POC Glucose < 40 L < 40 L (70-105) Calcium (8.4-10.2) mg/dL
[2018-05-07] MEDS ORDERED: LANTUS SUB-Q SCH ×2 (22:00)
[2018-05-08] MEDS: HumaLOG SUB-Q SCH ×2 (09:25→13:38)
[2018-05-08] MEDS: CATAPRES PO SCH ×2 (09:26→13:42)
[2018-05-08] MEDS: APRESOLINE PO SCH ×2 (09:26→13:47)
[2018-05-08] MEDS ORDERED: HumaLOG SUB-Q SCH (09:55)
--- NOTE | 2018-05-08 11:59 | Progress Note ---
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 Serum creatinine yesterday was 2.4, stable. -Likely has CKD from Diabetic Nephropathy and hypertensive Nephrosclerosis -Needs tight glycemic control -Avoid Nephrotoxic agents -Renally dose medications -Strict intake and output -Obtain daily weights -Continue to monitor renal function closely -Will need outpatient follow-up with Nephrology upon discharge, states he is under [facility] care Essential Hypertension: -On Coreg/Hydralazine/Amlodipine/Clonidine -Titrate BP meds PRN to keep SBP <130 Diabetes Mellitus type 2: -On Insulin -Tight glycemic control -As per primary team Hyponatremia, Hypotonic: -Sodium level yesterday was 138 Hyperlipidemia: -On Atorvastatin Subjective Date of service: 05/08/18 Principal diagnosis: acute on chronic renal failure Interval history: Patient seen standing up in room, had unsteady gait when trying to go back to bed, states its from his slippers that he is wearing Objective - Vital Signs Vital signs: Vital Signs - 12hr 05/08/18 05/08/18 05/08/18 06:01 09:26 10:51 Temperature 99.2 F 98.7 F Pulse Rate 81 92 H 76 Respiratory 18 20 Rate Blood Pressure 172/89 153/82 142/78 O2 Sat by Pulse 96 99 Oximetry - General Appearance General appearance: well-developed EENT: ATNC, PERRL Neck: no JVD, supple Respiratory: Present: Decreased Breath Sounds Cardiology: regular, S1S2 Gastrointestinal: normoactive bowel sounds Integumentary: warm and dry Neurologic: alert and oriented x3 Musculoskeletal: joint swelling - Lab 05/05/18 12:43 05/07/18 13:44 Most recent lab results Calcium 8.5 mg/dL (8.4-10.2) 05/07/18 09:43 Phosphorus 3.20 mg/dL (2.5-4.5) 05/05/18 23:06 Magnesium 1.80 mg/dL (1.7-2.3) 05/05/18 23:06
[2018-05-08] MEDS: MINIPRESS PO SCH (12:12)
[2018-05-08] MEDS: LOVENOX SUB-Q SCH (12:13)
[2018-05-08] MEDS: NORVASC PO SCH (12:13)
[2018-05-08] MEDS: HALFPRIN EC PO SCH (12:13)
[2018-05-08] MEDS: PEPCID PO SCH (12:13)
[2018-05-08] MEDS: PROzac PO SCH (12:13)
[2018-05-08] MEDS: SODIUM CHLORIDE FLUSH SYRINGE 10 ML IV SCH (12:14)
[2018-05-08] MEDS: COREG PO SCH (12:14)
--- NOTE | 2018-05-08 12:22 | Discharge Summary ---
Providers - Providers Date of Admission: 05/05/18 23:10 Date of discharge: 05/08/18 Attending physician: KOKI OTTO 05/06/18 09:01 Consult to Physician [CONS] Routine Comment: Consulting Provider: DEB FINLEY Physician Instructions: Reason For Exam: acute kidney injury Primary care physician: PRICING STRATEGIST Hospitalization Condition: Stable Pertinent studies: CXR - no focal consolidation Hospital course: 52 year old man with a history of diabetes, hypertension, chronic kidney disease , CVA with right-sided weakness came to emergency room with complaints of nausea and vomiting 2 days. In the ER his BG was 523 with anion gap of 35. He was placed on insulin drip and admitted to ICU with DKA protocol. His was then transitioned to subqu insulin when anion gap closed. Insulin dose was further adjusted for hypoglycemia. His renal function monitored and improved with IV fluid. He was then discharged home in stable condition. Discharge diagnosis and management: /Diabetic ketoacidosis , resolved Placed on insulin drip initially and then d/melissa when anion gap closed Transitioned to subcutaneous insulin On cardiac consistent carb diet, Adjusted insulin dose to prevent hypoglycemia /hypoglycemia, reduced insulin dose and monitored BG qACHS /Hypertensive urgency, resolved Resumed Clonidine, Hydralazine, Amlodipine and Coreg from home /Acute kidney injury on CKD Consulted Nephrology, Renal function came to baseline with iv fluid /H/o CVA with right sided weakness cont aspirin and statin /Hyperlipidemia. continue statin Full CODE STATUS Hospitalist Physical Gen : Not in acute distress, HEENT:Normocephalic, atraumatic Neck: supple, No JVD Lungs: Clear to auscultation, bilaterally, no rhonchi, no wheeze Heart :S1 and S2 reg, no murmurs, rubs or gallop Abd:soft, tender, no rebound tenderness, non distended, normal bowel sounds Ext: No edema, no clubbing, no cyanosis, Neuro: Awake,alert,oriented x 3, no focal signs Psych: Normal mood Disposition: DC-01 TO HOME OR SELFCARE Time spent for discharge: 34 minutes Core Measure Documentation - Palliative Care Palliative Care/ Comfort Measures: Not Applicable - Core Measures Any of the following diagnoses?: history only Exam - Constitutional Vitals: Temp Pulse Resp BP Pulse Ox 98.7 F 76 20 142/78 99 05/08/18 10:51 05/08/18 10:51 05/08/18 10:51 05/08/18 10:51 05/08/18 10:51 Plan Activity: advance as tolerated Weight Bearing Status: Weight Bear as Tolerated Diet: low fat, low salt, diabetic Additional Instructions: f/u with PCP/[facility] [facility] in one week Follow up with: PRIMARY CAREMD [Primary Care Provider] - 3-5 Days
[2018-05-08 13:48] VITALS: BP 125/70
== END 2018-05-08 15:48 | disposition home health service (06) | DRG 682 ==
LOC: ED 11:59 → CC1 23:10 → 3A 05-06 11:31
PROVIDERS: ADMIT Internal Medicine; ATTEND Internal Medicine
DX: N17.9 Acute kidney failure, unspecified (principal); E11.10 Type 2 diabetes mellitus with ketoacidosis without coma; E87.1 Hypo-osmolality and hyponatremia; E11.22 Type 2 diabetes mellitus with diabetic chronic kidney disease; I12.9 Hypertensive chronic kidney disease with stage 1 through stage 4 chronic kidney disease, or unspecified chronic kidney disease; N18.9 Chronic kidney disease, unspecified; E11.649 Type 2 diabetes mellitus with hypoglycemia without coma; I16.0 Hypertensive urgency; E78.5 Hyperlipidemia, unspecified; F17.200 Nicotine dependence, unspecified, uncomplicated; Z72.89 Other problems related to lifestyle; Z86.73 Personal history of transient ischemic attack (TIA), and cerebral infarction without residual deficits; Z82.49 Family history of ischemic heart disease and other diseases of the circulatory system; Z79.82 Long term (current) use of aspirin; Z79.899 Other long term (current) drug therapy
CPT/HCPCS: 36415; 71045; 80048; 80061; 81001; 82550; 82553; 82805; 82947; 82962; 83036; 83735; 84100; 84484; 85025; 93005; 93010; A9270-GY; J1650; J1815; J2405; J7030; Q0162